=== PATIENT | male | born 1945 | race Caucasian/White ===

== ENCOUNTER 2017-07-21 13:19 | Inpatient (IN) | payer MEDICARE, SELFPAY ==
[2017-07-21] VITALS (8 sets, daily range): BP systolic 100–129; BP diastolic 51–95; PULSE 63–80; RESP 18–20; TEMP 36.1–36.8; O2SAT 93–100; BMI 28.2
--- NOTE | 2017-07-21 14:05 | EKG12_ITS ---
Test Reason : LOWER EXTREMITY Blood Pressure : / mmHG Vent. Rate : 065 BPM Atrial Rate : 064 BPM P-R Int : 000 ms QRS Dur : 106 ms QT Int : 460 ms P-R-T Axes : 000 -35 070 degrees QTc Int : 478 ms Atrial fibrillation with premature ventricular or aberrantly conducted complexes Left axis deviation Inferior infarct , age undetermined Abnormal ECG Confirmed by ALISA ELMORE, LAVERNE ([id number]), photograph editor MICHELE DELACRUZ ([id number]) on 07/25/2017 2:49:46 PM Referred By: ELBA Confirmed By:LAVERNE CUELLAR MD
--- NOTE | 2017-07-21 14:06 | ED.VIS.GEN ---
History of Present Illness Chief Complaint: Wound Informant: Patient, Family Onset: Days - 4 Context: Gradual Onset Timing: Continuous Quality: Bruising, painful, red Location: Bilateral lower extremities Current Severity: Severe Maximum Severity: Severe Worsened by: Palpation, attempting to walk Relieved by: Leaving them alone Associated Symptoms: Generalized weakness, lightheadedness. No presyncope or syncope. No fever Narrative: Has chronic wounds of his lower extremities, his daughter helps to take care of him and has been keeping them clean, but she states that they started looking bad and becoming red and more painful for about 4 days. Seen at PCPs office today, and sent to ER because he looked ill, jaundiced, blood pressure 80/50, with pulse in the 50s, concern for sepsis. Family states that he has really just been sitting on his bottom and not getting up. He complains of discomfort there. - Past Medical History (1) CAD (coronary artery disease) Status: Chronic (2) CHF (congestive heart failure) Status: Chronic (3) CVA (cerebral vascular accident) Status: Chronic (4) Hypothyroidism Status: Chronic (5) h/o afib after cabg Status: Chronic (6) h/o cabg Status: Chronic Past Medical History - Allergies and Home Meds Allergies/Adverse Reactions: Allergies latex Allergy (Verified 07/21/17 13:21) Rash LEEANN Inhibitors Adverse Reaction (Verified 10/28/16 18:44) Other Home Medications: Home Medications Medication Instructions Recorded Amiodarone HCl [Amiodarone HCl] 200 mg PO DAILY 10/28/16 Atorvastatin Calcium [Lipitor] 20 mg PO QHS 10/28/16 Carvedilol [Coreg (Beta Kaycee)] 12.5 mg PO BID 10/28/16 Furosemide [Lasix] 40 mg PO DAILY 10/28/16 Levothyroxine [Synthroid] 88 mcg PO DAILY 10/28/16 Losartan Potassium [Losartan 25 mg PO DAILY 10/28/16 Potassium] Potassium Chloride [Klor-Con M10] 10 meq PO DAILY 10/28/16 Tamsulosin HCl [Flomax] 0.4 mg PO QHS 10/28/16 Warfarin [Coumadin ([facility])] 2.5 mg PO DAILY 10/28/16 Furosemide [Lasix] 20 mg PO DINNER 07/21/17 Sertraline HCl [Zoloft] 50 mg PO DAILY 07/21/17 Primary Care Physician: Donnie Marrero DO [Primary Care Provider] - Smoking Status: Former smoker Review of Systems All systems negative except as indicated General: Reports: Malaise Musculoskeletal: Reports: Extremity Pain Skin: Reports: Wounds Neurological: Reports: - - Lightheadedness without presyncope or syncope Physical Exam Vital Signs/Narrative: Vital Signs Temp Pulse Resp BP Pulse Ox 07/21/17 13:21 96.9 F L 80 20 H 125/53 H 93 Inital Vital Signs reviewed: Yes General: Well nourished, Well developed Head: Normocephalic, Atraumatic. Negative for: Trauma, Tenderness Eyes: Perrl, EOMI. Negative for: Scleral icterus ENT: Moist mucous membranes, No rhinorrhea. Negative for: Nasal congestion, Sinus tenderness Neck: Supple, Nontender, No lymphadenopathy Cardiovascular: Regular rate, Regular rhythm, No murmurs Respiratory: No distress, CTA bilaterally, Chest nontender Abdomen: Soft, Nontender, Nondistended - abdominal obesity, Normal bowel sounds : sacral decubitus ulceration x 2 w/o acute infection/abscess Back: Nontender, Normal Inspection Extremities: Nontender, No edema Skin: Normal color, - - Chronic bilateral lower extremity wounds scattered from lower leg into feet and web spaces that appear to be infected, no active expressible discharge, but significant erythema that blanches less than 3 seconds and significantly tender throughout all erythematous areas, up to proximal lower legs. Good range of motion of knees, but limited range of motion of ankle secondary to pain, and the fact that every time he does so, his legs touch his bed which creates pain. No subcutaneous emphysema palpated, no definite necrotic tissue. No visible lymphangitis. Neurological: Alert, Oriented x3, Cranial nerves II-XII grossly intact, Normal Strength, Normal Sensation Psychological: Normal affect Diagnostic/Tx/Re-eval Impressions Chest X-Ray 07/21/17 14:15 IMPRESSION: Cardiomegaly. Stable pleural parenchymal changes at the left lung base. Electronically Signed: Edgard Alejo MD at 15:14 EDT Tel [phone], Service support , 07/21/17 14:15 Chest 1 View (Portable) [RAD] Stat Laboratory Results 07/21/17 07/21/17 07/21/17 Range/Units 14:25 14:25 14:25 WBC 8.6 (4.4-11.0) K/mm3 RBC 4.28 L (4.6-6.2) M/mm3 Hgb 8.3 L (13.0-16.5) g/dl Hct 28.5 L (40-54) % MCV 66.6 L (80-94) fL MCH 19.4 L (27.0-32.0) pg MCHC 29.1 L (32-36) g/gl RDW 21.6 H (11.6-14.6) % RDW Differential 51.8 H (35.1-43.9) fl Plt Count 186 (150-450) K/mm3 MPV 8.2 (6.2-12.0) fl Immature Gran % (Auto) 0.100 (0.0-0.9) % Neut % (Auto) 76.1 H (47-70) % Lymph % (Auto) 7.9 L (19-41) % Emery % (Auto) 14.2 H (0-10) % Eos % (Auto) 1.4 (0-5) % Baso % (Auto) 0.3 (0-1) % Absolute Neuts (auto) 6.5 (2.0-7.7) X10^3/uL Absolute Lymphs (auto) 0.68 L (0.83-4.51) X10^3/ul Total Counted Not Reportable Differential Comment COMMENT PT 23.4 H (11.7-14.9) SECONDS INR 2.1 APTT 38.1 H (24.1-36.2) Seconds Sodium 133 L (136-145) mmol/L Potassium 3.8 (3.5-5.1) mmol/L Chloride 99 (98-107) mmol/L Carbon Dioxide 27.0 (21.0-32.0) mmol/L Anion Gap 7 (5-15) BUN 21 H (7-18) mg/dL Creatinine 1.47 H (0.70-1.30) mg/dL Estim Creat Clear Calc 52.81 ml/min Est GFR (MDRD) Af Amer 61 (>60) mL/min Est GFR (MDRD) Non-Af 50 L (>60) mL/min BUN/Creatinine Ratio 14.3 (10-20) RATIO Glucose 98 (74-106) mg/dL Lactic Acid (0.4-2.0) mmol/L Calcium 7.9 L (8.5-10.1) mg/dL Total Bilirubin 0.70 (0.20-1.00) mg/dL Direct Bilirubin 0.46 H (0.00-0.30) mg/dL AST 19 (15-37) U/L ALT 22 (16-61) U/L Alkaline Phosphatase 200 H (45-117) U/L Total Protein 7.2 (6.4-8.2) g/dL Albumin 2.9 L (3.2-5.0) g/dL Globulin 4.3 H (2.2-4.2) g/dL Albumin/Globulin Ratio 0.7 L (0.9-2.4) RATIO 05/14/18 Range/Units 14:25 WBC (4.4-11.0) K/mm3 RBC (4.6-6.2) M/mm3 Hgb (13.0-16.5) g/dl Hct (40-54) % MCV (80-94) fL MCH (27.0-32.0) pg MCHC (32-36) g/gl RDW (11.6-14.6) % RDW Differential (35.1-43.9) fl Plt Count (150-450) K/mm3 MPV (6.2-12.0) fl Immature Gran % (Auto) (0.0-0.9) % Neut % (Auto) (47-70) % Lymph % (Auto) (19-41) % Emery % (Auto) (0-10) % Eos % (Auto) (0-5) % Baso % (Auto) (0-1) % Absolute Neuts (auto) (2.0-7.7) X10^3/uL Absolute Lymphs (auto) (0.83-4.51) X10^3/ul Total Counted Differential Comment PT (11.7-14.9) SECONDS INR APTT (24.1-36.2) Seconds Sodium (136-145) mmol/L Potassium (3.5-5.1) mmol/L Chloride (98-107) mmol/L Carbon Dioxide (21.0-32.0) mmol/L Anion Gap (5-15) BUN (7-18) mg/dL Creatinine (0.70-1.30) mg/dL Estim Creat Clear Calc ml/min Est GFR (MDRD) Af Amer (>60) mL/min Est GFR (MDRD) Non-Af (>60) mL/min BUN/Creatinine Ratio (10-20) RATIO Glucose (74-106) mg/dL Lactic Acid 1.4 (0.4-2.0) mmol/L Calcium (8.5-10.1) mg/dL Total Bilirubin (0.20-1.00) mg/dL Direct Bilirubin (0.00-0.30) mg/dL AST (15-37) U/L ALT (16-61) U/L Alkaline Phosphatase (45-117) U/L Total Protein (6.4-8.2) g/dL Albumin (3.2-5.0) g/dL Globulin (2.2-4.2) g/dL Albumin/Globulin Ratio (0.9-2.4) RATIO - Medical Decision Making Consistent with cellulitis and wound infections, started on Zosyn empirically. Since there was the question of jaundice, liver enzymes were sent but they are okay. His pressures were low as an outpatient, but here they have been stable. He was given fluids anyhow, and antibiotics as above. No significant changes in the level of redness in his legs compared with the initial exam. We will offer him pain medication, and given the significant degree of cellulitis, I think admission for IV antibiotics and probably wound care, and after speaking with family, he may need placement after his acute admission. At this time, he is too weak to even stand on his own, especially because of the pain in his legs, not able to care for himself at home. ED Disposition - Plan for ED Patient: Disposition: Acute Care Hospital [facility] Chief Complaint: Wound Diagnosis: Cellulitis of both lower extremities, Chronic wound of extremity, Decubitus ulcer of sacral area Referrals: Donnie Marrero DO [Primary Care Provider] -
--- NOTE | 2017-07-21 14:13 | ED.RN ---
CASE MANAGEMENT NOTIFIED OF DAUGHTER'S CONCERNS VOICED TO THIS RN. BRANNON STATES PT IS NON-COMPLIANT WITH CARE, REFUSES TO GET OUT OF CHAIR, SLEEPS IN CHAIR, INCONTINENT OF URINE, NOT TAKING MEDS, VERBALLY ABUSIVE TO DAUGHTER AND , THREATENS PHYSICAL HARM TO WHEN ANGRY.
--- NOTE | 2017-07-21 14:15 | RAD_ITS ---
STUDY: X-RAY CHEST REASON FOR EXAM: Male, 72 years old. Lower extremity wounds. TECHNIQUE: Single AP portable view of the chest. COMPARISON: Comparison is made with prior study dated October 28, 2016. FINDINGS: Stable pleural parenchymal changes at the left lung base suggestive of pleural scarring and a left basilar scarring. Sternal cerclage wires and vascular clips are present from a prior sternotomy and coronary artery bypass graft procedure (CABG). Moderate cardiac enlargement. Normal mediastinum and alex. Normal visualized pulmonary arteries. There is atherosclerotic calcification of the aortic arch with tortuosity. There are diffuse degenerative changes of the visualized thoracic spine. Normal visualized ribs, clavicles, and shoulders. There is no demonstrated abnormality of the visualized soft tissue structures of the upper abdomen. RAD/Chest 1 View (Portable) IMPRESSION: Cardiomegaly. Stable pleural parenchymal changes at the left lung base. Electronically Signed: Edgard Alejo MD at 15:14 EDT Tel [phone], Service support ,
[2017-07-21] MEDS: 0.9% Normal Saline 1,000 ML IV.SOLN. 1000 ML IV (14:43)
[2017-07-21 14:47] LABS: International Normalized Ratio 2.1; Prothrombin Time (Protime)PT. 23.4 SECONDS (11.7-14.9)
[2017-07-21 14:48] LABS: Partial Thromboplast Time 38.1 Seconds (24.1-36.2)
[2017-07-21] MEDS: Piperacil/Tazobactam 3.375 GM/50 ML ML IV (14:48)
[2017-07-21 14:54] LABS: ALB/GLOB Ratio 0.7 RATIO (0.9-2.4); AST(SGOT) 19 U/L (15-37); Absolute Lymphocyte Count 0.68 X10^3/ul (0.83-4.51); Absolute Neutrophil Count 6.5 X10^3/uL (2.0-7.7); Alanine Aminotransfer ALT/SGPT 22 U/L (16-61); Albumin, Serum 2.9 g/dL (3.2-5.0); Alkaline Phosphatase 200 U/L (45-117); Anion Gap 7 (5-15); BUN 21 mg/dL (7-18); BUN/Creat Ratio 14.3 RATIO (10-20); Basophil# 0.03 X10^3/uL; Basophil% 0.3 % (0-1); Bilirubin, Direct 0.46 mg/dL (0.00-0.30); Calcium,Total 7.9 mg/dL (8.5-10.1); Chloride 99 mmol/L (98-107); Creatinine, Serum 1.47 mg/dL (0.70-1.30); EST Glomerular Filtration Rate 50 mL/min (>60); Eosinophil# 0.12 X10^3/uL; Eosinophils% 1.4 % (0-5); Est Glom Filt Rate - Afr Amer 61 mL/min (>60); Estimated Creatinine Clearance 52.81 ml/min; Globulin 4.3 g/dL (2.2-4.2); Glucose 98 mg/dL (74-106); Hematocrit 28.5 % (40-54); Hemoglobin 8.3 g/dl (13.0-16.5); Lymphocyte # 0.68 X10^3/ul (4.0); Lymphocyte % 7.9 % (19-41); Mean Corp Hgb Conc 29.1 g/gl (32-36); Mean Corpuscular Hgb 19.4 pg (27.0-32.0); Mean Corpuscular Volume 66.6 fL (80-94); Mean Platelet Vol. 8.2 fl (6.2-12.0); Monocyte# 1.22 X10^3/uL; Monocyte% 14.2 % (0-10); Neutrophil # 6.53 X10^3/uL (2.7-7.7); Neutrophil % 76.1 % (47-70); Platelet Count 186 K/mm3 (150-450); Potassium 3.8 mmol/L (3.5-5.1); Protein, Total 7.2 g/dL (6.4-8.2); RBC Distribution Width CV 21.6 % (11.6-14.6); RBC Distribution Width SD 51.8 fl (35.1-43.9); Red Blood Count 4.28 M/mm3 (4.6-6.2); Sodium Level 133 mmol/L (136-145); White Blood Count 8.6 K/mm3 (4.4-11.0)
[2017-07-21 14:56] LABS: POSITIVE COUNT NO; POSITIVE DIFFERENTIAL NO; POSITIVE MORPHOLOGY YES
[2017-07-21 14:57] LABS: Differential Indicated SCAN CRITERIA MET
[2017-07-21 15:02] LABS: Lactic Acid 1.4 mmol/L (0.4-2.0)
--- NOTE | 2017-07-21 15:59 | CASEMGMT ---
Social Work Note Face to face with the pt to complete initial assessment as pt is an anticipated admission. Introduced self and role at [facility]. Pt presents with pleasant affect and is eating. Requests that SW ask his daughter questions as he reports that she knows more than he does. Per the pt's daughter he lives with family in a two-story home. She denies that he has access issues and is able to manage the stair case that leads to their tub/shower. DME consists of a cane and rollator which the pt uses at baseline. Claims that they would like to get a standard walker. Daughter reports that the pt can independently complete ADL's, but chooses to not. She suspects dementia, but the pt has not received a diagnosis. She claims that he becomes very agitated in the evenings and has had trouble sleeping. Claims that his short-term memory went after his stroke, but his memory has been declining as well. She denies that he has chronic illnesses, but CHF is listed on the chart. Confirms that his PCP is Dr. Donnie Marrero and their preferred pharmacy is [facility]. Denies that he sees any specialists. The pt's daughter expresses frustration with the pt as evidenced by tone of voice and conversation directed at the pt. Inquire what their anticipated needs at discharge are at this time daughter is not sure. Denies that they have C services or that the pt has been in a SNF in the past. Denies have advanced directives and declines information at this time. Inform that RN MANDY or JARRED can assist with obtaining a script for a walker and recommendations for needs at discharge will be reviewed prior to discharge for a safe disposition. Understanding expressed and staff on assigned unit to follow for discharge planning. Maribell Smart, ACCOUNTING LECTURER, GASKET SUPERVISOR
--- NOTE | 2017-07-21 16:35 | ED.RN ---
PT AND DAUGHTER YELLING AT EACH OTHER IN ROOM, THIS RN HEARD FROM ANOTHER PT'S ROOM. RN IN TO SPEAK TO PT, PT DEMANDING FOOD. SANDWICH AND DRINK GIVEN. DAUGHTER TEARFUL, STATES I JUST DON'T KNOW WHAT TO DO ANYMORE. CASE MANAGEMENT IN TO SPEAK TO DAUGHTER. PT NOTED TO HAVE VERY POOR HYGIENE. DRIED BM ON BUTTOCKS, PRESSURE ULCERS NOTED ON BUTTOCKS (SEE WOUND ASSESSMENT), BUTTOCKS REDDENED, GROIN EXCORIATED. PER DAUGHTER PT SITS IN HIS CHAIR AND WETS HIMSELF, REFUSES TO CLEAN UP.
[2017-07-21] MEDS: Morphine 2 MG/ML Syringe IV (17:33)
--- NOTE | 2017-07-21 18:04 | ED.RN ---
PT STRAIGHT CATHED FOR STERILE URINE SPEC, LABELED AND SENT TO LAB BY THIS RN. LAB STATES THEY DO NOT HAVE URINE SPECIMEN, AWARE, DOES NOT WANT CATHED AGAIN.
--- NOTE | 2017-07-21 18:36 | PCM.HP.STD ---
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 Patient also has some wounds which the family is trying to manage but the patient compromises her care by not following instructions and sometimes intentionally been doing what they have done. There were concerns because of redness on his legs. Patient presented to his primary care's office and was hypotensive. Patient was sent to the emergency room for further evaluation. Patient was normotensive here but did receive IV fluids. Patient did have a lower extremity erythema and I was started on vancomycin. History is primarily obtained through the patient's daughter is a patient keeps asking when he is getting be going upstairs, as referencing his hospital room. [] Past Medical History Past Medical History (Chronic Problems): Chronic Problems Chronic wound of extremity (Chronic) Decubitus ulcer of sacral area (Chronic) Hypothyroidism (Chronic) h/o afib after cabg (Chronic) h/o cabg (Chronic) CVA (cerebral vascular accident) (Chronic) CAD (coronary artery disease) (Chronic) CHF (congestive heart failure) (Chronic) Allergies latex Allergy (Verified 07/21/17 13:21) Rash LEEANN Inhibitors Adverse Reaction (Verified 10/28/16 18:44) Other Home Medications: Ambulatory Orders Medication Instructions Recorded Amiodarone HCl [Amiodarone HCl] 200 mg PO DAILY 10/28/16 Atorvastatin Calcium [Lipitor] 20 mg PO QHS 10/28/16 Carvedilol [Coreg (Beta Kaycee)] 12.5 mg PO BID 10/28/16 Furosemide [Lasix] 40 mg PO DAILY 10/28/16 Levothyroxine [Synthroid] 88 mcg PO DAILY 10/28/16 Losartan Potassium [Losartan 25 mg PO DAILY 10/28/16 Potassium] Potassium Chloride [Klor-Con M10] 10 meq PO DAILY 10/28/16 Tamsulosin HCl [Flomax] 0.4 mg PO QHS 10/28/16 Warfarin [Coumadin ([facility]KC)] 2.5 mg PO DAILY 10/28/16 Furosemide [Lasix] 20 mg PO DINNER 07/21/17 Sertraline HCl [Zoloft] 50 mg PO DAILY 07/21/17 Surgical History: coronary bypass surgery Lives: Spouse/ Significant Other Smoking Status: Former smoker Tobacco Use: Cigarettes Alcohol: None Drugs: None - *Family History Maternal History Items: - - patient is confused and unable to get adequate family history from him. Review of Systems Constitutional: Denies: Chills, Fever, Weight Change Eyes: Denies: Blurred vision, Double vision HEENT: Denies: Head Aches, Sinus Congestion, Sinus Drainage Cardiovascular: Denies: Chest Pain, Palpitations Respiratory: Denies: Cough, Shortness of breath at rest, Sputum production Gastrointestinal: Denies: Abdominal Pain, Nausea, Vomiting Genitourinary: Denies: Dysuria Musculoskeletal: Denies: Joint Pain, Joint Tenderness Skin: Reports: Rash, Wounds Neurological: Denies: Numbness, Tingling, Focal weakness Hematologic/ Lymphatic: Denies: Easy Bruising, Easy Bleeding, Hx of blood clot VTE Information - Inpt Only VTE Present on Admission: No VTE Pharm Prophylaxis ordered?: Yes Patient Problems: Active and Suspected Problems Cellulitis of both lower extremities (Acute) - Physical Exam General: Cooperative, No apparent distress, - - Patient is awake and interactive. Oriented to self HEENT: Atraumatic, Normocephalic Oral: Moist Mucosa Neck: No Nodes, Thyroid Normal Size and Texture Lungs: Clear to auscultation, Normal air movement, No rhonchi, No wheeze Cardiovascular: Regular rate, Regular Rhythm, Normal S1, Normal S2, No murmurs Abdomen: Bowel Sounds Present, Soft, Non Tender, Non-Distended, No Hepato-splenomegaly Extremities: Edema, Tenderness Skin: - - Erythema of the lower extremities without warmth. Does have some superficial ulcerations and some skin sloughing on the lower extremities. No odor was appreciated. Palpation of his lower extremities is very tender to palpation. No clear line of demarcation of either lower extremities. Musculoskeletal: No Tenderness to Palpation of Joints or Extremities, No Muscle Wasting Neurological: Muscle tone normal, Sensory exam intact to light touch and pain Psych/Mental Status: Normal Affect, Appropriate Vital Signs Temp Pulse Resp BP Pulse Ox 36.8 C 64 18 100/73 96 07/21/17 14:44 07/21/17 18:10 07/21/17 18:10 07/21/17 18:10 07/21/17 17:37 Oxygen Delivery Method Room Air Weight: 99.79 kg Body Mass Index (BMI) 28.2 Laboratory Tests Past 24 Hrs 07/21/17 07/21/17 07/21/17 14:25 14:25 14:25 WBC 8.6 RBC 4.28 L Hgb 8.3 L Hct 28.5 L MCV 66.6 L MCH 19.4 L MCHC 29.1 L RDW 21.6 H RDW Differential 51.8 H Plt Count 186 MPV 8.2 Immature Gran % (Auto) 0.100 Neut % (Auto) 76.1 H Lymph % (Auto) 7.9 L Glenn % (Auto) 14.2 H Eos % (Auto) 1.4 Baso % (Auto) 0.3 Absolute Neuts (auto) 6.5 Absolute Lymphs (auto) 0.68 L Total Counted Not Reportable Differential Comment COMMENT PT 23.4 H INR 2.1 APTT 38.1 H Sodium 133 L Potassium 3.8 Chloride 99 Carbon Dioxide 27.0 Anion Gap 7 BUN 21 H Creatinine 1.47 H Estim Creat Clear Calc 52.81 Est GFR (MDRD) Af Amer 61 Est GFR (MDRD) Non-Af 50 L BUN/Creatinine Ratio 14.3 Glucose 98 Lactic Acid Calcium 7.9 L Total Bilirubin 0.70 Direct Bilirubin 0.46 H AST 19 ALT 22 Alkaline Phosphatase 200 H Total Protein 7.2 Albumin 2.9 L Globulin 4.3 H Albumin/Globulin Ratio 0.7 L 07/21/17 14:25 WBC RBC Hgb Hct MCV MCH MCHC RDW RDW Differential Plt Count MPV Immature Gran % (Auto) Neut % (Auto) Lymph % (Auto) Glenn % (Auto) Eos % (Auto) Baso % (Auto) Absolute Neuts (auto) Absolute Lymphs (auto) Total Counted Differential Comment PT INR APTT Sodium Potassium Chloride Carbon Dioxide Anion Gap BUN Creatinine Estim Creat Clear Calc Est GFR (MDRD) Af Amer Est GFR (MDRD) Non-Af BUN/Creatinine Ratio Glucose Lactic Acid 1.4 Calcium Total Bilirubin Direct Bilirubin AST ALT Alkaline Phosphatase Total Protein Albumin Globulin Albumin/Globulin Ratio Assessment/Plan Active and Suspected Problems Cellulitis of both lower extremities (Acute) 1. Bilateral lower extremity erythema, possible cellulitis Could be cellulitis though favoring is probably another process. But in the meantime, patient will be on ceftezole and and I will check wound cultures. I may concern is that this could be just venous stasis changes. Concerned the patient may have some arterial insufficiency as well that may complicate this overall picture. Will have the wound care see him Check ankle-brachial indexes 2. Cognitive impairment Prior to the patient's stroke 5 or 6 years ago, patient was very independent. Daughter states that they have been witnessing a gradual decline and patient has been very impulsive as well. Would recommend that he follow-up with a geriatric Center for for formal dementia evaluation. The patient does have dementia I would favor it probably being the vascular type given his prior history of stroke. 3. DVT prophylaxis with Lovenox 4. Advanced care planning: Discussed with patient's daughter. Patient has no power of assistant district attorney at this time and patient is not competent to make any adequate decision at this time. She has no current DNR order on file and therefore he is full CODE STATUS. Patient is next of kin is his is not currently present. Recommend leeann talk with case management in regards to formally setting up a power of assistant district attorney for the patient. Code Visit Inpatient E&M: 29202 Init Hosp L3
--- NOTE | 2017-07-21 18:44 | HP.PCM_ITS ---
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 Patient also has some wounds which the family is trying to manage but the patient compromises her care by not following instructions and sometimes intentionally been doing what they have done. There were concerns because of redness on his legs. Patient presented to his primary care's office and was hypotensive. Patient was sent to the emergency room for further evaluation. Patient was normotensive here but did receive IV fluids. Patient did have a lower extremity erythema and I was started on vancomycin. History is primarily obtained through the patient's daughter is a patient keeps asking when he is getting be going upstairs, as referencing his hospital room. [] Past Medical History Past Medical History (Chronic Problems): Chronic Problems Chronic wound of extremity (Chronic) Decubitus ulcer of sacral area (Chronic) Hypothyroidism (Chronic) h/o afib after cabg (Chronic) h/o cabg (Chronic) CVA (cerebral vascular accident) (Chronic) CAD (coronary artery disease) (Chronic) CHF (congestive heart failure) (Chronic) Allergies latex Allergy (Verified 07/21/17 13:21) Rash LEEANN Inhibitors Adverse Reaction (Verified 10/28/16 18:44) Other Home Medications: Ambulatory Orders Medication Instructions Recorded Amiodarone HCl [Amiodarone HCl] 200 mg PO DAILY 10/28/16 Atorvastatin Calcium [Lipitor] 20 mg PO QHS 10/28/16 Carvedilol [Coreg (Beta Kaycee)] 12.5 mg PO BID 10/28/16 Furosemide [Lasix] 40 mg PO DAILY 10/28/16 Levothyroxine [Synthroid] 88 mcg PO DAILY 10/28/16 Losartan Potassium [Losartan 25 mg PO DAILY 10/28/16 Potassium] Potassium Chloride [Klor-Con M10] 10 meq PO DAILY 10/28/16 Tamsulosin HCl [Flomax] 0.4 mg PO QHS 10/28/16 Warfarin [Coumadin ([facility])] 2.5 mg PO DAILY 10/28/16 Furosemide [Lasix] 20 mg PO DINNER 07/21/17 Sertraline HCl [Zoloft] 50 mg PO DAILY 07/21/17 Surgical History: coronary bypass surgery Lives: Spouse/ Significant Other Smoking Status: Former smoker Tobacco Use: Cigarettes Alcohol: None Drugs: None - *Family History Maternal History Items: - - patient is confused and unable to get adequate family history from him. Review of Systems Constitutional: Denies: Chills, Fever, Weight Change Eyes: Denies: Blurred vision, Double vision HEENT: Denies: Head Aches, Sinus Congestion, Sinus Drainage Cardiovascular: Denies: Chest Pain, Palpitations Respiratory: Denies: Cough, Shortness of breath at rest, Sputum production Gastrointestinal: Denies: Abdominal Pain, Nausea, Vomiting Genitourinary: Denies: Dysuria Musculoskeletal: Denies: Joint Pain, Joint Tenderness Skin: Reports: Rash, Wounds Neurological: Denies: Numbness, Tingling, Focal weakness Hematologic/ Lymphatic: Denies: Easy Bruising, Easy Bleeding, Hx of blood clot VTE Information - Inpt Only VTE Present on Admission: No VTE Pharm Prophylaxis ordered?: Yes Patient Problems: Active and Suspected Problems Cellulitis of both lower extremities (Acute) - Physical Exam General: Cooperative, No apparent distress, - - Patient is awake and interactive. Oriented to self HEENT: Atraumatic, Normocephalic Oral: Moist Mucosa Neck: No Nodes, Thyroid Normal Size and Texture Lungs: Clear to auscultation, Normal air movement, No rhonchi, No wheeze Cardiovascular: Regular rate, Regular Rhythm, Normal S1, Normal S2, No murmurs Abdomen: Bowel Sounds Present, Soft, Non Tender, Non-Distended, No Hepato- splenomegaly Extremities: Edema, Tenderness Skin: - - Erythema of the lower extremities without warmth. Does have some superficial ulcerations and some skin sloughing on the lower extremities. No odor was appreciated. Palpation of his lower extremities is very tender to palpation. No clear line of demarcation of either lower extremities. Musculoskeletal: No Tenderness to Palpation of Joints or Extremities, No Muscle Wasting Neurological: Muscle tone normal, Sensory exam intact to light touch and pain Psych/Mental Status: Normal Affect, Appropriate Vital Signs Temp Pulse Resp BP Pulse Ox 36.8 C 64 18 100/73 96 07/21/17 14:44 07/21/17 18:10 07/21/17 18:10 07/21/17 18:10 07/21/17 17:37 Oxygen Delivery Method Room Air Weight: 99.79 kg Body Mass Index (BMI) 28.2 Laboratory Tests Past 24 Hrs 07/21/17 07/21/17 07/21/17 14:25 14:25 14:25 WBC 8.6 RBC 4.28 L Hgb 8.3 L Hct 28.5 L MCV 66.6 L MCH 19.4 L MCHC 29.1 L RDW 21.6 H RDW Differential 51.8 H Plt Count 186 MPV 8.2 Immature Gran % (Auto) 0.100 Neut % (Auto) 76.1 H Lymph % (Auto) 7.9 L [place] % (Auto) 14.2 H Eos % (Auto) 1.4 Baso % (Auto) 0.3 Absolute Neuts (auto) 6.5 Absolute Lymphs (auto) 0.68 L Total Counted Not Reportable Differential Comment COMMENT PT 23.4 H INR 2.1 APTT 38.1 H Sodium 133 L Potassium 3.8 Chloride 99 Carbon Dioxide 27.0 Anion Gap 7 BUN 21 H Creatinine 1.47 H Estim Creat Clear Calc 52.81 Est GFR (MDRD) Af Amer 61 Est GFR (MDRD) Non-Af 50 L BUN/Creatinine Ratio 14.3 Glucose 98 Lactic Acid Calcium 7.9 L Total Bilirubin 0.70 Direct Bilirubin 0.46 H AST 19 ALT 22 Alkaline Phosphatase 200 H Total Protein 7.2 Albumin 2.9 L Globulin 4.3 H Albumin/Globulin Ratio 0.7 L 07/21/17 14:25 WBC RBC Hgb Hct MCV MCH MCHC RDW RDW Differential Plt Count MPV Immature Gran % (Auto) Neut % (Auto) Lymph % (Auto) [place] % (Auto) Eos % (Auto) Baso % (Auto) Absolute Neuts (auto) Absolute Lymphs (auto) Total Counted Differential Comment PT INR APTT Sodium Potassium Chloride Carbon Dioxide Anion Gap BUN Creatinine Estim Creat Clear Calc Est GFR (MDRD) Af Amer Est GFR (MDRD) Non-Af BUN/Creatinine Ratio Glucose Lactic Acid 1.4 Calcium Total Bilirubin Direct Bilirubin AST ALT Alkaline Phosphatase Total Protein Albumin Globulin Albumin/Globulin Ratio Assessment/Plan Active and Suspected Problems Cellulitis of both lower extremities (Acute) 1. Bilateral lower extremity erythema, possible cellulitis * Could be cellulitis though favoring is probably another process. But in the meantime, patient will be on ceftezole and and I will check wound cultures. * I may concern is that this could be just venous stasis changes. Concerned the patient may have some arterial insufficiency as well that may complicate this overall picture. * Will have the wound care see him * Check ankle-brachial indexes 2. Cognitive impairment * Prior to the patient's stroke 5 or 6 years ago, patient was very independent. Daughter states that they have been witnessing a gradual decline and patient has been very impulsive as well. * Would recommend that he follow-up with a geriatric Center for for formal dementia evaluation. The patient does have dementia I would favor it probably being the vascular type given his prior history of stroke. 3. DVT prophylaxis with Lovenox 4. Advanced care planning: Discussed with patient's daughter. Patient has no power of commercial real estate attorney at this time and patient is not competent to make any adequate decision at this time. She has no current DNR order on file and therefore he is full CODE STATUS. Patient is next of kin is his is not currently present. Recommend leeann talk with case management in regards to formally setting up a power of commercial real estate attorney for the patient. Code Visit Inpatient E&M: 84285 Init Hosp L3
[2017-07-21] MEDS: Cefazolin 1 GM/50 ML BAG IV (21:53)
[2017-07-21] MEDS: Acetaminophen 325 MG Tablet 650 MG PO (21:53)
[2017-07-21] MEDS: Tamsulosin HCl 0.4 MG Capsule PO (21:55)
[2017-07-21] MEDS: Carvedilol 12.5 MG Tablet PO (21:55)
[2017-07-21] MEDS: Atorvastatin Calcium 20 MG Tablet PO (21:55)
[2017-07-21 22:30] LABS: Bacteria 0 SEEN /hpf (None Seen); Mucous, Urine 0 SEEN /hpf (<or=2+); Red Blood Cells-Urine 0 SEEN /hpf (0-5); Squamous Epithelial Cells - UA 0 SEEN /hpf (0-5)
[2017-07-21 22:37] LABS: Color, Urine Yellow (Yellow); Glucose, Dipstick Normal (Normal); Ketone-Dipstick Negative (Negative); Leukocyte Esterase-Dipstick 25 /ul (Negative); Nitrite-Dipstick Negative (Negative); Occult Blood-Urine Negative /ul (Negative); Protein-Dipstick 15 mg/dl (Negative); Specific Gravity, Urine 1.015 (1.002-1.030); Urine Bilirubin Dipstick Negative (Negative); Urine Clarity Clear (Clear); Urine Urobilinogen Normal (Normal)
[2017-07-21 22:49] LABS: White Blood Cells 0-5 SEEN /hpf (0-5)
[2017-07-21 23:51] LABS: M R Staph aureus DNA By PCR Negative (Negative); Probe Check PASS; Specimen Processing Control PASS; Staph aureus DNA By PCR POSITIVE (Negative)
[2017-07-22] VITALS (10 sets, daily range): BP systolic 90–139; BP diastolic 51–69; PULSE 62–90; RESP 16–18; TEMP 36.9–37.4; O2SAT 92–99
[2017-07-22] MEDS: Acetaminophen 325 MG Tablet 650 MG PO ×2 (06:05→11:53)
[2017-07-22] MEDS: Levothyroxine 88 MCG Tablet PO (06:05)
[2017-07-22] MEDS: Cefazolin 1 GM/50 ML BAG IV ×3 (06:05→21:04)
[2017-07-22 06:49] LABS: Absolute Lymphocyte Count 0.78 X10^3/ul (0.83-4.51); Absolute Neutrophil Count 4.9 X10^3/uL (2.0-7.7); Basophil# 0.05 X10^3/uL; Basophil% 0.7 % (0-1); Eosinophils% 2.9 % (0-5); Hematocrit 26.1 % (40-54); Hemoglobin 7.6 g/dl (13.0-16.5); Lymphocyte # 0.78 X10^3/ul (4.0); Lymphocyte % 11.2 % (19-41); Mean Corp Hgb Conc 29.1 g/gl (32-36); Mean Corpuscular Hgb 19.4 pg (27.0-32.0); Mean Corpuscular Volume 66.8 fL (80-94); Mean Platelet Vol. 9.2 fl (6.2-12.0); Monocyte# 1.05 X10^3/uL; Monocyte% 15.1 % (0-10); Neutrophil # 4.86 X10^3/uL (2.7-7.7); Neutrophil % 69.8 % (47-70); Platelet Count 208 K/mm3 (150-450); RBC Distribution Width CV 21.9 % (11.6-14.6); RBC Distribution Width SD 51.4 fl (35.1-43.9); Red Blood Count 3.91 M/mm3 (4.6-6.2)
[2017-07-22 06:50] LABS: Differential Indicated SCAN CRITERIA MET; International Normalized Ratio 2.2; POSITIVE COUNT NO; POSITIVE DIFFERENTIAL NO; POSITIVE MORPHOLOGY YES; Prothrombin Time (Protime)PT. 24.1 SECONDS (11.7-14.9)
[2017-07-22 07:04] LABS: Anion Gap 9 (5-15); BUN 21 mg/dL (7-18); BUN/Creat Ratio 15.2 RATIO (10-20); Calcium,Total 7.7 mg/dL (8.5-10.1); Chloride 100 mmol/L (98-107); Creatinine, Serum 1.38 mg/dL (0.70-1.30); EST Glomerular Filtration Rate 54 mL/min (>60); Est Glom Filt Rate - Afr Amer 65 mL/min (>60); Estimated Creatinine Clearance 56.26 ml/min; Glucose 108 mg/dL (74-106); Potassium 3.7 mmol/L (3.5-5.1); Sodium Level 134 mmol/L (136-145)
[2017-07-22 07:06] LABS: Differential Comment SCANNED
[2017-07-22 07:07] LABS: Anisocytosis 2+; Crenated RBC RARE; Hypochromasia 1+; Target Cells RARE
--- NOTE | 2017-07-22 09:09 | ECHOCS_ITS ---
Reason For Study: CHF Procedure This was a 2D Doppler, Color Flow transthoracic echocardiogram. Exam performed portable in patient room. Left Ventricle Moderate concentric left ventricular hypertrophy. Moderately dilated left ventricle. The estimated ejection fraction is 25 %. There are regional wall motion abnormalities as specified. Lateral- Basal: Severely Hypokinetic. Posterior-Basal: Severely hypokinetic. Infero-Basal: Severely Hypokinetic. Right Ventricle Severely dilated right ventricle. Mild to moderate global right ventricular systolic dysfunction. Atria The left atrium is severely enlarged. The right atrium is severely enlarged. Normal atrial septum. Mitral Valve The mitral valve is structurally normal. No prolapse or stenosis seen. Trivial mitral valve insufficiency. Tricuspid Valve Normal tricuspid valve. Mild to moderate (1-2+) tricuspid valve insufficiency. Right ventricular systolic pressure estimated to be 56 mmHg. Moderate pulmonary hypertension. Aortic Valve Trisinus/trileaflet aortic valve. Moderate diffuse aortic valve thickening. Moderate focal aortic valve thickening. Mild to moderate aortic stenosis. Peak aortic valve gradient 20 mmHg. Mean aortic valve gradient 11 mmHg. Trivial aortic valve insufficiency. Pulmonic Valve Normal pulmonic valve. Great Vessels Normal aortic root. Normal arch. The inferior vena cava is dilated. No collapse of the inferior vena cava. Pericardium/Pleural No pericardial effusion. Medication Diluted definity 2ml given slow IV push to enhance endocardial definition. MMode/2D Measurements & Calculations LVIDd: 4.7 cm IVSd: 1.4 cm LVOT diam: 2.0 cm LVIDs: 4.1 cm LVPWd: 1.4 cm LVOT area: 3.2 cm2 RVDd: 4.1 cm FS: 11.6 % Ao root diam: 3.5 cm LAV(MOD-bp): 101.5 ml LA A4 area: 27.7 cm2 LAV(MOD-bp) Indexed: 45.8 ml/m2 LAV(MOD-sp2): 102.8 ml LAV(MOD-sp4): 92.4 ml RA A4 area: 29.0 cm2 Doppler Measurements & Calculations MV E max elia: 125.7 cm/sec Lat Peak E' Elia: 13.1 cm/sec Med Peak E' Elia: 9.5 cm/sec MV A max elia: 45.4 cm/sec E/E' lat: 9.6 E/E' med: 13.3 MV E/A: 2.8 Ao V2 max: 225.3 cm/sec LV V1 max: 82.4 cm/sec SV(LVOT): 64.2 ml Ao max P.4 mmHg LV V1 max P.7 mmHg Ao V2 mean: 161.8 cm/sec LV V1 mean P.5 mmHg Ao mean P.4 mmHg LV V1 mean: 57.2 cm/sec Ao V2 VTI: 48.0 cm LV V1 VTI: 19.9 cm LINDEN(I,D): 1.3 cm2 LINDEN(V,D): 1.2 cm2 PA V2 max: 88.4 cm/sec TR max elia: 291.8 cm/sec TR max P.6 mmHg Interpretation Summary Moderate concentric left ventricular hypertrophy. Moderately dilated left ventricle. The estimated ejection fraction is 25 %. Lateral-Basal: Severely Hypokinetic. Posterior-Basal: Severely hypokinetic. Infero-Basal: Severely Hypokinetic. Severely dilated right ventricle. Mild to moderate global right ventricular systolic dysfunction. The left atrium is severely enlarged. The right atrium is severely enlarged. Trivial mitral valve insufficiency. Mild to moderate (1-2+) tricuspid valve insufficiency. Right ventricular systolic pressure estimated to be 56 mmHg. Moderate pulmonary hypertension. Mild to moderate aortic stenosis. Trivial aortic valve insufficiency. Pt appears to be in atrial fibrillation. The study was technically difficult. There is no comparison study available. Contrast injection was performed. Ordering Physician: Sarika Beth Referring Physician: TAMMIE YOUNGBLOOD Performed By: Renita Velazquez RDCS
[2017-07-22] MEDS: Sertraline 50 MG Tablet PO (09:11)
[2017-07-22] MEDS: Enoxaparin 40 MG/0.4 ML Syringe SC (09:11)
[2017-07-22] MEDS: Amiodarone 200 MG Tablet PO (09:11)
[2017-07-22] MEDS: Carvedilol 12.5 MG Tablet PO ×2 (09:11→21:03)
--- NOTE | 2017-07-22 09:13 | PCM.PROGNOTE ---
Subjective: Chief complaint: Follow-up after admission for bilateral lower extremity pain, redness and ulcers probably due to arterial ulcers and superimposed secondary bacterial infection/cellulitis. Patient seen and examined. No acute events overnight. Patient is alert and oriented but he is not able to provide any good history. He kept asking me about his phone number. He complained of bilateral leg pain, more on the right leg. Denied chest pain shortness of breath. His vital signs are stable. - Physical Exam General: Alert, No apparent distress, Disoriented, Non-Cooperative HEENT: Atraumatic, PERRLA, EOMI Oral: Moist Mucosa, No Gingival or Mucosal Lesions/ Ulcerations Neck: Supple, No JVD, Negative Carotid Bruits, Trachea Midline, Thyroid Normal Size and Texture Lungs: Clear to auscultation, No rhonchi, No wheeze, No rales, Diminished Cardiovascular: Regular rate, Regular Rhythm, Normal S1, Normal S2, PMI Normal Abdomen: Bowel Sounds Present, Soft, Non Tender, Non-Distended, No Hepato-splenomegaly Extremities: No clubbing, No cyanosis, No edema, - - Bilateral legs: Multiple superficial ulcers, dusky skin, tender, states dermatitis, mild erythema. Skin: No rashes, Ulcer/ Wound Lymphatic: No Cervical, Supraclavicular, or Inguinal Adenopathy Neurological: Cranial nerves II-XII grossly intact, Neuro grossly intact Psych/Mental Status: Anxious Vital Signs Temp Pulse Resp BP Pulse Ox 99.4 F H 90 18 105/57 L 93 07/22/17 08:52 07/22/17 09:01 07/22/17 08:52 07/22/17 08:52 07/22/17 08:52 Oxygen Delivery Method Room Air Intake and Output for Last 24 Hours 07/20/17 07/21/17 07/22/17 23:59 23:59 23:59 Intake Total 2178 / 2178 Output Total 500 / 500 Balance 1678 / 1678 Laboratory Tests Past 24 Hrs 07/21/17 07/21/17 07/22/17 21:55 22:20 05:40 WBC 7.0 RBC 3.91 L Hgb 7.6 L Hct 26.1 L MCV 66.8 L MCH 19.4 L MCHC 29.1 L RDW 21.9 H RDW Differential 51.4 H Plt Count 208 MPV 9.2 Immature Gran % (Auto) 0.300 Neut % (Auto) 69.8 Lymph % (Auto) 11.2 L [place] % (Auto) 15.1 H Eos % (Auto) 2.9 Baso % (Auto) 0.7 Absolute Neuts (auto) 4.9 Absolute Lymphs (auto) 0.78 L Total Counted Not Reportable Differential Comment SCANNED RBC Morphology RARE Hypochromasia 1+ Anisocytosis 2+ Target Cells RARE PT INR Sodium Potassium Chloride Carbon Dioxide Anion Gap BUN Creatinine Estim Creat Clear Calc Est GFR (MDRD) Af Amer Est GFR (MDRD) Non-Af BUN/Creatinine Ratio Glucose Calcium Urine Color Yellow Urine Clarity Clear Urine pH 6.0 Ur Specific [place] 1.015 Urine Protein 15 H Urine Glucose (UA) Normal Urine Ketones Negative Urine Occult Blood Negative Urine Nitrite Negative Urine Bilirubin Negative Urine Urobilinogen Normal Ur Leukocyte Esterase 25 H Urine RBC 0 SEEN Urine WBC 0-5 SEEN Ur Squamous Epith Cells 0 SEEN Urine Bacteria 0 SEEN Urine Mucus 0 SEEN S.aureus Protein A PCR POSITIVE H MRSA (PCR) Negative 07/22/17 07/22/17 05:40 05:40 WBC RBC Hgb Hct MCV MCH MCHC RDW RDW Differential Plt Count MPV Immature Gran % (Auto) Neut % (Auto) Lymph % (Auto) [place] % (Auto) Eos % (Auto) Baso % (Auto) Absolute Neuts (auto) Absolute Lymphs (auto) Total Counted Differential Comment RBC Morphology Hypochromasia Anisocytosis Target Cells PT 24.1 H INR 2.2 Sodium 134 L Potassium 3.7 Chloride 100 Carbon Dioxide 25.0 Anion Gap 9 BUN 21 H Creatinine 1.38 H Estim Creat Clear Calc 56.26 Est GFR (MDRD) Af Amer 65 Est GFR (MDRD) Non-Af 54 L BUN/Creatinine Ratio 15.2 Glucose 108 H Calcium 7.7 L Urine Color Urine Clarity Urine pH Ur Specific [place] Urine Protein Urine Glucose (UA) Urine Ketones Urine Occult Blood Urine Nitrite Urine Bilirubin Urine Urobilinogen Ur Leukocyte Esterase Urine RBC Urine WBC Ur Squamous Epith Cells Urine Bacteria Urine Mucus S.aureus Protein A PCR MRSA (PCR) Clinical Impression(s) from Imaging Studies Chest X-Ray 07/21/17 14:15 IMPRESSION: Cardiomegaly. Stable pleural parenchymal changes at the left lung base. Electronically Signed: Edgard Alejo MD at 15:14 EDT Tel [phone], Service support , Medical Necessity - Tobacco Use Smoking Status: Former smoker Tobacco Use: Cigarettes Assessment/Plan This is a 72 years old male patient with multiple medical comorbidities presented to the medicine because of bilateral leg pain, redness of both legs and he was found to have multiple nonhealing ulcers on both legs with possible secondary bacterial infection as well as acute on chronic anemia. #1 bilateral lower extremity nonhealing ulcers/probable superimposed secondary bacterial infection/cellulitis: Those ulcers are likely arterial ulcers due to peripheral vascular disease. He does have surrounding mild erythema and minimal drainage. He is on IV cefazolin. MRSA screen is negative. The patient is very poor informant and was not able to provide any good history. It is unclear for how long does also has been there and for her low his pain has been going on. His vital signs are stable, afebrile. His routine blood work is remarkable for anemia and creatinine of 1.38. Plan: Continue IV antibiotics, stat bilateral lower extremity arterial duplex, wound dressing as per wound care nurse, repeat CBC and BMP tomorrow morning, obtain records from PCPs office, PT OT evaluation and treatment. #2 peripheral vascular disease: Ankle-brachial index reviewed, revealed index of 0.97 which is consistent with at least borderline peripheral arterial disease, may be up to mild to moderate peripheral arterial disease. He is on Coumadin, INR is therapeutic at 2.2. Plan: OxyIR as needed for pain, stat bilateral arterial duplex, may need to consult vascular surgery. #3 acute on chronic anemia: Reportedly, he does have history of anemia and blood transfusion. Today's hemoglobin is 7.6 g/dL. Patient denies any evidence of active bleeding from body orifices. Plan: Transfuse 1 unit of packed RBCs, iron studies, TIBC, serum ferritin, stool for occult blood. #4 stage I sacral ulcer: Right aspect of the upper anal cleft, does not look to be infected. Plan for wound care and dressing as the wound care nurse. per #4 CAD status post CABG: EKG reviewed, revealed A. fib without acute ischemic changes, rate is controlled. Continue statins, beta blockers and losartan, 2D echocardiogram. #5 chronic atrial fibrillation: Rate is controlled, blood pressure stable. EKG reviewed. Plan to continue Coreg and amiodarone for rate control, continue Coumadin for auscultation, INR is therapeutic. #6 hypothyroidism: Continue levothyroxine. #7 history of stroke: Stable, no acute issues. Continue statins and Coumadin. #8 congestive heart failure: Unclear type, probably systolic. Seems to be controlled, compensated. Plan for 2D echocardiogram, continue Coreg and losartan, hold Lasix for now. #9 stage III chronic kidney disease: His creatinine back and October, was 1.51. Admission creatinine 1.47, today's creatinine is 1.38, stable at baseline. #10 DVT prophylaxis: INR is 2.2. This note was generated with [employer] dictation software. It may contain incorrect words, spelling, and punctuation that were not noted in checking the note before signing. Code Visit Inpatient E&M: [id number] [facility] Hosp L3
--- NOTE | 2017-07-22 09:16 | ADU_ITS ---
Reason For Study: PVD Right Velocities Left Velocities Common Femoral Artery, dist = 121 cm./sec. Common Femoral Artery, dist = 99.8 cm./sec. Supf Femoral Artery, prox = 84.1 cm./sec. Supf. Femoral Artery, prox = 163 cm./sec. Supf Femoral Artery, mid = 43.4 cm./sec. Supf. Femoral Artery, mid = 104 cm./sec. Unable to demonstrate flow in the distal SFA. Supf. Femoral Artery, dist = 135 cm./sec. Branch noted at distal SFA with a velocity of 261Profunda Femoral Artery = 82.5 cm./sec. cm/s. Popliteal Artery, mid = 61.9 cm./sec. Profunda Femoral Artery = 47.9 cm./sec. Post. Tibial Artery, prox = 51.1 cm./sec. Popliteal Artery, mid = 66.8 cm./sec. Post Tibial Artery, mid = 45.2 cm./sec. Post. Tibial Artery, mid = 17.3 cm./sec. Post Tibial Artery, dist. = 89.4 cm./sec. Post. Tibial Artery, dist = 29.1 cm./sec. Peroneal Artery,dist. = 89.4 cm./sec. Ant. Tibial Artery, prox = 40.1 cm./sec. Ant. Tibial Artery, distal = 74.6 cm./sec. Ant. Tibial Artery, dist = 42.4 cm./sec. Ant Tibial Artery, mid = 58.9 cm./sec. Unable to demonstrate flow in the Peroneal A. Ant.Tibial Artery, prox = 74.6 cm./sec. Procedure The exam was diagnostic. Exam performed portable in patient room. Difficult study due to wounds and pt movement. Interpretation Summary 1. right leg with SFA and peroneal occlussion. monophasic flow at ankle. 2. Left leg with no significant stenosis seen but decreased into femoral with biphasic flow and maintained through anterior tibial with posterior tibial and peroneal monophasic flow. Ordering Physician: Sarika Beth Performed By: Jay Jay Mcgovern RVT
--- NOTE | 2017-07-22 09:16 | PN_ITS ---
Subjective: Chief complaint: Follow-up after admission for bilateral lower extremity pain, redness and ulcers probably due to arterial ulcers and superimposed secondary bacterial infection/cellulitis. Patient seen and examined. No acute events overnight. Patient is alert and oriented but he is not able to provide any good history. He kept asking me about his phone number. He complained of bilateral leg pain, more on the right leg. Denied chest pain shortness of breath. His vital signs are stable. - Physical Exam General: Alert, No apparent distress, Disoriented, Non-Cooperative HEENT: Atraumatic, PERRLA, EOMI Oral: Moist Mucosa, No Gingival or Mucosal Lesions/ Ulcerations Neck: Supple, No JVD, Negative Carotid Bruits, Trachea Midline, Thyroid Normal Size and Texture Lungs: Clear to auscultation, No rhonchi, No wheeze, No rales, Diminished Cardiovascular: Regular rate, Regular Rhythm, Normal S1, Normal S2, PMI Normal Abdomen: Bowel Sounds Present, Soft, Non Tender, Non-Distended, No Hepato- splenomegaly Extremities: No clubbing, No cyanosis, No edema, - - Bilateral legs: Multiple superficial ulcers, dusky skin, tender, states dermatitis, mild erythema. Skin: No rashes, Ulcer/ Wound Lymphatic: No Cervical, Supraclavicular, or Inguinal Adenopathy Neurological: Cranial nerves II-XII grossly intact, Neuro grossly intact Psych/Mental Status: Anxious Vital Signs Temp Pulse Resp BP Pulse Ox 99.4 F H 90 18 105/57 L 93 07/22/17 08:52 07/22/17 09:01 07/22/17 08:52 07/22/17 08:52 07/22/17 08:52 Oxygen Delivery Method Room Air Intake and Output for Last 24 Hours 07/20/17 07/21/17 07/22/17 23:59 23:59 23:59 Intake Total 2178 / 2178 Output Total 500 / 500 Balance 1678 / 1678 Laboratory Tests Past 24 Hrs 07/21/17 07/21/17 07/22/17 21:55 22:20 05:40 WBC 7.0 RBC 3.91 L Hgb 7.6 L Hct 26.1 L MCV 66.8 L MCH 19.4 L MCHC 29.1 L RDW 21.9 H RDW Differential 51.4 H Plt Count 208 MPV 9.2 Immature Gran % (Auto) 0.300 Neut % (Auto) 69.8 Lymph % (Auto) 11.2 L [place] % (Auto) 15.1 H Eos % (Auto) 2.9 Baso % (Auto) 0.7 Absolute Neuts (auto) 4.9 Absolute Lymphs (auto) 0.78 L Total Counted Not Reportable Differential Comment SCANNED RBC Morphology RARE Hypochromasia 1+ Anisocytosis 2+ Target Cells RARE PT INR Sodium Potassium Chloride Carbon Dioxide Anion Gap BUN Creatinine Estim Creat Clear Calc Est GFR (MDRD) Af Amer Est GFR (MDRD) Non-Af BUN/Creatinine Ratio Glucose Calcium Urine Color Yellow Urine Clarity Clear Urine pH 6.0 Ur Specific [place] 1.015 Urine Protein 15 H Urine Glucose (UA) Normal Urine Ketones Negative Urine Occult Blood Negative Urine Nitrite Negative Urine Bilirubin Negative Urine Urobilinogen Normal Ur Leukocyte Esterase 25 H Urine RBC 0 SEEN Urine WBC 0-5 SEEN Ur Squamous Epith Cells 0 SEEN Urine Bacteria 0 SEEN Urine Mucus 0 SEEN S.aureus Protein A PCR POSITIVE H MRSA (PCR) Negative 07/22/17 07/22/17 05:40 05:40 WBC RBC Hgb Hct MCV MCH MCHC RDW RDW Differential Plt Count MPV Immature Gran % (Auto) Neut % (Auto) Lymph % (Auto) [place] % (Auto) Eos % (Auto) Baso % (Auto) Absolute Neuts (auto) Absolute Lymphs (auto) Total Counted Differential Comment RBC Morphology Hypochromasia Anisocytosis Target Cells PT 24.1 H INR 2.2 Sodium 134 L Potassium 3.7 Chloride 100 Carbon Dioxide 25.0 Anion Gap 9 BUN 21 H Creatinine 1.38 H Estim Creat Clear Calc 56.26 Est GFR (MDRD) Af Amer 65 Est GFR (MDRD) Non-Af 54 L BUN/Creatinine Ratio 15.2 Glucose 108 H Calcium 7.7 L Urine Color Urine Clarity Urine pH Ur Specific [place] Urine Protein Urine Glucose (UA) Urine Ketones Urine Occult Blood Urine Nitrite Urine Bilirubin Urine Urobilinogen Ur Leukocyte Esterase Urine RBC Urine WBC Ur Squamous Epith Cells Urine Bacteria Urine Mucus S.aureus Protein A PCR MRSA (PCR) Clinical Impression(s) from Imaging Studies Chest X-Ray 07/21/17 14:15 IMPRESSION: Cardiomegaly. Stable pleural parenchymal changes at the left lung base. Electronically Signed: Edgard Alejo MD at 15:14 EDT Tel [phone], Service support , Medical Necessity - Tobacco Use Smoking Status: Former smoker Tobacco Use: Cigarettes Assessment/Plan This is a 72 years old male patient with multiple medical comorbidities presented to the medicine because of bilateral leg pain, redness of both legs and he was found to have multiple nonhealing ulcers on both legs with possible secondary bacterial infection as well as acute on chronic anemia. #1 bilateral lower extremity nonhealing ulcers/probable superimposed secondary bacterial infection/cellulitis: Those ulcers are likely arterial ulcers due to peripheral vascular disease. He does have surrounding mild erythema and minimal drainage. He is on IV cefazolin. MRSA screen is negative. The patient is very poor informant and was not able to provide any good history. It is unclear for how long does also has been there and for her low his pain has been going on. His vital signs are stable, afebrile. His routine blood work is remarkable for anemia and creatinine of 1.38. Plan: Continue IV antibiotics, stat bilateral lower extremity arterial duplex, wound dressing as per wound care nurse, repeat CBC and BMP tomorrow morning, obtain records from PCPs office, PT OT evaluation and treatment. #2 peripheral vascular disease: Ankle-brachial index reviewed, revealed index of 0.97 which is consistent with at least borderline peripheral arterial disease , may be up to mild to moderate peripheral arterial disease. He is on Coumadin , INR is therapeutic at 2.2. Plan: OxyIR as needed for pain, stat bilateral arterial duplex, may need to consult vascular surgery. #3 acute on chronic anemia: Reportedly, he does have history of anemia and blood transfusion. Today's hemoglobin is 7.6 g/dL. Patient denies any evidence of active bleeding from body orifices. Plan: Transfuse 1 unit of packed RBCs, iron studies, TIBC, serum ferritin, stool for occult blood. #4 stage I sacral ulcer: Right aspect of the upper anal cleft, does not look to be infected. Plan for wound care and dressing as the wound care nurse. per #4 CAD status post CABG: EKG reviewed, revealed A. fib without acute ischemic changes, rate is controlled. Continue statins, beta blockers and losartan, 2D echocardiogram. #5 chronic atrial fibrillation: Rate is controlled, blood pressure stable. EKG reviewed. Plan to continue Coreg and amiodarone for rate control, continue Coumadin for auscultation, INR is therapeutic. #6 hypothyroidism: Continue levothyroxine. #7 history of stroke: Stable, no acute issues. Continue statins and Coumadin. #8 congestive heart failure: Unclear type, probably systolic. Seems to be controlled, compensated. Plan for 2D echocardiogram, continue Coreg and losartan, hold Lasix for now. #9 stage III chronic kidney disease: His creatinine back and October, was 1.51. Admission creatinine 1.47, today's creatinine is 1.38, stable at baseline. #10 DVT prophylaxis: INR is 2.2. This note was generated with Wizeline dictation software. It may contain incorrect words, spelling, and punctuation that were not noted in checking the note before signing. Code Visit Inpatient E&M: 16679 [facility] L3
--- NOTE | 2017-07-22 09:54 | NURSING ---
Physician requesting medical records from pcp. Pt is A&O x1 at this time. No answer at listed number for /daughter, msg left on vm to please return call.
[2017-07-22 09:59] LABS: Ferritin 39 ng/mL (26-388); Iron 18 ug/dL (65-175); Iron Binding Capacity,Total 356 ug/dL (250-450); PERCENT IRON SATURATION 5.1 % (15.0-55.0)
--- NOTE | 2017-07-22 12:13 | PCA ---
Addendum entered by Bridget Stephenson 07/22/17 12:15: obtained medical records , placed on front of chart Original Note: faxed informed consent for release of medical records to [facility] fax number : [phone]
--- NOTE | 2017-07-22 13:25 | NURSING ---
wound photo: left lateral lower leg
--- NOTE | 2017-07-22 13:25 | NURSING ---
wound photo: right medial lower leg
--- NOTE | 2017-07-22 13:26 | NURSING ---
wound photo: right foot
--- NOTE | 2017-07-22 13:29 | NURSING ---
wound photo: right lateral lower leg
--- NOTE | 2017-07-22 13:29 | NURSING ---
wound photo: right posterior lower leg
--- NOTE | 2017-07-22 13:30 | NURSING ---
wound photo: toes right foot
--- NOTE | 2017-07-22 13:31 | CASEMGMT ---
Tertiary hospitals in-network with [facility]: [facility], [facility], [facility], [facility].
[2017-07-22 15:11] LABS: Bedside Glucose 160 mg/dL (70-110)
[2017-07-22] MEDS: 0.9% NaCl Peripheral Flush Adult/Peds IV (15:12)
--- NOTE | 2017-07-22 16:25 | CHAPLAIN ---
Type of Pastoral Visit _x__ Initial Visit ___ Follow-up Visit ___ On-call Visit ___ General Patient Visit ___ Spiritual Assessment ___ Family Conference ___ Bereavement ___ Rapid Response ___ Code Blue ___ Other (describe below) Pastoral Care Referral From _x__ Patient ___ Family ___ Nurse ___ Physician ___ Civil Drafting Technician ___ Marketing Sales Manager ___ Other (describe below) Sacrament/Intervention ___ Active listening ___ Anointing ___ Anabaptism ___ Bereavement ___ Communion ___ Kalpana exploration ___ ___ Life review _x__ Prayer ___ Reconciliation ___ Sacrament of Sick _x__ Supportive presence ___ Wedding ___ Other (describe below) Pastoral Comments waited in hallway as RN was addressing patient care and doing vitals; pt is loud and verbally demanding of RN; pt demands his coffee and soda now; pt then apologizes to RN; this merchandising lead enters room while RN is finishing; this merchandising lead asks pt how he feels, who he lives with, family information, etc.; pt says that he should be home, lives with family and that he has little grandchildren; pt only answers questions asked of him and does not engage in conversation; pt does not give response when asked if he needs support or anything to help him; pt allows a prayer and turns down his TV at this time;
[2017-07-22 18:15] LABS: Bedside Glucose 153 mg/dL (70-110)
[2017-07-22] MEDS: Haloperidol Lactate 5 MG/ML Vial 1 MG IV (20:16)
--- NOTE | 2017-07-22 20:19 | NURSING ---
pt continues to scream and will not respond to verbal communication. pt will not use call villalobos but just continues to yell out for staff. tim dudley
[2017-07-22] MEDS: Atorvastatin Calcium 20 MG Tablet PO (21:03)
[2017-07-22] MEDS: Tamsulosin HCl 0.4 MG Capsule PO (21:03)
[2017-07-22 21:26] LABS: Bedside Glucose 170 mg/dL (70-110)
[2017-07-23] MEDS: Haloperidol Lactate 5 MG/ML Vial 1 MG IM (00:23)
--- NOTE | 2017-07-23 00:30 | NURSING ---
pt continues to scream and yell. emotional support given. pt yelling for water .pt npo at this time. informed pt 5 times that he cant have anything to drink. pt continues to scream.haldol im given.
[2017-07-23 02:19] VITALS: BP 131/71; PULSE 61; RESP 17; TEMP 36.8; O2SAT 95
[2017-07-23] MEDS: Cefazolin 1 GM/50 ML BAG IV ×3 (05:00→21:35)
[2017-07-23] MEDS: Haloperidol Lactate 5 MG/ML Vial 1 MG IV (05:35)
--- NOTE | 2017-07-23 05:37 | NURSING ---
pT THREATING THE THE NURSING STAFF. PT YELLING. PT SAID HE WAS GOING TO KICK OUR ASS. PT CONTINUES TO YELL UNABLE TO REASON WITH PT. HALDOL GIVEN. NURSE AT BEDSIDE. PT THREATING TO GET OUT OF BED AND HIT THIS NURSE IF HE DOES NOT GET WATER. TOLD PT ABOUT THE NPO FOR US. PT SAID I DONT GIVE A FUCK GET ME SOME WATER. NURSE UNABLE TO LEAVE PT BEDSIDE.
[2017-07-23 07:11] LABS: Absolute Lymphocyte Count 0.69 X10^3/ul (0.83-4.51); Absolute Neutrophil Count 4.9 X10^3/uL (2.0-7.7); Basophil# 0.04 X10^3/uL; Basophil% 0.6 % (0-1); Eosinophil# 0.14 X10^3/uL; Hematocrit 27.2 % (40-54); Hemoglobin 8.1 g/dl (13.0-16.5); Lymphocyte # 0.69 X10^3/ul (4.0); Lymphocyte % 9.7 % (19-41); Mean Corp Hgb Conc 29.8 g/gl (32-36); Mean Corpuscular Hgb 20.1 pg (27.0-32.0); Mean Corpuscular Volume 67.5 fL (80-94); Mean Platelet Vol. 8.2 fl (6.2-12.0); Monocyte# 1.31 X10^3/uL; Monocyte% 18.4 % (0-10); Neutrophil # 4.92 X10^3/uL (2.7-7.7); Neutrophil % 68.9 % (47-70); Platelet Count 173 K/mm3 (150-450); Prothrombin Time (Protime)PT. 22.5 SECONDS (11.7-14.9); RBC Distribution Width CV 22.1 % (11.6-14.6); RBC Distribution Width SD 54.5 fl (35.1-43.9); Red Blood Count 4.03 M/mm3 (4.6-6.2); White Blood Count 7.1 K/mm3 (4.4-11.0)
[2017-07-23 07:16] LABS: Anion Gap 6 (5-15); BUN 18 mg/dL (7-18); BUN/Creat Ratio 16.4 RATIO (10-20); Calcium,Total 7.8 mg/dL (8.5-10.1); Chloride 103 mmol/L (98-107); EST Glomerular Filtration Rate 70 mL/min (>60); Est Glom Filt Rate - Afr Amer 85 mL/min (>60); Estimated Creatinine Clearance 70.58 ml/min; Glucose 92 mg/dL (74-106); Potassium 3.8 mmol/L (3.5-5.1); Sodium Level 135 mmol/L (136-145)
[2017-07-23 07:17] LABS: POSITIVE COUNT NO; POSITIVE DIFFERENTIAL NO
[2017-07-23 07:18] LABS: Differential Indicated SCAN CRITERIA MET; POSITIVE MORPHOLOGY YES
[2017-07-23 07:30] LABS: Anisocytosis 2+; Platelet Estimate ADEQUATE (ADEQ); Polychromasia RARE
[2017-07-23 07:31] LABS: Hypochromasia 3+; Microcytosis 2+; Schistocytes RARE
--- NOTE | 2017-07-23 08:09 | LEAS ---
Arterial Study - Arterial Study Arterial Study: Date of scan 07/22/[address] Lowe History: Patient with arterial insufficiency Interpretation: Right lower extremity with very flattened waveform noted at the ankle on the right on the JAYLENE unable to get a waveform of the posterior tibial the dorsalis pedis is noncompressible and unable to determine an JAYLENE. On the duplex again no flow seen in the posterior tibial very poor monophasic signal noted the dorsalis pedis. Left lower extremity fairly normal waveform noted down at the ankle JAYLENE 1.06 of the posterior tibial 1.30 the dorsalis dorsalis pedis. Both vessels do show biphasic flow. Impression: 1. Evidence of occlusive disease on the right. The very poor waveform and monophasic flow. Unable to determine JAYLENE. Further evaluation as clinically warranted. 2. No evidence of severe occlusive disease on the left with a JAYLENE 1.30 and biphasic flow.
--- NOTE | 2017-07-23 08:12 | LEAS_ITS ---
Arterial Study - Arterial Study Arterial Study: Date of scan 07/22/[address] Lowe History: Patient with arterial insufficiency Interpretation: Right lower extremity with very flattened waveform noted at the ankle on the right on the JAYLENE unable to get a waveform of the posterior tibial the dorsalis pedis is noncompressible and unable to determine an JAYLENE. On the duplex again no flow seen in the posterior tibial very poor monophasic signal noted the dorsalis pedis. Left lower extremity fairly normal waveform noted down at the ankle JAYLENE 1.06 of the posterior tibial 1.30 the dorsalis dorsalis pedis. Both vessels do show biphasic flow. Impression: 1. Evidence of occlusive disease on the right. The very poor waveform and monophasic flow. Unable to determine JAYLENE. Further evaluation as clinically warranted. 2. No evidence of severe occlusive disease on the left with a JAYLENE 1.30 and biphasic flow.
[2017-07-23 09:38] LABS: Partial Thromboplast Time 41.7 Seconds (24.1-36.2)
[2017-07-23 10:39] VITALS: BP 121/75; PULSE 68; RESP 16; TEMP 37; O2SAT 96
[2017-07-23] MEDS: HEPARIN/D5w 25,000 UNITS 25,000 UNITS/250 ML IV.SOLN. 14 UNITS IV (10:41)
[2017-07-23] MEDS: 0.9% NaCl Peripheral Flush Adult/Peds IV (10:47)
[2017-07-23] MEDS: Sertraline 50 MG Tablet PO (10:54)
[2017-07-23] MEDS: Losartan Potassium 25 MG Tablet PO (10:54)
[2017-07-23] MEDS: Amiodarone 200 MG Tablet PO (10:54)
[2017-07-23] MEDS: Carvedilol 12.5 MG Tablet PO ×2 (10:54→21:35)
--- NOTE | 2017-07-23 12:02 | US_ITS ---
STUDY: ABDOMINAL ULTRASOUND REASON FOR EXAM: Male, 72 years old. Distended abdomen. Ascites. Cirrhosis. TECHNIQUE: Transabdominal ultrasound was performed with real-time and static foster scale imaging. TECHNICAL QUALITY: Limited. Examination limited due to the patient?s condition. COMPARISON: None. FINDINGS: Liver: The liver is enlarged and measures 22.1 cm. There is increased echogenicity consistent with fatty infiltration. The bile ducts are within normal limits. There is hepatic color flow. The direction of portal flow is hepatopetal. There is no demonstrated mass lesion. Small amount of free fluid is seen in the perihepatic space. Gallbladder: Normal distended gallbladder. The gallbladder wall is thickened and measures 4.3 mm. There is a negative sonographic Zarate's sign. There is no pericholecystic fluid. There are no gallstones. Sludge is seen within the gallbladder lumen. Common Bile Duct (C.B.D.): The common bile duct measures 4.5 mm. Pancreas: There is nonvisualization of the pancreas due to overlying bowel gas. Spleen: There is splenomegaly. The spleen measures 14.0 cm x 5.1 cm x 5.1 cm. Right Kidney: Normal size of the right kidney. The right kidney measures 11.3 cm x 5.6 x 5.6 cm. Normal renal cortex. The right cortex measures 1.8 cm. There is no demonstrated renal mass or cyst. There is no right hydronephrosis. Left Kidney: Normal size of the left kidney. The left kidney measures 10.1 cm x 5.4 cm x 5.9 cm. Normal renal cortex. The left cortex measures 1.6 cm. There is no demonstrated renal mass or cyst. There is no left hydronephrosis. Aorta: Not well seen. I.V.C.: The IVC is patent. There is no ascites. US/Abdomen Complete IMPRESSION: Hepatosplenomegaly. Small amount of free fluid in the perihepatic space. Thickening of the gallbladder wall. Sludge within the gallbladder lumen. Electronically Signed: Edgard Alejo MD at 12:47 EDT Tel [phone], Service support ,
--- NOTE | 2017-07-23 12:25 | PCM.PROGNOTE ---
Subjective: Chief complaint: Follow-up after admission for bilateral lower extremity pain, redness and ulcer, probable bilateral lower extremity cellulitis, more on the right lower extremity as well as peripheral vascular disease. Patient seen and examined. No acute events overnight. He is a very poor informant and not able to communicate appropriately. He mentioned that right leg pain is getting better. He remained ultimately confused and disoriented. Denied chest pain or shortness of breath. His vitals are stable. - Physical Exam General: Alert, Cooperative, No apparent distress, Disoriented HEENT: Atraumatic, PERRLA, EOMI Oral: Moist Mucosa, No Gingival or Mucosal Lesions/ Ulcerations Neck: Supple, No JVD, Negative Carotid Bruits, Trachea Midline, Thyroid Normal Size and Texture Lungs: Clear to auscultation, No rhonchi, No wheeze, No rales, Diminished Cardiovascular: Regular rate, Regular Rhythm, Normal S1, Normal S2, PMI Normal Abdomen: Bowel Sounds Present, Soft, Non Tender, Non-Distended, No Hepato-splenomegaly Extremities: No clubbing, No cyanosis Skin: - - Bilateral legs: Multiple superficial ulcers, dusky skin, tender, states dermatitis, mild erythema. Lymphatic: No Cervical, Supraclavicular, or Inguinal Adenopathy Neurological: Cranial nerves II-XII grossly intact, Neuro grossly intact Psych/Mental Status: Flat Affect Vital Signs Temp Pulse Resp BP Pulse Ox 98.6 F 68 16 121/75 H 96 07/23/17 10:39 07/23/17 10:39 07/23/17 10:39 07/23/17 10:39 07/23/17 10:39 Oxygen Delivery Method Room Air Intake and Output for Last 24 Hours 07/21/17 07/22/17 07/23/17 23:59 23:59 23:59 Intake Total 4414 / 4414 75 / 75 Output Total 900 / 900 350 / 350 Balance 3514 / 3514 -275 / -275 Microbiology Past 72 Hours 07/21/17 22:20 Urine Culture - Preliminary Urine Catheter - Catheter Gram positive organism 07/22/17 10:15 Gram Stain - Final Wound - Leg, Left Wound Culture - Preliminary Staphylococcus species 07/22/17 Unknown Stool Occult Blood (GOMEZ) - Final Stool Laboratory Tests Past 24 Hrs 07/22/17 07/23/17 07/23/17 09:30 06:48 06:48 WBC 7.1 RBC 4.03 L Hgb 8.1 L Hct 27.2 L MCV 67.5 L MCH 20.1 L MCHC 29.8 L RDW 22.1 H RDW Differential 54.5 H Plt Count 173 MPV 8.2 Immature Gran % (Auto) 0.400 Neut % (Auto) 68.9 Lymph % (Auto) 9.7 L [place] % (Auto) 18.4 H Eos % (Auto) 2.0 Baso % (Auto) 0.6 Absolute Neuts (auto) 4.9 Absolute Lymphs (auto) 0.69 L Total Counted Not Reportable Platelet Estimate ADEQUATE Polychromasia RARE Hypochromasia 3+ Anisocytosis 2+ Microcytosis 2+ Schistocytes RARE PT 22.5 H INR 2.0 APTT Sodium Potassium Chloride Carbon Dioxide Anion Gap BUN Creatinine Estim Creat Clear Calc Est GFR (MDRD) Af Amer Est GFR (MDRD) Non-Af BUN/Creatinine Ratio Glucose Calcium Crossmatch See Detail 07/23/17 07/23/17 06:48 06:48 WBC RBC Hgb Hct MCV MCH MCHC RDW RDW Differential Plt Count MPV Immature Gran % (Auto) Neut % (Auto) Lymph % (Auto) [place] % (Auto) Eos % (Auto) Baso % (Auto) Absolute Neuts (auto) Absolute Lymphs (auto) Total Counted Platelet Estimate Polychromasia Hypochromasia Anisocytosis Microcytosis Schistocytes PT INR APTT 41.7 H Sodium 135 L Potassium 3.8 Chloride 103 Carbon Dioxide 26.0 Anion Gap 6 BUN 18 Creatinine 1.10 Estim Creat Clear Calc 70.58 Est GFR (MDRD) Af Amer 85 Est GFR (MDRD) Non-Af 70 BUN/Creatinine Ratio 16.4 Glucose 92 Calcium 7.8 L Crossmatch POC Glucose 07/22/17 07/22/17 07/22/17 21:08 16:29 11:46 POC Glucose 170 H 153 H 160 H Medical Necessity - Tobacco Use Smoking Status: Former smoker Tobacco Use: Cigarettes Assessment/Plan This is a 72 years old male patient with multiple medical comorbidities presented to the medicine because of bilateral leg pain, redness of both legs and he was found to have multiple nonhealing ulcers on both legs with possible secondary bacterial infection as well as acute on chronic anemia. #1 bilateral lower extremity nonhealing ulcers/probable superimposed secondary bacterial infection/cellulitis: He is on IV cefazolin. His vital signs are stable, remained afebrile. Wound culture revealed Staphylococcus, final is pending. Those ulcers are likely arterial ulcers due to peripheral vascular disease. His MRSA screen was negative. Plan to continue same treatment, dressing as per wound care nurse. #2 peripheral vascular disease: Arterial duplex revealed right leg superficial femoral and perineal arteries occlusion. The same study was read by another physician and revealed flattened waveforms on posterior tibial and dorsalis pedis arteries suggestive of occlusive disease on the right side. This ischemia seemed to be chronic as patient has been having arterial ulcers which seemed to be ischemic ulcers. Plan: Start IV heparin drip, will try to consult vascular surgery and if not, patient will be transferred to tertiary care center for further treatment. #3 acute on chronic iron deficiency anemia: Reportedly, he does have history of anemia and blood transfusion. Today's hemoglobin is 8.1 g/dL. he received 1 unit of packed RBCs. According to his daughter, he had this issue recently and he underwent upper EGD and colonoscopy at [facility] that was unrevealing. Stool for occult blood was negative. Serum iron and iron saturation are very low. Plan: We will start IV iron therapy. #4 stage I sacral ulcer: Right aspect of the upper anal cleft, does not look to be infected. Plan for wound care and dressing as per the wound care nurse. #4 CAD status post CABG: EKG reviewed, revealed A. fib without acute ischemic changes, rate is controlled. Continue statins, beta blockers and losartan, 2D echocardiogram. #5 chronic atrial fibrillation: Rate is controlled, blood pressure stable. EKG reviewed. Plan to continue Coreg and amiodarone for rate control, continue Coumadin for auscultation, INR is therapeutic. #6 hypothyroidism: Continue levothyroxine. #7 history of stroke: Stable, no acute issues. Continue statins and Coumadin. #8 congestive heart failure: Unclear type, probably systolic. Seems to be controlled, compensated. Plan for 2D echocardiogram, continue Coreg and losartan, hold Lasix for now. #9 stage III chronic kidney disease: His creatinine back and October, was 1.51. Admission creatinine 1.47, today's creatinine is 1.10, stable at baseline. #10 DVT prophylaxis: INR is 2. This note was generated with Dragon dictation software. It may contain incorrect words, spelling, and punctuation that were not noted in checking the note before signing.
[2017-07-23 13:14] LABS: Hemoglobin A1c 7.3 % (4.2-6.3)
[2017-07-23 16:00] VITALS: BP 110/67; PULSE 68; RESP 18; TEMP 36.2; O2SAT 97
[2017-07-23 17:33] LABS: Partial Thromboplast Time 48.5 Seconds (24.1-36.2)
[2017-07-23] MEDS: Furosemide 40 MG Tablet PO (17:38)
[2017-07-23 21:30] VITALS: BP 127/80; PULSE 73; RESP 18; TEMP 36.7; O2SAT 97
[2017-07-23] MEDS: Tamsulosin HCl 0.4 MG Capsule PO (21:35)
[2017-07-23] MEDS: Haloperidol 1 MG Tablet PO (21:35)
[2017-07-23] MEDS: Atorvastatin Calcium 20 MG Tablet PO (21:35)
--- NOTE | 2017-07-23 22:10 | NURSING ---
pt frequently yelling out even after staff have been in room multiple times to meet needs, pt has had bath, snacks, repositioned, bed change, toileting, and as soon as staff leave room yells. asked pt not to yell out to use his call light which he uses but then immediately yells. Discussed appropriate behavior with pt multiple times, charge master specialist in to speak with pt also. pt bed exit on, room camera on, medicated by other rn with haldol & door closed will continue to monitor
--- NOTE | 2017-07-23 22:10 | NURSING ---
I had earlier assisted Elizabeth GOLDSTEIN to boost pt up in bed. He had his call light in his hand and he was instructed on how to use the call light and also how to operate his bed for positioning comfort. He was told not to yell out like he had been or we would have to close his door. At 2209, pt again yelled several times until Elizabeth and I responded by entering his room. This nurse advised him that I would call security if I needed to and that he needed to stop yelling because it was disturbing the patients around him. He was told that we would be closing his door and that he needed to use his call light, not yell, to get assistance.
[2017-07-24] VITALS (8 sets, daily range): BP systolic 104–148; BP diastolic 49–68; PULSE 60–78; RESP 16–18; TEMP 36.2–37.2; O2SAT 96–98; BMI 29.5
[2017-07-24] MEDS: Menthol/Lanolin/Calamine/Znox 113 GM Tube 1 APPLIC TOPICAL ×3 (03:10→21:27)
[2017-07-24] MEDS: Acetaminophen 325 MG Tablet 650 MG PO ×3 (03:10→19:42)
[2017-07-24] MEDS: Haloperidol 1 MG Tablet PO ×3 (03:10→19:42)
[2017-07-24] MEDS: Cefazolin 1 GM/50 ML BAG IV ×3 (05:31→21:25)
[2017-07-24] MEDS: Levothyroxine 88 MCG Tablet PO (05:33)
[2017-07-24 06:09] LABS: Absolute Lymphocyte Count 0.69 X10^3/ul (0.83-4.51); Absolute Neutrophil Count 5.3 X10^3/uL (2.0-7.7); Basophil# 0.06 X10^3/uL; Basophil% 0.8 % (0-1); Eosinophils% 2.6 % (0-5); Hematocrit 27.2 % (40-54); Hemoglobin 7.9 g/dl (13.0-16.5); Lymphocyte # 0.69 X10^3/ul (4.0); Lymphocyte % 9.1 % (19-41); Mean Corpuscular Volume 68.9 fL (80-94); Mean Platelet Vol. 8.2 fl (6.2-12.0); Monocyte# 1.26 X10^3/uL; Monocyte% 16.7 % (0-10); Neutrophil # 5.33 X10^3/uL (2.7-7.7); Neutrophil % 70.5 % (47-70); Platelet Count 166 K/mm3 (150-450); RBC Distribution Width CV 22.4 % (11.6-14.6); RBC Distribution Width SD 55.3 fl (35.1-43.9); Red Blood Count 3.95 M/mm3 (4.6-6.2); White Blood Count 7.6 K/mm3 (4.4-11.0)
[2017-07-24 06:10] LABS: Prothrombin Time (Protime)PT. 23.1 SECONDS (11.7-14.9)
[2017-07-24 06:12] LABS: Differential Indicated SCAN CRITERIA MET; POSITIVE COUNT NO; POSITIVE DIFFERENTIAL NO; POSITIVE MORPHOLOGY YES
[2017-07-24 06:54] LABS: Differential Comment SCANNED; Hypochromasia 3+; Polychromasia RARE
[2017-07-24 06:55] LABS: Acanthocytes 2+; Anisocytosis 3+; Target Cells 2+
--- NOTE | 2017-07-24 08:44 | PCM.PROGNOTE ---
Subjective: Chief complaint: Follow-up after admission for bilateral lower extremity pain, redness and ulcer, probable bilateral lower extremity cellulitis, more on the right lower extremity, acute on chronic anemia requiring blood transfusion as well as peripheral vascular disease. Patient seen and examined. No acute events overnight. He reported mild right leg ache, no more pain. Denied chest pain or shortness of breath. Vital signs are stable. - Physical Exam General: Alert, Cooperative, No apparent distress HEENT: Atraumatic, PERRLA, EOMI Oral: Moist Mucosa, No Gingival or Mucosal Lesions/ Ulcerations Neck: Supple, No JVD, Negative Carotid Bruits, Trachea Midline, Thyroid Normal Size and Texture Lungs: Clear to auscultation, No rhonchi, No wheeze, No rales, Diminished Cardiovascular: Regular rate, Regular Rhythm, Normal S1, Normal S2, PMI Normal Abdomen: Bowel Sounds Present, Soft, Non Tender, Non-Distended, No Hepato-splenomegaly Extremities: No clubbing, No cyanosis, - - Bilateral legs: Multiple superficial ulcers, dusky skin, tender, states dermatitis, mild erythema. Skin: No rashes, Ulcer/ Wound Neurological: Cranial nerves II-XII grossly intact, Neuro grossly intact Psych/Mental Status: Normal Affect, Appropriate Vital Signs Temp Pulse Resp BP Pulse Ox 98.0 F 60 16 148/63 H 96 07/24/17 03:07 07/24/17 03:07 07/24/17 03:07 07/24/17 03:07 07/24/17 03:07 Oxygen Delivery Method Room Air Weight: 229 lb 15.074 oz Body Mass Index (BMI) 29.5 Intake and Output for Last 24 Hours 07/22/17 07/23/17 07/24/17 23:59 23:59 23:59 Intake Total 4414 / 4414 1399 / 1399 1751 / 1751 Output Total 900 / 900 1050 / 1050 1300 / 1300 Balance 3514 / 3514 349 / 349 451 / 451 Microbiology Past 72 Hours 07/22/17 10:15 Gram Stain - Final Wound - Leg, Left Wound Culture - Preliminary Staphylococcus aureus Gram negative lou 07/21/17 22:20 Urine Culture - Preliminary Urine Catheter - Catheter Gram positive organism 07/22/17 Unknown Stool Occult Blood (GOMEZ) - Final Stool Laboratory Tests Past 24 Hrs 07/22/17 07/23/17 07/23/17 09:30 06:48 06:48 WBC RBC Hgb Hct MCV MCH MCHC RDW RDW Differential Plt Count MPV Immature Gran % (Auto) Neut % (Auto) Lymph % (Auto) [place] % (Auto) Eos % (Auto) Baso % (Auto) Absolute Neuts (auto) Absolute Lymphs (auto) Total Counted Differential Comment Polychromasia Hypochromasia Anisocytosis Target Cells Acanthocytes (Spur) PT INR APTT 41.7 H Hemoglobin A1c 7.3 H Crossmatch See Detail 07/23/17 07/24/17 07/24/17 16:51 05:32 05:32 WBC 7.6 RBC 3.95 L Hgb 7.9 L Hct 27.2 L MCV 68.9 L MCH 20.0 L MCHC 29.0 L RDW 22.4 H RDW Differential 55.3 H Plt Count 166 MPV 8.2 Immature Gran % (Auto) 0.300 Neut % (Auto) 70.5 H Lymph % (Auto) 9.1 L [place] % (Auto) 16.7 H Eos % (Auto) 2.6 Baso % (Auto) 0.8 Absolute Neuts (auto) 5.3 Absolute Lymphs (auto) 0.69 L Total Counted Not Reportable Differential Comment SCANNED Polychromasia RARE Hypochromasia 3+ Anisocytosis 3+ Target Cells 2+ Acanthocytes (Spur) 2+ PT 23.1 H INR 2.0 APTT 48.5 H Hemoglobin A1c Crossmatch Medical Necessity - Tobacco Use Smoking Status: Former smoker Tobacco Use: Cigarettes Assessment/Plan This is a 72 years old male patient with multiple medical comorbidities presented to the medicine because of bilateral leg pain, redness of both legs and he was found to have multiple nonhealing ulcers on both legs with possible secondary bacterial infection as well as acute on chronic anemia. #1 bilateral lower extremity nonhealing ulcers/probable superimposed secondary bacterial infection/cellulitis: He is on IV cefazolin. His vital signs are stable, remained afebrile. Wound culture revealed MSSA and gram-negative rods. His MRSA screen was negative. Plan to continue same treatment, dressing as per wound care nurse. #2 peripheral vascular disease: Arterial duplex revealed right leg superficial femoral and peroneal arteries occlusion. This is seem to be chronic ischemia. According to Dr. Lowe, patient does have collaterals down to the right foot. Patient is on aspirin and Coumadin, INR is therapeutic. Awaiting vascular surgery evaluation and recommendation. #3 acute on chronic iron deficiency anemia: Reportedly, he does have history of anemia and blood transfusion. Today's hemoglobin is 7.9 g/dL. he received 1 unit of packed RBCs. According to his daughter, he had this issue recently and he underwent upper EGD and colonoscopy at [facility] that was unrevealing. Stool for occult blood was negative. Serum iron and iron saturation are very low received 1 dose of IV iron sucrose. Plan: Start oral iron supplement, transfuse another unit of packed RBCs, repeat CBC tomorrow morning. #4 stage I sacral ulcer: Right aspect of the upper anal cleft, does not look to be infected. Plan for wound care and dressing as per the wound care nurse. #4 CAD status post CABG: EKG reviewed, revealed A. fib without acute ischemic changes, rate is controlled. Continue statins, beta blockers and losartan, 2D echocardiogram. #5 chronic atrial fibrillation: Rate is controlled, blood pressure stable. EKG reviewed. Plan to continue Coreg and amiodarone for rate control, continue Coumadin for anticoagulation, INR is therapeutic. #6 hypothyroidism: Continue levothyroxine. #7 history of stroke: Stable, no acute issues. Continue statins and Coumadin. #8 congestive heart failure: Unclear type, probably systolic. Seems to be controlled, compensated. Plan for 2D echocardiogram, continue Coreg and losartan, hold Lasix for now. #9 stage III chronic kidney disease: His creatinine back and October, was 1.51. Admission creatinine 1.47, yesterday's creatinine is 1.10, stable at baseline. #10 DVT prophylaxis: INR is 2. This note was generated with [employer] dictation software. It may contain incorrect words, spelling, and punctuation that were not noted in checking the note before signing. Code Visit Inpatient E&M: 66702 Subs Hosp L2
[2017-07-24] MEDS: Aspirin 81 MG TAB.CHEW PO (08:58)
[2017-07-24] MEDS: Furosemide 40 MG Tablet PO ×2 (10:38→18:02)
[2017-07-24] MEDS: Amiodarone 200 MG Tablet PO (10:38)
[2017-07-24] MEDS: Sertraline 50 MG Tablet PO (10:38)
[2017-07-24] MEDS: Carvedilol 12.5 MG Tablet PO ×2 (10:39→21:27)
[2017-07-24] MEDS: Losartan Potassium 25 MG Tablet PO (10:39)
--- NOTE | 2017-07-24 14:13 | CASEMGMT ---
RN CM Chart review, interdisciplinary rounds with PT/OT. Recommendation is for [facility] facility on dc. Corie STERN aware and will speak with pt/family re: dc planning. Christina ALEJANDREN RN ACM
--- NOTE | 2017-07-24 14:50 | CASEMGMT ---
Social Work Note SW received referral that SNF placement is needed at discharge for pt. SW in to meet with pt. Pt states that he would be willing to go to a SNF placement at discharge. Pt asked if he could go home first and this worker informed him that he couldn't and that he would go straight from the hospital to the SNF. Pt states understanding. Pt states that he would like a care home that is close to his home. SW printed of SNF list that take pt's insurance. This worker informed pt that this worker will find which SNF is located closest to pt's home. Pt states understanding. Pt denied additional needs or concerns at this time. JARRED placed a call to pt's daughter Saloni. Per Saloni she and her mother feel that placement would not be a good option for pt. Saloni states that she and her mother will have to be at the care home 30/09 with him and that the pt will just leave the facility. Saloni states that it would be better for home health care to be set up for pt as she and her mother is home. JARRED informed Saloni that a nurse from home health will only come out to home about once or twice a week and will teach someone to provide wound care. Saloni states understanding. Saloni states that she and her mother are patient's caregivers and are willing to continue to care for pt. Saloni states that she will be in around 4:00-4:30 this afternoon to see pt. JARRED printed off list of home health care agencies in network with pt's insurance. JARRED updated Charge Nurse Dos Santos of this information. JARRED provided Charge Nurse Raya with list of home health care agencies to provide to pt's family when they arrive at the hospital. JARRED updated ANGELITA Logan of this. JARRED will continue to follow along to assist with discharge planning. Plan: DILLON Espinosa NURSERY TEACHER, INDUSTRI[employer]ERTY APPRAISER
--- NOTE | 2017-07-24 17:26 | PCM.CONS.GEN ---
Problem List (1) Chronic wound of extremity Status: Chronic (2) PAD (peripheral artery disease) Status: Acute Reason for Consult Date of Consultation: 07/24/17 Reason for Consultation: Peripheral arterial disease and bilateral lower extremity wounds History of Present Illness: The patient is a 72 year old M that had a fall about 2 months ago and according to his since that time is pretty much been nonambulatory just sitting and sleeping in the chair. He started to develop wounds related to this had severe edema and cellulitis secondary to venous wounds on bilateral shins and left posterior calf. This is all related to just sitting in the chair not having the legs elevated and being nonambulatory. Patient also with some ischemic lesions on the toes of the right foot has peripheral arterial disease a little bit more severe in the right leg which is monophasic flow noted at the ankle with probably a distal chronic right SFA occlusion. Difficult to get much from the patient with prior to this episode if how bad his claudication symptoms were but it sounds like he was fairly active prior to this fall and the prolonged sitting. He is definitely now deconditioned at this point has pain related to the wounds in these infection. On his ABIs was unable to get a JAYLENE in the right foot the left was biphasic with JAYLENE 1.304 waveform on the right anterior tibial but I get a little bit better signal noted at the bedside. Difficult to get a posterior signal I can get a faint digital signal which is actually encouraging. Although it is faint. Patient also came in anemic this is getting worked up as well. Most of the history and everything is obtained from the is it is difficult to get anything from the patient. Patient did have a CABG ?3 in 2012 at [facility]. Postoperatively developed A. fib and had some type of 2 strokes noted. Also found to have carotid disease and had bilateral carotid stents placed in 2012. He does have known congestive heart failure. Exam Coumadin for the A. fib. Patient quit smoking in his 30s. No diabetes. Hypertension on meds he is on a hyperlipidemia. No history of DVTs. No history of varicose veins. No compression stockings. [] Past Medical History Past Medical History (Chronic Problems): Chronic Problems Stage III chronic kidney disease (Chronic) Chronic atrial fibrillation (Chronic) Status post coronary artery bypass graft (Chronic) Chronic wound of extremity (Chronic) Decubitus ulcer of sacral area (Chronic) Hypothyroidism (Chronic) CVA (cerebral vascular accident) (Chronic) CAD (coronary artery disease) (Chronic) CHF (congestive heart failure) (Chronic) Allergies latex Allergy (Verified 07/21/17 13:21) Rash LEEANN Inhibitors Adverse Reaction (Verified 10/28/16 18:44) Other Home Medications: Ambulatory Orders Medication Instructions Recorded Amiodarone HCl [Amiodarone HCl] 200 mg PO DAILY 10/28/16 Atorvastatin Calcium [Lipitor] 20 mg PO QHS 10/28/16 Carvedilol [Coreg (Beta Kaycee)] 12.5 mg PO BID 10/28/16 Furosemide [Lasix] 40 mg PO DAILY 10/28/16 Levothyroxine [Synthroid] 88 mcg PO DAILY 10/28/16 Losartan Potassium [Losartan 25 mg PO DAILY 10/28/16 Potassium] Potassium Chloride [Klor-Con M10] 10 meq PO DAILY 10/28/16 Tamsulosin HCl [Flomax] 0.4 mg PO QHS 10/28/16 Warfarin [Coumadin (PBKC)] 2.5 mg PO DAILY 10/28/16 Furosemide [Lasix] 20 mg PO DINNER 07/21/17 Sertraline HCl [Zoloft] 50 mg PO DAILY 07/21/17 Surgical History: coronary bypass surgery, total hip arthroplasty Lives: Spouse/ Significant Other Smoking Status: Former smoker Tobacco Use: Cigarettes Alcohol: None Drugs: None - *Family History Maternal History Items: - - patient is confused and unable to get adequate family history from him. Review of Systems Constitutional: Reports: - - Complains of pain in the legs.. Denies: Chills, Fever, Weight Change HEENT: Reports: Difficulty Hearing, -. Denies: Head Aches, Sinus Congestion, Sinus Drainage Cardiovascular: Denies: Chest Pain, Palpitations Respiratory: Denies: Cough, Shortness of breath at rest, Sputum production Gastrointestinal: Denies: Abdominal Pain, Nausea, Vomiting Genitourinary: Denies: Dysuria Musculoskeletal: Reports: - - Bilateral leg pain tender when touching or manipulating the legs some complaints through this Skin: Reports: Wounds - Bilateral calf wounds some lesions onto the right foot Neurological: Reports: - - Difficult to assess at this point Patient Problems: Active and Suspected Problems PAD (peripheral artery disease) (Acute) - Physical Exam General: Alert, Oriented x3 HEENT: Atraumatic, PERRLA, Normocephalic, - - Very poor hearing Oral: Moist Mucosa Neck: Supple, No JVD Lungs: Clear to auscultation Cardiovascular: Irregular Rate Abdomen: Soft, Non Tender Extremities: - - Out edema noted. Bilateral calf to fairchild wounds dressing was removed and reviewed. The edema is significantly improved from prior to coming into the hospital per the . Some ischemic lesions on the dorsum of the toes on the right foot. And a little bit between the toes dressings intact at this point. He has a monophasic dorsalis pedis signal and a faint digital signal is noted on the right. Vital Signs Temp Pulse Resp BP Pulse Ox 98.8 F 68 18 118/68 98 07/24/17 13:09 07/24/17 13:09 07/24/17 13:09 07/24/17 13:09 07/24/17 13:09 Oxygen Delivery Method Room Air Weight: 229 lb 15.074 oz Body Mass Index (BMI) 29.5 Intake and Output for Last 24 Hours 07/22/17 07/23/17 07/24/17 23:59 23:59 23:59 Intake Total 4414 / 4414 1399 / 1399 3146 / 3146 Output Total 900 / 900 1050 / 1050 1300 / 1300 Balance 3514 / 3514 349 / 349 1846 / 1846 Microbiology Past 72 Hours 07/21/17 22:20 Urine Culture - Preliminary Urine Catheter - Catheter Gram Positive Cocci 07/22/17 10:15 Gram Stain - Final Wound - Leg, Left Wound Culture - Preliminary Staphylococcus aureus Gram negative lou 07/22/17 Unknown Stool Occult Blood (GOMEZ) - Final Stool Laboratory Tests Past 24 Hrs 07/22/17 07/22/17 07/23/17 09:30 09:30 16:51 WBC RBC Hgb Hct MCV MCH MCHC RDW RDW Differential Plt Count MPV Immature Gran % (Auto) Neut % (Auto) Lymph % (Auto) [place] % (Auto) Eos % (Auto) Baso % (Auto) Absolute Neuts (auto) Absolute Lymphs (auto) Total Counted Differential Comment Polychromasia Hypochromasia Anisocytosis Target Cells Acanthocytes (Spur) PT INR APTT 48.5 H Crossmatch See Detail See Detail 07/24/17 07/24/17 05:32 05:32 WBC 7.6 RBC 3.95 L Hgb 7.9 L Hct 27.2 L MCV 68.9 L MCH 20.0 L MCHC 29.0 L RDW 22.4 H RDW Differential 55.3 H Plt Count 166 MPV 8.2 Immature Gran % (Auto) 0.300 Neut % (Auto) 70.5 H Lymph % (Auto) 9.1 L [place] % (Auto) 16.7 H Eos % (Auto) 2.6 Baso % (Auto) 0.8 Absolute Neuts (auto) 5.3 Absolute Lymphs (auto) 0.69 L Total Counted Not Reportable Differential Comment SCANNED Polychromasia RARE Hypochromasia 3+ Anisocytosis 3+ Target Cells 2+ Acanthocytes (Spur) 2+ PT 23.1 H INR 2.0 APTT Crossmatch Assessment/Plan Active and Suspected Problems PAD (peripheral artery disease) (Acute) #1. Patient with significant peripheral arterial disease. Wounds on the fairchild most related almost entirely related to being nonambulatory and just sitting in the chair. And from all of the swelling. He has enough circulation to heal these. He does have some ischemic lesions onto the dorsum of the toes and at some point here we will need to do a right leg angiogram with intervention trying to stent through the SFA on the right. This can be done as an outpatient where we will need to bridge his Coumadin at that point. After the intervention will need to have him on Plavix so need to workup fully is anemia of prior to starting this. We will try to do this over the next week or 2 I assume he will need to go to rehab and we can bring him in and do it from there. We will follow I's and inpatient #2. Venous wounds. This is all related to him sitting and sleeping in the chair for the last 2 months. Needs to be seen by physical therapy needs rehab needs to increase his walking and ambulation. Needs bilateral compression therapy and elevation when he is not walking. He is on antibiotics at this point will need long-term antibiotics for these wounds. Would be best served by follow-up with wound center once discharged from here as well.
[2017-07-24] MEDS: Ferrous Sulfate 325 MG Tablet PO (18:02)
[2017-07-24] MEDS: Atorvastatin Calcium 20 MG Tablet PO (21:28)
[2017-07-24] MEDS: Tamsulosin HCl 0.4 MG Capsule PO (21:28)
[2017-07-25] MEDS: Haloperidol 1 MG Tablet PO ×3 (01:18→22:52)
[2017-07-25 01:20] VITALS: BP 111/63; PULSE 63; RESP 18; TEMP 36.5; O2SAT 100
[2017-07-25] MEDS: Cefazolin 1 GM/50 ML BAG IV ×3 (05:13→22:55)
[2017-07-25] MEDS: Levothyroxine 88 MCG Tablet PO (05:14)
[2017-07-25 05:53] LABS: International Normalized Ratio 1.9
[2017-07-25 05:59] LABS: Absolute Lymphocyte Count 0.74 X10^3/ul (0.83-4.51); Absolute Neutrophil Count 5.6 X10^3/uL (2.0-7.7); Basophil# 0.05 X10^3/uL; Basophil% 0.6 % (0-1); Eosinophil# 0.21 X10^3/uL; Eosinophils% 2.7 % (0-5); Hematocrit 29.6 % (40-54); Hemoglobin 8.7 g/dl (13.0-16.5); Lymphocyte # 0.74 X10^3/ul (4.0); Lymphocyte % 9.6 % (19-41); Mean Corp Hgb Conc 29.4 g/gl (32-36); Mean Corpuscular Hgb 20.6 pg (27.0-32.0); Mean Corpuscular Volume 70.1 fL (80-94); Mean Platelet Vol. 8.6 fl (6.2-12.0); Monocyte% 14.2 % (0-10); Neutrophil # 5.59 X10^3/uL (2.7-7.7); Neutrophil % 72.3 % (47-70); Platelet Count 167 K/mm3 (150-450); RBC Distribution Width CV 22.7 % (11.6-14.6); RBC Distribution Width SD 56.5 fl (35.1-43.9); Red Blood Count 4.22 M/mm3 (4.6-6.2); White Blood Count 7.7 K/mm3 (4.4-11.0)
[2017-07-25 06:02] LABS: Differential Indicated SCAN CRITERIA MET; POSITIVE COUNT NO; POSITIVE DIFFERENTIAL NO; POSITIVE MORPHOLOGY YES
[2017-07-25 06:08] LABS: Anion Gap 9 (5-15); BUN 15 mg/dL (7-18); BUN/Creat Ratio 16.3 RATIO (10-20); Calcium,Total 7.5 mg/dL (8.5-10.1); Chloride 98 mmol/L (98-107); Creatinine, Serum 0.92 mg/dL (0.70-1.30); EST Glomerular Filtration Rate 86 mL/min (>60); Est Glom Filt Rate - Afr Amer 104 mL/min (>60); Estimated Creatinine Clearance 84.38 ml/min; Glucose 115 mg/dL (74-106); Potassium 3.6 mmol/L (3.5-5.1); Sodium Level 132 mmol/L (136-145)
[2017-07-25 06:38] LABS: Anisocytosis 1+; Crenated RBC 1+; Differential Comment SCANNED; Hypochromasia 1+; Polychromasia RARE
[2017-07-25 06:39] LABS: Schistocytes 1+
--- NOTE | 2017-07-25 07:55 | PN_ITS ---
Patient Problems: Active and Suspected Problems PAD (peripheral artery disease) (Acute) Subjective: Chief complaint: Follow-up after admission for bilateral lower extremity pain, redness and ulcer, probable bilateral lower extremity cellulitis, more on the right lower extremity, acute on chronic anemia requiring blood transfusion as well as peripheral vascular disease. Patient seen and examined. No acute events overnight. He denies any significant complaints. When he is asked about symptoms, he is respond by irrelevant requests. His vital signs are stable. - Physical Exam General: Alert, Cooperative, No apparent distress HEENT: Atraumatic, PERRLA, EOMI Oral: Moist Mucosa, No Gingival or Mucosal Lesions/ Ulcerations Neck: Supple, No JVD, Negative Carotid Bruits, Trachea Midline, Thyroid Normal Size and Texture Lungs: Clear to auscultation, No rhonchi, No wheeze, No rales, Diminished Cardiovascular: Regular rate, Regular Rhythm, Normal S1, Normal S2, PMI Normal Abdomen: Bowel Sounds Present, Soft, Non Tender, Non-Distended, No Hepato- splenomegaly Extremities: No clubbing, No cyanosis, Edema, - - lateral legs: Multiple superficial ulcers, dusky skin, tender, states dermatitis, mild erythema. Skin: No rashes, Ulcer/ Wound Lymphatic: No Cervical, Supraclavicular, or Inguinal Adenopathy Neurological: Cranial nerves II-XII grossly intact, Neuro grossly intact Psych/Mental Status: Flat Affect Vital Signs Temp Pulse Resp BP Pulse Ox 97.7 F L 63 18 111/63 100 07/25/17 01:20 07/25/17 01:20 07/25/17 01:20 07/25/17 01:20 07/25/17 01:20 Oxygen Delivery Method Room Air Weight: 229 lb 15.074 oz Body Mass Index (BMI) 29.5 Intake and Output for Last 24 Hours 07/23/17 07/24/17 07/25/17 23:59 23:59 23:59 Intake Total 1399 / 1399 4296 / 4296 1246 / 1246 Output Total 1050 / 1050 1450 / 1450 1400 / 1400 Balance 349 / 349 2846 / 2846 -154 / -154 Microbiology Past 72 Hours 07/21/17 22:20 Urine Culture - Preliminary Urine Catheter - Catheter Gram Positive Cocci 07/22/17 10:15 Gram Stain - Final Wound - Leg, Left Wound Culture - Preliminary Staphylococcus aureus Gram negative lou 07/22/17 Unknown Stool Occult Blood (GOMEZ) - Final Stool Laboratory Tests Past 24 Hrs 07/22/17 07/25/17 07/25/17 09:30 05:18 05:18 WBC 7.7 RBC 4.22 L Hgb 8.7 L Hct 29.6 L MCV 70.1 L MCH 20.6 L MCHC 29.4 L RDW 22.7 H RDW Differential 56.5 H Plt Count 167 MPV 8.6 Immature Gran % (Auto) 0.600 Neut % (Auto) 72.3 H Lymph % (Auto) 9.6 L [place] % (Auto) 14.2 H Eos % (Auto) 2.7 Baso % (Auto) 0.6 Absolute Neuts (auto) 5.6 Absolute Lymphs (auto) 0.74 L Total Counted Not Reportable Differential Comment SCANNED RBC Morphology 1+ Polychromasia RARE Hypochromasia 1+ Anisocytosis 1+ Schistocytes 1+ PT INR Sodium 132 L Potassium 3.6 Chloride 98 Carbon Dioxide 25.0 Anion Gap 9 BUN 15 Creatinine 0.92 Estim Creat Clear Calc 84.38 Est GFR (MDRD) Af Amer 104 Est GFR (MDRD) Non-Af 86 BUN/Creatinine Ratio 16.3 Glucose 115 H Calcium 7.5 L Crossmatch See Detail 07/25/17 05:18 WBC RBC Hgb Hct MCV MCH MCHC RDW RDW Differential Plt Count MPV Immature Gran % (Auto) Neut % (Auto) Lymph % (Auto) [place] % (Auto) Eos % (Auto) Baso % (Auto) Absolute Neuts (auto) Absolute Lymphs (auto) Total Counted Differential Comment RBC Morphology Polychromasia Hypochromasia Anisocytosis Schistocytes PT 22.0 H INR 1.9 Sodium Potassium Chloride Carbon Dioxide Anion Gap BUN Creatinine Estim Creat Clear Calc Est GFR (MDRD) Af Amer Est GFR (MDRD) Non-Af BUN/Creatinine Ratio Glucose Calcium Crossmatch Medical Necessity - Tobacco Use Smoking Status: Former smoker Tobacco Use: Cigarettes Assessment/Plan Active and Suspected Problems PAD (peripheral artery disease) (Acute) This is a 72 years old male patient with multiple medical comorbidities presented to the medicine because of bilateral leg pain, redness of both legs and he was found to have multiple nonhealing ulcers on both legs with possible secondary bacterial infection as well as acute on chronic anemia. #1 bilateral lower extremity nonhealing ulcers/probable superimposed secondary bacterial infection/cellulitis: He is on IV cefazolin. His vital signs are stable, remained afebrile. Wound culture revealed MSSA and gram-negative rods, final result is pending. His MRSA screen was negative. Plan to continue same treatment. Patient will need placement to retirement facility. #2 peripheral vascular disease: Arterial duplex revealed right superficial femoral and peroneal arteries occlusion. This is seem to be chronic ischemia. He is on aspirin and Coumadin, INR is therapeutic. Vascular surgery consulted and recommended bilateral extremity angiography and possible stenting as outpatient in the near future. #3 acute on chronic iron deficiency anemia: Reportedly, he does have history of anemia and blood transfusion. Today's hemoglobin is 8.7 g/dL. he received 1 unit of packed RBCs. According to his daughter, he had this issue recently and he underwent upper EGD and colonoscopy at [facility] that was unrevealing. Stool for occult blood was negative. Serum iron and iron saturation are very low received 1 dose of IV iron sucrose, now on oral iron supplement. #4 stage I sacral ulcer: Right aspect of the upper anal cleft, does not look to be infected. Plan for wound care and dressing as per the wound care nurse. #4 CAD status post CABG: EKG reviewed, revealed A. fib without acute ischemic changes, rate is controlled. Continue statins, beta blockers and losartan, 2D echocardiogram. #5 chronic atrial fibrillation: Rate is controlled, blood pressure stable. EKG reviewed. Plan to continue Coreg and amiodarone for rate control, continue Coumadin for anticoagulation, INR is therapeutic. #6 hypothyroidism: Continue levothyroxine. #7 history of stroke: Stable, no acute issues. Continue statins and Coumadin. #8 congestive heart failure: Unclear type, probably systolic. Seems to be controlled, compensated. Plan for 2D echocardiogram, continue Coreg and losartan, hold Lasix for now. #9 stage III chronic kidney disease: His creatinine back and October, was 1.51. Admission creatinine 1.47, today's creatinine is 0.92, stable at baseline. #10 DVT prophylaxis: INR is 1.9. This note was generated with [employer] software. It may contain incorrect words, spelling, and punctuation that were not noted in checking the note before signing.
[2017-07-25 08:30] VITALS: BP 112/60; PULSE 60; RESP 18; TEMP 37.1; O2SAT 100
[2017-07-25] MEDS: Ferrous Sulfate 325 MG Tablet PO ×2 (08:57→16:45)
[2017-07-25] MEDS: Aspirin 81 MG TAB.CHEW PO (08:57)
[2017-07-25] MEDS: Sertraline 50 MG Tablet PO (08:58)
[2017-07-25] MEDS: Carvedilol 12.5 MG Tablet PO ×2 (08:58→22:52)
[2017-07-25] MEDS: Losartan Potassium 25 MG Tablet PO (08:58)
[2017-07-25] MEDS: Amiodarone 200 MG Tablet PO (08:58)
[2017-07-25] MEDS: Furosemide 40 MG Tablet PO ×2 (08:58→18:18)
[2017-07-25] MEDS: Menthol/Lanolin/Calamine/Znox 113 GM Tube 1 APPLIC TOPICAL ×2 (09:01→22:53)
--- NOTE | 2017-07-25 10:05 | CASEMGMT ---
Social Work Note Charge Nurse Raya updated this worker that pt's family is now thinking placement for pt. SW called pt's and daughter and left a message asking to call this worker back with facilities. SW provided verbal list of facilities in [place], [place] that are in network with pt's insurance. JARRED updated Dr. Segovia that pt's family is now thinking placement and pre-cert will be required. SW waiting for call back from pt's family. SW will continue to follow along to assist with discharge planning. Plan: SNF placement Corie Espinosa PADDLE DYEING MACHINE OPERATOR, M[employer] MANAGER
--- NOTE | 2017-07-25 10:21 | CASEMGMT ---
Addendum entered by Corie Espinosa 07/25/17 12:02: SW placed a call to Bren at [facility] and left her a message to inform her of referral and to ask if she is able to accept pt. SW waiting for call back from Bren at [place]. Original Note: Addendum entered by Corie Espinosa 07/25/17 11:17: SW received call from pt's daughter Saloni. Saloni states that they would like to try [facility] for placement. SW faxed referral to [facility]. Plan: [facility] pending pre-cert Original Note: Social Work Note SW received phone call from pt's daughter Saloni. SW provided Saloni with verbal list of SNF in [facility] and [place]. Saloni states that she will talk to her mother and call this worker back regarding placement options. SW waiting for call back from pt's daughter Saloni. SW will continue to follow to assist with discharge planning. Plan: SNF placement Corie Espinosa TUBER MACHINE OPERATOR HELPER, VISUAL LEAD
--- NOTE | 2017-07-25 12:23 | CASEMGMT ---
Social Work Note SW received call from Bren at [facility] stating that she received referral and that she will review it and will give this worker a call back. SW will continue to follow along and assist with discharge planning. Plan: [facility] pending acceptance Corie Espinosa GEOPHYSICAL LABORATORY CHIEF, DIESEL PLANT OPERATOR
[2017-07-25] MEDS: Acetaminophen 325 MG Tablet 650 MG PO (13:42)
--- NOTE | 2017-07-25 15:35 | CASEMGMT ---
Addendum entered by Corie Espinosa 07/25/17 15:50: This worker called pt's insurance company to get list of in network facilities for pt. Per Soniya in network facilities for pt are [facility] [place] [place], [facility], [facility], and [facility]. SW will follow up with pt's family on Friday to decide which placement they want referral sent to. Original Note: Social Work Note JARRED called Bren at [facility] and Bren states that they are unable to verify pt's insurance plan and because of that they are unable to accept pt. JARRED placed a call to pt's daughter Saloni to update her of this. Per Saloni she is unsure of other facilities to try and that she has heard bad things about the other facilities in [place]. Saloni states that she and her mom will have to discuss what other facilities they would like to try as at this time they are not sure. JARRED encouraged Saloni to look into facilities they might be interested in and possible visit some this weekend. Saloni thanked this worker for calling. JARRED will continue to follow along to assist with discharge planning. Plan: SNF placement pending accepting facility Corie Espinosa INTERIOR DESIGN PROGRAM CHAIR, SERVICE CAR OPERATOR
--- NOTE | 2017-07-25 16:01 | CASEMGMT ---
Social Work Note JARRED placed call to pt's daughter Saloni and updated her that [facility] is in network with pt's insurance. Per earlier conversation with Saloni she had mentioned [facility] as a possible choice and they weren't listed as an in network facility. When this worker spoke with Soniya from Customer Service with pt's insurance she did list them as an in network facility. Per Saloni she would like to try [facility]. JARRED faxed referral to Kathleen at [facility]. JARRED will follow up with Kathleen on Friday to see if she is able to accept pt. JARRED will continue to follow to assist with discharge planning. Plan: [facility] pending acceptance Corie Espinosa BAR STAFF, GORE CUTTER
[2017-07-25 16:43] VITALS: BP 111/62; PULSE 59; RESP 18; TEMP 36.6; O2SAT 100
[2017-07-25 22:50] VITALS: BP 120/64; PULSE 61; RESP 18; TEMP 37.2; O2SAT 98
[2017-07-25] MEDS: Atorvastatin Calcium 20 MG Tablet PO (22:52)
[2017-07-25] MEDS: Tamsulosin HCl 0.4 MG Capsule PO (22:52)
[2017-07-25 22:59] VITALS: PULSE 61; RESP 18; O2SAT 98
[2017-07-26 04:00] VITALS: BP 116/69; PULSE 61; RESP 18; TEMP 37; O2SAT 99
[2017-07-26 04:05] VITALS: PULSE 61
[2017-07-26] MEDS: Levothyroxine 88 MCG Tablet PO (06:34)
[2017-07-26] MEDS: Cefazolin 1 GM/50 ML BAG IV ×3 (06:34→21:54)
[2017-07-26 07:17] LABS: Hematocrit 29.2 % (40-54); Hemoglobin 8.8 g/dl (13.0-16.5)
[2017-07-26 07:25] LABS: International Normalized Ratio 1.8; Prothrombin Time (Protime)PT. 21.3 SECONDS (11.7-14.9)
[2017-07-26] MEDS: Ferrous Sulfate 325 MG Tablet PO ×2 (09:27→18:40)
[2017-07-26] MEDS: Carvedilol 12.5 MG Tablet PO ×2 (09:27→21:54)
[2017-07-26] MEDS: Aspirin 81 MG TAB.CHEW PO (09:27)
[2017-07-26] MEDS: Losartan Potassium 25 MG Tablet PO (09:28)
[2017-07-26] MEDS: Furosemide 40 MG Tablet PO (09:28)
[2017-07-26] MEDS: Sertraline 50 MG Tablet PO (09:28)
[2017-07-26] MEDS: Amiodarone 200 MG Tablet PO (09:29)
[2017-07-26] MEDS: Acetaminophen 325 MG Tablet 650 MG PO (09:29)
[2017-07-26 09:33] VITALS: BP 113/82; PULSE 58; RESP 18; TEMP 36.8; O2SAT 97
--- NOTE | 2017-07-26 09:39 | NURSING ---
Duoderm applied to Rt buttock and rt upper thigh to backside. Summer was caked on coccyx and groin. not needed. Pt more in need nystatin powder for groin instead of summer and duoderm for open area on coccyx.
--- NOTE | 2017-07-26 16:18 | PN_ITS ---
Patient Problems: Active and Suspected Problems PAD (peripheral artery disease) (Acute) Subjective: The patient is a 72-year-old male with a history of coronary artery disease, CABG, CVA, dyslipidemia, chronic congestive heart failure, atrial fibrillation, hypothyroidism, chronic anticoagulation with warfarin and BPH who has in the past had non-healing wounds on his legs secondary to a sedentary lifestyle sitting in a chair with his legs dependent. He is known to be non-complaint per the H&P. He went to his PCP's office and was reportedly hypotensive and was sent to the Ed at [facility] on 07/21/17. Vital signs at presentation to the emergency room were temperature 96.9, pulse rate 80, blood pressure 125/53, respiratory rate 20 and he was 93% saturated on room air. There has been no hypotension throughout the duration of his hospital stay. White blood cell count at admission was 8.6 with 76% neutrophils. Hemoglobin was 8.3 with an MCV of 66.6 and an RDW of 21.6. ELytes were within normal limits. There was hypochromasia and anisocytosis. INR was therapeutic at 2.1. Sodium was low at 133 and the BUN was 21 with a creatinine of 1.47. Creatinine in October 2016 was 1.51. Iron studies were done secondary to anemia with microcytosis and showed a low serum iron of 18 with a iron saturation of 5.1% and a TIBC of 356. The ferritin was 39. Alk phos was mildly increased to 200 but the remainder of the LFTs were unremarkable. He was admitted to the hospital with cellulitis and started on ancef. There was a concern given his hx of stroke and CABG and smoking that he may have PVD. JAYLENE's were ordered and showed evidence of occlusive disease on the right with poor waveform and monophasic flow. There was no evidence of severe occlusive disease on the left with an JAYLENE of 1.3 and biphasic flow. He was seen in consultation by Dr. Lowe who feels he has adequate circulation to heal the venous stasis ulcers he has on his lower extremities currently. Plans on bringing the patient back to the hospital at some point to have a right leg angiogram with intervention trying to stent through the superficial femoral artery on the right. He will need to be on Plavix post stenting so will need a workup to determine the etiology of iron deficiency anemia. We are awaiting pre-cert from the insurance company for transfer to an SNF for wound care prior to returning home. - Physical Exam General: Alert, Cooperative, No apparent distress, Well developed, Well nourished, - - poor memory HEENT: Atraumatic, PERRLA, EOMI, - - [place] Oral: Moist Mucosa, No Gingival or Mucosal Lesions/ Ulcerations Neck: No JVD, Negative Carotid Bruits, No Nuchal Rigidity, Trachea Midline Lungs: Clear to auscultation, No rhonchi, No wheeze, No rales, Diminished Cardiovascular: Regular rate, Regular Rhythm, Normal S1, Normal S2, No murmurs, No rub noted, No Gallop Abdomen: Bowel Sounds Present, Soft, Distended - with pitting edema in the flanks....tells me that he has not had a beer for 18 months. Extremities: No cyanosis, No edema, - - wounds had just been dressed so I will examine in the AM Skin: No rashes, Ulcer/ Wound - BL LE's Musculoskeletal: No Muscle Wasting Neurological: Facial Droop - on the right - mild Psych/Mental Status: Appropriate - pleasant Vital Signs Temp Pulse Resp BP Pulse Ox 98.3 F 58 L 18 113/82 H 97 07/26/17 09:33 07/26/17 09:33 07/26/17 09:33 07/26/17 09:33 07/26/17 09:33 Oxygen Delivery Method Room Air Weight: 229 lb 15.074 oz Body Mass Index (BMI) 29.5 Intake and Output for Last 24 Hours 07/24/17 07/25/17 07/26/17 23:59 23:59 23:59 Intake Total 4296 / 4296 3716 / 3716 1108 / 1108 Output Total 1450 / 1450 1900 / 1900 1400 / 1400 Balance 2846 / 2846 1816 / 1816 -292 / -292 Microbiology Past 72 Hours 07/22/17 10:15 Gram Stain - Final Wound - Leg, Left Wound Culture - Final Staphylococcus aureus Serratia liquefaciens group 07/21/17 22:20 Urine Culture - Final Urine Catheter - Catheter Staphylococcus aureus Corynebacterium minutissimum Laboratory Tests Past 24 Hrs 07/26/17 07/26/17 06:45 06:45 Hgb 8.8 L Hct 29.2 L PT 21.3 H INR 1.8 Medical Necessity - Tobacco Use Smoking Status: Former smoker Tobacco Use: Cigarettes Assessment/Plan Active and Suspected Problems PAD (peripheral artery disease) (Acute) Impressions 1. venous stasis ulcers of BL LE's with suspected cellulitis of the LE's -due to methicillin sensitive staph aureus and Serratia liquefaciens group 2. PVD of the right LE 3. Enlarged liver with fatty infiltration and a small amount of fluid in the perihepatic space - no ascites 4. GB sludge with a thickened GB wall 5. splenomegaly 6. Hypothyroidism 7. Anxiety/depression 8. BPH 9. Chronic anticoagulation with warfarin with subtherapeutic INR currently 10. Iron deficiency anemia -has been transfused with 1 unit of packed red blood cells in the hospital 11. Stage I decubitus ulcer cephalad portion of the anal cleft 12. Chronic atrial fibrillation 13. History of CVA 14. Chronic renal failure stage III 15. Ischemic cardiomyopathy with moderate concentric left ventricular hypertrophy with a moderately dilated left ventricle and a 25% ejection fraction with several wall motion abnormalities. 16. Severe dilated right ventricle with an estimated right ventricular systolic pressure of 56-consistent with moderate pulmonary hypertension 17. Mild to moderate aortic stenosis 18. Coronary artery disease with history of CABG 19. Hyperglycemia-check a hemoglobin A1c Stool is Hemoccult negative. He has both hepatomegaly and splenomegaly - will check an LDH and bilirubin to exclude hemolysis as an etiology of the iron deficiency Will need to query the family when his last colonoscopy was. supplement the iron He will need an outpatient PSG and referral to pulmonary medicine for workup and treatment of pulmonary hypertension..... This may be the etiology of lower extremity edema and pitting in the flanks The fluid balance is + 8,233 since admission - needs to be diuresed.....PO Lasix is not doing it...will change to IV. Recheck the lab in the AM Increase the warfarin to get the INR up to greater than 2. Examine wounds in the AM with the dressing change Code Visit Inpatient E&M: 34511 [facility] Hosp L3
[2017-07-26] MEDS: Furosemide 40 MG/4 ML Vial IV (18:33)
[2017-07-26] MEDS: 0.9% NaCl Peripheral Flush Adult/Peds IV (18:34)
[2017-07-26 19:50] VITALS: BP 131/76; PULSE 50; RESP 20; TEMP 36.5; O2SAT 92
[2017-07-26 21:49] VITALS: BP 144/75; PULSE 64
[2017-07-26] MEDS: Menthol/Lanolin/Calamine/Znox 113 GM Tube 1 APPLIC TOPICAL (21:54)
[2017-07-26] MEDS: Tamsulosin HCl 0.4 MG Capsule PO (21:55)
[2017-07-26] MEDS: Atorvastatin Calcium 20 MG Tablet PO (21:55)
[2017-07-27] MEDS: Acetaminophen 325 MG Tablet 650 MG PO (00:01)
[2017-07-27 01:50] VITALS: BP 117/61; PULSE 55; RESP 20; TEMP 36.6; O2SAT 95
[2017-07-27] MEDS: Levothyroxine 88 MCG Tablet PO (07:02)
[2017-07-27] MEDS: Cefazolin 1 GM/50 ML BAG IV ×3 (07:02→21:47)
[2017-07-27] MEDS: 0.9% NaCl Peripheral Flush Adult/Peds IV ×7 (07:03→22:07)
[2017-07-27 07:29] LABS: Absolute Lymphocyte Count 0.76 X10^3/ul (0.83-4.51); Absolute Neutrophil Count 6.6 X10^3/uL (2.0-7.7); Basophil# 0.05 X10^3/uL; Basophil% 0.6 % (0-1); Eosinophil# 0.15 X10^3/uL; Eosinophils% 1.7 % (0-5); Hematocrit 30.1 % (40-54); Hemoglobin 8.9 g/dl (13.0-16.5); Immature Platelet Fraction 1.8 % (1.0-7.9); Lymphocyte # 0.76 X10^3/ul (4.0); Lymphocyte % 8.6 % (19-41); Mean Corp Hgb Conc 29.6 g/gl (32-36); Mean Corpuscular Hgb 21.1 pg (27.0-32.0); Mean Corpuscular Volume 71.3 fL (80-94); Mean Platelet Vol. 7.9 fl (6.2-12.0); Monocyte# 1.31 X10^3/uL; Monocyte% 14.8 % (0-10); Neutrophil # 6.59 X10^3/uL (2.7-7.7); Neutrophil % 74.1 % (47-70); Platelet Count 145 K/mm3 (150-450); RBC Distribution Width CV 24.7 % (11.6-14.6); RBC Distribution Width SD 58.2 fl (35.1-43.9); Red Blood Count 4.22 M/mm3 (4.6-6.2); Reticulocyte Count 1.73 % (0.5-1.5); White Blood Count 8.9 K/mm3 (4.4-11.0)
[2017-07-27 07:31] LABS: Differential Indicated SCAN CRITERIA MET; International Normalized Ratio 1.9; POSITIVE COUNT NO; POSITIVE DIFFERENTIAL NO; POSITIVE MORPHOLOGY YES
[2017-07-27 07:50] LABS: Anisocytosis 3+
[2017-07-27 07:51] LABS: Crenated RBC 1+
[2017-07-27 07:52] LABS: Hypochromasia 2+
[2017-07-27 07:54] LABS: BUN 15 mg/dL (7-18); Creatinine, Serum 0.88 mg/dL (0.70-1.30); EST Glomerular Filtration Rate 91 mL/min (>60); Estimated Creatinine Clearance 88.22 ml/min; Glucose 95 mg/dL (74-106)
[2017-07-27 07:55] LABS: ALB/GLOB Ratio 0.5 RATIO (0.9-2.4); AST(SGOT) 35 U/L (15-37); Alanine Aminotransfer ALT/SGPT 24 U/L (16-61); Albumin, Serum 2.3 g/dL (3.2-5.0); Alkaline Phosphatase 276 U/L (45-117); Anion Gap 7 (5-15); BUN/Creat Ratio 17.1 RATIO (10-20); Calcium,Total 7.3 mg/dL (8.5-10.1); Chloride 103 mmol/L (98-107); Est Glom Filt Rate - Afr Amer 110 mL/min (>60); Globulin 4.2 g/dL (2.2-4.2); LDH 213 U/L (87-241); Phosphorus 2.2 mg/dL (2.5-4.9); Potassium 3.5 mmol/L (3.5-5.1); Protein, Total 6.5 g/dL (6.4-8.2); Sodium Level 138 mmol/L (136-145)
[2017-07-27 08:48] VITALS: BP 121/73; PULSE 59; RESP 18; TEMP 36.3; O2SAT 97
[2017-07-27] MEDS: Furosemide 40 MG/4 ML Vial IV ×2 (09:10→19:31)
[2017-07-27] MEDS: Ferrous Sulfate 325 MG Tablet PO ×2 (09:13→16:31)
[2017-07-27] MEDS: Carvedilol 12.5 MG Tablet PO ×2 (09:13→21:47)
[2017-07-27] MEDS: Menthol/Lanolin/Calamine/Znox 113 GM Tube 1 APPLIC TOPICAL ×2 (09:14→21:47)
[2017-07-27] MEDS: Amiodarone 200 MG Tablet PO (09:15)
[2017-07-27] MEDS: Losartan Potassium 25 MG Tablet PO (09:15)
[2017-07-27] MEDS: Aspirin 81 MG TAB.CHEW PO (09:15)
[2017-07-27] MEDS: Sertraline 50 MG Tablet PO (09:16)
[2017-07-27 09:53] LABS: T4 Free Direct 1.19 ng/dL (0.76-1.46)
[2017-07-27] MEDS: Nystatin Ointment 1 APPLIC TOPICAL ×2 (12:56→21:48)
[2017-07-27] MEDS: Morphine 4 MG/ML Syringe 2 MG IV (13:13)
--- NOTE | 2017-07-27 14:56 | NURSING ---
Looked up compatibility for Potassium Phosphate and Cefazolin. There is no information so this nurse stopped Potassium Phosphate and flushed Iv with 10ml of NS. New Primary line added and Cefazolin started. Will flush and restart Potassium Phosphate when done.
--- NOTE | 2017-07-27 16:13 | NURSING ---
pt screaming, yelling more then normal. Wants water despite water being given. My God Damn mouth is dry. Refusing Green mouth swab. Pt is on Fluid Restriction. pt trying to take off Bandages off his foot. Threatening to go home. Pt is unable to calm down. This nurse gave Haldol Iv, tried to attempt to put Telemonitor but pt gets more agitated.
[2017-07-27] MEDS: Haloperidol Lactate 5 MG/ML Vial 1 MG IV (16:26)
[2017-07-27 16:29] VITALS: BP 118/69; PULSE 63; RESP 20; TEMP 36.8; O2SAT 99
--- NOTE | 2017-07-27 18:27 | PCM.PROGNOTE ---
Patient Problems: Active and Suspected Problems PAD (peripheral artery disease) (Acute) Subjective: All events the past 24 hours of been reviewed. Remains afebrile. Vital signs are stable. He is 95-99% saturated on room air. Good increase in the urine output with IV Lasix 40 mg twice daily. All lab was personally reviewed. Hemoglobin is stable at 8.9. White blood cell count is within normal limits and the differential is unremarkable. INR is 1.9 today. Dosage was increased on 07/26/2017. Hyponatremia has resolved and the sodium is 138 today. BUN and creatinine are 15 and 0.88 respectively. TSH is increased at 10.6 but the free T4 is normal at 1.19. LFTs are unremarkable with the exception of the alkaline phosphatase that is elevated at 276 and this is likely secondary to gangrene of the left second toe and right second toe. Phosphorus is low at 2.2. He is complaining about the fluid restriction. I examined him with the dressing change this AM and he is having considerable pain in the RLE with dressing changes. Objective: - Physical Exam General: Alert, Cooperative, No apparent distress, Well developed, Well nourished, - - poor memory.. HEENT: Atraumatic, PERRLA, EOMI, - - [place]. He is always yelling out from his room. Oral: Moist Mucosa, No Gingival or Mucosal Lesions/ Ulcerations Neck: No JVD, Negative Carotid Bruits, No Nuchal Rigidity, Trachea Midline Lungs: Clear to auscultation, No rhonchi, No wheeze, No rales, Diminished Cardiovascular: Regular rate, Regular Rhythm, Normal S1, Normal S2, No murmurs, No rub noted, No Gallop Abdomen: Bowel Sounds Present, Soft, Distended - with pitting edema in the flanks....tells me that he has not had a beer for 18 months. Extremities: No cyanosis, No edema, Skin: No rashes, Ulcer/ Wound - BL LE's Musculoskeletal: No Muscle Wasting Neurological: Facial Droop - on the right - mild Psych/Mental Status: Appropriate - pleasant There are extensive venous stasis ulcers of the R>L LE's. The wound bases are pale and yellow and they are also a few wounds on the LLE that have dark adherent eschar......the wounds extend up to the tibial plateau. There is poor capillary refill and the R foot blanches white with elevation. The second toe on the right foot is dry and will soon likely auto amputate. There is a dry area of gangrene on the right second toe for the proximal interphalangeal joint on the dorsum of the foot. The RLE is not cold to the touch and there is no cyanosis - Physical Exam Vital Signs Temp Pulse Resp BP Pulse Ox 98.2 F 63 20 H 118/69 99 07/27/17 16:29 07/27/17 16:29 07/27/17 16:29 07/27/17 16:29 07/27/17 16:29 Oxygen Delivery Method Room Air Weight: 236 lb Body Mass Index (BMI) 29.5 Intake and Output for Last 24 Hours 07/25/17 07/26/17 07/27/17 23:59 23:59 23:59 Intake Total 3716 / 3716 2598 / 2598 2084 / 2084 Output Total 1900 / 1900 2100 / 2100 3100 / 3100 Balance 1816 / 1816 498 / 498 -1016 / -1016 Microbiology Past 72 Hours 07/22/17 10:15 Gram Stain - Final Wound - Leg, Left Wound Culture - Final Staphylococcus aureus Serratia liquefaciens group 07/21/17 22:20 Urine Culture - Final Urine Catheter - Catheter Staphylococcus aureus Corynebacterium minutissimum Laboratory Tests Past 24 Hrs 07/27/17 07/27/17 07/27/17 07:10 07:10 07:10 WBC 8.9 RBC 4.22 L Hgb 8.9 L Hct 30.1 L MCV 71.3 L MCH 21.1 L MCHC 29.6 L RDW 24.7 H RDW Differential 58.2 H Plt Count 145 L MPV 7.9 Immature Gran % (Auto) 0.200 Neut % (Auto) 74.1 H Lymph % (Auto) 8.6 L Falls % (Auto) 14.8 H Eos % (Auto) 1.7 Baso % (Auto) 0.6 Absolute Neuts (auto) 6.6 Absolute Lymphs (auto) 0.76 L Total Counted Not Reportable Immature Plt Fraction 1.8 RBC Morphology 1+ Hypochromasia 2+ Anisocytosis 3+ Retic Count 1.73 H Immature Retic Fraction 24.40 H Retic Hgb Equivalent 31.0 PT 22.0 H INR 1.9 Sodium 138 Potassium 3.5 Chloride 103 Carbon Dioxide 28.0 Anion Gap 7 BUN 15 Creatinine 0.88 Estim Creat Clear Calc 88.22 Est GFR (MDRD) Af Amer 110 Est GFR (MDRD) Non-Af 91 BUN/Creatinine Ratio 17.1 Glucose 95 Calcium 7.3 L Phosphorus 2.2 L Magnesium 2.0 Total Bilirubin 0.90 AST 35 ALT 24 Alkaline Phosphatase 276 H Lactate Dehydrogenase 213 Total Protein 6.5 Albumin 2.3 L Globulin 4.2 Albumin/Globulin Ratio 0.5 L TSH 10.60 H Free T4 07/27/17 07:10 WBC RBC Hgb Hct MCV MCH MCHC RDW RDW Differential Plt Count MPV Immature Gran % (Auto) Neut % (Auto) Lymph % (Auto) Falls % (Auto) Eos % (Auto) Baso % (Auto) Absolute Neuts (auto) Absolute Lymphs (auto) Total Counted Immature Plt Fraction RBC Morphology Hypochromasia Anisocytosis Retic Count Immature Retic Fraction Retic Hgb Equivalent PT INR Sodium Potassium Chloride Carbon Dioxide Anion Gap BUN Creatinine Estim Creat Clear Calc Est GFR (MDRD) Af Amer Est GFR (MDRD) Non-Af BUN/Creatinine Ratio Glucose Calcium Phosphorus Magnesium Total Bilirubin AST ALT Alkaline Phosphatase Lactate Dehydrogenase Total Protein Albumin Globulin Albumin/Globulin Ratio TSH Free T4 1.19 Medical Necessity - Tobacco Use Smoking Status: Former smoker Tobacco Use: Cigarettes Assessment/Plan Active and Suspected Problems PAD (peripheral artery disease) (Acute) Impressions 1. venous stasis ulcers of BL LE's with suspected cellulitis of the LE's -due to methicillin sensitive staph aureus and Serratia liquefaciens group 2. PVD of the right LE 3. Enlarged liver with fatty infiltration and a small amount of fluid in the perihepatic space - no ascites 4. GB sludge with a thickened GB wall 5. splenomegaly 6. Hypothyroidism 7. Anxiety/depression 8. BPH 9. Chronic anticoagulation with warfarin with subtherapeutic INR currently 10. Iron deficiency anemia -has been transfused with 1 unit of packed red blood cells in the hospital 11. Stage I decubitus ulcer cephalad portion of the anal cleft 12. Chronic atrial fibrillation 13. History of CVA 14. Chronic renal failure stage III 15. Ischemic cardiomyopathy with moderate concentric left ventricular hypertrophy with a moderately dilated left ventricle and a 25% ejection fraction with several wall motion abnormalities. 16. Severe dilated right ventricle with an estimated right ventricular systolic pressure of 56-consistent with moderate pulmonary hypertension 17. Mild to moderate aortic stenosis 18. Coronary artery disease with history of CABG 19. Hyperglycemia-check a hemoglobin A1c Stool is Hemoccult negative. He has both hepatomegaly and splenomegaly but the Bili and the LDH are normal so I doubt hemolysis. I suspect he has chronic intermittent blood loss from the GI tract due to chronic anticoagulation Will need to query the family when his last colonoscopy was. Continue the oral iron supplement He will need an outpatient PSG and referral to pulmonary medicine for workup and treatment of pulmonary hypertension..... This may be the etiology of lower extremity edema and pitting in the flanks Continue IV Lasix 40 mg twice daily for anasarca around the abdomen Will need to follow up with Dr. Lowe post DC to arrange for angiogram of the RLE and possible revascularization Code Visit Inpatient E&M: 76605 Subs Hosp L2
--- NOTE | 2017-07-27 19:41 | NURSING ---
AT 1320, This nurse changed dressings to BLE. THis morning, old dressings were taken off for Dr. Lucio to assess and then left open to air until now when this nurse could re-dress. Morphine was given prior to dressing change per orders. Cleaned ble with soap and water and patted dry. applied adaptic to open skin tear like wounds to ble then topped with abd pads and both legs wrapped with kerlix.
[2017-07-27 21:23] VITALS: BP 124/69; PULSE 65; RESP 20; TEMP 37; O2SAT 94
[2017-07-27] MEDS: Atorvastatin Calcium 20 MG Tablet PO (21:47)
[2017-07-27] MEDS: Tamsulosin HCl 0.4 MG Capsule PO (21:47)
[2017-07-27] MEDS: Haloperidol Lactate 5 MG/ML Vial 1 MG IM (22:37)
--- NOTE | 2017-07-27 22:40 | NURSING ---
Pt yelling out for water. Educated patient over and over on fluid restriction. Patient cussing at staff and threatening to walk or crawl out of here if he has to and that he is leaving tomorrow. Medicated with 1mg Haldol IV. See MAR.
[2017-07-28 02:28] VITALS: BP 116/66; PULSE 65; RESP 20; TEMP 36.6; O2SAT 98
[2017-07-28] MEDS: Cefazolin 1 GM/50 ML BAG IV (05:25)
[2017-07-28] MEDS: Levothyroxine 88 MCG Tablet PO (05:25)
[2017-07-28 06:14] LABS: International Normalized Ratio 1.9; Prothrombin Time (Protime)PT. 21.7 SECONDS (11.7-14.9)
[2017-07-28 06:18] LABS: Phosphorus 2.8 mg/dL (2.5-4.9)
--- NOTE | 2017-07-28 08:50 | CASEMGMT ---
Social Work Note JARRED placed a call to Kathleen at [facility] asking if they were able to verify pt's insurance. Per Kathleen pt's insurance looks good and they are able to accept pt pending pre-cert. JARRED faxed updated clinicals to Kathleen at [facility]. Kathleen states that she will submit for pre-cert today. JARRED will continue to follow along to assist with discharge planning. Plan: [facility] pending pre-cert Corie Espinosa PRODUCT PLANNER, INHALATION THERAPIST
[2017-07-28 08:55] VITALS: BP 98/55; PULSE 72; RESP 18; TEMP 36.7; O2SAT 94
[2017-07-28] MEDS: Aspirin 81 MG TAB.CHEW PO (08:58)
[2017-07-28] MEDS: Ferrous Sulfate 325 MG Tablet PO (08:58)
[2017-07-28 09:00] VITALS: PULSE 66; RESP 66
[2017-07-28] MEDS: Amiodarone 200 MG Tablet PO (10:49)
[2017-07-28] MEDS: Sertraline 50 MG Tablet PO (10:49)
[2017-07-28] MEDS: Furosemide 40 MG/4 ML Vial IV (10:49)
[2017-07-28] MEDS: Carvedilol 12.5 MG Tablet PO (10:49)
[2017-07-28] MEDS: Losartan Potassium 25 MG Tablet PO (10:49)
[2017-07-28] MEDS: 0.9% NaCl Peripheral Flush Adult/Peds IV (10:49)
[2017-07-28] MEDS: Nystatin Ointment 1 APPLIC TOPICAL (10:50)
[2017-07-28] MEDS: Menthol/Lanolin/Calamine/Znox 113 GM Tube 1 APPLIC TOPICAL (10:50)
[2017-07-28 10:58] LABS: Anion Gap 7 (5-15); BUN 15 mg/dL (7-18); BUN/Creat Ratio 16.9 RATIO (10-20); Calcium,Total 7.8 mg/dL (8.5-10.1); Chloride 99 mmol/L (98-107); Creatinine, Serum 0.88 mg/dL (0.70-1.30); EST Glomerular Filtration Rate 90 mL/min (>60); Est Glom Filt Rate - Afr Amer 109 mL/min (>60); Estimated Creatinine Clearance 88.22 ml/min; Glucose 85 mg/dL (74-106); Potassium 3.5 mmol/L (3.5-5.1); Sodium Level 137 mmol/L (136-145)
[2017-07-28] MEDS: Morphine 4 MG/ML Syringe 2 MG IV (11:45)
--- NOTE | 2017-07-28 12:32 | PCM.DC ---
- Discharge Diagnoses Current Active Problems: Current Active and Chronic Problems PAD (peripheral artery disease) (Acute) Chronic wound of extremity (Chronic) Decubitus ulcer of sacral area (Chronic) You will use the following diet at home:: Cardiac - 2 GM sodium diet, Fiber restricted - no more than 1500 cc's daily Your food should be the consistency of: Regular Your liquids should be the consistency of: Regular/Thin Discharge Activity: - - Do NOT sit in a chair with your legs down for any longer than 10-15 m,inutes at a day. when you are sitting in a chair for more than 10 minutes you MUST elevate the legs to keep the swelling out. Keep extremity elevated above heart level: Legs Call your doctor if you observe: Fever of 101 or Higher, Shortness of breath, Dizziness, Fainting spells, Chest pain, Increased palpitations (irregular heartbeat), Uncontrolled pain Instructions: ED Anemia Iron Deficiency, Chronic Venous Insufficiency: Treating Ulcers Additional Instructions: 1. You are anemic....that means your blood count is low. Your bone marrow is not making new red blood cells because you are iron deficient. Generally people get iron deficient because they are chronically losing blood from somewhere. You should discuss this with Dr. Fields....she may want to order some tests to find out where the blood loss is coming from. 2. The ulcers on your legs are called venous stasis ulcers......they come from having chronic swelling in the legs and the skin breaks open. It is VERY IMPORTANT to keep the swelling out of the legs.......to do this you must decrease your fluid intake, take the Lasix twice daily as directed, elevate your legs when sitting AND eat a LOW SALT DIET. 3. The low blood count contributes to the shortness of breath.....we have to find out where you are losing blood and supplement the iron. Take your iron supplement twice a day with food. 4. There is a mouth wash/spray called Biotene that can be purchased at most pharmacies. This is like artificial saliva and it can help with the dry mouth....in place of drinking large volumes of water. 5. You saw a vascular surgeon by the name of Dr. Zach Lowe in the hospital and you have peripheral vascular disease. This means that the arteries that supply blood and oxygen to you legs and feet are narrowed. The blood and oxygen is important in wound healing and Dr. Lowe wants to bring you back into the hospital in the next few weeks to try and open up the arteries in the R leg to imprve the blood flow. You should follow up with him in the office to arrange to have this done. Pending Tests on Discharge: none Allergies/Adverse Reactions: Allergies latex Allergy (Verified 07/21/17 13:21) Rash LEEANN Inhibitors Adverse Reaction (Verified 10/28/16 18:44) Other Medications to take at Discharge Amiodarone HCl 200 mg PO DAILY 10/28/16 Atorvastatin Calcium [Lipitor] 20 mg PO QHS 10/28/16 Carvedilol [Coreg (Beta Kaycee)] 12.5 mg PO BID 10/28/16 Furosemide [Lasix] 40 mg PO DAILY 10/28/16 Levothyroxine [Synthroid] 88 mcg PO DAILY 10/28/16 Losartan Potassium 25 mg PO DAILY 10/28/16 Tamsulosin HCl [Flomax] 0.4 mg PO QHS 10/28/16 Furosemide [Lasix] 20 mg PO DINNER 07/21/17 Sertraline HCl [Zoloft] 50 mg PO DAILY 07/21/17 Ferrous Sulfate 325 mg PO BIDCM #60 tab 07/28/17 Levofloxacin [Levaquin] 500 mg PO DAILY #5 tab 07/28/17 Potassium Chloride [Klor-Con M10] 10 meq PO BID #60 tab.er.prt 07/28/17 Warfarin [Coumadin] 3 mg PO SuTuThSa@1700 #36 tab 07/28/17 The following prescriptions were given: Levofloxacin [Levaquin] 500 mg PO DAILY #5 tab Warfarin [Coumadin] 3 mg PO SuTuThSa@1700 #36 tab Ferrous Sulfate 325 mg PO BIDCM #60 tab Potassium Chloride [Klor-Con M10] 10 meq PO BID #60 tab.er.prt Primary Care Physician: Donnie Marrero DO [Primary Care Provider] - Please follow up with your Primary Care Physician in: 5-7 days Please Follow Up With: Zach Lowe MD When: PATRICIA to arrange angiogram and stenting RLE Proposed Discharge Date: 07/28/17
[2017-07-28] MEDS: Ceftriaxone 1 GM/50 ML BAG IV (12:41)
[2017-07-28] MEDS: BENZOCAINE/MENTHOL 1 LOZENGE MUCOUS MEM (12:47)
--- NOTE | 2017-07-28 12:52 | PCM.DC.SUM ---
Discharge Date and Diagnosis Date of Admission: 07/21/17 Date of Discharge: 07/28/17 - Primary Discharge Diagnosis Active and Suspected Problems Cellulitis (Acute)BL LE's Venous stasis ulcers of both lower extremities (Acute) - Secondary Discharge Diagnosis Chronic Problems Systolic congestive heart failure (Chronic) Aortic stenosis (Chronic) Pulmonary hypertension (Chronic) Ischemic cardiomyopathy (Chronic) Iron deficiency anemia (Chronic) BPH (benign prostatic hyperplasia) (Chronic) Splenomegaly (Chronic) Gallbladder sludge (Chronic) Fatty infiltration of liver (Chronic) PAD (peripheral artery disease) (Chronic) Stage III chronic kidney disease (Chronic) Chronic atrial fibrillation (Chronic) Status post coronary artery bypass graft (Chronic) Decubitus ulcer of sacral area (Chronic) Hypothyroidism (Chronic) 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 Pulmonary HTN Hospital Course and Treatment Imaging Results: Clinical Impression(s) from Imaging Studies Chest X-Ray 07/21/17 14:15 IMPRESSION: Cardiomegaly. Stable pleural parenchymal changes at the left lung base. Electronically Signed: Edgard Alejo MD at 15:14 EDT Tel [phone], Service support , Abdomen Ultrasound 07/23/17 12:02 IMPRESSION: Hepatosplenomegaly. Small amount of free fluid in the perihepatic space. Thickening of the gallbladder wall. Sludge within the gallbladder lumen. 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 Zach Lowe-vascular surgery Operations: None Procedures: 2-D Echocardiogram - Moderate concentric left ventricular hypertrophy, moderately dilated left ventricle, ejection fraction of 25%, multiple segmental wall motion abnormalities, severely dilated right ventricle with mild to moderate global right ventricular systolic dysfunction, severe biatrial enlargement, mild to moderate tricuspid regurgitation, elevated right ventricular systolic pressure at 56 considered moderate pulmonary hypertension mild to moderate aortic stenosis Summary of Care Provided: The patient is a 72-year-old male with a history of coronary artery disease, CABG, CVA, dyslipidemia, chronic congestive heart failure, atrial fibrillation, hypothyroidism, chronic anticoagulation with warfarin and BPH who has in the past had non-healing wounds on his legs secondary to chronic venous insufficiency and a a sedentary lifestyle sitting in a chair with his legs dependent. He is known to be non-complaint. He went to his PCP's office and was reportedly hypotensive and was sent to the Ed at [facility] on 07/21/17. Vital signs at presentation to the emergency room were temperature 96.9, pulse rate 80, blood pressure 125/53, respiratory rate 20 and he was 93% saturated on room air. There was no hypotension throughout the duration of his hospital stay. White blood cell count at admission was 8.6 with 76% neutrophils. Hemoglobin was 8.3 with an MCV of 66.6 and an RDW of 21.6. ELytes were within normal limits. There was hypochromasia and anisocytosis. INR was therapeutic at 2.1. Sodium was low at 133 and the BUN was 21 with a creatinine of 1.47. Creatinine in October 2016 was 1.51. Iron studies were done secondary to anemia with microcytosis and showed a low serum iron of 18 with a iron saturation of 5.1% and a TIBC of 356. The ferritin was 39. Alk phos was mildly increased to 200 but the remainder of the LFTs were unremarkable. He was admitted to the hospital with cellulitis and started on ancef. There was a concern given his hx of stroke and CABG and smoking that he may have PVD. JAYLENE's were ordered and showed evidence of occlusive disease on the right with poor waveform and monophasic flow. There was no evidence of severe occlusive disease on the left with an JAYLENE of 1.3 and biphasic flow. He was seen in consultation by Dr. Lowe who felt he had adequate circulation to heal the venous stasis ulcers he has on his lower extremities currently. He plans on bringing the patient back to the hospital at some point to have a right leg angiogram with intervention trying to stent through the superficial femoral artery on the right. He will need to be on Plavix post stenting so will need a workup to determine the etiology of iron deficiency anemia. Stool was heme negative and the LDH and bili were normal making hemolysis unlikely. The Wound culture grew methicillin sensitive Staphylococcus aureus and Serratia liquefaciens. The Serratia was resistant to cefazolin and he was converted to Levaquin. While in the hospital he was seen daily by the wound care nurse for dressing changes. He was mostly in bed with his legs elevated. Lasix was held at admission and the pt developed LE edema and also pitting edema in the flanks. His lungs were always CTA and he laid flat in bed with no respiratory difficulties. He was treated for a few days with IV Lasix and then transitioned to PO. Multiple discussions were held with the patient and his family regarding disposition at [place]. At first they wanted to take him home and then they decided he should go to a SNF for wound care. 1 hour prior to transportation to the SNF they decided to take him home. They requested a hospital bed to have at home but he does not require sudden changes in position and he had been comfortable lying flat in bed for most of the hospital admission and I did not feel he would need a hospital bed. His commented that this was stupid. When I asked who would be changing the dressings she said her son. The dtr felt he should stay in the hospital for tx of CHF however, he was in NAD lying flat in bed and his pulse ox on RA ranged from 94-98%. He was non-compliant with fluid restriction in the hospital and was very agitated and profane when we placed him on a 1500 cc fluid restriction. He was constantly yelling out and disturbed other patients. This behavior continued throughout the entire stay despite multiple staff talking to him about keeping his voice down. His and dtr also yelled at each other when visiting per the staff. He was afebrile for the duration of his hospital stay. The white blood cell count was always within normal limits and there was no significant left shift. INR was subtherapeutic and the warfarin dose was adjusted. The creatinine decreased from 1.47 at admission to 0.88 at discharge. On the date of discharge his vital signs were temperature 97.6, pulse rate 61, blood pressure 112/56 with a respiratory rate of 18 and he was 94-98% saturated on room air. At the time of discharge the redness over the distal right lower extremity had markedly improved. Unfortunately the wound bases are pale and mostly slough with some adherent dark eschar. Capillary refill is poor in the right foot blanches severely with elevation. Lower extremity was not cold to touch and there was no cyanosis. He was discharged home with home health care for wound care. He was given prescriptions for Levaquin 500 mg p.o. daily ?5 more days, ferrous sulfate 325 mg twice daily, potassium chloride 10 mEq twice daily and Warfarin. The prescription sent to the Pharmacy did not trransmit correctly and directions were given directly to the pharmacist filling the prescription. He was instructed to follow a low salt diet and follow up with Dr. Marrero in 5-[address] Chrissy GOMEZ to arrange for an angiogram and stenting. He will keep his legs elevated above the level of the heart when sitting. This note was generated with [employer] dictation software. It may contain incorrect words, spelling, and punctuation that were not noted in checking the note before signing. Discharge Activity: - - Do NOT sit in a chair with your legs down for any longer than 10-15 m,inutes at a day. when you are sitting in a chair for more than 10 minutes you MUST elevate the legs to keep the swelling out. Keep extremity elevated above heart level: Legs Call your doctor if you observe: Fever of 101 or Higher, Shortness of breath, Dizziness, Fainting spells, Chest pain, Increased palpitations (irregular heartbeat), Uncontrolled pain Home Medications: Medications to take at Discharge Amiodarone HCl 200 mg PO DAILY 10/28/16 Atorvastatin Calcium [Lipitor] 20 mg PO QHS 10/28/16 Carvedilol [Coreg (Beta Kaycee)] 12.5 mg PO BID 10/28/16 Furosemide [Lasix] 40 mg PO DAILY 10/28/16 Levothyroxine [Synthroid] 88 mcg PO DAILY 10/28/16 Losartan Potassium 25 mg PO DAILY 10/28/16 Tamsulosin HCl [Flomax] 0.4 mg PO QHS 10/28/16 Furosemide [Lasix] 20 mg PO DINNER 07/21/17 Sertraline HCl [Zoloft] 50 mg PO DAILY 07/21/17 Ferrous Sulfate 325 mg PO BIDCM #60 tab 07/28/17 Levofloxacin [Levaquin] 500 mg PO DAILY #5 tab 07/28/17 Potassium Chloride [Klor-Con M10] 10 meq PO BID #60 tab.er.prt 07/28/17 Warfarin [Coumadin] 3 mg PO SuTuThSa@1700 #36 tab 07/28/17 Following Prescrptions Were Given to Patient: Levofloxacin [Levaquin] 500 mg PO DAILY #5 tab Warfarin [Coumadin] 3 mg PO SuTuThSa@1700 #36 tab Ferrous Sulfate 325 mg PO BIDCM #60 tab Potassium Chloride [Klor-Con M10] 10 meq PO BID #60 tab.er.prt Primary Care Physician: Donnie Marrero DO [Primary Care Provider] - Please follow up with your Primary Care Physician in: 5-7 days Please Follow Up With: Zach Lowe MD When: PATRICIA to arrange angiogram and stenting RLE Patient Instructions: Chronic Venous Insufficiency: Treating Ulcers, ED Anemia Iron Deficiency Disposition: Home with Home Health Minutes spent on discharge:: 40 Patient Condition:: Stable Medical Necessity - Tobacco Use Smoking Status: Former smoker Tobacco Use: Cigarettes Meaningful Use Info Meaningful Use Diagnoses (Choose all that apply): None applicable Code Visit Inpatient E&M: 20394 Disch Hosp
[2017-07-28 15:22] VITALS: BP 112/56; PULSE 61; RESP 18; TEMP 36.4; O2SAT 94
--- NOTE | 2017-07-28 16:22 | CASEMGMT ---
Social Work Note JARRED received call from Kathleen at [facility] stating that pre-cert has been obtained. Kathleen asked this worker if pt will be discharged on IV antiobiotics and if pt currently has a wound vac. JARRED asked Dr. Lucio this and per Dr. Lucio pt will not be discharged on IV antibiotics and that he doesn't have a wound vac. JARRED updated Kathleen at [facility] of this. JARRED called pt's daughter Saloni that pre-cert has been obtained and that the doctor is discharging pt. Saloni states that she feels like pt is not ready to discharge due to CHF. This worker informed Saloni that the doctor has discharged pt and that she feels medically pt is able to discharge. JARRED informed Saloni that Dr. Lucio can call Saloni to speak to her about discharge. JARRED updated Dr. Lucio of this. JARRED set up transportation via [place] via cot for 3:00pm. JARRED updated Dr. Lucio of this who was on phone with pt's daughter and informed her of transportation time. JARRED completed transportation form. JARRED received call from pt's daughter Saloni that pt's has decided to take pt home with home health care. Per Saloni she is agreeable to [facility]. JARRED placed a call to Anna Marie with [facility] and per Anna Marie she can accept pt. JARRED informed Anna Marie that pt will be discharging today and that pt needs mcfp, PT/OT, and SW. JARRED completed Home Health Care order. JARRED updated Saloni of this. Saloni states that she would like a hospital bed and bedside commode from [facility]. JARRED informed Saloni that this worker can fax scripts to [facility] and that they will be in contact with pt about medical equipment. Saloni states understanding. JARRED called [facility] to inform them that scheduled transportation needs to be cancelled as it is not needed anymore. JARRED placed a call to Kathleen at [facility] and updated her that pt will no longer be coming for placement. Kathleen states understanding. JARRED completed scripts for Hospital Bed and Bedside Commode and Dr. Lucio signed scripts. JARRED faxed scripts to [facility] and updated Campos at [facility] of Referral. Campos called this worker back and informed this worker that he is unsure if bedside commode will be covered and also asked that in notes from the Doctor that the doctor specifically mentions that hospital bed is needed. JARRED informed Dr. Lucio of this. Dr. Lucio informed this worker that she will not put in notes that hospital bed is needed as she feels pt doesn't meet criteria for hospital bed. Dr. Lucio states that if pt's family has questions about this to have them call her. JARRED updated Campos at [facility] of this. Campos states that he will hold off on hospital bed and that if the family wants to follow up with [facility] they can call him. JARRED updated pt's daughter and of this as they are currently in pt's room. SW provided pt's daughter with [facility] number and encouraged pt's daughter and to follow up with [facility]. SW informed pt's daughter and that if they would like scripts for DME after pt leaves the hospital to follow up with pt's PCP to get scripts. Pt's and daughter states understanding. Pt's states that she will be calling about her hospital experience and giving this hospital a bad referral. Pt's states how am I supposed to get him out of bed, now I have to go buy a bed myself and pay out of pocket for a bed. SW listened to pt's concerns. Pt's states so either it would've been take pt to care home and pay out of pocket or take pt home with out of pocket pay for DME. JARRED informed pt's that pt's stay at SNF would've been covered as pre-cert was obtained and his insurance was willing to pay for pt's stay at SNF. Pt's continued to state frustration as evidenced by tone of voice and continued statements and unsatisfactory remarks about hospital. SW listened to pt's frustration and encouraged pt to call patient advocate if she feels that the experience at this hospital was unsatisfied. Pt, pt's and pt's daughter denied additional needs or concerns at this time. Plan: Pt to discharge home with [facility] with mcfp, PT/OT, and social work referral. Pt's daughter and to transport pt home. Corie Espinosa ACCESS ANALYST, BRAKE LININGS COATER
--- NOTE | 2017-07-29 13:46 | PCA ---
TC call placed to pt mobile cell number due to pt glasses found in room upon discharge. Spoke with pt daughter, Saloni, who stated the glasses can be thrown away and the pt has multiple pairs at home.
--- NOTE | 2017-07-30 14:39 | CASEMGMT ---
ANGELITA GALVAN Discharge Follow-up Phone Call: TIFFANY: Shawn Strata: 3 Call Date: 07/30/17 Discharge Date: 07/28/17 Time of Call: 1440 Duration: 5 min Admitting Diagnosis: Leg cellulitis ANGELITA GALVAN completed follow-up phone call after recent hospitalization. ANGELITA GALVAN spoke with patient's daughter Saloni. Daughter states that patient is doing well. C has been to the house. There were no questions regarding discharge instructions or prescriptions. Family was able to picker feeder prescriptions without any problems. Daughter has scheduled follow-up appts with PCP and Dr. Lowe. No suggestions for the hospital.
== END 2017-07-28 17:53 | disposition home health service (06) | DRG 603 ==
LOC: ED 16:47 → MS3 18:41
PROVIDERS: Hospitalist; Emergency Provider Emergency Medicine; Family Provider Student in an Organized Health Care Education/Training Program; PCP Student in an Organized Health Care Education/Training Program; Visit Provider Internal Medicine
DX: L03.115 Cellulitis of right lower limb (principal); R18.8 Other ascites; L97.229 Non-pressure chronic ulcer of left calf with unspecified severity; L97.219 Non-pressure chronic ulcer of right calf with unspecified severity; I13.0 Hypertensive heart and chronic kidney disease with heart failure and stage 1 through stage 4 chronic kidney disease, or unspecified chronic kidney disease; I50.22 Chronic systolic (congestive) heart failure; L03.116 Cellulitis of left lower limb; I87.8 Other specified disorders of veins; E03.9 Hypothyroidism, unspecified; I48.2 Chronic atrial fibrillation; I25.10 Atherosclerotic heart disease of native coronary artery without angina pectoris; N18.3 Chronic kidney disease, stage 3 (moderate); L89.151 Pressure ulcer of sacral region, stage 1; D50.9 Iron deficiency anemia, unspecified; F01.50 Vascular dementia, unspecified severity, without behavioral disturbance, psychotic disturbance, mood disturbance, and anxiety; I70.201 Unspecified atherosclerosis of native arteries of extremities, right leg; Z95.1 Presence of aortocoronary bypass graft; I69.319 Unspecified symptoms and signs involving cognitive functions following cerebral infarction
CPT/HCPCS: 36415; 71045; 76700; 80048; 80053; 80076; 81001; 82274; 82728; 82962; 83036; 83540; 83550; 83605; 83615; 83735; 84100; 84439; 84443; 85014; 85018; 85025; 85045; 85610; 85730; 86850; 86900; 86920; 86922; 87040; 87070; 87077; 87086; 87088; 87186; 87205; 87640; 93005; 93306; 93922; 93925; 97110; 97162; 97165; 97530; 97802; 99284; J1756; J7030; J7040; J7050; P9016; Q9957; A4216; C8929; J1940

== ENCOUNTER 2017-08-01 09:26 | Outpatient (RCR) | payer MEDICARE, SELFPAY ==
[2017-08-01 09:58] LABS: International Normalized Ratio 1.6; Prothrombin Time (Protime)PT. 19.2 SECONDS (11.7-14.9)
== END 2017-08-07 23:59 ==
LOC: HHLAB 09:26
PROVIDERS: Internal Medicine; Family Provider Student in an Organized Health Care Education/Training Program; PCP Student in an Organized Health Care Education/Training Program; Visit Provider Internal Medicine Cardiovascular Disease
DX: Z79.01 Long term (current) use of anticoagulants (principal)
CPT/HCPCS: 85610

== ENCOUNTER 2017-08-20 09:02 | Day surgery (SDC) | payer MEDICARE, SELFPAY ==
[2017-08-19 08:35] VITALS: BMI 29.4
[2017-08-20 09:45] LABS: Prothrombin Time Fingerstick 15.5 SEC (11.9-14.4)
--- NOTE | 2017-08-20 11:26 | OP.PCM_ITS ---
Problem List (1) PAD (peripheral artery disease) Status: Chronic Report of Operation Date of Procedure: 08/20/17 Pre-Operative Diagnosis: Peripheral arterial disease with lower extremity wounds Post-Operative Diagnosis: The same Surgery/Procedure Performed:: 1. Ultrasound-guided access retrograde left common femoral artery. 2. Right lower extremity angiogram with catheter placed into the popliteal artery. 3. Balloon angioplasty the adductor to the mid popliteal with a 5 mm balloon and then a 6 mm drug-coated balloon. 4. Closure was Star close Type of Anesthesia:: Sedation,Conscious Description of Procedure: Patient brought to the Stage Setting Painter Apprentice. Underwent the appropriate timeout and consent. Prepped and draped in a sterile fashion. We did also get access retrograde left common femoral artery. Put a wire up into the aorta then a 5 Hebrew sheath gave 5000 units of heparin. We got up and over the bifurcation then and imaged from the right external echo artery show in the common femoral profunda SFA widely patent we then image down the leg shown at the adductor to the proximal to mid popliteal was occluded below there there appear to be good runoff down through the anterior tib and peroneal with some mild to moderate stenosis of the peroneal but good caliber all the way to the foot. Posterior tibial artery appear to be occluded distally but small proximally. We then brought in the longer 6 Hebrew sheath using a quick cross catheter got through the occlusion we confirmed that we had good flow below this we then replaced a long stiff Glidewire and then brought in a 5 x 1 20 balloon balloon for over 4 minutes it appeared to be improved much better than I would have thought. In good flow through this we then elected to try a 6 x 80 drug-coated balloon and this also was markedly improved with really no significant dissection and good flow through so we left this intact and will start the patient on Plavix. We removed out the sheath deployed a Star close with good hemostasis he was brought to recovery then in stable condition Sedation: Patient underwent conscious sedation on this 72-year-old gentleman. This was monitored by Dr. Zach Lowe. We had continuous pulse oximetry EKG and blood pressure monitoring. See the EMR for the permanent records. He underwent 25 of fentanyl and 1/2 mg of Versed with 5000 units of heparin. He tolerated this well throughout the 30 minutes of the case.
== END 2017-08-20 15:30 | disposition home or self-care (01) ==
LOC: CLSP 09:04
PROVIDERS: Family Provider Student in an Organized Health Care Education/Training Program; PCP Student in an Organized Health Care Education/Training Program; Visit Provider Surgery Vascular Surgery
DX: I73.9 Peripheral vascular disease, unspecified (principal); I13.0 Hypertensive heart and chronic kidney disease with heart failure and stage 1 through stage 4 chronic kidney disease, or unspecified chronic kidney disease; N18.3 Chronic kidney disease, stage 3 (moderate); I50.9 Heart failure, unspecified; I48.2 Chronic atrial fibrillation; I25.10 Atherosclerotic heart disease of native coronary artery without angina pectoris; E03.9 Hypothyroidism, unspecified; Z95.1 Presence of aortocoronary bypass graft; Z87.891 Personal history of nicotine dependence; Z79.01 Long term (current) use of anticoagulants; Z79.899 Other long term (current) drug therapy
CPT/HCPCS: 36245; 36416; 37224; 75710; 76937; 85610; 99152; 99153; C2623; J7040; Q9967; C1725; C1760; C1769; C1887; C1894

== ENCOUNTER 2017-09-01 16:00 | Outpatient (RCR) | payer MEDICARE, SELFPAY ==
--- NOTE | 2017-08-14 11:00 | DT_ITS ---
This patient was seen during an EMR downtime August 11, 2017 - August 18, 2017. This patient may have a combination of paper and electronic documentation or all paper documentation. All documentation is viewable within the e-chart portion of [employer] for each patient visit.
[2017-08-28 10:41] VITALS: BP 96/44; PULSE 67; RESP 22; TEMP 35.9
--- NOTE | 2017-08-28 16:42 | HP.PCM_ITS ---
(1) Bilateral leg ulcer Status: Acute Current Visit: Yes Code(s): L97.919 - Non-pressure chronic ulcer of unspecified part of right lower leg with unspecified severity; L97.929 - Non-pressure chronic ulcer of unspecified part of left lower leg with unspecified severity (2) CAD (coronary artery disease) Status: Chronic Current Visit: No Code(s): I25.10 - Atherosclerotic heart disease of [place] coronary artery without angina pectoris (3) PAD (peripheral artery disease) Status: Chronic Current Visit: Yes Code(s): I73.9 - Peripheral vascular disease, unspecified History of Present Illness Date of Service: 08/28/17 Chief Complaint: Bilateral lower extremity ulcers History of Wound: Mr Valles is a 72yo who presents to the to the wound center with concerns for bilateral lower extremity ulcers. He denies any known precipitating factor. He actually was seen here about 2 weeks ago of brief. Of hospital stay for lower extremity ulcer/cellulitis. He was not very compliant and open to wound care measures and so he was advised to apply Santyl and will return. Patient did not return in the interim however it is believed that he had vascular interventions his bilateral lower extremity and is currently on Plavix. He denies any complaints at this time and reports improvement in his pain. Past Medical History Past Medical History: Chronic Problems Systolic congestive heart failure (Chronic) Aortic stenosis (Chronic) Pulmonary hypertension (Chronic) Ischemic cardiomyopathy (Chronic) Iron deficiency anemia (Chronic) BPH (benign prostatic hyperplasia) (Chronic) Splenomegaly (Chronic) Gallbladder sludge (Chronic) Fatty infiltration of liver (Chronic) PAD (peripheral artery disease) (Chronic) Stage III chronic kidney disease (Chronic) Chronic atrial fibrillation (Chronic) Status post coronary artery bypass graft (Chronic) Decubitus ulcer of sacral area (Chronic) Hypothyroidism (Chronic) CVA (cerebral vascular accident) (Chronic) CAD (coronary artery disease) (Chronic) Surgical History: coronary bypass surgery, total hip arthroplasty Allergies/Adverse Reactions: Allergies latex Allergy (Verified 08/19/17 08:39) Rash LEEANN Inhibitors Adverse Reaction (Verified 08/19/17 08:39) Other Home Medications: Ambulatory Orders Medication Instructions Recorded Amiodarone HCl 200 mg PO DAILY 10/28/16 Atorvastatin Calcium [Lipitor] 20 mg PO QHS 10/28/16 Carvedilol [Coreg (Beta Kaycee)] 12.5 mg PO BID 10/28/16 Furosemide [Lasix] 40 mg PO DAILY 10/28/16 Levothyroxine [Synthroid] 88 mcg PO DAILY 10/28/16 Losartan Potassium 25 mg PO DAILY 10/28/16 Tamsulosin HCl [Flomax] 0.4 mg PO QHS 10/28/16 Furosemide [Lasix] 20 mg PO DINNER 07/21/17 Sertraline HCl [Zoloft] 50 mg PO DAILY 07/21/17 Ferrous Sulfate 325 mg PO BIDCM #60 tab 07/28/17 Potassium Chloride [Klor-Con M10] 10 meq PO BID #60 tab.er.prt 07/28/17 Warfarin [Coumadin] 3 mg PO SuTuThSa@1700 #36 tab 07/28/17 - Family History Maternal - - patient is confused and unable to get adequate family history from him. Smoking Status: Former smoker Review of Systems Constitutional: Denies: Anorexia, Chills, Fever Eyes: Denies: Pain, Redness HEENT: Denies: Difficulty Swallowing Cardiovascular: Denies: Chest Pain, Chest Tightness Respiratory: Denies: Hemoptysis Gastrointestinal: Denies: Hematemesis, Vomiting - Physical Exam Vital Signs Temp Pulse Resp BP 96.6 F L 67 22 H 96/44 L 08/28/17 10:41 08/28/17 10:41 08/28/17 10:41 08/28/17 10:41 General: Alert, Oriented x3, Cooperative, No apparent distress HEENT: Atraumatic Oral: Moist Mucosa Neck: Supple Lungs: Normal air movement Abdomen: Non Tender Skin: Ulcer/ Wound Wound Measurements and Assessment WC - Nurse 1 - General Ulcer Measurement Start: 08/28/17 10:41 Freq: Status: Active Protocol: Activity Type Activity Date Activity User E-Sign Co-Sign Detail Recorded Client Recorded Date Recorded By Document 08/28/17 10:41 DL [id number] 08/28/17 11:00 DL 08/28/17 10:41 Wound Center Nurse 1 [Ulcer Assessment] #5 R 3rd Toe -Current Size (cm) - Length 0.9 -Current Size (cm) - Width 0.8 -Current Size (cm) - Depth 0.1 -Total Square Cm 0.72 -Photo Taken No -Exudate Amt None Present (0 %) -Wound Margin Thickened -Granulation Amt None Present (0 %) -Necrosis Amt Large (67-100%) -Necrotic Tissue Type Adherent Slough -Structure Exposed N/A -Texture (Desi-wound Skin Appearance) No Abnormality -Moisture (Desi-wound Skin Appearance Dry/Scaly ) -Color (Desi-wound Skin Appearance) Erythema Hemosiderin Staining -Temperature (Desi-wound Skin No Abnormality Appearance) (Pt Warm) -Ulcer Cleansing Wound Cleanser -Foul Odor after Cleansing No -Anesthetic Used 4% Lidocaine Solution #4 R 2nd Toe -Current Size (cm) - Length 1.6 -Current Size (cm) - Width 0.4 -Current Size (cm) - Depth 0.2 -Total Square Cm 0.64 -Photo Taken No -Exudate Amt Small (1-33%) -Exudate Type Serosanguineous -Wound Margin Thickened -Granulation Amt Medium (34-66%) -Granulation Quality Pale [place] -Necrosis Amt Small (1-33%) -Necrotic Tissue Type Adherent Slough -Structure Exposed N/A -Texture (Desi-wound Skin Appearance) Scarring -Moisture (Desi-wound Skin Appearance Dry/Scaly ) -Color (Desi-wound Skin Appearance) Erythema Hemosiderin Staining -Temperature (Desi-wound Skin No Abnormality Appearance) (Pt Warm) -Ulcer Cleansing Wound Cleanser -Foul Odor after Cleansing No -Anesthetic Used 4% Lidocaine Solution #3 R Heel -Current Size (cm) - Length 0.7 -Current Size (cm) - Width 0.8 -Current Size (cm) - Depth 0.1 -Total Square Cm 0.56 -Photo Taken No -Exudate Amt None Present (0 %) -Wound Margin Thickened -Granulation Amt Large (67-100%) -Necrosis Amt Large (67-100%) -Necrotic Tissue Type Eschar -Structure Exposed N/A -Texture (Desi-wound Skin Appearance) Scarring -Moisture (Desi-wound Skin Appearance Dry/Scaly ) -Color (Desi-wound Skin Appearance) Erythema Hemosiderin Staining -Ulcer Cleansing Wound Cleanser -Foul Odor after Cleansing No -Anesthetic Used 4% Lidocaine Solution #2R Post Calf Inf. Cluster -Current Size (cm) - Length 3.3 -Current Size (cm) - Width 1.2 -Current Size (cm) - Depth 0.1 -Total Square Cm 3.96 -Photo Taken No -Exudate Amt Small (1-33%) -Exudate Type Serosanguineous -Wound Margin Thickened -Granulation Amt Large (67-100%) -Granulation Quality Ru[place] -Necrosis Amt Small (1-33%) -Necrotic Tissue Type Adherent Slough -Structure Exposed N/A -Texture (Desi-wound Skin Appearance) Scarring -Moisture (Desi-wound Skin Appearance Dry/Scaly ) -Color (Desi-wound Skin Appearance) Erythema Hemosiderin Staining -Temperature (Desi-wound Skin No Abnormality Appearance) (Pt Warm) -Ulcer Cleansing Wound Cleanser -Foul Odor after Cleansing No -Anesthetic Used 4% Lidocaine Solution #1 R Post Calf Sup -Current Size (cm) - Length 2 -Current Size (cm) - Width 1.8 -Current Size (cm) - Depth 0.1 -Total Square Cm 3.6 -Photo Taken No -Exudate Amt None Present (0 %) -Wound Margin Thickened -Granulation Amt None Present (0 %) -Necrosis Amt Large (67-100%) -Necrotic Tissue Type Adherent Slough -Structure Exposed N/A -Texture (Desi-wound Skin Appearance) Scarring -Moisture (Desi-wound Skin Appearance Maceration ) -Color (Desi-wound Skin Appearance) Hemosiderin Staining -Temperature (Desi-wound Skin No Abnormality Appearance) (Pt Warm) -Ulcer Cleansing Wound Cleanser -Foul Odor after Cleansing No -Anesthetic Used 4% Lidocaine Solution [Edema Assessment] -Right Calf (cm) 34.6 -Right Ankle (cm) 21.2 -Left Calf (cm) 33.5 -Left Ankle (cm) 21 Musculoskeletal: No Muscle Wasting Neurological: Cranial nerves II-XII grossly intact Psych/Mental Status: Normal Affect Debridement Note No debridement was completed today Assessment/Plan Active Problems Bilateral leg ulcer (Acute) PAD (peripheral artery disease) (Chronic) Assessment: Bilateral lower extremity ulcers. Peripheral arterial disease. Plan: Patient represents of the wound center however, he is again not very open to wound care management. He continues to not follow instructions and at this time I do not believe coming to the wound center will be beneficial. I have asked that he return to his primary care physician for continued wound care and if and when he is open to wound care management will be glad to have him here. Discharge from the wound center. This note was generated with makeenaation software. It may contain incorrect words, spelling, and punctuation that were not noted in checking the note before signing.
[2017-09-01 16:23] VITALS: BP 130/59; PULSE 65; RESP 16; TEMP 36.4
--- NOTE | 2017-09-01 17:52 | PCM.WC.HP ---
(1) GI bleeding Status: Chronic Current Visit: No Code(s): K92.2 - Gastrointestinal hemorrhage, unspecified (2) Hearing deficit Status: Chronic Current Visit: No Code(s): H91.90 - Unspecified hearing loss, unspecified ear (3) Hypertension Status: Chronic Current Visit: No Code(s): I10 - Essential (primary) hypertension (4) A-fib Status: Chronic Current Visit: No Code(s): I48.91 - Unspecified atrial fibrillation (5) Ulcer of right lower extremity Status: Chronic Current Visit: Yes Qualifiers: Non-pressure ulcer stage: with fat layer exposed Qualified Code(s): L97.912 - Non-pressure chronic ulcer of unspecified part of right lower leg with fat layer exposed Code(s): L97.919 - Non-pressure chronic ulcer of unspecified part of right lower leg with unspecified severity (6) Ulcer of right foot Status: Chronic Current Visit: Yes Qualifiers: Non-pressure ulcer stage: with fat layer exposed Qualified Code(s): L97.512 - Non-pressure chronic ulcer of other part of right foot with fat layer exposed Code(s): L97.519 - Non-pressure chronic ulcer of other part of right foot with unspecified severity (7) PAD (peripheral artery disease) Status: Chronic Current Visit: Yes Code(s): I73.9 - Peripheral vascular disease, unspecified (8) Aortic stenosis Status: Chronic Current Visit: No Code(s): I35.0 - Nonrheumatic aortic (valve) stenosis (9) BPH (benign prostatic hyperplasia) Status: Chronic Current Visit: No Code(s): N40.0 - Benign prostatic hyperplasia without lower urinary tract symptoms (10) CAD (coronary artery disease) Status: Chronic Current Visit: No Code(s): I25.10 - Atherosclerotic heart disease of [place] coronary artery without angina pectoris (11) CVA (cerebral vascular accident) Status: Chronic Current Visit: No Code(s): I63.9 - Cerebral infarction, unspecified (12) Chronic atrial fibrillation Status: Chronic Current Visit: No Code(s): I48.2 - Chronic atrial fibrillation (13) Hypothyroidism Status: Chronic Current Visit: No Code(s): E03.9 - Hypothyroidism, unspecified (14) Iron deficiency anemia Status: Chronic Current Visit: No Code(s): D50.9 - Iron deficiency anemia, unspecified (15) Pulmonary hypertension Status: Chronic Current Visit: No Code(s): I27.20 - Pulmonary hypertension, unspecified (16) Stage III chronic kidney disease Status: Chronic Current Visit: No Code(s): N18.3 - Chronic kidney disease, stage 3 (moderate) (17) Status post coronary artery bypass graft Status: Chronic Current Visit: No Code(s): Z95.1 - Presence of aortocoronary bypass graft (18) Systolic congestive heart failure Status: Chronic Current Visit: No Code(s): I50.20 - Unspecified systolic (congestive) heart failure (19) PAD (peripheral artery disease) Status: Chronic Current Visit: Yes Code(s): I73.9 - Peripheral vascular disease, unspecified History of Present Illness Date of Service: 09/01/17 Chief Complaint: Ulcerations of the right lower extremity and right foot History of Wound: This is a 72-year-old male with multiple medical problems. He presented recently with ulcerations on the right distal lower extremity and on the right foot. The patient, he was accompanied by his , is uncertain as to the etiology of these ulcerations. They have been present for approximately 4-6 weeks. Approximately 6 weeks ago, the patient began to sleep in an upright sitting position. He spent most of his day and night sitting idlely. As result, his lower extremities experience significant swelling and edema. It is during this period of time that he developed ulcerations in the right lower extremity and right foot. It is suspected that the swelling, in conjunction with his shoes, resulted in pressure necrosis of his foot and toes, with resultant ulcerations developing on the dorsum of the right second and third toes. The swelling of the patient's foot, within the rigid foot wear, likely resulted in her ulcerations. Patient also has abrasions on the right calf, etiology of which is uncertain. In recent weeks, the patient has been sleeping in a dominant position at night. He is not very mobile or ambulatory, and requires the use of a walker for ambulation. He has no history of thrombophlebitis in the past. Review of patient records reveals evidence of noncompliance with medical recommendations in the past. It is also noted that the patient suffers from peripheral arterial occlusive disease, and underwent balloon angioplasty of the right popliteal artery by Dr. Zach Lowe at [facility] on August 20, 2017. Past Medical History Past Medical History: Chronic Problems GI bleeding (Chronic) Hearing deficit (Chronic) Hypertension (Chronic) A-fib (Chronic) Ulcer of right lower extremity (Chronic) Ulcer of right foot (Chronic) PAD (peripheral artery disease) (Chronic) Systolic congestive heart failure (Chronic) Aortic stenosis (Chronic) Pulmonary hypertension (Chronic) Ischemic cardiomyopathy (Chronic) Iron deficiency anemia (Chronic) BPH (benign prostatic hyperplasia) (Chronic) Splenomegaly (Chronic) Gallbladder sludge (Chronic) Fatty infiltration of liver (Chronic) PAD (peripheral artery disease) (Chronic) Stage III chronic kidney disease (Chronic) Chronic atrial fibrillation (Chronic) Status post coronary artery bypass graft (Chronic) Decubitus ulcer of sacral area (Chronic) Hypothyroidism (Chronic) CVA (cerebral vascular accident) (Chronic) CAD (coronary artery disease) (Chronic) Past Medical History: The patient has a history of congestive heart failure, cerebrovascular accident, hypertension, hearing deficit, gastrointestinal bleeding, atrial fibrillation, and hypothyroidism. His history is negative for myocardial infarction, diabetes mellitus, pulmonary disease, and hyperlipidemia. Surgical History: coronary bypass surgery, total hip arthroplasty - Left; bilateral carotid endarterectomy Allergies/Adverse Reactions: Allergies latex Allergy (Verified 08/19/17 08:39) Rash LEEANN Inhibitors Adverse Reaction (Verified 08/19/17 08:39) Other Home Medications: Ambulatory Orders Medication Instructions Recorded Amiodarone HCl 200 mg PO DAILY 10/28/16 Atorvastatin Calcium [Lipitor] 20 mg PO QHS 10/28/16 Carvedilol [Coreg (Beta Kaycee)] 12.5 mg PO BID 10/28/16 Furosemide [Lasix] 40 mg PO DAILY 10/28/16 Levothyroxine [Synthroid] 88 mcg PO DAILY 10/28/16 Losartan Potassium 25 mg PO DAILY 10/28/16 Tamsulosin HCl [Flomax] 0.4 mg PO QHS 10/28/16 Furosemide [Lasix] 20 mg PO DINNER 07/21/17 Sertraline HCl [Zoloft] 50 mg PO DAILY 07/21/17 Ferrous Sulfate 325 mg PO BIDCM #60 tab 07/28/17 Potassium Chloride [Klor-Con M10] 10 meq PO BID #60 tab.er.prt 07/28/17 Warfarin [Coumadin] 3 mg PO SuTuThSa@1700 #36 tab 07/28/17 - Family History Maternal - - Patient's father at the age of 70 from a myocardial infarction. Patient's mother at age of 75 with a history of cerebrovascular accident. 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 Lives: Spouse/ Significant Other Smoking Status: Former smoker Tobacco Use: Non-smoker Alcohol: None Drugs: None Review of Systems Constitutional: Denies: Chills, Fever, Weight Change Eyes: Denies: Pain, Vision Change HEENT: Denies: Difficulty Hearing, Difficulty Swallowing, Sinus Congestion Cardiovascular: Denies: Chest Pain, Palpitations Respiratory: Denies: Cough, Shortness of Breath Gastrointestinal: Denies: Diarrhea, Nausea, Vomiting Genitourinary: Denies: Dysuria, Hematuria Endocrine: Denies: Heat/ Cold Intolerance, Polydipsia, Polyuria Hematologic/ Lymphatic: Denies: Easy Bruising, Easy Bleeding - Physical Exam Vital Signs Temp Pulse Resp BP 97.5 F L 65 16 130/59 H 09/01/17 16:23 09/01/17 16:23 09/01/17 16:23 09/01/17 16:23 General: Alert, Oriented x3, Cooperative, No apparent distress, Well developed, Well nourished HEENT: Atraumatic, PERRLA, EOMI, Normocephalic Oral: Moist Mucosa Neck: Supple, No JVD, Negative Carotid Bruits, Negative Hepatojugular Reflux, No Nodes, No Nuchal Rigidity, Trachea Midline Lungs: Clear to auscultation, Normal air movement, No rhonchi, No wheeze, No rales Cardiovascular: Regular rate, Regular Rhythm, Normal S1, Normal S2, No murmurs Abdomen: Soft, Non Tender, Non-Distended Extremities: No clubbing, No cyanosis, No edema, No Calf Tenderness, - - Multiple ulcerations are noted on the right lower extremity. There are 2 ulcerations on the right posterior calf and ulceration on the right heel, each of which contains nonviable and necrotic tissue. In addition, there are necrotic ulcerations on the dorsum of the right second and third toe. There are several other small ulcerations, which are generally small and superficial in nature, and demonstrate no evidence of significant bioburden or necrosis. Skin: No rashes Wound Measurements and Assessment WC - Nurse 1 - General Ulcer Measurement Start: 08/28/17 10:41 Freq: Status: Active Protocol: Activity Type Activity Date Activity User E-Sign Co-Sign Detail Recorded Client Recorded Date Recorded By Document 09/01/17 16:23 CA [id number] 09/01/17 16:39 CA 09/01/17 16:23 Wound Center Nurse 1 [Ulcer Assessment] #5 R 3rd Toe -Current Size (cm) - Length 0.8 -Current Size (cm) - Width 0.8 -Current Size (cm) - Depth 0.1 -Total Square Cm 0.64 -Photo Taken No -Epithelialization None Present -Tunneling No -Undermining/Tunneling No -Circular Undermining No -Exudate Amt None Present (0 %) -Wound Margin Flat & Intact -Granulation Amt None Present (0 %) -Slough/Fibrin Yes -Necrosis Amt Large (67-100%) -Necrotic Tissue Type Adherent Slough -Structure Exposed N/A -Texture (Desi-wound Skin Appearance) Assessed -Moisture (Desi-wound Skin Appearance Assessed ) Dry/Scaly -Color (Desi-wound Skin Appearance) Assessed -Temperature (Desi-wound Skin No Abnormality Appearance) (Pt Warm) -Ulcer Cleansing Rinsed/ Irrigated with Saline -Anesthetic Used 4% Lidocaine Solution #4 R 2nd Toe -Current Size (cm) - Length 0.9 -Current Size (cm) - Width 1.5 -Current Size (cm) - Depth 0.1 -Total Square Cm 1.35 -Photo Taken No -Epithelialization Small 1-33% -Tunneling No -Undermining/Tunneling No -Circular Undermining No -Exudate Amt Small (1-33%) -Granulation Amt Small (1-33%) -Granulation Quality [place] -Slough/Fibrin Yes -Necrosis Amt Large (67-100%) -Necrotic Tissue Type Adherent Slough -Texture (Desi-wound Skin Appearance) Assessed -Moisture (Desi-wound Skin Appearance Assessed ) Dry/Scaly -Color (Desi-wound Skin Appearance) Assessed -Temperature (Desi-wound Skin No Abnormality Appearance) (Pt Warm) -Ulcer Cleansing Rinsed/ Irrigated with Saline -Anesthetic Used 4% Lidocaine Solution #3 R Heel -Current Size (cm) - Length 0.9 -Current Size (cm) - Width 1.1 -Current Size (cm) - Depth 0.1 -Total Square Cm 0.99 -Photo Taken No -Epithelialization None Present -Tunneling No -Undermining/Tunneling No -Circular Undermining No -Granulation Amt None Present (0 %) -Slough/Fibrin Yes -Necrosis Amt Large (67-100%) -Necrotic Tissue Type Eschar -Texture (Desi-wound Skin Appearance) Assessed -Moisture (Desi-wound Skin Appearance Assessed ) Dry/Scaly -Color (Desi-wound Skin Appearance) Assessed -Ulcer Cleansing Rinsed/ Irrigated with Saline -Anesthetic Used 4% Lidocaine Solution #2R Post Calf Inf. Cluster -Current Size (cm) - Length 2.7 -Current Size (cm) - Width 1.5 -Current Size (cm) - Depth 0.1 -Total Square Cm 4.05 -Photo Taken No -Epithelialization Small 1-33% -Tunneling No -Undermining/Tunneling No -Circular Undermining No -Exudate Amt None Present (0 %) -Wound Margin Flat & Intact -Granulation Amt Large (67-100%) -Granulation Quality Red -Slough/Fibrin Yes -Necrosis Amt Small (1-33%) -Necrotic Tissue Type Eschar -Texture (Desi-wound Skin Appearance) Assessed -Moisture (Desi-wound Skin Appearance Assessed ) Dry/Scaly -Color (Desi-wound Skin Appearance) Assessed -Temperature (Desi-wound Skin No Abnormality Appearance) (Pt Warm) -Ulcer Cleansing Rinsed/ Irrigated with Saline -Anesthetic Used 4% Lidocaine Solution #1 R Post Calf Sup -Current Size (cm) - Length 2 -Current Size (cm) - Width 2.1 -Current Size (cm) - Depth 0.1 -Total Square Cm 4.2 -Photo Taken No -Epithelialization Small 1-33% -Exudate Amt None Present (0 %) -Wound Margin Flat & Intact -Granulation Amt Small (1-33%) -Granulation Quality Red -Slough/Fibrin Yes -Necrosis Amt Large (67-100%) -Necrotic Tissue Type Adherent Slough -Texture (Desi-wound Skin Appearance) Assessed -Moisture (Desi-wound Skin Appearance Assessed ) Dry/Scaly -Color (Desi-wound Skin Appearance) Assessed -Temperature (Desi-wound Skin No Abnormality Appearance) (Pt Warm) -Ulcer Cleansing Rinsed/ Irrigated with Saline -Anesthetic Used 4% Lidocaine Solution [Edema Assessment] -Right Calf (cm) 36 -Right Ankle (cm) 22 -Left Calf (cm) 35.5 -Left Ankle (cm) 22 WC - Nurse 2 - General Ulcer CM Notes Start: 08/28/17 10:41 Freq: Status: Active Protocol: Activity Type Activity Date Activity User E-Sign Co-Sign Detail Recorded Client Recorded Date Recorded By Document 09/01/17 17:22 [id number] 09/01/17 17:32 09/01/17 17:22 Wound Center Nurse 2 [Procedure/Treatment] #6 R-MEDIAL LOWER LEG -Time 17:28 -Correct Patient Yes -Correct Side, Site, Position Yes -Correct Procedure Yes -Procedure Performed Yes -Type of Procedure Debridement -Clinical Debridement Subcutaneous -Post Debridement Size (cm) - Length 0.4 -Post Debridement Size (cm) - Width 0.4 -Post Debridement Size (cm) - Depth 0.1 -Total Square Cm 0.16 -Wound/Ulcer Outcome Not Healed -Ulcer Cleansing Rinsed/ Irrigated with Saline -Foul Odor after Cleansing No -Bioengineered Tissue No -Topical Lidocaine (%) 4 -Lidocaine (ml) 5 -Bleeding Controlled with NA -Treatment Response Procedure Tolerated Well #5 R 3rd Toe -Time 17:22 -Correct Patient Yes -Correct Side, Site, Position Yes -Correct Procedure Yes -Procedure Performed Yes -Type of Procedure Debridement -Clinical Debridement Subcutaneous -Post Debridement Size (cm) - Length 0.8 -Post Debridement Size (cm) - Width 0.9 -Post Debridement Size (cm) - Depth 0.2 -Total Square Cm 0.72 -Wound/Ulcer Outcome Not Healed -Ulcer Cleansing Not Cleansed -Foul Odor after Cleansing No -Bioengineered Tissue No -Bleeding Controlled with NA -Treatment Response Procedure Tolerated Well #4 R 2nd Toe -Time 17:22 -Correct Patient Yes -Correct Side, Site, Position Yes -Correct Procedure Yes -Procedure Performed Yes -Type of Procedure Debridement -Clinical Debridement Subcutaneous -Post Debridement Size (cm) - Length 0.7 -Post Debridement Size (cm) - Width 0.8 -Post Debridement Size (cm) - Depth 0.2 -Total Square Cm 0.56 -Wound/Ulcer Outcome Not Healed -Ulcer Cleansing Not Cleansed -Foul Odor after Cleansing No -Bioengineered Tissue No -Bleeding Controlled with NA -Treatment Response Procedure Tolerated Well #3 R Heel -Time 17:22 -Correct Patient Yes -Correct Side, Site, Position Yes -Correct Procedure Yes -Procedure Performed Yes -Type of Procedure Debridement -Clinical Debridement Subcutaneous -Post Debridement Size (cm) - Length 0.9 -Post Debridement Size (cm) - Width 1.1 -Post Debridement Size (cm) - Depth 0.1 -Total Square Cm 0.99 -Wound/Ulcer Outcome Not Healed -Ulcer Cleansing Not Cleansed -Foul Odor after Cleansing No -Bioengineered Tissue No -Bleeding Controlled with NA -Treatment Response Procedure Tolerated Well #2R Post Calf Inf. Cluster -Time 17:23 -Correct Patient Yes -Correct Side, Site, Position Yes -Correct Procedure Yes -Procedure Performed Yes -Type of Procedure Debridement -Clinical Debridement Subcutaneous -Post Debridement Size (cm) - Length 3.9 -Post Debridement Size (cm) - Width 1.6 -Post Debridement Size (cm) - Depth 0.1 -Total Square Cm 6.24 -Wound/Ulcer Outcome Not Healed -Ulcer Cleansing Not Cleansed -Foul Odor after Cleansing No -Bioengineered Tissue No -Bleeding Controlled with NA -Treatment Response Procedure Tolerated Well #1 R Post Calf Sup -Time 17:23 -Correct Patient Yes -Correct Side, Site, Position Yes -Correct Procedure Yes -Procedure Performed Yes -Type of Procedure Debridement -Clinical Debridement Subcutaneous -Post Debridement Size (cm) - Length 1.8 -Post Debridement Size (cm) - Width 1.9 -Post Debridement Size (cm) - Depth 0.2 -Total Square Cm 3.42 -Wound/Ulcer Outcome Not Healed -Ulcer Cleansing Not Cleansed -Foul Odor after Cleansing No -Bioengineered Tissue No -Bleeding Controlled with NA -Treatment Response Procedure Tolerated Well [See Physician Procedure note for Specifics] Pain Scale: 0-10 Numeric [Pain] -Is Patient Pain Free? Yes Neurological: Cranial nerves II-XII grossly intact, Neuro grossly intact, - - Patient suffers from a hearing deficit. Psych/Mental Status: Normal Affect, Appropriate, Alert and oriented to time, place, person, mood and affect Debridement Note Post-Debridement Measurements/Treatment WC - Nurse 2 - General Ulcer CM Notes Start: 08/28/17 10:41 Freq: Status: Active Protocol: Activity Type Activity Date Activity User E-Sign Co-Sign Detail Recorded Client Recorded Date Recorded By Document 09/01/17 17:22 [id number] 09/01/17 17:32 09/01/17 17:22 Wound Center Nurse 2 #6 R-MEDIAL LOWER LEG -Time 17:28 -Correct Patient Yes -Correct Side, Site, Position Yes -Correct Procedure Yes -Procedure Performed Yes -Type of Procedure Debridement -Clinical Debridement Subcutaneous -Post Debridement Size (cm) - Length 0.4 -Post Debridement Size (cm) - Width 0.4 -Post Debridement Size (cm) - Depth 0.1 -Total Square Cm 0.16 -Wound/Ulcer Outcome Not Healed -Ulcer Cleansing Rinsed/ Irrigated with Saline -Foul Odor after Cleansing No -Bioengineered Tissue No -Topical Lidocaine (%) 4 -Lidocaine (ml) 5 -Bleeding Controlled with NA -Treatment Response Procedure Tolerated Well #5 R 3rd Toe -Time 17:22 -Correct Patient Yes -Correct Side, Site, Position Yes -Correct Procedure Yes -Procedure Performed Yes -Type of Procedure Debridement -Clinical Debridement Subcutaneous -Post Debridement Size (cm) - Length 0.8 -Post Debridement Size (cm) - Width 0.9 -Post Debridement Size (cm) - Depth 0.2 -Total Square Cm 0.72 -Wound/Ulcer Outcome Not Healed -Ulcer Cleansing Not Cleansed -Foul Odor after Cleansing No -Bioengineered Tissue No -Bleeding Controlled with NA -Treatment Response Procedure Tolerated Well #4 R 2nd Toe -Time 17:22 -Correct Patient Yes -Correct Side, Site, Position Yes -Correct Procedure Yes -Procedure Performed Yes -Type of Procedure Debridement -Clinical Debridement Subcutaneous -Post Debridement Size (cm) - Length 0.7 -Post Debridement Size (cm) - Width 0.8 -Post Debridement Size (cm) - Depth 0.2 -Total Square Cm 0.56 -Wound/Ulcer Outcome Not Healed -Ulcer Cleansing Not Cleansed -Foul Odor after Cleansing No -Bioengineered Tissue No -Bleeding Controlled with NA -Treatment Response Procedure Tolerated Well #3 R Heel -Time 17:22 -Correct Patient Yes -Correct Side, Site, Position Yes -Correct Procedure Yes -Procedure Performed Yes -Type of Procedure Debridement -Clinical Debridement Subcutaneous -Post Debridement Size (cm) - Length 0.9 -Post Debridement Size (cm) - Width 1.1 -Post Debridement Size (cm) - Depth 0.1 -Total Square Cm 0.99 -Wound/Ulcer Outcome Not Healed -Ulcer Cleansing Not Cleansed -Foul Odor after Cleansing No -Bioengineered Tissue No -Bleeding Controlled with NA -Treatment Response Procedure Tolerated Well #2R Post Calf Inf. Cluster -Time 17:23 -Correct Patient Yes -Correct Side, Site, Position Yes -Correct Procedure Yes -Procedure Performed Yes -Type of Procedure Debridement -Clinical Debridement Subcutaneous -Post Debridement Size (cm) - Length 3.9 -Post Debridement Size (cm) - Width 1.6 -Post Debridement Size (cm) - Depth 0.1 -Total Square Cm 6.24 -Wound/Ulcer Outcome Not Healed -Ulcer Cleansing Not Cleansed -Foul Odor after Cleansing No -Bioengineered Tissue No -Bleeding Controlled with NA -Treatment Response Procedure Tolerated Well #1 R Post Calf Sup -Time 17:23 -Correct Patient Yes -Correct Side, Site, Position Yes -Correct Procedure Yes -Procedure Performed Yes -Type of Procedure Debridement -Clinical Debridement Subcutaneous -Post Debridement Size (cm) - Length 1.8 -Post Debridement Size (cm) - Width 1.9 -Post Debridement Size (cm) - Depth 0.2 -Total Square Cm 3.42 -Wound/Ulcer Outcome Not Healed -Ulcer Cleansing Not Cleansed -Foul Odor after Cleansing No -Bioengineered Tissue No -Bleeding Controlled with NA -Treatment Response Procedure Tolerated Well Pain Scale: 0-10 Numeric Is Patient Pain Free? Yes Laterality: Right - Posterior calf ?2 Type of Debridement: Excisional debridement Anesthesia Used: 4% Lidocaine Solution Depth: Down to and including healthy tissue, in the subcutaneous layer Percentage of wound debrided: 100 Instrument Used: 5mm curette Severity: Fat Layer Exposed Amount of bleeding with debridement: Mild Bleeding Controlled with: Compression and gauze Patient tolerated procedure well - Additional Wound Laterality: Right - Second toe dorsum Type of Debridement: Excisional debridement Anesthesia Used: 4% Lidocaine Solution Depth: Down to and including healthy tissue, in the subcutaneous layer Percentage of wound debrided: 100 Instrument Used: 5mm curette Severity: Fat Layer Exposed Amount of bleeding with debridement: Mild Bleeding Controlled with: Compression and gauze Patient tolerated procedure: Patient tolerated procedure well - Additional Wound Laterality: Right - Third toe dorsum Type of Debridement: Excisional debridement Anesthesia Used: 4% Lidocaine Solution Depth: Down to and including healthy tissue, in the subcutaneous layer Percentage of wound debrided: 100 Instrument Used: 5mm curette Severity: Fat Layer Exposed Amount of bleeding with debridement: Mild Bleeding Controlled with: Compression and gauze Patient tolerated procedure: Patient tolerated procedure well - Additional Wound Laterality: Right - Heel Type of Debridement: Excisional debridement Anesthesia Used: 4% Lidocaine Solution Depth: Down to and including healthy tissue, in the subcutaneous layer Percentage of wound debrided: 100 Instrument Used: 5mm curette Severity: Fat Layer Exposed Amount of bleeding with debridement: Mild Bleeding Controlled with: Compression and gauze Patient tolerated procedure: Patient tolerated procedure well Assessment/Plan Active Problems Bilateral leg ulcer (Acute) Ulcer of right lower extremity (Chronic) Ulcer of right foot (Chronic) PAD (peripheral artery disease) (Chronic) PAD (peripheral artery disease) (Chronic) Assessment: This is a 72-year-old male with severe peripheral arterial occlusive disease, who recently underwent revascularization of the right lower extremity. He has recently presented with ulcerations of the right calf and the right foot. The right foot ulcerations appear to be pressure related, likely due to swelling of his right foot while wearing rigid shoes. Several of the ulcerations demonstrate roberto necrotic material. Patient has other pre-existing comorbid conditions, which have been documented above. Currently, we may consider an x-ray of the right foot, to determine whether there is any sign of osteomyelitis. Plan: The patient has been advised to keep his legs elevated, to heart level or higher. This is an effort to prevent swelling and edema in the lower extremities, as occurred only several weeks ago when the patient was sitting for long periods of time. The patient appears to have very little understanding or insight into his medical problems. His , who is at the bedside, appears to be more enlightened. Given the patient's recent revascularization procedure, we are to avoid compression to the lower extremities at this time. It is hoped that elevation and activity will help prevent swelling and edema. We are to implement the use of collagenase Santyl to the ulcerations in the right lower extremity which demonstrate roberto necrosis. Collagen hydrogel will be used on the other ulcerations which are more superficial in nature, and smaller in size. The patient has been encouraged to wear properly fitted footwear. Patient will return in 1 week for reevaluation. Patient's recent laboratory results have been reviewed, with results as follows: White blood count 8.9, hemoglobin 8.9, hematocrit 30.1, platelets 145,000 sodium 137, calcium 3.5, chloride 99, BUN 15, creatinine 0.88, glucose 85, hemoglobin A1c 7.3, calcium 7.8, iron 18, TIBC 356, AST 35, ALT 24, alkaline phosphatase 276, total protein 6.5, albumin 2.3. A well-balanced and nutritious diet has been recommended. It is known that the patient suffers from blood loss by means of the GI tract. He is currently under the care of other physicians in this regard. Patient will return in 1 week for reassessment. Note was generated with [employer] dictation software. It may contain incorrect words, spelling, and punctuation that were not noted in checking the note before signing.
--- NOTE | 2017-09-01 18:02 | HP.PCM_ITS ---
(1) GI bleeding Status: Chronic Current Visit: No Code(s): K92.2 - Gastrointestinal hemorrhage, unspecified (2) Hearing deficit Status: Chronic Current Visit: No Code(s): H91.90 - Unspecified hearing loss , unspecified ear (3) Hypertension Status: Chronic Current Visit: No Code(s): I10 - Essential (primary) hypertension (4) A-fib Status: Chronic Current Visit: No Code(s): I48.91 - Unspecified atrial fibrillation (5) Ulcer of right lower extremity Status: Chronic Current Visit: Yes Qualifiers: Non-pressure ulcer stage: with fat layer exposed Qualified Code(s): L97.912 - Non-pressure chronic ulcer of unspecified part of right lower leg with fat layer exposed Code(s): L97.919 - Non-pressure chronic ulcer of unspecified part of right lower leg with unspecified severity (6) Ulcer of right foot Status: Chronic Current Visit: Yes Qualifiers: Non-pressure ulcer stage: with fat layer exposed Qualified Code(s): L97.512 - Non-pressure chronic ulcer of other part of right foot with fat layer exposed Code(s): L97.519 - Non-pressure chronic ulcer of other part of right foot with unspecified severity (7) PAD (peripheral artery disease) Status: Chronic Current Visit: Yes Code(s): I73.9 - Peripheral vascular disease, unspecified (8) Aortic stenosis Status: Chronic Current Visit: No Code(s): I35.0 - Nonrheumatic aortic ( valve) stenosis (9) BPH (benign prostatic hyperplasia) Status: Chronic Current Visit: No Code(s): N40.0 - Benign prostatic hyperplasia without lower urinary tract symptoms (10) CAD (coronary artery disease) Status: Chronic Current Visit: No Code(s): I25.10 - Atherosclerotic heart disease of [place] coronary artery without angina pectoris (11) CVA (cerebral vascular accident) Status: Chronic Current Visit: No Code(s): I63.9 - Cerebral infarction, unspecified (12) Chronic atrial fibrillation Status: Chronic Current Visit: No Code(s): I48.2 - Chronic atrial fibrillation (13) Hypothyroidism Status: Chronic Current Visit: No Code(s): E03.9 - Hypothyroidism, unspecified (14) Iron deficiency anemia Status: Chronic Current Visit: No Code(s): D50.9 - Iron deficiency anemia, unspecified (15) Pulmonary hypertension Status: Chronic Current Visit: No Code(s): I27.20 - Pulmonary hypertension, unspecified (16) Stage III chronic kidney disease Status: Chronic Current Visit: No Code(s): N18.3 - Chronic kidney disease, stage 3 (moderate) (17) Status post coronary artery bypass graft Status: Chronic Current Visit: No Code(s): Z95.1 - Presence of aortocoronary bypass graft (18) Systolic congestive heart failure Status: Chronic Current Visit: No Code(s): I50.20 - Unspecified systolic ( congestive) heart failure (19) PAD (peripheral artery disease) Status: Chronic Current Visit: Yes Code(s): I73.9 - Peripheral vascular disease, unspecified History of Present Illness Date of Service: 09/01/17 Chief Complaint: Ulcerations of the right lower extremity and right foot History of Wound: This is a 72-year-old male with multiple medical problems. He presented recently with ulcerations on the right distal lower extremity and on the right foot. The patient, he was accompanied by his , is uncertain as to the etiology of these ulcerations. They have been present for approximately 4-6 weeks. Approximately 6 weeks ago, the patient began to sleep in an upright sitting position. He spent most of his day and night sitting idlely. As result, his lower extremities experience significant swelling and edema. It is during this period of time that he developed ulcerations in the right lower extremity and right foot. It is suspected that the swelling, in conjunction with his shoes, resulted in pressure necrosis of his foot and toes, with resultant ulcerations developing on the dorsum of the right second and third toes. The swelling of the patient's foot, within the rigid foot wear, likely resulted in her ulcerations. Patient also has abrasions on the right calf, etiology of which is uncertain. In recent weeks, the patient has been sleeping in a dominant position at night. He is not very mobile or ambulatory, and requires the use of a walker for ambulation. He has no history of thrombophlebitis in the past. Review of patient records reveals evidence of noncompliance with medical recommendations in the past. It is also noted that the patient suffers from peripheral arterial occlusive disease, and underwent balloon angioplasty of the right popliteal artery by Dr. Zach Lowe at [facility] on August 20, 2017. Past Medical History Past Medical History: Chronic Problems GI bleeding (Chronic) Hearing deficit (Chronic) Hypertension (Chronic) A-fib (Chronic) Ulcer of right lower extremity (Chronic) Ulcer of right foot (Chronic) PAD (peripheral artery disease) (Chronic) Systolic congestive heart failure (Chronic) Aortic stenosis (Chronic) Pulmonary hypertension (Chronic) Ischemic cardiomyopathy (Chronic) Iron deficiency anemia (Chronic) BPH (benign prostatic hyperplasia) (Chronic) Splenomegaly (Chronic) Gallbladder sludge (Chronic) Fatty infiltration of liver (Chronic) PAD (peripheral artery disease) (Chronic) Stage III chronic kidney disease (Chronic) Chronic atrial fibrillation (Chronic) Status post coronary artery bypass graft (Chronic) Decubitus ulcer of sacral area (Chronic) Hypothyroidism (Chronic) CVA (cerebral vascular accident) (Chronic) CAD (coronary artery disease) (Chronic) Past Medical History: The patient has a history of congestive heart failure, cerebrovascular accident, hypertension, hearing deficit, gastrointestinal bleeding, atrial fibrillation, and hypothyroidism. His history is negative for myocardial infarction, diabetes mellitus, pulmonary disease, and hyperlipidemia. Surgical History: coronary bypass surgery, total hip arthroplasty - Left; bilateral carotid endarterectomy Allergies/Adverse Reactions: Allergies latex Allergy (Verified 08/19/17 08:39) Rash LEEANN Inhibitors Adverse Reaction (Verified 08/19/17 08:39) Other Home Medications: Ambulatory Orders Medication Instructions Recorded Amiodarone HCl 200 mg PO DAILY 10/28/16 Atorvastatin Calcium [Lipitor] 20 mg PO QHS 10/28/16 Carvedilol [Coreg (Beta Kaycee)] 12.5 mg PO BID 10/28/16 Furosemide [Lasix] 40 mg PO DAILY 10/28/16 Levothyroxine [Synthroid] 88 mcg PO DAILY 10/28/16 Losartan Potassium 25 mg PO DAILY 10/28/16 Tamsulosin HCl [Flomax] 0.4 mg PO QHS 10/28/16 Furosemide [Lasix] 20 mg PO DINNER 07/21/17 Sertraline HCl [Zoloft] 50 mg PO DAILY 07/21/17 Ferrous Sulfate 325 mg PO BIDCM #60 tab 07/28/17 Potassium Chloride [Klor-Con M10] 10 meq PO BID #60 tab.er.prt 07/28/17 Warfarin [Coumadin] 3 mg PO SuTuThSa@1700 #36 tab 07/28/17 - Family History Maternal - - Patient's father at the age of 70 from a myocardial infarction. Patient's mother at age of 75 with a history of cerebrovascular accident. 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 Lives: Spouse/ Significant Other Smoking Status: Former smoker Tobacco Use: Non-smoker Alcohol: None Drugs: None Review of Systems Constitutional: Denies: Chills, Fever, Weight Change Eyes: Denies: Pain, Vision Change HEENT: Denies: Difficulty Hearing, Difficulty Swallowing, Sinus Congestion Cardiovascular: Denies: Chest Pain, Palpitations Respiratory: Denies: Cough, Shortness of Breath Gastrointestinal: Denies: Diarrhea, Nausea, Vomiting Genitourinary: Denies: Dysuria, Hematuria Endocrine: Denies: Heat/ Cold Intolerance, Polydipsia, Polyuria Hematologic/ Lymphatic: Denies: Easy Bruising, Easy Bleeding - Physical Exam Vital Signs Temp Pulse Resp BP 97.5 F L 65 16 130/59 H 09/01/17 16:23 09/01/17 16:23 09/01/17 16:23 09/01/17 16:23 General: Alert, Oriented x3, Cooperative, No apparent distress, Well developed, Well nourished HEENT: Atraumatic, PERRLA, EOMI, Normocephalic Oral: Moist Mucosa Neck: Supple, No JVD, Negative Carotid Bruits, Negative Hepatojugular Reflux, No Nodes, No Nuchal Rigidity, Trachea Midline Lungs: Clear to auscultation, Normal air movement, No rhonchi, No wheeze, No rales Cardiovascular: Regular rate, Regular Rhythm, Normal S1, Normal S2, No murmurs Abdomen: Soft, Non Tender, Non-Distended Extremities: No clubbing, No cyanosis, No edema, No Calf Tenderness, - - Multiple ulcerations are noted on the right lower extremity. There are 2 ulcerations on the right posterior calf and ulceration on the right heel, each of which contains nonviable and necrotic tissue. In addition, there are necrotic ulcerations on the dorsum of the right second and third toe. There are several other small ulcerations, which are generally small and superficial in nature, and demonstrate no evidence of significant bioburden or necrosis. Skin: No rashes Wound Measurements and Assessment WC - Nurse 1 - General Ulcer Measurement Start: 08/28/17 10:41 Freq: Status: Active Protocol: Activity Type Activity Date Activity User E-Sign Co-Sign Detail Recorded Client Recorded Date Recorded By Document 09/01/17 16:23 NE [id number] 09/01/17 16:39 NE 09/01/17 16:23 Wound Center Nurse 1 [Ulcer Assessment] #5 R 3rd Toe -Current Size (cm) - Length 0.8 -Current Size (cm) - Width 0.8 -Current Size (cm) - Depth 0.1 -Total Square Cm 0.64 -Photo Taken No -Epithelialization None Present -Tunneling No -Undermining/Tunneling No -Circular Undermining No -Exudate Amt None Present (0 %) -Wound Margin Flat & Intact -Granulation Amt None Present (0 %) -Slough/Fibrin Yes -Necrosis Amt Large (67-100%) -Necrotic Tissue Type Adherent Slough -Structure Exposed N/A -Texture (Desi-wound Skin Appearance) Assessed -Moisture (Desi-wound Skin Appearance Assessed ) Dry/Scaly -Color (Desi-wound Skin Appearance) Assessed -Temperature (Desi-wound Skin No Abnormality Appearance) (Pt Warm) -Ulcer Cleansing Rinsed/ Irrigated with Saline -Anesthetic Used 4% Lidocaine Solution #4 R 2nd Toe -Current Size (cm) - Length 0.9 -Current Size (cm) - Width 1.5 -Current Size (cm) - Depth 0.1 -Total Square Cm 1.35 -Photo Taken No -Epithelialization Small 1-33% -Tunneling No -Undermining/Tunneling No -Circular Undermining No -Exudate Amt Small (1-33%) -Granulation Amt Small (1-33%) -Granulation Quality [place] -Slough/Fibrin Yes -Necrosis Amt Large (67-100%) -Necrotic Tissue Type Adherent Slough -Texture (Desi-wound Skin Appearance) Assessed -Moisture (Desi-wound Skin Appearance Assessed ) Dry/Scaly -Color (Desi-wound Skin Appearance) Assessed -Temperature (Desi-wound Skin No Abnormality Appearance) (Pt Warm) -Ulcer Cleansing Rinsed/ Irrigated with Saline -Anesthetic Used 4% Lidocaine Solution #3 R Heel -Current Size (cm) - Length 0.9 -Current Size (cm) - Width 1.1 -Current Size (cm) - Depth 0.1 -Total Square Cm 0.99 -Photo Taken No -Epithelialization None Present -Tunneling No -Undermining/Tunneling No -Circular Undermining No -Granulation Amt None Present (0 %) -Slough/Fibrin Yes -Necrosis Amt Large (67-100%) -Necrotic Tissue Type Eschar -Texture (Desi-wound Skin Appearance) Assessed -Moisture (Desi-wound Skin Appearance Assessed ) Dry/Scaly -Color (Desi-wound Skin Appearance) Assessed -Ulcer Cleansing Rinsed/ Irrigated with Saline -Anesthetic Used 4% Lidocaine Solution #2R Post Calf Inf. Cluster -Current Size (cm) - Length 2.7 -Current Size (cm) - Width 1.5 -Current Size (cm) - Depth 0.1 -Total Square Cm 4.05 -Photo Taken No -Epithelialization Small 1-33% -Tunneling No -Undermining/Tunneling No -Circular Undermining No -Exudate Amt None Present (0 %) -Wound Margin Flat & Intact -Granulation Amt Large (67-100%) -Granulation Quality Red -Slough/Fibrin Yes -Necrosis Amt Small (1-33%) -Necrotic Tissue Type Eschar -Texture (Desi-wound Skin Appearance) Assessed -Moisture (Desi-wound Skin Appearance Assessed ) Dry/Scaly -Color (Desi-wound Skin Appearance) Assessed -Temperature (Desi-wound Skin No Abnormality Appearance) (Pt Warm) -Ulcer Cleansing Rinsed/ Irrigated with Saline -Anesthetic Used 4% Lidocaine Solution #1 R Post Calf Sup -Current Size (cm) - Length 2 -Current Size (cm) - Width 2.1 -Current Size (cm) - Depth 0.1 -Total Square Cm 4.2 -Photo Taken No -Epithelialization Small 1-33% -Exudate Amt None Present (0 %) -Wound Margin Flat & Intact -Granulation Amt Small (1-33%) -Granulation Quality Red -Slough/Fibrin Yes -Necrosis Amt Large (67-100%) -Necrotic Tissue Type Adherent Slough -Texture (Desi-wound Skin Appearance) Assessed -Moisture (Desi-wound Skin Appearance Assessed ) Dry/Scaly -Color (Desi-wound Skin Appearance) Assessed -Temperature (Desi-wound Skin No Abnormality Appearance) (Pt Warm) -Ulcer Cleansing Rinsed/ Irrigated with Saline -Anesthetic Used 4% Lidocaine Solution [Edema Assessment] -Right Calf (cm) 36 -Right Ankle (cm) 22 -Left Calf (cm) 35.5 -Left Ankle (cm) 22 WC - Nurse 2 - General Ulcer CM Notes Start: 08/28/17 10:41 Freq: Status: Active Protocol: Activity Type Activity Date Activity User E-Sign Co-Sign Detail Recorded Client Recorded Date Recorded By Document 09/01/17 17:22 [id number] 09/01/17 17:32 09/01/17 17:22 Wound Center Nurse 2 [Procedure/Treatment] #6 R-MEDIAL LOWER LEG -Time 17:28 -Correct Patient Yes -Correct Side, Site, Position Yes -Correct Procedure Yes -Procedure Performed Yes -Type of Procedure Debridement -Clinical Debridement Subcutaneous -Post Debridement Size (cm) - Length 0.4 -Post Debridement Size (cm) - Width 0.4 -Post Debridement Size (cm) - Depth 0.1 -Total Square Cm 0.16 -Wound/Ulcer Outcome Not Healed -Ulcer Cleansing Rinsed/ Irrigated with Saline -Foul Odor after Cleansing No -Bioengineered Tissue No -Topical Lidocaine (%) 4 -Lidocaine (ml) 5 -Bleeding Controlled with NA -Treatment Response Procedure Tolerated Well #5 R 3rd Toe -Time 17:22 -Correct Patient Yes -Correct Side, Site, Position Yes -Correct Procedure Yes -Procedure Performed Yes -Type of Procedure Debridement -Clinical Debridement Subcutaneous -Post Debridement Size (cm) - Length 0.8 -Post Debridement Size (cm) - Width 0.9 -Post Debridement Size (cm) - Depth 0.2 -Total Square Cm 0.72 -Wound/Ulcer Outcome Not Healed -Ulcer Cleansing Not Cleansed -Foul Odor after Cleansing No -Bioengineered Tissue No -Bleeding Controlled with NA -Treatment Response Procedure Tolerated Well #4 R 2nd Toe -Time 17:22 -Correct Patient Yes -Correct Side, Site, Position Yes -Correct Procedure Yes -Procedure Performed Yes -Type of Procedure Debridement -Clinical Debridement Subcutaneous -Post Debridement Size (cm) - Length 0.7 -Post Debridement Size (cm) - Width 0.8 -Post Debridement Size (cm) - Depth 0.2 -Total Square Cm 0.56 -Wound/Ulcer Outcome Not Healed -Ulcer Cleansing Not Cleansed -Foul Odor after Cleansing No -Bioengineered Tissue No -Bleeding Controlled with NA -Treatment Response Procedure Tolerated Well #3 R Heel -Time 17:22 -Correct Patient Yes -Correct Side, Site, Position Yes -Correct Procedure Yes -Procedure Performed Yes -Type of Procedure Debridement -Clinical Debridement Subcutaneous -Post Debridement Size (cm) - Length 0.9 -Post Debridement Size (cm) - Width 1.1 -Post Debridement Size (cm) - Depth 0.1 -Total Square Cm 0.99 -Wound/Ulcer Outcome Not Healed -Ulcer Cleansing Not Cleansed -Foul Odor after Cleansing No -Bioengineered Tissue No -Bleeding Controlled with NA -Treatment Response Procedure Tolerated Well #2R Post Calf Inf. Cluster -Time 17:23 -Correct Patient Yes -Correct Side, Site, Position Yes -Correct Procedure Yes -Procedure Performed Yes -Type of Procedure Debridement -Clinical Debridement Subcutaneous -Post Debridement Size (cm) - Length 3.9 -Post Debridement Size (cm) - Width 1.6 -Post Debridement Size (cm) - Depth 0.1 -Total Square Cm 6.24 -Wound/Ulcer Outcome Not Healed -Ulcer Cleansing Not Cleansed -Foul Odor after Cleansing No -Bioengineered Tissue No -Bleeding Controlled with NA -Treatment Response Procedure Tolerated Well #1 R Post Calf Sup -Time 17:23 -Correct Patient Yes -Correct Side, Site, Position Yes -Correct Procedure Yes -Procedure Performed Yes -Type of Procedure Debridement -Clinical Debridement Subcutaneous -Post Debridement Size (cm) - Length 1.8 -Post Debridement Size (cm) - Width 1.9 -Post Debridement Size (cm) - Depth 0.2 -Total Square Cm 3.42 -Wound/Ulcer Outcome Not Healed -Ulcer Cleansing Not Cleansed -Foul Odor after Cleansing No -Bioengineered Tissue No -Bleeding Controlled with NA -Treatment Response Procedure Tolerated Well [See Physician Procedure note for Specifics] Pain Scale: 0-10 Numeric [Pain] -Is Patient Pain Free? Yes Neurological: Cranial nerves II-XII grossly intact, Neuro grossly intact, - - Patient suffers from a hearing deficit. Psych/Mental Status: Normal Affect, Appropriate, Alert and oriented to time, place, person, mood and affect Debridement Note Post-Debridement Measurements/Treatment WC - Nurse 2 - General Ulcer CM Notes Start: 08/28/17 10:41 Freq: Status: Active Protocol: Activity Type Activity Date Activity User E-Sign Co-Sign Detail Recorded Client Recorded Date Recorded By Document 09/01/17 17:22 [id number] 09/01/17 17:32 09/01/17 17:22 Wound Center Nurse 2 #6 R-MEDIAL LOWER LEG -Time 17:28 -Correct Patient Yes -Correct Side, Site, Position Yes -Correct Procedure Yes -Procedure Performed Yes -Type of Procedure Debridement -Clinical Debridement Subcutaneous -Post Debridement Size (cm) - Length 0.4 -Post Debridement Size (cm) - Width 0.4 -Post Debridement Size (cm) - Depth 0.1 -Total Square Cm 0.16 -Wound/Ulcer Outcome Not Healed -Ulcer Cleansing Rinsed/ Irrigated with Saline -Foul Odor after Cleansing No -Bioengineered Tissue No -Topical Lidocaine (%) 4 -Lidocaine (ml) 5 -Bleeding Controlled with NA -Treatment Response Procedure Tolerated Well #5 R 3rd Toe -Time 17:22 -Correct Patient Yes -Correct Side, Site, Position Yes -Correct Procedure Yes -Procedure Performed Yes -Type of Procedure Debridement -Clinical Debridement Subcutaneous -Post Debridement Size (cm) - Length 0.8 -Post Debridement Size (cm) - Width 0.9 -Post Debridement Size (cm) - Depth 0.2 -Total Square Cm 0.72 -Wound/Ulcer Outcome Not Healed -Ulcer Cleansing Not Cleansed -Foul Odor after Cleansing No -Bioengineered Tissue No -Bleeding Controlled with NA -Treatment Response Procedure Tolerated Well #4 R 2nd Toe -Time 17:22 -Correct Patient Yes -Correct Side, Site, Position Yes -Correct Procedure Yes -Procedure Performed Yes -Type of Procedure Debridement -Clinical Debridement Subcutaneous -Post Debridement Size (cm) - Length 0.7 -Post Debridement Size (cm) - Width 0.8 -Post Debridement Size (cm) - Depth 0.2 -Total Square Cm 0.56 -Wound/Ulcer Outcome Not Healed -Ulcer Cleansing Not Cleansed -Foul Odor after Cleansing No -Bioengineered Tissue No -Bleeding Controlled with NA -Treatment Response Procedure Tolerated Well #3 R Heel -Time 17:22 -Correct Patient Yes -Correct Side, Site, Position Yes -Correct Procedure Yes -Procedure Performed Yes -Type of Procedure Debridement -Clinical Debridement Subcutaneous -Post Debridement Size (cm) - Length 0.9 -Post Debridement Size (cm) - Width 1.1 -Post Debridement Size (cm) - Depth 0.1 -Total Square Cm 0.99 -Wound/Ulcer Outcome Not Healed -Ulcer Cleansing Not Cleansed -Foul Odor after Cleansing No -Bioengineered Tissue No -Bleeding Controlled with NA -Treatment Response Procedure Tolerated Well #2R Post Calf Inf. Cluster -Time 17:23 -Correct Patient Yes -Correct Side, Site, Position Yes -Correct Procedure Yes -Procedure Performed Yes -Type of Procedure Debridement -Clinical Debridement Subcutaneous -Post Debridement Size (cm) - Length 3.9 -Post Debridement Size (cm) - Width 1.6 -Post Debridement Size (cm) - Depth 0.1 -Total Square Cm 6.24 -Wound/Ulcer Outcome Not Healed -Ulcer Cleansing Not Cleansed -Foul Odor after Cleansing No -Bioengineered Tissue No -Bleeding Controlled with NA -Treatment Response Procedure Tolerated Well #1 R Post Calf Sup -Time 17:23 -Correct Patient Yes -Correct Side, Site, Position Yes -Correct Procedure Yes -Procedure Performed Yes -Type of Procedure Debridement -Clinical Debridement Subcutaneous -Post Debridement Size (cm) - Length 1.8 -Post Debridement Size (cm) - Width 1.9 -Post Debridement Size (cm) - Depth 0.2 -Total Square Cm 3.42 -Wound/Ulcer Outcome Not Healed -Ulcer Cleansing Not Cleansed -Foul Odor after Cleansing No -Bioengineered Tissue No -Bleeding Controlled with NA -Treatment Response Procedure Tolerated Well Pain Scale: 0-10 Numeric Is Patient Pain Free? Yes Laterality: Right - Posterior calf ?2 Type of Debridement: Excisional debridement Anesthesia Used: 4% Lidocaine Solution Depth: Down to and including healthy tissue, in the subcutaneous layer Percentage of wound debrided: 100 Instrument Used: 5mm curette Severity: Fat Layer Exposed Amount of bleeding with debridement: Mild Bleeding Controlled with: Compression and gauze Patient tolerated procedure well - Additional Wound Laterality: Right - Second toe dorsum Type of Debridement: Excisional debridement Anesthesia Used: 4% Lidocaine Solution Depth: Down to and including healthy tissue, in the subcutaneous layer Percentage of wound debrided: 100 Instrument Used: 5mm curette Severity: Fat Layer Exposed Amount of bleeding with debridement: Mild Bleeding Controlled with: Compression and gauze Patient tolerated procedure: Patient tolerated procedure well - Additional Wound Laterality: Right - Third toe dorsum Type of Debridement: Excisional debridement Anesthesia Used: 4% Lidocaine Solution Depth: Down to and including healthy tissue, in the subcutaneous layer Percentage of wound debrided: 100 Instrument Used: 5mm curette Severity: Fat Layer Exposed Amount of bleeding with debridement: Mild Bleeding Controlled with: Compression and gauze Patient tolerated procedure: Patient tolerated procedure well - Additional Wound Laterality: Right - Heel Type of Debridement: Excisional debridement Anesthesia Used: 4% Lidocaine Solution Depth: Down to and including healthy tissue, in the subcutaneous layer Percentage of wound debrided: 100 Instrument Used: 5mm curette Severity: Fat Layer Exposed Amount of bleeding with debridement: Mild Bleeding Controlled with: Compression and gauze Patient tolerated procedure: Patient tolerated procedure well Assessment/Plan Active Problems Bilateral leg ulcer (Acute) Ulcer of right lower extremity (Chronic) Ulcer of right foot (Chronic) PAD (peripheral artery disease) (Chronic) PAD (peripheral artery disease) (Chronic) Assessment: This is a 72-year-old male with severe peripheral arterial occlusive disease, who recently underwent revascularization of the right lower extremity. He has recently presented with ulcerations of the right calf and the right foot. The right foot ulcerations appear to be pressure related, likely due to swelling of his right foot while wearing rigid shoes. Several of the ulcerations demonstrate roberto necrotic material. Patient has other pre- existing comorbid conditions, which have been documented above. Currently, we may consider an x-ray of the right foot, to determine whether there is any sign of osteomyelitis. Plan: The patient has been advised to keep his legs elevated, to heart level or higher. This is an effort to prevent swelling and edema in the lower extremities, as occurred only several weeks ago when the patient was sitting for long periods of time. The patient appears to have very little understanding or insight into his medical problems. His , who is at the bedside, appears to be more enlightened. Given the patient's recent revascularization procedure, we are to avoid compression to the lower extremities at this time. It is hoped that elevation and activity will help prevent swelling and edema. We are to implement the use of collagenase Santyl to the ulcerations in the right lower extremity which demonstrate roberto necrosis. Collagen hydrogel will be used on the other ulcerations which are more superficial in nature, and smaller in size. The patient has been encouraged to wear properly fitted footwear. Patient will return in 1 week for reevaluation. Patient's recent laboratory results have been reviewed, with results as follows: White blood count 8.9, hemoglobin 8.9, hematocrit 30.1, platelets 145,000 sodium 137, calcium 3.5, chloride 99, BUN 15, creatinine 0.88 , glucose 85, hemoglobin A1c 7.3, calcium 7.8, iron 18, TIBC 356, AST 35, ALT 24 , alkaline phosphatase 276, total protein 6.5, albumin 2.3. A well-balanced and nutritious diet has been recommended. It is known that the patient suffers from blood loss by means of the GI tract. He is currently under the care of other physicians in this regard. Patient will return in 1 week for reassessment. Note was generated with [employer] dictation software. It may contain incorrect words, spelling, and punctuation that were not noted in checking the note before signing.
== END 2017-09-06 23:59 ==
LOC: WC 16:00
PROVIDERS: Visit Provider Internal Medicine
DX: I73.9 Peripheral vascular disease, unspecified (principal); I25.10 Atherosclerotic heart disease of native coronary artery without angina pectoris; Z87.891 Personal history of nicotine dependence; I48.91 Unspecified atrial fibrillation; N18.3 Chronic kidney disease, stage 3 (moderate); I50.20 Unspecified systolic (congestive) heart failure; I13.0 Hypertensive heart and chronic kidney disease with heart failure and stage 1 through stage 4 chronic kidney disease, or unspecified chronic kidney disease; L97.212 Non-pressure chronic ulcer of right calf with fat layer exposed; L97.512 Non-pressure chronic ulcer of other part of right foot with fat layer exposed; L97.412 Non-pressure chronic ulcer of right heel and midfoot with fat layer exposed
CPT/HCPCS: 11042; 87070; 87075; 87077; 87186; 87205; 99213; G0463

== ENCOUNTER 2017-09-22 15:30 | Outpatient (RCR) | payer MEDICARE, SELFPAY ==
[2017-09-07 01:06] VITALS: BP 130/59; PULSE 65; RESP 16; TEMP 36.4
== END 2017-10-07 23:59 ==
LOC: WC 15:30
PROVIDERS: Family Provider Student in an Organized Health Care Education/Training Program; PCP Student in an Organized Health Care Education/Training Program; Visit Provider Internal Medicine
DX: Z09 Encounter for follow-up examination after completed treatment for conditions other than malignant neoplasm (principal)

== ENCOUNTER 2017-11-29 17:25 | Inpatient (IN) | payer MEDICARE, SELFPAY ==
[2017-11-29] VITALS (7 sets, daily range): BP systolic 110–155; BP diastolic 60–93; PULSE 58–65; RESP 14–18; O2SAT 87–100; BMI 25.4
--- NOTE | 2017-11-29 18:28 | EKG12_ITS ---
Test Reason : CHF Blood Pressure : / mmHG Vent. Rate : 057 BPM Atrial Rate : 057 BPM P-R Int : 080 ms QRS Dur : 114 ms QT Int : 526 ms P-R-T Axes : 055 -45 082 degrees QTc Int : 511 ms Sinus bradycardia with sinus arrhythmia with short NE Left axis deviation Inferior infarct , age undetermined ST & T wave abnormality, consider anterolateral ischemia Prolonged QT Abnormal ECG Confirmed by ALISA ELMORE, LAVERNE ([id number]), sound editor MICHELE DELACRUZ ([id number]) on 12/03/2017 8:54:49 AM Referred By: BRAEDEN Confirmed By:LAVERNE CUELLAR MD
--- NOTE | 2017-11-29 18:35 | RAD_ITS ---
STUDY: X-RAY CHEST REASON FOR EXAM: Male, 72 years old. Shortness of breath. History of congestive failure. TECHNIQUE: Single frontal view of the chest. COMPARISON: None. FINDINGS: There is low volume inspiration unchanged. There is a diffuse interstitial pattern. There is no demonstrated pleural abnormality. There is stable cardiomegaly with sternotomy wires. Normal mediastinum and alex. Normal visualized pulmonary arteries. There is atherosclerotic calcification of the aortic arch with tortuosity. Normal visualized thoracic spine. Normal visualized ribs, clavicles, and shoulders. Incidentally noted is gaseous distention of bowel. RAD/Chest 1 View (Portable) IMPRESSION: Cardiomegaly with low volume inspiration and diffuse interstitial pattern unchanged. Gaseous distention of bowel. Electronically Signed: Killian Cosby MD at 19:18 EDT , Service support ,
[2017-11-29] MEDS: 0.9% Normal Saline 1,000 ML 150 ML IV (18:39)
[2017-11-29 18:46] LABS: Absolute Lymphocyte Count 0.81 X10^3/ul (0.83-4.51); Absolute Neutrophil Count 5.8 X10^3/uL (2.0-7.7); Basophil# 0.07 X10^3/uL; Basophil% 0.9 % (0-1); Eosinophil# 0.28 X10^3/uL; Eosinophils% 3.5 % (0-5); Hematocrit 41.7 % (40-54); Hemoglobin 13.3 g/dl (13.0-16.5); Lymphocyte # 0.81 X10^3/ul (4.0); Mean Corp Hgb Conc 31.9 g/gl (32-36); Mean Corpuscular Volume 84.8 fL (80-94); Mean Platelet Vol. 8.8 fl (6.2-12.0); Monocyte# 1.12 X10^3/uL; Monocyte% 13.8 % (0-10); Neutrophil # 5.79 X10^3/uL (2.7-7.7); Neutrophil % 71.6 % (47-70); POSITIVE COUNT NO; POSITIVE DIFFERENTIAL NO; POSITIVE MORPHOLOGY NO; Platelet Count 243 K/mm3 (150-450); RBC Distribution Width CV 16.6 % (11.6-14.6); RBC Distribution Width SD 51.3 fl (35.1-43.9); Red Blood Count 4.92 M/mm3 (4.6-6.2); White Blood Count 8.1 K/mm3 (4.4-11.0)
[2017-11-29 18:49] LABS: Prothrombin Time (Protime)PT. 69.2 SECONDS (11.7-14.9)
[2017-11-29 18:54] LABS: International Normalized Ratio 8.2
--- NOTE | 2017-11-29 18:58 | ED.RN ---
CRITICAL LAB RECEIVED INR 8.2. DR TREVIZO NOTIFIED, NO NEW ORDERS AT THIS TIME.
[2017-11-29 19:06] LABS: Lactic Acid 1.9 mmol/L (0.4-2.0)
[2017-11-29 19:21] LABS: ALB/GLOB Ratio 0.6 RATIO (0.9-2.4); AST(SGOT) 30 U/L (15-37); Alanine Aminotransfer ALT/SGPT 28 U/L (16-61); Alkaline Phosphatase 136 U/L (45-117); Anion Gap 10 (5-15); BUN 10 mg/dL (7-18); BUN/Creat Ratio 9.5 RATIO (10-20); Calcium,Total 8.2 mg/dL (8.5-10.1); Chloride 94 mmol/L (98-107); Creatinine, Serum 1.05 mg/dL (0.70-1.30); EST Glomerular Filtration Rate 74 mL/min (>60); Est Glom Filt Rate - Afr Amer 89 mL/min (>60); Estimated Creatinine Clearance 73.94 ml/min; Globulin 4.9 g/dL (2.2-4.2); Glucose 149 mg/dL (74-106); Lipase 206 U/L (73-393); Potassium 2.3 mmol/L (3.5-5.1); Protein, Total 7.9 g/dL (6.4-8.2); Sodium Level 138 mmol/L (136-145)
--- NOTE | 2017-11-29 19:22 | CT_ITS ---
STUDY: CT ABDOMEN AND PELVIS WITH CONTRAST REASON FOR EXAM: Male, 72 years old. Abdominal pain. RADIATION DOSAGE (If Supplied By Facility): CTDIvol = ( 23.11 ) mGy, DLP = ( 1341.89 ) mGycm TECHNIQUE: Transaxial images were obtained from the dome of the diaphragm to the symphysis pubis without oral contrast. 100ML ml of Isovue 300 contrast was administered. Sagittal and coronal images were reconstructed. Individualized dose optimization techniques were used for this CT. COMPARISON: None. FINDINGS: Calcified granuloma in the left lung base. Small amount of left lower lobe airspace disease and effusion. Cardiomegaly is noted. Normal liver. Normal gallbladder and extrahepatic biliary system. There are multiple benign calcified granulomata of the spleen. Normal pancreas. Normal bilateral adrenal glands. Normal right kidney. Normal left kidney. Normal visualized stomach. Normal small intestine. Prominent gaseous dilated loops of colon with a large dilated sigmoid colon. Sigmoid volvulus cannot be excluded. However, there is no Bird beak appearance. Scattered fecal retention throughout the colon. Normal appendix There is diffuse atherosclerotic calcification of the abdominal aorta, without a demonstrated aneurysm. Normal inferior vena cava. Normal retroperitoneum. Normal urinary bladder. Circumferential wall thickening of the bladder suggests chronic cystitis. Normal abdominal wall. There are diffuse degenerative changes of the visualized lumbar spine. CT/Abdomen/Pelvis W IV Cont ONLY IMPRESSION: Markedly gaseous distended loops of colon, particularly the sigmoid colon. This could represent sigmoid volvulus however, there is no discrete bird beak appearance. There is some fecal retention in the rectum. Normal appendix. Small amount of left lower lobe airspace disease and effusion. Electronically Signed: Kamran Morris DO at 20:30 EDT Tel , Service support ,
[2017-11-29 19:31] LABS: Bacteria 0 SEEN /hpf (None Seen); Mucous, Urine 0 SEEN /hpf (<or=2+); White Blood Cells 0 SEEN /hpf (0-5)
[2017-11-29 19:33] LABS: Color, Urine Yellow (Yellow); Glucose, Dipstick Normal (Normal); Ketone-Dipstick Negative (Negative); Leukocyte Esterase-Dipstick Negative /ul (Negative); Nitrite-Dipstick Negative (Negative); Occult Blood-Urine Negative /ul (Negative); Protein-Dipstick Negative (Negative); Urine Bilirubin Dipstick Negative (Negative); Urine Clarity Clear (Clear); Urine Urobilinogen Normal (Normal)
[2017-11-29 19:39] LABS: Hyaline Cast 0-5 SEEN /lpf (0-5); Squamous Epithelial Cells - UA 0-5 SEEN /hpf (0-5)
[2017-11-29 19:41] LABS: Red Blood Cells-Urine 0-5 SEEN /hpf (0-5); Transitional Epithelial - Ur 0-5 SEEN /hpf (0-5)
--- NOTE | 2017-11-29 19:42 | ED.RN ---
LAB CALLED WITH CRITICAL LAB RESULTS. POTASSIUM LEVEL 2.3. DR. TREVIZO MADE AWARE. NO NEW ORDERS AT THIS TIME
--- NOTE | 2017-11-29 21:51 | EKG12_ITS ---
Test Reason : SOB Blood Pressure : / mmHG Vent. Rate : 065 BPM Atrial Rate : 075 BPM P-R Int : 000 ms QRS Dur : 138 ms QT Int : 512 ms P-R-T Axes : 000 -53 -36 degrees QTc Int : 532 ms Atrial fibrillation Left axis deviation Non-specific intra-ventricular conduction block Inferior infarct , age undetermined Marked ST abnormality, possible anterior subendocardial injury Abnormal ECG Confirmed by ALISA ELMORE, LAVERNE ([id number]), field map editor MICHELE DELACRUZ ([id number]) on 12/03/2017 8:55:03 AM Referred By: LEYLA Confirmed By:LAVERNE CUELLAR MD
--- NOTE | 2017-11-29 23:31 | PCM.CONS.GEN ---
Problem List (1) Colon distention Status: Acute Reason for Consult Date of Consultation: 11/29/17 Reason for Consultation: Colonic distention and possible volvulus History of Present Illness: The patient is a 72 year old M who presented to the emergency room after not feeling well. The patient's daughter reports that he has not been walking and he has not been eating a has had loss of appetite. The patient reports that he has been passing gas and had a bowel movement this morning but he has been having just liquid stools. He is not having any abdominal pain or nausea or vomiting. He says he had a colonoscopy about a year ago in [place]. According to the it was normal. Past Medical History Past Medical History (Chronic Problems): Chronic Problems GI bleeding (Chronic) Hearing deficit (Chronic) Hypertension (Chronic) A-fib (Chronic) Ulcer of right lower extremity (Chronic) Ulcer of right foot (Chronic) PAD (peripheral artery disease) (Chronic) Systolic congestive heart failure (Chronic) Aortic stenosis (Chronic) Pulmonary hypertension (Chronic) Ischemic cardiomyopathy (Chronic) Iron deficiency anemia (Chronic) BPH (benign prostatic hyperplasia) (Chronic) Splenomegaly (Chronic) Gallbladder sludge (Chronic) Fatty infiltration of liver (Chronic) PAD (peripheral artery disease) (Chronic) Stage III chronic kidney disease (Chronic) Chronic atrial fibrillation (Chronic) Status post coronary artery bypass graft (Chronic) Decubitus ulcer of sacral area (Chronic) Hypothyroidism (Chronic) CVA (cerebral vascular accident) (Chronic) CAD (coronary artery disease) (Chronic) Allergies latex Allergy (Verified 08/19/17 08:39) Rash LEEANN Inhibitors Adverse Reaction (Verified 08/19/17 08:39) Other Home Medications: Ambulatory Orders Medication Instructions Recorded Amiodarone HCl 200 mg PO DAILY 10/28/16 Atorvastatin Calcium [Lipitor] 20 mg PO QHS 10/28/16 Carvedilol [Coreg (Beta Kaycee)] 12.5 mg PO BID 10/28/16 Furosemide [Lasix] 40 mg PO DAILY 10/28/16 Levothyroxine [Synthroid] 88 mcg PO DAILY 10/28/16 Losartan Potassium 25 mg PO DAILY 10/28/16 Tamsulosin HCl [Flomax] 0.4 mg PO QHS 10/28/16 Furosemide [Lasix] 20 mg PO DINNER 07/21/17 Sertraline HCl [Zoloft] 50 mg PO DAILY 07/21/17 Ferrous Sulfate 325 mg PO BIDCM #60 tab 07/28/17 Potassium Chloride [Klor-Con M10] 10 meq PO BID #60 tab.er.prt 07/28/17 Warfarin [Coumadin] 6.5 mg PO DAILY 11/29/17 Surgical History: coronary bypass surgery, total hip arthroplasty - Left; bilateral carotid endarterectomy Smoking Status: Never smoker - *Family History Maternal History Items: - - Patient's father at the age of 70 from a myocardial infarction. Patient's mother at age of 75 with a history of cerebrovascular accident. Review of Systems Constitutional: Reports: Anorexia. Denies: Fever HEENT: Denies: Difficulty Swallowing Cardiovascular: Denies: Chest Pain Respiratory: Denies: Shortness of Breath Gastrointestinal: Denies: Abdominal Pain, Constipation, Nausea, Vomiting Skin: Denies: Jaundice Neurological: Reports: Balance problems, Confusion Hematologic/ Lymphatic: Reports: Anemia Patient Problems: Active and Suspected Problems Colon distention (Acute) - Physical Exam General: Alert, Confused HEENT: Atraumatic Neck: No JVD Lungs: Normal air movement Cardiovascular: Regular rate, Regular Rhythm Abdomen: Soft, Non Tender, Distended, - - On rectal exam the patient had good rectal tone and a copious amount of flatus and liquid stool after rectal exam. The patient also has a left buttock pressure ulcer. Extremities: No clubbing Musculoskeletal: No Tenderness to Palpation of Joints or Extremities Lymphatic: No Cervical, Supraclavicular, or Inguinal Adenopathy Neurological: Cranial nerves II-XII grossly intact Psych/Mental Status: Agitated Vital Signs Pulse Resp BP Pulse Ox 62 17 152/93 H 100 11/29/17 23:23 11/29/17 23:23 11/29/17 23:23 11/29/17 23:23 Oxygen Flow Rate (L/min) 2 Oxygen Delivery Method Nasal Cannula Weight: 198 lb 6.656 oz Body Mass Index (BMI) 25.4 Laboratory Tests Past 24 Hrs 11/29/17 11/29/17 11/29/17 17:35 17:35 17:35 WBC 8.1 RBC 4.92 Hgb 13.3 Hct 41.7 MCV 84.8 MCH 27.0 MCHC 31.9 L RDW 16.6 H RDW Differential 51.3 H Plt Count 243 MPV 8.8 Immature Gran % (Auto) 0.200 Neut % (Auto) 71.6 H Lymph % (Auto) 10.0 L [place] % (Auto) 13.8 H Eos % (Auto) 3.5 Baso % (Auto) 0.9 Absolute Neuts (auto) 5.8 Absolute Lymphs (auto) 0.81 L Total Counted Not Reportable PT 69.2 H INR 8.2 H* Sodium 138 Potassium 2.3 L* Chloride 94 L Carbon Dioxide 34.0 H Anion Gap 10 BUN 10 Creatinine 1.05 Estim Creat Clear Calc 73.94 Est GFR (MDRD) Af Amer 89 Est GFR (MDRD) Non-Af 74 BUN/Creatinine Ratio 9.5 L Glucose 149 H Lactic Acid Calcium 8.2 L Total Bilirubin 0.80 AST 30 ALT 28 Alkaline Phosphatase 136 H Troponin I 0.075 H Total Protein 7.9 Albumin 3.0 L Globulin 4.9 H Albumin/Globulin Ratio 0.6 L Lipase 206 Urine Color Urine Clarity Urine pH Ur Specific [place] Urine Protein Urine Glucose (UA) Urine Ketones Urine Occult Blood Urine Nitrite Urine Bilirubin Urine Urobilinogen Ur Leukocyte Esterase Urine RBC Urine WBC Ur Squamous Epith Cells Ur Transition Epith Cell Urine Bacteria Hyaline Casts Urine Mucus 11/29/17 11/29/17 17:35 19:25 WBC RBC Hgb Hct MCV MCH MCHC RDW RDW Differential Plt Count MPV Immature Gran % (Auto) Neut % (Auto) Lymph % (Auto) [place] % (Auto) Eos % (Auto) Baso % (Auto) Absolute Neuts (auto) Absolute Lymphs (auto) Total Counted PT INR Sodium Potassium Chloride Carbon Dioxide Anion Gap BUN Creatinine Estim Creat Clear Calc Est GFR (MDRD) Af Amer Est GFR (MDRD) Non-Af BUN/Creatinine Ratio Glucose Lactic Acid 1.9 Calcium Total Bilirubin AST ALT Alkaline Phosphatase Troponin I Total Protein Albumin Globulin Albumin/Globulin Ratio Lipase Urine Color Yellow Urine Clarity Clear Urine pH 7.0 Ur Specific [place] 1.010 Urine Protein Negative Urine Glucose (UA) Normal Urine Ketones Negative Urine Occult Blood Negative Urine Nitrite Negative Urine Bilirubin Negative Urine Urobilinogen Normal Ur Leukocyte Esterase Negative Urine RBC 0-5 SEEN Urine WBC 0 SEEN Ur Squamous Epith Cells 0-5 SEEN Ur Transition Epith Cell 0-5 SEEN Urine Bacteria 0 SEEN Hyaline Casts 0-5 SEEN Urine Mucus 0 SEEN Clinical Impression(s) from Imaging Studies Chest X-Ray 11/29/17 18:35 IMPRESSION: Cardiomegaly with low volume inspiration and diffuse interstitial pattern unchanged. Gaseous distention of bowel. Electronically Signed: Killian Cosby MD at 19:18 EDT , Service support , Abdomen/Pelvis CT 11/29/17 19:22 IMPRESSION: Markedly gaseous distended loops of colon, particularly the sigmoid colon. This could represent sigmoid volvulus however, there is no discrete bird beak appearance. There is some fecal retention in the rectum. Normal appendix. Small amount of left lower lobe airspace disease and effusion. Electronically Signed: Kamran Morris DO at 20:30 EDT Tel , Service support , Assessment/Plan All Active Problems Bilateral leg ulcer (Acute) Colon distention (Acute) Cellulitis (Acute) Venous stasis ulcers of both lower extremities (Acute) 72-year-old male with colonic distention 1. Upon reviewing the CT scan I do not see any twisting of the sigmoid colon. The patient seems to have dilation of his rectum and sigmoid colon. The patient does not have any distention of the proximal colon or small bowel indicating obstruction. I performed a digital rectal exam and received copious amounts of liquid stool as well as gas in the rectum appeared dilated. This is indicative that there is not a volvulus at this time. 2. I believe the patient can have a clear liquid diet and I will reorder a KUB for the morning. 3. Patient has a pressure ulcer on the left buttock and I will order a wound nurse consultation for documentation. 4. Patient appears to have dementia although was denied by the patient's . The patient seems very confused and asks the same questions over and over. The patient does have history of strokes. The patient is very hypokalemic. I would replace potassium and I am also checking magnesium and phosphorus. I think it would be helpful if the patient would ambulate. INR is over 8. Patient is on Coumadin. 5. At this time there is no surgical indication. The patient has no abdominal pain and is passing a large amount of flatus after rectal exam. I will observe with a KUB in the morning and I think it is okay for the patient had clear liquids as he says he is thirsty and hungry. Vance Campos MD Pager: [facility] [address] [place] [address], [address] [place] [address] Office:
--- NOTE | 2017-11-29 23:37 | CON.PCM_ITS ---
Problem List (1) Colon distention Status: Acute Reason for Consult Date of Consultation: 11/29/17 Reason for Consultation: Colonic distention and possible volvulus History of Present Illness: The patient is a 72 year old M who presented to the emergency room after not feeling well. The patient's daughter reports that he has not been walking and he has not been eating a has had loss of appetite. The patient reports that he has been passing gas and had a bowel movement this morning but he has been having just liquid stools. He is not having any abdominal pain or nausea or vomiting. He says he had a colonoscopy about a year ago in [place]. According to the it was normal. Past Medical History Past Medical History (Chronic Problems): Chronic Problems GI bleeding (Chronic) Hearing deficit (Chronic) Hypertension (Chronic) A-fib (Chronic) Ulcer of right lower extremity (Chronic) Ulcer of right foot (Chronic) PAD (peripheral artery disease) (Chronic) Systolic congestive heart failure (Chronic) Aortic stenosis (Chronic) Pulmonary hypertension (Chronic) Ischemic cardiomyopathy (Chronic) Iron deficiency anemia (Chronic) BPH (benign prostatic hyperplasia) (Chronic) Splenomegaly (Chronic) Gallbladder sludge (Chronic) Fatty infiltration of liver (Chronic) PAD (peripheral artery disease) (Chronic) Stage III chronic kidney disease (Chronic) Chronic atrial fibrillation (Chronic) Status post coronary artery bypass graft (Chronic) Decubitus ulcer of sacral area (Chronic) Hypothyroidism (Chronic) CVA (cerebral vascular accident) (Chronic) CAD (coronary artery disease) (Chronic) Allergies latex Allergy (Verified 08/19/17 08:39) Rash LEEANN Inhibitors Adverse Reaction (Verified 08/19/17 08:39) Other Home Medications: Ambulatory Orders Medication Instructions Recorded Amiodarone HCl 200 mg PO DAILY 10/28/16 Atorvastatin Calcium [Lipitor] 20 mg PO QHS 10/28/16 Carvedilol [Coreg (Beta Kaycee)] 12.5 mg PO BID 10/28/16 Furosemide [Lasix] 40 mg PO DAILY 10/28/16 Levothyroxine [Synthroid] 88 mcg PO DAILY 10/28/16 Losartan Potassium 25 mg PO DAILY 10/28/16 Tamsulosin HCl [Flomax] 0.4 mg PO QHS 10/28/16 Furosemide [Lasix] 20 mg PO DINNER 07/21/17 Sertraline HCl [Zoloft] 50 mg PO DAILY 07/21/17 Ferrous Sulfate 325 mg PO BIDCM #60 tab 07/28/17 Potassium Chloride [Klor-Con M10] 10 meq PO BID #60 tab.er.prt 07/28/17 Warfarin [Coumadin] 6.5 mg PO DAILY 11/29/17 Surgical History: coronary bypass surgery, total hip arthroplasty - Left; bilateral carotid endarterectomy Smoking Status: Never smoker - *Family History Maternal History Items: - - Patient's father at the age of 70 from a myocardial infarction. Patient's mother at age of 75 with a history of cerebrovascular accident. Review of Systems Constitutional: Reports: Anorexia. Denies: Fever HEENT: Denies: Difficulty Swallowing Cardiovascular: Denies: Chest Pain Respiratory: Denies: Shortness of Breath Gastrointestinal: Denies: Abdominal Pain, Constipation, Nausea, Vomiting Skin: Denies: Jaundice Neurological: Reports: Balance problems, Confusion Hematologic/ Lymphatic: Reports: Anemia Patient Problems: Active and Suspected Problems Colon distention (Acute) - Physical Exam General: Alert, Confused HEENT: Atraumatic Neck: No JVD Lungs: Normal air movement Cardiovascular: Regular rate, Regular Rhythm Abdomen: Soft, Non Tender, Distended, - - On rectal exam the patient had good rectal tone and a copious amount of flatus and liquid stool after rectal exam. The patient also has a left buttock pressure ulcer. Extremities: No clubbing Musculoskeletal: No Tenderness to Palpation of Joints or Extremities Lymphatic: No Cervical, Supraclavicular, or Inguinal Adenopathy Neurological: Cranial nerves II-XII grossly intact Psych/Mental Status: Agitated Vital Signs Pulse Resp BP Pulse Ox 62 17 152/93 H 100 11/29/17 23:23 11/29/17 23:23 11/29/17 23:23 11/29/17 23:23 Oxygen Flow Rate (L/min) 2 Oxygen Delivery Method Nasal Cannula Weight: 198 lb 6.656 oz Body Mass Index (BMI) 25.4 Laboratory Tests Past 24 Hrs 11/29/17 11/29/17 11/29/17 17:35 17:35 17:35 WBC 8.1 RBC 4.92 Hgb 13.3 Hct 41.7 MCV 84.8 MCH 27.0 MCHC 31.9 L RDW 16.6 H RDW Differential 51.3 H Plt Count 243 MPV 8.8 Immature Gran % (Auto) 0.200 Neut % (Auto) 71.6 H Lymph % (Auto) 10.0 L [place] % (Auto) 13.8 H Eos % (Auto) 3.5 Baso % (Auto) 0.9 Absolute Neuts (auto) 5.8 Absolute Lymphs (auto) 0.81 L Total Counted Not Reportable PT 69.2 H INR 8.2 H* Sodium 138 Potassium 2.3 L* Chloride 94 L Carbon Dioxide 34.0 H Anion Gap 10 BUN 10 Creatinine 1.05 Estim Creat Clear Calc 73.94 Est GFR (MDRD) Af Amer 89 Est GFR (MDRD) Non-Af 74 BUN/Creatinine Ratio 9.5 L Glucose 149 H Lactic Acid Calcium 8.2 L Total Bilirubin 0.80 AST 30 ALT 28 Alkaline Phosphatase 136 H Troponin I 0.075 H Total Protein 7.9 Albumin 3.0 L Globulin 4.9 H Albumin/Globulin Ratio 0.6 L Lipase 206 Urine Color Urine Clarity Urine pH Ur Specific [place] Urine Protein Urine Glucose (UA) Urine Ketones Urine Occult Blood Urine Nitrite Urine Bilirubin Urine Urobilinogen Ur Leukocyte Esterase Urine RBC Urine WBC Ur Squamous Epith Cells Ur Transition Epith Cell Urine Bacteria Hyaline Casts Urine Mucus 11/29/17 11/29/17 17:35 19:25 WBC RBC Hgb Hct MCV MCH MCHC RDW RDW Differential Plt Count MPV Immature Gran % (Auto) Neut % (Auto) Lymph % (Auto) [place] % (Auto) Eos % (Auto) Baso % (Auto) Absolute Neuts (auto) Absolute Lymphs (auto) Total Counted PT INR Sodium Potassium Chloride Carbon Dioxide Anion Gap BUN Creatinine Estim Creat Clear Calc Est GFR (MDRD) Af Amer Est GFR (MDRD) Non-Af BUN/Creatinine Ratio Glucose Lactic Acid 1.9 Calcium Total Bilirubin AST ALT Alkaline Phosphatase Troponin I Total Protein Albumin Globulin Albumin/Globulin Ratio Lipase Urine Color Yellow Urine Clarity Clear Urine pH 7.0 Ur Specific [place] 1.010 Urine Protein Negative Urine Glucose (UA) Normal Urine Ketones Negative Urine Occult Blood Negative Urine Nitrite Negative Urine Bilirubin Negative Urine Urobilinogen Normal Ur Leukocyte Esterase Negative Urine RBC 0-5 SEEN Urine WBC 0 SEEN Ur Squamous Epith Cells 0-5 SEEN Ur Transition Epith Cell 0-5 SEEN Urine Bacteria 0 SEEN Hyaline Casts 0-5 SEEN Urine Mucus 0 SEEN Clinical Impression(s) from Imaging Studies Chest X-Ray 11/29/17 18:35 IMPRESSION: Cardiomegaly with low volume inspiration and diffuse interstitial pattern unchanged. Gaseous distention of bowel. Electronically Signed: Killian Cosby MD at 19:18 EDT , Service support , Abdomen/Pelvis CT 11/29/17 19:22 IMPRESSION: Markedly gaseous distended loops of colon, particularly the sigmoid colon. This could represent sigmoid volvulus however, there is no discrete bird beak appearance. There is some fecal retention in the rectum. Normal appendix. Small amount of left lower lobe airspace disease and effusion. Electronically Signed: Kamran Morris DO at 20:30 EDT Tel , Service support , Assessment/Plan All Active Problems Bilateral leg ulcer (Acute) Colon distention (Acute) Cellulitis (Acute) Venous stasis ulcers of both lower extremities (Acute) 72-year-old male with colonic distention 1. Upon reviewing the CT scan I do not see any twisting of the sigmoid colon. The patient seems to have dilation of his rectum and sigmoid colon. The patient does not have any distention of the proximal colon or small bowel indicating obstruction. I performed a digital rectal exam and received copious amounts of liquid stool as well as gas in the rectum appeared dilated. This is indicative that there is not a volvulus at this time. 2. I believe the patient can have a clear liquid diet and I will reorder a KUB for the morning. 3. Patient has a pressure ulcer on the left buttock and I will order a wound nurse consultation for documentation. 4. Patient appears to have dementia although was denied by the patient's . The patient seems very confused and asks the same questions over and over. The patient does have history of strokes. The patient is very hypokalemic. I would replace potassium and I am also checking magnesium and phosphorus. I think it would be helpful if the patient would ambulate. INR is over 8. Patient is on Coumadin. 5. At this time there is no surgical indication. The patient has no abdominal pain and is passing a large amount of flatus after rectal exam. I will observe with a KUB in the morning and I think it is okay for the patient had clear liquids as he says he is thirsty and hungry. Vance Campos MD Pager: [facility] [address] [place] [address], [address] [place] [address] Office:
--- NOTE | 2017-11-29 23:49 | ED.VISSUMM ---
- ER Visit Summary Date of Service: 11/29/17 Chief Complaint: Weakness History of Present Illness: The patient is a 72 M who is brought in by family. They state that about 1.5 weeks ago he put himself in the bed. He would get out for about 2 days was only taking some liquids. He states that he does eat some things but basically complains that there very salty and he does not want to eat him. He been walking to the bathroom and states is now becoming incontinent having some clear Jell-O like stools. No recent antibiotics no fevers. No known contaminated food or water sources. He was last admitted in July for some leg ulcers having have peripheral vascular disease. He is on Coumadin for atrial fibrillation. Prior GI bleed history of chronic kidney disease. Family denies any history of dementia. He has had prior stroke. Family states they believe he is having CHF because his abdomen is swelling. Patient states that his abdomen was hurting on the right lower quadrant and then in the right flank but denies any current pain Physical Examination: Afebrile vital signs are stable Gen: Well-nourished well-developed Head: Normocephalic atraumatic Eyes: Perrl EOMI ENT: TMs clear no rhinorrhea moist mucous membranes Neck: Supple no lymphadenopathy no JVD nontender CVS: Irregularly irregular rate rhythm no murmurs normal S1-S2 Respiratory: No distress clear to auscultation bilaterally chest nontender Abdomen: Distended abdomen with tympany normal bowel sounds no masses Back: Nontender Stage 2 Decubitus Extremity: Nontender no edema Skin: Normal color no rash Neuro: alert orientated and hard of hearing. He is repetitive in his questions. Moves all extremities. Psych: Normal affect normal mood Test Results: CBC is normal. Potassium 2.3 glucose 149 troponin 0 0.07 of undetermined significance. Lactic acid 1.9. INR at age with no evidence of bleeding EKG sinus rhythm with some abnormal scooping ST segments anteriorly and U waves. Chest x-ray showed no acute intrathoracic pathology but showed gaseous dilatation of the colon. CT of the abdomen pelvis demonstrated dilated colon with air. This appears to go all the way down to the rectum. Emergency Department Course and Treatment: Patient received IV fluids and potassium. Given the significant distention of the colon I spoke with Dr. Campos who has come to examine the patient. Plan will be admitted to the hospital. Impression: 1. Failure to thrive 2. Severe hypokalemia 3. Supratherapeutic INR 4. Colonic distention This note was generated with [employer] dictation software. It may contain incorrect words, spelling, and punctuation that were not noted in review of the chart prior to signing ED Disposition - Plan for ED Patient: Chief Complaint: Shortness of Breath Referrals: Donnie Marrero DO [Primary Care Provider] -
[2017-11-30] VITALS (12 sets, daily range): BP systolic 112–133; BP diastolic 56–75; PULSE 53–68; RESP 14–18; TEMP 36.8–37; O2SAT 96–99; BMI 24.8
[2017-11-30 00:11] LABS: Magnesium 1.8 mg/dL (1.6-2.6); Phosphorus 2.5 mg/dL (2.5-4.9)
--- NOTE | 2017-11-30 01:41 | PCM.HP.STD ---
Problem List (1) Colon distention Status: Acute (2) A-fib Status: Chronic (3) Aortic stenosis Status: Chronic (4) BPH (benign prostatic hyperplasia) Status: Chronic (5) CAD (coronary artery disease) Status: Chronic (6) CVA (cerebral vascular accident) Status: Chronic (7) Decubitus ulcer of sacral area Status: Chronic (8) Hypertension Status: Chronic (9) Hypothyroidism Status: Chronic (10) Iron deficiency anemia Status: Chronic (11) Ischemic cardiomyopathy Status: Chronic (12) PAD (peripheral artery disease) Status: Chronic (13) Status post coronary artery bypass graft Status: Chronic (14) Systolic congestive heart failure Status: Chronic History of Present Illness Date of Admission: 11/30/17 Chief Complaint: Unable to get out of bed The patient is a 72 year old M with a PMH listed above presenting from home at the urging of his and daughter for the inability to get out of bed, ambulate, refusal to eat and abdominal distention. Per the , the distention is new and appears to have begun this morning. Most of the hx was obtained from the family as the patient appears to have dementia. Per the family he stopped walking 2 weeks ago and stopped eating as well. They are able to get him up to the bathroom but he obstinate in his refusal to eat and ambulate. About 2 weeks ago he did have a BM that was mucus and he slipped in it in the kitchen a fell. He denies any pain in his extremities and family states that he has ambulated since without pain. They have also noticed that he has become more forgetful over the last few years and has begun to perseverate on issues. In the ER he was found to have a very supratherapeutic INR and his potassium was very low. CT abdomen was concerning for a possible sigmoid volvulus so surgery was consulted who felt that this was not a volvulus and a rectal produced a liquid BM and flatus. Past Medical History Past Medical History (Chronic Problems): Chronic Problems GI bleeding (Chronic) Hearing deficit (Chronic) Hypertension (Chronic) A-fib (Chronic) Ulcer of right lower extremity (Chronic) Ulcer of right foot (Chronic) PAD (peripheral artery disease) (Chronic) Systolic congestive heart failure (Chronic) Aortic stenosis (Chronic) Pulmonary hypertension (Chronic) Ischemic cardiomyopathy (Chronic) Iron deficiency anemia (Chronic) BPH (benign prostatic hyperplasia) (Chronic) Splenomegaly (Chronic) Gallbladder sludge (Chronic) Fatty infiltration of liver (Chronic) PAD (peripheral artery disease) (Chronic) Stage III chronic kidney disease (Chronic) Chronic atrial fibrillation (Chronic) Status post coronary artery bypass graft (Chronic) Decubitus ulcer of sacral area (Chronic) Hypothyroidism (Chronic) CVA (cerebral vascular accident) (Chronic) CAD (coronary artery disease) (Chronic) Allergies latex Allergy (Verified 08/19/17 08:39) Rash LEEANN Inhibitors Adverse Reaction (Verified 08/19/17 08:39) Other Home Medications: Ambulatory Orders Medication Instructions Recorded Amiodarone HCl 200 mg PO DAILY 10/28/16 Atorvastatin Calcium [Lipitor] 20 mg PO QHS 10/28/16 Carvedilol [Coreg (Beta Kaycee)] 12.5 mg PO BID 10/28/16 Furosemide [Lasix] 40 mg PO DAILY 10/28/16 Levothyroxine [Synthroid] 88 mcg PO DAILY 10/28/16 Losartan Potassium 25 mg PO DAILY 10/28/16 Tamsulosin HCl [Flomax] 0.4 mg PO QHS 10/28/16 Furosemide [Lasix] 20 mg PO DINNER 07/21/17 Sertraline HCl [Zoloft] 50 mg PO DAILY 07/21/17 Potassium Chloride [Klor-Con M10] 10 meq PO BID #60 tab.er.[id number] 07/28/17 Warfarin [Coumadin] 6.5 mg PO DAILY 11/29/17 Ferrous Sulfate 325 mg PO BIDCM 11/30/17 Surgical History: coronary bypass surgery, total hip arthroplasty - Left; bilateral carotid endarterectomy Lives: With Family Smoking Status: Former smoker Alcohol: None Drugs: None - *Family History Maternal History Items: - - Patient's father at the age of 70 from a myocardial infarction. Patient's mother at age of 75 with a history of cerebrovascular accident. Review of Systems Constitutional: Reports: Anorexia. Denies: Chills, Fever, Weight Change HEENT: Denies: Head Aches, Sinus Congestion, Sinus Drainage Cardiovascular: Denies: Chest Pain, Palpitations Respiratory: Denies: Cough, Shortness of breath at rest, Sputum production Gastrointestinal: Denies: Abdominal Pain, Constipation, Diarrhea, Hematochezia, Nausea, Melena, Vomiting Genitourinary: Denies: Dysuria Musculoskeletal: Denies: Joint Pain, Joint Tenderness Skin: Denies: Rash, Wounds Neurological: Denies: Numbness, Tingling, Focal weakness Psychiatric: Denies: Anxiety, Depression Hematologic/ Lymphatic: Denies: Easy Bruising, Easy Bleeding VTE Information - Inpt Only VTE Present on Admission: No Patient Problems: Active and Suspected Problems Colon distention (Acute) - Physical Exam General: Alert, Cooperative, No apparent distress, Disoriented HEENT: Atraumatic, PERRLA, EOMI Oral: Dry Mucosa Neck: Supple, No JVD Lungs: Clear to auscultation, Normal air movement, No rhonchi, No wheeze, No rales Cardiovascular: Regular rate, Regular Rhythm, Normal S1, Normal S2, No murmurs Abdomen: Soft, Non Tender, No Hepato-splenomegaly, Distended Extremities: No edema Skin: No rashes, No breakdown Musculoskeletal: No Tenderness to Palpation of Joints or Extremities Neurological: Muscle tone normal, Sensory exam intact to light touch and pain Psych/Mental Status: Normal Affect, Appropriate, - - peseveration of ideas Vital Signs Pulse Resp BP Pulse Ox 62 17 152/93 H 100 11/29/17 23:23 11/29/17 23:23 11/29/17 23:23 11/29/17 23:23 Weight: 193 lb 5.526 oz Body Mass Index (BMI) 24.8 Assessment/Plan All Active Problems Bilateral leg ulcer (Acute) Colon distention (Acute) Cellulitis (Acute) Venous stasis ulcers of both lower extremities (Acute) 1. Failure to thrive/Inability to complete ADLs - Family is adamant that he will not go to a SNF and the will take him home when he is ready - PT/OT for evaluation and recommendations 2. Hypokalemia/Elevated troponin/Abdominal distention - Appreciate surgical recommendations - KUB in am, and c/w clears - Received 20 meq of KCL in the ER will give another 40 on the floor and recheck - Mag and phos are normal - Will trend troponins, ekg with no new changes 3. CAD s/p CABG/PAD s/p stenting/CKD3/HTN/HLD/A-fib/chronic sCHF - c/w his amiodarone but will hold his coumadin since his INR is 8 - C/w coreg, lasix, lipitor and losartan - He is also on plavix at home per the family which will be continued when verified 4. Iron deficiency anemia - H/H stable - c/w ferrous sulfate 5. Hypothyroid - TSH was previously elevated to 10.6 - Will recheck given his amio - C/w current synthroid dosing 6. Depression - stable - c/w zoloft 7. Dementia - based on exam and h/o he likely has vascular dementia - does not feel he does DVT: None - INR is 8 Diet: Clears Code Visit Inpatient E&M: 51047 Init Hosp L3
[2017-11-30 03:32] LABS: Thyroid Stim Hormone (TSH) 4.41 uIU/mL (0.358-3.74)
--- NOTE | 2017-11-30 04:40 | RAD_ITS ---
STUDY: X-RAY - ABDOMEN/PELVIS REASON FOR EXAM: Male, 72 years old. Colon distention TECHNIQUE: 3 AP supine views of the abdomen and pelvis. COMPARISON: None. FINDINGS: Contrast within the distended trabeculated urinary bladder. Superimposed monitors. Mild elevation right hemidiaphragm. Cardiomegaly. Severe distention of the sigmoid colon without beaking. Moderate distention of the remainder of the colon. There is no demonstrated free abdominal air on supine image. Normal soft tissue structures. There are diffuse degenerative changes of the visualized lumbar spine. There is demineralization of osseous structures. RAD/Abdomen Single View IMPRESSION: Marked persistent air distention of the sigmoid colon without beaking to suggest volvulus. Remainder of the colon is moderately distended. Electronically Signed: Rhea Hood MD at 7:36 EDT , Service support ,
[2017-11-30 05:33] LABS: Absolute Lymphocyte Count 1.26 X10^3/ul (0.83-4.51); Absolute Neutrophil Count 6.1 X10^3/uL (2.0-7.7); Basophil# 0.04 X10^3/uL; Basophil% 0.5 % (0-1); Eosinophil# 0.22 X10^3/uL; Eosinophils% 2.5 % (0-5); Hematocrit 36.4 % (40-54); Hemoglobin 11.9 g/dl (13.0-16.5); Lymphocyte # 1.26 X10^3/ul (4.0); Lymphocyte % 14.4 % (19-41); Mean Corp Hgb Conc 32.7 g/gl (32-36); Mean Corpuscular Hgb 27.3 pg (27.0-32.0); Mean Corpuscular Volume 83.5 fL (80-94); Mean Platelet Vol. 8.7 fl (6.2-12.0); Monocyte% 12.6 % (0-10); Neutrophil % 69.7 % (47-70); Platelet Count 232 K/mm3 (150-450); RBC Distribution Width CV 16.4 % (11.6-14.6); RBC Distribution Width SD 48.8 fl (35.1-43.9); Red Blood Count 4.36 M/mm3 (4.6-6.2); White Blood Count 8.8 K/mm3 (4.4-11.0)
[2017-11-30 05:34] LABS: POSITIVE COUNT NO; POSITIVE DIFFERENTIAL NO; POSITIVE MORPHOLOGY NO
[2017-11-30 05:36] LABS: International Normalized Ratio 8.2
[2017-11-30] MEDS: Levothyroxine 88 MCG Tablet PO (05:52)
[2017-11-30 06:01] LABS: Anion Gap 10 (5-15); BUN 11 mg/dL (7-18); BUN/Creat Ratio 12.2 RATIO (10-20); Chloride 97 mmol/L (98-107); EST Glomerular Filtration Rate 87 mL/min (>60); Est Glom Filt Rate - Afr Amer 106 mL/min (>60); Estimated Creatinine Clearance 86.26 ml/min; Glucose 110 mg/dL (74-106); Potassium 2.5 mmol/L (3.5-5.1); Sodium Level 138 mmol/L (136-145)
--- NOTE | 2017-11-30 08:00 | PCM.PN.SRG ---
Patient Problems: Active and Suspected Problems Colon distention (Acute) Subjective: Patient did not have any issues overnight. - Physical Exam General: Alert, No apparent distress Lungs: Normal air movement Abdomen: Soft, Non Tender, Distended Musculoskeletal: No Tenderness to Palpation of Joints or Extremities Vital Signs Temp Pulse Resp BP Pulse Ox 98.6 F 62 14 112/56 L 99 11/30/17 05:23 11/30/17 05:23 11/30/17 05:23 11/30/17 05:23 11/30/17 05:23 Oxygen Delivery Method Room Air Weight: 193 lb 5.526 oz Body Mass Index (BMI) 24.8 Intake and Output for Last 24 Hours 11/28/17 11/29/17 11/30/17 23:59 23:59 23:59 Intake Total 300 / 300 Balance 300 / 300 Laboratory Tests Past 24 Hrs 11/30/17 11/30/17 11/30/17 02:15 05:10 05:10 WBC 8.8 RBC 4.36 L Hgb 11.9 L Hct 36.4 L MCV 83.5 MCH 27.3 MCHC 32.7 RDW 16.4 H RDW Differential 48.8 H Plt Count 232 MPV 8.7 Immature Gran % (Auto) 0.300 Neut % (Auto) 69.7 Lymph % (Auto) 14.4 L [place] % (Auto) 12.6 H Eos % (Auto) 2.5 Baso % (Auto) 0.5 Absolute Neuts (auto) 6.1 Absolute Lymphs (auto) 1.26 Total Counted Not Reportable PT 69.0 H INR 8.2 H* Sodium Potassium Chloride Carbon Dioxide Anion Gap BUN Creatinine Estim Creat Clear Calc Est GFR (MDRD) Af Amer Est GFR (MDRD) Non-Af BUN/Creatinine Ratio Glucose Calcium Troponin I 0.062 H TSH 4.41 H 11/30/17 11/30/17 05:10 05:10 WBC RBC Hgb Hct MCV MCH MCHC RDW RDW Differential Plt Count MPV Immature Gran % (Auto) Neut % (Auto) Lymph % (Auto) [place] % (Auto) Eos % (Auto) Baso % (Auto) Absolute Neuts (auto) Absolute Lymphs (auto) Total Counted PT INR Sodium 138 Potassium 2.5 L* Chloride 97 L Carbon Dioxide 31.0 Anion Gap 10 BUN 11 Creatinine 0.90 Estim Creat Clear Calc 86.26 Est GFR (MDRD) Af Amer 106 Est GFR (MDRD) Non-Af 87 BUN/Creatinine Ratio 12.2 Glucose 110 H Calcium 8.0 L Troponin I 0.065 H TSH Clinical Impression(s) from Imaging Studies KUB X-Ray 11/30/17 04:40 IMPRESSION: Marked persistent air distention of the sigmoid colon without beaking to suggest volvulus. Remainder of the colon is moderately distended. Electronically Signed: Rhea Hood MD at 7:36 EDT , Service support , ADDENDUM: 11/30/17 0743 Medical Necessity - Tobacco Use Smoking Status: Former smoker Assessment/Plan All Active Problems Bilateral leg ulcer (Acute) Colon distention (Acute) Cellulitis (Acute) Venous stasis ulcers of both lower extremities (Acute) 72-year-old male with distended abdomen and dilated colon 1. The patient continues to have dilated sigmoid colon on KUB this he does not have any outflow obstruction on rectal exam. I will give the patient a Dulcolax suppository to see if the rectal stimulation helps him to pass gas. At this time I do not believe the patient has a volvulus or any surgical indication. 2. Hypokalemia-being replaced by primary team. 3. At this point my differential includes a chronically dilated sigmoid colon and there is no way to compare to old studies because he has not had any here. Differential would also include colonic ileus. He is not having any discomfort at this time. If he develops discomfort I would perform a decompressive colonoscopy. At this time his INR is still 8. Vance Campos MD Pager: [facility] [address] [place] [address], [address] [place] [address] Office:
--- NOTE | 2017-11-30 08:03 | PN.SURG_ITS ---
Patient Problems: Active and Suspected Problems Colon distention (Acute) Subjective: Patient did not have any issues overnight. - Physical Exam General: Alert, No apparent distress Lungs: Normal air movement Abdomen: Soft, Non Tender, Distended Musculoskeletal: No Tenderness to Palpation of Joints or Extremities Vital Signs Temp Pulse Resp BP Pulse Ox 98.6 F 62 14 112/56 L 99 11/30/17 05:23 11/30/17 05:23 11/30/17 05:23 11/30/17 05:23 11/30/17 05:23 Oxygen Delivery Method Room Air Weight: 193 lb 5.526 oz Body Mass Index (BMI) 24.8 Intake and Output for Last 24 Hours 11/28/17 11/29/17 11/30/17 23:59 23:59 23:59 Intake Total 300 / 300 Balance 300 / 300 Laboratory Tests Past 24 Hrs 11/30/17 11/30/17 11/30/17 02:15 05:10 05:10 WBC 8.8 RBC 4.36 L Hgb 11.9 L Hct 36.4 L MCV 83.5 MCH 27.3 MCHC 32.7 RDW 16.4 H RDW Differential 48.8 H Plt Count 232 MPV 8.7 Immature Gran % (Auto) 0.300 Neut % (Auto) 69.7 Lymph % (Auto) 14.4 L [place] % (Auto) 12.6 H Eos % (Auto) 2.5 Baso % (Auto) 0.5 Absolute Neuts (auto) 6.1 Absolute Lymphs (auto) 1.26 Total Counted Not Reportable PT 69.0 H INR 8.2 H* Sodium Potassium Chloride Carbon Dioxide Anion Gap BUN Creatinine Estim Creat Clear Calc Est GFR (MDRD) Af Amer Est GFR (MDRD) Non-Af BUN/Creatinine Ratio Glucose Calcium Troponin I 0.062 H TSH 4.41 H 11/30/17 11/30/17 05:10 05:10 WBC RBC Hgb Hct MCV MCH MCHC RDW RDW Differential Plt Count MPV Immature Gran % (Auto) Neut % (Auto) Lymph % (Auto) [place] % (Auto) Eos % (Auto) Baso % (Auto) Absolute Neuts (auto) Absolute Lymphs (auto) Total Counted PT INR Sodium 138 Potassium 2.5 L* Chloride 97 L Carbon Dioxide 31.0 Anion Gap 10 BUN 11 Creatinine 0.90 Estim Creat Clear Calc 86.26 Est GFR (MDRD) Af Amer 106 Est GFR (MDRD) Non-Af 87 BUN/Creatinine Ratio 12.2 Glucose 110 H Calcium 8.0 L Troponin I 0.065 H TSH Clinical Impression(s) from Imaging Studies KUB X-Ray 11/30/17 04:40 IMPRESSION: Marked persistent air distention of the sigmoid colon without beaking to suggest volvulus. Remainder of the colon is moderately distended. Electronically Signed: Rhea Hood MD at 7:36 EDT , Service support , ADDENDUM: 11/30/17 0743 Medical Necessity - Tobacco Use Smoking Status: Former smoker Assessment/Plan All Active Problems Bilateral leg ulcer (Acute) Colon distention (Acute) Cellulitis (Acute) Venous stasis ulcers of both lower extremities (Acute) 72-year-old male with distended abdomen and dilated colon 1. The patient continues to have dilated sigmoid colon on KUB this he does not have any outflow obstruction on rectal exam. I will give the patient a Dulcolax suppository to see if the rectal stimulation helps him to pass gas. At this time I do not believe the patient has a volvulus or any surgical indication. 2. Hypokalemia-being replaced by primary team. 3. At this point my differential includes a chronically dilated sigmoid colon and there is no way to compare to old studies because he has not had any here. Differential would also include colonic ileus. He is not having any discomfort at this time. If he develops discomfort I would perform a decompressive colonoscopy. At this time his INR is still 8. Vance Campos MD Pager: [facility] [address] [place] [address], [address] [place] [address] Office:
[2017-11-30] MEDS: Bisacodyl 10 MG Suppository RECTAL (09:14)
[2017-11-30] MEDS: Amiodarone 200 MG Tablet PO (09:16)
[2017-11-30] MEDS: Carvedilol 12.5 MG Tablet PO ×2 (09:16→22:18)
[2017-11-30] MEDS: Losartan Potassium 25 MG Tablet PO (09:16)
[2017-11-30] MEDS: Phytonadione (Vit K) 10 MG/ML Ampul 2.5 MG PO (09:17)
[2017-11-30] MEDS: Sertraline 50 MG Tablet PO (09:17)
[2017-11-30] MEDS: Furosemide 40 MG Tablet PO (09:17)
[2017-11-30] MEDS: Ferrous Sulfate 325 MG Tablet PO ×2 (11:45→18:40)
--- NOTE | 2017-11-30 14:50 | PCM.PN.HOSP ---
Patient Problems: Active and Suspected Problems Colon distention (Acute) Subjective: Patient was seen and examined. Denies any new complaints. Feels stronger. No acute events overnight Objective: Physical Exam General: Alert, Cooperative, No apparent distress, confused HEENT: Atraumatic, PERRLA, EOMI Oral: Dry Mucosa Neck: Supple, No JVD Lungs: Clear to auscultation, Normal air movement, No rhonchi, No wheeze, No rales Cardiovascular: Regular rate, Regular Rhythm, Normal S1, Normal S2, No murmurs Abdomen: Soft, Non Tender, No Hepato-splenomegaly, Distended Extremities: No edema Skin: No rashes, No breakdown Musculoskeletal: No Tenderness to Palpation of Joints or Extremities Neurological: Muscle tone normal, Sensory exam intact to light touch and pain Psych/Mental Status: Normal Affect, Appropriate, oriented to person but not to place or time Vitals/I&O's: Vital Signs Temp Pulse Resp BP Pulse Ox 98.2 F 61 14 123/60 H 96 11/30/17 09:07 11/30/17 11:10 11/30/17 09:07 11/30/17 09:07 11/30/17 09:07 Oxygen Delivery Method Room Air Weight: 87.7 kg Body Mass Index (BMI) 24.8 Intake and Output for Last 24 Hours 11/28/17 11/29/17 11/30/17 23:59 23:59 23:59 Intake Total 2406 / 2406 Output Total 200 / 200 Balance 2206 / 2206 Laboratory Results 11/30/17 02:15: Troponin I 0.062 H, TSH 4.41 H 11/30/17 05:10: PT 69.0 H, INR 8.2 H* 11/30/17 05:10: WBC 8.8, RBC 4.36 L, Hgb 11.9 L, Hct 36.4 L, MCV 83.5, MCH 27.3, MCHC 32.7, RDW 16.4 H, RDW Differential 48.8 H, Plt Count 232, MPV 8.7, Immature Gran % (Auto) 0.300, Neut % (Auto) 69.7, Lymph % (Auto) 14.4 L, [place] % (Auto) 12.6 H, Eos % (Auto) 2.5, Baso % (Auto) 0.5, Absolute Neuts (auto) 6.1, Absolute Lymphs (auto) 1.26, Total Counted Not Reportable 11/30/17 05:10: Sodium 138, Potassium 2.5 L*, Chloride 97 L, Carbon Dioxide 31.0, Anion Gap 10, BUN 11, Creatinine 0.90, Estim Creat Clear Calc 86.26, Est GFR (MDRD) Af Amer 106, Est GFR (MDRD) Non-Af 87, BUN/Creatinine Ratio 12.2, Glucose 110 H, Calcium 8.0 L 11/30/17 05:10: Troponin I 0.065 H 11/30/17 08:00: Troponin I 0.071 H Current Medications Amiodarone HCl (Cordarone) 200 mg PO DAILY [facility] Last Admin: 11/30/17 09:16 Dose: 200 mg Atorvastatin Calcium (Lipitor) 20 mg PO QHS [facility] Carvedilol (Coreg) 12.5 mg PO BID [facility] Last Admin: 11/30/17 09:16 Dose: 12.5 mg Ferrous Sulfate (Ferrous Sulfate) 325 mg PO BID@1200,1700 [facility] Last Admin: 11/30/17 11:45 Dose: 325 mg Furosemide (Lasix) 20 mg PO DINNER [facility] Furosemide (Lasix) 40 mg PO DAILY [facility] Last Admin: 11/30/17 09:17 Dose: 40 mg Levothyroxine Sodium (Synthroid) 88 mcg PO DAILY@0600 [facility] Last Admin: 11/30/17 05:52 Dose: 88 mcg Losartan Potassium (Cozaar) 25 mg PO DAILY [facility] Last Admin: 11/30/17 09:16 Dose: 25 mg Magnesium Hydroxide (Milk Of Magnesia) 30 ml PO DAILY PRN PRN Reason: Constipation Nutritional Formula (Lactose Free) (Ensure Clear) 120 ml PO 4X/DAY [facility] Last Admin: 11/30/17 09:16 Dose: Not Given Sertraline HCl (Zoloft) 50 mg PO DAILY [facility] Last Admin: 11/30/17 09:17 Dose: 50 mg Sodium Chloride () 5 - 30 ml IV UD PRN PRN Reason: SALINE FLUSH Tamsulosin HCl (Flomax) 0.4 mg PO QHS [facility] Medical Necessity - Tobacco Use Smoking Status: Former smoker Assessment/Plan All Active Problems Bilateral leg ulcer (Acute) Colon distention (Acute) Cellulitis (Acute) Venous stasis ulcers of both lower extremities (Acute) 72-year-old male with multiple comorbidities who presented with worsening weakness, refusing to eat as well as abdominal distention. 1. Abdominal distension secondary to dilated sigmoid colon, secondary to ileus, less likely to be volvulus, status post rectal bisacodyl with not much change We will continue to follow, general surgery also consulted 2. Hypokalemia hypomagnesemia, severe, replace, recheck level at 5 PM and in a.m. 3. Blood therapeutic INR, INR remains above 8.2, no signs of bleeding will give vitamin K 2.5 mg p.o. ?1, repeat INR at 5 PM and in a.m. 4. Elevated troponins likely secondary to demand ischemia, no signs of active cardiac decompensation, will trend for now 5. History of CAD status post CABG/PAD status post stents, on Lasix, statin, beta-kathleen, not on aspirin, or Plavix 6. Hypertension, controlled on carvedilol, losartan 7. Dyslipidemia, on statin 8. Chronic atrial fibrillation, rate controlled,, carvedilol, INR is supratherapeutic 9. Hypothyroidism, levothyroxine, TSH is 4.4 10. Depression, on Zoloft 11. Debility secondary to all acute concurrent problems on chronic comorbidities, PT and OT to evaluate 12. DVT prophylaxis-INR supratherapeutic Code Visit Inpatient E&M: 91759 Subs Hosp L3
--- NOTE | 2017-11-30 15:00 | PN_ITS ---
Patient Problems: Active and Suspected Problems Colon distention (Acute) Subjective: Patient was seen and examined. Denies any new complaints. Feels stronger. No acute events overnight Objective: Physical Exam General: Alert, Cooperative, No apparent distress, confused HEENT: Atraumatic, PERRLA, EOMI Oral: Dry Mucosa Neck: Supple, No JVD Lungs: Clear to auscultation, Normal air movement, No rhonchi, No wheeze, No rales Cardiovascular: Regular rate, Regular Rhythm, Normal S1, Normal S2, No murmurs Abdomen: Soft, Non Tender, No Hepato-splenomegaly, Distended Extremities: No edema Skin: No rashes, No breakdown Musculoskeletal: No Tenderness to Palpation of Joints or Extremities Neurological: Muscle tone normal, Sensory exam intact to light touch and pain Psych/Mental Status: Normal Affect, Appropriate, oriented to person but not to place or time Vitals/I&O's: Vital Signs Temp Pulse Resp BP Pulse Ox 98.2 F 61 14 123/60 H 96 11/30/17 09:07 11/30/17 11:10 11/30/17 09:07 11/30/17 09:07 11/30/17 09:07 Oxygen Delivery Method Room Air Weight: 87.7 kg Body Mass Index (BMI) 24.8 Intake and Output for Last 24 Hours 11/28/17 11/29/17 11/30/17 23:59 23:59 23:59 Intake Total 2406 / 2406 Output Total 200 / 200 Balance 2206 / 2206 Laboratory Results 11/30/17 02:15: Troponin I 0.062 H, TSH 4.41 H 11/30/17 05:10: PT 69.0 H, INR 8.2 H* 11/30/17 05:10: WBC 8.8, RBC 4.36 L, Hgb 11.9 L, Hct 36.4 L, MCV 83.5, MCH 27.3 , MCHC 32.7, RDW 16.4 H, RDW Differential 48.8 H, Plt Count 232, MPV 8.7, Immature Gran % (Auto) 0.300, Neut % (Auto) 69.7, Lymph % (Auto) 14.4 L, [place] % (Auto) 12.6 H, Eos % (Auto) 2.5, Baso % (Auto) 0.5, Absolute Neuts (auto) 6.1, Absolute Lymphs (auto) 1.26, Total Counted Not Reportable 11/30/17 05:10: Sodium 138, Potassium 2.5 L*, Chloride 97 L, Carbon Dioxide 31.0 , Anion Gap 10, BUN 11, Creatinine 0.90, Estim Creat Clear Calc 86.26, Est GFR ( MDRD) Af Amer 106, Est GFR (MDRD) Non-Af 87, BUN/Creatinine Ratio 12.2, Glucose 110 H, Calcium 8.0 L 11/30/17 05:10: Troponin I 0.065 H 11/30/17 08:00: Troponin I 0.071 H Current Medications Amiodarone HCl (Cordarone) [address] [facility] Last Admin: 11/30/17 09:16 Dose: 200 mg Atorvastatin Calcium (Lipitor) [address] [facility] Carvedilol (Coreg) 12.[address] [facility] Last Admin: 11/30/17 09:16 Dose: 12.5 mg Ferrous Sulfate (Ferrous Sulfate) 325 mg PO BID@1200,1700 [facility] Last Admin: 11/30/17 11:45 Dose: 325 mg Furosemide (Lasix) [address] [facility] Furosemide (Lasix) [address] [facility] Last Admin: 11/30/17 09:17 Dose: 40 mg Levothyroxine Sodium (Synthroid) 88 mcg PO DAILY@0600 [facility] Last Admin: 11/30/17 05:52 Dose: 88 mcg Losartan Potassium (Cozaar) [address] [facility] Last Admin: 11/30/17 09:16 Dose: 25 mg Magnesium Hydroxide (Milk Of Magnesia) 30 ml PO DAILY PRN PRN Reason: Constipation Nutritional Formula (Lactose Free) (Ensure Clear) 120 ml PO 4X/DAY [facility] Last Admin: 11/30/17 09:16 Dose: Not Given Sertraline HCl (Zoloft) [address] [facility] Last Admin: 11/30/17 09:17 Dose: 50 mg Sodium Chloride () 5 - 30 ml IV UD PRN PRN Reason: SALINE FLUSH Tamsulosin HCl (Flomax) 0.[address] [facility] Medical Necessity - Tobacco Use Smoking Status: Former smoker Assessment/Plan All Active Problems Bilateral leg ulcer (Acute) Colon distention (Acute) Cellulitis (Acute) Venous stasis ulcers of both lower extremities (Acute) 72-year-old male with multiple comorbidities who presented with worsening weakness, refusing to eat as well as abdominal distention. 1. Abdominal distension secondary to dilated sigmoid colon, secondary to ileus, less likely to be volvulus, status post rectal bisacodyl with not much change We will continue to follow, general surgery also consulted 2. Hypokalemia hypomagnesemia, severe, replace, recheck level at 5 PM and in a.m. 3. Blood therapeutic INR, INR remains above 8.2, no signs of bleeding will give vitamin K 2.5 mg p.o. ?1, repeat INR at 5 PM and in a.m. 4. Elevated troponins likely secondary to demand ischemia, no signs of active cardiac decompensation, will trend for now 5. History of CAD status post CABG/PAD status post stents, on Lasix, statin, beta-kathleen, not on aspirin, or Plavix 6. Hypertension, controlled on carvedilol, losartan 7. Dyslipidemia, on statin 8. Chronic atrial fibrillation, rate controlled,, carvedilol, INR is supratherapeutic 9. Hypothyroidism, levothyroxine, TSH is 4.4 10. Depression, on Zoloft 11. Debility secondary to all acute concurrent problems on chronic comorbidities , PT and OT to evaluate 12. DVT prophylaxis-INR supratherapeutic Code Visit Inpatient E&M: 73463 Subs Hosp L3
[2017-11-30 15:12] LABS: Magnesium 1.8 mg/dL (1.6-2.6)
[2017-11-30 17:36] LABS: International Normalized Ratio 7.8; Prothrombin Time (Protime)PT. 66.3 SECONDS (11.7-14.9)
[2017-11-30] MEDS: 0.9% NaCl Peripheral Flush Adult/Peds IV (18:40)
[2017-11-30] MEDS: Furosemide 20 MG Tablet PO (18:40)
[2017-11-30 18:49] LABS: Anion Gap 7 (5-15); BUN 9 mg/dL (7-18); BUN/Creat Ratio 10.1 RATIO (10-20); Calcium,Total 8.1 mg/dL (8.5-10.1); Chloride 94 mmol/L (98-107); Creatinine, Serum 0.89 mg/dL (0.70-1.30); EST Glomerular Filtration Rate 89 mL/min (>60); Est Glom Filt Rate - Afr Amer 108 mL/min (>60); Estimated Creatinine Clearance 87.23 ml/min; Glucose 116 mg/dL (74-106); Potassium 2.6 mmol/L (3.5-5.1); Sodium Level 133 mmol/L (136-145)
[2017-11-30] MEDS: Tamsulosin HCl 0.4 MG Capsule PO (22:18)
[2017-11-30] MEDS: Atorvastatin Calcium 20 MG Tablet PO (22:18)
[2017-12-01] VITALS (11 sets, daily range): BP systolic 105–143; BP diastolic 57–72; PULSE 60–71; RESP 16–18; TEMP 36.5–36.8; O2SAT 96–99
[2017-12-01] MEDS: Levothyroxine 88 MCG Tablet PO (06:25)
[2017-12-01 06:36] LABS: Anion Gap 9 (5-15); BUN 8 mg/dL (7-18); BUN/Creat Ratio 9.9 RATIO (10-20); Calcium,Total 8.1 mg/dL (8.5-10.1); Chloride 97 mmol/L (98-107); Creatinine, Serum 0.81 mg/dL (0.70-1.30); EST Glomerular Filtration Rate 99 mL/min (>60); Est Glom Filt Rate - Afr Amer 120 mL/min (>60); Estimated Creatinine Clearance 95.84 ml/min; Glucose 100 mg/dL (74-106); Potassium 2.7 mmol/L (3.5-5.1); Sodium Level 136 mmol/L (136-145)
[2017-12-01 06:41] LABS: Prothrombin Time (Protime)PT. 43.1 SECONDS (11.7-14.9)
[2017-12-01 06:44] LABS: International Normalized Ratio 4.5
--- NOTE | 2017-12-01 08:13 | PCM.PN.SRG ---
Patient Problems: Active and Suspected Problems Colon distention (Acute) Subjective: Patient has no new complaints. He passed a large amount of flatus yesterday evening with a semi-formed gelatinous stool per nursing. There was no blood. - Physical Exam General: Confused Neck: No JVD Lungs: Normal air movement Cardiovascular: Regular rate, Regular Rhythm Abdomen: Soft, Non Tender, Non-Distended Vital Signs Temp Pulse Resp BP Pulse Ox 98.3 F 65 16 143/62 H 98 12/01/17 03:28 12/01/17 03:28 12/01/17 03:28 12/01/17 03:28 12/01/17 03:28 Oxygen Delivery Method Room Air Weight: 193 lb 5.526 oz Body Mass Index (BMI) 24.8 Intake and Output for Last 24 Hours 11/29/17 11/30/17 12/01/17 23:59 23:59 23:59 Intake Total 3465 / 3465 Output Total 950 / 950 350 / 350 Balance 2515 / 2515 -350 / -350 Laboratory Tests Past 24 Hrs 11/30/17 11/30/17 11/30/17 08:00 08:00 17:00 PT 66.3 H INR 7.8 H* Sodium Potassium Chloride Carbon Dioxide Anion Gap BUN Creatinine Estim Creat Clear Calc Est GFR (MDRD) Af Amer Est GFR (MDRD) Non-Af BUN/Creatinine Ratio Glucose Calcium Magnesium 1.8 Troponin I 0.071 H 11/30/17 12/01/17 12/01/17 17:00 05:25 05:25 PT 43.1 H INR 4.5 H* Sodium 133 L 136 Potassium 2.6 L* 2.7 L* Chloride 94 L 97 L Carbon Dioxide 32.0 30.0 Anion Gap 7 9 BUN 9 8 Creatinine 0.89 0.81 Estim Creat Clear Calc 87.23 95.84 Est GFR (MDRD) Af Amer 108 120 Est GFR (MDRD) Non-Af 89 99 BUN/Creatinine Ratio 10.1 9.9 L Glucose 116 H 100 Calcium 8.1 L 8.1 L Magnesium Troponin I Medical Necessity - Tobacco Use Smoking Status: Former smoker Assessment/Plan All Active Problems Bilateral leg ulcer (Acute) Colon distention (Acute) Cellulitis (Acute) Venous stasis ulcers of both lower extremities (Acute) 72-year-old male with colonic dilation 1. The patient had a large liquid/formed bowel movement overnight with a large passing of flatus. He is not complaining of any abdominal pain again today. 2. I am unsure if the patient has a chronically dilated colon but I was not able to palpate any obstructing mass in the rectum. Due to the gelatinous nature of his stools I would be willing to perform a colonoscopy but this would not be able to be done until his INR was a reasonable level and his K has risen to appropriate levels as well. This still may be colonic ileus that would resolve with electrolyte replacement versus chronic sigmoid dilation. I do not believe there is no obstruction at this time. The patient continues to tolerate clear liquid diet. 3. If the patient is tolerating a diet and doing well with no abdominal pain once his electrolytes are repleted he can follow-up with me to schedule elective colonoscopy to determine why his stools have changed consistency. Vance Campos MD Pager: [facility] [address] [place] [address] [address] [place] [address] Office:
--- NOTE | 2017-12-01 08:16 | PN.SURG_ITS ---
Patient Problems: Active and Suspected Problems Colon distention (Acute) Subjective: Patient has no new complaints. He passed a large amount of flatus yesterday evening with a semi-formed gelatinous stool per nursing. There was no blood. - Physical Exam General: Confused Neck: No JVD Lungs: Normal air movement Cardiovascular: Regular rate, Regular Rhythm Abdomen: Soft, Non Tender, Non-Distended Vital Signs Temp Pulse Resp BP Pulse Ox 98.3 F 65 16 143/62 H 98 12/01/17 03:28 12/01/17 03:28 12/01/17 03:28 12/01/17 03:28 12/01/17 03:28 Oxygen Delivery Method Room Air Weight: 193 lb 5.526 oz Body Mass Index (BMI) 24.8 Intake and Output for Last 24 Hours 11/29/17 11/30/17 12/01/17 23:59 23:59 23:59 Intake Total 3465 / 3465 Output Total 950 / 950 350 / 350 Balance 2515 / 2515 -350 / -350 Laboratory Tests Past 24 Hrs 11/30/17 11/30/17 11/30/17 08:00 08:00 17:00 PT 66.3 H INR 7.8 H* Sodium Potassium Chloride Carbon Dioxide Anion Gap BUN Creatinine Estim Creat Clear Calc Est GFR (MDRD) Af Amer Est GFR (MDRD) Non-Af BUN/Creatinine Ratio Glucose Calcium Magnesium 1.8 Troponin I 0.071 H 11/30/17 12/01/17 12/01/17 17:00 05:25 05:25 PT 43.1 H INR 4.5 H* Sodium 133 L 136 Potassium 2.6 L* 2.7 L* Chloride 94 L 97 L Carbon Dioxide 32.0 30.0 Anion Gap 7 9 BUN 9 8 Creatinine 0.89 0.81 Estim Creat Clear Calc 87.23 95.84 Est GFR (MDRD) Af Amer 108 120 Est GFR (MDRD) Non-Af 89 99 BUN/Creatinine Ratio 10.1 9.9 L Glucose 116 H 100 Calcium 8.1 L 8.1 L Magnesium Troponin I Medical Necessity - Tobacco Use Smoking Status: Former smoker Assessment/Plan All Active Problems Bilateral leg ulcer (Acute) Colon distention (Acute) Cellulitis (Acute) Venous stasis ulcers of both lower extremities (Acute) 72-year-old male with colonic dilation 1. The patient had a large liquid/formed bowel movement overnight with a large passing of flatus. He is not complaining of any abdominal pain again today. 2. I am unsure if the patient has a chronically dilated colon but I was not able to palpate any obstructing mass in the rectum. Due to the gelatinous nature of his stools I would be willing to perform a colonoscopy but this would not be able to be done until his INR was a reasonable level and his K has risen to appropriate levels as well. This still may be colonic ileus that would resolve with electrolyte replacement versus chronic sigmoid dilation. I do not believe there is no obstruction at this time. The patient continues to tolerate clear liquid diet. 3. If the patient is tolerating a diet and doing well with no abdominal pain once his electrolytes are repleted he can follow-up with me to schedule elective colonoscopy to determine why his stools have changed consistency. Vance Campos MD Pager: [facility] [address] [place] [address] [address] [place] [address] Office:
[2017-12-01] MEDS: Amiodarone 200 MG Tablet PO (09:15)
[2017-12-01] MEDS: Losartan Potassium 25 MG Tablet PO (09:15)
[2017-12-01] MEDS: Furosemide 40 MG Tablet PO (09:16)
[2017-12-01] MEDS: Sertraline 50 MG Tablet PO (09:16)
[2017-12-01] MEDS: Carvedilol 12.5 MG Tablet PO ×2 (09:16→21:45)
--- NOTE | 2017-12-01 11:20 | CASEMGMT ---
Addendum entered by Corie Aparicio 12/01/17 13:24: This RN CM left message with number on chart for daughter as it is the only number for all contacts. This RN CM advised daughter to call this RN CM back when available. Elaine GOLDSTEIN CM Original Note: This RN CM to room to complete CM assessment and pt is sleeping and there is no family at bedside at this time. Per Iza GOLDSTEIN, pt is unable to answer questions appropriately at this time. Elaine GOLDSTEIN CM
[2017-12-01] MEDS: Ferrous Sulfate 325 MG Tablet PO ×2 (12:11→18:21)
--- NOTE | 2017-12-01 13:26 | PCM.PN.HOSP ---
Patient Problems: Active and Suspected Problems Colon distention (Acute) Subjective: Patient is a 72-year-old gentleman with multiple comorbidities including CAD status post CABG, chronic A. fib, who presented with progressive generalized weakness with associated abdominal distention 12/01/2017: Seen remains significantly weak. Potassium 2.7 this a.m., INR 4.5. Objective: GENERAL: Frail looking HEENT: Clear conjunctiva, NECK; supple, normal thyroid, CHEST: Diminished to auscultation bilaterally, HEART: Irregular S1 S2, ABDOMEN: soft, non-tender, normoactive bowel sounds, RECTAL: deferred EXTREMITIES: no clubbing, no cyanosis. GREENSMAN: Awake; no lateralizing signs. SKIN: Dry Vitals/I&O's: Vital Signs Temp Pulse Resp BP Pulse Ox 97.8 F 62 18 105/57 L 99 12/01/17 09:12 12/01/17 10:59 12/01/17 09:12 12/01/17 09:12 12/01/17 09:12 Oxygen Delivery Method Room Air Weight: 87.7 kg Body Mass Index (BMI) 24.8 Intake and Output for Last 24 Hours 11/29/17 11/30/17 12/01/17 23:59 23:59 23:59 Intake Total 3465 / 3465 240 / 240 Output Total 950 / 950 350 / 350 Balance 2515 / 2515 -110 / -110 Laboratory Results 11/30/17 08:00: Magnesium 1.8 11/30/17 17:00: PT 66.3 H, INR 7.8 H* 11/30/17 17:00: Sodium 133 L, Potassium 2.6 L*, Chloride 94 L, Carbon Dioxide 32.0, Anion Gap 7, BUN 9, Creatinine 0.89, Estim Creat Clear Calc 87.23, Est GFR (MDRD) Af Amer 108, Est GFR (MDRD) Non-Af 89, BUN/Creatinine Ratio 10.1, Glucose 116 H, Calcium 8.1 L 12/01/17 05:25: PT 43.1 H, INR 4.5 H* 12/01/17 05:25: Sodium 136, Potassium 2.7 L*, Chloride 97 L, Carbon Dioxide 30.0, Anion Gap 9, BUN 8, Creatinine 0.81, Estim Creat Clear Calc 95.84, Est GFR (MDRD) Af Amer 120, Est GFR (MDRD) Non-Af 99, BUN/Creatinine Ratio 9.9 L, Glucose 100, Calcium 8.1 L Current Medications Amiodarone HCl (Cordarone) 200 mg PO DAILY [facility] Last Admin: 12/01/17 09:15 Dose: 200 mg Atorvastatin Calcium (Lipitor) 20 mg PO QHS [facility] Last Admin: 11/30/17 22:18 Dose: 20 mg Carvedilol (Coreg) 12.5 mg PO BID [facility] Last Admin: 12/01/17 09:16 Dose: 12.5 mg Ferrous Sulfate (Ferrous Sulfate) 325 mg PO BID@1200,1700 [facility] Last Admin: 12/01/17 12:11 Dose: 325 mg Furosemide (Lasix) 20 mg PO DINNER [facility] Last Admin: 11/30/17 18:40 Dose: 20 mg Furosemide (Lasix) 40 mg PO DAILY [facility] Last Admin: 12/01/17 09:16 Dose: 40 mg Potassium Chloride 10 meq/ N/A 100 mls @ 100 mls/hr IV Q1H [facility] Stop: 12/01/17 15:29 Last Admin: 12/01/17 12:11 Dose: 100 mls/hr Levothyroxine Sodium (Synthroid) 88 mcg PO DAILY@0600 [facility] Last Admin: 12/01/17 06:25 Dose: 88 mcg Losartan Potassium (Cozaar) 25 mg PO DAILY [facility] Last Admin: 12/01/17 09:15 Dose: 25 mg Magnesium Hydroxide (Milk Of Magnesia) 30 ml PO DAILY PRN PRN Reason: Constipation Nutritional Formula (Lactose Free) (Ensure Clear) 120 ml PO 4X/DAY [facility] Last Admin: 12/01/17 09:16 Dose: Not Given Potassium [facility] Sertraline HCl (Zoloft) 50 mg PO DAILY [facility] Last Admin: 12/01/17 09:16 Dose: 50 mg Sodium Chloride () 5 - 30 ml IV UD PRN PRN Reason: SALINE FLUSH Last Admin: 11/30/17 18:40 Dose: 10 ml Tamsulosin HCl (Flomax) 0.4 mg PO QHS [facility] Last Admin: 11/30/17 22:18 Dose: 0.4 mg Medical Necessity - Tobacco Use Smoking Status: Former smoker Assessment/Plan All Active Problems Bilateral leg ulcer (Acute) Colon distention (Acute) Cellulitis (Acute) Venous stasis ulcers of both lower extremities (Acute) Patient is a 72-year-old gentleman with multiple comorbidities including CAD status post CABG, chronic A. fib, who presented with progressive generalized weakness with associated abdominal distention 1. Abdominal distention imaging studies demonstrated CT of the abdomen obtained demonstrated ; Markedly gaseous distended loops of colon, particularly the sigmoid colon consultation was placed to Gen Surgery. Plan is for possible endoscopic evaluation once his electrolyte abnormalities and coagulopathy are corrected 2. Hypomagnesemia corrected per protocol with subsequent 3. Hypokalemia corrected per protocol 4. Coagulopathy due to patient being on Coumadin Coumadin held 5. CAD with previous history of CABG 6. Peripheral arterial disease status post lower extremity stents 7. Hypertension-blood pressure controlled, home medications continued with dose adjustment as needed 8. Elevated troponin attributed to demand ischemia patient remains asymptomatic 9. Chronic atrial fibrillation rate controlled on beta-blockers. Patient INR on admission was markedly elevated Coumadin subsequently held 10. Dyslipidemia-patient is on statin therapy, continued at home dose 11. Hypothyroidism-patient is on levothyroxine home dose continued 12. Depression, on Zoloft 13. Debility requested for PT OT eval and social work job titles to assist with discharge planning 14. BPH patient is on Flomax 15. Chronic Systolic heart failure with ejection fraction of 20% on echo performed on 07/22/2017. Currently compensated 15. DVT prophylaxis patient is on Coumadin with a supratherapeutic INR on admission Clinical Impression(s) from Imaging Studies Chest X-Ray 11/29/17 18:35 IMPRESSION: Cardiomegaly with low volume inspiration and diffuse interstitial pattern unchanged. Gaseous distention of bowel. Electronically Signed: Killian Cosby MD at 19:18 EDT , Service support , Abdomen/Pelvis CT 11/29/17 19:22 IMPRESSION: Markedly gaseous distended loops of colon, particularly the sigmoid colon. This could represent sigmoid volvulus however, there is no discrete bird beak appearance. There is some fecal retention in the rectum. Normal appendix. Small amount of left lower lobe airspace disease and effusion. Electronically Signed: Kamran Morris DO at 20:30 EDT Tel , Service support , KUB X-Ray 11/30/17 04:40 IMPRESSION: Marked persistent air distention of the sigmoid colon without beaking to suggest volvulus. Remainder of the colon is moderately distended. Electronically Signed: Rhea Hood MD at 7:36 EDT , Service support , ADDENDUM: 11/30/17 0743 Active Medications Amiodarone HCl (Cordarone) 200 mg PO DAILY [facility] Last Admin: 12/01/17 09:15 Dose: 200 mg Atorvastatin Calcium (Lipitor) 20 mg PO QHS [facility] Last Admin: 11/30/17 22:18 Dose: 20 mg Carvedilol (Coreg) 12.5 mg PO BID [facility] Last Admin: 12/01/17 09:16 Dose: 12.5 mg Ferrous Sulfate (Ferrous Sulfate) 325 mg PO BID@1200,1700 [facility] Last Admin: 12/01/17 12:11 Dose: 325 mg Furosemide (Lasix) 20 mg PO DINNER [facility] Last Admin: 11/30/17 18:40 Dose: 20 mg Furosemide (Lasix) 40 mg PO DAILY [facility] Last Admin: 12/01/17 09:16 Dose: 40 mg Potassium Chloride 10 meq/ N/A 100 mls @ 100 mls/hr IV Q1H [facility] Stop: 12/01/17 15:29 Last Admin: 12/01/17 13:49 Dose: 100 mls/hr Levothyroxine Sodium (Synthroid) 88 mcg PO DAILY@0600 [facility] Last Admin: 12/01/17 06:25 Dose: 88 mcg Losartan Potassium (Cozaar) 25 mg PO DAILY [facility] Last Admin: 12/01/17 09:15 Dose: 25 mg Magnesium Hydroxide (Milk Of Magnesia) 30 ml PO DAILY PRN PRN Reason: Constipation Nutritional Formula (Lactose Free) (Ensure Clear) 120 ml PO 4X/DAY [facility] Last Admin: 12/01/17 13:46 Dose: 120 ml Potassium Chloride (K-Dur) 40 meq PO BIDCM [facility] Sertraline HCl (Zoloft) 50 mg PO DAILY [facility] Last Admin: 12/01/17 09:16 Dose: 50 mg Sodium Chloride () 5 - 30 ml IV UD PRN PRN Reason: SALINE FLUSH Last Admin: 11/30/17 18:40 Dose: 10 ml Tamsulosin HCl (Flomax) 0.4 mg PO QHS [facility] Last Admin: 11/30/17 22:18 Dose: 0.4 mg Code Visit Inpatient E&M: 73491 Subs Hosp L3
--- NOTE | 2017-12-01 13:45 | CASEMGMT ---
Face to Face with patient for initial transition planning/care coordination assessment done with daughter via phone d/t pt confusion. ANGELITA GALVAN introduced self and role at [facility] to daughter, voices understanding and consents to assessment at this time. Pt is sleeping room at this time in no distress. Daughter answers all questions appropriately at this time. Care providers, pharmacy, and demographics verified. See attached link. Daughter voices no further concerns/needs at this time. Daughter stresses to this RN MANDY that pt will not be going to SNF at discharge and she does not want anyone to bring this up again. Iza GOLDSTEIN updated and voices understanding. Daughter states that they will be agreeable to [facility] HHC at discharge, if needed. PLAN: Home, possibly with HHC. Elaine GOLDSTEIN CM
--- NOTE | 2017-12-01 13:52 | PN_ITS ---
Patient Problems: Active and Suspected Problems Colon distention (Acute) Subjective: Patient is a 72-year-old gentleman with multiple comorbidities including CAD status post CABG, chronic A. fib, who presented with progressive generalized weakness with associated abdominal distention 12/01/2017: Seen remains significantly weak. Potassium 2.7 this a.m., INR 4.5. Objective: GENERAL: Frail looking HEENT: Clear conjunctiva, NECK; supple, normal thyroid, CHEST: Diminished to auscultation bilaterally, HEART: Irregular S1 S2, ABDOMEN: soft, non-tender, normoactive bowel sounds, RECTAL: deferred EXTREMITIES: no clubbing, no cyanosis. RECORDS TECH: Awake; no lateralizing signs. SKIN: Dry Vitals/I&O's: Vital Signs Temp Pulse Resp BP Pulse Ox 97.8 F 62 18 105/57 L 99 12/01/17 09:12 12/01/17 10:59 12/01/17 09:12 12/01/17 09:12 12/01/17 09:12 Oxygen Delivery Method Room Air Weight: 87.7 kg Body Mass Index (BMI) 24.8 Intake and Output for Last 24 Hours 11/29/17 11/30/17 12/01/17 23:59 23:59 23:59 Intake Total 3465 / 3465 240 / 240 Output Total 950 / 950 350 / 350 Balance 2515 / 2515 -110 / -110 Laboratory Results 11/30/17 08:00: Magnesium 1.8 11/30/17 17:00: PT 66.3 H, INR 7.8 H* 11/30/17 17:00: Sodium 133 L, Potassium 2.6 L*, Chloride 94 L, Carbon Dioxide 32.0, Anion Gap 7, BUN 9, Creatinine 0.89, Estim Creat Clear Calc 87.23, Est GFR (MDRD) Af Amer 108, Est GFR (MDRD) Non-Af 89, BUN/Creatinine Ratio 10.1, Glucose 116 H, Calcium 8.1 L 12/01/17 05:25: PT 43.1 H, INR 4.5 H* 12/01/17 05:25: Sodium 136, Potassium 2.7 L*, Chloride 97 L, Carbon Dioxide 30.0 , Anion Gap 9, BUN 8, Creatinine 0.81, Estim Creat Clear Calc 95.84, Est GFR ( MDRD) Af Amer 120, Est GFR (MDRD) Non-Af 99, BUN/Creatinine Ratio 9.9 L, Glucose 100, Calcium 8.1 L Current Medications Amiodarone HCl (Cordarone) 200 mg PO DAILY [facility] Last Admin: 12/01/17 09:15 Dose: 200 mg Atorvastatin Calcium (Lipitor) 20 mg PO QHS [facility] Last Admin: 11/30/17 22:18 Dose: 20 mg Carvedilol (Coreg) 12.5 mg PO BID [facility] Last Admin: 12/01/17 09:16 Dose: 12.5 mg Ferrous Sulfate (Ferrous Sulfate) 325 mg PO BID@1200,1700 [facility] Last Admin: 12/01/17 12:11 Dose: 325 mg Furosemide (Lasix) 20 mg PO DINNER [facility] Last Admin: 11/30/17 18:40 Dose: 20 mg Furosemide (Lasix) 40 mg PO DAILY [facility] Last Admin: 12/01/17 09:16 Dose: 40 mg Potassium Chloride 10 meq/ N/A 100 mls @ 100 mls/hr IV Q1H [facility] Stop: 12/01/17 15:29 Last Admin: 12/01/17 12:11 Dose: 100 mls/hr Levothyroxine Sodium (Synthroid) 88 mcg PO DAILY@0600 [facility] Last Admin: 12/01/17 06:25 Dose: 88 mcg Losartan Potassium (Cozaar) 25 mg PO DAILY [facility] Last Admin: 12/01/17 09:15 Dose: 25 mg Magnesium Hydroxide (Milk Of Magnesia) 30 ml PO DAILY PRN PRN Reason: Constipation Nutritional Formula (Lactose Free) (Ensure Clear) 120 ml PO 4X/DAY [facility] Last Admin: 12/01/17 09:16 Dose: Not Given Potassium [facility] Sertraline HCl (Zoloft) 50 mg PO DAILY [facility] Last Admin: 12/01/17 09:16 Dose: 50 mg Sodium Chloride () 5 - 30 ml IV UD PRN PRN Reason: SALINE FLUSH Last Admin: 11/30/17 18:40 Dose: 10 ml Tamsulosin HCl (Flomax) 0.4 mg PO QHS [facility] Last Admin: 11/30/17 22:18 Dose: 0.4 mg Medical Necessity - Tobacco Use Smoking Status: Former smoker Assessment/Plan All Active Problems Bilateral leg ulcer (Acute) Colon distention (Acute) Cellulitis (Acute) Venous stasis ulcers of both lower extremities (Acute) Patient is a 72-year-old gentleman with multiple comorbidities including CAD status post CABG, chronic A. fib, who presented with progressive generalized weakness with associated abdominal distention 1. Abdominal distention imaging studies demonstrated CT of the abdomen obtained demonstrated ; Markedly gaseous distended loops of colon, particularly the sigmoid colon consultation was placed to Gen Surgery. Plan is for possible endoscopic evaluation once his electrolyte abnormalities and coagulopathy are corrected 2. Hypomagnesemia corrected per protocol with subsequent 3. Hypokalemia corrected per protocol 4. Coagulopathy due to patient being on Coumadin Coumadin held 5. CAD with previous history of CABG 6. Peripheral arterial disease status post lower extremity stents 7. Hypertension-blood pressure controlled, home medications continued with dose adjustment as needed 8. Elevated troponin attributed to demand ischemia patient remains asymptomatic 9. Chronic atrial fibrillation rate controlled on beta-blockers. Patient INR on admission was markedly elevated Coumadin subsequently held 10. Dyslipidemia-patient is on statin therapy, continued at home dose 11. Hypothyroidism-patient is on levothyroxine home dose continued 12. Depression, on Zoloft 13. Debility requested for PT OT eval and social sciences instructor to assist with discharge planning 14. BPH patient is on Flomax 15. Chronic Systolic heart failure with ejection fraction of 20% on echo performed on 07/22/2017. Currently compensated 15. DVT prophylaxis patient is on Coumadin with a supratherapeutic INR on admission Clinical Impression(s) from Imaging Studies Chest X-Ray 11/29/17 18:35 IMPRESSION: Cardiomegaly with low volume inspiration and diffuse interstitial pattern unchanged. Gaseous distention of bowel. Electronically Signed: Killian Cosby MD at 19:18 EDT , Service support , Abdomen/Pelvis CT 11/29/17 19:22 IMPRESSION: Markedly gaseous distended loops of colon, particularly the sigmoid colon. This could represent sigmoid volvulus however, there is no discrete bird beak appearance. There is some fecal retention in the rectum. Normal appendix. Small amount of left lower lobe airspace disease and effusion. Electronically Signed: Kamran Morris DO at 20:30 EDT Tel , Service support , KUB X-Ray 11/30/17 04:40 IMPRESSION: Marked persistent air distention of the sigmoid colon without beaking to suggest volvulus. Remainder of the colon is moderately distended. Electronically Signed: Rhea Hood MD at 7:36 EDT , Service support , ADDENDUM: 11/30/17 0743 Active Medications Amiodarone HCl (Cordarone) 200 mg PO DAILY [facility] Last Admin: 12/01/17 09:15 Dose: 200 mg Atorvastatin Calcium (Lipitor) 20 mg PO QHS [facility] Last Admin: 11/30/17 22:18 Dose: 20 mg Carvedilol (Coreg) 12.5 mg PO BID [facility] Last Admin: 12/01/17 09:16 Dose: 12.5 mg Ferrous Sulfate (Ferrous Sulfate) 325 mg PO BID@1200,1700 [facility] Last Admin: 12/01/17 12:11 Dose: 325 mg Furosemide (Lasix) 20 mg PO DINNER [facility] Last Admin: 11/30/17 18:40 Dose: 20 mg Furosemide (Lasix) 40 mg PO DAILY [facility] Last Admin: 12/01/17 09:16 Dose: 40 mg Potassium Chloride 10 meq/ N/A 100 mls @ 100 mls/hr IV Q1H [facility] Stop: 12/01/17 15:29 Last Admin: 12/01/17 13:49 Dose: 100 mls/hr Levothyroxine Sodium (Synthroid) 88 mcg PO DAILY@0600 [facility] Last Admin: 12/01/17 06:25 Dose: 88 mcg Losartan Potassium (Cozaar) 25 mg PO DAILY [facility] Last Admin: 12/01/17 09:15 Dose: 25 mg Magnesium Hydroxide (Milk Of Magnesia) 30 ml PO DAILY PRN PRN Reason: Constipation Nutritional Formula (Lactose Free) (Ensure Clear) 120 ml PO 4X/DAY [facility] Last Admin: 12/01/17 13:46 Dose: 120 ml Potassium Chloride (K-Dur) 40 meq PO BIDCM [facility] Sertraline HCl (Zoloft) 50 mg PO DAILY [facility] Last Admin: 12/01/17 09:16 Dose: 50 mg Sodium Chloride () 5 - 30 ml IV UD PRN PRN Reason: SALINE FLUSH Last Admin: 11/30/17 18:40 Dose: 10 ml Tamsulosin HCl (Flomax) 0.4 mg PO QHS [facility] Last Admin: 11/30/17 22:18 Dose: 0.4 mg Code Visit Inpatient E&M: 51837 Subs Hosp L3
--- NOTE | 2017-12-01 15:28 | NURSING ---
wound photo: left buttock
[2017-12-01] MEDS: Furosemide 20 MG Tablet PO (18:22)
[2017-12-01] MEDS: 0.9% NaCl Peripheral Flush Adult/Peds IV (21:44)
[2017-12-01] MEDS: Tamsulosin HCl 0.4 MG Capsule PO (21:45)
[2017-12-01] MEDS: Atorvastatin Calcium 20 MG Tablet PO (21:46)
[2017-12-02] VITALS (9 sets, daily range): BP systolic 106–113; BP diastolic 58–65; PULSE 46–66; RESP 18; TEMP 36.4–37; O2SAT 96–99
[2017-12-02] MEDS: Levothyroxine 88 MCG Tablet PO (05:42)
[2017-12-02 06:12] LABS: International Normalized Ratio 3.2; Prothrombin Time (Protime)PT. 32.7 SECONDS (11.7-14.9)
[2017-12-02 06:21] LABS: Anion Gap 8 (5-15); BUN 6 mg/dL (7-18); BUN/Creat Ratio 7.6 RATIO (10-20); Calcium,Total 8.4 mg/dL (8.5-10.1); Chloride 100 mmol/L (98-107); Creatinine, Serum 0.79 mg/dL (0.70-1.30); EST Glomerular Filtration Rate 103 mL/min (>60); Est Glom Filt Rate - Afr Amer 124 mL/min (>60); Estimated Creatinine Clearance 77.63 ml/min; Glucose 101 mg/dL (74-106); Potassium 2.8 mmol/L (3.5-5.1); Sodium Level 139 mmol/L (136-145)
[2017-12-02 06:35] LABS: Hemoglobin 11.6 g/dl (13.0-16.5); Mean Corp Hgb Conc 32.2 g/gl (32-36); Mean Corpuscular Hgb 27.3 pg (27.0-32.0); Mean Corpuscular Volume 84.7 fL (80-94); Mean Platelet Vol. 8.9 fl (6.2-12.0); Platelet Count 215 K/mm3 (150-450); RBC Distribution Width CV 16.5 % (11.6-14.6); RBC Distribution Width SD 50.3 fl (35.1-43.9); Red Blood Count 4.25 M/mm3 (4.6-6.2); White Blood Count 8.8 K/mm3 (4.4-11.0)
[2017-12-02 06:41] LABS: Scan Indicated on CBC? Y/N NO
[2017-12-02] MEDS: Spironolactone 25 MG Tablet PO (07:15)
--- NOTE | 2017-12-02 07:53 | PN.SURG_ITS ---
Patient Problems: Active and Suspected Problems Colon distention (Acute) Subjective: Patient is tolerating clear liquid diet with no nausea or vomiting. He is having no abdominal pain. - Physical Exam General: Alert, Confused, Non-Cooperative HEENT: Atraumatic Cardiovascular: Regular rate, Regular Rhythm Abdomen: Soft, Non Tender, Distended Vital Signs Temp Pulse Resp BP Pulse Ox 98.1 F 60 18 122/72 H 96 12/01/17 21:42 12/01/17 23:00 12/01/17 21:42 12/01/17 21:42 12/01/17 21:42 Oxygen Flow Rate (L/min) 2 Oxygen Delivery Method Room Air Weight: 193 lb 5.526 oz Body Mass Index (BMI) 24.8 Intake and Output for Last 24 Hours 11/30/17 12/01/17 12/02/17 23:59 23:59 23:59 Intake Total 3465 / 3465 4442 / 4442 Output Total 950 / 950 650 / 650 Balance 2515 / 2515 3792 / 3792 Laboratory Tests Past 24 Hrs 12/02/17 12/02/17 12/02/17 05:30 05:30 05:30 WBC 8.8 RBC 4.25 L Hgb 11.6 L Hct 36.0 L MCV 84.7 MCH 27.3 MCHC 32.2 RDW 16.5 H RDW Differential 50.3 H Plt Count 215 MPV 8.9 PT 32.7 H INR 3.2 Sodium 139 Potassium 2.8 L Chloride 100 Carbon Dioxide 31.0 Anion Gap 8 BUN 6 L Creatinine 0.79 Estim Creat Clear Calc 77.63 Est GFR (MDRD) Af Amer 124 Est GFR (MDRD) Non-Af 103 BUN/Creatinine Ratio 7.6 L Glucose 101 Calcium 8.4 L Magnesium 2.0 Medical Necessity - Tobacco Use Smoking Status: Former smoker Assessment/Plan All Active Problems Bilateral leg ulcer (Acute) Colon distention (Acute) Cellulitis (Acute) Venous stasis ulcers of both lower extremities (Acute) 72-year-old male with distended sigmoid colon 1. The patient is still distended but he is having no abdominal pain. He remains hypokalemic. The patient does not have a volvulus. I am trying to check the [facility] records to see if there is any prior imaging done there. I am also checking for his recent colonoscopy report from their records. 2. I am okay with the patient taking regular diet if he would like. I have no plans for an immediate colonoscopy as the indications for decompressive colonoscopy would be pain or inability to pass gas. The patient seems to be passing gas according to her his nurses and he is having no abdominal pain according to him. I am unsure why the patient is having gelatinous stools. I would be willing to do a colonoscopy as an outpatient with the patient is very confused and agitated this morning. I would discuss elective colonoscopy with the patient's family at a future time Vance Campos MD Pager: [facility] [address] [place] [address], [address] [place] [address] Office:
--- NOTE | 2017-12-02 09:43 | PCM.PN.HOSP ---
Patient Problems: Active and Suspected Problems Colon distention (Acute) Subjective: Patient seen potassium remains low at 2.8; and INR is down to 3.0 Objective: GENERAL: Frail looking HEENT: Clear conjunctiva, NECK; supple, normal thyroid, CHEST: Diminished to auscultation bilaterally, HEART: Irregular S1 S2, ABDOMEN: soft, non-tender, normoactive bowel sounds, RECTAL: deferred EXTREMITIES: no clubbing, no cyanosis. MANAGER MATERIAL: Awake; no lateralizing signs. SKIN: Dry Vitals/I&O's: Vital Signs Temp Pulse Resp BP Pulse Ox 98.4 F 55 L 18 113/65 97 12/02/17 07:25 12/02/17 07:25 12/02/17 07:25 12/02/17 07:25 12/02/17 07:25 Oxygen Flow Rate (L/min) 2 Oxygen Delivery Method Room Air Weight: 87.7 kg Body Mass Index (BMI) 24.8 Intake and Output for Last 24 Hours 11/30/17 12/01/17 12/02/17 23:59 23:59 23:59 Intake Total 3465 / 3465 4442 / 4442 Output Total 950 / 950 650 / 650 Balance 2515 / 2515 3792 / 3792 Laboratory Results 12/02/17 05:30: PT 32.7 H, INR 3.2 12/02/17 05:30: WBC 8.8, RBC 4.25 L, Hgb 11.6 L, Hct 36.0 L, MCV 84.7, MCH 27.3, MCHC 32.2, RDW 16.5 H, RDW Differential 50.3 H, Plt Count 215, MPV 8.9 12/02/17 05:30: Sodium 139, Potassium 2.8 L, Chloride 100, Carbon Dioxide 31.0, Anion Gap 8, BUN 6 L, Creatinine 0.79, Estim Creat Clear Calc 77.63, Est GFR (MDRD) Af Amer 124, Est GFR (MDRD) Non-Af 103, BUN/Creatinine Ratio 7.6 L, Glucose 101, Calcium 8.4 L, Magnesium 2.0 Current Medications Amiodarone HCl (Cordarone) 200 mg PO DAILY [facility] Last Admin: 12/01/17 09:15 Dose: 200 mg Atorvastatin Calcium (Lipitor) 20 mg PO QHS [facility] Last Admin: 12/01/17 21:46 Dose: 20 mg Carvedilol (Coreg) 12.5 mg PO BID [facility] Last Admin: 12/01/17 21:45 Dose: 12.5 mg Ferrous Sulfate (Ferrous Sulfate) 325 mg PO BID@1200,1700 [facility] Last Admin: 12/01/17 18:21 Dose: 325 mg Levothyroxine Sodium (Synthroid) 88 mcg PO DAILY@0600 [facility] Last Admin: 12/02/17 05:42 Dose: 88 mcg Losartan Potassium (Cozaar) 25 mg PO DAILY [facility] Last Admin: 12/01/17 09:15 Dose: 25 mg Magnesium Hydroxide (Milk Of Magnesia) 30 ml PO DAILY PRN PRN Reason: Constipation Nutritional Formula (Lactose Free) (Ensure Clear) 120 ml PO 4X/DAY [facility] Last Admin: 12/01/17 21:45 Dose: Not Given Potassium Chloride (K-Dur) 40 meq PO BIDCM [facility] Last Admin: 12/02/17 07:25 Dose: 40 meq Sertraline HCl (Zoloft) 50 mg PO DAILY [facility] Last Admin: 12/01/17 09:16 Dose: 50 mg Sodium Chloride () 5 - 30 ml IV UD PRN PRN Reason: SALINE FLUSH Last Admin: 12/01/17 21:44 Dose: 5 ml Spironolactone (Aldactone) 25 mg PO DAILY [facility] Last Admin: 12/02/17 07:15 Dose: 25 mg Tamsulosin HCl (Flomax) 0.4 mg PO QHS [facility] Last Admin: 12/01/17 21:45 Dose: 0.4 mg Medical Necessity - Tobacco Use Smoking Status: Former smoker Assessment/Plan All Active Problems Bilateral leg ulcer (Acute) Colon distention (Acute) Cellulitis (Acute) Venous stasis ulcers of both lower extremities (Acute) Patient is a 72-year-old gentleman with multiple comorbidities including CAD status post CABG, chronic A. fib, who presented with progressive generalized weakness with associated abdominal distention 1. Abdominal distention imaging studies demonstrated CT of the abdomen obtained demonstrated ; Markedly gaseous distended loops of colon, particularly the sigmoid colon consultation was placed to Gen Surgery. Plan is for possible endoscopic evaluation once his electrolyte abnormalities and coagulopathy are corrected possibly as outpatient 2. Hypomagnesemia corrected per protocol with subsequent 3. Hypokalemia corrected per protocol 4. Coagulopathy due to patient being on Coumadin Coumadin held 5. CAD with previous history of CABG 6. Peripheral arterial disease status post lower extremity stents 7. Hypertension-blood pressure controlled, home medications continued with dose adjustment as needed 8. Elevated troponin attributed to demand ischemia patient remains asymptomatic 9. Chronic atrial fibrillation rate controlled on beta-blockers. Patient INR on admission was markedly elevated Coumadin subsequently held 10. Dyslipidemia-patient is on statin therapy, continued at home dose 11. Hypothyroidism-patient is on levothyroxine home dose continued 12. Depression, on Zoloft 13. Debility requested for PT OT eval and health and social care teacher to assist with discharge planning 14. BPH patient is on Flomax 15. Chronic Systolic heart failure with ejection fraction of 20% on echo performed on 07/22/2017. Currently compensated 15. DVT prophylaxis patient is on Coumadin with a supratherapeutic INR on admission Clinical Impression(s) from Imaging Studies Chest X-Ray 11/29/17 18:35 IMPRESSION: Cardiomegaly with low volume inspiration and diffuse interstitial pattern unchanged. Gaseous distention of bowel. Electronically Signed: Killian Cosby MD at 19:18 EDT , Service support , Abdomen/Pelvis CT 11/29/17 19:22 IMPRESSION: Markedly gaseous distended loops of colon, particularly the sigmoid colon. This could represent sigmoid volvulus however, there is no discrete bird beak appearance. There is some fecal retention in the rectum. Normal appendix. Small amount of left lower lobe airspace disease and effusion. Electronically Signed: Kamarn Morris DO at 20:30 EDT Tel , Service support , KUB X-Ray 11/30/17 04:40 IMPRESSION: Marked persistent air distention of the sigmoid colon without beaking to suggest volvulus. Remainder of the colon is moderately distended. Electronically Signed: Rhea Hood MD at 7:36 EDT , Service support , ADDENDUM: 11/30/17 0743 Active Medications Amiodarone HCl (Cordarone) 200 mg PO DAILY [facility] Last Admin: 12/01/17 09:15 Dose: 200 mg Atorvastatin Calcium (Lipitor) 20 mg PO QHS [facility] Last Admin: 11/30/17 22:18 Dose: 20 mg Carvedilol (Coreg) 12.5 mg PO BID [facility] Last Admin: 12/01/17 09:16 Dose: 12.5 mg Ferrous Sulfate (Ferrous Sulfate) 325 mg PO BID@1200,1700 [facility] Last Admin: 12/01/17 12:11 Dose: 325 mg Furosemide (Lasix) 20 mg PO DINNER [facility] Last Admin: 11/30/17 18:40 Dose: 20 mg Furosemide (Lasix) 40 mg PO DAILY [facility] Last Admin: 12/01/17 09:16 Dose: 40 mg Potassium Chloride 10 meq/ N/A 100 mls @ 100 mls/hr IV Q1H [facility] Stop: 12/01/17 15:29 Last Admin: 12/01/17 13:49 Dose: 100 mls/hr Levothyroxine Sodium (Synthroid) 88 mcg PO DAILY@0600 [facility] Last Admin: 12/01/17 06:25 Dose: 88 mcg Losartan Potassium (Cozaar) 25 mg PO DAILY [facility] Last Admin: 12/01/17 09:15 Dose: 25 mg Magnesium Hydroxide (Milk Of Magnesia) 30 ml PO DAILY PRN PRN Reason: Constipation Nutritional Formula (Lactose Free) (Ensure Clear) 120 ml PO 4X/DAY [facility] Last Admin: 12/01/17 13:46 Dose: 120 ml Potassium Chloride (K-Dur) 40 meq PO BIDCM [facility] Sertraline HCl (Zoloft) 50 mg PO DAILY [facility] Last Admin: 12/01/17 09:16 Dose: 50 mg Sodium Chloride () 5 - 30 ml IV UD PRN PRN Reason: SALINE FLUSH Last Admin: 11/30/17 18:40 Dose: 10 ml Tamsulosin HCl (Flomax) 0.4 mg PO QHS [facility] Last Admin: 11/30/17 22:18 Dose: 0.4 mg Code Visit Inpatient E&M: 62226 Subs Hosp L2
[2017-12-02] MEDS: Carvedilol 12.5 MG Tablet PO ×2 (09:55→21:01)
[2017-12-02] MEDS: Amiodarone 200 MG Tablet PO (09:55)
[2017-12-02] MEDS: Losartan Potassium 25 MG Tablet PO (09:55)
[2017-12-02] MEDS: Sertraline 50 MG Tablet PO (09:55)
[2017-12-02] MEDS: Ferrous Sulfate 325 MG Tablet PO ×2 (13:03→17:27)
[2017-12-02] MEDS: Tamsulosin HCl 0.4 MG Capsule PO (21:01)
[2017-12-02] MEDS: Atorvastatin Calcium 20 MG Tablet PO (21:01)
[2017-12-03] VITALS (12 sets, daily range): BP systolic 104–149; BP diastolic 54–88; PULSE 56–104; RESP 16–17; TEMP 36.4–37.6; O2SAT 96–98
[2017-12-03] MEDS: Levothyroxine 88 MCG Tablet PO (05:42)
[2017-12-03] MEDS: Losartan Potassium 25 MG Tablet PO (08:24)
[2017-12-03] MEDS: Carvedilol 12.5 MG Tablet PO ×2 (08:24→21:35)
[2017-12-03] MEDS: Sertraline 50 MG Tablet PO (08:24)
[2017-12-03] MEDS: Spironolactone 25 MG Tablet PO (08:25)
[2017-12-03] MEDS: Amiodarone 200 MG Tablet PO (08:25)
[2017-12-03 08:32] LABS: Hematocrit 33.7 % (40-54); Hemoglobin 10.8 g/dl (13.0-16.5); Mean Corpuscular Hgb 26.8 pg (27.0-32.0); Mean Corpuscular Volume 83.6 fL (80-94); Mean Platelet Vol. 8.1 fl (6.2-12.0); Platelet Count 178 K/mm3 (150-450); RBC Distribution Width CV 16.6 % (11.6-14.6); RBC Distribution Width SD 50.4 fl (35.1-43.9); Red Blood Count 4.03 M/mm3 (4.6-6.2); Scan Indicated on CBC? Y/N NO; White Blood Count 9.5 K/mm3 (4.4-11.0)
[2017-12-03 09:10] LABS: Anion Gap 6 (5-15); BUN 7 mg/dL (7-18); BUN/Creat Ratio 8.1 RATIO (10-20); Calcium,Total 7.9 mg/dL (8.5-10.1); Chloride 99 mmol/L (98-107); Creatinine, Serum 0.86 mg/dL (0.70-1.30); EST Glomerular Filtration Rate 93 mL/min (>60); Est Glom Filt Rate - Afr Amer 112 mL/min (>60); Estimated Creatinine Clearance 90.27 ml/min; Glucose 98 mg/dL (74-106); Magnesium 1.8 mg/dL (1.6-2.6); Potassium 2.9 mmol/L (3.5-5.1); Sodium Level 134 mmol/L (136-145)
[2017-12-03 09:20] LABS: International Normalized Ratio 2.9; Prothrombin Time (Protime)PT. 30.8 SECONDS (11.7-14.9)
--- NOTE | 2017-12-03 09:58 | PCM.PN.SRG ---
Patient Problems: Active and Suspected Problems Colon distention (Acute) Subjective: Patient evaluated resting comfortably in bed. He denies abdominal pain/discomfort. He had multiple formed mucous-like stools over night per nursing staff. He denies passing flatus. He is confused. He is tolerating a regular diet. Denies nausea, vomiting. - Physical Exam General: Alert, Oriented x3, Cooperative Abdomen: Non Tender, Hypoactive Bowel Sounds, Distended Vital Signs Temp Pulse Resp BP Pulse Ox 98.5 F 58 L 16 126/66 H 98 12/03/17 08:20 12/03/17 08:20 12/03/17 08:20 12/03/17 08:20 12/03/17 08:20 Oxygen Flow Rate (L/min) 2 Oxygen Delivery Method Room Air Weight: 193 lb 5.526 oz Body Mass Index (BMI) 24.8 Intake and Output for Last 24 Hours 12/01/17 12/02/17 12/03/17 23:59 23:59 23:59 Intake Total 4442 / 4442 1620 / 1620 100 / 100 Output Total 650 / 650 Balance 3792 / 3792 1620 / 1620 100 / 100 Laboratory Tests Past 24 Hrs 12/03/17 12/03/17 12/03/17 08:20 08:20 08:20 WBC 9.5 RBC 4.03 L Hgb 10.8 L Hct 33.7 L MCV 83.6 MCH 26.8 L MCHC 32.0 RDW 16.6 H RDW Differential 50.4 H Plt Count 178 MPV 8.1 PT 30.8 H INR 2.9 Sodium 134 L Potassium 2.9 L Chloride 99 Carbon Dioxide 29.0 Anion Gap 6 BUN 7 Creatinine 0.86 Estim Creat Clear Calc 90.27 Est GFR (MDRD) Af Amer 112 Est GFR (MDRD) Non-Af 93 BUN/Creatinine Ratio 8.1 L Glucose 98 Calcium 7.9 L Magnesium 1.8 Medical Necessity - Tobacco Use Smoking Status: Former smoker Assessment/Plan All Active Problems Bilateral leg ulcer (Acute) Colon distention (Acute) Cellulitis (Acute) Venous stasis ulcers of both lower extremities (Acute) I am following this patient in conjunction with Dr. Kerr in Dr. Campos's absence. Impression: Abdominal distention Potassium low Will discuss patient with Dr. Kerr Likely colonoscopy with Dr. Campos as an outpatient Code Visit Inpatient E&M: 50964 Subs Hosp L1
--- NOTE | 2017-12-03 12:33 | CASEMGMT ---
Addendum entered by Saul Denise 12/03/17 13:18: Inquired about pt's walker. Daughter states he has a standard walker, that pt is able to use it well, and does not feel that he needs a wheeled walker at this time. Original Note: ANGELITA GALVAN NOTE: -Discussion with daughter @ bedside re: [facility]. Daughter states she is agreeable for pt to have [facility] services for pt upon discharge if he needs it. Daughter made aware in order for him to receive therapy [facility] services that Evaluations by PT/OT would need to be completed so they can give their recommendations. Daughter states pt may be more agreeable to therapy later today, stating, they just came in at the wrong time. -Phone call to WANDA Thrasher, @ [facility] and made aware of probable d/c tomorrow 12/04/17. [facility] states they are able to take pt for alf and PT if pt needs. Awaiting PT/OT eval. Artem RUIZ RN, CM
[2017-12-03] MEDS: Ferrous Sulfate 325 MG Tablet PO ×2 (13:18→16:07)
[2017-12-03] MEDS: 0.9% NaCl Peripheral Flush Adult/Peds IV ×2 (13:18→20:11)
--- NOTE | 2017-12-03 13:31 | PN_ITS ---
<Toribio Lott - Last Filed: 12/03/17 13:26> Patient Problems: Active and Suspected Problems Colon distention (Acute) Subjective: No complaints. Tired - didnt sleep last night. No cough/sob/fever/chills/adominal pain. Last BM this AM loose. - Physical Exam General: Alert, Oriented x3, Cooperative HEENT: Atraumatic, PERRLA, EOMI, Normocephalic Neck: Supple, No JVD, Negative Carotid Bruits Lungs: Clear to auscultation, Normal air movement Cardiovascular: Regular rate, No murmurs Abdomen: Bowel Sounds Present, Soft, Non Tender Extremities: No edema, Capillary Refill Less than 3 Seconds Skin: No rashes, No breakdown Musculoskeletal: No Tenderness to Palpation of Joints or Extremities Neurological: Cranial nerves II-XII grossly intact Psych/Mental Status: Normal Affect, Appropriate, Alert and oriented to time, place, person, mood and affect Vital Signs Temp Pulse Resp BP Pulse Ox 98.5 F 56 L 16 126/66 H 98 12/03/17 08:20 12/03/17 11:05 12/03/17 08:20 12/03/17 08:20 12/03/17 08:20 Oxygen Flow Rate (L/min) 2 Oxygen Delivery Method Room Air Weight: 193 lb 5.526 oz Body Mass Index (BMI) 24.8 Intake and Output for Last 24 Hours 12/01/17 12/02/17 12/03/17 23:59 23:59 23:59 Intake Total 4442 / 4442 1620 / 1620 450 / 450 Output Total 650 / 650 Balance 3792 / 3792 1620 / 1620 450 / 450 Laboratory Tests Past 24 Hrs 12/03/17 12/03/17 12/03/17 08:20 08:20 08:20 WBC 9.5 RBC 4.03 L Hgb 10.8 L Hct 33.7 L MCV 83.6 MCH 26.8 L MCHC 32.0 RDW 16.6 H RDW Differential 50.4 H Plt Count 178 MPV 8.1 PT 30.8 H INR 2.9 Sodium 134 L Potassium 2.9 L Chloride 99 Carbon Dioxide 29.0 Anion Gap 6 BUN 7 Creatinine 0.86 Estim Creat Clear Calc 90.27 Est GFR (MDRD) Af Amer 112 Est GFR (MDRD) Non-Af 93 BUN/Creatinine Ratio 8.1 L Glucose 98 Calcium 7.9 L Magnesium 1.8 Medical Necessity - Tobacco Use Smoking Status: Former smoker Assessment/Plan All Active Problems Bilateral leg ulcer (Acute) Colon distention (Acute) Cellulitis (Acute) Venous stasis ulcers of both lower extremities (Acute) 1. Hypokalemia 2/2 gi loss diarrhea - imrpvoing slowly. GI following - no plan for further inpatient workup. 2. Low mag - resolved 3. Coumadin coagulopathy - resolved 4. PAD - hx stents 5. CAD - prior CABG - continue home meds 6. Elevated trop - demand ischemia. no further workup. 7. HTN - stable 8. HLD - statin 9. Chronic AF - Coumadin. Restart tomorrow if appropriate. Continue BB. 10. Depression - zoloft. 11. Hypothyroid - continue synthroid 12. Debility - PTOT, pt refused PT this AM. Fm not interested in SNF at all - refuse to discuss it 13. Hx CHF, systolic - no evidence of acute exacerbation DVT ppx: coumadin DC planning: Possibly home with home health care tomorrow This patient was seen by Toribio Lott PA-C under the supervision of Doctor Christi. <Archie Barraza - Last Filed: 12/03/17 14:54> - Physical Exam Vital Signs Temp Pulse Resp BP Pulse Ox 98.0 F 104 H 16 104/56 L 97 12/03/17 13:36 12/03/17 13:36 12/03/17 13:36 12/03/17 13:36 12/03/17 13:36 Oxygen Flow Rate (L/min) 2 Oxygen Delivery Method Room Air Weight: 87.7 kg Body Mass Index (BMI) 24.8 Intake and Output for Last 24 Hours 12/01/17 12/02/17 12/03/17 23:59 23:59 23:59 Intake Total 4442 / 4442 1620 / 1620 450 / 450 Output Total 650 / 650 Balance 3792 / 3792 1620 / 1620 450 / 450 Laboratory Tests Past 24 Hrs 12/03/17 12/03/17 12/03/17 08:20 08:20 08:20 WBC 9.5 RBC 4.03 L Hgb 10.8 L Hct 33.7 L MCV 83.6 MCH 26.8 L MCHC 32.0 RDW 16.6 H RDW Differential 50.4 H Plt Count 178 MPV 8.1 PT 30.8 H INR 2.9 Sodium 134 L Potassium 2.9 L Chloride 99 Carbon Dioxide 29.0 Anion Gap 6 BUN 7 Creatinine 0.86 Estim Creat Clear Calc 90.27 Est GFR (MDRD) Af Amer 112 Est GFR (MDRD) Non-Af 93 BUN/Creatinine Ratio 8.1 L Glucose 98 Calcium 7.9 L Magnesium 1.8 Assessment/Plan This patient was seen in conjunction with Toribio Lott PA-C. I have independently interviewed and examined the patient and reviewed pertinent historical, laboratory, and other data. Please refer to Toribio Lott PA-C note for details of this patient's presentation, findings, and recommendations. I have reviewed Toribio Lott PA-C note and concur with documented findings. In brief, Patient is a 72-year-old gentleman with multiple comorbidities including CAD status post CABG, chronic A. fib, who presented with progressive generalized weakness with associated abdominal distention 12/03/2017: Patient's electrolyte abnormalities namely hypokalemia persist despite aggressive resuscitation Physical Examination: GENERAL: cooperative HEENT: Atraumatic moist oral mucosa EYES; Anicteric, Normal Conjunctiva NECK; supple, normal thyroid, no distended JVD. RESPIRATORY: Diminished to auscultation bilaterally, CARDIOVASCULAR: Regular S1 S2, no audible murmurs GI: soft, non-tender, normoactive bowel sounds, : No Renal angle tenderness; SKIN: No Rash PSYCH; Normal affect Assessment: 1. Abdominal distention secondary to colonic ileus as a result of patient's electrolyte abnormalities imaging studies demonstrated CT of the abdomen obtained demonstrated ; Markedly gaseous distended loops of colon, particularly the sigmoid colon consultation was placed to Gen Surgery. Plan is for possible endoscopic evaluation once his electrolyte abnormalities and coagulopathy are corrected possibly as outpatient 2. Hypomagnesemia corrected per protocol with subsequent 3. Hypokalemia corrected per protocol 4. Coagulopathy due to patient being on Coumadin Coumadin held 5. CAD with previous history of CABG 6. Peripheral arterial disease status post lower extremity stents 7. Hypertension-blood pressure controlled, home medications continued with dose adjustment as needed 8. Elevated troponin attributed to demand ischemia patient remains asymptomatic 9. Chronic atrial fibrillation rate controlled on beta-blockers. Patient INR on admission was markedly elevated Coumadin subsequently held 10. Dyslipidemia-patient is on statin therapy, continued at home dose 11. Hypothyroidism-patient is on levothyroxine home dose continued 12. Depression, on Zoloft 13. Debility requested for PT OT eval and social worker delinquency prevention to assist with discharge planning 14. BPH patient is on Flomax 15. Chronic Systolic heart failure with ejection fraction of 20% on echo performed on 07/22/2017. Currently compensated 16. DVT prophylaxis patient is on Coumadin with a supratherapeutic INR on admission 17. Stage II gluteal decubitus ulcer: Consult placed to wound care nurse Recommendations: 1. I have discussed the results of my overview and impressions with the patient 2. Options for management were reviewed Code Visit Inpatient E&M: 30021 Subs Hosp L2
[2017-12-03] MEDS: Tamsulosin HCl 0.4 MG Capsule PO (21:35)
[2017-12-03] MEDS: Atorvastatin Calcium 20 MG Tablet PO (21:35)
[2017-12-04] VITALS (7 sets, daily range): BP systolic 121–157; BP diastolic 69–84; PULSE 55–64; RESP 16–18; TEMP 36.9; O2SAT 96–98
[2017-12-04] MEDS: Levothyroxine 88 MCG Tablet PO (05:20)
--- NOTE | 2017-12-04 07:08 | PCM.PN.SRG ---
Patient Problems: Active and Suspected Problems Colon distention (Acute) Subjective: Patient complains he is getting interrupted while trying to sleep, wants to go home denies any abdominal pain states he has flatus and no nausea or vomiting - Physical Exam General: Alert, Cooperative, No apparent distress Abdomen: Non Tender - No guarding or rebound, Distended Vital Signs Temp Pulse Resp BP Pulse Ox 98.4 F 55 L 18 157/84 H 98 12/04/17 03:32 12/04/17 03:32 12/04/17 03:32 12/04/17 03:32 12/04/17 04:04 Oxygen Flow Rate (L/min) 2 Oxygen Delivery Method Room Air Weight: 193 lb 5.526 oz Body Mass Index (BMI) 24.8 Intake and Output for Last 24 Hours 12/02/17 12/03/17 12/04/17 23:59 23:59 23:59 Intake Total 1620 / 1620 1306 / 1306 455 / 455 Balance 1620 / 1620 1306 / 1306 455 / 455 Laboratory Tests Past 24 Hrs 12/03/17 12/03/17 12/03/17 08:20 08:20 08:20 WBC 9.5 RBC 4.03 L Hgb 10.8 L Hct 33.7 L MCV 83.6 MCH 26.8 L MCHC 32.0 RDW 16.6 H RDW Differential 50.4 H Plt Count 178 MPV 8.1 PT 30.8 H INR 2.9 Sodium 134 L Potassium 2.9 L Chloride 99 Carbon Dioxide 29.0 Anion Gap 6 BUN 7 Creatinine 0.86 Estim Creat Clear Calc 90.27 Est GFR (MDRD) Af Amer 112 Est GFR (MDRD) Non-Af 93 BUN/Creatinine Ratio 8.1 L Glucose 98 Calcium 7.9 L Magnesium 1.8 Medical Necessity - Tobacco Use Smoking Status: Former smoker Assessment/Plan All Active Problems Bilateral leg ulcer (Acute) Colon distention (Acute) Cellulitis (Acute) Venous stasis ulcers of both lower extremities (Acute) 72-year-old male with colonic distention, hypokalemia Patient tolerating regular diet. And admits to positive flatus. Plan for an outpatient colonoscopy Hypokalemia-replace per primary, labs pending Coleen Kerr M.D. Pager: [phone] [facility] [address] [place] [address], [address] [place] [address] Office: [phone]
--- NOTE | 2017-12-04 07:11 | PN.SURG_ITS ---
Patient Problems: Active and Suspected Problems Colon distention (Acute) Subjective: Patient complains he is getting interrupted while trying to sleep, wants to go home denies any abdominal pain states he has flatus and no nausea or vomiting - Physical Exam General: Alert, Cooperative, No apparent distress Abdomen: Non Tender - No guarding or rebound, Distended Vital Signs Temp Pulse Resp BP Pulse Ox 98.4 F 55 L 18 157/84 H 98 12/04/17 03:32 12/04/17 03:32 12/04/17 03:32 12/04/17 03:32 12/04/17 04:04 Oxygen Flow Rate (L/min) 2 Oxygen Delivery Method Room Air Weight: 193 lb 5.526 oz Body Mass Index (BMI) 24.8 Intake and Output for Last 24 Hours 12/02/17 12/03/17 12/04/17 23:59 23:59 23:59 Intake Total 1620 / 1620 1306 / 1306 455 / 455 Balance 1620 / 1620 1306 / 1306 455 / 455 Laboratory Tests Past 24 Hrs 12/03/17 12/03/17 12/03/17 08:20 08:20 08:20 WBC 9.5 RBC 4.03 L Hgb 10.8 L Hct 33.7 L MCV 83.6 MCH 26.8 L MCHC 32.0 RDW 16.6 H RDW Differential 50.4 H Plt Count 178 MPV 8.1 PT 30.8 H INR 2.9 Sodium 134 L Potassium 2.9 L Chloride 99 Carbon Dioxide 29.0 Anion Gap 6 BUN 7 Creatinine 0.86 Estim Creat Clear Calc 90.27 Est GFR (MDRD) Af Amer 112 Est GFR (MDRD) Non-Af 93 BUN/Creatinine Ratio 8.1 L Glucose 98 Calcium 7.9 L Magnesium 1.8 Medical Necessity - Tobacco Use Smoking Status: Former smoker Assessment/Plan All Active Problems Bilateral leg ulcer (Acute) Colon distention (Acute) Cellulitis (Acute) Venous stasis ulcers of both lower extremities (Acute) 72-year-old male with colonic distention, hypokalemia Patient tolerating regular diet. And admits to positive flatus. Plan for an outpatient colonoscopy Hypokalemia-replace per primary, labs pending Coleen Kerr M.D. Pager: [phone] [facility] [address] [place] [address], [address] [place] [address] Office: [phone]
[2017-12-04 08:17] LABS: Anion Gap 6 (5-15); BUN 7 mg/dL (7-18); BUN/Creat Ratio 8.9 RATIO (10-20); Calcium,Total 8.1 mg/dL (8.5-10.1); Chloride 103 mmol/L (98-107); Creatinine, Serum 0.79 mg/dL (0.70-1.30); EST Glomerular Filtration Rate 103 mL/min (>60); Est Glom Filt Rate - Afr Amer 124 mL/min (>60); Estimated Creatinine Clearance 77.63 ml/min; Glucose 99 mg/dL (74-106); Potassium 3.7 mmol/L (3.5-5.1); Sodium Level 136 mmol/L (136-145)
[2017-12-04] MEDS: Amiodarone 200 MG Tablet PO (09:40)
[2017-12-04] MEDS: Losartan Potassium 25 MG Tablet PO (09:40)
[2017-12-04] MEDS: Carvedilol 12.5 MG Tablet PO (09:40)
[2017-12-04] MEDS: Spironolactone 25 MG Tablet PO (09:40)
[2017-12-04] MEDS: Sertraline 50 MG Tablet PO (09:40)
--- NOTE | 2017-12-04 09:42 | DCINST_ITS ---
- Discharge Diagnoses Current Active Problems: Current Active and Chronic Problems Colon distention (Acute) Allergies/Adverse Reactions: Allergies latex Allergy (Verified 08/19/17 08:39) Rash LEEANN Inhibitors Adverse Reaction (Verified 08/19/17 08:39) Other Medications to take at Discharge Amiodarone HCl 200 mg PO DAILY 10/28/16 Atorvastatin Calcium [Lipitor] 20 mg PO QHS 10/28/16 Carvedilol [Coreg (Beta Kaycee)] 12.5 mg PO BID 10/28/16 Levothyroxine [Synthroid] 88 mcg PO DAILY 10/28/16 Losartan Potassium 25 mg PO DAILY 10/28/16 Tamsulosin HCl [Flomax] 0.4 mg PO QHS 10/28/16 Sertraline HCl [Zoloft] 50 mg PO DAILY 07/21/17 Clopidogrel Bisulfate [Plavix] 75 mg PO DAILY 11/30/17 Ferrous Sulfate 325 mg PO BIDCM 11/30/17 Furosemide [Lasix] 20 mg PO DAILY #30 tab 12/04/17 Potassium Chloride [K-Dur] 20 meq PO BIDCM #60 tab 12/04/17 Spironolactone [Aldactone] 25 mg PO DAILY #30 tab 12/04/17 Warfarin [Coumadin] 3 mg PO DAILY #30 tab 12/04/17 The following prescriptions were given: Furosemide [Lasix] 20 mg PO DAILY #30 tab Potassium Chloride [K-Dur] 20 meq PO BIDCM #60 tab Spironolactone [Aldactone] 25 mg PO DAILY #30 tab Warfarin [Coumadin] 3 mg PO DAILY #30 tab Orders to be completed after discharge: Basic Metabolic Profile (BMP) Time Frame: 12/08/17, Location: Laboratory Prothrombin Time w/INR Time Frame: 12/08/17, Location: Laboratory Primary Care Physician: Donnie Marrero DO [Primary Care Provider] - Please follow up with your Primary Care Physician in: [place] 12/08/2017 for repeat BMP and INR check Test Results: Test results from this visit will be discussed in further detail at your follow- up appointment, if applicable. Please Follow Up With: Donnie Marrero DO Proposed Discharge Date: 12/04/17
--- NOTE | 2017-12-04 09:44 | PCM.DC.SUM ---
Discharge Date and Diagnosis - Problem List Patient Problems: Active and Suspected Problems Colon distention (Acute) Date of Admission: 11/30/17 Date of Discharge: 12/04/17 - Primary Discharge Diagnosis Active and Suspected Problems Colon distention (Acute) - Secondary Discharge Diagnosis Chronic Problems Bilateral leg ulcer (Chronic) GI bleeding (Chronic) Hearing deficit (Chronic) Hypertension (Chronic) A-fib (Chronic) Ulcer of right lower extremity (Chronic) Ulcer of right foot (Chronic) PAD (peripheral artery disease) (Chronic) Systolic congestive heart failure (Chronic) Aortic stenosis (Chronic) Pulmonary hypertension (Chronic) Ischemic cardiomyopathy (Chronic) Iron deficiency anemia (Chronic) BPH (benign prostatic hyperplasia) (Chronic) Splenomegaly (Chronic) Gallbladder sludge (Chronic) Fatty infiltration of liver (Chronic) Cellulitis (Chronic) Venous stasis ulcers of both lower extremities (Chronic) PAD (peripheral artery disease) (Chronic) Stage III chronic kidney disease (Chronic) Chronic atrial fibrillation (Chronic) Status post coronary artery bypass graft (Chronic) Decubitus ulcer of sacral area (Chronic) Hypothyroidism (Chronic) CVA (cerebral vascular accident) (Chronic) CAD (coronary artery disease) (Chronic) Hospital Course and Treatment Imaging Results: Clinical Impression(s) from Imaging Studies Chest X-Ray 11/29/17 18:35 IMPRESSION: Cardiomegaly with low volume inspiration and diffuse interstitial pattern unchanged. Gaseous distention of bowel. Electronically Signed: Killian Cosby MD at 19:18 EDT , Service support , Abdomen/Pelvis CT 11/29/17 19:22 IMPRESSION: Markedly gaseous distended loops of colon, particularly the sigmoid colon. This could represent sigmoid volvulus however, there is no discrete bird beak appearance. There is some fecal retention in the rectum. Normal appendix. Small amount of left lower lobe airspace disease and effusion. Electronically Signed: Kamran Morris DO at 20:30 EDT Tel , Service support , KUB X-Ray 11/30/17 04:40 IMPRESSION: Marked persistent air distention of the sigmoid colon without beaking to suggest volvulus. Remainder of the colon is moderately distended. Electronically Signed: Rhea Hood MD at 7:36 EDT , Service support , ADDENDUM: 11/30/17 0743 Consultations 11/29/17 23:31 Consult: Onc/Wound/airbrush artist photography Routine Comment: Reason for Consult:: left buttock pressure ulcer Summary of Care Provided: Patient is a 72-year-old gentleman with multiple comorbidities including CAD status post CABG, chronic A. fib, who presented with progressive generalized weakness with associated abdominal distention 1. Abdominal distention imaging studies demonstrated CT of the abdomen obtained demonstrated ; Markedly gaseous distended loops of colon, particularly the sigmoid colon consultation was placed to Gen Surgery. Plan is for possible endoscopic evaluation once his electrolyte abnormalities and coagulopathy are corrected possibly as outpatient 2. Hypomagnesemia corrected per protocol with subsequent potassium prescription was written on discharge patient was instructed to follow-up with PCP on 12/08/2017 to have repeat BMP done since patient was discharged home on both Aldactone and potassium 3. Hypokalemia corrected per protocol 4. Coagulopathy due to patient being on Coumadin; Coumadin held patient's Coumadin dose was decreased on discharge 30 mg daily. He was instructed to follow-up with his primary care physician Dr. Donnie Marrero on 12/08/2017 to have a repeat INR done 5. CAD with previous history of CABG 6. Peripheral arterial disease status post lower extremity stents 7. Hypertension-blood pressure controlled, home medications continued with dose adjustment as needed 8. Elevated troponin attributed to demand ischemia patient remains asymptomatic 9. Chronic atrial fibrillation rate controlled on beta-blockers. Patient INR on admission was markedly elevated Coumadin subsequently held 10. Dyslipidemia-patient is on statin therapy, continued at home dose 11. Hypothyroidism-patient is on levothyroxine home dose continued 12. Depression, on Zoloft 13. Debility requested for PT OT eval and high school social studies tutor to assist with discharge planning 14. BPH patient is on Flomax 15. Chronic Systolic heart failure with ejection fraction of 20% on echo performed on 07/22/2017. Currently compensated 15. DVT prophylaxis patient is on Coumadin with a supratherapeutic INR on admission 16. Stage II gluteal decubitus ulcer: Consult placed to wound care nurse Physical Examination at the time of discharge: GENERAL: cooperative HEENT: Atraumatic moist oral mucosa EYES; Anicteric, Normal Conjunctiva NECK; supple, normal thyroid, no distended JVD. RESPIRATORY: Diminished to auscultation bilaterally, CARDIOVASCULAR: Regular S1 S2, no audible murmurs GI: soft, non-tender, normoactive bowel sounds, : No Renal angle tenderness; SKIN: No Rash PSYCH; Normal affect Time spent on discharge; 35 minutes Discharge Diet: No Restrictions Home Medications: Medications to take at Discharge Amiodarone HCl 200 mg PO DAILY 10/28/16 Atorvastatin Calcium [Lipitor] 20 mg PO QHS 10/28/16 Carvedilol [Coreg (Beta Kaycee)] 12.5 mg PO BID 10/28/16 Levothyroxine [Synthroid] 88 mcg PO DAILY 10/28/16 Losartan Potassium 25 mg PO DAILY 10/28/16 Tamsulosin HCl [Flomax] 0.4 mg PO QHS 10/28/16 Sertraline HCl [Zoloft] 50 mg PO DAILY 07/21/17 Clopidogrel Bisulfate [Plavix] 75 mg PO DAILY 11/30/17 Ferrous Sulfate 325 mg PO BIDCM 11/30/17 Furosemide [Lasix] 20 mg PO DAILY #30 tab 12/04/17 Potassium Chloride [K-Dur] 20 meq PO BIDCM #60 tab 12/04/17 Spironolactone [Aldactone] 25 mg PO DAILY #30 tab 12/04/17 Warfarin [Coumadin] 3 mg PO DAILY #30 tab 12/04/17 Following Prescrptions Were Given to Patient: Furosemide [Lasix] 20 mg PO DAILY #30 tab Potassium Chloride [K-Dur] 20 meq PO BIDCM #60 tab Spironolactone [Aldactone] 25 mg PO DAILY #30 tab Warfarin [Coumadin] 3 mg PO DAILY #30 tab Other Amb Orders: Basic Metabolic Profile (BMP) Time Frame: 12/08/17, Location: Laboratory Prothrombin Time w/INR Time Frame: 12/08/17, Location: Laboratory Primary Care Physician: Donnie Marrero DO [Primary Care Provider] - Please follow up with your Primary Care Physician in: [place] 12/08/2017 for repeat BMP and INR check Please Follow Up With: Donnie Marrero DO Disposition: Home Minutes spent on discharge:: 35 Patient Condition:: Stable Medical Necessity - Tobacco Use Smoking Status: Former smoker Meaningful Use Info Meaningful Use Diagnoses (Choose all that apply): None applicable Code Visit Inpatient E&M: 59087 Disch Hosp
--- NOTE | 2017-12-04 10:08 | CASEMGMT ---
Call to Anna Marie at [facility] and she is aware that pt to be discharged today. Anna Marie voices no further questions at this time. Elaine GOLDSTEIN CM
[2017-12-04] MEDS: Ferrous Sulfate 325 MG Tablet PO (14:22)
--- NOTE | 2017-12-05 13:11 | CASEMGMT ---
ANGELITA GALVAN DC Phone call DC DATE: 12/04/17 TIFFANY 13/STRATA 4 DC Disposition: Home with home health -attempted call, no answer and no message machine.
== END 2017-12-04 15:19 | disposition home health service (06) | DRG 394 ==
LOC: ED 19:31 → PCU 11-30 00:19
PROVIDERS: Internal Medicine; Surgery; Admitting Provider Family Medicine; Emergency Provider Emergency Medicine; Family Provider Student in an Organized Health Care Education/Training Program; PCP Student in an Organized Health Care Education/Training Program; Visit Provider Internal Medicine
DX: K63.89 Other specified diseases of intestine (principal); I13.0 Hypertensive heart and chronic kidney disease with heart failure and stage 1 through stage 4 chronic kidney disease, or unspecified chronic kidney disease; I24.8 Other forms of acute ischemic heart disease; I50.22 Chronic systolic (congestive) heart failure; E87.6 Hypokalemia; Z23 Encounter for immunization; L89.322 Pressure ulcer of left buttock, stage 2; I27.20 Pulmonary hypertension, unspecified; I25.5 Ischemic cardiomyopathy; I35.0 Nonrheumatic aortic (valve) stenosis; D50.9 Iron deficiency anemia, unspecified; I73.9 Peripheral vascular disease, unspecified; I87.2 Venous insufficiency (chronic) (peripheral); R79.1 Abnormal coagulation profile; N18.3 Chronic kidney disease, stage 3 (moderate); I25.10 Atherosclerotic heart disease of native coronary artery without angina pectoris; E03.9 Hypothyroidism, unspecified; I48.2 Chronic atrial fibrillation; N40.0 Benign prostatic hyperplasia without lower urinary tract symptoms; E78.5 Hyperlipidemia, unspecified; F32.9 Major depressive disorder, single episode, unspecified; R53.81 Other malaise; Z79.01 Long term (current) use of anticoagulants; Z79.899 Other long term (current) drug therapy; Z95.1 Presence of aortocoronary bypass graft
CPT/HCPCS: 36415; 71045; 74018; 74177; 80048; 80053; 81001; 83605; 83690; 83735; 84100; 84443; 84484; 85025; 85027; 85610; 93005; 97116; 97162; 97166; 97802; 99285; J7030; J7040; P9612; Q9967; 90686; A4216

== ENCOUNTER 2018-03-15 13:09 | Inpatient (IN) | payer MEDICARE, SELFPAY ==
[2018-03-15] VITALS (14 sets, daily range): BP systolic 99–121; BP diastolic 53–73; PULSE 62–75; RESP 16–20; TEMP 36.2–36.7; O2SAT 94–98; BMI 24.0; BMI 22.0
--- NOTE | 2018-03-15 13:24 | NURSING ---
Addendum entered by Unique Duval 03/15/18 15:02: 1323 STROKE ALERT CALLED. Original Note: STROKE ALERT CALLED
--- NOTE | 2018-03-15 13:29 | CT_ITS ---
STUDY: CTA NECK WITH AND WITHOUT CONTRAST REASON FOR EXAM: Male, 72 years old. Stroke protocol RADIATION DOSAGE (If Supplied By Facility): CTDIvol = ( 27.25 ) mGy, DLP = ( 700.05 ) mGycm TECHNIQUE: CT angiography with multi-detector data acquisition was performed from the aortic arch to the skull base prior to and after intravenous administration of 100CC ml of Isovue 370 contrast. MIP images were reconstructed from the axial data set. Post-processing of the angiographic images was performed, with multiplanar reformation and 3D reconstruction. Individualized dose optimization techniques were used for this CT. COMPARISON: Head CT from earlier today. FINDINGS: AORTIC ARCH: There is atherosclerosis of the aortic arch extending into the brachiocephalic arteries, however, no hemodynamically significant stenosis. Visualized lung parenchyma is unremarkable except for mild scattered interstitial reticulation/fibrotic changes. RIGHT CAROTID ARTERIES: There is atherosclerosis of the right common carotid artery with tortuosity. A right carotid artery stent is identified which opacifies normally. No hemodynamically significant stenosis is seen. There is atherosclerotic tortuous elongation of the cervical portion of the right internal carotid artery. Normal origin of the right external carotid artery (ECA). LEFT CAROTID ARTERIES: Atherosclerosis of the left common carotid artery with tortuosity. Left carotid stent opacifies normally without evidence of thrombosis or hemodynamically significant stenosis. There is atherosclerotic tortuous elongation of the cervical portion of the left internal carotid artery. Normal origin of the left external carotid artery (ECA). VERTEBRAL ARTERIES: There is enhancement within the bilateral vertebral arteries with a small (intracranial) left vertebral artery, and a dominant right vertebral artery. Mild atherosclerosis of the bilateral vertebral arteries without demonstrated significant stenosis. There are degenerative changes of the cervical spine. No destructive bony process is seen. There is cerumen of the right external auditory canal. IMPRESSION: 1. Bilateral carotid artery stents (and atherosclerosis) without hemodynamically significant stenosis identified. 2. No arterial dissection. Electronically Signed: Jhony Lizama MD at 14:16 EST , Service support , STUDY: CTA OF THE BRAIN REASON FOR EXAM: Male, 72 years old. Stroke protocol RADIATION DOSAGE (If Supplied By Facility): CTDIvol = ( 27.25 ) mGy, DLP = ( 700.05 ) mGycm TECHNIQUE: CT angiography was performed with a multi-detector CT scanner. Data acquisition was obtained from the skull base through the vertex following intravenous administration of 100 ml of Isovue-370. MIP images were reconstructed from the axial data set. Post-processing of the angiographic images was performed, with multiplanar reformation and 3D reconstruction. Individualized dose optimization techniques were used for this CT. COMPARISON: None. FINDINGS: Normal bilateral petrous carotid arteries. There is calcified plaque formation of the right cavernous carotid artery, without a cross-sectional luminal stenosis. There is calcified plaque formation of the left cavernous carotid artery, without a cross-sectional luminal stenosis. Normal right A1 segments of the anterior cerebral artery. Normal left A1 segments of the anterior cerebral artery. Normal intact anterior communicating artery (ACOM). Normal bilateral A2 segments of the anterior cerebral arteries. Normal right M1 and M2 segments of the middle cerebral arteries, with a normal M1 bifurcation. Normal left M1 and M2 segments of the middle cerebral arteries, with a normal M1 bifurcation. Normal right posterior communicating artery (PCOM). There is non-visualization of the left posterior communicating artery (PCOM). There is a small atretic left vertebral artery with a dominant right vertebral artery. Normal basilar artery with a normal basilar bifurcation. The visualized bilateral superior cerebellar (SCA) arteries are normal. Normal right P1, P2 and visualized P3 segments of the posterior cerebral arteries. Left posterior cerebral arteries are small in caliber, likely relating to left AUTO BODY REPAIRER territory infarction (chronic). There is no demonstrated aneurysm of the nikolski of [place]. CT/CTA Head W/WO Contrast IMPRESSION: 1. Normal nikolski of [place] without a demonstrated aneurysm or arterial thrombus. 2. Left AUTO BODY REPAIRER territory infarction with expected changes of the left AUTO BODY REPAIRER. Electronically Signed: Jhony Lizama MD at 14:19 EST , Service support ,
--- NOTE | 2018-03-15 13:29 | CT_ITS ---
STUDY: CTA NECK WITH AND WITHOUT CONTRAST REASON FOR EXAM: Male, 72 years old. Stroke protocol RADIATION DOSAGE (If Supplied By Facility): CTDIvol = ( 27.25 ) mGy, DLP = ( 700.05 ) mGycm TECHNIQUE: CT angiography with multi-detector data acquisition was performed from the aortic arch to the skull base prior to and after intravenous administration of 100CC ml of Isovue 370 contrast. MIP images were reconstructed from the axial data set. Post-processing of the angiographic images was performed, with multiplanar reformation and 3D reconstruction. Individualized dose optimization techniques were used for this CT. COMPARISON: Head CT from earlier today. FINDINGS: AORTIC ARCH: There is atherosclerosis of the aortic arch extending into the brachiocephalic arteries, however, no hemodynamically significant stenosis. Visualized lung parenchyma is unremarkable except for mild scattered interstitial reticulation/fibrotic changes. RIGHT CAROTID ARTERIES: There is atherosclerosis of the right common carotid artery with tortuosity. A right carotid artery stent is identified which opacifies normally. No hemodynamically significant stenosis is seen. There is atherosclerotic tortuous elongation of the cervical portion of the right internal carotid artery. Normal origin of the right external carotid artery (ECA). LEFT CAROTID ARTERIES: Atherosclerosis of the left common carotid artery with tortuosity. Left carotid stent opacifies normally without evidence of thrombosis or hemodynamically significant stenosis. There is atherosclerotic tortuous elongation of the cervical portion of the left internal carotid artery. Normal origin of the left external carotid artery (ECA). VERTEBRAL ARTERIES: There is enhancement within the bilateral vertebral arteries with a small (intracranial) left vertebral artery, and a dominant right vertebral artery. Mild atherosclerosis of the bilateral vertebral arteries without demonstrated significant stenosis. There are degenerative changes of the cervical spine. No destructive bony process is seen. There is cerumen of the right external auditory canal. IMPRESSION: 1. Bilateral carotid artery stents (and atherosclerosis) without hemodynamically significant stenosis identified. 2. No arterial dissection. Electronically Signed: Jhony Lizama MD at 14:16 EST , Service support , STUDY: CTA OF THE BRAIN REASON FOR EXAM: Male, 72 years old. Stroke protocol RADIATION DOSAGE (If Supplied By Facility): CTDIvol = ( 27.25 ) mGy, DLP = ( 700.05 ) mGycm TECHNIQUE: CT angiography was performed with a multi-detector CT scanner. Data acquisition was obtained from the skull base through the vertex following intravenous administration of 100 ml of Isovue-370. MIP images were reconstructed from the axial data set. Post-processing of the angiographic images was performed, with multiplanar reformation and 3D reconstruction. Individualized dose optimization techniques were used for this CT. COMPARISON: None. FINDINGS: Normal bilateral petrous carotid arteries. There is calcified plaque formation of the right cavernous carotid artery, without a cross-sectional luminal stenosis. There is calcified plaque formation of the left cavernous carotid artery, without a cross-sectional luminal stenosis. Normal right A1 segments of the anterior cerebral artery. Normal left A1 segments of the anterior cerebral artery. Normal intact anterior communicating artery (ACOM). Normal bilateral A2 segments of the anterior cerebral arteries. Normal right M1 and M2 segments of the middle cerebral arteries, with a normal M1 bifurcation. Normal left M1 and M2 segments of the middle cerebral arteries, with a normal M1 bifurcation. Normal right posterior communicating artery (PCOM). There is non-visualization of the left posterior communicating artery (PCOM). There is a small atretic left vertebral artery with a dominant right vertebral artery. Normal basilar artery with a normal basilar bifurcation. The visualized bilateral superior cerebellar (SCA) arteries are normal. Normal right P1, P2 and visualized P3 segments of the posterior cerebral arteries. Left posterior cerebral arteries are small in caliber, likely relating to left POLYMER SCIENTIST territory infarction (chronic). There is no demonstrated aneurysm of the [place]. CT/CTA Neck W/WO Contrast IMPRESSION: 1. Normal [place] without a demonstrated aneurysm or arterial thrombus. 2. Left POLYMER SCIENTIST territory infarction with expected changes of the left POLYMER SCIENTIST. Electronically Signed: Jhony Lizama MD at 14:19 EST , Service support ,
--- NOTE | 2018-03-15 13:30 | EKG12_ITS ---
Test Reason : NEURO Blood Pressure : / mmHG Vent. Rate : 066 BPM Atrial Rate : 069 BPM P-R Int : 000 ms QRS Dur : 122 ms QT Int : 490 ms P-R-T Axes : 000 -52 021 degrees QTc Int : 513 ms Atrial fibrillation Right bundle branch block Left anterior fascicular block Bifascicular block Cannot rule out Inferior infarct , age undetermined Cannot rule out Anteroseptal infarct , age undetermined Abnormal ECG Confirmed by ALISA ELMORE, LAVERNE ([id number]), design editor MICHELE DELACRUZ ([id number]) on 03/17/2018 9:19:49 AM Referred By: Mitali Gay Confirmed By:LAVERNE CUELLAR MD
--- NOTE | 2018-03-15 13:33 | CT_ITS ---
STUDY: CT BRAIN WITHOUT CONTRAST REASON FOR EXAM: Male, 72 years old. Stroke protocol RADIATION DOSAGE (If Supplied By Facility): CTDIvol = ( 44.99 ) mGy, DLP = ( 846.73 ) mGycm TECHNIQUE: Transaxial CT imaging of the brain was performed without administration of intravenous contrast material. Individualized dose optimization techniques were used for this CT. COMPARISON: None. FINDINGS: There are multiple scalp calcifications in the prevascular. Normal calvarium. There is mild cerebral atrophy with widening of the extra-axial spaces and ventricular dilatation. There are areas of decreased attenuation within the white matter tracts of the supratentorial brain, consistent with microvascular disease changes. Sizable area of encephalomalacia and gliosis involving the temporal-occipital lobe on the left side is chronic appearing. There is atherosclerosis of the bilateral carotid siphons. Normal brainstem. Normal cerebellum. There is no intracranial hemorrhage. There are no findings of an acute ischemic infarction. Normal visualized paranasal sinuses. CT/Brain/Head without Contrast IMPRESSION: 1. No acute intracranial hemorrhage or mass effect. 2. 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 N.B. : The above information has been verbally conveyed by Jhony Lizama MD to Alex Hernandezjhonny on 03/15/2018 13:53:24 (ET). Electronically Signed: Jhony Lizama MD at 13:54 EST , Service support ,
--- NOTE | 2018-03-15 13:39 | CM.ED ---
Social Work Note Stroke alert called. Introduced self and role to pt's , Ángela. Per Ángela the pt has had a stroke in the past, about 6 years ago, where they found blockage in arteries in his neck. He did have surgery per her report. Pt lives with his , two daughters and 4 grandchildren. Ángela states that the pt is fairly independent at home, but they watch him to ensure that he does not fall. He does use a walker at his baseline and has a hospital bed at home. Pt does not have advanced directives as he refuses according to Ángela. His PCP is Dr. Marrero and he also sees Dr. Mendes at [facility]. Perferred pharmacy is [facility]. Inform Ángela that pt is being taken to CT for imaging of his head and neck and then will be returned to the room. Understanding expressed. Denies need at this time, and made aware that SW is available if needs arise. Maribell Smart, MANAGER REPORT, ALEX
--- NOTE | 2018-03-15 13:40 | RAD_ITS ---
STUDY: X-RAY CHEST REASON FOR EXAM: Male, 72 years old. Stroke TECHNIQUE: AP COMPARISON: 11/29/2017 FINDINGS: Sternal wires and mediastinal surgical clips compatible with prior CABG. EKG leads project over the chest. Granuloma left lung base is stable. Lungs are underexpanded but no airspace consolidation. There is no demonstrated pleural abnormality. There is mild cardiac enlargement. Normal mediastinum and alex. Normal visualized pulmonary arteries. There is atherosclerotic calcification of the aortic arch with tortuosity. No acute bony process. Diffuse gaseous distention of large bowel in the upper abdomen similar since prior study. RAD/Chest 1 View (Portable) IMPRESSION: 1. No airspace consolidation or pleural effusion. 2. Hypoinflation. 3. Cardiomegaly. CABG. 4. Diffuse (likely colonic) ileus with similar visualized pattern since prior study. Electronically Signed: Jhony Lizama MD at 14:00 EST , Service support ,
--- NOTE | 2018-03-15 13:40 | ED.DCSUM_ITS ---
- ER Visit Summary Date of Service: 03/15/18 Chief Complaint: [] Stroke symptoms 3 AM this morning History of Present Illness: The patient is a 72 M [] history is very sketchy as patient cannot provide full history, of prior stroke that left him with some type of speech issue, right side weakness or numbness, and right visual field issues, we understand that today at 3 AM the patient woke and complained to the that he was having trouble seeing out of his left eye, at that time he seemed to have trouble for forming his words and expressing himself, and then he complained at some point time of left upper extremity weakness History of CABG A. fib hypertension peripheral vascular disease on Coumadin Given all the above the family called the paramedics he was brought in Eyes fever cough head neck chest or abdominal pain Physical Examination: [] 120/80 General, no distress resting comfortably HEENT is generally unremarkable The neck is supple no adenopathy Cardiovascular, regular rate and rhythm Lungs, clear bilateral Abdomen, soft nontender Extremities, no clubbing cyanosis or edema Neurologic, awake alert answering questions appropriately moving all 4 extremities, his speech does have a slight slur to it, his cranial nerve exam is unremarkable, the confrontation testing and finger exposure he can see the fingers I put in front of him right eye isolation left eye isolation he gets the finger counts correct his extraocular movements are full, his airways intact, he has full range of motion of upper lower extremities, given the speech abnormality his NIH is about a 1 or 2 but again he does have a residual deficit Ready for family to arrive for full additional history given all the above he will undergo stroke alert immediate care panel, spoke with neurology they are aware of the above Test Results: [] Emergency Department Course and Treatment: [] Patient has remained stable here in the department his screening labs are generally unremarkable, his head CT, head CTA, neck CTA, chest x-ray, show nothing acute see those report does have a prior stroke in the PICA area see that report he remains neurologically and hemodynamically stable again with NIH of about 1-2 we have spoken with neurology as above at this time plan is to have hospital see him for further evaluation and admission Treatment Plan: [] Disposition: [] Admit stable Impression: [] Stroke symptoms, intermittent aphasia, left upper extremity weakness, visual changes This note was generated with [employer] software. It may contain incorrect words, spelling, and punctuation that were not noted in review of the chart prior to signing ED Disposition - Plan for ED Patient: Chief Complaint: Neuro S/Sx Referrals: Donnie Marrero DO [Primary Care Provider] -
[2018-03-15 13:51] LABS: Anion Gap 10 (5-15); BUN 25 mg/dL (7-18); BUN/Creat Ratio 17.9 RATIO (10-20); Calcium,Total 8.5 mg/dL (8.5-10.1); Chloride 98 mmol/L (98-107); EST Glomerular Filtration Rate 53 mL/min (>60); Est Glom Filt Rate - Afr Amer 64 mL/min (>60); Glucose 132 mg/dL (74-106); Potassium 3.1 mmol/L (3.5-5.1); Sodium Level 137 mmol/L (136-145)
[2018-03-15 13:52] LABS: Absolute Lymphocyte Count 1.02 X10^3/ul (0.83-4.51); Absolute Neutrophil Count 10.8 X10^3/uL (2.0-7.7); Basophil# 0.03 X10^3/uL; Basophil% 0.2 % (0-1); Eosinophil# 0.21 X10^3/uL; Eosinophils% 1.5 % (0-5); Hematocrit 38.1 % (40-54); Hemoglobin 12.3 g/dl (13.0-16.5); Lymphocyte # 1.02 X10^3/ul (4.0); Lymphocyte % 7.2 % (19-41); Mean Corp Hgb Conc 32.3 g/gl (32-36); Mean Corpuscular Volume 86.6 fL (80-94); Mean Platelet Vol. 8.6 fl (6.2-12.0); Monocyte# 2.07 X10^3/uL; Monocyte% 14.6 % (0-10); Neutrophil # 10.76 X10^3/uL (2.7-7.7); Neutrophil % 76.2 % (47-70); Platelet Count 226 K/mm3 (150-450); RBC Distribution Width CV 15.2 % (11.6-14.6); RBC Distribution Width SD 48.7 fl (35.1-43.9); White Blood Count 14.1 K/mm3 (4.4-11.0)
[2018-03-15 13:54] LABS: Differential Indicated SCAN CRITERIA MET; POSITIVE COUNT NO; POSITIVE DIFFERENTIAL YES; POSITIVE MORPHOLOGY NO
[2018-03-15 13:57] LABS: International Normalized Ratio 2.4; Prothrombin Time (Protime)PT. 26.1 SECONDS (11.7-14.9)
--- NOTE | 2018-03-15 14:13 | ED.RN ---
saline up. unable to scan or adjust as computer states another user in chart
[2018-03-15 14:21] LABS: Bedside Glucose 105 mg/dL (70-110)
--- NOTE | 2018-03-15 15:41 | HP.PCM_ITS ---
Problem List (1) Bilateral leg ulcer Status: Resolved (2) GI bleeding Status: Resolved (3) Hearing deficit Status: Chronic (4) Hypertension Status: Chronic (5) Systolic congestive heart failure Status: Chronic (6) Aortic stenosis Status: Chronic (7) Pulmonary hypertension Status: Chronic (8) Ischemic cardiomyopathy Status: Chronic (9) Iron deficiency anemia Status: Chronic (10) BPH (benign prostatic hyperplasia) Status: Chronic (11) Splenomegaly Status: Chronic (12) Gallbladder sludge Status: Chronic (13) Fatty infiltration of liver Status: Chronic (14) Venous stasis ulcers of both lower extremities Status: Chronic (15) PAD (peripheral artery disease) Status: Chronic (16) Stage III chronic kidney disease Status: Chronic (17) Chronic atrial fibrillation Status: Chronic (18) Status post coronary artery bypass graft Status: Chronic (19) Decubitus ulcer of sacral area Status: Chronic (20) Hypothyroidism Status: Chronic (21) CVA (cerebral vascular accident) Status: Chronic (22) CAD (coronary artery disease) Status: Chronic History of Present Illness Date of Admission: 03/15/18 Chief Complaint: Aphasia, right sided weakness, left eye vision changes. The patient is a 72 year old M who presents to the emergency room due to stroke- like symptoms which began early this morning, approximately 3 AM. Patient noted to have slurred speech, right arm weakness, and left eye vision changes. reports patient yelled out this morning with various complaints which she hoped would go away. Patient continued to complain of previously noted symptoms and then called EMS. reports patient was unable to sit up in bed. She notes slurred speech and that patient's speech did not make sense. Patient has a past medical history of CVA, peripheral arterial disease status post lower extremity stents, CAD status post CABG, hypertension, chronic atrial fibrillation on anticoagulation with Coumadin, hyperlipidemia, hypothyroidism, depression, debility, BPH, chronic systolic CHF/ischemic cardiomyopathy, chronic gluteal decubitus ulcer which is present on admission, iron deficiency anemia, chronic kidney disease stage III. Past Medical History Past Medical History (Chronic Problems): Chronic Problems Hearing deficit (Chronic) Hypertension (Chronic) Systolic congestive heart failure (Chronic) Aortic stenosis (Chronic) Pulmonary hypertension (Chronic) Ischemic cardiomyopathy (Chronic) Iron deficiency anemia (Chronic) BPH (benign prostatic hyperplasia) (Chronic) Splenomegaly (Chronic) Gallbladder sludge (Chronic) Fatty infiltration of liver (Chronic) Venous stasis ulcers of both lower extremities (Chronic) PAD (peripheral artery disease) (Chronic) Stage III chronic kidney disease (Chronic) Chronic atrial fibrillation (Chronic) Status post coronary artery bypass graft (Chronic) Decubitus ulcer of sacral area (Chronic) Hypothyroidism (Chronic) CVA (cerebral vascular accident) (Chronic) CAD (coronary artery disease) (Chronic) Allergies latex Allergy (Verified 08/19/17 08:39) Rash LEEANN Inhibitors Adverse Reaction (Verified 08/19/17 08:39) Other Home Medications: Ambulatory Orders Medication Instructions Recorded Amiodarone HCl 200 mg PO DAILY 10/28/16 Atorvastatin Calcium [Lipitor] 20 mg PO QHS 10/28/16 Carvedilol [Coreg (Beta Kaycee)] 12.5 mg PO BID 10/28/16 Levothyroxine [Synthroid] 88 mcg PO DAILY 10/28/16 Losartan Potassium 25 mg PO DAILY 10/28/16 Tamsulosin HCl [Flomax] 0.4 mg PO QHS 10/28/16 Sertraline HCl [Zoloft] 50 mg PO DAILY 07/21/17 Furosemide [Lasix] 20 mg PO DAILY #30 tab 12/04/17 Potassium Chloride [K-Dur] 20 meq PO BIDCM #60 tab 12/04/17 Warfarin [Coumadin] 3 mg PO DAILY #30 tab 12/04/17 Surgical History: coronary bypass surgery, total hip arthroplasty - Left; bilateral carotid endarterectomy, - - Bilateral carotid endarterectomy, bilateral lower extremity stents secondary to peripheral arterial disease Psychiatric History: Depression Lives: With Family - and daughters. Smoking Status: Former smoker Alcohol: None Drugs: None - *Family History Maternal History Items: - - Patient's mother at age of 75 with a history of cerebrovascular accident. Paternal History Items: - - Patient's father at the age of 70 from a myocardial infarction. Review of Systems Constitutional: Denies: Chills, Fever, Weight Change Eyes: Reports: Vision Change - Left eye HEENT: Denies: Head Aches, Sinus Congestion, Sinus Drainage Cardiovascular: Denies: Chest Pain, Edema, Light Headedness, Palpitations, Syncope Respiratory: Denies: Cough, Shortness of breath at rest, Sputum production Gastrointestinal: Denies: Abdominal Pain, Nausea, Vomiting Genitourinary: Denies: Dysuria Musculoskeletal: Denies: Joint Pain, Joint Tenderness Skin: Reports: Dryness, Wounds - Chronic gluteal decubitus ulcer Neurological: Reports: Change in Speech, Slurred speech, - - Right arm weakness, drift to left side. Left eye vision change.. Denies: Numbness, Tingling Psychiatric: Reports: Depression Hematologic/ Lymphatic: Denies: Easy Bruising, Easy Bleeding VTE Information - Inpt Only VTE Present on Admission: No VTE Mechan Device Prophylaxis: None VTE Pharm Prophylaxis ordered?: Yes - Physical Exam General: Alert, Cooperative, No apparent distress HEENT: Atraumatic, - - Right eye fixated. Left eye nystagmus. Oral: Dry Mucosa Neck: Supple, No JVD, Negative Carotid Bruits Lungs: Clear to auscultation, Diminished Cardiovascular: - - Atrial fibrillation, rate controlled. Abdomen: Bowel Sounds Present, Soft, Non Tender, Non-Distended Extremities: No clubbing, No cyanosis, No edema, Capillary Refill Less than 3 Seconds Skin: - - Generalized extensive skin dryness with flaking. Right great toe healing ulceration. Chronic gluteal decubitus ulcer x3. Musculoskeletal: No Tenderness to Palpation of Joints or Extremities Neurological: Slurred Speech, - - Right side weakness, drift to left side. Right eye fixated. Left eye nystagmus. Psych/Mental Status: Normal Affect, Appropriate Vital Signs Temp Pulse Resp BP Pulse Ox 98 F 68 18 101/54 L 97 03/15/18 15:28 03/15/18 15:28 03/15/18 15:28 03/15/18 15:28 03/15/18 15:28 Oxygen Flow Rate (L/min) 3 Oxygen Delivery Method Nasal Cannula Weight: 182 lb 5.156 oz Body Mass Index (BMI) 24.0 Finger Stick Blood Glucose 105 Laboratory Tests Past 24 Hrs 03/15/18 03/15/18 03/15/18 13:25 13:25 13:25 WBC 14.1 H RBC 4.40 L Hgb 12.3 L Hct 38.1 L MCV 86.6 MCH 28.0 MCHC 32.3 RDW 15.2 H RDW Differential 48.7 H Plt Count 226 MPV 8.6 Immature Gran % (Auto) 0.300 Neut % (Auto) 76.2 H Lymph % (Auto) 7.2 L [place] % (Auto) 14.6 H Eos % (Auto) 1.5 Baso % (Auto) 0.2 Absolute Neuts (auto) 10.8 H Absolute Lymphs (auto) 1.02 Total Counted Not Reportable Diff Path Review Pending PT 26.1 H INR 2.4 Sodium 137 Potassium 3.1 L Chloride 98 Carbon Dioxide 29.0 Anion Gap 10 BUN 25 H Creatinine 1.40 H Estim Creat Clear Calc 53.90 Est GFR (MDRD) Af Amer 64 Est GFR (MDRD) Non-Af 53 L BUN/Creatinine Ratio 17.9 Glucose 132 H Calcium 8.5 Troponin I 0.035 POC Glucose 03/15/18 13:23 POC Glucose 105 Assessment/Plan All Active Problems Bilateral leg ulcer (Resolved) GI bleeding (Resolved) 1. R/O Acute CVA vs Nerve palsy, hx of prior CVA-brain CT showed no acute intracranial hemorrhage or mass effect. 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 Neck CTA with bilateral carotid artery stents without hemodynamically significant stenosis. Head CTA with left PROJECT MANAGER INTERIOR DESIGN territory infarct. MRI brain. Obtain echo. PT/OT/ST. NPO pending ST consult. Coumadin, statin. [facility] Q4. 2. KEAGAN on chronic kidney disease stage III-secondary to poor oral intake. Gentle IV fluids. Hold Lasix, losartan. 3. Acute on chronic hypokalemia-replace per protocol. Check BMP. History of recurrent hypokalemia. 4. Chronic gluteal decubitus ulcers, present on admission-every 2 hours position changes. Wound RN consult. 5. Chronic atrial fibrillation on anticoagulation with Coumadin- Rate controlled. 6. CAD status post CABG-continue Coumadin, statin, beta-kaycee. 7. Chronic systolic CHF/ischemic cardiomyopathy-lasix on hold. 8. Peripheral arterial disease status post lower extremity stents-continue Coumadin, statin. 9. Hypertension-permissive given suspected acute CVA. Patient on amiodarone, carvedilol, Lasix and losartan. 10. Hyperlipidemia-continue statin. 11. Hypothyroidism-continue Synthroid regimen. 12. Iron deficiency anemia-stable. 13. BPH-continue Flomax regimen. 14. Depression-continue sertraline regimen. 15. Debility- reports patient requiring significant care at home. PT/OT. 16. Moderate to severe protein calorie malnutrition- Nutrition consult. DVT prophylaxis-coumadin This patient was seen by Maribell Evans NP-C under the supervision of Dr. Gay.
--- NOTE | 2018-03-15 15:46 | NURSING ---
WHITE OBS STROKE SYMPTOMS, APHASIA, LEFT UPPER EXTREMITY WEAKNESS PCU
--- NOTE | 2018-03-15 16:14 | CM.ED ---
Social Work Note RN, Ly Sin, expressed concern with hygiene neglect due to appearance of pt's feet on presentation to the hospital. This automobile and property underwriter also noticed that pt also seems quick to anger with pt while in room with him. Left vm for Lamar Porter, Director of APS, and will pass along concerns to SW on assigned unit. Maribell Smart, RESEARCH HYDROLOGIST, PRESIDENTIAL SUPPORT SPECIALIST
--- NOTE | 2018-03-15 17:07 | ECHOD_ITS ---
Reason For Study: TIA/STROKE Procedure This was a 2D Doppler, Color Flow transthoracic echocardiogram. Exam performed portable in patient room. Left Ventricle Normal LV size. Mild concentric left ventricular hypertrophy. The estimated ejection fraction is 40 %. Mild to moderate segmental systolic dysfunction (see wall motion). Stage 3 diastolic dysfunction. No regional wall motion abnormalities noted. Right Ventricle Normal RV size. Normal systolic function. Atria The left atrium is moderately enlarged. Normal right atrium. Mitral Valve Mild focal mitral valve calcification. Mild (1+) eccentric mitral valve insufficiency. Tricuspid Valve Normal tricuspid valve. Moderate (2+) tricuspid valve insufficiency. Pulmonary artery systolic pressure is 52 mmHg. Moderate pulmonary hypertension. Aortic Valve Trisinus/trileaflet aortic valve. Moderate focal aortic valve calcification. Peak aortic valve gradient 22 mmHg. Mean aortic valve gradient 12 mmHg. Calculated aortic valve area (continuity equation) is 1.5 cm2. Mild (1+) eccentric aortic valve insufficiency. Pulmonic Valve Normal pulmonic valve. Great Vessels Normal aortic root. The pulmonary artery is normal size. Normal inferior vena cava. Pericardium/Pleural No pericardial effusion. MMode/2D Measurements & Calculations LVIDd: 5.4 cm IVSd: 1.3 cm LVOT diam: 2.3 cm LVIDs: 3.7 cm LVPWd: 1.4 cm LVOT area: 4.1 cm2 RVDd: 4.3 cm FS: 30.2 % Ao root diam: 3.6 cm LAV(MOD-bp): 92.1 ml Aortic Valve Planimetry: 1.4 cm2 LAV(MOD-bp) Indexed: 44.3 ml/m2 LAV(MOD-sp2): 77.0 ml LAV(MOD-sp4): 99.4 ml LA dimension(2D): 6.4 cm LA A4 area: 28.9 cm2 RA A4 area: 16.6 cm2 Time Measurements MV dec time: 0.10 sec Doppler Measurements & Calculations MV E max elia: 107.6 cm/sec Lat Peak E' Elia: 9.5 cm/sec Med Peak E' Elia: 4.8 cm/sec MV A max elia: 37.1 cm/sec E/E' lat: 11.3 E/E' med: 22.5 MV E/A: 2.9 MV V2 max: 108.5 cm/sec Ao V2 max: 235.8 cm/sec AI max elia: 372.4 cm/sec MV max P.7 mmHg Ao max P.3 mmHg AI max P.5 mmHg MV V2 mean: 62.1 cm/sec Ao V2 mean: 167.0 cm/sec AI dec slope: 233.8 cm/sec2 MV mean P.8 mmHg Ao mean P.5 mmHg AI P1/2t: 466.6 msec MV V2 VTI: 18.8 cm Ao V2 VTI: 46.9 cm MVA(VTI): 2.5 cm2 LINDEN(I,D): 0.99 cm2 LINDEN(V,D): 1.5 cm2 LV V1 max: 87.5 cm/sec SV(LVOT): 46.5 ml TR max elia: 343.2 cm/sec LV V1 max P.6 mmHg TR max P.2 mmHg LV V1 mean P.82 mmHg LV V1 mean: 42.4 cm/sec LV V1 VTI: 11.2 cm MV P1/2t-pr_phl: 50.3 msec Interpretation Summary Normal LV size. Mild concentric left ventricular hypertrophy. The estimated ejection fraction is 40 %. Mild to moderate segmental systolic dysfunction (see wall motion). Stage 3 diastolic dysfunction. Pulmonary artery systolic pressure is 52 mmHg. Moderate pulmonary hypertension. Moderate focal aortic valve calcification. Calculated aortic valve area (continuity equation) is 1.5 cm2. Ordering Physician: Mitali Gay Referring Physician: TAMMIE YOUNGBLOOD Performed By: Kasey Burch, ANANYA, RVT
[2018-03-15 17:46] LABS: Magnesium 1.5 mg/dL (1.6-2.6); T4 Free Direct 1.57 ng/dL (0.76-1.46)
[2018-03-15 17:52] LABS: Hemoglobin A1c 7.6 % (4.2-6.3)
[2018-03-15] MEDS: 0.9% Normal Saline 1,000 ML 100 ML IV (18:23)
[2018-03-15] MEDS: Potassium Chloride 10mEq/100mL 10 MEQ/100 ML IV.SOLN. 100 MEQ IV BOLUS ×4 (18:59→22:12)
[2018-03-15] MEDS: 0.9% NaCl Peripheral Flush Adult/Peds IV ×3 (20:05→23:29)
[2018-03-15] MEDS: Menthol/Lanolin/Calamine/Znox 113 GM Tube 1 APPLIC TOPICAL (23:15)
[2018-03-15] MEDS: Famotidine 20mg IV Push Syringe Q12 300 MG IV (23:22)
[2018-03-15] MEDS: Atorvastatin Calcium 20 MG Tablet PO (23:22)
[2018-03-16] VITALS (13 sets, daily range): BP systolic 111–139; BP diastolic 61–84; PULSE 64–121; RESP 14–20; TEMP 36.5–37.1; O2SAT 94–97; BMI 22.0
[2018-03-16] MEDS: Tamsulosin HCl 0.4 MG Capsule PO (00:08)
[2018-03-16] MEDS: 0.9% Normal Saline 1,000 ML 100 ML IV ×2 (04:03→15:10)
[2018-03-16 06:14] LABS: ALB/GLOB Ratio 0.6 RATIO (0.9-2.4); AST(SGOT) 10 U/L (15-37); Alanine Aminotransfer ALT/SGPT 12 U/L (16-61); Albumin, Serum 2.5 g/dL (3.2-5.0); Alkaline Phosphatase 98 U/L (45-117); Anion Gap 11 (5-15); BUN 20 mg/dL (7-18); BUN/Creat Ratio 18.9 RATIO (10-20); Calcium,Total 8.1 mg/dL (8.5-10.1); Chloride 103 mmol/L (98-107); Cholesterol 100 mg/dL (200); Creatinine, Serum 1.06 mg/dL (0.70-1.30); EST Glomerular Filtration Rate 73 mL/min (>60); Est Glom Filt Rate - Afr Amer 88 mL/min (>60); Estimated Creatinine Clearance 71.28 ml/min; Globulin 4.5 g/dL (2.2-4.2); Glucose 117 mg/dL (74-106); High Density Lipoprotein 32 mg/dL; Potassium 2.6 mmol/L (3.5-5.1); Sodium Level 139 mmol/L (136-145); Triglycerides 79 mg/dL; Very Low Density Lipoprotein 16 mg/dL (5-40)
[2018-03-16 06:15] LABS: International Normalized Ratio 2.9; Prothrombin Time (Protime)PT. 30.2 SECONDS (11.7-14.9)
[2018-03-16 06:33] LABS: Absolute Lymphocyte Count 1.02 X10^3/ul (0.83-4.51); Absolute Neutrophil Count 7.4 X10^3/uL (2.0-7.7); Basophil# 0.03 X10^3/uL; Basophil% 0.3 % (0-1); Eosinophil# 0.24 X10^3/uL; Eosinophils% 2.3 % (0-5); Hematocrit 34.4 % (40-54); Hemoglobin 11.2 g/dl (13.0-16.5); Lymphocyte # 1.02 X10^3/ul (4.0); Lymphocyte % 9.9 % (19-41); Mean Corp Hgb Conc 32.6 g/gl (32-36); Mean Platelet Vol. 8.6 fl (6.2-12.0); Monocyte# 1.61 X10^3/uL; Monocyte% 15.7 % (0-10); Neutrophil # 7.35 X10^3/uL (2.7-7.7); Neutrophil % 71.6 % (47-70); Platelet Count 220 K/mm3 (150-450); RBC Distribution Width CV 15.2 % (11.6-14.6); RBC Distribution Width SD 48.5 fl (35.1-43.9); White Blood Count 10.3 K/mm3 (4.4-11.0)
--- NOTE | 2018-03-16 06:43 | NURSING ---
Patient was uncooperative with NIH assessment. Patient stated he did not want to do the questions and just wanted to sleep. This nurse explained that the NIH was important to make sure he was still doing ok. Patient refused to answer and stated he did not want to. Patient remain confused. It took patient a while to answer questions and he did not want to perform task. On coming nurse present for NIH assessment.
[2018-03-16 06:44] LABS: Differential Indicated SCAN CRITERIA MET; POSITIVE COUNT NO; POSITIVE DIFFERENTIAL YES; POSITIVE MORPHOLOGY NO
[2018-03-16] MEDS: Levothyroxine 88 MCG Tablet PO (06:58)
--- NOTE | 2018-03-16 06:58 | MRI_ITS ---
STUDY: MRI BRAIN WITHOUT CONTRAST REASON FOR EXAM: Male, 72 years old. cva, speech changes, increased confusion, rt sided weakness, hx prior cva lt temporal occipital; hx prior carotid endarterectomy. TECHNIQUE: Standardized multiplanar fat and water weighted pulse sequences were obtained. COMPARISON: 03/15/2018 CT of the head FINDINGS: There is mild cerebral atrophy with widening of the extra-axial spaces and ventricular dilatation. There are multiple white matter hyperintensities, distributed throughout the deep white matter tracts of the cerebral hemispheres, consistent with moderate chronic white matter ischemic changes. There is left temporal occipital encephalomalacia and gliosis, consistent with prior insult. Normal bilateral basal ganglia. Normal thalami. There is no extra-axial fluid accumulation. Normal flow voids within the major intracranial circulation suggesting patency by spin echo criteria. Normal sella turcica, pituitary gland, infundibular stalk, optic chiasm and hypothalamus. Normal tectal plate and pineal gland. Normal midbrain, francheska and medulla. There is a right cerebellar chronic lacunar infarct. Normal basal cisterns. MRI/Brain without Contrast IMPRESSION: No acute intracranial abnormality. 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 Electronically Signed: Jennie Sales MD at 10:06 EST Tel , Service support ,
[2018-03-16] MEDS: Potassium Chloride 10mEq/100mL 10 MEQ/100 ML IV.SOLN. 100 MEQ IV BOLUS ×4 (09:55→16:35)
[2018-03-16] MEDS: Menthol/Lanolin/Calamine/Znox 113 GM Tube 1 APPLIC TOPICAL ×2 (10:00→21:03)
--- NOTE | 2018-03-16 11:20 | CASEMGMT ---
This RN CM to room to complete CM assessment and there is no family at bedside at this time and pt is currently getting an ECHO. Will attempt again later. SStchantel GOLDSTEIN CM
[2018-03-16 11:24] LABS: Pathologist Review Reviewed
[2018-03-16 11:52] LABS: Pathologist Review Reviewed
--- NOTE | 2018-03-16 11:58 | PCM.CONS.GEN ---
Reason for Consult Date of Consultation: 03/16/18 Reason for Consultation: cva History of Present Illness: The patient is a 72 year old M who was his normal baseline friday night, awoke sun morning (yesterday) with slurred speech and leaning to the left. normally walks with a walker, has clear speech and cognition normally per who is at bedside. previous cva caused problems with right vision and short term memory. he is on coumadin, inr therapeutic on admission. reports bp normally low at home. no tob, no history of dm. history of perioperative cva several years ago at [facility] with subsequent bilateral carotid stents. history afib. per admit note:The patient is a 72 y/o M w/ PMHx: Systolic CHF/Ischemic Cardiomyopathy, HTN, HLD, Moderate to severe protein-calorie nutrition, Coccyx/Ischial/Gluteal decubitus ulcer Decubitous, PAD s/p BL LE stents, CAD s/p CABG, Chronic Atrial Fibrillation on coumadin, Hypothyroidism, History of prior CVA L temporal-occipital infarction with prior deficits R eye peripheral vision deficits and unclear further deficits who presents to the [facility] ED on 03/15/18 w/ history of onset at approximately 3 AM changes to his speech, increased confusion, right-sided weakness with right upper extremity greater than right lower extremity, leaning towards the left, complaints of left eye vision changes, abrupt outbursts and shouting about the symptoms ongoing with eventual EMS call per as patient was unable to sit up in bed and had these ongoing symptoms. 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 The ED patient administered normal saline. Past Medical History Past Medical History (Chronic Problems): Chronic Problems Hearing deficit (Chronic) Hypertension (Chronic) Systolic congestive heart failure (Chronic) Aortic stenosis (Chronic) Pulmonary hypertension (Chronic) Ischemic cardiomyopathy (Chronic) Iron deficiency anemia (Chronic) BPH (benign prostatic hyperplasia) (Chronic) Splenomegaly (Chronic) Gallbladder sludge (Chronic) Fatty infiltration of liver (Chronic) Venous stasis ulcers of both lower extremities (Chronic) PAD (peripheral artery disease) (Chronic) Stage III chronic kidney disease (Chronic) Chronic atrial fibrillation (Chronic) Status post coronary artery bypass graft (Chronic) Decubitus ulcer of sacral area (Chronic) Hypothyroidism (Chronic) CVA (cerebral vascular accident) (Chronic) CAD (coronary artery disease) (Chronic) Allergies latex Allergy (Verified 08/19/17 08:39) Rash LEEANN Inhibitors Adverse Reaction (Verified 08/19/17 08:39) Other Home Medications: Ambulatory Orders Medication Instructions Recorded Amiodarone HCl 200 mg PO DAILY 10/28/16 Atorvastatin Calcium [Lipitor] 20 mg PO QHS 10/28/16 Carvedilol [Coreg (Beta Kaycee)] 12.5 mg PO BID 10/28/16 Levothyroxine [Synthroid] 88 mcg PO DAILY 10/28/16 Losartan Potassium 25 mg PO DAILY 10/28/16 Tamsulosin HCl [Flomax] 0.4 mg PO QHS 10/28/16 Sertraline HCl [Zoloft] 50 mg PO DAILY 07/21/17 Furosemide [Lasix] 20 mg PO DAILY #30 tab 12/04/17 Potassium Chloride [K-Dur] 20 meq PO BIDCM #60 tab 12/04/17 Warfarin [Coumadin] 3 mg PO DAILY #30 tab 12/04/17 Surgical History: coronary bypass surgery, total hip arthroplasty - Left; bilateral carotid endarterectomy, - - Bilateral carotid endarterectomy, bilateral lower extremity stents secondary to peripheral arterial disease Psychiatric History: Depression Lives: With Family - and daughters. Smoking Status: Former smoker Tobacco Use: Non-smoker Alcohol: None Drugs: None - *Family History Maternal History Items: - - Patient's mother at age of 75 with a history of cerebrovascular accident. Paternal History Items: - - Patient's father at the age of 70 from a myocardial infarction. Review of Systems Constitutional: Reports: Anorexia - per , occurs intermmittently. Denies: Chills, Fever, Weight Change HEENT: Denies: Head Aches, Sinus Congestion, Sinus Drainage Cardiovascular: Denies: Chest Pain, Palpitations Respiratory: Denies: Cough, Shortness of breath at rest, Sputum production Gastrointestinal: Denies: Abdominal Pain, Nausea, Vomiting Genitourinary: Denies: Dysuria Musculoskeletal: Denies: Joint Pain, Joint Tenderness Skin: Denies: Rash, Wounds Neurological: Denies: Numbness, Tingling, Focal weakness Psychiatric: Denies: Anxiety, Depression, Homicidal Ideations, Suicidal Ideations Hematologic/ Lymphatic: Denies: Easy Bruising, Easy Bleeding Objective: eyes closed with eyes open with assistance right eye is fixed, left eye demonstrates nystagmus to left gaze right field cut, presumably old dysarthria, severe left arm flaccid sensation ? intact left leg also flaccid, uptoe on left [id number] - Physical Exam Vital Signs Temp Pulse Resp BP Pulse Ox 36.8 C 65 20 H 111/61 94 03/16/18 10:00 03/16/18 10:00 03/16/18 10:00 03/16/18 10:00 03/16/18 10:00 Oxygen Flow Rate (L/min) 3 Oxygen Delivery Method Room Air Weight: 80 kg Body Mass Index (BMI) 22.0 Finger Stick Blood Glucose 105 Intake and Output for Last 24 Hours 03/14/18 03/15/18 03/16/18 23:59 23:59 23:59 Intake Total 480 / 480 1852 / 1852 Output Total 150 / 150 300 / 300 Balance 330 / 330 1552 / 1552 Laboratory Tests Past 24 Hrs 03/15/18 03/15/18 03/15/18 13:25 13:25 13:25 WBC 14.1 H RBC 4.40 L Hgb 12.3 L Hct 38.1 L MCV 86.6 MCH 28.0 MCHC 32.3 RDW 15.2 H RDW Differential 48.7 H Plt Count 226 MPV 8.6 Immature Gran % (Auto) 0.300 Neut % (Auto) 76.2 H Lymph % (Auto) 7.2 L Benton % (Auto) 14.6 H Eos % (Auto) 1.5 Baso % (Auto) 0.2 Absolute Neuts (auto) 10.8 H Absolute Lymphs (auto) 1.02 Total Counted Not Reportable Differential Comment Diff Path Review Reviewed PT 26.1 H INR 2.4 Sodium 137 Potassium 3.1 L Chloride 98 Carbon Dioxide 29.0 Anion Gap 10 BUN 25 H Creatinine 1.40 H Estim Creat Clear Calc 53.90 Est GFR (MDRD) Af Amer 64 Est GFR (MDRD) Non-Af 53 L BUN/Creatinine Ratio 17.9 Glucose 132 H Hemoglobin A1c Calcium 8.5 Magnesium Total Bilirubin AST ALT Alkaline Phosphatase Troponin I 0.035 Total Protein Albumin Globulin Albumin/Globulin Ratio Triglycerides Cholesterol LDL Cholesterol VLDL Cholesterol HDL Cholesterol TSH Free T4 03/15/18 03/15/18 03/16/18 13:25 13:25 05:30 WBC 10.3 RBC 4.00 L Hgb 11.2 L Hct 34.4 L MCV 86.0 MCH 28.0 MCHC 32.6 RDW 15.2 H RDW Differential 48.5 H Plt Count 220 MPV 8.6 Immature Gran % (Auto) 0.200 Neut % (Auto) 71.6 H Lymph % (Auto) 9.9 L Benton % (Auto) 15.7 H Eos % (Auto) 2.3 Baso % (Auto) 0.3 Absolute Neuts (auto) 7.4 Absolute Lymphs (auto) 1.02 Total Counted Not Reportable Differential Comment Diff Path Review Reviewed PT INR Sodium Potassium Chloride Carbon Dioxide Anion Gap BUN Creatinine Estim Creat Clear Calc Est GFR (MDRD) Af Amer Est GFR (MDRD) Non-Af BUN/Creatinine Ratio Glucose Hemoglobin A1c 7.6 H Calcium Magnesium 1.5 L Total Bilirubin AST ALT Alkaline Phosphatase Troponin I Total Protein Albumin Globulin Albumin/Globulin Ratio Triglycerides Cholesterol LDL Cholesterol VLDL Cholesterol HDL Cholesterol TSH 13.40 H Free T4 1.57 H 03/16/18 03/16/18 05:30 05:30 WBC RBC Hgb Hct MCV MCH MCHC RDW RDW Differential Plt Count MPV Immature Gran % (Auto) Neut % (Auto) Lymph % (Auto) Benton % (Auto) Eos % (Auto) Baso % (Auto) Absolute Neuts (auto) Absolute Lymphs (auto) Total Counted Differential Comment Diff Path Review PT 30.2 H INR 2.9 Sodium 139 Potassium 2.6 L* Chloride 103 Carbon Dioxide 25.0 Anion Gap 11 BUN 20 H Creatinine 1.06 Estim Creat Clear Calc 71.28 Est GFR (MDRD) Af Amer 88 Est GFR (MDRD) Non-Af 73 BUN/Creatinine Ratio 18.9 Glucose 117 H Hemoglobin A1c Calcium 8.1 L Magnesium Total Bilirubin 0.50 AST 10 L ALT 12 L Alkaline Phosphatase 98 Troponin I Total Protein 7.0 Albumin 2.5 L Globulin 4.5 H Albumin/Globulin Ratio 0.6 L Triglycerides 79 Cholesterol 100 LDL Cholesterol 52 VLDL Cholesterol 16 HDL Cholesterol 32 L TSH Free T4 POC Glucose 03/15/18 13:23 POC Glucose 105 Current Home Med List Medication Instructions Recorded Confirmed Type Amiodarone HCl 200 mg PO DAILY 10/28/16 03/15/18 History Atorvastatin Calcium [Lipitor] 20 mg PO QHS 10/28/16 03/15/18 History Carvedilol [Coreg (Beta Kaycee)] 12.5 mg PO BID 10/28/16 03/15/18 History Levothyroxine [Synthroid] 88 mcg PO DAILY 10/28/16 03/15/18 History Losartan Potassium 25 mg PO DAILY 10/28/16 03/15/18 History Tamsulosin HCl [Flomax] 0.4 mg PO QHS 10/28/16 03/15/18 History Sertraline HCl [Zoloft] 50 mg PO DAILY 07/21/17 03/15/18 History Furosemide [Lasix] 20 mg PO DAILY #30 tab 12/04/17 03/15/18 Rx Potassium Chloride [K-Dur] 20 meq PO BIDCM #60 tab 12/04/17 03/15/18 Rx Warfarin [Coumadin] 3 mg PO DAILY #30 tab 12/04/17 03/15/18 Rx Current Medications Generic Name Dose Route Start Last Admin Trade Name Freq PRN Reason Stop Dose Admin Acetaminophen 650 mg 03/15/18 17:07 Tylenol RECTAL Q4H PRN PRN fever, pain Amiodarone HCl 200 mg 03/16/18 10:00 Cordarone PO DAILY [facility] Aspirin 81 mg 03/17/18 08:00 Ecotrin PO DAILY@0800 [facility] Atorvastatin Calcium 20 mg 03/15/18 22:00 03/15/18 23:22 Lipitor PO 20 mg QHS [facility] Administration Calamine/Phenol 1 applic 03/15/18 22:00 03/15/18 23:15 Calmoseptine Ointment TOPICAL 1 applicatio BID [facility] Administration Protocol Sodium Chloride 1,000 mls @ 100 mls/hr 03/15/18 17:07 03/16/18 04:03 IV 100 mls/hr .Q10H ARIADNA Administration Famotidine 20 mg/ Sodium 10 mls @ 300 mls/hr 03/15/18 22:00 03/15/18 23:22 Chloride IV 300 mls/hr Q12 [facility] Administration Labetalol HCl 10 mg 03/15/18 17:07 Trandate IV 03/16/18 17:08 Q10M PRN MAINTAIN BP < 220/120 Levothyroxine Sodium 88 mcg 03/16/18 06:00 03/16/18 06:58 Synthroid PO 88 mcg DAILY@0600 [facility] Administration Magnesium Hydroxide 30 ml 03/15/18 17:07 Milk Of Magnesia PO DAILY PRN Constipation Nutritional Formula (Lactose Free) 120 ml 03/15/18 18:00 03/16/18 10:45 Ensure Enlive PO Not Given 4X/DAY [facility] Ondansetron HCl 4 mg 03/15/18 17:07 Zofran IV Q8H PRN PRN NAUSEA Potassium Chloride 40 meq 03/16/18 07:30 03/16/18 09:56 [facility] Promethazine HCl 12.5 mg 03/15/18 17:07 Phenergan IV Q6H PRN PRN NAUSEA/VOMITING Sertraline HCl 50 mg 03/16/18 10:00 03/16/18 10:45 Zoloft PO Not Given DAILY [facility] Sodium Chloride 5 - 15 ml 03/15/18 18:00 03/15/18 23:29 IV 10 ml UD PRN Administration SALINE FLUSH Tamsulosin HCl 0.4 mg 03/15/18 22:00 03/16/18 00:08 Flomax PO 0.4 mg QHS [facility] Administration Warfarin Sodium 3 mg 03/16/18 17:00 Coumadin (Pbkc) PO DAILY@1700 [facility] mri shows infarct in right midbrain, acute, and old left occipital infarct cta reviewed, bilateral carotid stents, vessels appear without significant stenosis. right dominant vert, vessels open. Assessment/Plan All Active Problems Bilateral leg ulcer (Resolved) GI bleeding (Resolved) right midbrain infarct, acute, afib, therapeutic inr continue coumadin pt/ot/sp consider rehab failed swallow, may need peg rec antiglycemic agent
--- NOTE | 2018-03-16 12:00 | CASEMGMT ---
RN MANDY assessment: Face to Face with patient for initial transition planning/care coordination assessment. RN CM introduced self and role at [facility], daughter, Saloni, voices understanding and consents to assessment at this time. Pt is lying in bed in no distress at this time. Dr. Sood is at bedside with pt/. This RN CM spoke with daughter and she answered all questions for pt at this time. This RN CM had spoken with same daughter via phone the last time. Care providers, pharmacy, and demographics verified at this time. PCP: [facility] Specialists: Daughter states currently no specialists. [facility]erred [facility] Insurance: [employer] Prescription Benefit: [employer] Living Will/HPOA: Pt does not have LW/HPOA on file at [facility] at this time. LNOK: Ángela Rzaa, ; Saloni Garcia, daughter Living Arrangements: Pt currently lives with , two daughters, and family on the main level of a 2 story home and states increasing needs for pt recently. Per daughter, pt is not independent with ADL's. Pt gets assistance from and family. Transportation: Family drives and states no transportation concerns at this time. DME/HHC: Pt has the following DME: walker, hospital bed and shower chair. Per daughter, pt has had [facility]HC in the past. Daughter states concern with pt going home at time of discharge. Pt is retired. Pt does not smoke or drink ETOH. Daughter states that pt's will be the final decision maker for pt at discharge. CM to follow for discharge planning/needs. Ford STERN aware of daughter's concerns, voices understanding. Advised daughter to ask for CM if any further questions/concerns/needs arise, voices understanding. Plan: TBD [place]GELITA G[facility]AN
--- NOTE | 2018-03-16 12:05 | CON.PCM_ITS ---
Reason for Consult Date of Consultation: 03/16/18 Reason for Consultation: cva History of Present Illness: The patient is a 72 year old M who was his normal baseline friday night, awoke sun morning (yesterday) with slurred speech and leaning to the left. normally walks with a walker, has clear speech and cognition normally per who is at bedside. previous cva caused problems with right vision and short term memory. he is on coumadin, inr therapeutic on admission. reports bp normally low at home. no tob, no history of dm. history of perioperative cva several years ago at [facility] with subsequent bilateral carotid stents. history afib. per admit note:The patient is a 72 y/o M w/ PMHx: Systolic CHF/Ischemic Cardiomyopathy, HTN, HLD, Moderate to severe protein-calorie nutrition, Coccyx/Ischial/Gluteal decubitus ulcer Decubitous, PAD s/p BL LE stents, CAD s/p CABG, Chronic Atrial Fibrillation on coumadin, Hypothyroidism, History of prior CVA L temporal-occipital infarction with prior deficits R eye peripheral vision deficits and unclear further deficits who presents to the [facility] ED on 03/15/18 w/ history of onset at approximately 3 AM changes to his speech, increased confusion, right-sided weakness with right upper extremity greater than right lower extremity, leaning towards the left, complaints of left eye vision changes, abrupt outbursts and shouting about the symptoms ongoing with eventual EMS call per as patient was unable to sit up in bed and had these ongoing symptoms. In the ED workup included T 97.2, heart rate 67, BP 108/53, respiratory rate 16, 98% on room air, CBC with W BC 14.1, hemoglobin 12.3, platelet 226 with left shift, INR 2.4, BMP with potassium 3.1, BUN/Cr 25/1.40, glucose 132, troponin 0.035, CT brain with no acute intracranial hemorrhage or mass-effect, old left temporal occipital infarction noted, CTA head with normal [place] without a demonstrated aneurysm or arterial thrombus, left [employer] territory infarction with expected changes of the left [employer]SUM[employer]NEY prior infarction, CTA neck with bilateral carotid artery stents present without hemodynamically significant stenosis identified, no arterial dissection. The ED patient administered normal saline. Past Medical History Past Medical History (Chronic Problems): Chronic Problems Hearing deficit (Chronic) Hypertension (Chronic) Systolic congestive heart failure (Chronic) Aortic stenosis (Chronic) Pulmonary hypertension (Chronic) Ischemic cardiomyopathy (Chronic) Iron deficiency anemia (Chronic) BPH (benign prostatic hyperplasia) (Chronic) Splenomegaly (Chronic) Gallbladder sludge (Chronic) Fatty infiltration of liver (Chronic) Venous stasis ulcers of both lower extremities (Chronic) PAD (peripheral artery disease) (Chronic) Stage III chronic kidney disease (Chronic) Chronic atrial fibrillation (Chronic) Status post coronary artery bypass graft (Chronic) Decubitus ulcer of sacral area (Chronic) Hypothyroidism (Chronic) CVA (cerebral vascular accident) (Chronic) CAD (coronary artery disease) (Chronic) Allergies latex Allergy (Verified 08/19/17 08:39) Rash LEEANN Inhibitors Adverse Reaction (Verified 08/19/17 08:39) Other Home Medications: Ambulatory Orders Medication Instructions Recorded Amiodarone HCl 200 mg PO DAILY 10/28/16 Atorvastatin Calcium [Lipitor] 20 mg PO QHS 10/28/16 Carvedilol [Coreg (Beta Kaycee)] 12.5 mg PO BID 10/28/16 Levothyroxine [Synthroid] 88 mcg PO DAILY 10/28/16 Losartan Potassium 25 mg PO DAILY 10/28/16 Tamsulosin HCl [Flomax] 0.4 mg PO QHS 10/28/16 Sertraline HCl [Zoloft] 50 mg PO DAILY 07/21/17 Furosemide [Lasix] 20 mg PO DAILY #30 tab 12/04/17 Potassium Chloride [K-Dur] 20 meq PO BIDCM #60 tab 12/04/17 Warfarin [Coumadin] 3 mg PO DAILY #30 tab 12/04/17 Surgical History: coronary bypass surgery, total hip arthroplasty - Left; bilateral carotid endarterectomy, - - Bilateral carotid endarterectomy, bilateral lower extremity stents secondary to peripheral arterial disease Psychiatric History: Depression Lives: With Family - and daughters. Smoking Status: Former smoker Tobacco Use: Non-smoker Alcohol: None Drugs: None - *Family History Maternal History Items: - - Patient's mother at age of 75 with a history of cerebrovascular accident. Paternal History Items: - - Patient's father at the age of 70 from a myocardial infarction. Review of Systems Constitutional: Reports: Anorexia - per , occurs intermmittently. Denies: Chills, Fever, Weight Change HEENT: Denies: Head Aches, Sinus Congestion, Sinus Drainage Cardiovascular: Denies: Chest Pain, Palpitations Respiratory: Denies: Cough, Shortness of breath at rest, Sputum production Gastrointestinal: Denies: Abdominal Pain, Nausea, Vomiting Genitourinary: Denies: Dysuria Musculoskeletal: Denies: Joint Pain, Joint Tenderness Skin: Denies: Rash, Wounds Neurological: Denies: Numbness, Tingling, Focal weakness Psychiatric: Denies: Anxiety, Depression, Homicidal Ideations, Suicidal Ideations Hematologic/ Lymphatic: Denies: Easy Bruising, Easy Bleeding Objective: eyes closed with eyes open with assistance right eye is fixed, left eye demonstrates nystagmus to left gaze right field cut, presumably old dysarthria, severe left arm flaccid sensation ? intact left leg also flaccid, [place] on left [id number] - Physical Exam Vital Signs Temp Pulse Resp BP Pulse Ox 36.8 C 65 20 H 111/61 94 03/16/18 10:00 03/16/18 10:00 03/16/18 10:00 03/16/18 10:00 03/16/18 10:00 Oxygen Flow Rate (L/min) 3 Oxygen Delivery Method Room Air Weight: 80 kg Body Mass Index (BMI) 22.0 Finger Stick Blood Glucose 105 Intake and Output for Last 24 Hours 03/14/18 03/15/18 03/16/18 23:59 23:59 23:59 Intake Total 480 / 480 1852 / 1852 Output Total 150 / 150 300 / 300 Balance 330 / 330 1552 / 1552 Laboratory Tests Past 24 Hrs 03/15/18 03/15/18 03/15/18 13:25 13:25 13:25 WBC 14.1 H RBC 4.40 L Hgb 12.3 L Hct 38.1 L MCV 86.6 MCH 28.0 MCHC 32.3 RDW 15.2 H RDW Differential 48.7 H Plt Count 226 MPV 8.6 Immature Gran % (Auto) 0.300 Neut % (Auto) 76.2 H Lymph % (Auto) 7.2 L [place] % (Auto) 14.6 H Eos % (Auto) 1.5 Baso % (Auto) 0.2 Absolute Neuts (auto) 10.8 H Absolute Lymphs (auto) 1.02 Total Counted Not Reportable Differential Comment Diff Path Review Reviewed PT 26.1 H INR 2.4 Sodium 137 Potassium 3.1 L Chloride 98 Carbon Dioxide 29.0 Anion Gap 10 BUN 25 H Creatinine 1.40 H Estim Creat Clear Calc 53.90 Est GFR (MDRD) Af Amer 64 Est GFR (MDRD) Non-Af 53 L BUN/Creatinine Ratio 17.9 Glucose 132 H Hemoglobin A1c Calcium 8.5 Magnesium Total Bilirubin AST ALT Alkaline Phosphatase Troponin I 0.035 Total Protein Albumin Globulin Albumin/Globulin Ratio Triglycerides Cholesterol LDL Cholesterol VLDL Cholesterol HDL Cholesterol TSH Free T4 03/15/18 03/15/18 03/16/18 13:25 13:25 05:30 WBC 10.3 RBC 4.00 L Hgb 11.2 L Hct 34.4 L MCV 86.0 MCH 28.0 MCHC 32.6 RDW 15.2 H RDW Differential 48.5 H Plt Count 220 MPV 8.6 Immature Gran % (Auto) 0.200 Neut % (Auto) 71.6 H Lymph % (Auto) 9.9 L [place] % (Auto) 15.7 H Eos % (Auto) 2.3 Baso % (Auto) 0.3 Absolute Neuts (auto) 7.4 Absolute Lymphs (auto) 1.02 Total Counted Not Reportable Differential Comment Diff Path Review Reviewed PT INR Sodium Potassium Chloride Carbon Dioxide Anion Gap BUN Creatinine Estim Creat Clear Calc Est GFR (MDRD) Af Amer Est GFR (MDRD) Non-Af BUN/Creatinine Ratio Glucose Hemoglobin A1c 7.6 H Calcium Magnesium 1.5 L Total Bilirubin AST ALT Alkaline Phosphatase Troponin I Total Protein Albumin Globulin Albumin/Globulin Ratio Triglycerides Cholesterol LDL Cholesterol VLDL Cholesterol HDL Cholesterol TSH 13.40 H Free T4 1.57 H 03/16/18 03/16/18 05:30 05:30 WBC RBC Hgb Hct MCV MCH MCHC RDW RDW Differential Plt Count MPV Immature Gran % (Auto) Neut % (Auto) Lymph % (Auto) [place] % (Auto) Eos % (Auto) Baso % (Auto) Absolute Neuts (auto) Absolute Lymphs (auto) Total Counted Differential Comment Diff Path Review PT 30.2 H INR 2.9 Sodium 139 Potassium 2.6 L* Chloride 103 Carbon Dioxide 25.0 Anion Gap 11 BUN 20 H Creatinine 1.06 Estim Creat Clear Calc 71.28 Est GFR (MDRD) Af Amer 88 Est GFR (MDRD) Non-Af 73 BUN/Creatinine Ratio 18.9 Glucose 117 H Hemoglobin A1c Calcium 8.1 L Magnesium Total Bilirubin 0.50 AST 10 L ALT 12 L Alkaline Phosphatase 98 Troponin I Total Protein 7.0 Albumin 2.5 L Globulin 4.5 H Albumin/Globulin Ratio 0.6 L Triglycerides 79 Cholesterol 100 LDL Cholesterol 52 VLDL Cholesterol 16 HDL Cholesterol 32 L TSH Free T4 POC Glucose 03/15/18 13:23 POC Glucose 105 Current Home Med List Medication Instructions Recorded Confirmed Type Amiodarone HCl 200 mg PO DAILY 10/28/16 03/15/18 History Atorvastatin Calcium [Lipitor] 20 mg PO QHS 10/28/16 03/15/18 History Carvedilol [Coreg (Beta Kaycee)] 12.5 mg PO BID 10/28/16 03/15/18 History Levothyroxine [Synthroid] 88 mcg PO DAILY 10/28/16 03/15/18 History Losartan Potassium 25 mg PO DAILY 10/28/16 03/15/18 History Tamsulosin HCl [Flomax] 0.4 mg PO QHS 10/28/16 03/15/18 History Sertraline HCl [Zoloft] 50 mg PO DAILY 07/21/17 03/15/18 History Furosemide [Lasix] 20 mg PO DAILY #30 tab 12/04/17 03/15/18 Rx Potassium Chloride [K-Dur] 20 meq PO BIDCM #60 tab 12/04/17 03/15/18 Rx Warfarin [Coumadin] 3 mg PO DAILY #30 tab 12/04/17 03/15/18 Rx Current Medications Generic Name Dose Route Start Last Admin Trade Name Freq PRN Reason Stop Dose Admin Acetaminophen 650 mg 03/15/18 17:07 Tylenol RECTAL Q4H PRN PRN fever, pain Amiodarone HCl 200 mg 03/16/18 10:00 Cordarone PO DAILY [facility] Aspirin 81 mg 03/17/18 08:00 Ecotrin PO DAILY@0800 [facility] Atorvastatin Calcium 20 mg 03/15/18 22:00 03/15/18 23:22 Lipitor PO 20 mg QHS [facility] Administration Calamine/Phenol 1 applic 03/15/18 22:00 03/15/18 23:15 Calmoseptine Ointment TOPICAL 1 applicatio BID [facility] Administration Protocol Sodium Chloride 1,000 mls @ 100 mls/hr 03/15/18 17:07 03/16/18 04:03 IV 100 mls/hr .Q10H ARIADNA Administration Famotidine 20 mg/ Sodium 10 mls @ 300 mls/hr 03/15/18 22:00 03/15/18 23:22 Chloride IV 300 mls/hr Q12 [facility] Administration Labetalol HCl 10 mg 03/15/18 17:07 Trandate IV 03/16/18 17:08 Q10M PRN MAINTAIN BP < 220/120 Levothyroxine Sodium 88 mcg 03/16/18 06:00 03/16/18 06:58 Synthroid PO 88 mcg DAILY@0600 [facility] Administration Magnesium Hydroxide 30 ml 03/15/18 17:07 Milk Of Magnesia PO DAILY PRN Constipation Nutritional Formula (Lactose Free) 120 ml 03/15/18 18:00 03/16/18 10:45 Ensure Enlive PO Not Given 4X/DAY [facility] Ondansetron HCl 4 mg 03/15/18 17:07 Zofran IV Q8H PRN PRN NAUSEA Potassium Chloride 40 meq 03/16/18 07:30 03/16/18 09:56 [facility] Promethazine HCl 12.5 mg 03/15/18 17:07 Phenergan IV Q6H PRN PRN NAUSEA/VOMITING Sertraline HCl 50 mg 03/16/18 10:00 03/16/18 10:45 Zoloft PO Not Given DAILY [facility] Sodium Chloride 5 - 15 ml 03/15/18 18:00 03/15/18 23:29 IV 10 ml UD PRN Administration SALINE FLUSH Tamsulosin HCl 0.4 mg 03/15/18 22:00 03/16/18 00:08 Flomax PO 0.4 mg QHS [facility] Administration Warfarin Sodium 3 mg 03/16/18 17:00 Coumadin (Pbkc) PO DAILY@1700 [facility] mri shows infarct in right midbrain, acute, and old left occipital infarct cta reviewed, bilateral carotid stents, vessels appear without significant stenosis. right dominant vert, vessels open. Assessment/Plan All Active Problems Bilateral leg ulcer (Resolved) GI bleeding (Resolved) right midbrain infarct, acute, afib, therapeutic inr continue coumadin pt/ot/sp consider rehab failed swallow, may need peg rec antiglycemic agent
--- NOTE | 2018-03-16 12:44 | PCM.PROGNOTE ---
<Maribell Evans - Last Filed: 03/16/18 13:09> Subjective: Patient seen and examined. Does not open eyes during assessment. States he feels better. Left arm flaccid. Garbled speech. Lethargic. No family at bedside. - Physical Exam General: No apparent distress, Lethargic HEENT: - - Right eye fixed, left eye nystagmus, pinpoint pupils. Oral: Dry Mucosa Neck: Supple, No JVD, Negative Carotid Bruits Lungs: Clear to auscultation, Diminished Cardiovascular: - - Atrial fibrillation, rate controlled. Abdomen: Bowel Sounds Present, Soft, Non Tender, Non-Distended Extremities: No clubbing, No cyanosis, No edema, Capillary Refill Less than 3 Seconds Skin: - - Generalized extensive skin dryness with flaking. Right great toe healing ulceration. Chronic gluteal decubitus ulcer x3. Musculoskeletal: No Tenderness to Palpation of Joints or Extremities Neurological: Cranial nerves II-XII grossly intact, - - Bilateral pinpoint pupils, right eye fixed, left eye nystagmus, severe left-sided weakness, dysarthria. Psych/Mental Status: Flat Affect Vital Signs Temp Pulse Resp BP Pulse Ox 98.3 F 65 20 H 111/61 94 03/16/18 10:00 03/16/18 10:00 03/16/18 10:00 03/16/18 10:00 03/16/18 10:00 Oxygen Flow Rate (L/min) 3 Oxygen Delivery Method Room Air Weight: 176 lb 5.917 oz Body Mass Index (BMI) 22.0 Finger Stick Blood Glucose 105 Intake and Output for Last 24 Hours 03/14/18 03/15/18 03/16/18 23:59 23:59 23:59 Intake Total 480 / 480 1852 / 1852 Output Total 150 / 150 300 / 300 Balance 330 / 330 1552 / 1552 Laboratory Tests Past 24 Hrs 03/15/18 03/15/18 03/15/18 13:25 13:25 13:25 WBC 14.1 H RBC 4.40 L Hgb 12.3 L Hct 38.1 L MCV 86.6 MCH 28.0 MCHC 32.3 RDW 15.2 H RDW Differential 48.7 H Plt Count 226 MPV 8.6 Immature Gran % (Auto) 0.300 Neut % (Auto) 76.2 H Lymph % (Auto) 7.2 L [place] % (Auto) 14.6 H Eos % (Auto) 1.5 Baso % (Auto) 0.2 Absolute Neuts (auto) 10.8 H Absolute Lymphs (auto) 1.02 Total Counted Not Reportable Differential Comment Diff Path Review Reviewed PT 26.1 H INR 2.4 Sodium 137 Potassium 3.1 L Chloride 98 Carbon Dioxide 29.0 Anion Gap 10 BUN 25 H Creatinine 1.40 H Estim Creat Clear Calc 53.90 Est GFR (MDRD) Af Amer 64 Est GFR (MDRD) Non-Af 53 L BUN/Creatinine Ratio 17.9 Glucose 132 H Hemoglobin A1c Calcium 8.5 Magnesium Total Bilirubin AST ALT Alkaline Phosphatase Troponin I 0.035 Total Protein Albumin Globulin Albumin/Globulin Ratio Triglycerides Cholesterol LDL Cholesterol VLDL Cholesterol HDL Cholesterol TSH Free T4 03/15/18 03/15/18 03/16/18 13:25 13:25 05:30 WBC 10.3 RBC 4.00 L Hgb 11.2 L Hct 34.4 L MCV 86.0 MCH 28.0 MCHC 32.6 RDW 15.2 H RDW Differential 48.5 H Plt Count 220 MPV 8.6 Immature Gran % (Auto) 0.200 Neut % (Auto) 71.6 H Lymph % (Auto) 9.9 L [place] % (Auto) 15.7 H Eos % (Auto) 2.3 Baso % (Auto) 0.3 Absolute Neuts (auto) 7.4 Absolute Lymphs (auto) 1.02 Total Counted Not Reportable Differential Comment Diff Path Review Reviewed PT INR Sodium Potassium Chloride Carbon Dioxide Anion Gap BUN Creatinine Estim Creat Clear Calc Est GFR (MDRD) Af Amer Est GFR (MDRD) Non-Af BUN/Creatinine Ratio Glucose Hemoglobin A1c 7.6 H Calcium Magnesium 1.5 L Total Bilirubin AST ALT Alkaline Phosphatase Troponin I Total Protein Albumin Globulin Albumin/Globulin Ratio Triglycerides Cholesterol LDL Cholesterol VLDL Cholesterol HDL Cholesterol TSH 13.40 H Free T4 1.57 H 03/16/18 03/16/18 05:30 05:30 WBC RBC Hgb Hct MCV MCH MCHC RDW RDW Differential Plt Count MPV Immature Gran % (Auto) Neut % (Auto) Lymph % (Auto) [place] % (Auto) Eos % (Auto) Baso % (Auto) Absolute Neuts (auto) Absolute Lymphs (auto) Total Counted Differential Comment Diff Path Review PT 30.2 H INR 2.9 Sodium 139 Potassium 2.6 L* Chloride 103 Carbon Dioxide 25.0 Anion Gap 11 BUN 20 H Creatinine 1.06 Estim Creat Clear Calc 71.28 Est GFR (MDRD) Af Amer 88 Est GFR (MDRD) Non-Af 73 BUN/Creatinine Ratio 18.9 Glucose 117 H Hemoglobin A1c Calcium 8.1 L Magnesium Total Bilirubin 0.50 AST 10 L ALT 12 L Alkaline Phosphatase 98 Troponin I Total Protein 7.0 Albumin 2.5 L Globulin 4.5 H Albumin/Globulin Ratio 0.6 L Triglycerides 79 Cholesterol 100 LDL Cholesterol 52 VLDL Cholesterol 16 HDL Cholesterol 32 L TSH Free T4 POC Glucose 03/15/18 13:23 POC Glucose 105 Medical Necessity - Tobacco Use Smoking Status: Former smoker Tobacco Use: Non-smoker Assessment/Plan All Active Problems Bilateral leg ulcer (Resolved) GI bleeding (Resolved) 1. Acute right midbrain infarct, hx of prior CVA (left occipital infarct)-brain CT showed no acute intracranial hemorrhage or mass effect. 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 Neck CTA with bilateral carotid artery stents without hemodynamically significant stenosis. Head CTA with left [employer] territory infarct. MRI brain with right midbrain infarct per neurology. Echocardiogram pending. PT/OT/ST. continue aspirin, statin, Coumadin. Failed a swallow evaluation. Continue ST eval. Surgery consult for PEG evaluation. 2. KEAGAN on chronic kidney disease stage III-secondary to poor oral intake. Gentle IV fluids. Hold Lasix, losartan. KEAGAN resolved. 3. Acute on chronic hypokalemia-replace per protocol. Trend BMP. History of recurrent hypokalemia. 4. Chronic gluteal decubitus ulcers, present on admission-every 2 hours position changes. Wound RN consult. 5. Chronic atrial fibrillation on anticoagulation with Coumadin- Rate controlled. 6. CAD status post CABG-continue Coumadin, statin, beta-kathleen. 7. Chronic systolic CHF/ischemic cardiomyopathy-lasix on hold. 8. Peripheral arterial disease status post lower extremity stents-continue Coumadin, statin. 9. Hypertension-permissive given suspected acute CVA. Patient on amiodarone, carvedilol, Lasix and losartan. 10. Hyperlipidemia-continue statin. 11. Hypothyroidism-TSH 13.4. Free T4 1.5. Continue Synthroid regimen when patient is able to tolerate oral intake. 12. Iron deficiency anemia-stable. 13. BPH-continue Flomax regimen. 14. Depression-continue sertraline regimen. 15. Debility- reports patient requiring significant care at home. PT/OT. 16. Moderate to severe protein calorie malnutrition- Nutrition consult. 17. New-onset type 2 diabetes mellitus-every 6 Accu-Cheks given n.p.o. status with sliding scale insulin. DVT prophylaxis-coumadin This patient was seen by RICHELLE Lovelace under the supervision of Dr. Shell. <Jaime Shell F - Last Filed: 03/16/18 14:29> - Physical Exam Vital Signs Temp Pulse Resp BP Pulse Ox 98.5 F 69 20 H 120/82 H 94 03/16/18 14:00 03/16/18 14:00 03/16/18 14:00 03/16/18 14:00 03/16/18 14:00 Oxygen Flow Rate (L/min) 3 Oxygen Delivery Method Room Air Weight: 176 lb 5.917 oz Body Mass Index (BMI) 22.0 Finger Stick Blood Glucose 105 Intake and Output for Last 24 Hours 03/14/18 03/15/18 03/16/18 23:59 23:59 23:59 Intake Total 480 / 480 2284 / 2284 Output Total 150 / 150 300 / 300 Balance 330 / 330 1983 Laboratory Tests Past 24 Hrs 03/15/18 03/15/18 03/15/18 13:25 13:25 13:25 WBC RBC Hgb Hct MCV MCH MCHC RDW RDW Differential Plt Count MPV Immature Gran % (Auto) Neut % (Auto) Lymph % (Auto) [place] % (Auto) Eos % (Auto) Baso % (Auto) Absolute Neuts (auto) Absolute Lymphs (auto) Total Counted Not Reportable Differential Comment Diff Path Review Reviewed PT INR Sodium Potassium Chloride Carbon Dioxide Anion Gap BUN Creatinine Estim Creat Clear Calc Est GFR (MDRD) Af Amer Est GFR (MDRD) Non-Af BUN/Creatinine Ratio Glucose Hemoglobin A1c 7.6 H Calcium Magnesium 1.5 L Total Bilirubin AST ALT Alkaline Phosphatase Total Protein Albumin Globulin Albumin/Globulin Ratio Triglycerides Cholesterol LDL Cholesterol VLDL Cholesterol HDL Cholesterol TSH 13.40 H Free T4 1.57 H 03/16/18 03/16/18 03/16/18 05:30 05:30 05:30 WBC 10.3 RBC 4.00 L Hgb 11.2 L Hct 34.4 L MCV 86.0 MCH 28.0 MCHC 32.6 RDW 15.2 H RDW Differential 48.5 H Plt Count 220 MPV 8.6 Immature Gran % (Auto) 0.200 Neut % (Auto) 71.6 H Lymph % (Auto) 9.9 L [place] % (Auto) 15.7 H Eos % (Auto) 2.3 Baso % (Auto) 0.3 Absolute Neuts (auto) 7.4 Absolute Lymphs (auto) 1.02 Total Counted Not Reportable Differential Comment Diff Path Review Reviewed PT 30.2 H INR 2.9 Sodium 139 Potassium 2.6 L* Chloride 103 Carbon Dioxide 25.0 Anion Gap 11 BUN 20 H Creatinine 1.06 Estim Creat Clear Calc 71.28 Est GFR (MDRD) Af Amer 88 Est GFR (MDRD) Non-Af 73 BUN/Creatinine Ratio 18.9 Glucose 117 H Hemoglobin A1c Calcium 8.1 L Magnesium Total Bilirubin 0.50 AST 10 L ALT 12 L Alkaline Phosphatase 98 Total Protein 7.0 Albumin 2.5 L Globulin 4.5 H Albumin/Globulin Ratio 0.6 L Triglycerides 79 Cholesterol 100 LDL Cholesterol 52 VLDL Cholesterol 16 HDL Cholesterol 32 L TSH Free T4 Code Visit Addendum: Dr. Shell I personally examined the patient and reviewed the chart. I agree with the above. 72-year-old male with a history of a left posterior circulation CVA in the setting of chronic A. fib. He is anticoagulated on Coumadin, and was therapeutic on admission at 2.4. He presents with a new right midbrain CVA. Currently deficits are still evolving and he is n.p.o. per speech. We will do PT and OT to evaluate placement. At the moment given how fatigued may not be a great candidate for rehab given the amount of physical therapy that is expected there and we may need to discharge to a senior care first. Also given the fact that he strokes on Coumadin he may be necessary to switch him to a NOAC. Appreciate neurology assistance. Inpatient E&M: 02309 Subs Hosp L2
[2018-03-16] MEDS: Famotidine 20mg IV Push Syringe Q12 300 MG IV ×2 (13:51→21:04)
--- NOTE | 2018-03-16 14:32 | PCM.CONS.GEN ---
Reason for Consult Date of Consultation: 03/16/18 History of Present Illness: The patient is a 72 year old M admitted due to new left-sided weakness and garbled speech. 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 Patient does still have weakness in the left arm as well as some garbled speech and some changes in vision in his left eye. Patient did bedside swallow and speech recommended n.p.o. and requested for PEG tube. Patient is currently on Coumadin for his chronic A. fib. Patient currently denies any abdominal pain patient's states that he does have a little bit more movement in his left arm than yesterday, but patient was able to respond appropriately to questions. Past Medical History Past Medical History (Chronic Problems): Chronic Problems Hearing deficit (Chronic) Hypertension (Chronic) Systolic congestive heart failure (Chronic) Aortic stenosis (Chronic) Pulmonary hypertension (Chronic) Ischemic cardiomyopathy (Chronic) Iron deficiency anemia (Chronic) BPH (benign prostatic hyperplasia) (Chronic) Splenomegaly (Chronic) Gallbladder sludge (Chronic) Fatty infiltration of liver (Chronic) Venous stasis ulcers of both lower extremities (Chronic) PAD (peripheral artery disease) (Chronic) Stage III chronic kidney disease (Chronic) Chronic atrial fibrillation (Chronic) Status post coronary artery bypass graft (Chronic) Decubitus ulcer of sacral area (Chronic) Hypothyroidism (Chronic) CVA (cerebral vascular accident) (Chronic) CAD (coronary artery disease) (Chronic) Allergies latex Allergy (Verified 08/19/17 08:39) Rash LEEANN Inhibitors Adverse Reaction (Verified 08/19/17 08:39) Other Home Medications: Ambulatory Orders Medication Instructions Recorded Amiodarone HCl 200 mg PO DAILY 10/28/16 Carvedilol [Coreg (Beta Kaycee)] 12.5 mg PO BID 10/28/16 Levothyroxine [Synthroid] 88 mcg PO DAILY 10/28/16 Losartan Potassium 25 mg PO DAILY 10/28/16 Tamsulosin HCl [Flomax] 0.4 mg PO QHS 10/28/16 Sertraline HCl [Zoloft] 50 mg PO DAILY 07/21/17 Furosemide [Lasix] 20 mg PO DAILY #30 tab 12/04/17 Warfarin [Coumadin] 3 mg PO DAILY #30 tab 12/04/17 Aspirin E.C. [Ecotrin] 81 mg PO DAILY@0800 #30 tablet 03/18/18 Atorvastatin Calcium 40 mg PO QHS #30 tablet 03/18/18 Metformin(XR) [Glucophage Xr] 500 mg PO DAILY #30 tablet 03/18/18 Potassium Chloride [K-Dur] 40 meq PO BIDCM #60 tablet 03/18/18 Quetiapine Fumarate [Seroquel] 25 mg PO QHS #30 tablet 03/18/18 Surgical History: coronary bypass surgery, total hip arthroplasty - Left; bilateral carotid endarterectomy, - - Bilateral carotid endarterectomy, bilateral lower extremity stents secondary to peripheral arterial disease Psychiatric History: Depression Lives: With Family - and daughters. Smoking Status: Former smoker Tobacco Use: Non-smoker Alcohol: None Drugs: None - *Family History Maternal History Items: - - Patient's mother at age of 75 with a history of cerebrovascular accident. Paternal History Items: - - Patient's father at the age of 70 from a myocardial infarction. Review of Systems Constitutional: Denies: Fever Eyes: Reports: Blurred vision HEENT: Reports: Difficulty Swallowing Cardiovascular: Denies: Chest Pain Respiratory: Denies: Shortness of Breath Gastrointestinal: Denies: Abdominal Pain Skin: Denies: Rash Neurological: Reports: Blurred vision, Change in Speech, Slurred speech, Focal weakness Hematologic/ Lymphatic: Reports: Easy Bruising - Physical Exam General: Cooperative, No apparent distress HEENT: Atraumatic Lungs: Normal air movement Cardiovascular: Regular rate Abdomen: Soft, Non Tender - No peritoneal signs, Distended - Moderate Extremities: No clubbing, No cyanosis, No edema Skin: No rashes Musculoskeletal: No Muscle Wasting Neurological: Slurred Speech, - - 0 out of 5 left hand resolution rep Psych/Mental Status: Flat Affect Vital Signs Temp Pulse Resp BP Pulse Ox 98.5 F 69 20 H 120/82 H 94 03/16/18 14:00 03/16/18 14:00 03/16/18 14:00 03/16/18 14:00 03/16/18 14:00 Oxygen Flow Rate (L/min) 3 Oxygen Delivery Method Room Air Weight: 176 lb 5.917 oz Body Mass Index (BMI) 22.0 Finger Stick Blood Glucose 105 Intake and Output for Last 24 Hours 03/14/18 03/15/18 03/16/18 23:59 23:59 23:59 Intake Total 480 / 480 2284 / 2284 Output Total 150 / 150 300 / 300 Balance 330 / 330 1983 Laboratory Tests Past 24 Hrs 03/15/18 03/15/18 03/15/18 13:25 13:25 13:25 WBC RBC Hgb Hct MCV MCH MCHC RDW RDW Differential Plt Count MPV Immature Gran % (Auto) Neut % (Auto) Lymph % (Auto) [place] % (Auto) Eos % (Auto) Baso % (Auto) Absolute Neuts (auto) Absolute Lymphs (auto) Total Counted Not Reportable Differential Comment Diff Path Review Reviewed PT INR Sodium Potassium Chloride Carbon Dioxide Anion Gap BUN Creatinine Estim Creat Clear Calc Est GFR (MDRD) Af Amer Est GFR (MDRD) Non-Af BUN/Creatinine Ratio Glucose Hemoglobin A1c 7.6 H Calcium Magnesium 1.5 L Total Bilirubin AST ALT Alkaline Phosphatase Total Protein Albumin Globulin Albumin/Globulin Ratio Triglycerides Cholesterol LDL Cholesterol VLDL Cholesterol HDL Cholesterol TSH 13.40 H Free T4 1.57 H 03/16/18 03/16/18 03/16/18 05:30 05:30 05:30 WBC 10.3 RBC 4.00 L Hgb 11.2 L Hct 34.4 L MCV 86.0 MCH 28.0 MCHC 32.6 RDW 15.2 H RDW Differential 48.5 H Plt Count 220 MPV 8.6 Immature Gran % (Auto) 0.200 Neut % (Auto) 71.6 H Lymph % (Auto) 9.9 L [place] % (Auto) 15.7 H Eos % (Auto) 2.3 Baso % (Auto) 0.3 Absolute Neuts (auto) 7.4 Absolute Lymphs (auto) 1.02 Total Counted Not Reportable Differential Comment Diff Path Review Reviewed PT 30.2 H INR 2.9 Sodium 139 Potassium 2.6 L* Chloride 103 Carbon Dioxide 25.0 Anion Gap 11 BUN 20 H Creatinine 1.06 Estim Creat Clear Calc 71.28 Est GFR (MDRD) Af Amer 88 Est GFR (MDRD) Non-Af 73 BUN/Creatinine Ratio 18.9 Glucose 117 H Hemoglobin A1c Calcium 8.1 L Magnesium Total Bilirubin 0.50 AST 10 L ALT 12 L Alkaline Phosphatase 98 Total Protein 7.0 Albumin 2.5 L Globulin 4.5 H Albumin/Globulin Ratio 0.6 L Triglycerides 79 Cholesterol 100 LDL Cholesterol 52 VLDL Cholesterol 16 HDL Cholesterol 32 L TSH Free T4 Assessment/Plan All Active Problems Bilateral leg ulcer (Resolved) GI bleeding (Resolved) 72-year-old male status post right midbrain infarct, malnutrition request for PEG 1. Currently patient's INR is 2.9 as he is on Coumadin due to his chronic A. fib. We will plan to place PEG tube once INR is less than 1.4 will allow to trend down initially and if we need to may need to reverse. Discussed procedure of the PEG with the patient as well as the who were agreeable. Also discussed risk including but not limited to infection, leakage, bleeding/hematoma, clogged tube, and anesthesia. We will continue to follow patient. Patient's abdomen also seemed distended per she states it is usually a little better he has had a bowel movement or if he is up moving. We will talk to the primary about giving an enema. Discussed with Maribell Evans NP. Coleen Kerr M.D. Pager: [phone] [facility] [address] [place] [address], [facility], [address] [place] [address] Office: [phone] Code Visit Inpatient E&M: 63295 Init Hosp L1
--- NOTE | 2018-03-16 14:36 | CON.PCM_ITS ---
Reason for Consult Date of Consultation: 03/16/18 History of Present Illness: The patient is a 72 year old M admitted due to new left-sided weakness and garbled speech. 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 Patient does still have weakness in the left arm as well as some garbled speech and some changes in vision in his left eye. Patient did bedside swallow and speech recommended n.p.o. and requested for PEG tube. Patient is currently on Coumadin for his chronic A. fib. Patient currently denies any abdominal pain patient's states that he does have a little bit more movement in his left arm than yesterday, but patient was able to respond appropriately to questions. Past Medical History Past Medical History (Chronic Problems): Chronic Problems Hearing deficit (Chronic) Hypertension (Chronic) Systolic congestive heart failure (Chronic) Aortic stenosis (Chronic) Pulmonary hypertension (Chronic) Ischemic cardiomyopathy (Chronic) Iron deficiency anemia (Chronic) BPH (benign prostatic hyperplasia) (Chronic) Splenomegaly (Chronic) Gallbladder sludge (Chronic) Fatty infiltration of liver (Chronic) Venous stasis ulcers of both lower extremities (Chronic) PAD (peripheral artery disease) (Chronic) Stage III chronic kidney disease (Chronic) Chronic atrial fibrillation (Chronic) Status post coronary artery bypass graft (Chronic) Decubitus ulcer of sacral area (Chronic) Hypothyroidism (Chronic) CVA (cerebral vascular accident) (Chronic) CAD (coronary artery disease) (Chronic) Allergies latex Allergy (Verified 08/19/17 08:39) Rash LEEANN Inhibitors Adverse Reaction (Verified 08/19/17 08:39) Other Home Medications: Ambulatory Orders Medication Instructions Recorded Amiodarone HCl 200 mg PO DAILY 10/28/16 Carvedilol [Coreg (Beta Kaycee)] 12.5 mg PO BID 10/28/16 Levothyroxine [Synthroid] 88 mcg PO DAILY 10/28/16 Losartan Potassium 25 mg PO DAILY 10/28/16 Tamsulosin HCl [Flomax] 0.4 mg PO QHS 10/28/16 Sertraline HCl [Zoloft] 50 mg PO DAILY 07/21/17 Furosemide [Lasix] 20 mg PO DAILY #30 tab 12/04/17 Warfarin [Coumadin] 3 mg PO DAILY #30 tab 12/04/17 Aspirin E.C. [Ecotrin] 81 mg PO DAILY@0800 #30 tablet 03/18/18 Atorvastatin Calcium 40 mg PO QHS #30 tablet 03/18/18 Metformin(XR) [Glucophage Xr] 500 mg PO DAILY #30 tablet 03/18/18 Potassium Chloride [K-Dur] 40 meq PO BIDCM #60 tablet 03/18/18 Quetiapine Fumarate [Seroquel] 25 mg PO QHS #30 tablet 03/18/18 Surgical History: coronary bypass surgery, total hip arthroplasty - Left; bilateral carotid endarterectomy, - - Bilateral carotid endarterectomy, bilateral lower extremity stents secondary to peripheral arterial disease Psychiatric History: Depression Lives: With Family - and daughters. Smoking Status: Former smoker Tobacco Use: Non-smoker Alcohol: None Drugs: None - *Family History Maternal History Items: - - Patient's mother at age of 75 with a history of cerebrovascular accident. Paternal History Items: - - Patient's father at the age of 70 from a myocardial infarction. Review of Systems Constitutional: Denies: Fever Eyes: Reports: Blurred vision HEENT: Reports: Difficulty Swallowing Cardiovascular: Denies: Chest Pain Respiratory: Denies: Shortness of Breath Gastrointestinal: Denies: Abdominal Pain Skin: Denies: Rash Neurological: Reports: Blurred vision, Change in Speech, Slurred speech, Focal weakness Hematologic/ Lymphatic: Reports: Easy Bruising - Physical Exam General: Cooperative, No apparent distress HEENT: Atraumatic Lungs: Normal air movement Cardiovascular: Regular rate Abdomen: Soft, Non Tender - No peritoneal signs, Distended - Moderate Extremities: No clubbing, No cyanosis, No edema Skin: No rashes Musculoskeletal: No Muscle Wasting Neurological: Slurred Speech, - - 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 Psych/Mental Status: Flat Affect Vital Signs Temp Pulse Resp BP Pulse Ox 98.5 F 69 20 H 120/82 H 94 03/16/18 14:00 03/16/18 14:00 03/16/18 14:00 03/16/18 14:00 03/16/18 14:00 Oxygen Flow Rate (L/min) 3 Oxygen Delivery Method Room Air Weight: 176 lb 5.917 oz Body Mass Index (BMI) 22.0 Finger Stick Blood Glucose 105 Intake and Output for Last 24 Hours 03/14/18 03/15/18 03/16/18 23:59 23:59 23:59 Intake Total 480 / 480 2284 / 2284 Output Total 150 / 150 300 / 300 Balance 330 / 330 1983 Laboratory Tests Past 24 Hrs 03/15/18 03/15/18 03/15/18 13:25 13:25 13:25 WBC RBC Hgb Hct MCV MCH MCHC RDW RDW Differential Plt Count MPV Immature Gran % (Auto) Neut % (Auto) Lymph % (Auto) [place] % (Auto) Eos % (Auto) Baso % (Auto) Absolute Neuts (auto) Absolute Lymphs (auto) Total Counted Not Reportable Differential Comment Diff Path Review Reviewed PT INR Sodium Potassium Chloride Carbon Dioxide Anion Gap BUN Creatinine Estim Creat Clear Calc Est GFR (MDRD) Af Amer Est GFR (MDRD) Non-Af BUN/Creatinine Ratio Glucose Hemoglobin A1c 7.6 H Calcium Magnesium 1.5 L Total Bilirubin AST ALT Alkaline Phosphatase Total Protein Albumin Globulin Albumin/Globulin Ratio Triglycerides Cholesterol LDL Cholesterol VLDL Cholesterol HDL Cholesterol TSH 13.40 H Free T4 1.57 H 03/16/18 03/16/18 03/16/18 05:30 05:30 05:30 WBC 10.3 RBC 4.00 L Hgb 11.2 L Hct 34.4 L MCV 86.0 MCH 28.0 MCHC 32.6 RDW 15.2 H RDW Differential 48.5 H Plt Count 220 MPV 8.6 Immature Gran % (Auto) 0.200 Neut % (Auto) 71.6 H Lymph % (Auto) 9.9 L [place] % (Auto) 15.7 H Eos % (Auto) 2.3 Baso % (Auto) 0.3 Absolute Neuts (auto) 7.4 Absolute Lymphs (auto) 1.02 Total Counted Not Reportable Differential Comment Diff Path Review Reviewed PT 30.2 H INR 2.9 Sodium 139 Potassium 2.6 L* Chloride 103 Carbon Dioxide 25.0 Anion Gap 11 BUN 20 H Creatinine 1.06 Estim Creat Clear Calc 71.28 Est GFR (MDRD) Af Amer 88 Est GFR (MDRD) Non-Af 73 BUN/Creatinine Ratio 18.9 Glucose 117 H Hemoglobin A1c Calcium 8.1 L Magnesium Total Bilirubin 0.50 AST 10 L ALT 12 L Alkaline Phosphatase 98 Total Protein 7.0 Albumin 2.5 L Globulin 4.5 H Albumin/Globulin Ratio 0.6 L Triglycerides 79 Cholesterol 100 LDL Cholesterol 52 VLDL Cholesterol 16 HDL Cholesterol 32 L TSH Free T4 Assessment/Plan All Active Problems Bilateral leg ulcer (Resolved) GI bleeding (Resolved) 72-year-old male status post right midbrain infarct, malnutrition request for PEG 1. Currently patient's INR is 2.9 as he is on Coumadin due to his chronic A. fib. We will plan to place PEG tube once INR is less than 1.4 will allow to trend down initially and if we need to may need to reverse. Discussed procedure of the PEG with the patient as well as the who were agreeable. Also discussed risk including but not limited to infection, leakage, bleeding/hematoma, clogged tube, and anesthesia. We will continue to follow patient. Patient's abdomen also seemed distended per she states it is usually a little better he has had a bowel movement or if he is up moving. We will talk to the primary about giving an enema. Discussed with Maribell Evans NP. Coleen Kerr M.D. Pager: [phone] [facility] [address] [place] [address], [facility], [address] [place] [address] Office: [phone] Code Visit Inpatient E&M: 00319 Init Hosp L1
[2018-03-16 15:25] LABS: Potassium 2.7 mmol/L (3.5-5.1)
[2018-03-16 16:54] LABS: Phosphorus 2.6 mg/dL (2.5-4.9)
[2018-03-16] MEDS: Potassium Chloride 40 MEQ in 0.9% Normal Saline 1,000 ML 100 MEQ IV (18:01)
[2018-03-16] MEDS: Enoxaparin 80 MG/0.8 ML Syringe SC (18:08)
[2018-03-16 18:16] LABS: Bedside Glucose 102 mg/dL (70-110)
[2018-03-16] MEDS: Aspirin 300 MG Suppository RECTAL (21:03)
[2018-03-17] VITALS (12 sets, daily range): BP systolic 120–144; BP diastolic 62–94; PULSE 66–84; RESP 16–18; TEMP 36.3–36.9; O2SAT 94–98; BMI 22.0
--- NOTE | 2018-03-17 00:27 | NURSING ---
Patient uncooperative with reading off of NIHSS papers. Patient will not keep eyes open for test.
[2018-03-17 00:35] LABS: Bedside Glucose 90 mg/dL (70-110)
[2018-03-17] MEDS: Potassium Chloride 40 MEQ in 0.9% Normal Saline 1,000 ML 100 MEQ IV (04:07)
[2018-03-17] MEDS: Enoxaparin 80 MG/0.8 ML Syringe SC (05:30)
[2018-03-17 05:37] LABS: Bedside Glucose 84 mg/dL (70-110)
[2018-03-17 06:32] LABS: Anion Gap 12 (5-15); BUN 16 mg/dL (7-18); BUN/Creat Ratio 15.5 RATIO (10-20); Calcium,Total 8.2 mg/dL (8.5-10.1); Chloride 112 mmol/L (98-107); Creatinine, Serum 1.03 mg/dL (0.70-1.30); EST Glomerular Filtration Rate 75 mL/min (>60); Est Glom Filt Rate - Afr Amer 91 mL/min (>60); Estimated Creatinine Clearance 73.35 ml/min; Glucose 87 mg/dL (74-106); Sodium Level 146 mmol/L (136-145)
[2018-03-17 06:50] LABS: International Normalized Ratio 3.1; Prothrombin Time (Protime)PT. 31.9 SECONDS (11.7-14.9)
--- NOTE | 2018-03-17 08:45 | PCM.PN.SRG ---
Subjective: denies abd pain, answers questions w eyes shut - Physical Exam General: Cooperative, No apparent distress HEENT: Atraumatic Abdomen: Soft, Non Tender - no PS, Distended - mod Vital Signs Temp Pulse Resp BP Pulse Ox 97.6 F L 66 16 131/75 H 97 03/17/18 07:45 03/17/18 07:45 03/17/18 07:45 03/17/18 07:45 03/17/18 07:45 Oxygen Flow Rate (L/min) 3 Oxygen Delivery Method Room Air Weight: 176 lb 5.917 oz Body Mass Index (BMI) 22.0 Finger Stick Blood Glucose 105 Intake and Output for Last 24 Hours 03/15/18 03/16/18 03/17/18 23:59 23:59 23:59 Intake Total 480 / 480 3290 / 3290 512 / 512 Output Total 150 / 150 300 / 300 Balance 330 / 330 2990 / 2990 512 / 512 Laboratory Tests Past 24 Hrs 03/15/18 03/16/18 03/16/18 13:25 05:30 14:55 Diff Path Review Reviewed Reviewed PT INR Sodium Potassium 2.7 L* Chloride Carbon Dioxide Anion Gap BUN Creatinine Estim Creat Clear Calc Est GFR (MDRD) Af Amer Est GFR (MDRD) Non-Af BUN/Creatinine Ratio Glucose Calcium Phosphorus 03/16/18 03/17/18 03/17/18 15:00 05:45 05:45 Diff Path Review PT 31.9 H INR 3.1 Sodium 146 H Potassium 3.0 L Chloride 112 H Carbon Dioxide 22.0 Anion Gap 12 BUN 16 Creatinine 1.03 Estim Creat Clear Calc 73.35 Est GFR (MDRD) Af Amer 91 Est GFR (MDRD) Non-Af 75 BUN/Creatinine Ratio 15.5 Glucose 87 Calcium 8.2 L Phosphorus 2.6 POC Glucose 03/17/18 03/17/18 03/16/18 05:25 00:06 18:07 POC Glucose 84 90 102 Medical Necessity - Tobacco Use Smoking Status: Former smoker Tobacco Use: Non-smoker Assessment/Plan All Active Problems Bilateral leg ulcer (Resolved) GI bleeding (Resolved) 72-year-old male status post right midbrain infarct, malnutrition request for PEG, hx of colonic distension during previous hospitalization, hypokalemia 1. Patient's INR is currently 3.1, patient's abdomen is still distended likely due to colonic distention which she has had a history of previously with hypokalemia if the colonic distention does not improve I do not believe that the PEG pull technique can be done safely as I am not sure that the stomach would be able to move the colon out of the way in order to place the PEG. We will continue to follow. Discussed with Maribell Evans NP. Coleen Kerr M.D. Pager: [phone] [facility] [address] [place] [address], [address] [place] [id number] Office: [phone]
--- NOTE | 2018-03-17 08:48 | PN.SURG_ITS ---
Subjective: denies abd pain, answers questions w eyes shut - Physical Exam General: Cooperative, No apparent distress HEENT: Atraumatic Abdomen: Soft, Non Tender - no PS, Distended - mod Vital Signs Temp Pulse Resp BP Pulse Ox 97.6 F L 66 16 131/75 H 97 03/17/18 07:45 03/17/18 07:45 03/17/18 07:45 03/17/18 07:45 03/17/18 07:45 Oxygen Flow Rate (L/min) 3 Oxygen Delivery Method Room Air Weight: 176 lb 5.917 oz Body Mass Index (BMI) 22.0 Finger Stick Blood Glucose 105 Intake and Output for Last 24 Hours 03/15/18 03/16/18 03/17/18 23:59 23:59 23:59 Intake Total 480 / 480 3290 / 3290 512 / 512 Output Total 150 / 150 300 / 300 Balance 330 / 330 2990 / 2990 512 / 512 Laboratory Tests Past 24 Hrs 03/15/18 03/16/18 03/16/18 13:25 05:30 14:55 Diff Path Review Reviewed Reviewed PT INR Sodium Potassium 2.7 L* Chloride Carbon Dioxide Anion Gap BUN Creatinine Estim Creat Clear Calc Est GFR (MDRD) Af Amer Est GFR (MDRD) Non-Af BUN/Creatinine Ratio Glucose Calcium Phosphorus 03/16/18 03/17/18 03/17/18 15:00 05:45 05:45 Diff Path Review PT 31.9 H INR 3.1 Sodium 146 H Potassium 3.0 L Chloride 112 H Carbon Dioxide 22.0 Anion Gap 12 BUN 16 Creatinine 1.03 Estim Creat Clear Calc 73.35 Est GFR (MDRD) Af Amer 91 Est GFR (MDRD) Non-Af 75 BUN/Creatinine Ratio 15.5 Glucose 87 Calcium 8.2 L Phosphorus 2.6 POC Glucose 03/17/18 03/17/18 03/16/18 05:25 00:06 18:07 POC Glucose 84 90 102 Medical Necessity - Tobacco Use Smoking Status: Former smoker Tobacco Use: Non-smoker Assessment/Plan All Active Problems Bilateral leg ulcer (Resolved) GI bleeding (Resolved) 72-year-old male status post right midbrain infarct, malnutrition request for PEG, hx of colonic distension during previous hospitalization, hypokalemia 1. Patient's INR is currently 3.1, patient's abdomen is still distended likely due to colonic distention which she has had a history of previously with hypokalemia if the colonic distention does not improve I do not believe that the PEG pull technique can be done safely as I am not sure that the stomach would be able to move the colon out of the way in order to place the PEG. We will continue to follow. Discussed with Maribell Evans NP. Coleen Kerr M.D. Pager: [phone] [facility] [address] [place] [address], [address] [place] [id number] Office: [phone]
[2018-03-17] MEDS: Aspirin 300 MG Suppository RECTAL (09:11)
[2018-03-17] MEDS: Menthol/Lanolin/Calamine/Znox 113 GM Tube 1 APPLIC TOPICAL ×2 (09:11→23:37)
[2018-03-17] MEDS: Famotidine 20mg IV Push Syringe Q12 300 MG IV ×2 (09:12→23:40)
[2018-03-17] MEDS: 0.9% NaCl Peripheral Flush Adult/Peds IV ×2 (09:12→23:42)
--- NOTE | 2018-03-17 11:32 | PCM.PN.NEU ---
Subjective: agitated and violent this am per staff. 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 - Physical Exam Vital Signs Temp Pulse Resp BP Pulse Ox 36.4 C L 66 16 131/75 H 97 03/17/18 07:45 03/17/18 07:45 03/17/18 07:45 03/17/18 07:45 03/17/18 07:45 Oxygen Flow Rate (L/min) 3 Oxygen Delivery Method Room Air Weight: 80 kg Body Mass Index (BMI) 22.0 Finger Stick Blood Glucose 105 Intake and Output for Last 24 Hours 03/15/18 03/16/18 03/17/18 23:59 23:59 23:59 Intake Total 480 / 480 3290 / 3290 512 / 512 Output Total 150 / 150 300 / 300 Balance 330 / 330 2990 / 2990 512 / 512 Laboratory Tests Past 24 Hrs 03/15/18 03/16/18 03/16/18 13:25 14:55 15:00 Diff Path Review Reviewed PT INR Sodium Potassium 2.7 L* Chloride Carbon Dioxide Anion Gap BUN Creatinine Estim Creat Clear Calc Est GFR (MDRD) Af Amer Est GFR (MDRD) Non-Af BUN/Creatinine Ratio Glucose Calcium Phosphorus 2.6 03/17/18 03/17/18 05:45 05:45 Diff Path Review PT 31.9 H INR 3.1 Sodium 146 H Potassium 3.0 L Chloride 112 H Carbon Dioxide 22.0 Anion Gap 12 BUN 16 Creatinine 1.03 Estim Creat Clear Calc 73.35 Est GFR (MDRD) Af Amer 91 Est GFR (MDRD) Non-Af 75 BUN/Creatinine Ratio 15.5 Glucose 87 Calcium 8.2 L Phosphorus POC Glucose 03/17/18 03/17/18 03/16/18 05:25 00:06 18:07 POC Glucose 84 90 102 Current Home Med List Medication Instructions Recorded Confirmed Type Amiodarone HCl 200 mg PO DAILY 10/28/16 03/15/18 History Atorvastatin Calcium [Lipitor] 20 mg PO QHS 10/28/16 03/15/18 History Carvedilol [Coreg (Beta Kaycee)] 12.5 mg PO BID 10/28/16 03/15/18 History Levothyroxine [Synthroid] 88 mcg PO DAILY 10/28/16 03/15/18 History Losartan Potassium 25 mg PO DAILY 10/28/16 03/15/18 History Tamsulosin HCl [Flomax] 0.4 mg PO QHS 10/28/16 03/15/18 History Sertraline HCl [Zoloft] 50 mg PO DAILY 07/21/17 03/15/18 History Furosemide [Lasix] 20 mg PO DAILY #30 tab 12/04/17 03/15/18 Rx Potassium Chloride [K-Dur] 20 meq PO BIDCM #60 tab 12/04/17 03/15/18 Rx Warfarin [Coumadin] 3 mg PO DAILY #30 tab 12/04/17 03/15/18 Rx Current Medications Generic Name Dose Route Start Last Admin Trade Name Freq PRN Reason Stop Dose Admin Acetaminophen 650 mg 03/15/18 17:07 Tylenol RECTAL Q4H PRN PRN fever, pain Amiodarone HCl 200 mg 03/16/18 10:00 03/17/18 09:12 Cordarone PO Not Given DAILY ARIADNA Aspirin 300 mg 03/17/18 10:00 03/17/18 09:11 Aspirin RECTAL 300 mg DAILY ARIADNA Administration Atorvastatin Calcium 20 mg 03/15/18 22:00 03/16/18 20:39 Lipitor PO Not Given QHS [facility] Calamine/Phenol 1 applic 03/15/18 22:00 03/17/18 09:11 Calmoseptine Ointment TOPICAL 1 applicatio BID ARIADNA Administration Protocol Dextrose 25 gm 03/17/18 02:07 D50w Syringe IV PRN PRN BS < 70 and patient NPO Enoxaparin Sodium 80 mg 03/16/18 18:00 03/17/18 05:30 Lovenox SC 80 mg Q12@0600,1800 ARIADNA Administration Famotidine 20 mg/ Sodium 10 mls @ 300 mls/hr 03/15/18 22:00 03/17/18 09:12 Chloride IV 300 mls/hr Q12 ARIADNA Administration Potassium Chloride 40 meq/ 1,020 mls @ 100 mls/hr 03/16/18 20:00 03/17/18 04:07 Sodium Chloride IV 100 mls/hr .[id number] ARIADNA Administration Potassium Chloride 10 meq in 100 mls @ 100 mls/hr 03/17/18 11:00 IV BOLUS 03/17/18 14:59 Q1H [facility] Insulin Human Lispro 0 unit 03/16/18 18:00 03/17/18 05:27 Humalog Jayapen (Bkc) SC Not Given Q6 [facility] Protocol Levothyroxine Sodium 300 mcg 03/23/18 10:00 Levothyroxine Sodium IV Q7D [facility] Magnesium Hydroxide 30 ml 03/15/18 17:07 Milk Of Magnesia PO DAILY PRN Constipation Nutritional Formula (Lactose Free) 120 ml 03/16/18 13:00 03/17/18 09:12 Ensure Enlive PO Not Given 4X/DAY [facility] Ondansetron HCl 4 mg 03/15/18 17:07 Zofran IV Q8H PRN PRN NAUSEA Promethazine HCl 12.5 mg 03/15/18 17:07 Phenergan IV Q6H PRN PRN NAUSEA/VOMITING Sertraline HCl 50 mg 03/16/18 10:00 03/17/18 09:12 Zoloft PO Not Given DAILY [facility] Sodium Chloride 5 - 15 ml 03/15/18 18:00 03/17/18 09:12 IV 10 ml UD PRN Administration SALINE FLUSH Tamsulosin HCl 0.4 mg 03/15/18 22:00 03/16/18 20:39 Flomax PO Not Given QHS [facility] Medical Necessity - Tobacco Use Smoking Status: Former smoker Tobacco Use: Non-smoker Assessment/Plan All Active Problems Bilateral leg ulcer (Resolved) GI bleeding (Resolved) right midbrain infarct, acute, afib, therapeutic inr, agitation continue coumadin pt/ot/sp prob needs ecf passed swallow start qhs seroquel, limit circadian disruption
--- NOTE | 2018-03-17 11:35 | PN.NEURO_ITS ---
Subjective: agitated and violent this am per staff. 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 - Physical Exam Vital Signs Temp Pulse Resp BP Pulse Ox 36.4 C L 66 16 131/75 H 97 03/17/18 07:45 03/17/18 07:45 03/17/18 07:45 03/17/18 07:45 03/17/18 07:45 Oxygen Flow Rate (L/min) 3 Oxygen Delivery Method Room Air Weight: 80 kg Body Mass Index (BMI) 22.0 Finger Stick Blood Glucose 105 Intake and Output for Last 24 Hours 03/15/18 03/16/18 03/17/18 23:59 23:59 23:59 Intake Total 480 / 480 3290 / 3290 512 / 512 Output Total 150 / 150 300 / 300 Balance 330 / 330 2990 / 2990 512 / 512 Laboratory Tests Past 24 Hrs 03/15/18 03/16/18 03/16/18 13:25 14:55 15:00 Diff Path Review Reviewed PT INR Sodium Potassium 2.7 L* Chloride Carbon Dioxide Anion Gap BUN Creatinine Estim Creat Clear Calc Est GFR (MDRD) Af Amer Est GFR (MDRD) Non-Af BUN/Creatinine Ratio Glucose Calcium Phosphorus 2.6 03/17/18 03/17/18 05:45 05:45 Diff Path Review PT 31.9 H INR 3.1 Sodium 146 H Potassium 3.0 L Chloride 112 H Carbon Dioxide 22.0 Anion Gap 12 BUN 16 Creatinine 1.03 Estim Creat Clear Calc 73.35 Est GFR (MDRD) Af Amer 91 Est GFR (MDRD) Non-Af 75 BUN/Creatinine Ratio 15.5 Glucose 87 Calcium 8.2 L Phosphorus POC Glucose 03/17/18 03/17/18 03/16/18 05:25 00:06 18:07 POC Glucose 84 90 102 Current Home Med List Medication Instructions Recorded Confirmed Type Amiodarone HCl 200 mg PO DAILY 10/28/16 03/15/18 History Atorvastatin Calcium [Lipitor] 20 mg PO QHS 10/28/16 03/15/18 History Carvedilol [Coreg (Beta Kaycee)] 12.5 mg PO BID 10/28/16 03/15/18 History Levothyroxine [Synthroid] 88 mcg PO DAILY 10/28/16 03/15/18 History Losartan Potassium 25 mg PO DAILY 10/28/16 03/15/18 History Tamsulosin HCl [Flomax] 0.4 mg PO QHS 10/28/16 03/15/18 History Sertraline HCl [Zoloft] 50 mg PO DAILY 07/21/17 03/15/18 History Furosemide [Lasix] 20 mg PO DAILY #30 tab 12/04/17 03/15/18 Rx Potassium Chloride [K-Dur] 20 meq PO BIDCM #60 tab 12/04/17 03/15/18 Rx Warfarin [Coumadin] 3 mg PO DAILY #30 tab 12/04/17 03/15/18 Rx Current Medications Generic Name Dose Route Start Last Admin Trade Name Freq PRN Reason Stop Dose Admin Acetaminophen 650 mg 03/15/18 17:07 Tylenol RECTAL Q4H PRN PRN fever, pain Amiodarone HCl 200 mg 03/16/18 10:00 03/17/18 09:12 Cordarone PO Not Given DAILY ARIADNA Aspirin 300 mg 03/17/18 10:00 03/17/18 09:11 Aspirin RECTAL 300 mg DAILY ARIADNA Administration Atorvastatin Calcium 20 mg 03/15/18 22:00 03/16/18 20:39 Lipitor PO Not Given QHS [facility] Calamine/Phenol 1 applic 03/15/18 22:00 03/17/18 09:11 Calmoseptine Ointment TOPICAL 1 applicatio BID ARIADNA Administration Protocol Dextrose 25 gm 03/17/18 02:07 D50w Syringe IV PRN PRN BS < 70 and patient NPO Enoxaparin Sodium 80 mg 03/16/18 18:00 03/17/18 05:30 Lovenox SC 80 mg Q12@0600,1800 ARIADNA Administration Famotidine 20 mg/ Sodium 10 mls @ 300 mls/hr 03/15/18 22:00 03/17/18 09:12 Chloride IV 300 mls/hr Q12 ARIADNA Administration Potassium Chloride 40 meq/ 1,020 mls @ 100 mls/hr 03/16/18 20:00 03/17/18 04:07 Sodium Chloride IV 100 mls/hr .[id number] ARIADNA Administration Potassium Chloride 10 meq in 100 mls @ 100 mls/hr 03/17/18 11:00 IV BOLUS 03/17/18 14:59 Q1H [facility] Insulin Human Lispro 0 unit 03/16/18 18:00 03/17/18 05:27 Humalog Jayapen (Bkc) SC Not Given Q6 [facility] Protocol Levothyroxine Sodium 300 mcg 03/23/18 10:00 Levothyroxine Sodium IV Q7D [facility] Magnesium Hydroxide 30 ml 03/15/18 17:07 Milk Of Magnesia PO DAILY PRN Constipation Nutritional Formula (Lactose Free) 120 ml 03/16/18 13:00 03/17/18 09:12 Ensure Enlive PO Not Given 4X/DAY [facility] Ondansetron HCl 4 mg 03/15/18 17:07 Zofran IV Q8H PRN PRN NAUSEA Promethazine HCl 12.5 mg 03/15/18 17:07 Phenergan IV Q6H PRN PRN NAUSEA/VOMITING Sertraline HCl 50 mg 03/16/18 10:00 03/17/18 09:12 Zoloft PO Not Given DAILY [facility] Sodium Chloride 5 - 15 ml 03/15/18 18:00 03/17/18 09:12 IV 10 ml UD PRN Administration SALINE FLUSH Tamsulosin HCl 0.4 mg 03/15/18 22:00 03/16/18 20:39 Flomax PO Not Given QHS [facility] Medical Necessity - Tobacco Use Smoking Status: Former smoker Tobacco Use: Non-smoker Assessment/Plan All Active Problems Bilateral leg ulcer (Resolved) GI bleeding (Resolved) right midbrain infarct, acute, afib, therapeutic inr, agitation continue coumadin pt/ot/sp prob needs ecf passed swallow start qhs seroquel, limit circadian disruption
[2018-03-17] MEDS: Potassium Chloride 10mEq/100mL 10 MEQ/100 ML IV.SOLN. 100 MEQ IV BOLUS ×4 (11:36→15:41)
[2018-03-17 11:46] LABS: Bedside Glucose 105 mg/dL (70-110)
--- NOTE | 2018-03-17 15:01 | PCM.PROGNOTE ---
<Maribell Evans - Last Filed: 03/17/18 15:44> Subjective: Patient seen and examined. Yelling out, requesting water. Agitated. No family at bedside. - Physical Exam General: Alert, Oriented x3, No apparent distress HEENT: Atraumatic, PERRLA, EOMI, Normocephalic Oral: Dry Mucosa Neck: Supple, No JVD, Negative Carotid Bruits Lungs: Clear to auscultation, Diminished Cardiovascular: - - Atrial fibrillation, rate controlled Abdomen: Bowel Sounds Present, Soft, Non Tender, Distended Extremities: No clubbing, No cyanosis, No edema, Capillary Refill Less than 3 Seconds Skin: - - Generalized extensive skin dryness with flaking. Right great toe healing ulceration. Chronic gluteal decubitus ulcer x3. Musculoskeletal: No Tenderness to Palpation of Joints or Extremities Neurological: Cranial nerves II-XII grossly intact, - - Bilateral pinpoint pupils, right eye fixed, left eye nystagmus, severe left-sided weakness, dysarthria. Psych/Mental Status: Agitated Vital Signs Temp Pulse Resp BP Pulse Ox 97.4 F L 72 16 137/62 H 94 03/17/18 11:45 03/17/18 11:45 03/17/18 11:45 03/17/18 11:45 03/17/18 11:45 Oxygen Flow Rate (L/min) 3 Oxygen Delivery Method Room Air Weight: 176 lb 5.917 oz Body Mass Index (BMI) 22.0 Finger Stick Blood Glucose 105 Intake and Output for Last 24 Hours 03/15/18 03/16/18 03/17/18 23:59 23:59 23:59 Intake Total 480 / 480 3290 / 3290 1570 / 1570 Output Total 150 / 150 300 / 300 Balance 330 / 330 2990 / 2990 1570 / 1570 Laboratory Tests Past 24 Hrs 03/16/18 03/16/18 03/17/18 14:55 15:00 05:45 PT INR Sodium 146 H Potassium 2.7 L* 3.0 L Chloride 112 H Carbon Dioxide 22.0 Anion Gap 12 BUN 16 Creatinine 1.03 Estim Creat Clear Calc 73.35 Est GFR (MDRD) Af Amer 91 Est GFR (MDRD) Non-Af 75 BUN/Creatinine Ratio 15.5 Glucose 87 Calcium 8.2 L Phosphorus 2.6 03/17/18 05:45 PT 31.9 H INR 3.1 Sodium Potassium Chloride Carbon Dioxide Anion Gap BUN Creatinine Estim Creat Clear Calc Est GFR (MDRD) Af Amer Est GFR (MDRD) Non-Af BUN/Creatinine Ratio Glucose Calcium Phosphorus POC Glucose 03/17/18 03/17/18 03/17/18 11:35 05:25 00:06 POC Glucose 105 84 90 03/16/18 18:07 POC Glucose 102 Medical Necessity - Tobacco Use Smoking Status: Former smoker Tobacco Use: Non-smoker Assessment/Plan All Active Problems Bilateral leg ulcer (Resolved) GI bleeding (Resolved) 1. Acute right midbrain infarct, hx of prior CVA (left occipital infarct)-brain CT showed no acute intracranial hemorrhage or mass effect. 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 Neck CTA with bilateral carotid artery stents without hemodynamically significant stenosis. Head CTA with left C [employer] territory infarct. MRI brain with right midbrain infarct per neurology. Echocardiogram shows an EF of 40%, stage III diastolic dysfunction, pulmonary artery systolic pressure 52 mmHg. PT/OT/ST. Continue aspirin, statin, Coumadin. Initially failed swallow evaluation. Repeat speech therapy evaluation today recommended mechanical soft food consistency with thin liquid. SNF pending pre-cert if patient agreeable. 2. KEAGAN on chronic kidney disease stage III-secondary to poor oral intake. Hold Lasix, losartan. KEAGAN resolved. 3. Acute on chronic hypokalemia-replace per protocol. Trend BMP. History of recurrent hypokalemia. 4. Chronic gluteal decubitus ulcers, present on admission-every 2 hours position changes. Wound RN consult. 5. Chronic atrial fibrillation on anticoagulation with Coumadin- Rate controlled. 6. CAD status post CABG-continue Coumadin, statin, beta-kathleen. 7. Chronic systolic CHF/ischemic cardiomyopathy- Echo with EF 40% as noted above. 8. Peripheral arterial disease status post lower extremity stents-continue Coumadin, statin. 9. Hypertension-permissive given suspected acute CVA. Patient on amiodarone, carvedilol, Lasix and losartan. 10. Hyperlipidemia-continue statin. 11. Hypothyroidism-TSH 13.4. Free T4 1.5. Continue Synthroid regimen. Repeat TSH in 4-6 weeks. 12. Iron deficiency anemia-stable. 13. BPH-continue Flomax regimen. 14. Depression-continue sertraline regimen. 15. Debility- reports patient requiring significant care at home. PT/OT. 16. Moderate to severe protein calorie malnutrition- Nutrition consult. 17. New-onset type 2 diabetes [id number] AC at bedtime with sliding scale insulin. Hemoglobin A1c 7.6%. DVT prophylaxis-coumadin Discharge planning: SNF if patient/family agreeable. This patient was seen by RICHELLE Lovelace under the supervision of Dr. Shell. <Jaime Shell F - Last Filed: 03/17/18 16:25> - Physical Exam Vital Signs Temp Pulse Resp BP Pulse Ox 97.7 F L 72 16 142/94 H 96 03/17/18 15:43 03/17/18 15:43 03/17/18 15:43 03/17/18 15:43 03/17/18 15:43 Oxygen Flow Rate (L/min) 3 Oxygen Delivery Method Room Air Weight: 176 lb 5.917 oz Body Mass Index (BMI) 22.0 Finger Stick Blood Glucose 105 Intake and Output for Last 24 Hours 03/15/18 03/16/18 03/17/18 23:59 23:59 23:59 Intake Total 480 / 480 3290 / 3290 1570 / 1570 Output Total 150 / 150 300 / 300 Balance 330 / 330 2990 / 2990 1570 / 1570 Laboratory Tests Past 24 Hrs 03/16/18 03/17/18 03/17/18 15:00 05:45 05:45 PT 31.9 H INR 3.1 Sodium 146 H Potassium 3.0 L Chloride 112 H Carbon Dioxide 22.0 Anion Gap 12 BUN 16 Creatinine 1.03 Estim Creat Clear Calc 73.35 Est GFR (MDRD) Af Amer 91 Est GFR (MDRD) Non-Af 75 BUN/Creatinine Ratio 15.5 Glucose 87 Calcium 8.2 L Phosphorus 2.6 POC Glucose 03/17/18 03/17/18 03/17/18 11:35 05:25 00:06 POC Glucose 105 84 90 03/16/18 18:07 POC Glucose 102 Code Visit Addendum: Dr. Shell I personally examined the patient and reviewed the chart. I agree with the above. 72-year-old male with a history of a left posterior circulation CVA in the setting he had another right midbrain CVA on admission despite being on Coumadin with therapeutic INR. Yesterday he was n.p.o., but today he was cleared by speech to continue with p.o. intake. Discussion with the family now options for therapy after discharge. Inpatient E&M: 78216 Subs Hosp L2
--- NOTE | 2018-03-17 16:01 | CASEMGMT ---
SW went to talk with patient's about d/c plan. RN was trying to do NIH scoring and patient was uncooperative. He kept yelling and swinging his arms. Patient's would calm him down. She told SW she understands why we are saying he needs SNF. However, she knows if he goes to a SNF he is going to get violent. She said she is going to talk with her son rush. SW did leave a list of in network facilities with patient's . SW to follow. Kay JOHNSON MSW
[2018-03-17 17:01] LABS: Bedside Glucose 119 mg/dL (70-110)
--- NOTE | 2018-03-17 19:10 | NURSING ---
Patient is not tolerating registered nurse maternity, he continues to pull of leads and yell when we try to reapply them. Leads were briefly reapplied but he took them off quickly.
[2018-03-17] MEDS: Tamsulosin HCl 0.4 MG Capsule PO (23:39)
[2018-03-17] MEDS: Atorvastatin Calcium 80 MG Tablet PO (23:40)
[2018-03-17] MEDS: QUEtiapine 25 MG Tablet PO (23:41)
[2018-03-18] VITALS (9 sets, daily range): BP systolic 101–136; BP diastolic 66–73; PULSE 74–83; RESP 18; TEMP 36.8–37.2; O2SAT 93–97; BMI 22.0
[2018-03-18 01:03] LABS: Bedside Glucose 131 mg/dL (70-110)
[2018-03-18 06:26] LABS: International Normalized Ratio 3.1; Prothrombin Time (Protime)PT. 32.3 SECONDS (11.7-14.9)
[2018-03-18 06:29] LABS: Hematocrit 33.4 % (40-54); Hemoglobin 10.7 g/dl (13.0-16.5); Mean Corpuscular Hgb 28.2 pg (27.0-32.0); Mean Corpuscular Volume 87.9 fL (80-94); Mean Platelet Vol. 8.7 fl (6.2-12.0); Platelet Count 231 K/mm3 (150-450); RBC Distribution Width CV 15.4 % (11.6-14.6); RBC Distribution Width SD 49.6 fl (35.1-43.9); White Blood Count 8.9 K/mm3 (4.4-11.0)
[2018-03-18 06:30] LABS: Scan Indicated on CBC? Y/N NO
[2018-03-18 06:50] LABS: Anion Gap 10 (5-15); BUN 13 mg/dL (7-18); BUN/Creat Ratio 12.9 RATIO (10-20); Calcium,Total 8.3 mg/dL (8.5-10.1); Chloride 109 mmol/L (98-107); Creatinine, Serum 1.01 mg/dL (0.70-1.30); EST Glomerular Filtration Rate 77 mL/min (>60); Est Glom Filt Rate - Afr Amer 93 mL/min (>60); Estimated Creatinine Clearance 74.81 ml/min; Glucose 116 mg/dL (74-106); Potassium 3.2 mmol/L (3.5-5.1); Sodium Level 142 mmol/L (136-145)
[2018-03-18] MEDS: Levothyroxine 88 MCG Tablet PO (06:52)
[2018-03-18 07:00] LABS: Bedside Glucose 119 mg/dL (70-110)
--- NOTE | 2018-03-18 09:08 | NURSING ---
In to reassess bilateral buttocks. patient does not want this nurse to reposition him, but reluctantly turned so this nurse could assess buttocks. buttocks appears improved. applied calmoseptine. pt tolerated well. repositioned for comfort. bed exit on. will monitor.
[2018-03-18] MEDS: Aspirin E.C. 81 MG Tablet PO (10:50)
[2018-03-18] MEDS: Amiodarone 200 MG Tablet PO (10:50)
[2018-03-18] MEDS: Sertraline 50 MG Tablet PO (10:51)
[2018-03-18] MEDS: Famotidine 20 MG Tablet PO (10:55)
[2018-03-18] MEDS: Menthol/Lanolin/Calamine/Znox 113 GM Tube 1 APPLIC TOPICAL (11:01)
[2018-03-18 11:11] LABS: Bedside Glucose 108 mg/dL (70-110)
--- NOTE | 2018-03-18 11:56 | DCINST_ITS ---
You will use the following diet at home:: Calorie/Carbohydrate Controlled (specify 1200, 1400, etc), Cardiac Your food should be the consistency of: Mechanical soft (ground) Your liquids should be the consistency of: Regular/Thin Discharge Activity: Return to Normal Activity Call your doctor if you observe: Numbness or Tingling, Shortness of breath, Dizziness, Fainting spells, Chest pain Allergies/Adverse Reactions: Allergies latex Allergy (Verified 08/19/17 08:39) Rash LEEANN Inhibitors Adverse Reaction (Verified 08/19/17 08:39) Other Medications to take at Discharge Amiodarone HCl 200 mg PO DAILY 10/28/16 Carvedilol [Coreg (Beta Kaycee)] 12.5 mg PO BID 10/28/16 Levothyroxine [Synthroid] 88 mcg PO DAILY 10/28/16 Losartan Potassium 25 mg PO DAILY 10/28/16 Tamsulosin HCl [Flomax] 0.4 mg PO QHS 10/28/16 Sertraline HCl [Zoloft] 50 mg PO DAILY 07/21/17 Furosemide [Lasix] 20 mg PO DAILY #30 tab 12/04/17 Warfarin [Coumadin] 3 mg PO DAILY #30 tab 12/04/17 Aspirin E.C. [Ecotrin] 81 mg PO DAILY@0800 #30 tablet 03/18/18 Atorvastatin Calcium 40 mg PO QHS #30 tablet 03/18/18 Metformin(XR) [Glucophage Xr] 500 mg PO DAILY #30 tablet 03/18/18 Potassium Chloride [K-Dur] 40 meq PO BIDCM #60 tablet 03/18/18 Quetiapine Fumarate [Seroquel] 25 mg PO QHS #30 tablet 03/18/18 The following prescriptions were given: Aspirin E.C. [Ecotrin] 81 mg PO DAILY@0800 #30 tablet Atorvastatin Calcium 40 mg PO QHS #30 tablet Metformin(XR) [Glucophage Xr] 500 mg PO DAILY #30 tablet Quetiapine Fumarate [Seroquel] 25 mg PO QHS #30 tablet Potassium Chloride [K-Dur] 40 meq PO BIDCM #60 tablet Primary Care Physician: Donnie Marrero DO [Primary Care Provider] - Please follow up with your Primary Care Physician in: 1 Week Test Results: Test results from this visit will be discussed in further detail at your follow- up appointment, if applicable. Please Follow Up With: Patrick Sood MD When: 2-4 Weeks Proposed Discharge Date: 03/18/18
--- NOTE | 2018-03-18 12:03 | PCM.DC.SUM ---
<Maribell Evans - Last Filed: 03/18/18 12:14> Discharge Date and Diagnosis Date of Admission: 03/15/18 Date of Discharge: 03/18/18 - Primary Discharge Diagnosis 1. Acute right midbrain infarct, history of prior CVA 2. Acute kidney injury on chronic kidney disease stage III 3. Acute on chronic hypokalemia 4. Chronic gluteal decubitus ulcers, present on admission 5. Chronic atrial fibrillation on anticoagulation with Coumadin 6. New onset type 2 diabetes mellitus 7. Moderate to severe protein calorie malnutrition 8. Debility secondary to #1, recommended SNF-patient and family refused 9. CAD status post CABG 10. Chronic systolic CHF/ischemic cardiomyopathy 11. Peripheral arterial disease status post lower extremity stents 12. Hypertension 13. Hyperlipidemia 14. Hypothyroidism 15. Iron deficiency anemia 16. BPH 17. Depression - Secondary Discharge Diagnosis Chronic Problems Hearing deficit (Chronic) Hypertension (Chronic) Systolic congestive heart failure (Chronic) Aortic stenosis (Chronic) Pulmonary hypertension (Chronic) Ischemic cardiomyopathy (Chronic) Iron deficiency anemia (Chronic) BPH (benign prostatic hyperplasia) (Chronic) Splenomegaly (Chronic) Gallbladder sludge (Chronic) Fatty infiltration of liver (Chronic) Venous stasis ulcers of both lower extremities (Chronic) PAD (peripheral artery disease) (Chronic) Stage III chronic kidney disease (Chronic) Chronic atrial fibrillation (Chronic) Status post coronary artery bypass graft (Chronic) Decubitus ulcer of sacral area (Chronic) Hypothyroidism (Chronic) CVA (cerebral vascular accident) (Chronic) CAD (coronary artery disease) (Chronic) Hospital Course and Treatment Imaging Results: Diagnostic Data Head CTA 03/15/18 13:29 IMPRESSION: 1. Normal [place] without a demonstrated aneurysm or arterial thrombus. 2. Left ENGINEERING PROJECT MANAGER territory infarction with expected changes of the left ENGINEERING PROJECT MANAGER. Electronically Signed: Jhony Lizama MD at 14:19 EST , Service support , Neck CTA 03/15/18 13:29 IMPRESSION: 1. Normal [place] without a demonstrated aneurysm or arterial thrombus. 2. Left ENGINEERING PROJECT MANAGER territory infarction with expected changes of the left ENGINEERING PROJECT MANAGER. Electronically Signed: Jhony Lizama MD at 14:19 EST , Service support , Brain CT 03/15/18 13:33 IMPRESSION: 1. No acute intracranial hemorrhage or mass effect. 2. 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 N.B. : The above information has been verbally conveyed by Jhony Lizama MD to Alex Urbano on 03/15/2018 13:53:24 (ET). Electronically Signed: Jhony Lizama MD at 13:54 EST , Service support , Chest X-Ray 03/15/18 13:40 IMPRESSION: 1. No airspace consolidation or pleural effusion. 2. Hypoinflation. 3. Cardiomegaly. CABG. 4. Diffuse (likely colonic) ileus with similar visualized pattern since prior study. Electronically Signed: Jhony Lizama MD at 14:00 EST , Service support , Brain MRI 03/16/18 06:58 IMPRESSION: No acute intracranial abnormality. Chronic left ENGINEERING PROJECT MANAGER infarction. Electronically Signed: Jennie Sales MD at 10:06 EST Tel , Service support , Consultations 03/15/18 17:07 Consult: Onc/Wound/linderman operator Routine Comment: Dr. Sood- Neurology Operations: None Procedures: 2-D Echocardiogram Summary of Care Provided: The patient is a 72 year old M admitted 03/15/2018 due to aphasia, right-sided weakness, left eye vision changes. 1. Acute right midbrain infarct, hx of prior CVA (left occipital infarct)-brain CT showed no acute intracranial hemorrhage or mass effect. 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 Neck CTA with bilateral carotid artery stents without hemodynamically significant stenosis. Head CTA with left ENGINEERING PROJECT MANAGER territory infarct. MRI brain with right midbrain infarct per neurology. Echocardiogram shows an EF of 40%, stage III diastolic dysfunction, pulmonary artery systolic pressure 52 mmHg. Continue aspirin, statin, Coumadin. Initially failed swallow evaluation. Repeat speech therapy evaluation recommended mechanical soft food consistency with thin liquid. Patient strongly recommended SNF at discharge for further PT/OT/ST. Patient and family declined. Patient will go home with home health. 2. KE[place] on chronic kidney disease stage III-secondary to poor oral intake. Resolved. 3. Acute on chronic hypokalemia-replaced per protocol. History of recurrent hypokalemia. Home supplemental potassium increased to 40 mEq twice daily. 4. Chronic gluteal decubitus ulcers, present on admission-per wound RN, buttocks appears improved. Patient refusing repositioning and assessment of wounds at times. 5. Chronic atrial fibrillation on anticoagulation with Coumadin-continue amiodarone, Coumadin, carvedilol. 6. CAD status post CABG-continue Coumadin, statin, beta-kaycee. 7. Chronic systolic CHF/ischemic cardiomyopathy- Echo with EF 40% as noted above. 8. Peripheral arterial disease status post lower extremity stents-continue Coumadin, statin. 9. Hypertension-stable, continue home regimen. 10. Hyperlipidemia-continue statin. 11. Hypothyroidism-TSH 13.4. Free T4 1.5. Continue Synthroid regimen. Repeat TSH in 4-6 weeks by PCP. 12. Iron deficiency anemia-stable. 13. BPH-continue Flomax regimen. 14. Depression-continue sertraline regimen. 15. Debility- reports patient requiring significant care at home. Patient and family refusing SNF. 16. Moderate to severe protein calorie malnutrition 17. New-onset type 2 diabetes mellitus-Hemoglobin A1c 7.6%. Started on metformin r 500 mg daily. Further follow-up with primary care physician. General: Alert, Oriented x3, No apparent distress HEENT: Atraumatic, PERRLA, EOMI, Normocephalic Oral: Moist mucosa Neck: Supple, No JVD, Negative Carotid Bruits Lungs: Clear to auscultation, Diminished Cardiovascular: Atrial fibrillation, rate controlled Abdomen: Bowel Sounds Present, Soft, Non Tender, Distended Extremities: No clubbing, No cyanosis, No edema, Capillary Refill Less than 3 Seconds Skin: Generalized extensive skin dryness with flaking. Right great toe healing ulceration. Chronic gluteal decubitus ulcer x3. Musculoskeletal: No Tenderness to Palpation of Joints or Extremities Neurological: Cranial nerves II-XII grossly intact, Bilateral pinpoint pupils, right eye fixed, left eye nystagmus, severe left-sided weakness, dysarthria. Psych/Mental Status: Flat affect, agitated at times Patient seen and examined prior to discharge. Physical assessment as noted above. Patient is stable for discharge with follow up recommendations as noted above. This patient was seen by RICHELLE Lovelace under the supervision of Dr. Shell. - Physical Exam Vital Signs Temp Pulse Resp BP Pulse Ox 98.2 F 79 18 132/66 H 93 03/18/18 08:41 03/18/18 11:26 03/18/18 08:41 03/18/18 08:41 03/18/18 08:41 Oxygen Flow Rate (L/min) 3 Oxygen Delivery Method Room Air Weight: 176 lb 5.917 oz Body Mass Index (BMI) 22.0 Finger Stick Blood Glucose 105 Intake and Output for Last 24 Hours 03/16/18 03/17/18 03/18/18 23:59 23:59 23:59 Intake Total 3290 / 3290 2675 / 2675 480 / 480 Output Total 300 / 300 Balance 2990 / 2990 2675 / 2675 480 / 480 Laboratory Tests Past 24 Hrs 03/18/18 03/18/18 03/18/18 06:00 06:00 06:00 WBC 8.9 RBC 3.80 L Hgb 10.7 L Hct 33.4 L MCV 87.9 MCH 28.2 MCHC 32.0 RDW 15.4 H RDW Differential 49.6 H Plt Count 231 MPV 8.7 PT 32.3 H INR 3.1 Sodium 142 Potassium 3.2 L Chloride 109 H Carbon Dioxide 23.0 Anion Gap 10 BUN 13 Creatinine 1.01 Estim Creat Clear Calc 74.81 Est GFR (MDRD) Af Amer 93 Est GFR (MDRD) Non-Af 77 BUN/Creatinine Ratio 12.9 Glucose 116 H Calcium 8.3 L POC Glucose 03/18/18 03/18/18 03/17/18 10:56 06:49 23:35 POC Glucose 108 119 H 131 H 03/17/18 16:42 POC Glucose 119 H Discharge Diet: Low fat/ Low Cholesterol, Carb Control Diet Discharge Activity: Return to Normal Activity Call your doctor if you observe: Numbness or Tingling, Shortness of breath, Dizziness, Fainting spells, Chest pain Home Medications: Medications to take at Discharge Amiodarone HCl 200 mg PO DAILY 10/28/16 Carvedilol [Coreg (Beta Kaycee)] 12.5 mg PO BID 10/28/16 Levothyroxine [Synthroid] 88 mcg PO DAILY 10/28/16 Losartan Potassium 25 mg PO DAILY 10/28/16 Tamsulosin HCl [Flomax] 0.4 mg PO QHS 10/28/16 Sertraline HCl [Zoloft] 50 mg PO DAILY 07/21/17 Furosemide [Lasix] 20 mg PO DAILY #30 tab 12/04/17 Warfarin [Coumadin] 3 mg PO DAILY #30 tab 12/04/17 Aspirin E.C. [Ecotrin] 81 mg PO DAILY@0800 #30 tablet 03/18/18 Atorvastatin Calcium 40 mg PO QHS #30 tablet 03/18/18 Metformin(XR) [Glucophage Xr] 500 mg PO DAILY #30 tablet 03/18/18 Potassium Chloride [K-Dur] 40 meq PO BIDCM #60 tablet 03/18/18 Quetiapine Fumarate [Seroquel] 25 mg PO QHS #30 tablet 03/18/18 Following Prescrptions Were Given to Patient: Aspirin E.C. [Ecotrin] 81 mg PO DAILY@0800 #30 tablet Atorvastatin Calcium 40 mg PO QHS #30 tablet Metformin(XR) [Glucophage Xr] 500 mg PO DAILY #30 tablet Quetiapine Fumarate [Seroquel] 25 mg PO QHS #30 tablet Potassium Chloride [K-Dur] 40 meq PO BIDCM #60 tablet Primary Care Physician: Donnie Marrero DO [Primary Care Provider] - Please follow up with your Primary Care Physician in: 1 Week Please Follow Up With: Patrick Sood MD When: 2-4 Weeks Disposition: Home Minutes spent on discharge:: 35 Patient Condition:: Stable Medical Necessity - Tobacco Use Smoking Status: Former smoker Tobacco Use: Non-smoker Meaningful Use Info Meaningful Use Diagnoses (Choose all that apply): Ischemic CVA - CVA Therapy Assessed for PT,OT and/or ST?: Yes - Ischemic Stroke Antithrombotic order at d/c?: Yes Dx of Atrial fib/flutter?: Yes Anticoagulant at discharge?: Yes Statins at discharge?: Yes Primary Dx Acute Ischemic CVA?: Yes IV tPA ordered during stay?: No Reason IV t-PA not ordered: Medical Contraindication <Jaime Shell - Last Filed: 03/18/18 13:53> Discharge Date and Diagnosis - Secondary Discharge Diagnosis Chronic Problems Hearing deficit (Chronic) Hypertension (Chronic) Systolic congestive heart failure (Chronic) Aortic stenosis (Chronic) Pulmonary hypertension (Chronic) Ischemic cardiomyopathy (Chronic) Iron deficiency anemia (Chronic) BPH (benign prostatic hyperplasia) (Chronic) Splenomegaly (Chronic) Gallbladder sludge (Chronic) Fatty infiltration of liver (Chronic) Venous stasis ulcers of both lower extremities (Chronic) PAD (peripheral artery disease) (Chronic) Stage III chronic kidney disease (Chronic) Chronic atrial fibrillation (Chronic) Status post coronary artery bypass graft (Chronic) Decubitus ulcer of sacral area (Chronic) Hypothyroidism (Chronic) CVA (cerebral vascular accident) (Chronic) CAD (coronary artery disease) (Chronic) Hospital Course and Treatment Consultations 03/15/18 17:07 Consult: Onc/Wound/linderman operator Routine Comment: Summary of Care Provided: The patient is a 72 year old M [] - Physical Exam Vital Signs Temp Pulse Resp BP Pulse Ox 98.2 F 79 18 132/66 H 93 03/18/18 08:41 03/18/18 11:26 03/18/18 08:41 03/18/18 08:41 03/18/18 08:41 Oxygen Flow Rate (L/min) 3 Oxygen Delivery Method Room Air Weight: 176 lb 5.917 oz Body Mass Index (BMI) 22.0 Finger Stick Blood Glucose 105 Intake and Output for Last 24 Hours 03/16/18 03/17/18 03/18/18 23:59 23:59 23:59 Intake Total 3290 / 3290 2675 / 2675 480 / 480 Output Total 300 / 300 Balance 2990 / 2990 2675 / 2675 480 / 480 Laboratory Tests Past 24 Hrs 03/18/18 03/18/18 03/18/18 06:00 06:00 06:00 WBC 8.9 RBC 3.80 L Hgb 10.7 L Hct 33.4 L MCV 87.9 MCH 28.2 MCHC 32.0 RDW 15.4 H RDW Differential 49.6 H Plt Count 231 MPV 8.7 PT 32.3 H INR 3.1 Sodium 142 Potassium 3.2 L Chloride 109 H Carbon Dioxide 23.0 Anion Gap 10 BUN 13 Creatinine 1.01 Estim Creat Clear Calc 74.81 Est GFR (MDRD) Af Amer 93 Est GFR (MDRD) Non-Af 77 BUN/Creatinine Ratio 12.9 Glucose 116 H Calcium 8.3 L POC Glucose 03/18/18 03/18/18 03/17/18 10:56 06:49 23:35 POC Glucose 108 119 H 131 H 03/17/18 16:42 POC Glucose 119 H Code Visit Addendum: Dr. Shell I personally examined the patient and reviewed the chart. I agree with the above. 72-year-old male with a previous history of CVA who presented with an acute right midbrain infarct. He has a significant past medical history and unfortunately has had over 15 pound weight loss as well in the last 2-3 months. He does not eat while at home and it was discussed with the family that he will unlikely regain that weight and will probably lose more weight in the future. He did recover a significant portion of his dysfunction 1-2 days after his stroke. Initially he was n.p.o. because of significant dysphagia, however on the next day he was able to pass a speech swallow, and is able to eat. Multiple discussions were had with the family about sending him to a nursing facility for rehab, however they felt that he has a very difficult personality and it would be a struggle to keep him under control while there. They elected to take him home with home health. Inpatient E&M: [id number] Disch Hosp
--- NOTE | 2018-03-18 12:14 | DS.PCM_ITS ---
<Maribell Evans - Last Filed: 03/18/18 12:14> Discharge Date and Diagnosis Date of Admission: 03/15/18 Date of Discharge: 03/18/18 - Primary Discharge Diagnosis 1. Acute right midbrain infarct, history of prior CVA 2. Acute kidney injury on chronic kidney disease stage III 3. Acute on chronic hypokalemia 4. Chronic gluteal decubitus ulcers, present on admission 5. Chronic atrial fibrillation on anticoagulation with Coumadin 6. New onset type 2 diabetes mellitus 7. Moderate to severe protein calorie malnutrition 8. Debility secondary to #1, recommended SNF-patient and family refused 9. CAD status post CABG 10. Chronic systolic CHF/ischemic cardiomyopathy 11. Peripheral arterial disease status post lower extremity stents 12. Hypertension 13. Hyperlipidemia 14. Hypothyroidism 15. Iron deficiency anemia 16. BPH 17. Depression - Secondary Discharge Diagnosis Chronic Problems Hearing deficit (Chronic) Hypertension (Chronic) Systolic congestive heart failure (Chronic) Aortic stenosis (Chronic) Pulmonary hypertension (Chronic) Ischemic cardiomyopathy (Chronic) Iron deficiency anemia (Chronic) BPH (benign prostatic hyperplasia) (Chronic) Splenomegaly (Chronic) Gallbladder sludge (Chronic) Fatty infiltration of liver (Chronic) Venous stasis ulcers of both lower extremities (Chronic) PAD (peripheral artery disease) (Chronic) Stage III chronic kidney disease (Chronic) Chronic atrial fibrillation (Chronic) Status post coronary artery bypass graft (Chronic) Decubitus ulcer of sacral area (Chronic) Hypothyroidism (Chronic) CVA (cerebral vascular accident) (Chronic) CAD (coronary artery disease) (Chronic) Hospital Course and Treatment Imaging Results: Diagnostic Data Head CTA 03/15/18 13:29 IMPRESSION: 1. Normal lower [place] of [place] without a demonstrated aneurysm or arterial thrombus. 2. Left DRAWING KILN OPERATOR territory infarction with expected changes of the left DRAWING KILN OPERATOR. Electronically Signed: Jhony Lizama MD at 14:19 EST , Service support , Neck CTA 03/15/18 13:29 IMPRESSION: 1. Normal lower [place] of [place] without a demonstrated aneurysm or arterial thrombus. 2. Left DRAWING KILN OPERATOR territory infarction with expected changes of the left DRAWING KILN OPERATOR. Electronically Signed: Jhony Lizama MD at 14:19 EST , Service support , Brain CT 03/15/18 13:33 IMPRESSION: 1. No acute intracranial hemorrhage or mass effect. 2. 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 N.B. : The above information has been verbally conveyed by Jhony Lizama MD to Alex Urbano on 03/15/2018 13:53:24 (ET). Electronically Signed: Jhony Lizama MD at 13:54 EST , Service support , Chest X-Ray 03/15/18 13:40 IMPRESSION: 1. No airspace consolidation or pleural effusion. 2. Hypoinflation. 3. Cardiomegaly. CABG. 4. Diffuse (likely colonic) ileus with similar visualized pattern since prior study. Electronically Signed: Jhony Lizama MD at 14:00 EST , Service support , Brain MRI 03/16/18 06:58 IMPRESSION: No acute intracranial abnormality. Chronic left DRAWING KILN OPERATOR infarction. Electronically Signed: Jennie Sales MD at 10:06 EST Tel , Service support , Consultations 03/15/18 17:07 Consult: Onc/Wound/pot reliner Routine Comment: Dr. Sood- Neurology Operations: None Procedures: 2-D Echocardiogram Summary of Care Provided: The patient is a 72 year old M admitted 03/15/2018 due to aphasia, right-sided weakness, left eye vision changes. 1. Acute right midbrain infarct, hx of prior CVA (left occipital infarct)-brain CT showed no acute intracranial hemorrhage or mass effect. 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 Neck CTA with bilateral carotid artery stents without hemodynamically significant stenosis. Head CTA with left DRAWING KILN OPERATOR territory infarct. MRI brain with right midbrain infarct per neurology. Echocardiogram shows an EF of 40%, stage III diastolic dysfunction, pulmonary artery systolic pressure 52 mmHg. Continue aspirin, statin, Coumadin. Initially failed swallow evaluation. Repeat speech therapy evaluation recommended mechanical soft food consistency with thin liquid. Patient strongly recommended SNF at discharge for further PT/OT/ST. Patient and family declined. Patient will go home with home health. 2. KEGAAN on chronic kidney disease stage III-secondary to poor oral intake. Resolved. 3. Acute on chronic hypokalemia-replaced per protocol. History of recurrent hypokalemia. Home supplemental potassium increased to 40 mEq twice daily. 4. Chronic gluteal decubitus ulcers, present on admission-per wound RN, buttocks appears improved. Patient refusing repositioning and assessment of wounds at times. 5. Chronic atrial fibrillation on anticoagulation with Coumadin-continue amiodarone, Coumadin, carvedilol. 6. CAD status post CABG-continue Coumadin, statin, beta-kaycee. 7. Chronic systolic CHF/ischemic cardiomyopathy- Echo with EF 40% as noted above. 8. Peripheral arterial disease status post lower extremity stents-continue Coumadin, statin. 9. Hypertension-stable, continue home regimen. 10. Hyperlipidemia-continue statin. 11. Hypothyroidism-TSH 13.4. Free T4 1.5. Continue Synthroid regimen. Repeat TSH in 4-6 weeks by PCP. 12. Iron deficiency anemia-stable. 13. BPH-continue Flomax regimen. 14. Depression-continue sertraline regimen. 15. Debility- reports patient requiring significant care at home. Patient and family refusing SNF. 16. Moderate to severe protein calorie malnutrition 17. New-onset type 2 diabetes mellitus-Hemoglobin A1c 7.6%. Started on metformin r 500 mg daily. Further follow-up with primary care physician. General: Alert, Oriented x3, No apparent distress HEENT: Atraumatic, PERRLA, EOMI, Normocephalic Oral: Moist mucosa Neck: Supple, No JVD, Negative Carotid Bruits Lungs: Clear to auscultation, Diminished Cardiovascular: Atrial fibrillation, rate controlled Abdomen: Bowel Sounds Present, Soft, Non Tender, Distended Extremities: No clubbing, No cyanosis, No edema, Capillary Refill Less than 3 Seconds Skin: Generalized extensive skin dryness with flaking. Right great toe healing ulceration. Chronic gluteal decubitus ulcer x3. Musculoskeletal: No Tenderness to Palpation of Joints or Extremities Neurological: Cranial nerves II-XII grossly intact, Bilateral pinpoint pupils, right eye fixed, left eye nystagmus, severe left-sided weakness, dysarthria. Psych/Mental Status: Flat affect, agitated at times Patient seen and examined prior to discharge. Physical assessment as noted above. Patient is stable for discharge with follow up recommendations as noted above. This patient was seen by RICHELLE Lovelace under the supervision of Dr. Shell. - Physical Exam Vital Signs Temp Pulse Resp BP Pulse Ox 98.2 F 79 18 132/66 H 93 03/18/18 08:41 03/18/18 11:26 03/18/18 08:41 03/18/18 08:41 03/18/18 08:41 Oxygen Flow Rate (L/min) 3 Oxygen Delivery Method Room Air Weight: 176 lb 5.917 oz Body Mass Index (BMI) 22.0 Finger Stick Blood Glucose 105 Intake and Output for Last 24 Hours 03/16/18 03/17/18 03/18/18 23:59 23:59 23:59 Intake Total 3290 / 3290 2675 / 2675 480 / 480 Output Total 300 / 300 Balance 2990 / 2990 2675 / 2675 480 / 480 Laboratory Tests Past 24 Hrs 03/18/18 03/18/18 03/18/18 06:00 06:00 06:00 WBC 8.9 RBC 3.80 L Hgb 10.7 L Hct 33.4 L MCV 87.9 MCH 28.2 MCHC 32.0 RDW 15.4 H RDW Differential 49.6 H Plt Count 231 MPV 8.7 PT 32.3 H INR 3.1 Sodium 142 Potassium 3.2 L Chloride 109 H Carbon Dioxide 23.0 Anion Gap 10 BUN 13 Creatinine 1.01 Estim Creat Clear Calc 74.81 Est GFR (MDRD) Af Amer 93 Est GFR (MDRD) Non-Af 77 BUN/Creatinine Ratio 12.9 Glucose 116 H Calcium 8.3 L POC Glucose 03/18/18 03/18/18 03/17/18 10:56 06:49 23:35 POC Glucose 108 119 H 131 H 03/17/18 16:42 POC Glucose 119 H Discharge Diet: Low fat/ Low Cholesterol, Carb Control Diet Discharge Activity: Return to Normal Activity Call your doctor if you observe: Numbness or Tingling, Shortness of breath, Dizziness, Fainting spells, Chest pain Home Medications: Medications to take at Discharge Amiodarone HCl 200 mg PO DAILY 10/28/16 Carvedilol [Coreg (Beta Kaycee)] 12.5 mg PO BID 10/28/16 Levothyroxine [Synthroid] 88 mcg PO DAILY 10/28/16 Losartan Potassium 25 mg PO DAILY 10/28/16 Tamsulosin HCl [Flomax] 0.4 mg PO QHS 10/28/16 Sertraline HCl [Zoloft] 50 mg PO DAILY 07/21/17 Furosemide [Lasix] 20 mg PO DAILY #30 tab 12/04/17 Warfarin [Coumadin] 3 mg PO DAILY #30 tab 12/04/17 Aspirin E.C. [Ecotrin] 81 mg PO DAILY@0800 #30 tablet 03/18/18 Atorvastatin Calcium 40 mg PO QHS #30 tablet 03/18/18 Metformin(XR) [Glucophage Xr] 500 mg PO DAILY #30 tablet 03/18/18 Potassium Chloride [K-Dur] 40 meq PO BIDCM #60 tablet 03/18/18 Quetiapine Fumarate [Seroquel] 25 mg PO QHS #30 tablet 03/18/18 Following Prescrptions Were Given to Patient: Aspirin E.C. [Ecotrin] 81 mg PO DAILY@0800 #30 tablet Atorvastatin Calcium 40 mg PO QHS #30 tablet Metformin(XR) [Glucophage Xr] 500 mg PO DAILY #30 tablet Quetiapine Fumarate [Seroquel] 25 mg PO QHS #30 tablet Potassium Chloride [K-Dur] 40 meq PO BIDCM #60 tablet Primary Care Physician: Donnie Marrero DO [Primary Care Provider] - Please follow up with your Primary Care Physician in: 1 Week Please Follow Up With: Patrick Sood MD When: 2-4 Weeks Disposition: Home Minutes spent on discharge:: 35 Patient Condition:: Stable Medical Necessity - Tobacco Use Smoking Status: Former smoker Tobacco Use: Non-smoker Meaningful Use Info Meaningful Use Diagnoses (Choose all that apply): Ischemic CVA - CVA Therapy Assessed for PT,OT and/or ST?: Yes - Ischemic Stroke Antithrombotic order at d/c?: Yes Dx of Atrial fib/flutter?: Yes Anticoagulant at discharge?: Yes Statins at discharge?: Yes Primary Dx Acute Ischemic CVA?: Yes IV tPA ordered during stay?: No Reason IV t-PA not ordered: Medical Contraindication <Jaime Shell - Last Filed: 03/18/18 13:53> Discharge Date and Diagnosis - Secondary Discharge Diagnosis Chronic Problems Hearing deficit (Chronic) Hypertension (Chronic) Systolic congestive heart failure (Chronic) Aortic stenosis (Chronic) Pulmonary hypertension (Chronic) Ischemic cardiomyopathy (Chronic) Iron deficiency anemia (Chronic) BPH (benign prostatic hyperplasia) (Chronic) Splenomegaly (Chronic) Gallbladder sludge (Chronic) Fatty infiltration of liver (Chronic) Venous stasis ulcers of both lower extremities (Chronic) PAD (peripheral artery disease) (Chronic) Stage III chronic kidney disease (Chronic) Chronic atrial fibrillation (Chronic) Status post coronary artery bypass graft (Chronic) Decubitus ulcer of sacral area (Chronic) Hypothyroidism (Chronic) CVA (cerebral vascular accident) (Chronic) CAD (coronary artery disease) (Chronic) Hospital Course and Treatment Consultations 03/15/18 17:07 Consult: Onc/Wound/pot reliner Routine Comment: Summary of Care Provided: The patient is a 72 year old M [] - Physical Exam Vital Signs Temp Pulse Resp BP Pulse Ox 98.2 F 79 18 132/66 H 93 03/18/18 08:41 03/18/18 11:26 03/18/18 08:41 03/18/18 08:41 03/18/18 08:41 Oxygen Flow Rate (L/min) 3 Oxygen Delivery Method Room Air Weight: 176 lb 5.917 oz Body Mass Index (BMI) 22.0 Finger Stick Blood Glucose 105 Intake and Output for Last 24 Hours 03/16/18 03/17/18 03/18/18 23:59 23:59 23:59 Intake Total 3290 / 3290 2675 / 2675 480 / 480 Output Total 300 / 300 Balance 2990 / 2990 2675 / 2675 480 / 480 Laboratory Tests Past 24 Hrs 03/18/18 03/18/18 03/18/18 06:00 06:00 06:00 WBC 8.9 RBC 3.80 L Hgb 10.7 L Hct 33.4 L MCV 87.9 MCH 28.2 MCHC 32.0 RDW 15.4 H RDW Differential 49.6 H Plt Count 231 MPV 8.7 PT 32.3 H INR 3.1 Sodium 142 Potassium 3.2 L Chloride 109 H Carbon Dioxide 23.0 Anion Gap 10 BUN 13 Creatinine 1.01 Estim Creat Clear Calc 74.81 Est GFR (MDRD) Af Amer 93 Est GFR (MDRD) Non-Af 77 BUN/Creatinine Ratio 12.9 Glucose 116 H Calcium 8.3 L POC Glucose 03/18/18 03/18/18 03/17/18 10:56 06:49 23:35 POC Glucose 108 119 H 131 H 03/17/18 16:42 POC Glucose 119 H Code Visit Addendum: Dr. Shell I personally examined the patient and reviewed the chart. I agree with the above. 72-year-old male with a previous history of CVA who presented with an acute right midbrain infarct. He has a significant past medical history and unfortunately has had over 15 pound weight loss as well in the last 2-3 months. He does not eat while at home and it was discussed with the family that he will unlikely regain that weight and will probably lose more weight in the future. He did recover a significant portion of his dysfunction 1-2 days after his stroke. Initially he was n.p.o. because of significant dysphagia, however on the next day he was able to pass a speech swallow, and is able to eat. Multiple discussions were had with the family about sending him to a nursing facility for rehab, however they felt that he has a very difficult personality and it would be a struggle to keep him under control while there. They elected to take him home with home health. Inpatient E&M: [id number] Disch Hosp
--- NOTE | 2018-03-18 13:12 | CASEMGMT ---
Addendum entered by Corie Aparicio 03/18/18 14:24: This ANGELITA GALVAN received call back from Anna Marie at [facility] and she states that they are able to take pt at this time for all disciplines as well as speech therapy. Maribell GOLDSTEIN aware and pt is awaiting dispo. Elaine GOLDSTEIN CM Original Note: Pt's and daughter have decided to take pt home w/ [facility] at this time. Per Saloni, daughter, they would like [facility] as they have had in the past. Message left with Anna Marie at [facility] with a referral for pt for RN, PT/OT, Aide and SW at this time. Elaine GOLDSTEIN CM
[2018-03-18 16:10] LABS: Bedside Glucose 128 mg/dL (70-110)
--- NOTE | 2018-03-19 15:02 | CASEMGMT ---
RN MANDY DC Phone Call DC Date: 03/18/17 DC Disposition: Home with [facility]: 02/10 Intro role of CM to patient's daughter Saloni. She is with pt and states he is doing well. No questions for RN MANDY and home health nurse was out in the am to see pt. Christina RUIZ RN ACM
== END 2018-04-03 17:00 | disposition home health service (06) | DRG 981 ==
LOC: ED 13:28 → PCU 16:09
PROVIDERS: Hospitalist; Nurse Practitioner Family; Admitting Provider Family Medicine; Emergency Provider Emergency Medicine; Family Provider Student in an Organized Health Care Education/Training Program; PCP Student in an Organized Health Care Education/Training Program; Referring Provider Family Medicine; Visit Provider Family Medicine
DX: I63.9 Cerebral infarction, unspecified (principal); J69.0 Pneumonitis due to inhalation of food and vomit; I50.22 Chronic systolic (congestive) heart failure; I13.0 Hypertensive heart and chronic kidney disease with heart failure and stage 1 through stage 4 chronic kidney disease, or unspecified chronic kidney disease; N17.9 Acute kidney failure, unspecified; G81.04 Flaccid hemiplegia affecting left nondominant side; E44.0 Moderate protein-calorie malnutrition; N39.0 Urinary tract infection, site not specified; I48.2 Chronic atrial fibrillation; E87.6 Hypokalemia; I25.5 Ischemic cardiomyopathy; R47.1 Dysarthria and anarthria; L89.322 Pressure ulcer of left buttock, stage 2; E11.22 Type 2 diabetes mellitus with diabetic chronic kidney disease; I69.398 Other sequelae of cerebral infarction; K59.8 Other specified functional intestinal disorders; H55.00 Unspecified nystagmus; R09.02 Hypoxemia; I25.10 Atherosclerotic heart disease of native coronary artery without angina pectoris; E03.9 Hypothyroidism, unspecified; D50.9 Iron deficiency anemia, unspecified; F32.9 Major depressive disorder, single episode, unspecified; E78.5 Hyperlipidemia, unspecified; H53.8 Other visual disturbances; N18.3 Chronic kidney disease, stage 3 (moderate); R53.81 Other malaise; N40.0 Benign prostatic hyperplasia without lower urinary tract symptoms; I35.0 Nonrheumatic aortic (valve) stenosis; L89.319 Pressure ulcer of right buttock, unspecified stage; I87.2 Venous insufficiency (chronic) (peripheral); I27.20 Pulmonary hypertension, unspecified; I73.9 Peripheral vascular disease, unspecified; Z95.1 Presence of aortocoronary bypass graft; Z79.899 Other long term (current) drug therapy; Z95.820 Peripheral vascular angioplasty status with implants and grafts; Z79.01 Long term (current) use of anticoagulants; Z87.891 Personal history of nicotine dependence; Z68.22 Body mass index [BMI] 22.0-22.9, adult; Z79.84 Long term (current) use of oral hypoglycemic drugs
CPT/HCPCS: 36415; 51702; 70450; 70496; 70498; 70551; 71045; 74018; 74019; 74176; 80048; 80053; 80061; 81001; 82962; 83036; 83605; 83735; 84100; 84132; 84439; 84443; 84484; 85025; 85027; 85610; 85730; 87040; 87077; 87086; 87088; 87186; 92526; 93005; 93306; 94640; 94667; 94668; 97162; 97165; 97166; 97530; 97535; 97802; 99285; J7030; J7040; Q9957; Q9967; A4216; J0295; J1940; J3490

== ENCOUNTER 2018-03-20 14:30 | Inpatient (IN) | payer MEDICARE, SELFPAY ==
[2018-03-18 16:59] VITALS: BMI 22.0
[2018-03-20] VITALS (9 sets, daily range): BP systolic 105–152; BP diastolic 73–88; PULSE 84–98; RESP 18–28; TEMP 36.6–36.9; O2SAT 88–98; BMI 25.4; BMI 25.5; BMI 24.1
--- NOTE | 2018-03-20 14:50 | RAD_ITS ---
STUDY: X-RAY CHEST REASON FOR EXAM: Male, 72 years old. Vomiting TECHNIQUE: Single AP portable view of the chest. COMPARISON: 03/15/2018 FINDINGS: Stable elevation of right hemidiaphragm Lungs are underexpanded with chronic interstitial changes but no superimposed acute process noted. There is no demonstrated pleural abnormality. Sternal cerclage wires and vascular clips are present from a prior sternotomy and coronary artery bypass graft procedure (CABG). Normal mediastinum and alex. Normal visualized pulmonary arteries. There is atherosclerotic calcification of the aortic arch with tortuosity. There are diffuse degenerative changes of the visualized thoracic spine. There is degenerative osteoarthritis of the bilateral shoulders. Bowel gas pattern below the diaphragm suggests an obstructive process RAD/Chest 1 View (Portable) IMPRESSION: Underexpanded lungs, chronic interstitial changes, no superimposed acute process Multiple dilated air-filled bowel loops suggestive of obstructive process with little significant change since the previous study Electronically Signed: Yassine Hobson MD at 15:51 EST , Service support ,
--- NOTE | 2018-03-20 14:50 | EKG12_ITS ---
Test Reason : GEN ILLNESS Blood Pressure : / mmHG Vent. Rate : 089 BPM Atrial Rate : 092 BPM P-R Int : 000 ms QRS Dur : 116 ms QT Int : 430 ms P-R-T Axes : 000 -57 061 degrees QTc Int : 523 ms Atrial fibrillation Left anterior fascicular block Inferior-posterior infarct , possibly acute Anterior infarct , age undetermined Prolonged QT NO STEMI Consider right ventricular involvement in acute inferior infarct Abnormal ECG Confirmed by ALISA ELMORE, LAVERNE ([id number]), design editor MICHELE DELACRUZ ([id number]) on 03/24/2018 5:04:47 PM Referred By: ALICIA Confirmed By:LAVERNE CUELLAR MD
[2018-03-20 15:02] LABS: Absolute Lymphocyte Count 0.61 X10^3/ul (0.83-4.51); Absolute Neutrophil Count 11.9 X10^3/uL (2.0-7.7); Basophil# 0.02 X10^3/uL; Basophil% 0.1 % (0-1); Eosinophil# 0.05 X10^3/uL; Eosinophils% 0.4 % (0-5); Hematocrit 39.5 % (40-54); Hemoglobin 12.4 g/dl (13.0-16.5); Lymphocyte # 0.61 X10^3/ul (4.0); Lymphocyte % 4.3 % (19-41); Mean Corp Hgb Conc 31.4 g/gl (32-36); Mean Corpuscular Hgb 27.8 pg (27.0-32.0); Mean Corpuscular Volume 88.6 fL (80-94); Mean Platelet Vol. 8.8 fl (6.2-12.0); Monocyte# 1.39 X10^3/uL; Monocyte% 9.9 % (0-10); Neutrophil # 11.88 X10^3/uL (2.7-7.7); Neutrophil % 84.7 % (47-70); POSITIVE COUNT NO; POSITIVE DIFFERENTIAL NO; POSITIVE MORPHOLOGY NO; Platelet Count 275 K/mm3 (150-450); RBC Distribution Width CV 15.5 % (11.6-14.6); Red Blood Count 4.46 M/mm3 (4.6-6.2)
[2018-03-20 15:06] LABS: International Normalized Ratio 2.6; Prothrombin Time (Protime)PT. 27.6 SECONDS (11.7-14.9)
[2018-03-20 15:07] LABS: Partial Thromboplast Time 37.6 Seconds (24.1-36.2)
[2018-03-20 15:14] LABS: ALB/GLOB Ratio 0.6 RATIO (0.9-2.4); AST(SGOT) 13 U/L (15-37); Alanine Aminotransfer ALT/SGPT 15 U/L (16-61); Albumin, Serum 2.9 g/dL (3.2-5.0); Alkaline Phosphatase 105 U/L (45-117); Anion Gap 11 (5-15); BUN 15 mg/dL (7-18); BUN/Creat Ratio 12.8 RATIO (10-20); Calcium,Total 8.8 mg/dL (8.5-10.1); Chloride 101 mmol/L (98-107); Creatinine, Serum 1.17 mg/dL (0.70-1.30); EST Glomerular Filtration Rate 65 mL/min (>60); Est Glom Filt Rate - Afr Amer 79 mL/min (>60); Estimated Creatinine Clearance 66.35 ml/min; Globulin 5.2 g/dL (2.2-4.2); Glucose 148 mg/dL (74-106); Protein, Total 8.1 g/dL (6.4-8.2); Sodium Level 137 mmol/L (136-145)
[2018-03-20 15:30] LABS: Lactic Acid 1.6 mmol/L (0.4-2.0)
[2018-03-20 16:34] LABS: Color, Urine Yellow (Yellow); Glucose, Dipstick Normal (Normal); Ketone-Dipstick Negative (Negative); Leukocyte Esterase-Dipstick 500 /ul (Negative); Mucous, Urine 0 SEEN /hpf (<or=2+); Nitrite-Dipstick Negative (Negative); Occult Blood-Urine 25 /ul (Negative); Protein-Dipstick 15 mg/dl (Negative); Red Blood Cells-Urine 0 SEEN /hpf (0-5); Specific Gravity, Urine 1.005 (1.002-1.030); Squamous Epithelial Cells - UA 0 SEEN /hpf (0-5); Urine Bilirubin Dipstick Negative (Negative); Urine Clarity Sl. Cloudy (Clear); Urine Urobilinogen Normal (Normal)
--- NOTE | 2018-03-20 16:37 | RAD_ITS ---
STUDY: X-RAY - ABDOMEN/PELVIS REASON FOR EXAM: Male, 72 years old. Distention TECHNIQUE: AP supine and upright views of the abdomen and pelvis. 4 views. COMPARISON: November 30, 2017 abdomen study FINDINGS: There is partial visualization of sternotomy wires in the chest. Multiple distended loops of large bowel present. This fills the abdomen and pelvis. The cecum could measure up to 21 cm. Liver spanning kidneys are mostly obscured. There is a left hip arthroplasty. RAD/Abdomen Single View IMPRESSION: Severely distended gas-filled loops of bowel for which a distal obstruction cannot be excluded. Consider Jackeline's. Given the amount of distention of the bowel and gas free air is not excluded or excluded. Comment consideration for follow-up CT scan of the abdomen and pelvis when appropriate. Electronically Signed: Breana Anderson MD at 17:55 EST Tel , Service support ,
[2018-03-20 16:52] LABS: White Blood Cells 25-50 SEEN /hpf (0-5)
[2018-03-20 16:53] LABS: Bacteria 1+ /hpf (None Seen)
--- NOTE | 2018-03-20 17:08 | ED.DCSUM_ITS ---
- ER Visit Summary Date of Service: 03/20/18 Chief Complaint: Hypoxia History of Present Illness: The patient is a 72 M recently discharged home from the hospital, he was admitted for stroke apparently aspirated at home, is brought in by paramedics. He was found to be hypoxic. Patient had left-sided symptoms, he also has chronic abdominal distention, he had been seen by surgery. Physical Examination: Patient is chronically ill appearing he does not appear toxic.. Slightly dry mucous membranes, no obvious facial deformity No C-spine tenderness supple neck. Regular rate and rhythm without any obvious murmurs Course lungs bilaterally with some end expiratory wheezing, he is tachypneic. Abdomen abdomen has bowel sounds, but it is distended. Moves all extremities without any difficulty or pain. Skin does not show any obvious rashes or lesions, no trauma. Alert oriented ?3 with no gross focal deficit Emergency Department Course and Treatment: Patient has quite a bit of abdominal wall distention, this is similar to prior exam, he was seen by surgery in the hospital. I do not appreciate a pneumonia on the x-ray, there is hypoinflation, because of the history of present illness I started the patient on Unasyn I do believe he has aspiration pneumonia, he does have some leukocytosis. I will admit him to the hospitalist for hypoxia. Disposition: Admit to the hospital in guarded condition Impression: Aspiration pneumonia Chronic GI distention This note was generated with [employer] dictation software. It may contain incorrect words, spelling, and punctuation that were not noted in review of the chart prior to signing ED Disposition - Plan for ED Patient: Chief Complaint: Shortness of Breath Referrals: Donnie Marrero DO [Primary Care Provider] -
--- NOTE | 2018-03-20 17:47 | PCM.HP.STD ---
Problem List (1) Aspiration pneumonitis Status: Acute (2) Hearing deficit Status: Chronic (3) Hypertension Status: Chronic (4) Systolic congestive heart failure Status: Chronic (5) Ischemic cardiomyopathy Status: Chronic (6) Iron deficiency anemia Status: Chronic (7) Stage III chronic kidney disease Status: Chronic (8) Chronic atrial fibrillation Status: Chronic (9) Status post coronary artery bypass graft Status: Chronic (10) Hypothyroidism Status: Chronic (11) CVA (cerebral vascular accident) Status: Chronic (12) CAD (coronary artery disease) Status: Chronic (13) Abdominal distension (gaseous) Status: Acute History of Present Illness Date of Admission: 03/20/18 Chief Complaint: Aspiration The patient is a 72 year old M with PMH as below who was recently admitted to this hospital with a right midbrain stroke. He was discharged home because family did not feel that he would tolerate a residential given how belligerent he can be to staff, so he went home. They state that he was doing well but he had not had a bowel movement little bit over a week. He had been eating and was not choking with his meals, especially since he had passed a dysphasia screen and swallowing evaluation by speech therapy 4 days earlier. This afternoon he had a large volume emesis and then began coughing and was slightly hypoxic to room air at 88% in the ER. He is afebrile and has a leukocytosis as well as a UA that is indicating a possible UTI. A urine culture was sent and he was placed on oxygen. He was started on Unasyn for antibiotic prophylaxis for this aspiration pneumonitis. Chest x-ray is not remarkable from a pulmonary standpoint, however it does show significantly dilated loops of small bowel and colon. Past Medical History Past Medical History (Chronic Problems): Chronic Problems Hearing deficit (Chronic) Hypertension (Chronic) Systolic congestive heart failure (Chronic) Aortic stenosis (Chronic) Pulmonary hypertension (Chronic) Ischemic cardiomyopathy (Chronic) Iron deficiency anemia (Chronic) BPH (benign prostatic hyperplasia) (Chronic) Splenomegaly (Chronic) Gallbladder sludge (Chronic) Fatty infiltration of liver (Chronic) Venous stasis ulcers of both lower extremities (Chronic) PAD (peripheral artery disease) (Chronic) Stage III chronic kidney disease (Chronic) Chronic atrial fibrillation (Chronic) Status post coronary artery bypass graft (Chronic) Decubitus ulcer of sacral area (Chronic) Hypothyroidism (Chronic) CVA (cerebral vascular accident) (Chronic) CAD (coronary artery disease) (Chronic) Allergies latex Allergy (Verified 03/20/18 14:39) Rash LEEANN Inhibitors Adverse Reaction (Verified 03/20/18 14:39) Other Home Medications: Ambulatory Orders Medication Instructions Recorded Carvedilol [Coreg (Beta Kaycee)] 12.5 mg PO BID 10/28/16 Levothyroxine [Synthroid] 88 mcg PO DAILY 10/28/16 Tamsulosin HCl [Flomax] 0.4 mg PO QHS 10/28/16 Sertraline HCl [Zoloft] 50 mg PO DAILY 07/21/17 Furosemide [Lasix] 20 mg PO DAILY #30 tab 12/04/17 Potassium Chloride [K-Dur] 40 meq PO BIDCM #60 tablet 03/18/18 Amiodarone HCl 200 mg PO DAILY 03/20/18 Aspirin E.C. [Ecotrin] 81 mg PO DAILY@0800 03/20/18 Atorvastatin Calcium 40 mg PO QHS 03/20/18 Losartan Potassium 25 mg PO DAILY 03/20/18 Metformin(XR) [Glucophage Xr] 500 mg PO DAILY 03/20/18 Potassium Chloride 40 meq PO BID 03/20/18 Quetiapine Fumarate [Seroquel] 25 mg PO QHS 03/20/18 Warfarin [Coumadin] 3 mg PO DINNER 03/20/18 Surgical History: coronary bypass surgery, total hip arthroplasty - Left; bilateral carotid endarterectomy, - - Bilateral carotid endarterectomy, bilateral lower extremity stents secondary to peripheral arterial disease Psychiatric History: Depression Smoking Status: Unknown if ever smoked - *Family History Maternal History Items: - - Patient's mother at age of 75 with a history of cerebrovascular accident. Paternal History Items: - - Patient's father at the age of 70 from a myocardial infarction. Review of Systems Constitutional: Reports: Weakness. Denies: Chills, Fever HEENT: Denies: Head Aches, Sinus Congestion, Sinus Drainage Cardiovascular: Denies: Chest Pain, Palpitations Respiratory: Reports: Shortness of Breath. Denies: Cough, Shortness of breath at rest, Sputum production Gastrointestinal: Reports: Constipation, Vomiting. Denies: Abdominal Pain, Nausea Genitourinary: Denies: Dysuria Musculoskeletal: Denies: Joint Pain, Joint Tenderness Skin: Denies: Rash, Wounds Neurological: Denies: Numbness, Tingling, Focal weakness Psychiatric: Denies: Anxiety, Depression Hematologic/ Lymphatic: Denies: Easy Bruising, Easy Bleeding VTE Information - Inpt Only VTE Present on Admission: No Patient Problems: Active and Suspected Problems Aspiration pneumonitis (Acute) Abdominal distension (gaseous) (Acute) - Physical Exam General: Alert, Cooperative, No apparent distress HEENT: Atraumatic, PERRLA, EOMI, Normocephalic Oral: Dry Mucosa Neck: Supple, No JVD, Trachea Midline Lungs: Clear to auscultation, Normal air movement, No rhonchi, No wheeze, No rales, Diminished Cardiovascular: Regular rate, Regular Rhythm, Normal S1, Normal S2, No murmurs, No rub noted, No Gallop Abdomen: Soft, Non Tender, No Hepato-splenomegaly, Distended Extremities: No edema, Capillary Refill Less than 3 Seconds Skin: No rashes, No breakdown Neurological: Neuro grossly intact - Stable left-sided deficits from previous CVA, Sensory exam intact to light touch and pain Psych/Mental Status: Normal Affect, Appropriate Vital Signs Temp Pulse Resp BP Pulse Ox 98.4 F 90 25 H 152/79 H 94 03/20/18 15:29 03/20/18 17:46 03/20/18 17:46 03/20/18 17:46 03/20/18 17:46 Oxygen Flow Rate (L/min) 2 Oxygen Delivery Method Room Air Weight: 198 lb 6.656 oz Body Mass Index (BMI) 25.4 Finger Stick Blood Glucose 105 Laboratory Tests Past 24 Hrs 03/20/18 03/20/18 03/20/18 14:45 14:45 14:45 WBC 14.0 H RBC 4.46 L Hgb 12.4 L Hct 39.5 L MCV 88.6 MCH 27.8 MCHC 31.4 L RDW 15.5 H RDW Differential 49.0 H Plt Count 275 MPV 8.8 Immature Gran % (Auto) 0.600 Neut % (Auto) 84.7 H Lymph % (Auto) 4.3 L [place] % (Auto) 9.9 Eos % (Auto) 0.4 Baso % (Auto) 0.1 Absolute Neuts (auto) 11.9 H Absolute Lymphs (auto) 0.61 L Total Counted Not Reportable PT 27.6 H INR 2.6 APTT 37.6 H Sodium 137 Potassium 4.0 Chloride 101 Carbon Dioxide 25.0 Anion Gap 11 BUN 15 Creatinine 1.17 Estim Creat Clear Calc 66.35 Est GFR (MDRD) Af Amer 79 Est GFR (MDRD) Non-Af 65 BUN/Creatinine Ratio 12.8 Glucose 148 H Lactic Acid Calcium 8.8 Total Bilirubin 1.00 AST 13 L ALT 15 L Alkaline Phosphatase 105 Total Protein 8.1 Albumin 2.9 L Globulin 5.2 H Albumin/Globulin Ratio 0.6 L Urine Color Urine Clarity Urine pH Ur Specific [place] Urine Protein Urine Glucose (UA) Urine Ketones Urine Occult Blood Urine Nitrite Urine Bilirubin Urine Urobilinogen Ur Leukocyte Esterase Urine RBC Urine WBC Ur Squamous Epith Cells Urine Bacteria Urine Mucus 03/20/18 03/20/18 14:45 16:10 WBC RBC Hgb Hct MCV MCH MCHC RDW RDW Differential Plt Count MPV Immature Gran % (Auto) Neut % (Auto) Lymph % (Auto) [place] % (Auto) Eos % (Auto) Baso % (Auto) Absolute Neuts (auto) Absolute Lymphs (auto) Total Counted PT INR APTT Sodium Potassium Chloride Carbon Dioxide Anion Gap BUN Creatinine Estim Creat Clear Calc Est GFR (MDRD) Af Amer Est GFR (MDRD) Non-Af BUN/Creatinine Ratio Glucose Lactic Acid 1.6 Calcium Total Bilirubin AST ALT Alkaline Phosphatase Total Protein Albumin Globulin Albumin/Globulin Ratio Urine Color Yellow Urine Clarity Sl. Cloudy Urine pH 7.0 Ur Specific [place] 1.005 Urine Protein 15 H Urine Glucose (UA) Normal Urine Ketones Negative Urine Occult Blood 25 H Urine Nitrite Negative Urine Bilirubin Negative Urine Urobilinogen Normal Ur Leukocyte Esterase 500 H Urine RBC 0 SEEN Urine WBC 25-50 SEEN Ur Squamous Epith Cells 0 SEEN Urine Bacteria 1+ Urine Mucus 0 SEEN Assessment/Plan All Active Problems Aspiration pneumonitis (Acute) Abdominal distension (gaseous) (Acute) Bilateral leg ulcer (Resolved) GI bleeding (Resolved) 1. Aspiration pneumonitis/abdominal distention due to constipation -Discussed with the family he has been eating well without choking. -Unlikely to be dysphasia related though we will have speech therapy do a swallowing eval -We will continue with IV Unasyn and IV fluids at this time -N.p.o. except for medications -We will provide Colace and a suppository as well as MiraLAX to help him have a bowel movement -Continue with oxygen therapy 2. Chronic A. fib/history of CVA/chronic systolic CHF/CAD status post CABG with ischemic cardiomyopathy/hyperlipidemia/hypertension -We will continue his Coumadin in the setting of his previous stroke as well as his aspirin -Continue with Lipitor, Coreg, amiodarone and losartan -Hold Lasix since he is receiving fluids given to his poor intake and constipation -INR on admission is 2.6, repeat daily 3. Anxiety/depression -He does have agitation and was agitated on his previous admission -We will continue with his Zoloft, Seroquel 4. Hypothyroidism -Stable -continue with Synthroid 5. DM 2 -On metformin at home -Will hold and transition to sliding scale insulin 6. BPH -Stable -Continue with Flomax DVT: Coumadin I spent 20 minutes discussing with the family that given his debility and his weakness as well as the possible extensiveness of his pulmonary insult from his aspiration pneumonitis that he may in the future need to be intubated. They stated that it currently is a full code but they understand that if he did code he would not do well and they are discussing whether or not to make him a DNR CCA. I will readdress this with them during his admission. Code Visit Inpatient E&M: 40047 Init Hosp L3 Procedures: 34628 Advncd Care Plan 30 Min
[2018-03-20] MEDS: Atorvastatin Calcium 40 MG Tablet PO (20:54)
[2018-03-20] MEDS: Docusate Sodium 100 MG Capsule PO (20:54)
[2018-03-20] MEDS: Tamsulosin HCl 0.4 MG Capsule PO (20:54)
[2018-03-20] MEDS: 0.9% Normal Saline 1,000 ML 75 ML IV (20:54)
[2018-03-20] MEDS: Carvedilol 12.5 MG Tablet PO (20:55)
[2018-03-20] MEDS: QUEtiapine 25 MG Tablet PO (20:56)
[2018-03-20] MEDS: Polyethylene Glycol 3350 17 GM PACKET PO (20:56)
[2018-03-20] MEDS: Bisacodyl 10 MG Suppository RECTAL (20:57)
[2018-03-20] MEDS: Magnesium Hydroxide 30 ML UDC PO (21:08)
[2018-03-20 23:31] LABS: Bedside Glucose 161 mg/dL (70-110)
[2018-03-21] VITALS (17 sets, daily range): BP systolic 97–122; BP diastolic 57–80; PULSE 71–86; RESP 16–20; TEMP 36.4–37.1; O2SAT 91–98
[2018-03-21] MEDS: Menthol/Lanolin/Calamine/Znox 113 GM Tube 1 APPLIC TOPICAL ×2 (03:01→22:27)
[2018-03-21] MEDS: Ipratropium/Albuterol Sulfate 3 ML AMPUL.NEB INHALATION ×5 (03:39→19:26)
[2018-03-21] MEDS: Levothyroxine 88 MCG Tablet PO (05:35)
[2018-03-21] MEDS: 0.9% Normal Saline 1,000 ML 75 ML IV ×2 (05:42→20:19)
[2018-03-21 06:47] LABS: Absolute Lymphocyte Count 0.81 X10^3/ul (0.83-4.51); Absolute Neutrophil Count 10.9 X10^3/uL (2.0-7.7); Basophil# 0.02 X10^3/uL; Basophil% 0.2 % (0-1); Eosinophil# 0.04 X10^3/uL; Eosinophils% 0.3 % (0-5); Hematocrit 35.8 % (40-54); Lymphocyte # 0.81 X10^3/ul (4.0); Lymphocyte % 6.3 % (19-41); Mean Corp Hgb Conc 30.7 g/gl (32-36); Mean Corpuscular Hgb 27.4 pg (27.0-32.0); Mean Corpuscular Volume 89.1 fL (80-94); Monocyte# 0.95 X10^3/uL; Monocyte% 7.4 % (0-10); Neutrophil % 85.4 % (47-70); Platelet Count 247 K/mm3 (150-450); RBC Distribution Width CV 15.8 % (11.6-14.6); RBC Distribution Width SD 50.8 fl (35.1-43.9); Red Blood Count 4.02 M/mm3 (4.6-6.2); White Blood Count 12.8 K/mm3 (4.4-11.0)
[2018-03-21 06:53] LABS: Prothrombin Time (Protime)PT. 38.3 SECONDS (11.7-14.9)
[2018-03-21 06:55] LABS: POSITIVE COUNT NO; POSITIVE DIFFERENTIAL NO; POSITIVE MORPHOLOGY NO
[2018-03-21 06:57] LABS: Anion Gap 10 (5-15); BUN 16 mg/dL (7-18); BUN/Creat Ratio 15.5 RATIO (10-20); Calcium,Total 8.4 mg/dL (8.5-10.1); Chloride 105 mmol/L (98-107); Creatinine, Serum 1.03 mg/dL (0.70-1.30); EST Glomerular Filtration Rate 75 mL/min (>60); Est Glom Filt Rate - Afr Amer 91 mL/min (>60); Estimated Creatinine Clearance 75.37 ml/min; Glucose 135 mg/dL (74-106); Potassium 3.7 mmol/L (3.5-5.1); Sodium Level 141 mmol/L (136-145)
[2018-03-21 06:59] LABS: International Normalized Ratio 3.9
[2018-03-21 07:00] LABS: Bedside Glucose 129 mg/dL (70-110)
--- NOTE | 2018-03-21 09:30 | NURSING ---
Respiratory made aware of pt's respiratory status. Pt very rhonchourous thorough out. Satting well on 1L O2. Pt not clearing secretions well. Encouraged to cough. Respiratory notified.
--- NOTE | 2018-03-21 09:53 | CPS ---
0950..assessed pt. BS rhonchi, sat 92% on 2 lpm. Pt asked to cough. Pt did follow instruction and gave good cough effort. Nurse called and made aware of assessment. Nurse informed to encourage pt to cough throughout day.
[2018-03-21] MEDS: Bisacodyl 10 MG Suppository RECTAL (11:48)
[2018-03-21 12:11] LABS: Bedside Glucose 119 mg/dL (70-110)
--- NOTE | 2018-03-21 12:49 | PCM.PN.HOSP ---
Patient Problems: Active and Suspected Problems Aspiration pneumonitis (Acute) Abdominal distension (gaseous) (Acute) Subjective: Not alert this morning lethargic, somewhat arousable. No increase in his oxygen demands at the moment, but unable to take p.o. for the nurse Vitals/I&O's: Vital Signs Temp Pulse Resp BP Pulse Ox 98.5 F 76 16 107/75 93 03/21/18 08:58 03/21/18 11:39 03/21/18 10:47 03/21/18 08:58 03/21/18 10:47 Oxygen Flow Rate (L/min) 2 Oxygen Delivery Method Nasal Cannula Weight: 188 lb 4.396 oz Body Mass Index (BMI) 24.1 Finger Stick Blood Glucose 105 Intake and Output for Last 24 Hours 03/19/18 03/20/18 03/21/18 23:59 23:59 23:59 Intake Total 650 / 650 982 / 982 Output Total 500 / 500 250 / 250 Balance 150 / 150 732 / 732 General: Lethargic HEENT: Atraumatic, Normocephalic Oral: Dry Mucosa Neck: Supple, No JVD Lungs: Diminished, Rales, Rhonchi Cardiovascular: Regular rate, Regular Rhythm, Normal S1, Normal S2, No murmurs, No rub noted, No Gallop Abdomen: Soft, Non Tender, Distended - Firm Extremities: No edema, Capillary Refill Less than 3 Seconds Skin: No rashes, No breakdown Neurological: Neuro grossly intact, Sensory exam intact to light touch and pain Microbiology Past 72 Hours 03/20/18 16:10 Urine, Catheterized Urine Culture - 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 lactose training specialist Laboratory Results 03/20/18 14:45: WBC 14.0 H, RBC 4.46 L, Hgb 12.4 L, Hct 39.5 L, MCV 88.6, MCH 27.8, MCHC 31.4 L, RDW 15.5 H, RDW Differential 49.0 H, Plt Count 275, MPV 8.8, Immature Gran % (Auto) 0.600, Neut % (Auto) 84.7 H, Lymph % (Auto) 4.3 L, [place] % (Auto) 9.9, Eos % (Auto) 0.4, Baso % (Auto) 0.1, Absolute Neuts (auto) 11.9 H, Absolute Lymphs (auto) 0.61 L, Total Counted Not Reportable 03/20/18 14:45: PT 27.6 H, INR 2.6, APTT 37.6 H 03/20/18 14:45: Sodium 137, Potassium 4.0, Chloride 101, Carbon Dioxide 25.0, Anion Gap 11, BUN 15, Creatinine 1.17, Estim Creat Clear Calc 66.35, Est GFR (MDRD) Af Amer 79, Est GFR (MDRD) Non-Af 65, BUN/Creatinine Ratio 12.8, Glucose 148 H, Calcium 8.8, Total Bilirubin 1.00, AST 13 L, ALT 15 L, Alkaline Phosphatase 105, Total Protein 8.1, Albumin 2.9 L, Globulin 5.2 H, Albumin/Globulin Ratio 0.6 L 03/20/18 14:45: Lactic Acid 1.6 03/20/18 16:10: Urine Color Yellow, Urine Clarity Sl. Cloudy, Urine pH 7.0, Ur Specific [place] 1.005, Urine Protein 15 H, Urine Glucose (UA) Normal, Urine Ketones Negative, Urine Occult Blood 25 H, Urine Nitrite Negative, Urine Bilirubin Negative, Urine Urobilinogen Normal, Ur Leukocyte Esterase 500 H, Urine RBC 0 SEEN, Urine WBC 25-50 SEEN, Ur Squamous Epith Cells 0 SEEN, Urine Bacteria 1+, Urine Mucus 0 SEEN 03/20/18 23:24: POC Glucose 161 H 03/21/18 06:00: WBC 12.8 H, RBC 4.02 L, Hgb 11.0 L, Hct 35.8 L, MCV 89.1, MCH 27.4, MCHC 30.7 L, RDW 15.8 H, RDW Differential 50.8 H, Plt Count 247, MPV 9.0, Immature Gran % (Auto) 0.400, Neut % (Auto) 85.4 H, Lymph % (Auto) 6.3 L, [place] % (Auto) 7.4, Eos % (Auto) 0.3, Baso % (Auto) 0.2, Absolute Neuts (auto) 10.9 H, Absolute Lymphs (auto) 0.81 L, Total Counted Not Reportable 03/21/18 06:00: Sodium 141, Potassium 3.7, Chloride 105, Carbon Dioxide 26.0, Anion Gap 10, BUN 16, Creatinine 1.03, Estim Creat Clear Calc 75.37, Est GFR (MDRD) Af Amer 91, Est GFR (MDRD) Non-Af 75, BUN/Creatinine Ratio 15.5, Glucose 135 H, Calcium 8.4 L 03/21/18 06:00: PT 38.3 H, INR 3.9 H* 03/21/18 06:53: POC Glucose 129 H 03/21/18 11:39: POC Glucose 119 H Current Medications Albuterol Sulfate (Ventolin Aerosols) 2.5 mg INHALATION Q2H PRN PRN PRN Reason: sob/wheezing Albuterol/Ipratropium (Duoneb) 3 ml INHALATION Q4HWA.RT [facility] Last Admin: 03/21/18 10:47 Dose: 3 ml Amiodarone HCl (Cordarone) 200 mg PO DAILY [facility] Last Admin: 03/21/18 12:23 Dose: Not Given Aspirin (Ecotrin) 81 mg PO DAILY@0800 [facility] Last Admin: 03/21/18 12:23 Dose: Not Given Atorvastatin Calcium (Lipitor) 40 mg PO QHS [facility] Last Admin: 03/20/18 20:54 Dose: 40 mg Bisacodyl (Dulcolax) 10 mg RECTAL DAILY [facility] Last Admin: 03/21/18 11:48 Dose: 10 mg Calamine/Phenol (Calmoseptine Ointment) 1 applic TOPICAL BID [facility]; Protocol Last Admin: 03/21/18 03:01 Dose: 1 applicatio Carvedilol (Coreg) 12.5 mg PO BID [facility] Last Admin: 03/21/18 12:23 Dose: Not Given Dextrose (D50w Syringe) 0 gm IV X1 PRN; Protocol PRN Reason: Hypoglycemia Docusate Sodium (Colace) 100 mg PO BID [facility] Last Admin: 03/21/18 12:23 Dose: Not Given Glucagon () 1 mg IM .X1 PRN PRN Reason: Hypoglycemia Sodium Chloride () 1,000 mls @ 75 mls/hr IV .[id number] [facility] Last Admin: 03/21/18 05:42 Dose: 75 mls/hr Ampicillin Sodium/Sulbactam (Sodium 3 gm/ Sodium Chloride) 112 mls @ 150 mls/hr IV Q8 [facility] Last Admin: 03/21/18 05:36 Dose: 150 mls/hr Insulin Human Lispro (Humalog Kwikpen (Bkc)) 0 unit SC ACHS [facility]; Protocol Last Admin: 03/21/18 12:24 Dose: Not Given Levothyroxine Sodium (Synthroid) 88 mcg PO DAILY@0600 [facility] Last Admin: 03/21/18 05:35 Dose: 88 mcg Losartan Potassium (Cozaar) 25 mg PO DAILY [facility] Last Admin: 03/21/18 12:24 Dose: Not Given Magnesium Hydroxide (Milk Of Magnesia) 30 ml PO DAILY PRN PRN Reason: Constipation Last Admin: 03/20/18 21:08 Dose: 30 ml Polyethylene Glycol (Miralax) 17 gm PO DAILY [facility] Last Admin: 03/21/18 12:24 Dose: Not Given Quetiapine Fumarate (Seroquel) 25 mg PO QHS [facility] Last Admin: 03/20/18 20:56 Dose: 25 mg Sertraline HCl (Zoloft) 50 mg PO DAILY [facility] Last Admin: 03/21/18 12:25 Dose: Not Given Sodium Chloride () 5 - 15 ml IV UD PRN PRN Reason: SALINE FLUSH Tamsulosin HCl (Flomax) 0.4 mg PO QHS [facility] Last Admin: 03/20/18 20:54 Dose: 0.4 mg Warfarin Sodium (Coumadin (Pbkc)) 3 mg PO DINNER [facility] Medical Necessity - Tobacco Use Smoking Status: Unknown if ever smoked Tobacco Use: Cigarettes Assessment/Plan All Active Problems Aspiration pneumonitis (Acute) Abdominal distension (gaseous) (Acute) Bilateral leg ulcer (Resolved) GI bleeding (Resolved) 1. Aspiration pneumonitis/abdominal distention due to constipation/UTI -He was started on aggressive bowel regimen with MiraLAX, Colace twice daily, and a suppository -He has had 3 moderate liquid bowel movements since admission, I do not appreciate any improvement in his distention -His breath sounds which were yesterday were clear today are rhonchorous and wet -Continue with Unasyn to treat both the aspiration pneumonitis in the hopes of preventing pneumonia, as well as treating empirically his urinary tract infection -Given the extent of his distention, will discuss with the family about consulting potentially, though given his cardiac function his debility as well as his poor nutrition his functional status is not great for tolerating any sort of excessive intervention 2. Chronic A. fib/history of CVA/chronic systolic CHF/CAD status post CABG with ischemic cardiomyopathy/hyperlipidemia/hypertension -Hold his medications given his status change and being n.p.o. -Hold Lasix since he is receiving fluids given to his poor intake and constipation -INR on admission is 2.6, elevated to 3.9 today we will hold Coumadin 3. Anxiety/depression -He does have agitation and was agitated on his previous admission -We will hold his oral medications and provide him as needed therapy 4. Hypothyroidism -Stable -continue with Synthroid 5. DM 2 -On metformin at home -Will hold and transition to sliding scale insulin, and Accu-Cheks 6. BPH -Stable -Continue with Flomax DVT: SCDs Code Visit Inpatient E&M: 25538 Subs Hosp L2
--- NOTE | 2018-03-21 12:55 | PN_ITS ---
Patient Problems: Active and Suspected Problems Aspiration pneumonitis (Acute) Abdominal distension (gaseous) (Acute) Subjective: Not alert this morning lethargic, somewhat arousable. No increase in his oxygen demands at the moment, but unable to take p.o. for the nurse Vitals/I&O's: Vital Signs Temp Pulse Resp BP Pulse Ox 98.5 F 76 16 107/75 93 03/21/18 08:58 03/21/18 11:39 03/21/18 10:47 03/21/18 08:58 03/21/18 10:47 Oxygen Flow Rate (L/min) 2 Oxygen Delivery Method Nasal Cannula Weight: 188 lb 4.396 oz Body Mass Index (BMI) 24.1 Finger Stick Blood Glucose 105 Intake and Output for Last 24 Hours 03/19/18 03/20/18 03/21/18 23:59 23:59 23:59 Intake Total 650 / 650 982 / 982 Output Total 500 / 500 250 / 250 Balance 150 / 150 732 / 732 General: Lethargic HEENT: Atraumatic, Normocephalic Oral: Dry Mucosa Neck: Supple, No JVD Lungs: Diminished, Rales, Rhonchi Cardiovascular: Regular rate, Regular Rhythm, Normal S1, Normal S2, No murmurs, No rub noted, No Gallop Abdomen: Soft, Non Tender, Distended - Firm Extremities: No edema, Capillary Refill Less than 3 Seconds Skin: No rashes, No breakdown Neurological: Neuro grossly intact, Sensory exam intact to light touch and pain Microbiology Past 72 Hours 03/20/18 16:10 Urine, Catheterized Urine Culture - 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 intern Laboratory Results 03/20/18 14:45: WBC 14.0 H, RBC 4.46 L, Hgb 12.4 L, Hct 39.5 L, MCV 88.6, MCH 27.8, MCHC 31.4 L, RDW 15.5 H, RDW Differential 49.0 H, Plt Count 275, MPV 8.8, Immature Gran % (Auto) 0.600, Neut % (Auto) 84.7 H, Lymph % (Auto) 4.3 L, [place] % (Auto) 9.9, Eos % (Auto) 0.4, Baso % (Auto) 0.1, Absolute Neuts (auto) 11.9 H, Absolute Lymphs (auto) 0.61 L, Total Counted Not Reportable 03/20/18 14:45: PT 27.6 H, INR 2.6, APTT 37.6 H 03/20/18 14:45: Sodium 137, Potassium 4.0, Chloride 101, Carbon Dioxide 25.0, Anion Gap 11, BUN 15, Creatinine 1.17, Estim Creat Clear Calc 66.35, Est GFR (MDRD) Af Amer 79, Est GFR (MDRD) Non-Af 65, BUN/Creatinine Ratio 12.8, Glucose 148 H, Calcium 8.8, Total Bilirubin 1.00, AST 13 L, ALT 15 L, Alkaline Phosphatase 105, Total Protein 8.1, Albumin 2.9 L, Globulin 5.2 H, Albumin/Globulin Ratio 0.6 L 03/20/18 14:45: Lactic Acid 1.6 03/20/18 16:10: Urine Color Yellow, Urine Clarity Sl. Cloudy, Urine pH 7.0, Ur Specific [place] 1.005, Urine Protein 15 H, Urine Glucose (UA) Normal, Urine Ketones Negative, Urine Occult Blood 25 H, Urine Nitrite Negative, Urine Bilirubin Negative, Urine Urobilinogen Normal, Ur Leukocyte Esterase 500 H, Urine RBC 0 SEEN, Urine WBC 25-50 SEEN, Ur Squamous Epith Cells 0 SEEN, Urine Bacteria 1+, Urine Mucus 0 SEEN 03/20/18 23:24: POC Glucose 161 H 03/21/18 06:00: WBC 12.8 H, RBC 4.02 L, Hgb 11.0 L, Hct 35.8 L, MCV 89.1, MCH 27.4, MCHC 30.7 L, RDW 15.8 H, RDW Differential 50.8 H, Plt Count 247, MPV 9.0, Immature Gran % (Auto) 0.400, Neut % (Auto) 85.4 H, Lymph % (Auto) 6.3 L, [place] % (Auto) 7.4, Eos % (Auto) 0.3, Baso % (Auto) 0.2, Absolute Neuts (auto) 10.9 H, Absolute Lymphs (auto) 0.81 L, Total Counted Not Reportable 03/21/18 06:00: Sodium 141, Potassium 3.7, Chloride 105, Carbon Dioxide 26.0, Anion Gap 10, BUN 16, Creatinine 1.03, Estim Creat Clear Calc 75.37, Est GFR (MDRD) Af Amer 91, Est GFR (MDRD) Non-Af 75, BUN/Creatinine Ratio 15.5, Glucose 135 H, Calcium 8.4 L 03/21/18 06:00: PT 38.3 H, INR 3.9 H* 03/21/18 06:53: POC Glucose 129 H 03/21/18 11:39: POC Glucose 119 H Current Medications Albuterol Sulfate (Ventolin Aerosols) 2.5 mg INHALATION Q2H PRN PRN PRN Reason: sob/wheezing Albuterol/Ipratropium (Duoneb) 3 ml INHALATION Q4HWA.RT [facility] Last Admin: 03/21/18 10:47 Dose: 3 ml Amiodarone HCl (Cordarone) 200 mg PO DAILY [facility] Last Admin: 03/21/18 12:23 Dose: Not Given Aspirin (Ecotrin) 81 mg PO DAILY@0800 [facility] Last Admin: 03/21/18 12:23 Dose: Not Given Atorvastatin Calcium (Lipitor) 40 mg PO QHS [facility] Last Admin: 03/20/18 20:54 Dose: 40 mg Bisacodyl (Dulcolax) 10 mg RECTAL DAILY [facility] Last Admin: 03/21/18 11:48 Dose: 10 mg Calamine/Phenol (Calmoseptine Ointment) 1 applic TOPICAL BID [facility]; Protocol Last Admin: 03/21/18 03:01 Dose: 1 applicatio Carvedilol (Coreg) 12.5 mg PO BID [facility] Last Admin: 03/21/18 12:23 Dose: Not Given Dextrose (D50w Syringe) 0 gm IV X1 PRN; Protocol PRN Reason: Hypoglycemia Docusate Sodium (Colace) 100 mg PO BID [facility] Last Admin: 03/21/18 12:23 Dose: Not Given Glucagon () 1 mg IM .X1 PRN PRN Reason: Hypoglycemia Sodium Chloride () 1,000 mls @ 75 mls/hr IV .[id number] [facility] Last Admin: 03/21/18 05:42 Dose: 75 mls/hr Ampicillin Sodium/Sulbactam (Sodium 3 gm/ Sodium Chloride) 112 mls @ 150 mls/hr IV Q8 [facility] Last Admin: 03/21/18 05:36 Dose: 150 mls/hr Insulin Human Lispro (Humalog Kwikpen (Bkc)) 0 unit SC ACHS [facility]; Protocol Last Admin: 03/21/18 12:24 Dose: Not Given Levothyroxine Sodium (Synthroid) 88 mcg PO DAILY@0600 [facility] Last Admin: 03/21/18 05:35 Dose: 88 mcg Losartan Potassium (Cozaar) 25 mg PO DAILY [facility] Last Admin: 03/21/18 12:24 Dose: Not Given Magnesium Hydroxide (Milk Of Magnesia) 30 ml PO DAILY PRN PRN Reason: Constipation Last Admin: 03/20/18 21:08 Dose: 30 ml Polyethylene Glycol (Miralax) 17 gm PO DAILY [facility] Last Admin: 03/21/18 12:24 Dose: Not Given Quetiapine Fumarate (Seroquel) 25 mg PO QHS [facility] Last Admin: 03/20/18 20:56 Dose: 25 mg Sertraline HCl (Zoloft) 50 mg PO DAILY [facility] Last Admin: 03/21/18 12:25 Dose: Not Given Sodium Chloride () 5 - 15 ml IV UD PRN PRN Reason: SALINE FLUSH Tamsulosin HCl (Flomax) 0.4 mg PO QHS [facility] Last Admin: 03/20/18 20:54 Dose: 0.4 mg Warfarin Sodium (Coumadin (Pbkc)) 3 mg PO DINNER [facility] Medical Necessity - Tobacco Use Smoking Status: Unknown if ever smoked Tobacco Use: Cigarettes Assessment/Plan All Active Problems Aspiration pneumonitis (Acute) Abdominal distension (gaseous) (Acute) Bilateral leg ulcer (Resolved) GI bleeding (Resolved) 1. Aspiration pneumonitis/abdominal distention due to constipation/UTI -He was started on aggressive bowel regimen with MiraLAX, Colace twice daily, and a suppository -He has had 3 moderate liquid bowel movements since admission, I do not appreciate any improvement in his distention -His breath sounds which were yesterday were clear today are rhonchorous and wet -Continue with Unasyn to treat both the aspiration pneumonitis in the hopes of preventing pneumonia, as well as treating empirically his urinary tract infection -Given the extent of his distention, will discuss with the family about consulting potentially, though given his cardiac function his debility as well as his poor nutrition his functional status is not great for tolerating any sort of excessive intervention 2. Chronic A. fib/history of CVA/chronic systolic CHF/CAD status post CABG with ischemic cardiomyopathy/hyperlipidemia/hypertension -Hold his medications given his status change and being n.p.o. -Hold Lasix since he is receiving fluids given to his poor intake and constipation -INR on admission is 2.6, elevated to 3.9 today we will hold Coumadin 3. Anxiety/depression -He does have agitation and was agitated on his previous admission -We will hold his oral medications and provide him as needed therapy 4. Hypothyroidism -Stable -continue with Synthroid 5. DM 2 -On metformin at home -Will hold and transition to sliding scale insulin, and Accu-Cheks 6. BPH -Stable -Continue with Flomax DVT: SCDs Code Visit Inpatient E&M: 17851 Subs Hosp L2
--- NOTE | 2018-03-21 15:57 | CM.UR ---
ANGELITA GALVAN assessment: Face to Face with patient for initial transition planning/care coordination assessment. ANGELITA GALVAN introduced self and role at [facility], daughter, Saloni, voices understanding and consents to assessment at this time. Pt is lying in bed in no distress at this time. This RN CM spoke with daughter and she answered all questions for pt at this time. Care providers, pharmacy, and demographics verified at this time. PCP: [facility] Specialists: family states currently no specialists. [facility] Insurance: [employer] Prescription Benefit: [employer] Living Will/HPOA: Pt does not have LW/HPOA on file at [facility] at this time. LNOK: Ángela Raza, ; Saloni Garcia, daughter Living Arrangements: Pt currently lives with , two daughters, and family on the main level of a 2 story home and states increasing needs for pt recently. Per daughter, pt is not independent with ADL's. Pt gets assistance from and family. Transportation: Family drives and states no transportation concerns at this time. DME/HHC: Pt has the following DME: walker, hospital bed and shower chair. Per daughter, pt has had [facility] HHC in the past. Spoke with and daughter. is stating patient will return with resumption of HHC. Plan: Home w/HHC. Ly Naik RN, CCM
[2018-03-21 16:56] LABS: Bedside Glucose 113 mg/dL (70-110)
[2018-03-21] MEDS: Lactulose 20 GM/30 ML UDC PO ×2 (18:21→23:02)
[2018-03-22] VITALS (14 sets, daily range): BP systolic 101–140; BP diastolic 70–86; PULSE 72–89; RESP 16–22; TEMP 36.4–36.6; O2SAT 94–98
[2018-03-22] MEDS: Levothyroxine 88 MCG Tablet PO (05:30)
[2018-03-22] MEDS: Lactulose 20 GM/30 ML UDC PO ×4 (06:23→20:59)
--- NOTE | 2018-03-22 06:45 | PCM.PN.HOSP ---
Patient Problems: Active and Suspected Problems Aspiration pneumonitis (Acute) Abdominal distension (gaseous) (Acute) Subjective: More alert today than he was yesterday, asking for water. He was interacting with his . Still distended with rhonchorous breath sounds Vitals/I&O's: Vital Signs Temp Pulse Resp BP Pulse Ox 97.6 F L 78 18 101/70 94 03/22/18 03:55 03/22/18 03:55 03/22/18 03:55 03/22/18 03:55 03/22/18 03:55 Oxygen Flow Rate (L/min) 2 Oxygen Delivery Method Nasal Cannula Weight: 188 lb 4.396 oz Body Mass Index (BMI) 24.1 Finger Stick Blood Glucose 105 Intake and Output for Last 24 Hours 03/20/18 03/21/18 03/22/18 23:59 23:59 23:59 Intake Total 650 / 650 2548 / 2548 662 / 662 Output Total 500 / 500 250 / 250 Balance 150 / 150 2298 / 2298 662 / 662 General: Lethargic HEENT: Atraumatic, Normocephalic Oral: Dry Mucosa Neck: Supple, No JVD Lungs: Diminished, Rales, Rhonchi Cardiovascular: Regular rate, Regular Rhythm, Normal S1, Normal S2, No murmurs, No rub noted, No Gallop Abdomen: Soft, Non Tender, Distended - Firm Extremities: No edema, Capillary Refill Less than 3 Seconds Skin: No rashes, No breakdown Neurological: Neuro grossly intact, Sensory exam intact to light touch and pain Microbiology Past 72 Hours 03/20/18 16:10 Urine, Catheterized Urine Culture - 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 Laboratory Results 03/21/18 06:00: WBC 12.8 H, RBC 4.02 L, Hgb 11.0 L, Hct 35.8 L, MCV 89.1, MCH 27.4, MCHC 30.7 L, RDW 15.8 H, RDW Differential 50.8 H, Plt Count 247, MPV 9.0, Immature Gran % (Auto) 0.400, Neut % (Auto) 85.4 H, Lymph % (Auto) 6.3 L, [place] % (Auto) 7.4, Eos % (Auto) 0.3, Baso % (Auto) 0.2, Absolute Neuts (auto) 10.9 H, Absolute Lymphs (auto) 0.81 L, Total Counted Not Reportable 03/21/18 06:00: Sodium 141, Potassium 3.7, Chloride 105, Carbon Dioxide 26.0, Anion Gap 10, BUN 16, Creatinine 1.03, Estim Creat Clear Calc 75.37, Est GFR (MDRD) Af Amer 91, Est GFR (MDRD) Non-Af 75, BUN/Creatinine Ratio 15.5, Glucose 135 H, Calcium 8.4 L 03/21/18 06:00: PT 38.3 H, INR 3.9 H* 03/21/18 06:53: POC Glucose 129 H 03/21/18 11:39: POC Glucose 119 H 03/21/18 16:51: POC Glucose 113 H Current Medications Albuterol Sulfate (Ventolin Aerosols) 2.5 mg INHALATION Q2H PRN PRN PRN Reason: sob/wheezing Albuterol/Ipratropium (Duoneb) 3 ml INHALATION Q4HWA.RT [facility] Last Admin: 03/21/18 19:26 Dose: 3 ml Amiodarone HCl (Cordarone) 200 mg PO DAILY [facility] Last Admin: 03/21/18 12:23 Dose: Not Given Aspirin (Ecotrin) 81 mg PO DAILY@0800 [facility] Last Admin: 03/21/18 12:23 Dose: Not Given Atorvastatin Calcium (Lipitor) 40 mg PO QHS [facility] Last Admin: 03/21/18 20:21 Dose: Not Given Bisacodyl (Dulcolax) 10 mg RECTAL DAILY [facility] Last Admin: 03/21/18 11:48 Dose: 10 mg Calamine/Phenol (Calmoseptine Ointment) 1 applic TOPICAL BID [facility]; Protocol Last Admin: 03/21/18 22:27 Dose: 1 applicatio Carvedilol (Coreg) 12.5 mg PO BID [facility] Last Admin: 03/21/18 20:20 Dose: Not Given Dextrose (D50w Syringe) 0 gm IV X1 PRN; Protocol PRN Reason: Hypoglycemia Docusate Sodium (Colace) 100 mg PO BID [facility] Last Admin: 03/21/18 20:20 Dose: Not Given Glucagon () 1 mg IM .X1 PRN PRN Reason: Hypoglycemia Sodium Chloride () 1,000 mls @ 75 mls/hr IV .[id number] [facility] Last Admin: 03/21/18 20:19 Dose: 75 mls/hr Ampicillin Sodium/Sulbactam (Sodium 3 gm/ Sodium Chloride) 112 mls @ 150 mls/hr IV Q8 [facility] Last Admin: 03/22/18 05:30 Dose: 150 mls/hr Insulin Human Lispro (Humalog Kwikpen (Bkc)) 0 unit SC ACHS [facility]; Protocol Last Admin: 03/21/18 20:20 Dose: Not Given Lactulose (Chronulac, Cephulac) 20 gm PO Q4H PRN PRN Reason: Constipation Last Admin: 03/22/18 06:23 Dose: 20 gm Levothyroxine Sodium (Synthroid) 88 mcg PO DAILY@0600 [facility] Last Admin: 03/22/18 05:30 Dose: 88 mcg Losartan Potassium (Cozaar) 25 mg PO DAILY [facility] Last Admin: 03/21/18 12:24 Dose: Not Given Magnesium Hydroxide (Milk Of Magnesia) 30 ml PO DAILY PRN PRN Reason: Constipation Last Admin: 03/20/18 21:08 Dose: 30 ml Polyethylene Glycol (Miralax) 17 gm PO DAILY [facility] Last Admin: 03/21/18 12:24 Dose: Not Given Quetiapine Fumarate (Seroquel) 25 mg PO QHS [facility] Last Admin: 03/21/18 20:21 Dose: Not Given Sertraline HCl (Zoloft) 50 mg PO DAILY [facility] Last Admin: 03/21/18 12:25 Dose: Not Given Sodium Chloride () 5 - 15 ml IV UD PRN PRN Reason: SALINE FLUSH Tamsulosin HCl (Flomax) 0.4 mg PO QHS [facility] Last Admin: 03/21/18 20:20 Dose: Not Given Warfarin Sodium (Coumadin (Pbkc)) 3 mg PO DINNER [facility] Last Admin: 03/21/18 17:10 Dose: Not Given Medical Necessity - Tobacco Use Smoking Status: Unknown if ever smoked Tobacco Use: Cigarettes Assessment/Plan All Active Problems Aspiration pneumonitis (Acute) Abdominal distension (gaseous) (Acute) Bilateral leg ulcer (Resolved) GI bleeding (Resolved) 1. Aspiration pneumonitis/abdominal distention due to constipation/UTI -He was started on aggressive bowel regimen with MiraLAX, Colace twice daily, and a suppository -He has had 4 moderate liquid bowel movements since admission, I do not appreciate any improvement in his distention -His breath sounds which were yesterday were clear today are rhonchorous and wet -Continue with Unasyn to treat both the aspiration pneumonitis in the hopes of preventing pneumonia, as well as treating empirically his urinary tract infection -He was able to take some sips of lactulose last night, will continue this to attempt to decrease his distention. I stressed with the family that he may need a general surgery consult but he would candidate for any aggressive intervention. They had a family meeting last night and we will discuss further today 2. Chronic A. fib/history of CVA/chronic systolic CHF/CAD status post CABG with ischemic cardiomyopathy/hyperlipidemia/hypertension -Hold his medications given his status change and being n.p.o. -Hold Lasix since he is receiving fluids given to his poor intake and constipation -INR on admission is 2.6, elevated to 4.0 today we will hold Coumadin 3. Anxiety/depression -He does have agitation and was agitated on his previous admission -We will hold his oral medications and provide him as needed therapy 4. Hypothyroidism -Stable -continue with Synthroid 5. DM 2 -On metformin at home, will hold -sliding scale insulin, and Accu-Cheks 6. BPH -Stable -Continue with Flomax DVT: SCDs Code Visit Inpatient E&M: 59097 Subs Hosp L2
--- NOTE | 2018-03-22 06:49 | PN_ITS ---
Patient Problems: Active and Suspected Problems Aspiration pneumonitis (Acute) Abdominal distension (gaseous) (Acute) Subjective: More alert today than he was yesterday, asking for water. He was interacting with his . Still distended with rhonchorous breath sounds Vitals/I&O's: Vital Signs Temp Pulse Resp BP Pulse Ox 97.6 F L 78 18 101/70 94 03/22/18 03:55 03/22/18 03:55 03/22/18 03:55 03/22/18 03:55 03/22/18 03:55 Oxygen Flow Rate (L/min) 2 Oxygen Delivery Method Nasal Cannula Weight: 188 lb 4.396 oz Body Mass Index (BMI) 24.1 Finger Stick Blood Glucose 105 Intake and Output for Last 24 Hours 03/20/18 03/21/18 03/22/18 23:59 23:59 23:59 Intake Total 650 / 650 2548 / 2548 662 / 662 Output Total 500 / 500 250 / 250 Balance 150 / 150 2298 / 2298 662 / 662 General: Lethargic HEENT: Atraumatic, Normocephalic Oral: Dry Mucosa Neck: Supple, No JVD Lungs: Diminished, Rales, Rhonchi Cardiovascular: Regular rate, Regular Rhythm, Normal S1, Normal S2, No murmurs, No rub noted, No Gallop Abdomen: Soft, Non Tender, Distended - Firm Extremities: No edema, Capillary Refill Less than 3 Seconds Skin: No rashes, No breakdown Neurological: Neuro grossly intact, Sensory exam intact to light touch and pain Microbiology Past 72 Hours 03/20/18 16:10 Urine, Catheterized Urine Culture - 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 Laboratory Results 03/21/18 06:00: WBC 12.8 H, RBC 4.02 L, Hgb 11.0 L, Hct 35.8 L, MCV 89.1, MCH 27.4, MCHC 30.7 L, RDW 15.8 H, RDW Differential 50.8 H, Plt Count 247, MPV 9.0, Immature Gran % (Auto) 0.400, Neut % (Auto) 85.4 H, Lymph % (Auto) 6.3 L, [place] % (Auto) 7.4, Eos % (Auto) 0.3, Baso % (Auto) 0.2, Absolute Neuts (auto) 10.9 H, Absolute Lymphs (auto) 0.81 L, Total Counted Not Reportable 03/21/18 06:00: Sodium 141, Potassium 3.7, Chloride 105, Carbon Dioxide 26.0, Anion Gap 10, BUN 16, Creatinine 1.03, Estim Creat Clear Calc 75.37, Est GFR (MDRD) Af Amer 91, Est GFR (MDRD) Non-Af 75, BUN/Creatinine Ratio 15.5, Glucose 135 H, Calcium 8.4 L 03/21/18 06:00: PT 38.3 H, INR 3.9 H* 03/21/18 06:53: POC Glucose 129 H 03/21/18 11:39: POC Glucose 119 H 03/21/18 16:51: POC Glucose 113 H Current Medications Albuterol Sulfate (Ventolin Aerosols) 2.5 mg INHALATION Q2H PRN PRN PRN Reason: sob/wheezing Albuterol/Ipratropium (Duoneb) 3 ml INHALATION Q4HWA.RT [facility] Last Admin: 03/21/18 19:26 Dose: 3 ml Amiodarone HCl (Cordarone) 200 mg PO DAILY [facility] Last Admin: 03/21/18 12:23 Dose: Not Given Aspirin (Ecotrin) 81 mg PO DAILY@0800 [facility] Last Admin: 03/21/18 12:23 Dose: Not Given Atorvastatin Calcium (Lipitor) 40 mg PO QHS [facility] Last Admin: 03/21/18 20:21 Dose: Not Given Bisacodyl (Dulcolax) 10 mg RECTAL DAILY [facility] Last Admin: 03/21/18 11:48 Dose: 10 mg Calamine/Phenol (Calmoseptine Ointment) 1 applic TOPICAL BID [facility]; Protocol Last Admin: 03/21/18 22:27 Dose: 1 applicatio Carvedilol (Coreg) 12.5 mg PO BID [facility] Last Admin: 03/21/18 20:20 Dose: Not Given Dextrose (D50w Syringe) 0 gm IV X1 PRN; Protocol PRN Reason: Hypoglycemia Docusate Sodium (Colace) 100 mg PO BID [facility] Last Admin: 03/21/18 20:20 Dose: Not Given Glucagon () 1 mg IM .X1 PRN PRN Reason: Hypoglycemia Sodium Chloride () 1,000 mls @ 75 mls/hr IV .[id number] [facility] Last Admin: 03/21/18 20:19 Dose: 75 mls/hr Ampicillin Sodium/Sulbactam (Sodium 3 gm/ Sodium Chloride) 112 mls @ 150 mls/hr IV Q8 [facility] Last Admin: 03/22/18 05:30 Dose: 150 mls/hr Insulin Human Lispro (Humalog Kwikpen (Bkc)) 0 unit SC ACHS [facility]; Protocol Last Admin: 03/21/18 20:20 Dose: Not Given Lactulose (Chronulac, Cephulac) 20 gm PO Q4H PRN PRN Reason: Constipation Last Admin: 03/22/18 06:23 Dose: 20 gm Levothyroxine Sodium (Synthroid) 88 mcg PO DAILY@0600 [facility] Last Admin: 03/22/18 05:30 Dose: 88 mcg Losartan Potassium (Cozaar) 25 mg PO DAILY [facility] Last Admin: 03/21/18 12:24 Dose: Not Given Magnesium Hydroxide (Milk Of Magnesia) 30 ml PO DAILY PRN PRN Reason: Constipation Last Admin: 03/20/18 21:08 Dose: 30 ml Polyethylene Glycol (Miralax) 17 gm PO DAILY [facility] Last Admin: 03/21/18 12:24 Dose: Not Given Quetiapine Fumarate (Seroquel) 25 mg PO QHS [facility] Last Admin: 03/21/18 20:21 Dose: Not Given Sertraline HCl (Zoloft) 50 mg PO DAILY [facility] Last Admin: 03/21/18 12:25 Dose: Not Given Sodium Chloride () 5 - 15 ml IV UD PRN PRN Reason: SALINE FLUSH Tamsulosin HCl (Flomax) 0.4 mg PO QHS [facility] Last Admin: 03/21/18 20:20 Dose: Not Given Warfarin Sodium (Coumadin (Pbkc)) 3 mg PO DINNER [facility] Last Admin: 03/21/18 17:10 Dose: Not Given Medical Necessity - Tobacco Use Smoking Status: Unknown if ever smoked Tobacco Use: Cigarettes Assessment/Plan All Active Problems Aspiration pneumonitis (Acute) Abdominal distension (gaseous) (Acute) Bilateral leg ulcer (Resolved) GI bleeding (Resolved) 1. Aspiration pneumonitis/abdominal distention due to constipation/UTI -He was started on aggressive bowel regimen with MiraLAX, Colace twice daily, and a suppository -He has had 4 moderate liquid bowel movements since admission, I do not appreciate any improvement in his distention -His breath sounds which were yesterday were clear today are rhonchorous and wet -Continue with Unasyn to treat both the aspiration pneumonitis in the hopes of preventing pneumonia, as well as treating empirically his urinary tract infection -He was able to take some sips of lactulose last night, will continue this to attempt to decrease his distention. I stressed with the family that he may need a general surgery consult but he would candidate for any aggressive intervention. They had a family meeting last night and we will discuss further today 2. Chronic A. fib/history of CVA/chronic systolic CHF/CAD status post CABG with ischemic cardiomyopathy/hyperlipidemia/hypertension -Hold his medications given his status change and being n.p.o. -Hold Lasix since he is receiving fluids given to his poor intake and constipation -INR on admission is 2.6, elevated to 4.0 today we will hold Coumadin 3. Anxiety/depression -He does have agitation and was agitated on his previous admission -We will hold his oral medications and provide him as needed therapy 4. Hypothyroidism -Stable -continue with Synthroid 5. DM 2 -On metformin at home, will hold -sliding scale insulin, and Accu-Cheks 6. BPH -Stable -Continue with Flomax DVT: SCDs Code Visit Inpatient E&M: 66621 Subs Hosp L2
[2018-03-22] MEDS: Ipratropium/Albuterol Sulfate 3 ML AMPUL.NEB INHALATION ×2 (06:55→10:49)
[2018-03-22 06:56] LABS: Bedside Glucose 93 mg/dL (70-110)
[2018-03-22 07:14] LABS: Prothrombin Time (Protime)PT. 39.6 SECONDS (11.7-14.9)
[2018-03-22 07:16] LABS: Absolute Lymphocyte Count 1.07 X10^3/ul (0.83-4.51); Absolute Neutrophil Count 7.3 X10^3/uL (2.0-7.7); Basophil# 0.03 X10^3/uL; Basophil% 0.3 % (0-1); Eosinophil# 0.17 X10^3/uL; Eosinophils% 1.8 % (0-5); Hemoglobin 10.4 g/dl (13.0-16.5); Lymphocyte # 1.07 X10^3/ul (4.0); Lymphocyte % 11.1 % (19-41); Mean Corp Hgb Conc 31.5 g/gl (32-36); Mean Corpuscular Hgb 28.3 pg (27.0-32.0); Mean Corpuscular Volume 89.9 fL (80-94); Mean Platelet Vol. 9.2 fl (6.2-12.0); Monocyte% 10.4 % (0-10); Neutrophil # 7.33 X10^3/uL (2.7-7.7); Neutrophil % 75.9 % (47-70); Platelet Count 253 K/mm3 (150-450); RBC Distribution Width CV 15.9 % (11.6-14.6); RBC Distribution Width SD 51.7 fl (35.1-43.9); Red Blood Count 3.67 M/mm3 (4.6-6.2); White Blood Count 9.7 K/mm3 (4.4-11.0)
[2018-03-22 07:17] LABS: POSITIVE COUNT NO; POSITIVE DIFFERENTIAL NO; POSITIVE MORPHOLOGY NO
[2018-03-22 07:24] LABS: Anion Gap 11 (5-15); BUN 20 mg/dL (7-18); BUN/Creat Ratio 22.3 RATIO (10-20); Calcium,Total 8.2 mg/dL (8.5-10.1); Chloride 109 mmol/L (98-107); EST Glomerular Filtration Rate 88 mL/min (>60); Est Glom Filt Rate - Afr Amer 107 mL/min (>60); Estimated Creatinine Clearance 86.26 ml/min; Glucose 91 mg/dL (74-106); Potassium 3.8 mmol/L (3.5-5.1); Sodium Level 140 mmol/L (136-145)
[2018-03-22] MEDS: Menthol/Lanolin/Calamine/Znox 113 GM Tube 1 APPLIC TOPICAL ×2 (09:51→21:00)
[2018-03-22] MEDS: Bisacodyl 10 MG Suppository RECTAL (09:56)
--- NOTE | 2018-03-22 11:29 | NURSING ---
Pts family at bedside.
[2018-03-22 12:05] LABS: Bedside Glucose 114 mg/dL (70-110)
--- NOTE | 2018-03-22 12:45 | NURSING ---
Dr. Shell at bedside talking to family. Continue Lactulose Q4 hours per Dr. Shell.
--- NOTE | 2018-03-22 13:12 | NURSING ---
18fr gonzales catheter inserted per order and per protocol, pt tolerated well, 500cc hilton colored urine returned. VSS.
--- NOTE | 2018-03-22 14:22 | NURSING ---
Pt sleeping quietly, at bedside. Call light within reach.
[2018-03-22 16:26] LABS: Bedside Glucose 111 mg/dL (70-110)
[2018-03-22] MEDS: 0.9% NaCl Peripheral Flush Adult/Peds IV (21:01)
[2018-03-22] MEDS: Furosemide 20 MG/2 ML VIAL IV (21:01)
[2018-03-22 23:40] LABS: Bedside Glucose 103 mg/dL (70-110)
[2018-03-23] VITALS (21 sets, daily range): BP systolic 90–165; BP diastolic 54–90; PULSE 62–102; RESP 16–20; TEMP 36.2–36.8; O2SAT 82–100; BMI 24.1
[2018-03-23] MEDS: Lactulose 20 GM/30 ML UDC PO ×2 (00:59→05:15)
[2018-03-23 06:38] LABS: Anion Gap 11 (5-15); BUN 42 mg/dL (7-18); BUN/Creat Ratio 30.9 RATIO (10-20); Chloride 103 mmol/L (98-107); Creatinine, Serum 1.36 mg/dL (0.70-1.30); EST Glomerular Filtration Rate 55 mL/min (>60); Est Glom Filt Rate - Afr Amer 66 mL/min (>60); Estimated Creatinine Clearance 57.08 ml/min; Glucose 132 mg/dL (74-106); Potassium 3.4 mmol/L (3.5-5.1); Sodium Level 140 mmol/L (136-145)
[2018-03-23 06:48] LABS: Prothrombin Time (Protime)PT. 13.6 SECONDS (11.7-14.9)
[2018-03-23 06:55] LABS: Bedside Glucose 133 mg/dL (70-110)
[2018-03-23] MEDS: Ipratropium/Albuterol Sulfate 3 ML AMPUL.NEB INHALATION ×3 (07:03→20:00)
--- NOTE | 2018-03-23 07:28 | CPS ---
pt found with oxygen off....in his hands. Oxygen placed back in nose and sat. up to 90%
--- NOTE | 2018-03-23 09:02 | CT_ITS ---
STUDY: CT ABDOMEN AND PELVIS WITHOUT CONTRAST REASON FOR EXAM: Male, 72 years old. Abdominal distention. RADIATION DOSAGE (If Supplied By Facility): CTDIvol = ( 19.93 ) mGy, DLP = ( 1155.07 ) mGycm TECHNIQUE: Transaxial images were obtained from the dome of the diaphragm to the symphysis pubis without oral contrast, and without intravenous contrast. Sagittal and coronal images were reconstructed. Individualized dose optimization techniques were used for this CT. COMPARISON: Comparison is made with prior abdominal radiograph dated March 20, 2018. FINDINGS: Patchy bibasilar infiltrates superimposed on the chronic scarring with bronchiectasis is worse at the left lung base. Small bilateral pleural effusions. Coronary artery calcification. Normal liver. Normal gallbladder and extrahepatic biliary system. There are multiple benign calcified granulomata of the spleen. Normal pancreas. Normal bilateral adrenal glands. Normal right kidney. Normal left kidney. Normal visualized stomach. Normal small intestine. Markedly distended colon down to the rectum. A moderate amount of fecal material is seen in the rectosigmoid colon. Unity's syndrome should be ruled out. The cecum measures 18.1 cm in transverse dimension. There is evidence of pneumatosis in the bowel wall in the region of the posterior cecum as well as the descending colon. The appendix is visualized and appears normal. There is diffuse atherosclerotic calcification of the abdominal aorta, without a demonstrated aneurysm. Normal inferior vena cava. Normal retroperitoneum. A Saldaña catheter is seen in the urinary bladder. Normal abdominal wall. There are degenerative changes of the visualized lumbar spine. Status post left hip replacement. CT/Abdomen/Pelvis without Cont IMPRESSION: Marked degree of colonic distention down to the rectum. Moderate amount of fecal material is seen in the rectum. Jackeline's syndrome should be ruled out. There is evidence of pneumatosis in the bowel wall in the region of the posterior cecum as well as the descending colon. The transverse dimension of the cecum is 18.1 cm. Electronically Signed: Edgard Alejo MD at 10:10 EST Tel [phone], Service support ,
--- NOTE | 2018-03-23 09:11 | NURSING ---
Toribio WEST in room with pt, will order stat CT. Pt frustrated, wants water, support given.
--- NOTE | 2018-03-23 09:24 | NURSING ---
Pt being taken down to CT for scan per order.
[2018-03-23 09:32] LABS: Hematocrit 46.6 % (40-54); Hemoglobin 14.9 g/dl (13.0-16.5); Mean Corpuscular Volume 90.8 fL (80-94); Mean Platelet Vol. 11.3 fl (6.2-12.0); Platelet Count 335 K/mm3 (150-450); RBC Distribution Width CV 13.9 % (11.6-14.6); RBC Distribution Width SD 46.3 fl (35.1-43.9); Red Blood Count 5.13 M/mm3 (4.6-6.2); White Blood Count 17.6 K/mm3 (4.4-11.0)
[2018-03-23 09:36] LABS: Differential Indicated MANUAL DIFF; POSITIVE COUNT YES; POSITIVE DIFFERENTIAL YES; POSITIVE MORPHOLOGY YES
[2018-03-23 10:09] LABS: Lymphocyte 12 % (19-41); Monocyte 8 % (0-10); Myelocyte 1 (0-0); Neutrophil-Segmented 76 % (47-70); Plasma Cell 2 %; Promyelocyte 1 (0-0); Total Cells Counted 100 (MANUAL DIFF)
[2018-03-23 10:10] LABS: Platelet Estimate ADEQUATE (ADEQ); Red Cell Morphology NORM C+C NORMAL (NORM C&C)
[2018-03-23 10:11] LABS: Absolute Lymphocyte Count 2.11 X10^3/ul (0.83-4.51); Absolute Neutrophil Count 13.4 X10^3/uL (2.0-7.7); Lymphocyte # 2.11 X10^3/ul (4.0)
--- NOTE | 2018-03-23 10:16 | ED.RN ---
Pt back from CT scan.
[2018-03-23 10:56] LABS: Bedside Glucose 127 mg/dL (70-110)
[2018-03-23] MEDS: 0.9% NaCl Peripheral Flush Adult/Peds IV ×2 (10:56→11:28)
[2018-03-23] MEDS: Menthol/Lanolin/Calamine/Znox 113 GM Tube 1 APPLIC TOPICAL ×2 (11:19→21:28)
[2018-03-23] MEDS: Furosemide 20 MG/2 ML VIAL IV (11:27)
--- NOTE | 2018-03-23 11:37 | PCM.CONS.GEN ---
Problem List (1) Abdominal distension (gaseous) Status: Acute Reason for Consult Date of Consultation: 03/23/18 Reason for Consultation: Severe colonic distention History of Present Illness: The patient is a 72 year old M who presents with abdominal distention, hypoxia and vomiting. Patient is a poor historian. He was recently hospitalized for right-sided stroke. Per documentation, patient has not had a bowel movement for at least 1 week or more. Patient takes Coumadin at night time. His last dose was on 03/19/18. Denies abdominal pain, nausea, vomiting. CT of ab/pel demonstrates Marked degree of colonic distention down to the rectum. Moderate amount of fecal material is seen in the rectum. Jackeline's syndrome should be ruled out. There is evidence of pneumatosis in the bowel wall in the region of the posterior cecum as well as the descending colon. The transverse dimension of the cecum is 18.1 cm. Past Medical History Past Medical History (Chronic Problems): Chronic Problems Hearing deficit (Chronic) Hypertension (Chronic) Systolic congestive heart failure (Chronic) Aortic stenosis (Chronic) Pulmonary hypertension (Chronic) Ischemic cardiomyopathy (Chronic) Iron deficiency anemia (Chronic) BPH (benign prostatic hyperplasia) (Chronic) Splenomegaly (Chronic) Gallbladder sludge (Chronic) Fatty infiltration of liver (Chronic) Venous stasis ulcers of both lower extremities (Chronic) PAD (peripheral artery disease) (Chronic) Stage III chronic kidney disease (Chronic) Chronic atrial fibrillation (Chronic) Status post coronary artery bypass graft (Chronic) Decubitus ulcer of sacral area (Chronic) Hypothyroidism (Chronic) CVA (cerebral vascular accident) (Chronic) CAD (coronary artery disease) (Chronic) Allergies latex Allergy (Verified 03/20/18 14:39) Rash LEEANN Inhibitors Adverse Reaction (Verified 03/20/18 14:39) Other Home Medications: Ambulatory Orders Medication Instructions Recorded Carvedilol [Coreg (Beta Kaycee)] 12.5 mg PO BID 10/28/16 Levothyroxine [Synthroid] 88 mcg PO DAILY 10/28/16 Tamsulosin HCl [Flomax] 0.4 mg PO QHS 10/28/16 Sertraline HCl [Zoloft] 50 mg PO DAILY 07/21/17 Furosemide [Lasix] 20 mg PO DAILY #30 tab 12/04/17 Potassium Chloride [K-Dur] 40 meq PO BIDCM #60 tablet 03/18/18 Amiodarone HCl 200 mg PO DAILY 03/20/18 Aspirin E.C. [Ecotrin] 81 mg PO DAILY@0800 03/20/18 Atorvastatin Calcium 40 mg PO QHS 03/20/18 Losartan Potassium 25 mg PO DAILY 03/20/18 Metformin(XR) [Glucophage Xr] 500 mg PO DAILY 03/20/18 Potassium Chloride 40 meq PO BID 03/20/18 Quetiapine Fumarate [Seroquel] 25 mg PO QHS 03/20/18 Warfarin [Coumadin] 3 mg PO DINNER 03/20/18 Surgical History: coronary bypass surgery, total hip arthroplasty - Left; bilateral carotid endarterectomy, - - Bilateral carotid endarterectomy, bilateral lower extremity stents secondary to peripheral arterial disease Psychiatric History: Depression Smoking Status: Unknown if ever smoked Tobacco Use: Cigarettes - *Family History Maternal History Items: - - Patient's mother at age of 75 with a history of cerebrovascular accident. Paternal History Items: - - Patient's father at the age of 70 from a myocardial infarction. Review of Systems Constitutional: Denies: Chills, Fever, Weight Change HEENT: Reports: Difficulty Hearing Cardiovascular: Denies: Chest Pain, Palpitations Respiratory: Reports: Cough, Shortness of Breath Gastrointestinal: Reports: Vomiting, - - obstipation. Denies: Abdominal Pain Genitourinary: Denies: Dysuria Musculoskeletal: Denies: Joint Pain, Joint Tenderness Skin: Reports: Dryness Neurological: Denies: Numbness, Tingling, Focal weakness Psychiatric: Denies: Anxiety, Depression, Homicidal Ideations, Suicidal Ideations Hematologic/ Lymphatic: Reports: Easy Bruising, Easy Bleeding Patient Problems: Active and Suspected Problems Aspiration pneumonitis (Acute) Abdominal distension (gaseous) (Acute) - Physical Exam General: Alert, Cooperative HEENT: Atraumatic, Normocephalic Neck: Supple, No JVD, Negative Carotid Bruits Lungs: Diminished - bilateral Cardiovascular: Regular rate, No murmurs Abdomen: Non Tender, Hypoactive Bowel Sounds, Distended - severely distended Extremities: No edema, Capillary Refill Less than 3 Seconds Skin: Ulcer/ Wound - decubitus ulcer Musculoskeletal: No Tenderness to Palpation of Joints or Extremities Neurological: Neuro grossly intact Psych/Mental Status: Normal Affect, Appropriate Vital Signs Temp Pulse Resp BP Pulse Ox 98.2 F 88 20 H 137/90 H 93 03/23/18 08:40 03/23/18 11:05 03/23/18 11:05 03/23/18 08:40 03/23/18 08:51 Oxygen Flow Rate (L/min) 3 Oxygen Delivery Method Nasal Cannula Weight: 188 lb 4.396 oz Body Mass Index (BMI) 24.1 Finger Stick Blood Glucose 105 Intake and Output for Last 24 Hours 03/21/18 03/22/18 03/23/18 23:59 23:59 23:59 Intake Total 2548 / 2548 862 / 862 1146 / 1146 Output Total 250 / 250 500 / 500 1250 / 1250 Balance 2298 / 2298 362 / 362 -104 / -104 Microbiology Past 72 Hours 03/20/18 15:03 Blood Culture - Preliminary Blood Culture (Wb) - Left Forearm No growth in 48 hours. 03/20/18 14:45 Blood Culture - Preliminary Blood Culture (Wb) - Anticubital Left No growth in 48 hours. 03/20/18 16:10 Urine Culture - Final Urine, Catheterized Presumptive E. coli Laboratory Tests Past 24 Hrs 03/23/18 03/23/18 03/23/18 06:00 06:00 06:00 WBC 17.6 H RBC 5.13 Hgb 14.9 Hct 46.6 MCV 90.8 MCH 29.0 MCHC 32.0 RDW 13.9 RDW Differential 46.3 H Plt Count 335 MPV 11.3 Neut % (Auto) Not Reportable Absolute Neuts (auto) 13.4 H Absolute Lymphs (auto) 2.11 Total Counted 100 Neutrophils % (Manual) 76 H Lymphocytes % (Manual) 12 L Monocytes % (Manual) 8 Myelocytes % 1 H Promyelocytes % 1 H Plasma Cell % (Manual) 2 Diff Path Review May foll Platelet Estimate ADEQUATE RBC Morphology NORM C+C PT 13.6 INR 1.0 Sodium 140 Potassium 3.4 L Chloride 103 Carbon Dioxide 26.0 Anion Gap 11 BUN 42 H Creatinine 1.36 H Estim Creat Clear Calc 57.08 Est GFR (MDRD) Af Amer 66 Est GFR (MDRD) Non-Af 55 L BUN/Creatinine Ratio 30.9 H Glucose 132 H Calcium 9.0 POC Glucose 03/23/18 03/23/18 03/22/18 10:51 06:49 21:48 POC Glucose 127 H 133 H 103 03/22/18 03/22/18 16:00 11:19 POC Glucose 111 H 114 H Assessment/Plan All Active Problems Aspiration pneumonitis (Acute) Abdominal distension (gaseous) (Acute) Bilateral leg ulcer (Resolved) GI bleeding (Resolved) I am seeing this patient in conjunction with Dr. Saleem Impression: Abdominal distention. Plan: Discussed patient with Dr. Saleem. Dr. Saleem will plan to perform a depressive colonoscopy later today. Procedure details, risks and benefits were explained to the patient. I have tried to call the and daughter without any answer. We will keep the patient NPO. Discussed with hospitalist. Patient appears very ill. Mortality rate is increased with this procedure secondary to his past medical history. Thank you for allowing us to participate in this patient's care. Code Visit Office Visits / Consults: [id number] IP Consult L4
[2018-03-23] MEDS: Piperacil/Tazobactam 3.375 GM/50 ML ML IV ×2 (11:55→21:28)
--- NOTE | 2018-03-23 12:09 | NURSING ---
Family at bedside. Dr. Saleem here to see pt and family. Plan to take pt to ENDO around 3pm to do bowel decompression. Pt started on Potassium and Zosyn IV per order.
--- NOTE | 2018-03-23 13:35 | PCM.PROGNOTE ---
<Toribio Lott - Last Filed: 03/23/18 13:35> Patient Problems: Active and Suspected Problems Aspiration pneumonitis (Acute) Abdominal distension (gaseous) (Acute) Subjective: Pt a/o x1 at baseline 2/2 stroke, Most of subjective information obtained from nursing and family. He has had worsening distention since arrival with no BM. He expresses pain when abdomen is pushed on. He has not been nauseous or vomiting. He has not moved his bowels despite about 8 doses or laxatives. He also seems to have wet respirations, very audibly. He has been evaluated in the past for PEG tube placement, and has issues swallowing in the past but was able to later pass speech evals and did not have one placed. He has had severe constipation and distention in the past but has never required decompression. He will go for a colonoscopy at 3 pm for decompression with Dr. Saleem today, family is agreeable. - Physical Exam General: Alert, Cooperative, Confused HEENT: Atraumatic, PERRLA, EOMI, Normocephalic Neck: Supple, No JVD, Negative Carotid Bruits Lungs: Rales Cardiovascular: Regular rate, No murmurs Abdomen: Hypoactive Bowel Sounds, Distended, Tender Extremities: No edema, Capillary Refill Less than 3 Seconds Skin: No rashes, No breakdown Musculoskeletal: No Tenderness to Palpation of Joints or Extremities Neurological: Cranial nerves II-XII grossly intact Psych/Mental Status: Restless Vital Signs Temp Pulse Resp BP Pulse Ox 97.3 F L 71 20 H 126/85 H 93 03/23/18 12:18 03/23/18 12:18 03/23/18 12:18 03/23/18 12:18 03/23/18 12:18 Oxygen Flow Rate (L/min) 3 Oxygen Delivery Method Nasal Cannula Weight: 188 lb 4.396 oz Body Mass Index (BMI) 24.1 Finger Stick Blood Glucose 105 Intake and Output for Last 24 Hours 03/21/18 03/22/18 03/23/18 23:59 23:59 23:59 Intake Total 2548 / 2548 862 / 862 1146 / 1146 Output Total 250 / 250 500 / 500 1250 / 1250 Balance 2298 / 2298 362 / 362 -104 / -104 Microbiology Past 72 Hours 03/20/18 15:03 Blood Culture - Preliminary Blood Culture (Wb) - Left Forearm No growth in 48 hours. 03/20/18 14:45 Blood Culture - Preliminary Blood Culture (Wb) - Anticubital Left No growth in 48 hours. 03/20/18 16:10 Urine Culture - Final Urine, Catheterized Presumptive E. coli Laboratory Tests Past 24 Hrs 03/23/18 03/23/18 03/23/18 06:00 06:00 06:00 WBC 17.6 H RBC 5.13 Hgb 14.9 Hct 46.6 MCV 90.8 MCH 29.0 MCHC 32.0 RDW 13.9 RDW Differential 46.3 H Plt Count 335 MPV 11.3 Neut % (Auto) Not Reportable Absolute Neuts (auto) 13.4 H Absolute Lymphs (auto) 2.11 Total Counted 100 Neutrophils % (Manual) 76 H Lymphocytes % (Manual) 12 L Monocytes % (Manual) 8 Myelocytes % 1 H Promyelocytes % 1 H Plasma Cell % (Manual) 2 Diff Path Review May foll Platelet Estimate ADEQUATE RBC Morphology NORM C+C PT 13.6 INR 1.0 Sodium 140 Potassium 3.4 L Chloride 103 Carbon Dioxide 26.0 Anion Gap 11 BUN 42 H Creatinine 1.36 H Estim Creat Clear Calc 57.08 Est GFR (MDRD) Af Amer 66 Est GFR (MDRD) Non-Af 55 L BUN/Creatinine Ratio 30.9 H Glucose 132 H Calcium 9.0 POC Glucose 03/23/18 03/23/18 03/22/18 10:51 06:49 21:48 POC Glucose 127 H 133 H 103 03/22/18 16:00 POC Glucose 111 H Medical Necessity - Tobacco Use Smoking Status: Unknown if ever smoked Tobacco Use: Cigarettes Assessment/Plan All Active Problems Aspiration pneumonitis (Acute) Abdominal distension (gaseous) (Acute) Bilateral leg ulcer (Resolved) GI bleeding (Resolved) 1. Abdominal distention with pneumatosis, stool in rectum - colonoscopy with decompression today with Dr. Saleem 2. Aspiration pna - increased WBCs today, with rales, opacities seen on CT today. Change abx to zosyn. Speech therapy evals. Afebrile. 3. Chronic Afib - rate controlled. warfarin held. 4. Chronic systolic CHF, ischemic CM - lasix held. IV fluids being given. 5. CAD with prior CABG - asa, statin, arb (hold), coreg 6. 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 7. Dysphagia - ST evals. 8. Hypothyroidism - synthroid 9. BPH - flomax 10. DMt2 - metformin held, SSI. 11. HTN - hold arb with creatinine going up. 12. Anxiety - SSRI DVT ppx: warfarin on hold. SCDs DC planning: not capable of going to SNF due to hx of behavioral issues This patient was seen by Torbiio Lott PA-C under the supervision of Doctor Cruzito. <Mike East - Last Filed: 03/23/18 16:39> Subjective: Seen and examined. Patient in extreme distress secondary to abdominal distention. CT imaging reviewed and discussed with the patient. Shows colonic air distention mainly at cecum, 18.1 cm in transverse dimension - Physical Exam Vital Signs Temp Pulse Resp BP Pulse Ox 97.9 F 85 16 122/56 H 96 03/23/18 16:20 03/23/18 16:20 03/23/18 16:20 03/23/18 16:20 03/23/18 16:20 Oxygen Flow Rate (L/min) 3 Oxygen Delivery Method Nasal Cannula Weight: 188 lb 4.396 oz Body Mass Index (BMI) 24.1 Finger Stick Blood Glucose 105 Intake and Output for Last 24 Hours 03/21/18 03/22/18 03/23/18 23:59 23:59 23:59 Intake Total 2548 / 2548 862 / 862 1346 / 1346 Output Total 250 / 250 500 / 500 1600 / 1600 Balance 2298 / 2298 362 / 362 -254 / -254 Microbiology Past 72 Hours 03/20/18 15:03 Blood Culture - Preliminary Blood Culture (Wb) - Left Forearm No growth in 48 hours. 03/20/18 14:45 Blood Culture - Preliminary Blood Culture (Wb) - Anticubital Left No growth in 48 hours. 03/20/18 16:10 Urine Culture - Final Urine, Catheterized Presumptive E. coli Laboratory Tests Past 24 Hrs 03/23/18 03/23/18 03/23/18 06:00 06:00 06:00 WBC 17.6 H RBC 5.13 Hgb 14.9 Hct 46.6 MCV 90.8 MCH 29.0 MCHC 32.0 RDW 13.9 RDW Differential 46.3 H Plt Count 335 MPV 11.3 Neut % (Auto) Not Reportable Absolute Neuts (auto) 13.4 H Absolute Lymphs (auto) 2.11 Total Counted 100 Neutrophils % (Manual) 76 H Lymphocytes % (Manual) 12 L Monocytes % (Manual) 8 Myelocytes % 1 H Promyelocytes % 1 H Plasma Cell % (Manual) 2 Diff Path Review May foll Platelet Estimate ADEQUATE RBC Morphology NORM C+C PT 13.6 INR 1.0 Sodium 140 Potassium 3.4 L Chloride 103 Carbon Dioxide 26.0 Anion Gap 11 BUN 42 H Creatinine 1.36 H Estim Creat Clear Calc 57.08 Est GFR (MDRD) Af Amer 66 Est GFR (MDRD) Non-Af 55 L BUN/Creatinine Ratio 30.9 H Glucose 132 H Calcium 9.0 POC Glucose 03/23/18 03/23/18 03/22/18 10:51 06:49 21:48 POC Glucose 127 H 133 H 103 Assessment/Plan This patient was seen in conjunction with Toribio WEST. I have independently interviewed and examined the patient and reviewed pertinent history, examination findings, laboratory and plan of management. I have reviewed the note and agree with the documented findings with the few additional points. In brief, patient is admitted for CT abdomen shows markedly distended colon down to the rectum with moderate amount of fecal material in the rectosigmoid colon. 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 Patient needs urgent colonic decompression by colonoscopy. This was discussed with Dr. Saleem and surgical Allyssa WEST and is scheduled for 3 PM. Patient is high risk for anesthesia but this is urgent/emergent procedure. CT abdomen also shows bibasilar infiltrates, superimposed on chronic scarring and bronchiectasis worse at the left lung base. Antibiotic upgraded to Zosyn. I have discussed my assessment with Toribio WEST and orders have been reviewed. Code Visit Inpatient E&M: 09833 Subs Hosp L3
--- NOTE | 2018-03-23 14:16 | NURSING ---
Pt transported off the unit for procedure. Family at bedside. Report called to Maggie GOLDSTEIN in [facility].
--- NOTE | 2018-03-23 15:32 | OP.ENDO_ITS ---
03/23/2018 Donnie Marrero [address] [id number] Re : Colonoscopy procedure for Kiko Valles Dear Dr. Marrero This procedure was performed on Friday, March 23, 2018. My impressions and recommendations are as follows: Impressions : - Dilated in the entire examined colon. - No specimens collected. Recommendations : - Return patient to [facility] for [facility] care. - Resume previous diet. - Continue present medications. - Repeat colonoscopy at appointment to be scheduled because the bowel preparation was poor. - Return to my office in 1 week. My findings are described in the full procedure note, which is enclosed. If I can be of further assistance, please feel free to contact me at Doctor phone number(s): , Fax: [phone], Work: . Sincerely, MD Delmar Khalil MD 03/23/2018 3:31:43 PM This report has been signed electronically.
--- NOTE | 2018-03-23 16:16 | NURSING ---
Pt returned from procedure, tolerated well.
[2018-03-23 17:31] LABS: Bedside Glucose 121 mg/dL (70-110)
--- NOTE | 2018-03-23 18:20 | NURSING ---
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
[2018-03-23 21:55] LABS: Bedside Glucose 116 mg/dL (70-110)
[2018-03-24] VITALS (15 sets, daily range): BP systolic 113–152; BP diastolic 54–69; PULSE 62–76; RESP 16–24; TEMP 36.3–36.8; O2SAT 97–100
[2018-03-24] MEDS: Piperacil/Tazobactam 3.375 GM/50 ML ML IV ×3 (05:02→22:13)
--- NOTE | 2018-03-24 06:41 | PCM.PN.SRG ---
Patient Problems: Active and Suspected Problems Aspiration pneumonitis (Acute) Abdominal distension (gaseous) (Acute) Subjective: Patient evaluated sleeping comfortably in bed. He is more lethargic this morning. Per nursing staff, no nausea, vomiting. Negative bowel movement over night. Uneventful night. Decompressive colonoscopy was successful. - Physical Exam General: Lethargic Abdomen: Soft, Hypoactive Bowel Sounds, Distended - moderately, - - Abdomen is soft. Much less distended than yesterday. Vital Signs Temp Pulse Resp BP Pulse Ox 97.8 F 63 20 H 152/57 H 100 03/24/18 02:06 03/24/18 03:09 03/24/18 02:06 03/24/18 02:06 03/24/18 02:06 Oxygen Flow Rate (L/min) 2 Oxygen Delivery Method Nasal Cannula Weight: 188 lb 4.396 oz Body Mass Index (BMI) 24.1 Finger Stick Blood Glucose 105 Intake and Output for Last 24 Hours 03/22/18 03/23/18 03/24/18 23:59 23:59 23:59 Intake Total 862 / 862 2070 / 2070 552 / 552 Output Total 500 / 500 2200 / 2200 300 / 300 Balance 362 / 362 -130 / -130 252 / 252 Microbiology Past 72 Hours 03/20/18 15:03 Blood Culture - Preliminary Blood Culture (Wb) - Left Forearm No growth in 48 hours. 03/20/18 14:45 Blood Culture - Preliminary Blood Culture (Wb) - Anticubital Left No growth in 48 hours. 03/20/18 16:10 Urine Culture - Final Urine, Catheterized Presumptive E. coli Laboratory Tests Past 24 Hrs 03/23/18 03/23/18 03/24/18 06:00 06:00 05:30 WBC 17.6 H RBC 5.13 Hgb 14.9 Hct 46.6 MCV 90.8 MCH 29.0 MCHC 32.0 RDW 13.9 RDW Differential 46.3 H Plt Count 335 MPV 11.3 Neut % (Auto) Not Reportable Absolute Neuts (auto) 13.4 H Absolute Lymphs (auto) 2.11 Total Counted 100 Neutrophils % (Manual) 76 H Lymphocytes % (Manual) 12 L Monocytes % (Manual) 8 Myelocytes % 1 H Promyelocytes % 1 H Plasma Cell % (Manual) 2 Diff Path Review May foll Platelet Estimate ADEQUATE RBC Morphology NORM C+C PT 13.6 Cancelled INR 1.0 Cancelled Sodium Potassium Chloride Carbon Dioxide Anion Gap BUN Creatinine Estim Creat Clear Calc Est GFR (MDRD) Af Amer Est GFR (MDRD) Non-Af BUN/Creatinine Ratio Glucose Calcium Total Bilirubin AST ALT Alkaline Phosphatase Total Protein Albumin Globulin Albumin/Globulin Ratio 03/24/18 03/24/18 05:30 05:30 WBC Pending RBC Pending Hgb Pending Hct Pending MCV Pending MCH Pending MCHC Pending RDW Pending RDW Differential Pending Plt Count Pending MPV Neut % (Auto) Pending Absolute Neuts (auto) Pending Absolute Lymphs (auto) Total Counted Pending Neutrophils % (Manual) Lymphocytes % (Manual) Monocytes % (Manual) Myelocytes % Promyelocytes % Plasma Cell % (Manual) Diff Path Review Platelet Estimate RBC Morphology PT INR Sodium 146 H Potassium 2.5 L* Chloride 113 H Carbon Dioxide 27.0 Anion Gap 6 BUN 18 Creatinine 1.04 Estim Creat Clear Calc 74.65 Est GFR (MDRD) Af Amer 90 Est GFR (MDRD) Non-Af 74 BUN/Creatinine Ratio 17.3 Glucose 96 Calcium 7.4 L Total Bilirubin 0.50 AST 13 L ALT 12 L Alkaline Phosphatase 76 Total Protein 6.2 L Albumin 2.0 L Globulin 4.2 Albumin/Globulin Ratio 0.5 L POC Glucose 03/23/18 03/23/18 03/23/18 21:33 17:25 10:51 POC Glucose 116 H 121 H 127 H 03/23/18 06:49 POC Glucose 133 H Medical Necessity - Tobacco Use Smoking Status: Unknown if ever smoked Tobacco Use: Cigarettes Assessment/Plan All Active Problems Aspiration pneumonitis (Acute) Abdominal distension (gaseous) (Acute) Bilateral leg ulcer (Resolved) GI bleeding (Resolved) I am following this patient in conjunction with Dr. Saleem Impression: Jackeline's syndrome. Abdomen less distended this morning and softer. Colonoscopy was successful We will continue to closely monitor this patient Diet will need to be assessed by medicine. Patient may need repeat speech evaluation Code Visit Inpatient E&M: 67461 Subs Hosp L1
[2018-03-24 06:50] LABS: Bedside Glucose 102 mg/dL (70-110)
[2018-03-24] MEDS: Ipratropium/Albuterol Sulfate 3 ML AMPUL.NEB INHALATION ×4 (07:00→19:00)
[2018-03-24 07:03] LABS: International Normalized Ratio 7.6; Prothrombin Time (Protime)PT. 65.1 SECONDS (11.7-14.9)
[2018-03-24 07:07] LABS: Absolute Lymphocyte Count 1.06 X10^3/ul (0.83-4.51); Absolute Neutrophil Count 8.7 X10^3/uL (2.0-7.7); Basophil# 0.05 X10^3/uL; Basophil% 0.4 % (0-1); Eosinophil# 0.22 X10^3/uL; Eosinophils% 1.9 % (0-5); Hematocrit 32.7 % (40-54); Lymphocyte # 1.06 X10^3/ul (4.0); Lymphocyte % 9.1 % (19-41); Mean Corp Hgb Conc 30.6 g/gl (32-36); Mean Corpuscular Hgb 28.2 pg (27.0-32.0); Mean Corpuscular Volume 92.1 fL (80-94); Mean Platelet Vol. 8.8 fl (6.2-12.0); Monocyte# 1.51 X10^3/uL; Neutrophil # 8.73 X10^3/uL (2.7-7.7); Neutrophil % 75.1 % (47-70); Platelet Count 240 K/mm3 (150-450); RBC Distribution Width CV 15.8 % (11.6-14.6); Red Blood Count 3.55 M/mm3 (4.6-6.2); White Blood Count 11.6 K/mm3 (4.4-11.0)
[2018-03-24 07:10] LABS: ALB/GLOB Ratio 0.5 RATIO (0.9-2.4); AST(SGOT) 14 U/L (15-37); Alanine Aminotransfer ALT/SGPT 15 U/L (16-61); Albumin, Serum 2.1 g/dL (3.2-5.0); Alkaline Phosphatase 77 U/L (45-117); Anion Gap 9 (5-15); BUN 17 mg/dL (7-18); BUN/Creat Ratio 15.9 RATIO (10-20); Calcium,Total 7.6 mg/dL (8.5-10.1); Chloride 113 mmol/L (98-107); Creatinine, Serum 1.07 mg/dL (0.70-1.30); Differential Indicated SCAN CRITERIA MET; EST Glomerular Filtration Rate 72 mL/min (>60); Est Glom Filt Rate - Afr Amer 87 mL/min (>60); Estimated Creatinine Clearance 72.55 ml/min; Globulin 4.2 g/dL (2.2-4.2); Glucose 98 mg/dL (74-106); POSITIVE COUNT NO; POSITIVE DIFFERENTIAL YES; POSITIVE MORPHOLOGY NO; Potassium 2.5 mmol/L (3.5-5.1); Protein, Total 6.3 g/dL (6.4-8.2); Sodium Level 149 mmol/L (136-145)
--- NOTE | 2018-03-24 07:10 | NURSING ---
Lab phones with critical K 2.5. Primary nurse made aware.
[2018-03-24] MEDS: Potassium Chloride 40 MEQ in 0.45% Normal Saline 1,000 ML 75 MEQ IV ×2 (10:12→23:23)
[2018-03-24] MEDS: Menthol/Lanolin/Calamine/Znox 113 GM Tube 1 APPLIC TOPICAL ×2 (12:18→22:14)
--- NOTE | 2018-03-24 12:21 | NURSING ---
Pts family at bedside, ST saw pt and said he could have pureed/honey thickened liquids/foods. Call light within reach.
--- NOTE | 2018-03-24 12:57 | PN_ITS ---
<Toribio Lott - Last Filed: 03/24/18 12:52> Patient Problems: Active and Suspected Problems Aspiration pneumonitis (Acute) Abdominal distension (gaseous) (Acute) Subjective: Pt lethargic. Not answering questions. Opens eyes then goes back to sleep. - Physical Exam General: Alert, Oriented x3, Cooperative HEENT: Atraumatic, PERRLA, EOMI, Normocephalic Neck: Supple, No JVD, Negative Carotid Bruits Lungs: Diminished, Rales Cardiovascular: Regular rate, No murmurs Abdomen: Soft, Hypoactive Bowel Sounds, Tender - RLQ tenderness (grimace), - - distention improved. Extremities: No edema, Capillary Refill Less than 3 Seconds Skin: No rashes, No breakdown Musculoskeletal: No Tenderness to Palpation of Joints or Extremities Neurological: Cranial nerves II-XII grossly intact Psych/Mental Status: Normal Affect, Appropriate Vital Signs Temp Pulse Resp BP Pulse Ox 97.4 F L 75 16 119/66 99 03/24/18 07:53 03/24/18 11:19 03/24/18 11:19 03/24/18 07:53 03/24/18 07:53 Oxygen Flow Rate (L/min) 2 Oxygen Delivery Method Nasal Cannula Weight: 188 lb 4.396 oz Body Mass Index (BMI) 24.1 Finger Stick Blood Glucose 105 Intake and Output for Last 24 Hours 03/22/18 03/23/18 03/24/18 23:59 23:59 23:59 Intake Total 862 / 862 2070 / 2070 632 / 632 Output Total 500 / 500 2200 / 2200 600 / 600 Balance 362 / 362 -130 / -130 32 / 32 Microbiology Past 72 Hours 03/20/18 15:03 Blood Culture - Preliminary Blood Culture (Wb) - Left Forearm No growth in 48 hours. 03/20/18 14:45 Blood Culture - Preliminary Blood Culture (Wb) - Anticubital Left No growth in 48 hours. 03/20/18 16:10 Urine Culture - Final Urine, Catheterized Presumptive E. coli Laboratory Tests Past 24 Hrs 03/24/18 03/24/18 03/24/18 05:30 05:30 05:30 WBC Cancelled Corrected WBC Cancelled RBC Cancelled Hgb Cancelled Hct Cancelled MCV Cancelled MCH Cancelled MCHC Cancelled RDW Cancelled RDW Differential Cancelled Plt Count Cancelled MPV Cancelled Immature Gran % (Auto) Cancelled Neut % (Auto) Cancelled Lymph % (Auto) Cancelled [place] % (Auto) Cancelled Eos % (Auto) Cancelled Baso % (Auto) Cancelled Absolute Neuts (auto) Cancelled Absolute Lymphs (auto) Cancelled Total Counted Cancelled Neutrophils % (Manual) Cancelled Band Neutrophils % Cancelled Lymphocytes % (Manual) Cancelled Monocytes % (Manual) Cancelled Eosinophils % (Manual) Cancelled Basophils % (Manual) Cancelled Metamyelocytes % Cancelled Myelocytes % Cancelled Promyelocytes % Cancelled Blast Cells % Cancelled Plasma Cell % (Manual) Cancelled Other Cells % Cancelled Nucleated RBCs/100 WBC Cancelled Differential Comment Cancelled Diff Path Review Cancelled Hypersegmented Neuts Cancelled Atypical Lymphocytes Cancelled Reactive Lymphocytes Cancelled Smudge Cells Cancelled Toxic Granulation Cancelled Dohle Bodies Cancelled Hector Rods Cancelled Platelet Estimate Cancelled Plt Morphology Comment Cancelled RBC Morphology Cancelled Polychromasia Cancelled Hypochromasia Cancelled Poikilocytosis Cancelled Basophilic Stippling Cancelled Anisocytosis Cancelled Microcytosis Cancelled Macrocytosis Cancelled Spherocytes Cancelled Sickle Cells Cancelled Target Cells Cancelled Tear Drop Cells Cancelled Ovalocytes Cancelled Stomatocytes Cancelled [place] Bodies Cancelled Spring Cells Cancelled Bite Cells Cancelled Acanthocytes (Spur) Cancelled Rouleaux Cancelled Schistocytes Cancelled PT Cancelled INR Cancelled Sodium Cancelled Potassium Cancelled Chloride Cancelled Carbon Dioxide Cancelled Anion Gap Cancelled BUN Cancelled Creatinine Cancelled Estim Creat Clear Calc Cancelled Est GFR (MDRD) Af Amer Cancelled Est GFR (MDRD) Non-Af Cancelled BUN/Creatinine Ratio Cancelled Glucose Cancelled Calcium Cancelled Total Bilirubin Cancelled AST Cancelled ALT Cancelled Alkaline Phosphatase Cancelled Total Protein Cancelled Albumin Cancelled Globulin Cancelled Albumin/Globulin Ratio Cancelled 03/24/18 03/24/18 03/24/18 06:35 06:35 06:35 WBC 11.6 H Corrected WBC RBC 3.55 L Hgb 10.0 L Hct 32.7 L MCV 92.1 MCH 28.2 MCHC 30.6 L RDW 15.8 H RDW Differential 53.0 H Plt Count 240 MPV 8.8 Immature Gran % (Auto) 0.500 Neut % (Auto) 75.1 H Lymph % (Auto) 9.1 L [place] % (Auto) 13.0 H Eos % (Auto) 1.9 Baso % (Auto) 0.4 Absolute Neuts (auto) 8.7 H Absolute Lymphs (auto) 1.06 Total Counted Not Reportable Neutrophils % (Manual) Band Neutrophils % Lymphocytes % (Manual) Monocytes % (Manual) Eosinophils % (Manual) Basophils % (Manual) Metamyelocytes % Myelocytes % Promyelocytes % Blast Cells % Plasma Cell % (Manual) Other Cells % Nucleated RBCs/100 WBC Differential Comment Diff Path Review Hypersegmented Neuts Atypical Lymphocytes Reactive Lymphocytes Smudge Cells Toxic Granulation Dohle Bodies Hector Rods Platelet Estimate Plt Morphology Comment RBC Morphology Polychromasia Hypochromasia Poikilocytosis Basophilic Stippling Anisocytosis Microcytosis Macrocytosis Spherocytes Sickle Cells Target Cells Tear Drop Cells Ovalocytes Stomatocytes [place] Bodies Spring Cells Bite Cells Acanthocytes (Spur) Rouleaux Schistocytes PT 65.1 H INR 7.6 H* Sodium 149 H Potassium 2.5 L* Chloride 113 H Carbon Dioxide 27.0 Anion Gap 9 BUN 17 Creatinine 1.07 Estim Creat Clear Calc 72.55 Est GFR (MDRD) Af Amer 87 Est GFR (MDRD) Non-Af 72 BUN/Creatinine Ratio 15.9 Glucose 98 Calcium 7.6 L Total Bilirubin 0.50 AST 14 L ALT 15 L Alkaline Phosphatase 77 Total Protein 6.3 L Albumin 2.1 L Globulin 4.2 Albumin/Globulin Ratio 0.5 L POC Glucose 03/24/18 03/23/18 03/23/18 06:47 21:33 17:25 POC Glucose 102 116 H 121 H Medical Necessity - Tobacco Use Smoking Status: Unknown if ever smoked Tobacco Use: Cigarettes Assessment/Plan All Active Problems Aspiration pneumonitis (Acute) Abdominal distension (gaseous) (Acute) Bilateral leg ulcer (Resolved) GI bleeding (Resolved) 1. Abdominal distention with pneumatosis, stool in rectum - colonoscopy yesterday with dr. Saleem. This is a recurrent problem. Probably ogilvies. Appears improved after decompression yesterday. Likely to recur. Pt would be hospice appropriate. 2. Aspiration pna - WBC improved. No fever. Lung sounds improved. Continue zosyn. Speech therapy evals. Pt would be a poor candidate for PEG tube. 3. Chronic Afib - rate controlled. warfarin held. INR went up despite being held. Will trend. 4. Chronic systolic CHF, ischemic CM - lasix held. IV fluids being given. 5. Electrolyte imbalances - 0.45 NS with KCl to be infused. Check Mag/Phos. 6. CAD with prior CABG - asa, statin, arb (hold), coreg 7. 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 8. Dysphagia - ST evals. 9. Hypothyroidism - synthroid 10. BPH - flomax 11. DMt2 - metformin held, SSI. 12. HTN - hold arb with creatinine going up. 13. Anxiety - SSRI DVT ppx: warfarin on hold. SCDs DC planning: Pt hospice appropriate. Will discuss with family when present. This patient was seen by Toribio Lott PA-C under the supervision of Doctor Cruzito. <Mike East - Last Filed: 03/24/18 14:11> Subjective: Patient restless and asking for water to drink. Feels very thirsty. Concern for aspiration pneumonia. Speech/swallow evaluation requested. - Physical Exam Vital Signs Temp Pulse Resp BP Pulse Ox 98 F 62 18 121/55 H 97 03/24/18 13:47 03/24/18 13:47 03/24/18 13:47 03/24/18 13:47 03/24/18 13:47 Oxygen Flow Rate (L/min) 2 Oxygen Delivery Method Nasal Cannula Weight: 188 lb 4.396 oz Body Mass Index (BMI) 24.1 Finger Stick Blood Glucose 105 Intake and Output for Last 24 Hours 03/22/18 03/23/18 03/24/18 23:59 23:59 23:59 Intake Total 862 / 862 2070 / 2070 632 / 632 Output Total 500 / 500 2200 / 2200 600 / 600 Balance 362 / 362 -130 / -130 32 / 32 Microbiology Past 72 Hours 03/20/18 15:03 Blood Culture - Preliminary Blood Culture (Wb) - Left Forearm No growth in 48 hours. 03/20/18 14:45 Blood Culture - Preliminary Blood Culture (Wb) - Anticubital Left No growth in 48 hours. 03/20/18 16:10 Urine Culture - Final Urine, Catheterized Presumptive E. coli Laboratory Tests Past 24 Hrs 0103/24/18 03/24/18 05:30 05:30 05:30 WBC Cancelled Corrected WBC Cancelled RBC Cancelled Hgb Cancelled Hct Cancelled MCV Cancelled MCH Cancelled MCHC Cancelled RDW Cancelled RDW Differential Cancelled Plt Count Cancelled MPV Cancelled Immature Gran % (Auto) Cancelled Neut % (Auto) Cancelled Lymph % (Auto) Cancelled [place] % (Auto) Cancelled Eos % (Auto) Cancelled Baso % (Auto) Cancelled Absolute Neuts (auto) Cancelled Absolute Lymphs (auto) Cancelled Total Counted Cancelled Neutrophils % (Manual) Cancelled Band Neutrophils % Cancelled Lymphocytes % (Manual) Cancelled Monocytes % (Manual) Cancelled Eosinophils % (Manual) Cancelled Basophils % (Manual) Cancelled Metamyelocytes % Cancelled Myelocytes % Cancelled Promyelocytes % Cancelled Blast Cells % Cancelled Plasma Cell % (Manual) Cancelled Other Cells % Cancelled Nucleated RBCs/100 WBC Cancelled Differential Comment Cancelled Diff Path Review Cancelled Hypersegmented Neuts Cancelled Atypical Lymphocytes Cancelled Reactive Lymphocytes Cancelled Smudge Cells Cancelled Toxic Granulation Cancelled Dohle Bodies Cancelled Hector Rods Cancelled Platelet Estimate Cancelled Plt Morphology Comment Cancelled RBC Morphology Cancelled Polychromasia Cancelled Hypochromasia Cancelled Poikilocytosis Cancelled Basophilic Stippling Cancelled Anisocytosis Cancelled Microcytosis Cancelled Macrocytosis Cancelled Spherocytes Cancelled Sickle Cells Cancelled Target Cells Cancelled Tear Drop Cells Cancelled Ovalocytes Cancelled Stomatocytes Cancelled [place] Bodies Cancelled Spring Cells Cancelled Bite Cells Cancelled Acanthocytes (Spur) Cancelled Rouleaux Cancelled Schistocytes Cancelled PT Cancelled INR Cancelled Sodium Cancelled Potassium Cancelled Chloride Cancelled Carbon Dioxide Cancelled Anion Gap Cancelled BUN Cancelled Creatinine Cancelled Estim Creat Clear Calc Cancelled Est GFR (MDRD) Af Amer Cancelled Est GFR (MDRD) Non-Af Cancelled BUN/Creatinine Ratio Cancelled Glucose Cancelled Calcium Cancelled Phosphorus Magnesium Total Bilirubin Cancelled AST Cancelled ALT Cancelled Alkaline Phosphatase Cancelled Total Protein Cancelled Albumin Cancelled Globulin Cancelled Albumin/Globulin Ratio Cancelled 03/24/18 03/24/18 03/24/18 06:35 06:35 06:35 WBC 11.6 H Corrected WBC RBC 3.55 L Hgb 10.0 L Hct 32.7 L MCV 92.1 MCH 28.2 MCHC 30.6 L RDW 15.8 H RDW Differential 53.0 H Plt Count 240 MPV 8.8 Immature Gran % (Auto) 0.500 Neut % (Auto) 75.1 H Lymph % (Auto) 9.1 L [place] % (Auto) 13.0 H Eos % (Auto) 1.9 Baso % (Auto) 0.4 Absolute Neuts (auto) 8.7 H Absolute Lymphs (auto) 1.06 Total Counted Not Reportable Neutrophils % (Manual) Band Neutrophils % Lymphocytes % (Manual) Monocytes % (Manual) Eosinophils % (Manual) Basophils % (Manual) Metamyelocytes % Myelocytes % Promyelocytes % Blast Cells % Plasma Cell % (Manual) Other Cells % Nucleated RBCs/100 WBC Differential Comment Diff Path Review Hypersegmented Neuts Atypical Lymphocytes Reactive Lymphocytes Smudge Cells Toxic Granulation Dohle Bodies Hector Rods Platelet Estimate Plt Morphology Comment RBC Morphology Polychromasia Hypochromasia Poikilocytosis Basophilic Stippling Anisocytosis Microcytosis Macrocytosis Spherocytes Sickle Cells Target Cells Tear Drop Cells Ovalocytes Stomatocytes [place] Bodies Spring Cells Bite Cells Acanthocytes (Spur) Rouleaux Schistocytes PT 65.1 H INR 7.6 H* Sodium 149 H Potassium 2.5 L* Chloride 113 H Carbon Dioxide 27.0 Anion Gap 9 BUN 17 Creatinine 1.07 Estim Creat Clear Calc 72.55 Est GFR (MDRD) Af Amer 87 Est GFR (MDRD) Non-Af 72 BUN/Creatinine Ratio 15.9 Glucose 98 Calcium 7.6 L Phosphorus Magnesium Total Bilirubin 0.50 AST 14 L ALT 15 L Alkaline Phosphatase 77 Total Protein 6.3 L Albumin 2.1 L Globulin 4.2 Albumin/Globulin Ratio 0.5 L 03/24/18 06:35 WBC Corrected WBC RBC Hgb Hct MCV MCH MCHC RDW RDW Differential Plt Count MPV Immature Gran % (Auto) Neut % (Auto) Lymph % (Auto) [place] % (Auto) Eos % (Auto) Baso % (Auto) Absolute Neuts (auto) Absolute Lymphs (auto) Total Counted Neutrophils % (Manual) Band Neutrophils % Lymphocytes % (Manual) Monocytes % (Manual) Eosinophils % (Manual) Basophils % (Manual) Metamyelocytes % Myelocytes % Promyelocytes % Blast Cells % Plasma Cell % (Manual) Other Cells % Nucleated RBCs/100 WBC Differential Comment Diff Path Review Hypersegmented Neuts Atypical Lymphocytes Reactive Lymphocytes Smudge Cells Toxic Granulation Dohle Bodies Hector Rods Platelet Estimate Plt Morphology Comment RBC Morphology Polychromasia Hypochromasia Poikilocytosis Basophilic Stippling Anisocytosis Microcytosis Macrocytosis Spherocytes Sickle Cells Target Cells Tear Drop Cells Ovalocytes Stomatocytes [place] Bodies Spring Cells Bite Cells Acanthocytes (Spur) Rouleaux Schistocytes PT INR Sodium Potassium Chloride Carbon Dioxide Anion Gap BUN Creatinine Estim Creat Clear Calc Est GFR (MDRD) Af Amer Est GFR (MDRD) Non-Af BUN/Creatinine Ratio Glucose Calcium Phosphorus 3.3 Magnesium 1.9 Total Bilirubin AST ALT Alkaline Phosphatase Total Protein Albumin Globulin Albumin/Globulin Ratio POC Glucose 03/24/18 03/24/18 03/24/18 11:56 11:53 06:47 POC Glucose 87 88 102 03/23/18 03/23/18 21:33 17:25 POC Glucose 116 H 121 H Assessment/Plan This patient was seen in conjunction with Toribio WEST. I have independently interviewed and examined the patient and reviewed pertinent history, examination findings, laboratory and plan of management. I have reviewed the note and agree with the documented findings with the few additional points. In brief, patient is admitted for vomiting and coughing with concern for aspiration along with constipation and abdominal distention. CT abdomen shows markedly distended colon down to the rectum with moderate amount of fecal material in the rectosigmoid colon. 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 Patient had colonoscopy on 03/23/2018 and was successful in relieving the distention. Patient needs evaluation from speech/swallow for aspiration. CT abdomen also shows bibasilar infiltrates, superimposed on chronic scarring and bronchiectasis worse at the left lung base. Antibiotic upgraded to Zosyn. I have discussed my assessment with Toribio WEST and orders have been reviewed. Code Visit Inpatient E&M: 34729 Subs Hosp L3
[2018-03-24 13:26] LABS: Bedside Glucose 88 mg/dL (70-110)
[2018-03-24 13:26] LABS: Bedside Glucose 87 mg/dL (70-110)
[2018-03-24 13:49] LABS: Magnesium 1.9 mg/dL (1.6-2.6); Phosphorus 3.3 mg/dL (2.5-4.9)
[2018-03-24 14:18] LABS: Pathologist Review Reviewed
[2018-03-24 17:10] LABS: Bedside Glucose 90 mg/dL (70-110)
[2018-03-24] MEDS: Atorvastatin Calcium 40 MG Tablet PO (22:13)
[2018-03-24] MEDS: Carvedilol 12.5 MG Tablet PO (22:13)
[2018-03-24] MEDS: Docusate Sodium 100 MG Capsule PO (22:13)
[2018-03-24] MEDS: Tamsulosin HCl 0.4 MG Capsule PO (22:13)
[2018-03-24 22:20] LABS: Bedside Glucose 118 mg/dL (70-110)
[2018-03-25] VITALS (12 sets, daily range): BP systolic 108–137; BP diastolic 58–79; PULSE 62–82; RESP 16–21; TEMP 36.4–36.7; O2SAT 92–94
[2018-03-25 05:55] LABS: Absolute Lymphocyte Count 1.21 X10^3/ul (0.83-4.51); Absolute Neutrophil Count 8.4 X10^3/uL (2.0-7.7); Basophil# 0.04 X10^3/uL; Basophil% 0.4 % (0-1); Eosinophil# 0.15 X10^3/uL; Eosinophils% 1.3 % (0-5); Hematocrit 33.9 % (40-54); Hemoglobin 10.5 g/dl (13.0-16.5); Lymphocyte # 1.21 X10^3/ul (4.0); Lymphocyte % 10.8 % (19-41); Mean Corpuscular Hgb 27.7 pg (27.0-32.0); Mean Corpuscular Volume 89.4 fL (80-94); Mean Platelet Vol. 8.8 fl (6.2-12.0); Monocyte# 1.28 X10^3/uL; Monocyte% 11.4 % (0-10); Neutrophil # 8.42 X10^3/uL (2.7-7.7); Neutrophil % 75.1 % (47-70); Platelet Count 210 K/mm3 (150-450); RBC Distribution Width CV 15.6 % (11.6-14.6); Red Blood Count 3.79 M/mm3 (4.6-6.2); White Blood Count 11.2 K/mm3 (4.4-11.0)
[2018-03-25] MEDS: Piperacil/Tazobactam 3.375 GM/50 ML ML IV ×3 (05:56→21:44)
[2018-03-25 05:57] LABS: POSITIVE COUNT NO; POSITIVE DIFFERENTIAL NO; POSITIVE MORPHOLOGY NO
[2018-03-25] MEDS: Levothyroxine 88 MCG Tablet PO (05:57)
[2018-03-25 05:58] LABS: Prothrombin Time (Protime)PT. 48.1 SECONDS (11.7-14.9)
[2018-03-25 06:08] LABS: Anion Gap 10 (5-15); BUN 12 mg/dL (7-18); BUN/Creat Ratio 13.1 RATIO (10-20); Calcium,Total 7.6 mg/dL (8.5-10.1); Chloride 107 mmol/L (98-107); Creatinine, Serum 0.92 mg/dL (0.70-1.30); EST Glomerular Filtration Rate 86 mL/min (>60); Est Glom Filt Rate - Afr Amer 104 mL/min (>60); Estimated Creatinine Clearance 84.38 ml/min; Glucose 104 mg/dL (74-106); Sodium Level 141 mmol/L (136-145)
[2018-03-25] MEDS: 0.9% NaCl Peripheral Flush Adult/Peds IV (06:09)
[2018-03-25 06:14] LABS: International Normalized Ratio 5.2
[2018-03-25 07:21] LABS: Bedside Glucose 93 mg/dL (70-110)
--- NOTE | 2018-03-25 09:44 | PN.SURG_ITS ---
Patient Problems: Active and Suspected Problems Aspiration pneumonitis (Acute) Abdominal distension (gaseous) (Acute) Subjective: Patient evaluated this morning. He denies pain. He denies passing flatus. Negative bowel movement. - Physical Exam General: Alert, Cooperative Abdomen: Hyperactive Bowel Sounds, Distended - More distended today., - - No softness to the abdomen, nontender Vital Signs Temp Pulse Resp BP Pulse Ox 97.7 F L 72 18 131/71 H 92 03/25/18 04:27 03/25/18 04:27 03/25/18 04:27 03/25/18 04:27 03/25/18 07:23 Oxygen Flow Rate (L/min) 2 Oxygen Delivery Method Room Air Weight: 188 lb 4.396 oz Body Mass Index (BMI) 24.1 Finger Stick Blood Glucose 105 Intake and Output for Last 24 Hours 03/23/18 03/24/18 03/25/18 23:59 23:59 23:59 Intake Total 2070 / 2070 1734 / 1734 2030 / 2030 Output Total 2200 / 2200 1125 / 1125 550 / 550 Balance -130 / -130 609 / 609 1480 / 1480 Microbiology Past 72 Hours 03/20/18 15:03 Blood Culture - Preliminary Blood Culture (Wb) - Left Forearm No growth in 48 hours. 03/20/18 14:45 Blood Culture - Preliminary Blood Culture (Wb) - Anticubital Left No growth in 48 hours. 03/20/18 16:10 Urine Culture - Final Urine, Catheterized Presumptive E. coli Laboratory Tests Past 24 Hrs 03/23/18 03/24/18 03/25/18 06:00 06:35 05:30 WBC RBC Hgb Hct MCV MCH MCHC RDW RDW Differential Plt Count MPV Immature Gran % (Auto) Neut % (Auto) Lymph % (Auto) [place] % (Auto) Eos % (Auto) Baso % (Auto) Absolute Neuts (auto) Absolute Lymphs (auto) Total Counted Diff Path Review Reviewed PT 48.1 H INR 5.2 H* Sodium Potassium Chloride Carbon Dioxide Anion Gap BUN Creatinine Estim Creat Clear Calc Est GFR (MDRD) Af Amer Est GFR (MDRD) Non-Af BUN/Creatinine Ratio Glucose Calcium Phosphorus 3.3 Magnesium 1.9 03/25/18 03/25/18 05:30 05:30 WBC 11.2 H RBC 3.79 L Hgb 10.5 L Hct 33.9 L MCV 89.4 MCH 27.7 MCHC 31.0 L RDW 15.6 H RDW Differential 51.0 H Plt Count 210 MPV 8.8 Immature Gran % (Auto) 1.000 H Neut % (Auto) 75.1 H Lymph % (Auto) 10.8 L [place] % (Auto) 11.4 H Eos % (Auto) 1.3 Baso % (Auto) 0.4 Absolute Neuts (auto) 8.4 H Absolute Lymphs (auto) 1.21 Total Counted Not Reportable Diff Path Review PT INR Sodium 141 Potassium 3.0 L Chloride 107 Carbon Dioxide 24.0 Anion Gap 10 BUN 12 Creatinine 0.92 Estim Creat Clear Calc 84.38 Est GFR (MDRD) Af Amer 104 Est GFR (MDRD) Non-Af 86 BUN/Creatinine Ratio 13.1 Glucose 104 Calcium 7.6 L Phosphorus Magnesium POC Glucose 03/25/18 03/24/18 03/24/18 07:14 22:08 16:58 POC Glucose 93 118 H 90 03/24/18 03/24/18 11:56 11:53 POC Glucose 87 88 Medical Necessity - Tobacco Use Smoking Status: Unknown if ever smoked Tobacco Use: Cigarettes Assessment/Plan All Active Problems Aspiration pneumonitis (Acute) Abdominal distension (gaseous) (Acute) Bilateral leg ulcer (Resolved) GI bleeding (Resolved) I am following this patient in conjunction with Dr. Saleem Impression: Beaumont's syndrome. Abdomen less distended this morning and softer. Schedule depressive colonoscopy for tomorrow. Will plan to place rectal tube at that time. NPO after midnight We will continue to closely monitor this patient. Code Visit Inpatient E&M: 30445 Subs Hosp L1
[2018-03-25] MEDS: Carvedilol 12.5 MG Tablet PO ×2 (09:50→21:44)
[2018-03-25] MEDS: Docusate Sodium 100 MG Capsule PO (09:51)
[2018-03-25] MEDS: Amiodarone 200 MG Tablet PO (09:51)
[2018-03-25] MEDS: Sertraline 50 MG Tablet PO (09:51)
[2018-03-25] MEDS: Polyethylene Glycol 3350 17 GM PACKET PO (09:51)
[2018-03-25] MEDS: Menthol/Lanolin/Calamine/Znox 113 GM Tube 1 APPLIC TOPICAL ×2 (09:52→21:43)
[2018-03-25] MEDS: Ipratropium/Albuterol Sulfate 3 ML AMPUL.NEB INHALATION ×2 (10:33→19:36)
[2018-03-25] MEDS: Bisacodyl 10 MG Suppository RECTAL (11:14)
[2018-03-25 11:41] LABS: Bedside Glucose 123 mg/dL (70-110)
--- NOTE | 2018-03-25 13:02 | PCM.PROGNOTE ---
<Toribio Lott - Last Filed: 03/25/18 13:02> Patient Problems: Active and Suspected Problems Aspiration pneumonitis (Acute) Abdominal distension (gaseous) (Acute) Subjective: Pt denies SOB, cough, chest pain nausea, vomiting, distention, or abdominal pain. There is a component of confusion as he was definitely drinking water this morning, and he says he has not eaten or drank anything today. He is tolerating the thickened liquids. He is more alert today and communicative which is a drastic improvement. Family not currently present. I discussed palliative / hospice with his yesterday afternoon who said she would discuss it with her son last night. - Physical Exam General: Alert, Cooperative HEENT: Atraumatic, PERRLA, EOMI, Normocephalic Neck: Supple, No JVD, Negative Carotid Bruits Lungs: Rales - BL bases Cardiovascular: Regular rate, No murmurs Abdomen: Soft, Non Tender, Hypoactive Bowel Sounds, Distended - mild Extremities: No edema, Capillary Refill Less than 3 Seconds Skin: No rashes, No breakdown Musculoskeletal: No Tenderness to Palpation of Joints or Extremities Neurological: Cranial nerves II-XII grossly intact Psych/Mental Status: Normal Affect, Appropriate Vital Signs Temp Pulse Resp BP Pulse Ox 97.5 F L 62 21 H 137/79 H 94 03/25/18 10:30 03/25/18 10:33 03/25/18 10:33 03/25/18 10:30 03/25/18 10:30 Oxygen Flow Rate (L/min) 2 Oxygen Delivery Method Room Air Weight: 188 lb 4.396 oz Body Mass Index (BMI) 24.1 Finger Stick Blood Glucose 105 Intake and Output for Last 24 Hours 03/23/18 03/24/18 03/25/18 23:59 23:59 23:59 Intake Total 2069 / 0 1734 / 1734 2030 / 2030 Output Total 2200 / 2200 1125 / 1125 550 / 550 Balance -130 / -130 609 / 609 1480 / 1480 Microbiology Past 72 Hours 03/20/18 15:03 Blood Culture - Preliminary Blood Culture (Wb) - Left Forearm No growth in 48 hours. 03/20/18 14:45 Blood Culture - Preliminary Blood Culture (Wb) - Anticubital Left No growth in 48 hours. 03/20/18 16:10 Urine Culture - Final Urine, Catheterized Presumptive E. coli Laboratory Tests Past 24 Hrs 03/23/18 03/24/18 03/25/18 06:00 06:35 05:30 WBC RBC Hgb Hct MCV MCH MCHC RDW RDW Differential Plt Count MPV Immature Gran % (Auto) Neut % (Auto) Lymph % (Auto) Walker % (Auto) Eos % (Auto) Baso % (Auto) Absolute Neuts (auto) Absolute Lymphs (auto) Total Counted Diff Path Review Reviewed PT 48.1 H INR 5.2 H* Sodium Potassium Chloride Carbon Dioxide Anion Gap BUN Creatinine Estim Creat Clear Calc Est GFR (MDRD) Af Amer Est GFR (MDRD) Non-Af BUN/Creatinine Ratio Glucose Calcium Phosphorus 3.3 Magnesium 1.9 03/25/18 03/25/18 05:30 05:30 WBC 11.2 H RBC 3.79 L Hgb 10.5 L Hct 33.9 L MCV 89.4 MCH 27.7 MCHC 31.0 L RDW 15.6 H RDW Differential 51.0 H Plt Count 210 MPV 8.8 Immature Gran % (Auto) 1.000 H Neut % (Auto) 75.1 H Lymph % (Auto) 10.8 L Walker % (Auto) 11.4 H Eos % (Auto) 1.3 Baso % (Auto) 0.4 Absolute Neuts (auto) 8.4 H Absolute Lymphs (auto) 1.21 Total Counted Not Reportable Diff Path Review PT INR Sodium 141 Potassium 3.0 L Chloride 107 Carbon Dioxide 24.0 Anion Gap 10 BUN 12 Creatinine 0.92 Estim Creat Clear Calc 84.38 Est GFR (MDRD) Af Amer 104 Est GFR (MDRD) Non-Af 86 BUN/Creatinine Ratio 13.1 Glucose 104 Calcium 7.6 L Phosphorus Magnesium POC Glucose 03/25/18 03/25/18 03/24/18 11:33 07:14 22:08 POC Glucose 123 H 93 118 H 03/24/18 03/24/18 03/24/18 16:58 11:56 11:53 POC Glucose 90 87 88 Medical Necessity - Tobacco Use Smoking Status: Unknown if ever smoked Tobacco Use: Cigarettes Assessment/Plan All Active Problems Aspiration pneumonitis (Acute) Abdominal distension (gaseous) (Acute) Bilateral leg ulcer (Resolved) GI bleeding (Resolved) 1. Recurent Abdominal distention - repeat colonoscopy tomorrow with rectal tube placement. Dr. Saleem following. 2. Aspiration pna - WBC improved. No fever. Continue zosyn. Will need ongoing speech therapy. 3. Chronic Afib - rate controlled. warfarin held. INR went up despite being held - likely 2/2 abx - now trending down. 4. Chronic systolic CHF, ischemic CM - lasix held. IV fluids being given. 5. Electrolyte imbalances - 0.45 NS with KCl to be infused. Mag was low normal, will give oral mag. Phos normal. 6. CAD with prior CABG - asa, statin, arb (hold), coreg 7. 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 8. Dysphagia - ST evals. 9. Hypothyroidism - synthroid 10. BPH - flomax 11. DMt2 - metformin held, SSI. 12. HTN - stable. 13. Anxiety - SSRI DVT ppx: warfarin on hold. SCDs DC planning: Pt hospice appropriate. to discuss with son. This patient was seen by Toribio Lott PA-C under the supervision of Doctor East. <Mike East - Last Filed: 03/25/18 16:42> Subjective: Seen and examined. Discussed with patient's , daughters near the bedside. Patient is still. Thirsty and wants to drink water. Anxious and restless. Waiting for son to make decision on hospice care. - Physical Exam General: Alert, Cooperative, Disoriented HEENT: Atraumatic, PERRLA, EOMI, Normocephalic Neck: Supple Lungs: Diminished, Rales Cardiovascular: Regular rate, Regular Rhythm, Normal S1, Normal S2, Irregular Rate Abdomen: Bowel Sounds Present, Soft, Non Tender, Hypoactive Bowel Sounds, Distended Extremities: No edema, Capillary Refill Less than 3 Seconds Skin: No rashes, No breakdown Musculoskeletal: No Tenderness to Palpation of Joints or Extremities, Arthritic Changes, Muscle Wasting Neurological: Cranial nerves II-XII grossly intact, - - Confused and disoriented. Vital Signs Temp Pulse Resp BP Pulse Ox 98.1 F 72 16 108/58 L 92 03/25/18 14:00 03/25/18 14:00 03/25/18 14:00 03/25/18 14:00 03/25/18 14:00 Oxygen Flow Rate (L/min) 2 Oxygen Delivery Method Room Air Weight: 188 lb 4.396 oz Body Mass Index (BMI) 24.1 Finger Stick Blood Glucose 105 Intake and Output for Last 24 Hours 03/23/18 03/24/18 03/25/18 23:59 23:59 23:59 Intake Total 2069 / 0 1734 / 1734 3158 / 3158 Output Total 2200 / 2200 1125 / 1125 750 / 750 Balance -130 / -130 609 / 609 2408 / 2408 Microbiology Past 72 Hours 03/20/18 15:03 Blood Culture - Final Blood Culture (Wb) - Left Forearm No growth in 5 days. 03/20/18 14:45 Blood Culture - Final Blood Culture (Wb) - Anticubital Left No growth in 5 days. Laboratory Tests Past 24 Hrs 03/25/18 03/25/18 03/25/18 05:30 05:30 05:30 WBC 11.2 H RBC 3.79 L Hgb 10.5 L Hct 33.9 L MCV 89.4 MCH 27.7 MCHC 31.0 L RDW 15.6 H RDW Differential 51.0 H Plt Count 210 MPV 8.8 Immature Gran % (Auto) 1.000 H Neut % (Auto) 75.1 H Lymph % (Auto) 10.8 L Walker % (Auto) 11.4 H Eos % (Auto) 1.3 Baso % (Auto) 0.4 Absolute Neuts (auto) 8.4 H Absolute Lymphs (auto) 1.21 Total Counted Not Reportable PT 48.1 H INR 5.2 H* Sodium 141 Potassium 3.0 L Chloride 107 Carbon Dioxide 24.0 Anion Gap 10 BUN 12 Creatinine 0.92 Estim Creat Clear Calc 84.38 Est GFR (MDRD) Af Amer 104 Est GFR (MDRD) Non-Af 86 BUN/Creatinine Ratio 13.1 Glucose 104 Calcium 7.6 L POC Glucose 03/25/18 03/25/18 03/25/18 16:10 11:33 07:14 POC Glucose 121 H 123 H 93 03/24/18 03/24/18 22:08 16:58 POC Glucose 118 H 90 Assessment/Plan This patient was seen in conjunction with Toribio WEST. I have independently interviewed and examined the patient and reviewed pertinent history, examination findings, laboratory and plan of management. I have reviewed the note and agree with the documented findings with the few additional points. In brief, patient is admitted for vomiting and coughing with concern for aspiration, most likely from abdominal distention and reflux aspiration along with constipation. Discussed with the patient's or daughters. Waiting for the son to make decision on palliative care/hospice care. had a little bit frustration he had abdominal distention during first admission and constipation and was not well taken care of. Try to convince her. CT abdomen shows markedly distended colon down to the rectum with moderate amount of fecal material in the rectosigmoid colon. 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 Patient had colonoscopy on 03/23/2018 and was successful in relieving the distention. Patient needs evaluation from speech/swallow for aspiration. CT abdomen also shows bibasilar infiltrates, superimposed on chronic scarring and bronchiectasis worse at the left lung base. On IV Zosyn for aspiration pneumonia. I have discussed my assessment with Toribio WEST and orders have been reviewed. Code Visit Inpatient E&M: 15780 Subs Hosp L3
[2018-03-25] MEDS: Potassium Chloride 40 MEQ in 0.45% Normal Saline 1,000 ML 75 MEQ IV (15:54)
[2018-03-25 16:15] LABS: Bedside Glucose 121 mg/dL (70-110)
[2018-03-25] MEDS: Magnesium Oxide 400 MG Tablet 800 MG PO (16:28)
[2018-03-25] MEDS: Atorvastatin Calcium 40 MG Tablet PO (21:44)
[2018-03-25] MEDS: Tamsulosin HCl 0.4 MG Capsule PO (21:44)
[2018-03-25 21:51] LABS: Bedside Glucose 119 mg/dL (70-110)
[2018-03-26] VITALS (20 sets, daily range): BP systolic 88–137; BP diastolic 56–85; PULSE 63–83; RESP 16–22; TEMP 36.1–36.7; O2SAT 93–100
[2018-03-26] MEDS: Piperacil/Tazobactam 3.375 GM/50 ML ML IV ×3 (05:07→21:47)
[2018-03-26] MEDS: Potassium Chloride 40 MEQ in 0.45% Normal Saline 1,000 ML 75 MEQ IV ×2 (05:08→22:03)
[2018-03-26] MEDS: Levothyroxine 88 MCG Tablet PO (05:08)
[2018-03-26 06:24] LABS: Absolute Lymphocyte Count 1.12 X10^3/ul (0.83-4.51); Absolute Neutrophil Count 7.8 X10^3/uL (2.0-7.7); Basophil# 0.04 X10^3/uL; Basophil% 0.4 % (0-1); Eosinophil# 0.16 X10^3/uL; Eosinophils% 1.5 % (0-5); Hematocrit 33.1 % (40-54); Hemoglobin 10.3 g/dl (13.0-16.5); Lymphocyte # 1.12 X10^3/ul (4.0); Lymphocyte % 10.7 % (19-41); Mean Corp Hgb Conc 31.1 g/gl (32-36); Mean Corpuscular Hgb 27.7 pg (27.0-32.0); Mean Platelet Vol. 8.7 fl (6.2-12.0); Monocyte# 1.16 X10^3/uL; Monocyte% 11.1 % (0-10); Neutrophil # 7.79 X10^3/uL (2.7-7.7); Neutrophil % 74.9 % (47-70); Platelet Count 277 K/mm3 (150-450); RBC Distribution Width CV 15.5 % (11.6-14.6); RBC Distribution Width SD 49.4 fl (35.1-43.9); Red Blood Count 3.72 M/mm3 (4.6-6.2); White Blood Count 10.4 K/mm3 (4.4-11.0)
[2018-03-26 06:27] LABS: POSITIVE COUNT NO; POSITIVE DIFFERENTIAL NO; POSITIVE MORPHOLOGY NO
[2018-03-26 06:52] LABS: Anion Gap 10 (5-15); BUN 9 mg/dL (7-18); BUN/Creat Ratio 11.2 RATIO (10-20); Calcium,Total 7.6 mg/dL (8.5-10.1); Chloride 108 mmol/L (98-107); EST Glomerular Filtration Rate 100 mL/min (>60); Est Glom Filt Rate - Afr Amer 121 mL/min (>60); Estimated Creatinine Clearance 97.04 ml/min; Glucose 107 mg/dL (74-106); Potassium 2.6 mmol/L (3.5-5.1); Sodium Level 143 mmol/L (136-145)
[2018-03-26 06:56] LABS: Bedside Glucose 102 mg/dL (70-110)
--- NOTE | 2018-03-26 07:03 | NURSING ---
Addendum entered by Indira Mclaughlin 03/26/18 07:08: Deanne called back and let me know that she spoke with anesthesia and Dr. Dick would like at least 2 of the bags infused and then they would redraw him when he got down to Endo. If his repeat K is between 3 and 3.2, then they would proceed with the colonoscopy. She wanted to make sure that we sent down the other remaining bags of K riders with him. and that they would need him down in Endo at 0830. Original Note: called down to Endo and spoke with Deanne to notify her of patient's K critical lab value of 2.6. I let her know that I notified the MD and put in orders for 40 mEq of IV Kriders, but pharmacy has not verified or sent up the bags yet. I let her know that I would try and run it as fast as I could but that I did not think all 4 bags would be infused by the time he went down for his procedure.
[2018-03-26] MEDS: Potassium Chloride 10mEq/100mL 10 MEQ/100 ML IV.SOLN. 100 MEQ IV BOLUS ×4 (07:52→11:03)
[2018-03-26 09:02] LABS: Magnesium 1.8 mg/dL (1.6-2.6); Phosphorus 1.7 mg/dL (2.5-4.9)
[2018-03-26 09:05] LABS: Potassium 2.9 mmol/L (3.5-5.1)
[2018-03-26] MEDS: Ipratropium/Albuterol Sulfate 3 ML AMPUL.NEB INHALATION ×2 (10:46→14:54)
[2018-03-26] MEDS: Menthol/Lanolin/Calamine/Znox 113 GM Tube 1 APPLIC TOPICAL ×2 (11:05→21:46)
[2018-03-26] MEDS: Carvedilol 12.5 MG Tablet PO ×2 (11:09→21:46)
[2018-03-26] MEDS: Amiodarone 200 MG Tablet PO (11:09)
[2018-03-26] MEDS: Sertraline 50 MG Tablet PO (11:09)
[2018-03-26] MEDS: Docusate Sodium 100 MG Capsule PO ×2 (11:10→21:46)
[2018-03-26] MEDS: Polyethylene Glycol 3350 17 GM PACKET PO (11:10)
[2018-03-26] MEDS: Bisacodyl 10 MG Suppository RECTAL (11:10)
[2018-03-26 11:40] LABS: Bedside Glucose 77 mg/dL (70-110)
--- NOTE | 2018-03-26 14:06 | PCM.PROGNOTE ---
<Maribell Evans - Last Filed: 03/26/18 14:42> Patient Problems: Active and Suspected Problems Aspiration pneumonitis (Acute) Abdominal distension (gaseous) (Acute) Subjective: Patient seen and examined. Patient denies current complaints. Discussed plan of care with at bedside. firmly declines hospice services and wishes to take patient home with home health. Also declines SNF. - Physical Exam General: Alert, Cooperative, No apparent distress HEENT: Atraumatic, PERRLA, EOMI, Normocephalic Oral: Dry Mucosa Neck: Supple, No JVD, Negative Carotid Bruits Lungs: Diminished, Rales Cardiovascular: - - Atrial fibrillation, rate controlled Abdomen: Bowel Sounds Present, Soft, Non Tender, Distended Extremities: No clubbing, No cyanosis, No edema, Capillary Refill Less than 3 Seconds Skin: No rashes, - - Chronic decubitus ulcers buttocks Musculoskeletal: No Tenderness to Palpation of Joints or Extremities Neurological: Cranial nerves II-XII grossly intact Psych/Mental Status: Normal Affect, Appropriate Vital Signs Temp Pulse Resp BP Pulse Ox 96.9 F L 77 22 H 117/69 98 03/26/18 10:05 03/26/18 10:46 03/26/18 10:46 03/26/18 10:05 03/26/18 10:05 Oxygen Flow Rate (L/min) 2 Oxygen Delivery Method Room Air Weight: 188 lb 4.396 oz Body Mass Index (BMI) 24.1 Finger Stick Blood Glucose 105 Intake and Output for Last 24 Hours 03/24/18 03/25/18 03/26/18 23:59 23:59 23:59 Intake Total 1734 / 1734 4267.8 / 4267.8 554.6 / 554.6 Output Total 1125 / 1125 1275 / 1275 250 / 250 Balance 609 / 609 2992.8 / 2992.8 304.6 / 304.6 Microbiology Past 72 Hours 03/20/18 15:03 Blood Culture - Final Blood Culture (Wb) - Left Forearm No growth in 5 days. 03/20/18 14:45 Blood Culture - Final Blood Culture (Wb) - Anticubital Left No growth in 5 days. Laboratory Tests Past 24 Hrs 03/26/18 03/26/18 03/26/18 06:05 06:05 06:05 WBC 10.4 RBC 3.72 L Hgb 10.3 L Hct 33.1 L MCV 89.0 MCH 27.7 MCHC 31.1 L RDW 15.5 H RDW Differential 49.4 H Plt Count 277 MPV 8.7 Immature Gran % (Auto) 1.400 H Neut % (Auto) 74.9 H Lymph % (Auto) 10.7 L [place] % (Auto) 11.1 H Eos % (Auto) 1.5 Baso % (Auto) 0.4 Absolute Neuts (auto) 7.8 H Absolute Lymphs (auto) 1.12 Total Counted Not Reportable Sodium 143 Potassium 2.6 L* Chloride 108 H Carbon Dioxide 25.0 Anion Gap 10 BUN 9 Creatinine 0.80 Estim Creat Clear Calc 97.04 Est GFR (MDRD) Af Amer 121 Est GFR (MDRD) Non-Af 100 BUN/Creatinine Ratio 11.2 Glucose 107 H Calcium 7.6 L Phosphorus 1.7 L Magnesium 1.8 03/26/18 08:54 WBC RBC Hgb Hct MCV MCH MCHC RDW RDW Differential Plt Count MPV Immature Gran % (Auto) Neut % (Auto) Lymph % (Auto) [place] % (Auto) Eos % (Auto) Baso % (Auto) Absolute Neuts (auto) Absolute Lymphs (auto) Total Counted Sodium Potassium 2.9 L Chloride Carbon Dioxide Anion Gap BUN Creatinine Estim Creat Clear Calc Est GFR (MDRD) Af Amer Est GFR (MDRD) Non-Af BUN/Creatinine Ratio Glucose Calcium Phosphorus Magnesium Cancelled POC Glucose 03/26/18 03/26/18 03/25/18 11:32 06:50 21:42 POC Glucose 77 102 119 H 03/25/18 16:10 POC Glucose 121 H Medical Necessity - Tobacco Use Smoking Status: Unknown if ever smoked Tobacco Use: Cigarettes Assessment/Plan All Active Problems Aspiration pneumonitis (Acute) Abdominal distension (gaseous) (Acute) Bilateral leg ulcer (Resolved) GI bleeding (Resolved) 1. Aspiration pneumonia-on IV Zosyn. Speech therapy consult. Leukocytosis resolved. Afebrile. 2. Acute e.coli UTI-on IV Zosyn. 3. Acute on chronic hypokalemia-replaced per protocol. History of recurrent hypokalemia. Home supplemental potassium increased to 40 mEq twice daily. 4. Recurrent abdominal distention-Dr. Saleem following. 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 To undergo depressive colonoscopy today. Plan to place rectal tube. Further management per general surgery. 5. Chronic atrial fibrillation on anticoagulation with Coumadin-continue amiodarone, Coumadin, carvedilol. 6. CAD status post CABG-continue Coumadin, statin, beta-kathleen. 7. Chronic systolic CHF/ischemic cardiomyopathy- Echo with EF 40% as noted above. 8. Peripheral arterial disease status post lower extremity stents-continue statin. Coumadin on hold. 9. Hypertension-stable, continue home regimen. 10. Hyperlipidemia-continue statin. 11. Hypothyroidism-Continue Synthroid regimen. 12. Iron deficiency anemia-stable. 13. BPH-continue Flomax regimen. 14. Depression-continue sertraline regimen. 15. Debility- reports patient requiring significant care at home. Patient and family refused SNF during recent admission. PT/OT. 16. Moderate to severe protein calorie malnutrition-nutrition consult. 17. New-onset type 2 diabetes mellitus-Hemoglobin A1c 7.6%. Hold metformin. Accu-Cheks AC at bedtime with sliding scale insulin. 18. Chronic kidney disease stage III-stable, trend BMP. 19. Recent acute right midbrain infarct, history of prior CVA of the left occipital-continue aspirin, statin. Coumadin on hold. PT/OT/ST. 20. Chronic gluteal decubitus ulcers, present on admission-frequent position changes. Wound RN consult. DVT prophylaxis- SCDs. Discharge planning: Home with home health. declining SNF, hospice. This patient was seen by RICHELLE Lovelace under the supervision of Dr. East. <Mike East - Last Filed: 03/26/18 16:24> Subjective: Patient is scheduled for repeat colonoscopy with rectal tube. Potassium is very low getting replacement. - Physical Exam General: Cooperative, Disoriented HEENT: Atraumatic, PERRLA, EOMI, Normocephalic Oral: Dry Mucosa Neck: Supple, No JVD, Negative Carotid Bruits Lungs: Diminished, Rales, Rhonchi Cardiovascular: Normal S1, Normal S2, No murmurs, Irregular Rate, - Abdomen: Bowel Sounds Present, Soft, Non Tender, Distended Extremities: No clubbing, No cyanosis, No edema Musculoskeletal: No Tenderness to Palpation of Joints or Extremities, Arthritic Changes, Muscle Wasting Neurological: Cranial nerves II-XII grossly intact, - - No focal neurological deficit Vital Signs Temp Pulse Resp BP Pulse Ox 97.8 F 74 18 131/71 H 99 03/26/18 10:30 03/26/18 14:54 03/26/18 14:54 03/26/18 10:30 03/26/18 10:30 Oxygen Flow Rate (L/min) 2 Oxygen Delivery Method Room Air Weight: 188 lb 4.396 oz Body Mass Index (BMI) 24.1 Finger Stick Blood Glucose 105 Intake and Output for Last 24 Hours 03/24/18 03/25/18 03/26/18 23:59 23:59 23:59 Intake Total 1734 / 1734 4267.8 / 4267.8 554.6 / 554.6 Output Total 1125 / 1125 1275 / 1275 250 / 250 Balance 609 / 609 2992.8 / 2992.8 304.6 / 304.6 Microbiology Past 72 Hours 03/20/18 15:03 Blood Culture - Final Blood Culture (Wb) - Left Forearm No growth in 5 days. 03/20/18 14:45 Blood Culture - Final Blood Culture (Wb) - Anticubital Left No growth in 5 days. Laboratory Tests Past 24 Hrs 03/26/18 03/26/18 03/26/18 06:05 06:05 06:05 WBC 10.4 RBC 3.72 L Hgb 10.3 L Hct 33.1 L MCV 89.0 MCH 27.7 MCHC 31.1 L RDW 15.5 H RDW Differential 49.4 H Plt Count 277 MPV 8.7 Immature Gran % (Auto) 1.400 H Neut % (Auto) 74.9 H Lymph % (Auto) 10.7 L [place] % (Auto) 11.1 H Eos % (Auto) 1.5 Baso % (Auto) 0.4 Absolute Neuts (auto) 7.8 H Absolute Lymphs (auto) 1.12 Total Counted Not Reportable Sodium 143 Potassium 2.6 L* Chloride 108 H Carbon Dioxide 25.0 Anion Gap 10 BUN 9 Creatinine 0.80 Estim Creat Clear Calc 97.04 Est GFR (MDRD) Af Amer 121 Est GFR (MDRD) Non-Af 100 BUN/Creatinine Ratio 11.2 Glucose 107 H Calcium 7.6 L Phosphorus 1.7 L Magnesium 1.8 03/26/18 03/26/18 08:54 14:25 WBC RBC Hgb Hct MCV MCH MCHC RDW RDW Differential Plt Count MPV Immature Gran % (Auto) Neut % (Auto) Lymph % (Auto) [place] % (Auto) Eos % (Auto) Baso % (Auto) Absolute Neuts (auto) Absolute Lymphs (auto) Total Counted Sodium 144 Potassium 2.9 L 3.3 L Chloride 109 H Carbon Dioxide 27.0 Anion Gap 8 BUN 9 Creatinine 0.86 Estim Creat Clear Calc 90.27 Est GFR (MDRD) Af Amer 113 Est GFR (MDRD) Non-Af 93 BUN/Creatinine Ratio 10.5 Glucose 100 Calcium 7.6 L Phosphorus Magnesium Cancelled POC Glucose 03/26/18 03/26/18 03/25/18 11:32 06:50 21:42 POC Glucose 77 102 119 H 03/25/18 16:10 POC Glucose 121 H Assessment/Plan This patient was seen in conjunction with Toribio WEST. I have independently interviewed and examined the patient and reviewed pertinent history, examination findings, laboratory and plan of management. I have reviewed the note and agree with the documented findings with the few additional points. In brief, patient is admitted for vomiting and coughing with concern for aspiration, most likely from abdominal distention and reflux aspiration along with constipation. Discussed with the patient's and daughters. Patient family refused for hospice or SNF. CT abdomen shows markedly distended colon down to the rectum with moderate amount of fecal material in the rectosigmoid colon. 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 Patient had colonoscopy on 03/23/2018 and was successful in relieving the distention. Patient needs evaluation from speech/swallow for aspiration. CT abdomen also shows bibasilar infiltrates, superimposed on chronic scarring and bronchiectasis worse at the left lung base. On IV Zosyn for aspiration pneumonia. Severe hypokalemia and hypophosphatemia: K2.6, repeat magnesium 1.8. Phosphorus 1.7. After replacement K is 3.3. Electrolytes are on replacement. I have discussed my assessment with Toribio WEST and orders have been reviewed. Code Visit Inpatient E&M: 55816 Subs Hosp L3
[2018-03-26 14:57] LABS: Anion Gap 8 (5-15); BUN 9 mg/dL (7-18); BUN/Creat Ratio 10.5 RATIO (10-20); Calcium,Total 7.6 mg/dL (8.5-10.1); Chloride 109 mmol/L (98-107); Creatinine, Serum 0.86 mg/dL (0.70-1.30); EST Glomerular Filtration Rate 93 mL/min (>60); Est Glom Filt Rate - Afr Amer 113 mL/min (>60); Estimated Creatinine Clearance 90.27 ml/min; Glucose 100 mg/dL (74-106); Potassium 3.3 mmol/L (3.5-5.1); Sodium Level 144 mmol/L (136-145)
--- NOTE | 2018-03-26 15:19 | NURSING ---
(819)-SPOKE WITH SHREYA IN [facility], SHE IS AWARE K+ 2.6 PT STILL ON 1ST KRIDER D/T MED COMING TO UNIT LATE. SHE CALLED BACK AND SAID DR ANGUIANO STILL WANTED PT TO GO DOWN FOR 929 COLONOSCOPY, WILL RECHECK K+ DOWN THERE, (2.9) ALL KRIDERS SENT W/PT. (1030) PT RETURNED TO UNIT, 3RD KRIDER INFUSING. CLARIFIED W/DR RIVERA AND ADDITIONAL PO K+ GIVEN
[2018-03-26 18:20] LABS: Bedside Glucose 111 mg/dL (70-110)
--- NOTE | 2018-03-26 19:24 | NURSING ---
1800-SPOKE WITH INDIGO IN PHARMACY, TOLD HER A 2ND 40MEQ KDUR NEEDED, PT REFUSED 1ST DOSE.
--- NOTE | 2018-03-26 20:15 | RAD_ITS ---
STUDY: X-RAY - ABDOMEN/PELVIS REASON FOR EXAM: Male, 72 years old. Abdominal distention TECHNIQUE: AP supine and decubitus views of the abdomen and pelvis. COMPARISON: Prior study 03/20/2018 FINDINGS: Normal visualized lung bases. There is marked gaseous distention of the colon to the level of the sigmoid, increased in severity from the previous study. The cecum measures up to 21.7 cm in diameter. There is no demonstrated free abdominal air. The visualized liver, spleen and kidneys are grossly normal in size and morphology. Normal soft tissue structures. Normal visualized osseous structures. RAD/Abd Decub and/or Erect(Portabl IMPRESSION: Marked gaseous distention of the colon to the level of the sigmoid, increased in severity from the prior study. The cecum measures up to 21.7 cm in diameter. Electronically Signed: Kiko Zhou MD at 20:41 EST , Service support ,
[2018-03-26] MEDS: Na Biphos/Potassium Phosphate PACKET 1 PACKET PO (21:46)
[2018-03-26] MEDS: Tamsulosin HCl 0.4 MG Capsule PO (21:47)
[2018-03-26] MEDS: Atorvastatin Calcium 40 MG Tablet PO (21:47)
--- NOTE | 2018-03-26 22:14 | PCM.HOSP.N ---
Hospitalist Note Worsening distention, change in BS. KUB repeat ordered w/ noted marked gaseous distention of the colon to the level of the sigmoid, increased in severity from the prior study, cecum measures up to 21.7cm in diameter. Requested surgery be immediately notified as suspect NGT likely will not be effective, may need decompression by surgery.
[2018-03-26 22:26] LABS: Bedside Glucose 127 mg/dL (70-110)
[2018-03-27] VITALS (15 sets, daily range): BP systolic 135–150; BP diastolic 74–95; PULSE 72–91; RESP 16–18; TEMP 36.4–37.1; O2SAT 93–100
[2018-03-27] MEDS: 0.9% NaCl Peripheral Flush Adult/Peds IV (00:52)
[2018-03-27 00:59] LABS: BUN 7 mg/dL (7-18); Estimated Creatinine Clearance 97.04 ml/min; Glucose 120 mg/dL (74-106)
[2018-03-27 01:00] LABS: Anion Gap 8 (5-15); BUN/Creat Ratio 8.8 RATIO (10-20); Calcium,Total 7.6 mg/dL (8.5-10.1); Chloride 111 mmol/L (98-107); EST Glomerular Filtration Rate 101 mL/min (>60); Est Glom Filt Rate - Afr Amer 122 mL/min (>60); Potassium 4.1 mmol/L (3.5-5.1); Sodium Level 141 mmol/L (136-145)
[2018-03-27] MEDS: Haloperidol Lactate 5 MG/ML Vial 1 MG IM (01:30)
[2018-03-27] MEDS: Piperacil/Tazobactam 3.375 GM/50 ML ML IV ×3 (05:31→22:36)
[2018-03-27] MEDS: Levothyroxine 88 MCG Tablet PO (05:32)
[2018-03-27] MEDS: Ipratropium/Albuterol Sulfate 3 ML AMPUL.NEB INHALATION ×4 (06:49→18:26)
[2018-03-27 06:56] LABS: Bedside Glucose 104 mg/dL (70-110)
[2018-03-27 07:00] LABS: Anion Gap 10 (5-15); BUN 6 mg/dL (7-18); BUN/Creat Ratio 7.5 RATIO (10-20); Calcium,Total 7.7 mg/dL (8.5-10.1); Chloride 111 mmol/L (98-107); EST Glomerular Filtration Rate 100 mL/min (>60); Est Glom Filt Rate - Afr Amer 121 mL/min (>60); Estimated Creatinine Clearance 97.04 ml/min; Glucose 107 mg/dL (74-106); Potassium 3.9 mmol/L (3.5-5.1); Sodium Level 145 mmol/L (136-145)
[2018-03-27] MEDS: Na Biphos/Potassium Phosphate PACKET 1 PACKET PO ×3 (07:44→18:15)
[2018-03-27] MEDS: Menthol/Lanolin/Calamine/Znox 113 GM Tube 1 APPLIC TOPICAL ×2 (10:13→22:30)
[2018-03-27] MEDS: Amiodarone 200 MG Tablet PO (10:14)
[2018-03-27] MEDS: Carvedilol 12.5 MG Tablet PO ×2 (10:14→22:31)
[2018-03-27] MEDS: Sertraline 50 MG Tablet PO (10:14)
[2018-03-27] MEDS: Docusate Sodium 100 MG Capsule PO (10:14)
[2018-03-27] MEDS: Bisacodyl 10 MG Suppository RECTAL (10:14)
[2018-03-27] MEDS: Polyethylene Glycol 3350 17 GM PACKET PO (10:14)
[2018-03-27 11:45] LABS: Prothrombin Time (Protime)PT. 41.6 SECONDS (11.7-14.9)
[2018-03-27 11:53] LABS: International Normalized Ratio 4.3
[2018-03-27] MEDS: Potassium Chloride 40 MEQ in 0.45% Normal Saline 1,000 ML 75 MEQ IV (12:16)
[2018-03-27 12:30] LABS: Bedside Glucose 114 mg/dL (70-110)
--- NOTE | 2018-03-27 15:57 | PCM.PN.HOSP ---
Patient Problems: Active and Suspected Problems Aspiration pneumonitis (Acute) Abdominal distension (gaseous) (Acute) Subjective: Patient abdomen is distended. Discussed with the . She has not discussed with patient's son or daughter regarding hospice care today but as of yesterday they do not want hospice care. Discussed with Dr. Saleem. Vitals/I&O's: Vital Signs Temp Pulse Resp BP Pulse Ox 98.7 F 78 18 146/91 H 98 03/27/18 15:38 03/27/18 15:38 03/27/18 15:38 03/27/18 15:38 03/27/18 15:38 Oxygen Flow Rate (L/min) 2 Oxygen Delivery Method Room Air Weight: 188 lb 4.396 oz Body Mass Index (BMI) 24.1 Finger Stick Blood Glucose 105 Intake and Output for Last 24 Hours 03/25/18 03/26/18 03/27/18 23:59 23:59 23:59 Intake Total 4267.8 / 4267.8 1059.8 / 1059.8 1304.4 / 1304.4 Output Total 1275 / 1275 475 / 475 500 / 500 Balance 2992.8 / 2992.8 584.8 / 584.8 804.4 / 804.4 General: Alert, Oriented x3, Cooperative, Confused, - - Emaciated. Diffuse muscle atrophy. HEENT: Atraumatic, PERRLA, EOMI, Normocephalic Oral: Dry Mucosa Neck: Supple, No JVD, Negative Carotid Bruits Lungs: Diminished, Rales - Rales in both lower lobes., Rhonchi Cardiovascular: Regular rate, Regular Rhythm, Normal S1, Normal S2, No murmurs Abdomen: Bowel Sounds Present, Soft, Non Tender, Non-Distended Extremities: No edema, Capillary Refill Less than 3 Seconds Skin: No rashes, No breakdown Musculoskeletal: No Tenderness to Palpation of Joints or Extremities, Arthritic Changes, Muscle Wasting Neurological: Cranial nerves II-XII grossly intact Psych/Mental Status: Normal Affect, Appropriate Microbiology Past 72 Hours 03/20/18 15:03 Blood Culture (Wb) - Left Forearm Blood Culture - Final No growth in 5 days. 03/20/18 14:45 Blood Culture (Wb) - Anticubital Left Blood Culture - Final No growth in 5 days. Laboratory Results 03/26/18 18:12: POC Glucose 111 H 03/26/18 21:48: POC Glucose 127 H 03/27/18 00:25: Sodium 141, Potassium 4.1, Chloride 111 H, Carbon Dioxide 22.0, Anion Gap 8, BUN 7, Creatinine 0.80, Estim Creat Clear Calc 97.04, Est GFR (MDRD) Af Amer 122, Est GFR (MDRD) Non-Af 101, BUN/Creatinine Ratio 8.8 L, Glucose 120 H, Calcium 7.6 L 03/27/18 06:16: Sodium 145, Potassium 3.9, Chloride 111 H, Carbon Dioxide 24.0, Anion Gap 10, BUN 6 L, Creatinine 0.80, Estim Creat Clear Calc 97.04, Est GFR (MDRD) Af Amer 121, Est GFR (MDRD) Non-Af 100, BUN/Creatinine Ratio 7.5 L, Glucose 107 H, Calcium 7.7 L 03/27/18 06:52: POC Glucose 104 03/27/18 11:30: PT 41.6 H, INR 4.3 H* 03/27/18 12:13: POC Glucose 114 H Current Medications Albuterol Sulfate (Ventolin Aerosols) 2.5 mg INHALATION Q2H PRN PRN PRN Reason: sob/wheezing Albuterol/Ipratropium (Duoneb) 3 ml INHALATION Q4HWA.RT [facility] Last Admin: 03/27/18 14:56 Dose: 3 ml Amiodarone HCl (Cordarone) 200 mg PO DAILY [facility] Last Admin: 03/27/18 10:14 Dose: 200 mg Atorvastatin Calcium (Lipitor) 40 mg PO QHS [facility] Last Admin: 03/26/18 21:47 Dose: 40 mg Bisacodyl (Dulcolax) 10 mg RECTAL DAILY [facility] Last Admin: 03/27/18 10:14 Dose: 10 mg Calamine/Phenol (Calmoseptine Ointment) 1 applic TOPICAL BID [facility]; Protocol Last Admin: 03/27/18 10:13 Dose: 1 applicatio Carvedilol (Coreg) 12.5 mg PO BID [facility] Last Admin: 03/27/18 10:14 Dose: 12.5 mg Dextrose (D50w Syringe) 0 gm IV X1 PRN; Protocol PRN Reason: Hypoglycemia Docusate Sodium (Colace) 100 mg PO BID [facility] Last Admin: 03/27/18 10:14 Dose: 100 mg Glucagon () 1 mg IM .X1 PRN PRN Reason: Hypoglycemia Piperacillin Sod/Tazobactam Sod (Zosyn) 3.375 gm in 50 mls @ 12.5 mls/hr IV Q8 [facility] Last Admin: 03/27/18 13:20 Dose: 12.5 mls/hr Potassium Chloride 40 meq/ (Sodium Chloride) 1,020 mls @ 75 mls/hr IV .[id number] [facility] Last Admin: 03/27/18 12:16 Dose: 75 mls/hr Insulin Human Lispro (Humalog Kwikpen (Bkc)) 0 unit SC ACHS [facility]; Protocol Last Admin: 03/27/18 12:15 Dose: Not Given Levothyroxine Sodium (Synthroid) 88 mcg PO DAILY@0600 [facility] Last Admin: 03/27/18 05:32 Dose: 88 mcg Magnesium Hydroxide (Milk Of Magnesia) 30 ml PO DAILY PRN PRN Reason: Constipation Last Admin: 03/20/18 21:08 Dose: 30 ml Nutritional Formula (Lactose Free) (Ensure Enlive) 120 ml PO 4X/DAY [facility] Last Admin: 03/27/18 15:12 Dose: Not Given Polyethylene Glycol (Miralax) 17 gm PO DAILY [facility] Last Admin: 03/27/18 10:14 Dose: 17 gm Potassium Phos/Sodium Phos (Neutra-Phos Packet) 1 packet PO TIDCM [facility] Stop: 03/29/18 17:01 Last Admin: 03/27/18 12:16 Dose: 1 packet Sertraline HCl (Zoloft) 50 mg PO DAILY [facility] Last Admin: 03/27/18 10:14 Dose: 50 mg Sodium Chloride () 5 - 15 ml IV UD PRN PRN Reason: SALINE FLUSH Last Admin: 03/27/18 00:52 Dose: 10 ml Tamsulosin HCl (Flomax) 0.4 mg PO QHS [facility] Last Admin: 03/26/18 21:47 Dose: 0.4 mg Medical Necessity - Tobacco Use Smoking Status: Unknown if ever smoked Tobacco Use: Cigarettes Assessment/Plan All Active Problems Aspiration pneumonitis (Acute) Abdominal distension (gaseous) (Acute) Bilateral leg ulcer (Resolved) GI bleeding (Resolved) This is a 72-year-old gentleman who is admitted for vomiting and coughing with concern for aspiration, most likely from abdominal distention and reflux aspiration along with constipation along with aspiration pneumonia. Discussed with the patient's and daughters. Patient family refused for hospice or SNF. CT abdomen shows markedly distended colon down to the rectum with moderate amount of fecal material in the rectosigmoid colon. 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 Patient had colonoscopy on 03/23/2018 and was successful in relieving the distention. Patient's abdominal distention recurred after 1 day of colonoscopy. Patient needs evaluation from speech/swallow for aspiration. CT abdomen also shows bibasilar infiltrates, superimposed on chronic scarring and bronchiectasis worse at the left lung base. On IV Zosyn for aspiration pneumonia. 1. Aspiration pneumonia-on IV Zosyn. Speech therapy consult. Leukocytosis resolved. Afebrile. 2. Acute e.coli UTI-on IV Zosyn. 3. Acute on chronic hypokalemia-replaced per protocol. History of recurrent hypokalemia. On IV fluid with KCl and also Neutra-Phos. 4. Recurrent abdominal distention-Dr. Saleem following. 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 To undergo depressive colonoscopy today. Plan to place rectal tube. Further management per general surgery. Severe hypokalemia and hypophosphatemia: Repeat potassium is normal. 5. Chronic atrial fibrillation on anticoagulation with Coumadin-continue amiodarone, Coumadin, carvedilol. 6. CAD status post CABG-continue Coumadin, statin, beta-kathleen. 7. Chronic systolic CHF/ischemic cardiomyopathy- Echo with EF 40% as noted above. 8. Peripheral arterial disease status post lower extremity stents-continue statin. Coumadin on hold. 9. Hypertension-stable, continue home regimen. 10. Hyperlipidemia-continue statin. 11. Hypothyroidism-Continue Synthroid regimen. 12. Iron deficiency anemia-stable. 13. BPH-continue Flomax regimen. 14. Depression-continue sertraline regimen. 15. Debility- reports patient requiring significant care at home. Patient and family refused SNF during recent admission. PT/OT. 16. Moderate to severe protein calorie malnutrition-nutrition consult. 17. New-onset type 2 diabetes mellitus-Hemoglobin A1c 7.6%. Hold metformin. Accu-Cheks AC at bedtime with sliding scale insulin. 18. Chronic kidney disease stage III-stable, trend BMP. 19. Recent acute right midbrain infarct, history of prior CVA of the left occipital-continue aspirin, statin. Coumadin on hold. PT/OT/ST. 20. Chronic gluteal decubitus ulcers, present on admission-frequent position changes. Wound RN consult. DVT prophylaxis- SCDs.
--- NOTE | 2018-03-27 16:07 | CASEMGMT ---
JARRED spoke with patient's regarding Hospice/Palliative Care. She said he is having a procedure on Friday. She said she would like some time to think about things and see how Friday's procedure goes. She asked JARRED to follow up with her on Friday. Kay JOHNSON MSW
[2018-03-27 16:35] LABS: Bedside Glucose 118 mg/dL (70-110)
--- NOTE | 2018-03-27 16:36 | PCM.PN.SRG ---
Patient Problems: Active and Suspected Problems Aspiration pneumonitis (Acute) Abdominal distension (gaseous) (Acute) Subjective: Patient remains distended. No reported bowel movements over the last 24 hours. Not complaining of any abdominal pain. Objective: Abdomen greatly distended tympanitic no peritoneal signs identified. - Physical Exam Vital Signs Temp Pulse Resp BP Pulse Ox 98.7 F 78 18 146/91 H 98 03/27/18 15:38 03/27/18 15:38 03/27/18 15:38 03/27/18 15:38 03/27/18 15:38 Oxygen Flow Rate (L/min) 2 Oxygen Delivery Method Room Air Weight: 188 lb 4.396 oz Body Mass Index (BMI) 24.1 Finger Stick Blood Glucose 105 Intake and Output for Last 24 Hours 03/25/18 03/26/18 03/27/18 23:59 23:59 23:59 Intake Total 4267.8 / 4267.8 1059.8 / 1059.8 1304.4 / 1304.4 Output Total 1275 / 1275 475 / 475 500 / 500 Balance 2992.8 / 2992.8 584.8 / 584.8 804.4 / 804.4 Microbiology Past 72 Hours 03/20/18 15:03 Blood Culture - Final Blood Culture (Wb) - Left Forearm No growth in 5 days. 03/20/18 14:45 Blood Culture - Final Blood Culture (Wb) - Anticubital Left No growth in 5 days. Laboratory Tests Past 24 Hrs 03/27/18 03/27/18 03/27/18 00:25 06:16 11:30 PT 41.6 H INR 4.3 H* Sodium 141 145 Potassium 4.1 3.9 Chloride 111 H 111 H Carbon Dioxide 22.0 24.0 Anion Gap 8 10 BUN 7 6 L Creatinine 0.80 0.80 Estim Creat Clear Calc 97.04 97.04 Est GFR (MDRD) Af Amer 122 121 Est GFR (MDRD) Non-Af 101 100 BUN/Creatinine Ratio 8.8 L 7.5 L Glucose 120 H 107 H Calcium 7.6 L 7.7 L POC Glucose 03/27/18 03/27/18 03/27/18 16:26 12:13 06:52 POC Glucose 118 H 114 H 104 03/26/18 03/26/18 21:48 18:12 POC Glucose 127 H 111 H Medical Necessity - Tobacco Use Smoking Status: Unknown if ever smoked Tobacco Use: Cigarettes Assessment/Plan All Active Problems Aspiration pneumonitis (Acute) Abdominal distension (gaseous) (Acute) Bilateral leg ulcer (Resolved) GI bleeding (Resolved) We are going to try to get the patient to sit on a bedside commode to see if this will start him having bowel movements. If this is unsuccessful more than likely on Friday I will do a decompressive colonoscopy and place a 30 Cameroonian chest tube into the the rectal area and tape it to his skin. This might alleviate some of the gas. From a surgical standpoint he has significant mortality risk here was [facility] [place]. Even if doing a cecostomy tube versus a colostomy he is in such poor nutritional status he is at risk for nothing healing.
[2018-03-27] MEDS: Atorvastatin Calcium 40 MG Tablet PO (22:31)
[2018-03-27] MEDS: Tamsulosin HCl 0.4 MG Capsule PO (22:31)
[2018-03-27 22:51] LABS: Bedside Glucose 114 mg/dL (70-110)
[2018-03-28] VITALS (15 sets, daily range): BP systolic 115–145; BP diastolic 65–84; PULSE 78–87; RESP 14–20; TEMP 36.6–36.9; O2SAT 93–97; BMI 24.1
[2018-03-28] MEDS: Haloperidol Lactate 5 MG/ML Vial 2 MG IM (00:35)
[2018-03-28] MEDS: Potassium Chloride 40 MEQ in 0.45% Normal Saline 1,000 ML 75 MEQ IV ×2 (00:39→14:42)
[2018-03-28] MEDS: Levothyroxine 88 MCG Tablet PO (05:16)
[2018-03-28] MEDS: Piperacil/Tazobactam 3.375 GM/50 ML ML IV ×3 (05:16→21:45)
[2018-03-28 06:19] LABS: Absolute Lymphocyte Count 1.24 X10^3/ul (0.83-4.51); Absolute Neutrophil Count 7.9 X10^3/uL (2.0-7.7); Basophil# 0.04 X10^3/uL; Basophil% 0.4 % (0-1); Eosinophil# 0.16 X10^3/uL; Eosinophils% 1.5 % (0-5); Hematocrit 33.4 % (40-54); Hemoglobin 10.5 g/dl (13.0-16.5); Lymphocyte # 1.24 X10^3/ul (4.0); Lymphocyte % 11.9 % (19-41); Mean Corp Hgb Conc 31.4 g/gl (32-36); Mean Corpuscular Hgb 28.1 pg (27.0-32.0); Mean Corpuscular Volume 89.3 fL (80-94); Monocyte# 0.98 X10^3/uL; Monocyte% 9.4 % (0-10); Neutrophil # 7.85 X10^3/uL (2.7-7.7); Neutrophil % 75.5 % (47-70); Platelet Count 298 K/mm3 (150-450); RBC Distribution Width CV 16.1 % (11.6-14.6); RBC Distribution Width SD 50.8 fl (35.1-43.9); Red Blood Count 3.74 M/mm3 (4.6-6.2); White Blood Count 10.4 K/mm3 (4.4-11.0)
[2018-03-28 06:27] LABS: POSITIVE COUNT NO; POSITIVE DIFFERENTIAL NO; POSITIVE MORPHOLOGY NO
[2018-03-28] MEDS: Ipratropium/Albuterol Sulfate 3 ML AMPUL.NEB INHALATION ×4 (06:31→19:05)
[2018-03-28 06:41] LABS: Anion Gap 11 (5-15); BUN 9 mg/dL (7-18); BUN/Creat Ratio 8.9 RATIO (10-20); Calcium,Total 7.9 mg/dL (8.5-10.1); Chloride 111 mmol/L (98-107); Creatinine, Serum 1.01 mg/dL (0.70-1.30); EST Glomerular Filtration Rate 77 mL/min (>60); Est Glom Filt Rate - Afr Amer 93 mL/min (>60); Estimated Creatinine Clearance 76.86 ml/min; Glucose 107 mg/dL (74-106); Potassium 3.6 mmol/L (3.5-5.1); Sodium Level 144 mmol/L (136-145)
[2018-03-28 06:55] LABS: Bedside Glucose 100 mg/dL (70-110)
[2018-03-28] MEDS: Na Biphos/Potassium Phosphate PACKET 1 PACKET PO ×3 (09:15→16:11)
[2018-03-28] MEDS: Amiodarone 200 MG Tablet PO (09:16)
[2018-03-28] MEDS: Carvedilol 12.5 MG Tablet PO ×2 (09:16→21:48)
[2018-03-28] MEDS: Docusate Sodium 100 MG Capsule PO (09:16)
[2018-03-28] MEDS: Polyethylene Glycol 3350 17 GM PACKET PO (09:16)
[2018-03-28] MEDS: Bisacodyl 10 MG Suppository RECTAL (09:17)
[2018-03-28] MEDS: Sertraline 50 MG Tablet PO (09:17)
[2018-03-28] MEDS: Menthol/Lanolin/Calamine/Znox 113 GM Tube 1 APPLIC TOPICAL ×2 (09:27→21:51)
--- NOTE | 2018-03-28 10:41 | PN.SURG_ITS ---
Patient Problems: Active and Suspected Problems Aspiration pneumonitis (Acute) Abdominal distension (gaseous) (Acute) Subjective: No reported history of bowel movements. Patient is non-verbal this morning. Objective: Abdomen remains distended and tympanitic. - Physical Exam Vital Signs Temp Pulse Resp BP Pulse Ox 98.2 F 86 14 115/65 96 03/28/18 09:10 03/28/18 09:10 03/28/18 09:10 03/28/18 09:10 03/28/18 09:10 Oxygen Flow Rate (L/min) 2 Oxygen Delivery Method Room Air Weight: 188 lb 4.396 oz Body Mass Index (BMI) 24.1 Finger Stick Blood Glucose 105 Intake and Output for Last 24 Hours 03/26/18 03/27/18 03/28/18 23:59 23:59 23:59 Intake Total 1059.8 / 1059.8 3070.0 / 3070.0 120 / 120 Output Total 475 / 475 1050 / 1050 350 / 350 Balance 584.8 / 584.8 2020.0 / 2020.0 -230 / -230 Microbiology Past 72 Hours 03/20/18 15:03 Blood Culture - Final Blood Culture (Wb) - Left Forearm No growth in 5 days. 03/20/18 14:45 Blood Culture - Final Blood Culture (Wb) - Anticubital Left No growth in 5 days. Laboratory Tests Past 24 Hrs 03/27/18 03/28/18 03/28/18 11:30 05:35 05:35 WBC 10.4 RBC 3.74 L Hgb 10.5 L Hct 33.4 L MCV 89.3 MCH 28.1 MCHC 31.4 L RDW 16.1 H RDW Differential 50.8 H Plt Count 298 MPV 9.0 Immature Gran % (Auto) 1.300 H Neut % (Auto) 75.5 H Lymph % (Auto) 11.9 L [place] % (Auto) 9.4 Eos % (Auto) 1.5 Baso % (Auto) 0.4 Absolute Neuts (auto) 7.9 H Absolute Lymphs (auto) 1.24 Total Counted Not Reportable PT 41.6 H INR 4.3 H* Sodium 144 Potassium 3.6 Chloride 111 H Carbon Dioxide 22.0 Anion Gap 11 BUN 9 Creatinine 1.01 Estim Creat Clear Calc 76.86 Est GFR (MDRD) Af Amer 93 Est GFR (MDRD) Non-Af 77 BUN/Creatinine Ratio 8.9 L Glucose 107 H Calcium 7.9 L POC Glucose 03/28/18 03/27/18 03/27/18 06:49 22:26 16:26 POC Glucose 100 114 H 118 H 03/27/18 12:13 POC Glucose 114 H Medical Necessity - Tobacco Use Smoking Status: Unknown if ever smoked Tobacco Use: Cigarettes Assessment/Plan All Active Problems Aspiration pneumonitis (Acute) Abdominal distension (gaseous) (Acute) Bilateral leg ulcer (Resolved) GI bleeding (Resolved) We are going to try to get the patient to sit on a bedside commode to see if this will start him having bowel movements. If this is unsuccessful more than likely on Friday I will do a decompressive colonoscopy and place a 30 Beninese chest tube into the the rectal area and tape it to his skin. This might alleviate some of the gas. From a surgical standpoint he has significant mortality risk here was [facility] [place]. Even if doing a cecostomy tube versus a colostomy he is in such poor nutritional status he is at risk for nothing healing.
[2018-03-28 11:21] LABS: Bedside Glucose 98 mg/dL (70-110)
--- NOTE | 2018-03-28 14:28 | PCM.PROGNOTE ---
<Maribell Evans - Last Filed: 03/28/18 14:42> Patient Problems: Active and Suspected Problems Aspiration pneumonitis (Acute) Abdominal distension (gaseous) (Acute) Subjective: Patient seen and examined. Denies further complaints. Abdomen continues to be distended. Patient denies bowel movements/flatus. Drowsy this morning, does not open eyes during conversation. - Physical Exam General: Alert, Cooperative, No apparent distress HEENT: Atraumatic, PERRLA, EOMI, Normocephalic Oral: Dry Mucosa Neck: Supple, No JVD, Negative Carotid Bruits Lungs: Diminished, Rales Cardiovascular: - - Atrial for ablation, rate controlled Abdomen: Hypoactive Bowel Sounds, Distended, - - Firm, tympanic Extremities: No clubbing, No cyanosis, No edema, Capillary Refill Less than 3 Seconds Skin: No rashes, No breakdown, - - Chronic decubitus ulcers buttocks Musculoskeletal: No Tenderness to Palpation of Joints or Extremities Neurological: Cranial nerves II-XII grossly intact Psych/Mental Status: Flat Affect Vital Signs Temp Pulse Resp BP Pulse Ox 98.2 F 81 16 115/65 93 03/28/18 09:10 03/28/18 11:07 03/28/18 10:46 03/28/18 09:10 03/28/18 10:47 Oxygen Flow Rate (L/min) 2 Oxygen Delivery Method Room Air Weight: 188 lb 4.396 oz Body Mass Index (BMI) 24.1 Finger Stick Blood Glucose 105 Intake and Output for Last 24 Hours 03/26/18 03/27/18 03/28/18 23:59 23:59 23:59 Intake Total 1059.8 / 1059.8 3070.0 / 3070.0 1269 / 1269 Output Total 475 / 475 1050 / 1050 950 / 950 Balance 584.8 / 584.8 2020.0 / 2020.0 319 / 319 Microbiology Past 72 Hours 03/20/18 15:03 Blood Culture - Final Blood Culture (Wb) - Left Forearm No growth in 5 days. 03/20/18 14:45 Blood Culture - Final Blood Culture (Wb) - Anticubital Left No growth in 5 days. Laboratory Tests Past 24 Hrs 03/28/18 03/28/18 05:35 05:35 WBC 10.4 RBC 3.74 L Hgb 10.5 L Hct 33.4 L MCV 89.3 MCH 28.1 MCHC 31.4 L RDW 16.1 H RDW Differential 50.8 H Plt Count 298 MPV 9.0 Immature Gran % (Auto) 1.300 H Neut % (Auto) 75.5 H Lymph % (Auto) 11.9 L [place] % (Auto) 9.4 Eos % (Auto) 1.5 Baso % (Auto) 0.4 Absolute Neuts (auto) 7.9 H Absolute Lymphs (auto) 1.24 Total Counted Not Reportable Sodium 144 Potassium 3.6 Chloride 111 H Carbon Dioxide 22.0 Anion Gap 11 BUN 9 Creatinine 1.01 Estim Creat Clear Calc 76.86 Est GFR (MDRD) Af Amer 93 Est GFR (MDRD) Non-Af 77 BUN/Creatinine Ratio 8.9 L Glucose 107 H Calcium 7.9 L POC Glucose 03/28/18 03/28/18 03/27/18 11:11 06:49 22:26 POC Glucose 98 100 114 H 03/27/18 16:26 POC Glucose 118 H Medical Necessity - Tobacco Use Smoking Status: Unknown if ever smoked Tobacco Use: Cigarettes Assessment/Plan All Active Problems Aspiration pneumonitis (Acute) Abdominal distension (gaseous) (Acute) Bilateral leg ulcer (Resolved) GI bleeding (Resolved) 1. Aspiration pneumonia-on IV Zosyn. Speech therapy consult. Leukocytosis resolved. Afebrile. 2. Acute e.coli UTI-on IV Zosyn. 3. Acute on chronic hypokalemia-replaced per protocol. History of recurrent hypokalemia. Home supplemental potassium increased to 40 mEq twice daily. Resolved. 4. Recurrent abdominal distention-Dr. Saleem following. Suspected [place]'s syndrome. Plan for patient to sit on bedside commode to see if this will facilitate a bowel movement. If this is not successful today, plan is for decompressive colonoscopy tomorrow and place 30 Czech chest tube into the rectal area to alleviate gas. 5. Chronic atrial fibrillation on anticoagulation with Coumadin-continue amiodarone, Coumadin, carvedilol. 6. CAD status post CABG-continue Coumadin, statin, beta-kathleen. 7. Chronic systolic CHF/ischemic cardiomyopathy- Echo with EF 40% as noted above. 8. Peripheral arterial disease status post lower extremity stents-continue statin. Coumadin on hold. 9. Hypertension-stable, continue home regimen. 10. Hyperlipidemia-continue statin. 11. Hypothyroidism-Continue Synthroid regimen. 12. Iron deficiency anemia-stable. 13. BPH-continue Flomax regimen. 14. Depression-continue sertraline regimen. 15. Debility- reports patient requiring significant care at home. Patient and family refused SNF during recent admission. PT/OT. 16. Moderate to severe protein calorie malnutrition-nutrition consult. 17. New-onset type 2 diabetes mellitus-Hemoglobin A1c 7.6%. Hold metformin. Accu-Cheks AC at bedtime with sliding scale insulin. 18. Chronic kidney disease stage III-stable, trend BMP. 19. Recent acute right midbrain infarct, history of prior CVA of the left occipital-continue aspirin, statin. Coumadin on hold. PT/OT/ST. 20. Chronic gluteal decubitus ulcers, present on admission-frequent position changes. Wound RN consult. DVT prophylaxis- SCDs. Discharge planning: Home with home health. declining SNF, hospice. This patient was seen by RICHELLE Lovelace under the supervision of Dr. East. <Mike East - Last Filed: 03/28/18 17:09> Subjective: Seen and examined. Drowsy in the morning. Patient is sleeping. The abdominal distention. Discussed with Dr. Saleem. - Physical Exam General: Lethargic, - HEENT: Atraumatic, EOMI, Normocephalic Oral: Dry Mucosa Neck: Supple, No JVD, Negative Carotid Bruits Lungs: Diminished, Rales Cardiovascular: Regular rate, No murmurs, - Abdomen: Bowel Sounds Present, Soft, Non Tender, Hypoactive Bowel Sounds, Distended, - Extremities: No edema, Capillary Refill Less than 3 Seconds Skin: - Musculoskeletal: No Tenderness to Palpation of Joints or Extremities, Arthritic Changes, Muscle Wasting Neurological: Cranial nerves II-XII grossly intact, - Psych/Mental Status: Normal Affect, Appropriate Vital Signs Temp Pulse Resp BP Pulse Ox 98.4 F 87 14 137/71 H 97 03/28/18 15:02 03/28/18 15:02 03/28/18 15:02 03/28/18 15:02 03/28/18 15:02 Oxygen Flow Rate (L/min) 2 Oxygen Delivery Method Room Air Weight: 188 lb 4.396 oz Body Mass Index (BMI) 24.1 Finger Stick Blood Glucose 105 Intake and Output for Last 24 Hours 03/26/18 03/27/18 03/28/18 23:59 23:59 23:59 Intake Total 1059.8 / 1059.8 3070.0 / 3070.0 1269 / 1269 Output Total 475 / 475 1050 / 1050 950 / 950 Balance 584.8 / 584.8 2020.0 / 2020.0 319 / 319 Microbiology Past 72 Hours 03/20/18 15:03 Blood Culture - Final Blood Culture (Wb) - Left Forearm No growth in 5 days. 03/20/18 14:45 Blood Culture - Final Blood Culture (Wb) - Anticubital Left No growth in 5 days. Laboratory Tests Past 24 Hrs 03/28/18 03/28/18 05:35 05:35 WBC 10.4 RBC 3.74 L Hgb 10.5 L Hct 33.4 L MCV 89.3 MCH 28.1 MCHC 31.4 L RDW 16.1 H RDW Differential 50.8 H Plt Count 298 MPV 9.0 Immature Gran % (Auto) 1.300 H Neut % (Auto) 75.5 H Lymph % (Auto) 11.9 L [place] % (Auto) 9.4 Eos % (Auto) 1.5 Baso % (Auto) 0.4 Absolute Neuts (auto) 7.9 H Absolute Lymphs (auto) 1.24 Total Counted Not Reportable Sodium 144 Potassium 3.6 Chloride 111 H Carbon Dioxide 22.0 Anion Gap 11 BUN 9 Creatinine 1.01 Estim Creat Clear Calc 76.86 Est GFR (MDRD) Af Amer 93 Est GFR (MDRD) Non-Af 77 BUN/Creatinine Ratio 8.9 L Glucose 107 H Calcium 7.9 L POC Glucose 03/28/18 03/28/18 03/28/18 16:15 11:11 06:49 POC Glucose 92 98 100 03/27/18 22:26 POC Glucose 114 H Assessment/Plan This patient was seen in conjunction with SCIENTIFIC DIRECTOR, Maribell. I have independently interviewed and examined the patient and reviewed pertinent history, examination findings, laboratory and plan of management. I have reviewed the note and agree with the documented findings with the few additional points. In brief, patient is admitted for vomiting and coughing with concern for aspiration, most likely from abdominal distention and reflux aspiration along with constipation. Discussed with the patient's and daughters. Patient family refused for hospice or SNF. CT abdomen shows markedly distended colon down to the rectum with moderate amount of fecal material in the rectosigmoid colon. [place]'s syndrome is suspected. Patient had colonoscopy on 03/23/2018 and was successful in relieving the distention. Patient needs evaluation from speech/swallow for aspiration. CT abdomen also shows bibasilar infiltrates, superimposed on chronic scarring and bronchiectasis worse at the left lung base. On IV Zosyn for aspiration pneumonia. Severe hypokalemia and hypophosphatemia: K2.6, repeat magnesium 1.8. Phosphorus 1.7. After replacement K is 3.3. Electrolytes are on replacement. I have discussed my assessment with SCIENTIFIC DIRECTORMaribell and orders have been reviewed. Code Visit Inpatient E&M: 60413 Subs Hosp L3
[2018-03-28 16:25] LABS: Bedside Glucose 92 mg/dL (70-110)
[2018-03-28] MEDS: Tamsulosin HCl 0.4 MG Capsule PO (21:48)
[2018-03-28] MEDS: Atorvastatin Calcium 40 MG Tablet PO (21:48)
[2018-03-28 22:06] LABS: Bedside Glucose 93 mg/dL (70-110)
[2018-03-29] VITALS (17 sets, daily range): BP systolic 84–155; BP diastolic 51–89; PULSE 66–85; RESP 14–18; TEMP 36.1–36.9; O2SAT 93–100
[2018-03-29] MEDS: Potassium Chloride 40 MEQ in 0.45% Normal Saline 1,000 ML 75 MEQ IV (03:47)
[2018-03-29] MEDS: Piperacil/Tazobactam 3.375 GM/50 ML ML IV (05:25)
[2018-03-29] MEDS: Levothyroxine 88 MCG Tablet PO (05:29)
[2018-03-29 06:57] LABS: Anion Gap 9 (5-15); BUN 10 mg/dL (7-18); BUN/Creat Ratio 11.1 RATIO (10-20); Calcium,Total 7.8 mg/dL (8.5-10.1); Chloride 111 mmol/L (98-107); EST Glomerular Filtration Rate 88 mL/min (>60); Est Glom Filt Rate - Afr Amer 106 mL/min (>60); Estimated Creatinine Clearance 86.26 ml/min; Glucose 79 mg/dL (74-106); Potassium 3.5 mmol/L (3.5-5.1); Sodium Level 144 mmol/L (136-145)
[2018-03-29 06:58] LABS: Absolute Lymphocyte Count 1.32 X10^3/ul (0.83-4.51); Absolute Neutrophil Count 6.7 X10^3/uL (2.0-7.7); Basophil# 0.06 X10^3/uL; Basophil% 0.6 % (0-1); Eosinophils% 2.1 % (0-5); Hematocrit 33.4 % (40-54); Hemoglobin 10.4 g/dl (13.0-16.5); Lymphocyte # 1.32 X10^3/ul (4.0); Mean Corp Hgb Conc 31.1 g/gl (32-36); Mean Corpuscular Volume 89.8 fL (80-94); Mean Platelet Vol. 8.9 fl (6.2-12.0); Monocyte% 11.6 % (0-10); Neutrophil # 6.65 X10^3/uL (2.7-7.7); Neutrophil % 70.4 % (47-70); Platelet Count 278 K/mm3 (150-450); RBC Distribution Width CV 16.5 % (11.6-14.6); RBC Distribution Width SD 52.8 fl (35.1-43.9); Red Blood Count 3.72 M/mm3 (4.6-6.2); White Blood Count 9.5 K/mm3 (4.4-11.0)
[2018-03-29 06:59] LABS: POSITIVE COUNT NO; POSITIVE DIFFERENTIAL NO; POSITIVE MORPHOLOGY NO
[2018-03-29 07:03] LABS: Prothrombin Time (Protime)PT. 42.5 SECONDS (11.7-14.9)
[2018-03-29] MEDS: Ipratropium/Albuterol Sulfate 3 ML AMPUL.NEB INHALATION ×2 (07:03→18:57)
[2018-03-29 07:09] LABS: International Normalized Ratio 4.4
[2018-03-29 07:16] LABS: Bedside Glucose 77 mg/dL (70-110)
[2018-03-29] MEDS: Sertraline 50 MG Tablet PO (10:44)
[2018-03-29] MEDS: Na Biphos/Potassium Phosphate PACKET 1 PACKET PO ×3 (10:44→16:24)
[2018-03-29] MEDS: Amiodarone 200 MG Tablet PO (10:44)
[2018-03-29] MEDS: Carvedilol 12.5 MG Tablet PO ×2 (10:45→21:40)
[2018-03-29] MEDS: Polyethylene Glycol 3350 17 GM PACKET PO (10:45)
[2018-03-29] MEDS: Menthol/Lanolin/Calamine/Znox 113 GM Tube 1 APPLIC TOPICAL ×2 (10:46→21:41)
[2018-03-29] MEDS: Docusate Sodium 100 MG/10 ML UDC PO ×2 (10:46→21:40)
--- NOTE | 2018-03-29 11:09 | PN_ITS ---
<Maribell Evans - Last Filed: 03/29/18 11:33> Patient Problems: Active and Suspected Problems Aspiration pneumonitis (Acute) Abdominal distension (gaseous) (Acute) Subjective: Patient seen and examined. Patient underwent decompressive colonoscopy this morning with significant improvement in abdominal distention. Abdomen now flat, soft. Patient denies current complaints. - Physical Exam General: Cooperative, No apparent distress, - - Drowsy HEENT: Atraumatic, PERRLA, EOMI, Normocephalic Oral: Dry Mucosa Neck: Supple, No JVD, Negative Carotid Bruits Lungs: Clear to auscultation, Diminished Cardiovascular: - Abdomen: Bowel Sounds Present, Soft - Atrial fibrillation, rate controlled, Non Tender, Non-Distended Extremities: No clubbing, No cyanosis, No edema, Capillary Refill Less than 3 Seconds Skin: - - Chronic decubitus ulcers buttocks Musculoskeletal: No Tenderness to Palpation of Joints or Extremities Neurological: Cranial nerves II-XII grossly intact Psych/Mental Status: Flat Affect Vital Signs Temp Pulse Resp BP Pulse Ox 97.6 F L 76 14 129/64 H 98 03/29/18 09:28 03/29/18 09:28 03/29/18 09:28 03/29/18 09:28 03/29/18 09:28 Oxygen Flow Rate (L/min) 2 Oxygen Delivery Method Room Air Weight: 188 lb 4.396 oz Body Mass Index (BMI) 24.1 Finger Stick Blood Glucose 105 Intake and Output for Last 24 Hours 03/27/18 03/28/18 03/29/18 23:59 23:59 23:59 Intake Total 3070.0 / 3070.0 1891 / 1891 1697 / 1697 Output Total 1050 / 1050 1225 / 1225 450 / 450 Balance 2020.0 / 2020.0 666 / 666 1247 / 1247 Laboratory Tests Past 24 Hrs 03/29/18 03/29/18 03/29/18 05:56 05:56 05:56 WBC 9.5 RBC 3.72 L Hgb 10.4 L Hct 33.4 L MCV 89.8 MCH 28.0 MCHC 31.1 L RDW 16.5 H RDW Differential 52.8 H Plt Count 278 MPV 8.9 Immature Gran % (Auto) 1.300 H Neut % (Auto) 70.4 H Lymph % (Auto) 14.0 L Boone % (Auto) 11.6 H Eos % (Auto) 2.1 Baso % (Auto) 0.6 Absolute Neuts (auto) 6.7 Absolute Lymphs (auto) 1.32 Total Counted Not Reportable PT 42.5 H INR 4.4 H* Sodium 144 Potassium 3.5 Chloride 111 H Carbon Dioxide 24.0 Anion Gap 9 BUN 10 Creatinine 0.90 Estim Creat Clear Calc 86.26 Est GFR (MDRD) Af Amer 106 Est GFR (MDRD) Non-Af 88 BUN/Creatinine Ratio 11.1 Glucose 79 Calcium 7.8 L POC Glucose 03/29/18 03/28/18 03/28/18 06:48 21:55 16:15 POC Glucose 77 93 92 03/28/18 11:11 POC Glucose 98 Medical Necessity - Tobacco Use Smoking Status: Unknown if ever smoked Tobacco Use: Cigarettes Assessment/Plan All Active Problems Aspiration pneumonitis (Acute) Abdominal distension (gaseous) (Acute) Bilateral leg ulcer (Resolved) GI bleeding (Resolved) 1. Aspiration pneumonia-completed 5 days of IV Zosyn. Speech therapy consult. Leukocytosis resolved. Afebrile. Transition to augmentin 875mg po BID x2 days. 2. Acute e.coli UTI-received IV Zosyn. Transition to Augmentin as noted above. 3. Acute on chronic hypokalemia-replaced per protocol. History of recurrent hypokalemia. Home supplemental potassium increased to 40 mEq twice daily. Resolved. Trend BMP. 4. Recurrent abdominal distention-Dr. Saleem following. 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 Decompressive colonoscopy today, chest tube was placed into the rectal area to alleviate gas. Patient's abdomen significantly improved. Abdomen flat, nondistended, soft. Continue to monitor. 5. Chronic atrial fibrillation on anticoagulation with Coumadin-continue amiodarone, carvedilol. Coumadin on hold given supratherapeutic INR. 6. CAD status post CABG-continue statin, beta-kathleen. 7. Chronic systolic CHF/ischemic cardiomyopathy- Echo with EF 40% as noted above. 8. Peripheral arterial disease status post lower extremity stents-continue statin. Coumadin on hold. 9. Hypertension-stable, continue home regimen. 10. Hyperlipidemia-continue statin. 11. Hypothyroidism-Continue Synthroid regimen. 12. Iron deficiency anemia-stable. 13. BPH-continue Flomax regimen. 14. Depression-continue sertraline regimen. 15. Debility- reports patient requiring significant care at home. Patient and family refused SNF during recent admission. PT/OT. 16. Moderate to severe protein calorie malnutrition-nutrition consult. 17. New-onset type 2 diabetes mellitus-Hemoglobin A1c 7.6%. Hold metformin. Accu-Cheks AC at bedtime with sliding scale insulin. 18. Chronic kidney disease stage III-stable, trend BMP. 19. Recent acute right midbrain infarct, history of prior CVA of the left occipital-continue aspirin, statin. Coumadin on hold. PT/OT/ST. 20. Chronic gluteal decubitus ulcers, present on admission-frequent position changes. Wound RN consult. DVT prophylaxis- SCDs. Discharge planning: Home with home health. declining SNF, hospice. This patient was seen by Maribell Evans NP-C under the supervision of Dr. East. <Mike East - Last Filed: 03/29/18 12:34> Subjective: Patient had decompressive colonoscopy with rectal tube placed. Abdomen is soft. No fever or chills. - Physical Exam General: Alert, Oriented x3, Cooperative HEENT: Atraumatic, PERRLA, EOMI, Normocephalic Neck: Supple, No JVD, Negative Carotid Bruits Lungs: Clear to auscultation, Diminished, Rales, Rhonchi Cardiovascular: Regular rate, Normal S1, Normal S2, No murmurs, Irregular Rate - A. fib Abdomen: Bowel Sounds Present, Soft, Non Tender Extremities: No edema, Capillary Refill Less than 3 Seconds Skin: - Musculoskeletal: No Tenderness to Palpation of Joints or Extremities, Arthritic Changes, Muscle Wasting Neurological: Cranial nerves II-XII grossly intact, Neuro grossly intact Psych/Mental Status: Normal Affect, Appropriate Vital Signs Temp Pulse Resp BP Pulse Ox 97.6 F L 75 14 129/64 H 98 03/29/18 09:28 03/29/18 11:00 03/29/18 09:28 03/29/18 09:28 03/29/18 09:28 Oxygen Flow Rate (L/min) 2 Oxygen Delivery Method Room Air Weight: 188 lb 4.396 oz Body Mass Index (BMI) 24.1 Finger Stick Blood Glucose 105 Intake and Output for Last 24 Hours 03/27/18 03/28/1819 23:59 23:59 23:59 Intake Total 3070.0 / 3070.0 189 / 1891 2015 Output Total 1050 / 1050 1225 / 1225 1150 / 1150 Balance 2020.0 / 2020.0 666 / 666 866 / 866 Laboratory Tests Past 24 Hrs 03/29/18 03/29/18 03/29/18 05:56 05:56 05:56 WBC 9.5 RBC 3.72 L Hgb 10.4 L Hct 33.4 L MCV 89.8 MCH 28.0 MCHC 31.1 L RDW 16.5 H RDW Differential 52.8 H Plt Count 278 MPV 8.9 Immature Gran % (Auto) 1.300 H Neut % (Auto) 70.4 H Lymph % (Auto) 14.0 L Boone % (Auto) 11.6 H Eos % (Auto) 2.1 Baso % (Auto) 0.6 Absolute Neuts (auto) 6.7 Absolute Lymphs (auto) 1.32 Total Counted Not Reportable PT 42.5 H INR 4.4 H* Sodium 144 Potassium 3.5 Chloride 111 H Carbon Dioxide 24.0 Anion Gap 9 BUN 10 Creatinine 0.90 Estim Creat Clear Calc 86.26 Est GFR (MDRD) Af Amer 106 Est GFR (MDRD) Non-Af 88 BUN/Creatinine Ratio 11.1 Glucose 79 Calcium 7.8 L POC Glucose 03/29/18 03/29/18 03/29/18 11:44 11:14 06:48 POC Glucose 101 68 L 77 03/28/18 03/28/18 21:55 16:15 POC Glucose 93 92 Assessment/Plan This patient was seen in conjunction with DIRECTOR FINANCIAL PLANNING, Maribell. I have independently interviewed and examined the patient and reviewed pertinent history, examination findings, laboratory and plan of management. I have reviewed the note and agree with the documented findings with the few additional points. In brief, patient is admitted for vomiting and coughing with concern for aspiration, most likely from abdominal distention and reflux aspiration along with constipation. Discussed with the patient's and daughters. Patient family refused for hospice or SNF. CT abdomen shows markedly distended colon down to the rectum with moderate amount of fecal material in the rectosigmoid colon. 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 Patient had colonoscopy on 03/23/2018 and was successful in relieving the distention. Patient had repeat colonoscopy and rectal tube placement on 03/29/2018. CT abdomen also shows bibasilar infiltrates, superimposed on chronic scarring and bronchiectasis worse at the left lung base. Had 5 days of IV Zosyn for aspiration pneumonia. Switch to Augmentin for 2 more days Mild hypokalemia: K3.5 electrolytes are on replacement. I have discussed my assessment with DIRECTOR FINANCIAL PLANNINGMaribell and orders have been reviewed. Code Visit Inpatient E&M: 13851 Subs Hosp L3
[2018-03-29 11:20] LABS: Bedside Glucose 68 mg/dL (70-110)
[2018-03-29] MEDS: Dextrose 50%-Water 25 GM/50 ML DISP.SYRIN IV (11:27)
[2018-03-29 11:51] LABS: Bedside Glucose 101 mg/dL (70-110)
[2018-03-29] MEDS: Dextrose 5%/0.9% NaCl 1,000 ML 75 ML IV (12:15)
[2018-03-29] MEDS: Amox/Clavulanate 875 MG Tablet PO (16:20)
[2018-03-29 16:35] LABS: Bedside Glucose 91 mg/dL (70-110)
[2018-03-29] MEDS: Atorvastatin Calcium 40 MG Tablet PO (21:40)
[2018-03-29] MEDS: Tamsulosin HCl 0.4 MG Capsule PO (21:40)
[2018-03-29 21:56] LABS: Bedside Glucose 113 mg/dL (70-110)
[2018-03-30] VITALS (12 sets, daily range): BP systolic 108–135; BP diastolic 55–89; PULSE 58–75; RESP 16–20; TEMP 36.4–37; O2SAT 90–100
[2018-03-30] MEDS: Dextrose 5%/0.9% NaCl 1,000 ML 75 ML IV ×2 (00:41→16:05)
[2018-03-30] MEDS: Levothyroxine 88 MCG Tablet PO (05:53)
[2018-03-30 07:06] LABS: Bedside Glucose 113 mg/dL (70-110)
[2018-03-30] MEDS: Ipratropium/Albuterol Sulfate 3 ML AMPUL.NEB INHALATION ×2 (07:12→18:46)
[2018-03-30 07:21] LABS: Prothrombin Time (Protime)PT. 38.8 SECONDS (11.7-14.9)
[2018-03-30 07:24] LABS: International Normalized Ratio 3.9
[2018-03-30 07:45] LABS: Anion Gap 9 (5-15); BUN 8 mg/dL (7-18); BUN/Creat Ratio 9.6 RATIO (10-20); Calcium,Total 7.3 mg/dL (8.5-10.1); Chloride 113 mmol/L (98-107); Creatinine, Serum 0.83 mg/dL (0.70-1.30); EST Glomerular Filtration Rate 96 mL/min (>60); Est Glom Filt Rate - Afr Amer 116 mL/min (>60); Estimated Creatinine Clearance 93.53 ml/min; Glucose 118 mg/dL (74-106); Potassium 2.7 mmol/L (3.5-5.1); Sodium Level 145 mmol/L (136-145)
--- NOTE | 2018-03-30 08:06 | PN.SURG_ITS ---
Patient Problems: Active and Suspected Problems Aspiration pneumonitis (Acute) Abdominal distension (gaseous) (Acute) Subjective: Patient evaluated resting comfortably in bed. Patient denies abdominal discomfort. He denies nausea, vomiting. - Physical Exam General: Alert, Cooperative Abdomen: Soft, Non Tender, Hypoactive Bowel Sounds, Distended - Moderately, - - Rectal tube in place. Vital Signs Temp Pulse Resp BP Pulse Ox 97.8 F 75 18 135/60 H 90 03/30/18 03:28 03/30/18 07:30 03/30/18 07:10 03/30/18 03:28 03/30/18 07:38 Oxygen Flow Rate (L/min) 2 Oxygen Delivery Method Room Air Weight: 188 lb 4.396 oz Body Mass Index (BMI) 24.1 Finger Stick Blood Glucose 105 Intake and Output for Last 24 Hours 03/28/18 03/29/18 03/30/18 23:59 23:59 23:59 Intake Total 1891 / 1891 2800 / 2800 1162 / 1162 Output Total 1225 / 1225 2100 / 2100 850 / 850 Balance 666 / 666 700 / 700 312 / 312 Laboratory Tests Past 24 Hrs 03/30/18 03/30/18 06:23 06:23 PT 38.8 H INR 3.9 H* Sodium 145 Potassium 2.7 L* Chloride 113 H Carbon Dioxide 23.0 Anion Gap 9 BUN 8 Creatinine 0.83 Estim Creat Clear Calc 93.53 Est GFR (MDRD) Af Amer 116 Est GFR (MDRD) Non-Af 96 BUN/Creatinine Ratio 9.6 L Glucose 118 H Calcium 7.3 L POC Glucose 03/30/18 03/29/18 03/29/18 07:01 21:39 16:31 POC Glucose 113 H 113 H 91 03/29/18 03/29/18 11:44 11:14 POC Glucose 101 68 L Medical Necessity - Tobacco Use Smoking Status: Unknown if ever smoked Tobacco Use: Cigarettes Assessment/Plan All Active Problems Aspiration pneumonitis (Acute) Abdominal distension (gaseous) (Acute) Bilateral leg ulcer (Resolved) GI bleeding (Resolved) I am following this patient in conjunction with Dr. Saleem Impression: Jackeline's syndrome. Abdomen less distended this morning and softer. Rectal tube in place with Saldaña Continue bowel regimen We will continue to closely monitor this patient. Code Visit Inpatient E&M: 43545 [facility] Hosp L1
[2018-03-30] MEDS: Amox/Clavulanate 875 MG Tablet PO ×2 (09:52→17:18)
[2018-03-30] MEDS: Menthol/Lanolin/Calamine/Znox 113 GM Tube 1 APPLIC TOPICAL ×2 (09:52→21:00)
[2018-03-30] MEDS: Docusate Sodium 100 MG/10 ML UDC PO ×2 (09:52→21:00)
[2018-03-30] MEDS: Amiodarone 200 MG Tablet PO (09:53)
[2018-03-30] MEDS: Sertraline 50 MG Tablet PO (09:53)
[2018-03-30] MEDS: Polyethylene Glycol 3350 17 GM PACKET PO (09:53)
[2018-03-30] MEDS: Carvedilol 12.5 MG Tablet PO ×2 (09:54→21:00)
[2018-03-30 11:45] LABS: Bedside Glucose 121 mg/dL (70-110)
--- NOTE | 2018-03-30 14:23 | PN_ITS ---
<Maribell Evans - Last Filed: 03/30/18 14:23> Patient Problems: Active and Suspected Problems Aspiration pneumonitis (Acute) Abdominal distension (gaseous) (Acute) Subjective: Patient seen and examined. Continues to feel improved. Abdomen continues to be nondistended, soft. Denies current complaints. - Physical Exam General: Oriented x3, No apparent distress, - - Drowsy HEENT: Atraumatic, PERRLA, EOMI, Normocephalic Oral: Dry Mucosa Neck: Supple, No JVD, Negative Carotid Bruits Lungs: Clear to auscultation, Diminished Cardiovascular: - - Atrial fibrillation, rate controlled Abdomen: Bowel Sounds Present, Soft, Non Tender, Non-Distended Extremities: No clubbing, No cyanosis, No edema, Capillary Refill Less than 3 Seconds Skin: - - Chronic decubitus ulcers buttocks Musculoskeletal: No Tenderness to Palpation of Joints or Extremities Neurological: Cranial nerves II-XII grossly intact, Neuro grossly intact Psych/Mental Status: Flat Affect Vital Signs Temp Pulse Resp BP Pulse Ox 97.8 F 58 L 18 134/89 H 93 03/30/18 09:39 03/30/18 12:33 03/30/18 09:39 03/30/18 09:39 03/30/18 09:39 Oxygen Flow Rate (L/min) 2 Oxygen Delivery Method Room Air Weight: 188 lb 4.396 oz Body Mass Index (BMI) 24.1 Finger Stick Blood Glucose 105 Intake and Output for Last 24 Hours 03/28/18 03/29/18 03/30/18 23:59 23:59 23:59 Intake Total 1891 / 1891 2800 / 2800 1782 / 1782 Output Total 1225 / 1225 2100 / 2100 2250 / 2250 Balance 666 / 666 700 / 700 -468 / -468 Laboratory Tests Past 24 Hrs 03/30/18 03/30/18 06:23 06:23 PT 38.8 H INR 3.9 H* Sodium 145 Potassium 2.7 L* Chloride 113 H Carbon Dioxide 23.0 Anion Gap 9 BUN 8 Creatinine 0.83 Estim Creat Clear Calc 93.53 Est GFR (MDRD) Af Amer 116 Est GFR (MDRD) Non-Af 96 BUN/Creatinine Ratio 9.6 L Glucose 118 H Calcium 7.3 L POC Glucose 03/30/18 03/30/18 03/29/18 11:39 07:01 21:39 POC Glucose 121 H 113 H 113 H 03/29/18 16:31 POC Glucose 91 Medical Necessity - Tobacco Use Smoking Status: Unknown if ever smoked Tobacco Use: Cigarettes Assessment/Plan All Active Problems Aspiration pneumonitis (Acute) Abdominal distension (gaseous) (Acute) Bilateral leg ulcer (Resolved) GI bleeding (Resolved) 1. Aspiration pneumonia-completed 5 days of IV Zosyn. Speech therapy consult. Leukocytosis resolved. Afebrile. Transitioned to augmentin 875mg po BID x2 days, stop date 03/31/18. 2. Acute e.coli UTI-received IV Zosyn. Transitioned to Augmentin as noted above. 3. Acute on chronic hypokalemia-replaced per protocol. History of recurrent hypokalemia. Home supplemental potassium increased to 40 mEq twice daily. Trend BMP. 4. Recurrent abdominal distention-Dr. Saleem following. Suspected [place]'s syndrome. Decompressive colonoscopy 03/29/18, chest tube was placed into the rectal area to alleviate gas. Patient's abdomen significantly improved. Abdomen flat, nondistended, soft. Continue to monitor. Per surgery, plan to remove rectal tube tomorrow. 5. Chronic atrial fibrillation on anticoagulation with Coumadin-continue amiodarone, carvedilol. Coumadin on hold given supratherapeutic INR. 6. CAD status post CABG-continue statin, beta-kathleen. 7. Chronic systolic CHF/ischemic cardiomyopathy- Echo with EF 40% as noted above. 8. Peripheral arterial disease status post lower extremity stents-continue statin. Coumadin on hold. 9. Hypertension-stable, continue home regimen. 10. Hyperlipidemia-continue statin. 11. Hypothyroidism-Continue Synthroid regimen. 12. Iron deficiency anemia-stable. 13. BPH-continue Flomax regimen. 14. Depression-continue sertraline regimen. 15. Debility- reports patient requiring significant care at home. Patient and family refused SNF during recent admission. PT/OT. 16. Moderate to severe protein calorie malnutrition-nutrition consult. 17. New-onset type 2 diabetes mellitus-Hemoglobin A1c 7.6%. Hold metformin. Accu-Cheks AC at bedtime with sliding scale insulin. 18. Chronic kidney disease stage III-stable, trend BMP. 19. Recent acute right midbrain infarct, history of prior CVA of the left occipital-continue aspirin, statin. Coumadin on hold. PT/OT/ST. 20. Chronic gluteal decubitus ulcers, present on admission-frequent position changes. Wound RN consult. DVT prophylaxis- SCDs. Discharge planning: Home with home health. declining SNF, hospice. This patient was seen by RICHELLE Lovelace under the supervision of Dr. Barcenas. <Tim Barcenas - Last Filed: 03/30/18 15:17> Subjective: Wants to eat and have a glass of beer - Physical Exam General: No apparent distress, - - Drowsy. oriented x1 (self), says he's at home, doesn't know date. HEENT: Atraumatic, Normocephalic Lungs: Clear to auscultation, Normal air movement, No rhonchi, No wheeze, Diminished Cardiovascular: - Abdomen: Bowel Sounds Present, Soft, Non Tender, Non-Distended, No Hepato- splenomegaly Extremities: No edema, No Calf Tenderness Skin: - Musculoskeletal: No Tenderness to Palpation of Joints or Extremities, No Muscle Wasting, Arthritic Changes Psych/Mental Status: Normal Affect, Appropriate Vital Signs Temp Pulse Resp BP Pulse Ox 36.6 C 58 L 18 134/89 H 93 03/30/18 09:39 03/30/18 12:33 03/30/18 09:39 03/30/18 09:39 03/30/18 09:39 Oxygen Flow Rate (L/min) 2 Oxygen Delivery Method Room Air Weight: 85.4 kg Body Mass Index (BMI) 24.1 Finger Stick Blood Glucose 105 Intake and Output for Last 24 Hours 03/28/18 03/29/18 03/30/18 23:59 23:59 23:59 Intake Total 1891 / 1891 2800 / 2800 1782 / 1782 Output Total 1225 / 1225 2100 / 2100 2250 / 2250 Balance 666 / 666 700 / 700 -468 / -468 Laboratory Tests Past 24 Hrs 03/30/18 03/30/18 06:23 06:23 PT 38.8 H INR 3.9 H* Sodium 145 Potassium 2.7 L* Chloride 113 H Carbon Dioxide 23.0 Anion Gap 9 BUN 8 Creatinine 0.83 Estim Creat Clear Calc 93.53 Est GFR (MDRD) Af Amer 116 Est GFR (MDRD) Non-Af 96 BUN/Creatinine Ratio 9.6 L Glucose 118 H Calcium 7.3 L POC Glucose 03/30/18 03/30/18 03/29/18 11:39 07:01 21:39 POC Glucose 121 H 113 H 113 H 03/29/18 16:31 POC Glucose 91 Assessment/Plan Patient seen and examined independently. Data reviewed. I agree with the above note by the nurse practitioner. 1. Colonic pseudo-obstruction improved after decompression, plan to remove on 03/31 avoid agents that may aggravate the condition (e.g., narcotics) bowel regimen 2. Aspiration pneumonia on agumentin 3. Dysphagia modified diet continue speech therapy. Code Visit Inpatient E&M: 20318 Subs Hosp L2
[2018-03-30] MEDS: Potassium Chloride 10mEq/100mL 10 MEQ/100 ML IV.SOLN. 100 MEQ IV BOLUS ×4 (16:06→19:22)
[2018-03-30 17:27] LABS: Bedside Glucose 127 mg/dL (70-110)
[2018-03-30] MEDS: Atorvastatin Calcium 40 MG Tablet PO (21:00)
[2018-03-30] MEDS: Tamsulosin HCl 0.4 MG Capsule PO (21:00)
[2018-03-30 21:50] LABS: Bedside Glucose 121 mg/dL (70-110)
[2018-03-30 22:28] LABS: Potassium 2.9 mmol/L (3.5-5.1)
[2018-03-31] VITALS (11 sets, daily range): BP systolic 123–149; BP diastolic 70–75; PULSE 55–76; RESP 16–20; TEMP 36.6–36.8; O2SAT 91–97
[2018-03-31] MEDS: Dextrose 5%/0.9% NaCl 1,000 ML 75 ML IV ×2 (05:57→19:34)
[2018-03-31] MEDS: Levothyroxine 88 MCG Tablet PO (05:57)
[2018-03-31 06:12] LABS: International Normalized Ratio 2.7; Prothrombin Time (Protime)PT. 28.5 SECONDS (11.7-14.9)
[2018-03-31 06:30] LABS: Anion Gap 8 (5-15); BUN 5 mg/dL (7-18); BUN/Creat Ratio 6.7 RATIO (10-20); Calcium,Total 7.3 mg/dL (8.5-10.1); Chloride 116 mmol/L (98-107); Creatinine, Serum 0.75 mg/dL (0.70-1.30); EST Glomerular Filtration Rate 108 mL/min (>60); Est Glom Filt Rate - Afr Amer 131 mL/min (>60); Estimated Creatinine Clearance 77.63 ml/min; Glucose 130 mg/dL (74-106); Potassium 3.3 mmol/L (3.5-5.1); Sodium Level 146 mmol/L (136-145)
[2018-03-31 06:41] LABS: Bedside Glucose 116 mg/dL (70-110)
[2018-03-31] MEDS: Ipratropium/Albuterol Sulfate 3 ML AMPUL.NEB INHALATION ×3 (06:59→19:15)
--- NOTE | 2018-03-31 08:24 | PCM.PN.SRG ---
Patient Problems: Active and Suspected Problems Aspiration pneumonitis (Acute) Abdominal distension (gaseous) (Acute) Subjective: Patient evaluated resting comfortably in bed. Patient yelling help and that he needs his oxygen tube in his nose upon evaluation. Oxygen saturation has been in the mid 90's overnight. He denies abdominal pain. He continues to have stool output. - Physical Exam General: Alert, Cooperative, Confused Abdomen: Soft, Hypoactive Bowel Sounds, Distended - slightly, - - Rectal intact and connected to gonzales bag with loose grainy output Vital Signs Temp Pulse Resp BP Pulse Ox 97.8 F 70 20 H 139/75 H 91 03/31/18 02:55 03/31/18 07:05 03/31/18 07:05 03/31/18 02:55 03/31/18 07:46 Oxygen Flow Rate (L/min) 2 Oxygen Delivery Method Room Air Weight: 188 lb 4.396 oz Body Mass Index (BMI) 24.1 Finger Stick Blood Glucose 105 Intake and Output for Last 24 Hours 03/29/18 03/30/18 03/31/18 23:59 23:59 23:59 Intake Total 2800 / 2800 3208 / 3208 1891 / 1891 Output Total 2100 / 2100 2500 / 2500 855 / 855 Balance 700 / 700 708 / 708 1036 / 1036 Laboratory Tests Past 24 Hrs 03/30/18 03/31/18 03/31/18 22:03 05:40 05:40 PT 28.5 H INR 2.7 Sodium 146 H Potassium 2.9 L 3.3 L Chloride 116 H Carbon Dioxide 22.0 Anion Gap 8 BUN 5 L Creatinine 0.75 Estim Creat Clear Calc 77.63 Est GFR (MDRD) Af Amer 131 Est GFR (MDRD) Non-Af 108 BUN/Creatinine Ratio 6.7 L Glucose 130 H Calcium 7.3 L POC Glucose 03/31/18 03/30/18 03/30/18 06:34 20:52 17:16 POC Glucose 116 H 121 H 127 H 03/30/18 11:39 POC Glucose 121 H Medical Necessity - Tobacco Use Smoking Status: Unknown if ever smoked Tobacco Use: Cigarettes Assessment/Plan All Active Problems Aspiration pneumonitis (Acute) Abdominal distension (gaseous) (Acute) Bilateral leg ulcer (Resolved) GI bleeding (Resolved) I am following this patient in conjunction with Dr. Stiven Impression: Jackeline's syndrome. Abdomen less distended this morning and softer. Discontinue rectal tube tomorrow Continue bowel regimen Family needs to consider Hospice. Maybe home Hospice? We will continue to closely monitor this patient. Code Visit Inpatient E&M: 07423 Subs Hosp L2
[2018-03-31] MEDS: Amox/Clavulanate 875 MG Tablet PO ×2 (08:35→18:13)
[2018-03-31] MEDS: Sertraline 50 MG Tablet PO (08:36)
[2018-03-31] MEDS: Carvedilol 12.5 MG Tablet PO ×2 (08:36→21:20)
[2018-03-31] MEDS: Amiodarone 200 MG Tablet PO (08:36)
[2018-03-31] MEDS: Polyethylene Glycol 3350 17 GM PACKET PO (08:36)
[2018-03-31] MEDS: Menthol/Lanolin/Calamine/Znox 113 GM Tube 1 APPLIC TOPICAL ×2 (08:37→21:19)
[2018-03-31] MEDS: Docusate Sodium 100 MG/10 ML UDC PO ×2 (08:37→21:20)
--- NOTE | 2018-03-31 11:25 | CASEMGMT ---
Social Work SW spoke with physician who just left pt room and spoke with . Per Dr. Barcenas pt is agreeable to meet with Palliative care to obtain information on services and would prefer to meet tomorrow when her son can be present. JARRED placed referral phone call to Maday at [facility] and clinical information faxed. Maday to contact pt to set up appointment for tomorrow. KRYSTAL Posey
[2018-03-31 12:11] LABS: Bedside Glucose 120 mg/dL (70-110)
--- NOTE | 2018-03-31 12:14 | PN_ITS ---
<Maribell Evans - Last Filed: 03/31/18 12:16> Patient Problems: Active and Suspected Problems Aspiration pneumonitis (Acute) Abdominal distension (gaseous) (Acute) Subjective: Patient seen and examined. Denies current complaints. No acute events overnight. - Physical Exam General: Alert, Cooperative, No apparent distress HEENT: Atraumatic, PERRLA, EOMI, Normocephalic Neck: Supple, No JVD, Negative Carotid Bruits Lungs: Clear to auscultation, Diminished Cardiovascular: - - Atrial fibrillation, rate controlled Abdomen: Bowel Sounds Present, Soft, Non Tender, Non-Distended, - - Rectal tube in place Extremities: No clubbing, No cyanosis, No edema, Capillary Refill Less than 3 Seconds Skin: - - Chronic decubitus ulcers buttocks Musculoskeletal: No Tenderness to Palpation of Joints or Extremities Neurological: Cranial nerves II-XII grossly intact Psych/Mental Status: Flat Affect Vital Signs Temp Pulse Resp BP Pulse Ox 97.9 F 76 18 149/74 H 96 03/31/18 08:00 03/31/18 10:20 03/31/18 10:20 03/31/18 08:00 03/31/18 08:00 Oxygen Flow Rate (L/min) 2 Oxygen Delivery Method Room Air Weight: 188 lb 4.396 oz Body Mass Index (BMI) 24.1 Finger Stick Blood Glucose 105 Intake and Output for Last 24 Hours 03/29/18 03/30/18 03/31/18 23:59 23:59 23:59 Intake Total 2800 / 2800 3208 / 3208 1891 / 1891 Output Total 2100 / 2100 2500 / 2500 855 / 855 Balance 700 / 700 708 / 708 1036 / 1036 Laboratory Tests Past 24 Hrs 03/30/18 03/31/18 03/31/18 22:03 05:40 05:40 PT 28.5 H INR 2.7 Sodium 146 H Potassium 2.9 L 3.3 L Chloride 116 H Carbon Dioxide 22.0 Anion Gap 8 BUN 5 L Creatinine 0.75 Estim Creat Clear Calc 77.63 Est GFR (MDRD) Af Amer 131 Est GFR (MDRD) Non-Af 108 BUN/Creatinine Ratio 6.7 L Glucose 130 H Calcium 7.3 L POC Glucose 03/31/18 03/30/18 03/30/18 06:34 20:52 17:16 POC Glucose 116 H 121 H 127 H Medical Necessity - Tobacco Use Smoking Status: Unknown if ever smoked Tobacco Use: Cigarettes Assessment/Plan All Active Problems Aspiration pneumonitis (Acute) Abdominal distension (gaseous) (Acute) Bilateral leg ulcer (Resolved) GI bleeding (Resolved) 1. Aspiration pneumonia-completed 5 days of IV Zosyn. Speech therapy consult. Leukocytosis resolved. Afebrile. Transitioned to augmentin 875mg po BID x2 d ays, stop date 03/31/18. 2. Acute e.coli UTI-received IV Zosyn. Transitioned to Augmentin as noted above. 3. Acute on chronic hypokalemia-replaced per protocol. History of recurrent hypokalemia. Home supplemental potassium increased to 40 mEq twice daily. Trend BMP. 4. 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 Saleem following. Decompressive colonoscopy 03/29/18, chest tube was placed into the rectal area to alleviate gas. Patient's abdomen significantly improved. Abdomen flat, nondistended, soft. Continue to monitor. Per surgery, plan to remove rectal tube tomorrow. Continue bowel regimen. 5. Chronic atrial fibrillation on anticoagulation with Coumadin-continue amiodarone, carvedilol. Coumadin on hold due to supratherapeutic INR. Trend INR. Anticipate resuming Coumadin regimen tomorrow. 6. CAD status post CABG-continue statin, beta-kathleen. 7. Chronic systolic CHF/ischemic cardiomyopathy- Echo with EF 40% as noted above. 8. Peripheral arterial disease status post lower extremity stents-continue statin. 9. Hypertension-stable, continue home regimen. 10. Hyperlipidemia-continue statin. 11. Hypothyroidism-Continue Synthroid regimen. 12. Iron deficiency anemia-stable. 13. BPH-continue Flomax regimen. 14. Depression-continue sertraline regimen. 15. Debility- reports patient requiring significant care at home. Patient and family refused SNF during recent admission. PT/OT. 16. Moderate protein calorie malnutrition-nutrition consulted. 17. New-onset type 2 diabetes mellitus-Hemoglobin A1c 7.6%. Hold metformin. Accu-Cheks AC at bedtime with sliding scale insulin. 18. Chronic kidney disease stage III-stable, trend BMP. 19. Recent acute right midbrain infarct, history of prior CVA of the left occipital-continue aspirin, statin. PT/OT/ST. 20. Chronic gluteal decubitus ulcers, present on admission-frequent position changes. Wound RN consult. DVT prophylaxis- SCDs, coumadin. Discharge planning: Home with home health. Patient and agreeable to palliative/hospice consult, pending. Possibly home with hospice/home health if patient and family agreeable. This patient was seen by RICHELLE Lovelace under the supervision of Dr. Barcenas. <Tim Barcenas - Last Filed: 03/31/18 13:26> Subjective: Denies any new complaints. - Physical Exam General: No apparent distress, Confused HEENT: Atraumatic, Normocephalic Neck: No Nodes, Thyroid Normal Size and Texture Lungs: Clear to auscultation, No rhonchi, No wheeze, Diminished Cardiovascular: Regular rate, Regular Rhythm, Normal S1, Normal S2 Abdomen: Bowel Sounds Present, Soft, Non Tender, Distended, - Extremities: No edema, No Calf Tenderness Psych/Mental Status: Anxious Vital Signs Temp Pulse Resp BP Pulse Ox 36.6 C 76 18 149/74 H 96 03/31/18 08:00 03/31/18 10:20 03/31/18 10:20 03/31/18 08:00 03/31/18 08:00 Oxygen Flow Rate (L/min) 2 Oxygen Delivery Method Room Air Weight: 85.4 kg Body Mass Index (BMI) 24.1 Finger Stick Blood Glucose 105 Intake and Output for Last 24 Hours 03/29/18 03/30/18 03/31/18 23:59 23:59 23:59 Intake Total 2800 / 2800 3208 / 3208 1891 / 1891 Output Total 2100 / 2100 2500 / 2500 855 / 855 Balance 700 / 700 708 / 708 1036 / 1036 Laboratory Tests Past 24 Hrs 03/30/18 03/31/18 03/31/18 22:03 05:40 05:40 PT 28.5 H INR 2.7 Sodium 146 H Potassium 2.9 L 3.3 L Chloride 116 H Carbon Dioxide 22.0 Anion Gap 8 BUN 5 L Creatinine 0.75 Estim Creat Clear Calc 77.63 Est GFR (MDRD) Af Amer 131 Est GFR (MDRD) Non-Af 108 BUN/Creatinine Ratio 6.7 L Glucose 130 H Calcium 7.3 L POC Glucose 03/31/18 03/31/18 03/30/18 11:33 06:34 20:52 POC Glucose 120 H 116 H 121 H 03/30/18 17:16 POC Glucose 127 H Assessment/Plan Patient seen and examined independently. Data reviewed. I agree with the above note by the nurse practitioner. 1. Colonic pseudo-obstruction improved after decompression, plan to remove on 04/01 avoid agents that may aggravate the condition (e.g., narcotics) bowel regimen Discussed with patient's , if this recurs, I advised against surgery (e.g., cecostomy tube, resection). I do not feel that it would provide him any quality of life if he were to have it. 2. Aspiration pneumonia on agumentin through today. 3. Dysphagia modified diet continue speech therapy. Advanced care planning: spent an additional 30 minutes [id number] time discussing with the patient's about palliative care, hospice. I recommended palliative care. She agreed, and would like for them to see her tomorrow, when her son can be available. I encouraged quality of life for the patient and discouraged proceedures that may extend his life, but not necessarily provide quality of life (see above). Code Visit Inpatient E&M: 44449 Subs Hosp L2 Procedures: 99125 Advncd Care Plan 30 Min
--- NOTE | 2018-03-31 13:10 | NURSING ---
REPORT CALLED TO SULEMAN Arreaga RN ON MS2. PT TRANSFERRING TO MS210
[2018-03-31 16:31] LABS: Bedside Glucose 117 mg/dL (70-110)
[2018-03-31] MEDS: Atorvastatin Calcium 40 MG Tablet PO (21:22)
[2018-03-31] MEDS: Tamsulosin HCl 0.4 MG Capsule PO (21:22)
--- NOTE | 2018-03-31 21:30 | NURSING ---
When turning pt SaysNeed to pee and have BM Reminded he has a [place] and placed n the bedpan..no BM. Meds crushed and given in apple sauce no difficulty swallowing did give H2O nectar thicken pt asked for water to drink. After turning pt c/o not being able to breath no distress noted and checked his POx 95% Given reassurance he was breathing fine [place]ay.
[2018-03-31 21:55] LABS: Bedside Glucose 128 mg/dL (70-110)
[2018-04-01] VITALS (8 sets, daily range): BP systolic 108–163; BP diastolic 76–88; PULSE 58–73; RESP 18–20; TEMP 36.4–36.8; O2SAT 94–100
[2018-04-01] MEDS: Albuterol 2.5 MG/3 ML VIAL.NEB. INHALATION (04:14)
[2018-04-01] MEDS: 0.9% NaCl Peripheral Flush Adult/Peds IV (04:30)
[2018-04-01 06:02] LABS: International Normalized Ratio 1.8; Prothrombin Time (Protime)PT. 20.8 SECONDS (11.7-14.9)
[2018-04-01 06:11] LABS: Anion Gap 9 (5-15); BUN 4 mg/dL (7-18); BUN/Creat Ratio 5.2 RATIO (10-20); Calcium,Total 7.6 mg/dL (8.5-10.1); Chloride 116 mmol/L (98-107); Creatinine, Serum 0.77 mg/dL (0.70-1.30); EST Glomerular Filtration Rate 106 mL/min (>60); Est Glom Filt Rate - Afr Amer 128 mL/min (>60); Estimated Creatinine Clearance 77.63 ml/min; Glucose 111 mg/dL (74-106); Potassium 3.2 mmol/L (3.5-5.1); Sodium Level 148 mmol/L (136-145)
[2018-04-01 06:24] LABS: Absolute Lymphocyte Count 1.03 X10^3/ul (0.83-4.51); Absolute Neutrophil Count 6.5 X10^3/uL (2.0-7.7); Basophil# 0.04 X10^3/uL; Basophil% 0.4 % (0-1); Eosinophil# 0.17 X10^3/uL; Eosinophils% 1.8 % (0-5); Hematocrit 34.1 % (40-54); Hemoglobin 10.3 g/dl (13.0-16.5); Lymphocyte # 1.03 X10^3/ul (4.0); Lymphocyte % 11.1 % (19-41); Mean Corp Hgb Conc 30.2 g/gl (32-36); Mean Corpuscular Hgb 27.7 pg (27.0-32.0); Mean Corpuscular Volume 91.7 fL (80-94); Mean Platelet Vol. 8.8 fl (6.2-12.0); Monocyte% 16.2 % (0-10); Neutrophil # 6.48 X10^3/uL (2.7-7.7); Neutrophil % 69.9 % (47-70); Platelet Count 204 K/mm3 (150-450); RBC Distribution Width CV 16.9 % (11.6-14.6); Red Blood Count 3.72 M/mm3 (4.6-6.2); White Blood Count 9.3 K/mm3 (4.4-11.0)
[2018-04-01 06:36] LABS: POSITIVE COUNT NO; POSITIVE DIFFERENTIAL NO; POSITIVE MORPHOLOGY NO
[2018-04-01] MEDS: Levothyroxine 88 MCG Tablet PO (06:41)
[2018-04-01 06:50] LABS: Bedside Glucose 95 mg/dL (70-110)
[2018-04-01] MEDS: Ipratropium/Albuterol Sulfate 3 ML AMPUL.NEB INHALATION ×2 (07:30→11:06)
--- NOTE | 2018-04-01 07:30 | PCM.PN.SRG ---
Patient Problems: Active and Suspected Problems Pseudoobstruction of colon (Acute) Aspiration pneumonitis (Acute) Abdominal distension (gaseous) (Acute) Subjective: Patient evaluated resting in bed. He is more lethargic this morning. He does not grimace to abdominal palpation. Per nursing staff overnight, patient did not have a bowel movement and he did at one point complain of abdominal discomfort. He had attempted the bedside commode without success. Rectal tube removed yesterday. - Physical Exam General: Lethargic Abdomen: Non Tender - no grimacing with palpation, Distended - moderately. More than yesterday Vital Signs Temp Pulse Resp BP Pulse Ox 97.8 F 66 20 H 150/88 H 100 04/01/18 03:28 04/01/18 04:16 04/01/18 04:33 04/01/18 03:28 04/01/18 04:33 Oxygen Flow Rate (L/min) 2 Oxygen Delivery Method Nasal Cannula Weight: 188 lb 4.396 oz Body Mass Index (BMI) 24.1 Finger Stick Blood Glucose 105 Intake and Output for Last 24 Hours 03/30/18 03/31/18 04/01/18 23:59 23:59 23:59 Intake Total 3208 / 3208 3567 / 3567 929 / 929 Output Total 2500 / 2500 2004 / 2004 650 / 650 Balance 708 / 708 1562 / 1562 279 / 279 Laboratory Tests Past 24 Hrs 04/01/18 04/01/18 04/01/18 05:35 05:35 05:35 WBC 9.3 RBC 3.72 L Hgb 10.3 L Hct 34.1 L MCV 91.7 MCH 27.7 MCHC 30.2 L RDW 16.9 H RDW Differential 55.0 H Plt Count 204 MPV 8.8 Immature Gran % (Auto) 0.600 Neut % (Auto) 69.9 Lymph % (Auto) 11.1 L [place] % (Auto) 16.2 H Eos % (Auto) 1.8 Baso % (Auto) 0.4 Absolute Neuts (auto) 6.5 Absolute Lymphs (auto) 1.03 Total Counted Not Reportable PT 20.8 H INR 1.8 Sodium 148 H Potassium 3.2 L Chloride 116 H Carbon Dioxide 23.0 Anion Gap 9 BUN 4 L Creatinine 0.77 Estim Creat Clear Calc 77.63 Est GFR (MDRD) Af Amer 128 Est GFR (MDRD) Non-Af 106 BUN/Creatinine Ratio 5.2 L Glucose 111 H Calcium 7.6 L POC Glucose 04/01/18 03/31/18 03/31/18 06:45 21:38 16:22 POC Glucose 95 128 H 117 H 03/31/18 11:33 POC Glucose 120 H Medical Necessity - Tobacco Use Smoking Status: Unknown if ever smoked Tobacco Use: Cigarettes Assessment/Plan All Active Problems Pseudoobstruction of colon (Acute) Aspiration pneumonitis (Acute) Abdominal distension (gaseous) (Acute) Bilateral leg ulcer (Resolved) GI bleeding (Resolved) I am following this patient in conjunction with Dr. Saleem Impression: Cameron's syndrome. Abdomen less distended this morning and softer. Continue bowel regimen Discussed patient with Dr. Saleem No further rectal tube being placed Palliative care has been consulted per Medicine We will continue to closely monitor this patient. Code Visit Inpatient E&M: 21384 [facility] Hosp L1
--- NOTE | 2018-04-01 08:35 | PCM.PN.HOSP ---
Patient Problems: Active and Suspected Problems Aspiration pneumonitis (Acute) Abdominal distension (gaseous) (Acute) Pseudoobstruction of colon (Acute) Subjective: Rectal tube removed last night. Patient confused and unable to provide any information. Vitals/I&O's: Vital Signs Temp Pulse Resp BP Pulse Ox 36.6 C 68 18 150/88 H 99 04/01/18 03:28 04/01/18 07:30 04/01/18 07:30 04/01/18 03:28 04/01/18 07:30 Oxygen Flow Rate (L/min) 2 Oxygen Delivery Method Nasal Cannula Weight: 85.4 kg Body Mass Index (BMI) 24.1 Finger Stick Blood Glucose 105 Intake and Output for Last 24 Hours 03/30/18 03/31/18 04/01/18 23:59 23:59 23:59 Intake Total 3208 / 3208 3567 / 3567 929 / 929 Output Total 2500 / 2500 2004 / 2004 650 / 650 Balance 708 / 708 1562 / 1562 279 / 279 General: Confused, Non-Cooperative HEENT: Atraumatic, Normocephalic Oral: Moist Mucosa, No Gingival or Mucosal Lesions/ Ulcerations Neck: No Nodes, Thyroid Normal Size and Texture Lungs: Clear to auscultation, Normal air movement, No rhonchi, No wheeze Cardiovascular: Regular rate, Regular Rhythm, Normal S1, Normal S2 Abdomen: Distended, Tender, - - high-pitched bowel sounds. Extremities: No edema, No Calf Tenderness Psych/Mental Status: Agitated Laboratory Results 03/31/18 11:33: POC Glucose 120 H 03/31/18 16:22: POC Glucose 117 H 03/31/18 21:38: POC Glucose 128 H 04/01/18 05:35: PT 20.8 H, INR 1.8 04/01/18 05:35: Sodium 148 H, Potassium 3.2 L, Chloride 116 H, Carbon Dioxide 23.0, Anion Gap 9, BUN 4 L, Creatinine 0.77, Estim Creat Clear Calc 77.63, Est GFR (MDRD) Af Amer 128, Est GFR (MDRD) Non-Af 106, BUN/Creatinine Ratio 5.2 L, Glucose 111 H, Calcium 7.6 L 04/01/18 05:35: WBC 9.3, RBC 3.72 L, Hgb 10.3 L, Hct 34.1 L, MCV 91.7, MCH 27.7, MCHC 30.2 L, RDW 16.9 H, RDW Differential 55.0 H, Plt Count 204, MPV 8.8, Immature Gran % (Auto) 0.600, Neut % (Auto) 69.9, Lymph % (Auto) 11.1 L, [place] % (Auto) 16.2 H, Eos % (Auto) 1.8, Baso % (Auto) 0.4, Absolute Neuts (auto) 6.5, Absolute Lymphs (auto) 1.03, Total Counted Not Reportable 04/01/18 06:45: POC Glucose 95 Current Medications Acetaminophen (Tylenol) 650 mg PO Q6H PRN PRN PRN Reason: PAIN Albuterol Sulfate (Ventolin Aerosols) 2.5 mg INHALATION Q2H PRN PRN PRN Reason: sob/wheezing Last Admin: 04/01/18 04:14 Dose: 2.5 mg Albuterol/Ipratropium (Duoneb) 3 ml INHALATION Q4HWA.RT [facility] Last Admin: 04/01/18 07:30 Dose: 3 ml Amiodarone HCl (Cordarone) 200 mg PO DAILY [facility] Last Admin: 03/31/18 08:36 Dose: 200 mg Amoxicillin/Clavulanate [facility] ([facility] Last Admin: 03/31/18 18:13 Dose: 875 mg Atorvastatin Calcium (Lipitor) 40 mg PO QHS [facility] Last Admin: 03/31/18 21:22 Dose: 40 mg Bisacodyl (Dulcolax) 10 mg RECTAL DAILY [facility] Last Admin: 03/31/18 08:37 Dose: Not Given Calamine/Phenol (Calmoseptine Ointment) 1 applic TOPICAL BID [facility]; Protocol Last Admin: 03/31/18 21:19 Dose: 1 applicatio Carvedilol (Coreg) 12.5 mg PO BID [facility] Last Admin: 03/31/18 21:20 Dose: 12.5 mg Dextrose (D50w Syringe) 0 gm IV X1 PRN; Protocol PRN Reason: Hypoglycemia Last Admin: 03/29/18 11:27 Dose: 12.5 gm Docusate Sodium (Colace Syrup) 100 mg PO BID [facility] Last Admin: 03/31/18 21:20 Dose: 100 mg Glucagon () 1 mg IM .X1 PRN PRN Reason: Hypoglycemia Insulin Human Lispro (Humalog Kwikpen (Bkc)) 0 unit SC ACHS [facility]; Protocol Last Admin: 04/01/18 06:46 Dose: Not Given Levothyroxine Sodium (Synthroid) 88 mcg PO DAILY@0600 [facility] Last Admin: 04/01/18 06:41 Dose: 88 mcg Magnesium Hydroxide (Milk Of Magnesia) 30 ml PO DAILY PRN PRN Reason: Constipation Last Admin: 03/20/18 21:08 Dose: 30 ml Polyethylene Glycol (Miralax) 17 gm PO DAILY [facility] Last Admin: 03/31/18 08:36 Dose: 17 gm Potassium Chloride (K-Dur) 40 meq PO BIDCM [facility] Last Admin: 03/31/18 18:13 Dose: 40 meq Sertraline HCl (Zoloft) 50 mg PO DAILY [facility] Last Admin: 03/31/18 08:36 Dose: 50 mg Sodium Chloride () 5 - 15 ml IV UD PRN PRN Reason: SALINE FLUSH Last Admin: 04/01/18 04:30 Dose: 10 ml Tamsulosin HCl (Flomax) 0.4 mg PO QHS [facility] Last Admin: 03/31/18 21:22 Dose: 0.4 mg Warfarin Sodium (Coumadin (Pbkc)) 2.5 mg PO DAILY@1700 [facility] Last Admin: 03/31/18 18:12 Dose: 2.5 mg Medical Necessity - Tobacco Use Smoking Status: Unknown if ever smoked Tobacco Use: Cigarettes Assessment/Plan All Active Problems Aspiration pneumonitis (Acute) Abdominal distension (gaseous) (Acute) Pseudoobstruction of colon (Acute) Bilateral leg ulcer (Resolved) GI bleeding (Resolved) 1. Colonic pseudo-obstruction improved after decompression, however, seems to be worsened after rectal tube removed. avoid agents that may aggravate the condition (e.g., narcotics) Previously, I discussed with patient's , if this recurs, I advised against surgery (e.g., cecostomy tube, resection). I do not feel that it would provide him any quality of life if he were to have it. Recheck abdominal xray. 2. Aspiration pneumonia dc augmentin, completed course. 3. Dysphagia modified diet continue speech therapy. 4. Prognosis Guarded Palliative care meeting today with family to discuss goals of care. 5. Chronic afib Continue warfarin, amio, carvedilol 6. DVT proph: as INR is subtherapeutic, will add lovenox. Code Visit Inpatient E&M: 32807 Subs Hosp L2
--- NOTE | 2018-04-01 08:42 | PN_ITS ---
Patient Problems: Active and Suspected Problems Aspiration pneumonitis (Acute) Abdominal distension (gaseous) (Acute) Pseudoobstruction of colon (Acute) Subjective: Rectal tube removed last night. Patient confused and unable to provide any information. Vitals/I&O's: Vital Signs Temp Pulse Resp BP Pulse Ox 36.6 C 68 18 150/88 H 99 04/01/18 03:28 04/01/18 07:30 04/01/18 07:30 04/01/18 03:28 04/01/18 07:30 Oxygen Flow Rate (L/min) 2 Oxygen Delivery Method Nasal Cannula Weight: 85.4 kg Body Mass Index (BMI) 24.1 Finger Stick Blood Glucose 105 Intake and Output for Last 24 Hours 03/30/18 03/31/18 04/01/18 23:59 23:59 23:59 Intake Total 3208 / 3208 3567 / 3567 929 / 929 Output Total 2500 / 2500 2004 / 2004 650 / 650 Balance 708 / 708 1562 / 1562 279 / 279 General: Confused, Non-Cooperative HEENT: Atraumatic, Normocephalic Oral: Moist Mucosa, No Gingival or Mucosal Lesions/ Ulcerations Neck: No Nodes, Thyroid Normal Size and Texture Lungs: Clear to auscultation, Normal air movement, No rhonchi, No wheeze Cardiovascular: Regular rate, Regular Rhythm, Normal S1, Normal S2 Abdomen: Distended, Tender, - - high-pitched bowel sounds. Extremities: No edema, No Calf Tenderness Psych/Mental Status: Agitated Laboratory Results 03/31/18 11:33: POC Glucose 120 H 03/31/18 16:22: POC Glucose 117 H 03/31/18 21:38: POC Glucose 128 H 04/01/18 05:35: PT 20.8 H, INR 1.8 04/01/18 05:35: Sodium 148 H, Potassium 3.2 L, Chloride 116 H, Carbon Dioxide 23.0, Anion Gap 9, BUN 4 L, Creatinine 0.77, Estim Creat Clear Calc 77.63, Est GFR (MDRD) Af Amer 128, Est GFR (MDRD) Non-Af 106, BUN/Creatinine Ratio 5.2 L, Glucose 111 H, Calcium 7.6 L 04/01/18 05:35: WBC 9.3, RBC 3.72 L, Hgb 10.3 L, Hct 34.1 L, MCV 91.7, MCH 27.7, MCHC 30.2 L, RDW 16.9 H, RDW Differential 55.0 H, Plt Count 204, MPV 8.8, Immature Gran % (Auto) 0.600, Neut % (Auto) 69.9, Lymph % (Auto) 11.1 L, [place] % (Auto) 16.2 H, Eos % (Auto) 1.8, Baso % (Auto) 0.4, Absolute Neuts (auto) 6.5, Absolute Lymphs (auto) 1.03, Total Counted Not Reportable 04/01/18 06:45: POC Glucose 95 Current Medications Acetaminophen (Tylenol) 650 mg PO Q6H PRN PRN PRN Reason: PAIN Albuterol Sulfate (Ventolin Aerosols) 2.5 mg INHALATION Q2H PRN PRN PRN Reason: sob/wheezing Last Admin: 04/01/18 04:14 Dose: 2.5 mg Albuterol/Ipratropium (Duoneb) 3 ml INHALATION Q4HWA.RT [facility] Last Admin: 04/01/18 07:30 Dose: 3 ml Amiodarone HCl (Cordarone) 200 mg PO DAILY [facility] Last Admin: 03/31/18 08:36 Dose: 200 mg Amoxicillin/Clavulanate Potassium ([facility]in [facility]) [facility] Last Admin: 03/31/18 18:13 Dose: 875 mg Atorvastatin Calcium (Lipitor) 40 mg PO QHS [facility] Last Admin: 03/31/18 21:22 Dose: 40 mg Bisacodyl (Dulcolax) 10 mg RECTAL DAILY [facility] Last Admin: 03/31/18 08:37 Dose: Not Given Calamine/Phenol (Calmoseptine Ointment) 1 applic TOPICAL BID [facility]; Protocol Last Admin: 03/31/18 21:19 Dose: 1 applicatio Carvedilol (Coreg) 12.5 mg PO BID [facility] Last Admin: 03/31/18 21:20 Dose: 12.5 mg Dextrose (D50w Syringe) 0 gm IV X1 PRN; Protocol PRN Reason: Hypoglycemia Last Admin: 03/29/18 11:27 Dose: 12.5 gm Docusate Sodium (Colace Syrup) 100 mg PO BID [facility] Last Admin: 03/31/18 21:20 Dose: 100 mg Glucagon () 1 mg IM .X1 PRN PRN Reason: Hypoglycemia Insulin Human Lispro (Humalog Kwikpen (Bkc)) 0 unit SC ACHS [facility]; Protocol Last Admin: 04/01/18 06:46 Dose: Not Given Levothyroxine Sodium (Synthroid) 88 mcg PO DAILY@0600 [facility] Last Admin: 04/01/18 06:41 Dose: 88 mcg Magnesium Hydroxide (Milk Of Magnesia) 30 ml PO DAILY PRN PRN Reason: Constipation Last Admin: 03/20/18 21:08 Dose: 30 ml Polyethylene Glycol (Miralax) 17 gm PO DAILY [facility] Last Admin: 03/31/18 08:36 Dose: 17 gm Potassium Chloride (K-Dur) 40 meq PO BIDCM [facility] Last Admin: 03/31/18 18:13 Dose: 40 meq Sertraline HCl (Zoloft) 50 mg PO DAILY [facility] Last Admin: 03/31/18 08:36 Dose: 50 mg Sodium Chloride () 5 - 15 ml IV UD PRN PRN Reason: SALINE FLUSH Last Admin: 04/01/18 04:30 Dose: 10 ml Tamsulosin HCl (Flomax) 0.4 mg PO QHS [facility] Last Admin: 03/31/18 21:22 Dose: 0.4 mg Warfarin Sodium (Coumadin (Pbkc)) 2.5 mg PO DAILY@1700 [facility] Last Admin: 03/31/18 18:12 Dose: 2.5 mg Medical Necessity - Tobacco Use Smoking Status: Unknown if ever smoked Tobacco Use: Cigarettes Assessment/Plan All Active Problems Aspiration pneumonitis (Acute) Abdominal distension (gaseous) (Acute) Pseudoobstruction of colon (Acute) Bilateral leg ulcer (Resolved) GI bleeding (Resolved) 1. Colonic pseudo-obstruction improved after decompression, however, seems to be worsened after rectal tube removed. avoid agents that may aggravate the condition (e.g., narcotics) Previously, I discussed with patient's , if this recurs, I advised against surgery (e.g., cecostomy tube, resection). I do not feel that it would provide him any quality of life if he were to have it. Recheck abdominal xray. 2. Aspiration pneumonia dc augmentin, completed course. 3. Dysphagia modified diet continue speech therapy. 4. Prognosis Guarded Palliative care meeting today with family to discuss goals of care. 5. Chronic afib Continue warfarin, amio, carvedilol 6. DVT proph: as INR is subtherapeutic, will add lovenox. Code Visit Inpatient E&M: 29768 Subs Hosp L2
[2018-04-01] MEDS: Amiodarone 200 MG Tablet PO (09:11)
[2018-04-01] MEDS: Carvedilol 12.5 MG Tablet PO ×2 (09:11→21:02)
[2018-04-01] MEDS: Menthol/Lanolin/Calamine/Znox 113 GM Tube 1 APPLIC TOPICAL ×2 (09:12→21:02)
[2018-04-01] MEDS: Amox/Clavulanate 875 MG Tablet PO ×2 (09:12→16:48)
[2018-04-01] MEDS: Docusate Sodium 100 MG/10 ML UDC PO ×2 (09:12→21:02)
[2018-04-01] MEDS: Sertraline 50 MG Tablet PO (09:13)
[2018-04-01] MEDS: Polyethylene Glycol 3350 17 GM PACKET PO (09:13)
--- NOTE | 2018-04-01 11:25 | CPS ---
Pt kept removing mask and stated he did not want the treatment.
[2018-04-01 11:40] LABS: Bedside Glucose 117 mg/dL (70-110)
--- NOTE | 2018-04-01 12:10 | RAD_ITS ---
STUDY: X-RAY - ABDOMEN/PELVIS REASON FOR EXAM: Male, 72 years old. Abdominal distention TECHNIQUE: 4 AP views COMPARISON: 03/26/2018 FINDINGS: There is marked gaseous distention of the colon to the level of the sigmoid, essentially unchanged however from the previous study. The cecum measures up to 21.7 cm in diameter. There is no demonstrated free abdominal air. The visualized liver, spleen and kidneys are grossly normal in size and morphology. Normal soft tissue structures. Normal visualized osseous structures. RAD/Abdomen Single View IMPRESSION: Stable gaseous distention of the colon to the level of the sigmoid, unchanged from the prior study. The cecum measures up to 21.7 cm in diameter. Electronically Signed: Yassine Hobson MD at 17:12 EST , Service support ,
--- NOTE | 2018-04-01 12:46 | OP.ENDO_ITS ---
Patient Name: Kiko Valles Procedure Date: 03/26/2018 9:14 AM Date of : 1945 Age: 72 Procedure: Colonoscopy Indications: Decompression of acute non-toxic megacolon, Therapeutic procedure Providers: Delmar Saleem MD Medicines: See the Anesthesia note for documentation of the administered medications Patient Profile: This is a 72 year old male. Refer to note in patient chart for documentation of history and physical. Last Colonoscopy: March 2018. Complications: No immediate complications. Procedure: Pre-Anesthesia Assessment: - Prior to the procedure, a History and Physical was performed, and patient medications and allergies were reviewed. The patient's tolerance of previous anesthesia was also reviewed. The risks and benefits of the procedure and the sedation options and risks were discussed with the patient. All questions were answered, and informed consent was obtained. Prior Anticoagulants: The patient has taken no previous anticoagulant or antiplatelet agents. ASA Grade Assessment: III - A patient with severe systemic disease. After reviewing the risks and benefits, the patient was deemed in satisfactory condition to undergo the procedure. After I obtained informed consent, the scope was passed under direct vision. Throughout the procedure, the patient's blood pressure, pulse, and oxygen saturations were monitored continuously. The colonoscope was introduced through the anus and advanced to the descending colon for evaluation. This was the intended extent. The colonoscopy was performed without difficulty. The patient tolerated the procedure well. No bowel preparation was given prior to the procedure. Scope In: 9:37:08 AM Scope Out: 9:39:31 AM Total Procedure Duration Time 0 hours 2 minutes 23 seconds Findings: The lumen of the colon (entire examined portion) was grossly dilated. Decompression of the volvulus was attempted and was successful, with complete decompression achieved. The exam was otherwise without abnormality. Impression: - Dilated in the entire examined colon. - The examination was otherwise normal. - No specimens collected. Recommendation: - Return patient to [facility] for ongoing care. - Resume previous diet. - Continue present medications. - Repeat colonoscopy PRN for retreatment. - Return to my office in 1 week. Procedure Code(s): --- Professional --- 38186, 52, Colonoscopy, flexible; with decompression (for pathologic distention) (eg, volvulus, megacolon), including placement of decompression tube, when performed Diagnosis Code(s): --- Professional --- K59.39, Other megacolon CPT copyright 2017 [employer]. All rights reserved. The codes documented in this report are preliminary and upon plugman review may be revised to meet current compliance requirements. MD Delmar Khalil MD 03/26/2018 9:45:20 AM This report has been signed electronically. Number of Addenda: 0 Note Initiated On: 03/26/2018 9:14 AM
--- NOTE | 2018-04-01 13:13 | CASEMGMT ---
SW called [facility], Simi will be here at 3pm to meet w/pt and family. KARLA Magallon, CLAIM CLERK
[2018-04-01 17:31] LABS: Bedside Glucose 93 mg/dL (70-110)
[2018-04-01] MEDS: Tamsulosin HCl 0.4 MG Capsule PO (21:02)
[2018-04-01] MEDS: Atorvastatin Calcium 40 MG Tablet PO (21:02)
[2018-04-01 22:26] LABS: Bedside Glucose 99 mg/dL (70-110)
[2018-04-02] VITALS (9 sets, daily range): BP systolic 134–148; BP diastolic 67–93; PULSE 60–83; RESP 16–24; TEMP 36.4–36.9; O2SAT 91–98
[2018-04-02] MEDS: Ipratropium/Albuterol Sulfate 3 ML AMPUL.NEB INHALATION ×5 (01:55→18:38)
[2018-04-02] MEDS: Enoxaparin 40 MG/0.4 ML Syringe SC (06:16)
[2018-04-02] MEDS: Levothyroxine 88 MCG Tablet PO (06:16)
[2018-04-02 06:40] LABS: Bedside Glucose 91 mg/dL (70-110)
[2018-04-02 07:00] LABS: Anion Gap 7 (5-15); BUN 5 mg/dL (7-18); Chloride 114 mmol/L (98-107); Creatinine, Serum 0.83 mg/dL (0.70-1.30); EST Glomerular Filtration Rate 97 mL/min (>60); Est Glom Filt Rate - Afr Amer 117 mL/min (>60); Estimated Creatinine Clearance 93.53 ml/min; Glucose 97 mg/dL (74-106); Magnesium 1.9 mg/dL (1.6-2.6); Potassium 4.2 mmol/L (3.5-5.1); Sodium Level 145 mmol/L (136-145)
[2018-04-02] MEDS: Bisacodyl 10 MG Suppository RECTAL (07:59)
[2018-04-02] MEDS: Amox/Clavulanate 875 MG Tablet PO ×2 (08:04→16:16)
[2018-04-02] MEDS: Amiodarone 200 MG Tablet PO (08:09)
[2018-04-02] MEDS: Docusate Sodium 100 MG/10 ML UDC PO ×2 (08:09→21:51)
[2018-04-02] MEDS: Sertraline 50 MG Tablet PO (08:09)
[2018-04-02] MEDS: Carvedilol 12.5 MG Tablet PO ×2 (08:10→21:51)
[2018-04-02] MEDS: Menthol/Lanolin/Calamine/Znox 113 GM Tube 1 APPLIC TOPICAL ×2 (08:11→21:50)
[2018-04-02] MEDS: Polyethylene Glycol 3350 17 GM PACKET PO (08:11)
--- NOTE | 2018-04-02 08:20 | PCM.PN.HOSP ---
Patient Problems: Active and Suspected Problems Pseudoobstruction of colon (Acute) Abdominal distension (gaseous) (Acute) Subjective: Denies any abdominal pain. States that he wants to go home. Vitals/I&O's: Vital Signs Temp Pulse Resp BP Pulse Ox 36.6 C 74 16 138/93 H 98 04/02/18 03:02 04/02/18 07:14 04/02/18 07:14 04/02/18 03:02 04/02/18 07:14 Oxygen Flow Rate (L/min) 1 Oxygen Delivery Method Nasal Cannula Weight: 85.4 kg Body Mass Index (BMI) 24.1 Finger Stick Blood Glucose 105 Intake and Output for Last 24 Hours 03/31/18 04/01/18 04/02/18 23:59 23:59 23:59 Intake Total 3567 / 3567 1612 / 1612 2057 / 2057 Output Total 2004 1400 / 1400 650 / 650 Balance 1562 / 1562 212 / 212 1408 / 1408 General: Alert, No apparent distress HEENT: Atraumatic, Normocephalic Oral: Moist Mucosa, No Gingival or Mucosal Lesions/ Ulcerations Neck: No Nodes, Thyroid Normal Size and Texture Lungs: Clear to auscultation, Normal air movement, No rhonchi, No wheeze Cardiovascular: Regular rate, Regular Rhythm, Normal S1, Normal S2, No murmurs Abdomen: Bowel Sounds Present, Soft, Non Tender, Non-Distended, No Hepato-splenomegaly Extremities: No edema, No Calf Tenderness Skin: No rashes, No breakdown Psych/Mental Status: Normal Affect, Appropriate Laboratory Results 04/01/18 11:17: POC Glucose 117 H 04/01/18 16:38: POC Glucose 93 04/01/18 21:20: POC Glucose 99 04/02/18 06:18: POC Glucose 91 04/02/18 06:20: Sodium 145, Potassium 4.2, Chloride 114 H, Carbon Dioxide 24.0, Anion Gap 7, BUN 5 L, Creatinine 0.83, Estim Creat Clear Calc 93.53, Est GFR (MDRD) Af Amer 117, Est GFR (MDRD) Non-Af 97, BUN/Creatinine Ratio 6.0 L, Glucose 97, Calcium 8.0 L, Magnesium 1.9 Current Medications Acetaminophen (Tylenol) 650 mg PO Q6H PRN PRN PRN Reason: PAIN Albuterol Sulfate (Ventolin Aerosols) 2.5 mg INHALATION Q2H PRN PRN PRN Reason: sob/wheezing Last Admin: 04/01/18 04:14 Dose: 2.5 mg Albuterol/Ipratropium (Duoneb) 3 ml INHALATION Q4HWA.RT [facility] Last Admin: 04/02/18 07:10 Dose: 3 ml Amiodarone HCl (Cordarone) 200 mg PO DAILY [facility] Last Admin: 04/01/18 09:11 Dose: 200 mg Amoxicillin/Clavulanate Potassium (Augmentin Tablet) 875 mg PO BIDCM [facility] Last Admin: 04/01/18 16:48 Dose: 875 mg Atorvastatin Calcium (Lipitor) 40 mg PO QHS [facility] Last Admin: 04/01/18 21:02 Dose: 40 mg Bisacodyl (Dulcolax) 10 mg RECTAL DAILY [facility] Last Admin: 04/01/18 09:15 Dose: Not Given Calamine/Phenol (Calmoseptine Ointment) 1 applic TOPICAL BID [facility]; Protocol Last Admin: 04/01/18 21:02 Dose: 1 applicatio Carvedilol (Coreg) 12.5 mg PO BID [facility] Last Admin: 04/01/18 21:02 Dose: 12.5 mg Dextrose (D50w Syringe) 0 gm IV X1 PRN; Protocol PRN Reason: Hypoglycemia Last Admin: 03/29/18 11:27 Dose: 12.5 gm Docusate Sodium (Colace Syrup) 100 mg PO BID [facility] Last Admin: 04/01/18 21:02 Dose: 100 mg Enoxaparin Sodium (Lovenox) 40 mg SC DAILY@0600 [facility] Last Admin: 04/02/18 06:16 Dose: 40 mg Glucagon () 1 mg IM .X1 PRN PRN Reason: Hypoglycemia Potassium Chloride/Sodium Chloride (Kcl 20meq In 0.45% Ns 1000ml) 1,000 mls @ 100 mls/hr IV .Q10H [facility] Last Admin: 04/02/18 06:22 Dose: 100 mls/hr Insulin Human Lispro (Humalog Kwikpen (Bkc)) 0 unit SC ACHS [facility]; Protocol Last Admin: 04/02/18 06:24 Dose: Not Given Levothyroxine Sodium (Synthroid) 88 mcg PO DAILY@0600 [facility] Last Admin: 04/02/18 06:16 Dose: 88 mcg Magnesium Hydroxide (Milk Of Magnesia) 30 ml PO DAILY PRN PRN Reason: Constipation Last Admin: 03/20/18 21:08 Dose: 30 ml Polyethylene Glycol (Miralax) 17 gm PO DAILY [facility] Last Admin: 04/01/18 09:13 Dose: 17 gm Potassium Chloride (K-Dur) 40 meq PO BIDCM [facility] Last Admin: 04/01/18 16:49 Dose: 40 meq Sertraline HCl (Zoloft) 50 mg PO DAILY [facility] Last Admin: 04/01/18 09:13 Dose: 50 mg Sodium Chloride () 5 - 15 ml IV UD PRN PRN Reason: SALINE FLUSH Last Admin: 04/01/18 04:30 Dose: 10 ml Tamsulosin HCl (Flomax) 0.4 mg PO QHS [facility] Last Admin: 04/01/18 21:02 Dose: 0.4 mg Warfarin Sodium (Coumadin (Pbkc)) 2.5 mg PO DAILY@1700 [facility] Last Admin: 04/01/18 16:48 Dose: 2.5 mg Medical Necessity - Tobacco Use Smoking Status: Unknown if ever smoked Tobacco Use: Cigarettes Assessment/Plan All Active Problems Pseudoobstruction of colon (Acute) Aspiration pneumonitis (Resolved) Abdominal distension (gaseous) (Acute) Bilateral leg ulcer (Resolved) GI bleeding (Resolved) 1. Colonic pseudo-obstruction improved after decompression, however, seems to be worsened after rectal tube removed, though stable from 04/03. avoid agents that may aggravate the condition (e.g., narcotics) Previously, I discussed with patient's , if this recurs, I advised against surgery (e.g., cecostomy tube, resection). I do not feel that it would provide him any quality of life if he were to have it. Abdominal xray shows gaseous distention. 2. Aspiration pneumonia dc augmentin, completed course. 3. Dysphagia modified diet continue speech therapy. 4. Prognosis Guarded to discuss with her children. As of 04/01, was to let us know on disposition: to tertiary facility for a second opinion or hospice. The patient's decline transfer to another facility 04/01, demanding he remain here until she could talk with her children. 5. Chronic afib Continue warfarin, amio, carvedilol 6. DVT proph: as INR is subtherapeutic, will add lovenox. Code Visit Inpatient E&M: 80952 Subs Hosp L2
--- NOTE | 2018-04-02 08:25 | PN_ITS ---
Patient Problems: Active and Suspected Problems Pseudoobstruction of colon (Acute) Abdominal distension (gaseous) (Acute) Subjective: Denies any abdominal pain. States that he wants to go home. Vitals/I&O's: Vital Signs Temp Pulse Resp BP Pulse Ox 36.6 C 74 16 138/93 H 98 04/02/18 03:02 04/02/18 07:14 04/02/18 07:14 04/02/18 03:02 04/02/18 07:14 Oxygen Flow Rate (L/min) 1 Oxygen Delivery Method Nasal Cannula Weight: 85.4 kg Body Mass Index (BMI) 24.1 Finger Stick Blood Glucose 105 Intake and Output for Last 24 Hours 03/31/18 04/01/18 04/02/18 23:59 23:59 23:59 Intake Total 3567 / 3567 1612 / 1612 2057 / 2057 Output Total 2004 1400 / 1400 650 / 650 Balance 1562 / 1562 212 / 212 1408 / 1408 General: Alert, No apparent distress HEENT: Atraumatic, Normocephalic Oral: Moist Mucosa, No Gingival or Mucosal Lesions/ Ulcerations Neck: No Nodes, Thyroid Normal Size and Texture Lungs: Clear to auscultation, Normal air movement, No rhonchi, No wheeze Cardiovascular: Regular rate, Regular Rhythm, Normal S1, Normal S2, No murmurs Abdomen: Bowel Sounds Present, Soft, Non Tender, Non-Distended, No Hepato- splenomegaly Extremities: No edema, No Calf Tenderness Skin: No rashes, No breakdown Psych/Mental Status: Normal Affect, Appropriate Laboratory Results 04/01/18 11:17: POC Glucose 117 H 04/01/18 16:38: POC Glucose 93 04/01/18 21:20: POC Glucose 99 04/02/18 06:18: POC Glucose 91 04/02/18 06:20: Sodium 145, Potassium 4.2, Chloride 114 H, Carbon Dioxide 24.0, Anion Gap 7, BUN 5 L, Creatinine 0.83, Estim Creat Clear Calc 93.53, Est GFR (MDRD) Af Amer 117, Est GFR (MDRD) Non-Af 97, BUN/Creatinine Ratio 6.0 L, Glucose 97, Calcium 8.0 L, Magnesium 1.9 Current Medications Acetaminophen (Tylenol) 650 mg PO Q6H PRN PRN PRN Reason: PAIN Albuterol Sulfate (Ventolin Aerosols) 2.5 mg INHALATION Q2H PRN PRN PRN Reason: sob/wheezing Last Admin: 04/01/18 04:14 Dose: 2.5 mg Albuterol/Ipratropium (Duoneb) 3 ml INHALATION Q4HWA.RT [facility] Last Admin: 04/02/18 07:10 Dose: 3 ml Amiodarone HCl (Cordarone) 200 mg PO DAILY [facility] Last Admin: 04/01/18 09:11 Dose: 200 mg Amoxicillin/Clavulanate Potassium (Augmentin Tablet) 875 mg PO BIDCM [facility] Last Admin: 04/01/18 16:48 Dose: 875 mg Atorvastatin Calcium (Lipitor) 40 mg PO QHS [facility] Last Admin: 04/01/18 21:02 Dose: 40 mg Bisacodyl (Dulcolax) 10 mg RECTAL DAILY [facility] Last Admin: 04/01/18 09:15 Dose: Not Given Calamine/Phenol (Calmoseptine Ointment) 1 applic TOPICAL BID [facility]; Protocol Last Admin: 04/01/18 21:02 Dose: 1 applicatio Carvedilol (Coreg) 12.5 mg PO BID [facility] Last Admin: 04/01/18 21:02 Dose: 12.5 mg Dextrose (D50w Syringe) 0 gm IV X1 PRN; Protocol PRN Reason: Hypoglycemia Last Admin: 03/29/18 11:27 Dose: 12.5 gm Docusate Sodium (Colace Syrup) 100 mg PO BID [facility] Last Admin: 04/01/18 21:02 Dose: 100 mg Enoxaparin Sodium (Lovenox) 40 mg SC DAILY@0600 [facility] Last Admin: 04/02/18 06:16 Dose: 40 mg Glucagon () 1 mg IM .X1 PRN PRN Reason: Hypoglycemia Potassium Chloride/Sodium Chloride (Kcl 20meq In 0.45% Ns 1000ml) 1,000 mls @ 100 mls/hr IV .Q10H [facility] Last Admin: 04/02/18 06:22 Dose: 100 mls/hr Insulin Human Lispro (Humalog Kwikpen (Bkc)) 0 unit SC ACHS [facility]; Protocol Last Admin: 04/02/18 06:24 Dose: Not Given Levothyroxine Sodium (Synthroid) 88 mcg PO DAILY@0600 [facility] Last Admin: 04/02/18 06:16 Dose: 88 mcg Magnesium Hydroxide (Milk Of Magnesia) 30 ml PO DAILY PRN PRN Reason: Constipation Last Admin: 03/20/18 21:08 Dose: 30 ml Polyethylene Glycol (Miralax) 17 gm PO DAILY [facility] Last Admin: 04/01/18 09:13 Dose: 17 gm Potassium Chloride (K-Dur) 40 meq PO BIDCM [facility] Last Admin: 04/01/18 16:49 Dose: 40 meq Sertraline HCl (Zoloft) 50 mg PO DAILY [facility] Last Admin: 04/01/18 09:13 Dose: 50 mg Sodium Chloride () 5 - 15 ml IV UD PRN PRN Reason: SALINE FLUSH Last Admin: 04/01/18 04:30 Dose: 10 ml Tamsulosin HCl (Flomax) 0.4 mg PO QHS [facility] Last Admin: 04/01/18 21:02 Dose: 0.4 mg Warfarin Sodium (Coumadin (Pbkc)) 2.5 mg PO DAILY@1700 [facility] Last Admin: 04/01/18 16:48 Dose: 2.5 mg Medical Necessity - Tobacco Use Smoking Status: Unknown if ever smoked Tobacco Use: Cigarettes Assessment/Plan All Active Problems Pseudoobstruction of colon (Acute) Aspiration pneumonitis (Resolved) Abdominal distension (gaseous) (Acute) Bilateral leg ulcer (Resolved) GI bleeding (Resolved) 1. Colonic pseudo-obstruction improved after decompression, however, seems to be worsened after rectal tube removed, though stable from 04/03. avoid agents that may aggravate the condition (e.g., narcotics) Previously, I discussed with patient's , if this recurs, I advised against surgery (e.g., cecostomy tube, resection). I do not feel that it would provide him any quality of life if he were to have it. Abdominal xray shows gaseous distention. 2. Aspiration pneumonia dc augmentin, completed course. 3. Dysphagia modified diet continue speech therapy. 4. Prognosis Guarded to discuss with her children. As of 04/01, was to let us know on disposition: to tertiary facility for a second opinion or hospice. The patient's decline transfer to another facility 04/01, demanding he remain here until she could talk with her children. 5. Chronic afib Continue warfarin, amio, carvedilol 6. DVT proph: as INR is subtherapeutic, will add lovenox. Code Visit Inpatient E&M: 43679 Subs Hosp L2
--- NOTE | 2018-04-02 09:05 | PCM.PN.SRG ---
Patient Problems: Active and Suspected Problems Pseudoobstruction of colon (Acute) Abdominal distension (gaseous) (Acute) Subjective: Patient was evaluated resting in bed this morning. Patient denies abdominal pain/discomfort. - Physical Exam General: Alert, Cooperative Abdomen: Hypoactive Bowel Sounds, Distended - moderately Vital Signs Temp Pulse Resp BP Pulse Ox 98.4 F 74 24 H 141/88 H 96 04/02/18 08:25 04/02/18 08:25 04/02/18 08:25 04/02/18 08:25 04/02/18 08:25 Oxygen Flow Rate (L/min) 2 Oxygen Delivery Method Nasal Cannula Weight: 188 lb 4.396 oz Body Mass Index (BMI) 24.1 Finger Stick Blood Glucose 105 Intake and Output for Last 24 Hours 03/31/18 04/01/18 04/02/18 23:59 23:59 23:59 Intake Total 3567 / 3567 1612 / 1612 2057 / 2057 Output Total 2004 1400 / 1400 650 / 650 Balance 1562 / 1562 212 / 212 1408 / 1408 Laboratory Tests Past 24 Hrs 04/02/18 04/02/18 06:20 08:34 PT Pending INR Pending Sodium 145 Potassium 4.2 Chloride 114 H Carbon Dioxide 24.0 Anion Gap 7 BUN 5 L Creatinine 0.83 Estim Creat Clear Calc 93.53 Est GFR (MDRD) Af Amer 117 Est GFR (MDRD) Non-Af 97 BUN/Creatinine Ratio 6.0 L Glucose 97 Calcium 8.0 L Magnesium 1.9 POC Glucose 04/02/18 04/01/18 04/01/18 06:18 21:20 16:38 POC Glucose 91 99 93 04/01/18 11:17 POC Glucose 117 H Medical Necessity - Tobacco Use Smoking Status: Unknown if ever smoked Tobacco Use: Cigarettes Assessment/Plan All Active Problems Pseudoobstruction of colon (Acute) Aspiration pneumonitis (Resolved) Abdominal distension (gaseous) (Acute) Bilateral leg ulcer (Resolved) GI bleeding (Resolved) I am following this patient in conjunction with Dr. Saleem Impression: [place]'s syndrome.Abdomen distended again. KUB reviewed. Continue bowel regimen Discussed patient with Dr. Saleem No further rectal tube being placed Patient's family deciding upon palliative care Refused to be transferred to tertiary facility Patient is high risk for surgical procedure and would not recover well. We will continue to closely monitor this patient. Code Visit Inpatient E&M: 55006 Subs Hosp L1
[2018-04-02 09:18] LABS: International Normalized Ratio 2.1; Prothrombin Time (Protime)PT. 23.4 SECONDS (11.7-14.9)
--- NOTE | 2018-04-02 09:30 | CASEMGMT ---
Addendum entered by Armando Logan 04/02/18 12:52: Pt's states pt has been to [facility] in past under this insurance. If transfer to [facility] is requested, recommend RN MANDY call to insurance to prior authorize transfer to this hospital. Christina PARNELL Original Note: ANGELITA GALVAN NOTE: Insurance look up via Health Plan website for InNetwork Facilities for Tertiary Care. [facility], [facility], [facility], [place] (note: [facility] and [facility] are NOT InNetwork per website). Christina PARNELL
[2018-04-02 11:26] LABS: Bedside Glucose 92 mg/dL (70-110)
--- NOTE | 2018-04-02 12:55 | CASEMGMT ---
SW spoke w/ and daughter in room in regard to plan. They did sign up for palliative, and talked about taking pt home with palliative and home care vs home on hospice, vs being transferred to another hospital. expressed frustration w/not understanding what is going on w/pt. She states she is okay w/hospice but would ant an autopsy done. She wants to understand medically what is going on and she states nobody here has been able to tell them. She states this has been going on for 9 months. Pt has not been in any other hospitals. SW asked if she would want pt transferred to another hospital so she can possibly get a different understanding of the situation. She states her son is a CCU nurse and works for [employer], and he says no. Daughter also says no. SW did give list of facilities in network w/insurance if needed. She states pt has been to [facility], though they are not in network. SW explained if they decided they wanted transferred to [facility] then we can call to ask. seems to be thinking she wants to take pt home and home on hospice. SW explained is going to a meeting, but she can let nurse know and if this is what they want the nurse can call hospice to come see them again. They did not go over much about hospice yesterday. states understanding. SW also offered to call the pt advocate for the pt and family, declined at this time. SW let RN know that family may ask for hospice to be called. SW remains available. KARLA Magallon, FOOD MIXER ASSEMBLER
--- NOTE | 2018-04-02 14:36 | CASEMGMT ---
ANGELITA GALVAN Note. requesting to return pt home tomorrow with Palliative Care. she states she has hospital bed, walker and daughter and two grandsons are available to assist. ANGELITA GALVAN discussed Home Health, but would like to see how pt does @ home first. Explained that if his condition changes at home, or she needs Home Health, she can contact PCP or Palliative Care nurse to assist. states she feels they will be able to care for pt at home with family support. ANGELITA GALVAN discussed how pt will return home, recommending ambulance as pt has not been active in hospital. states she is bringing her grandsons, and they will transport pt home in car. marc nurse and JARRED Youngblood updated on plan for tomorrow. Christina RUIZ RN [facility]
[2018-04-02 16:45] LABS: Bedside Glucose 93 mg/dL (70-110)
[2018-04-02] MEDS: Tamsulosin HCl 0.4 MG Capsule PO (21:51)
[2018-04-02] MEDS: Atorvastatin Calcium 40 MG Tablet PO (21:51)
[2018-04-02] MEDS: Acetaminophen 325 MG Tablet 650 MG PO (21:59)
[2018-04-02 22:20] LABS: Bedside Glucose 96 mg/dL (70-110)
[2018-04-03 03:04] VITALS: BP 131/86; PULSE 69; RESP 18; TEMP 36; O2SAT 95
[2018-04-03] MEDS: Acetaminophen 325 MG Tablet 650 MG PO (05:40)
[2018-04-03] MEDS: Enoxaparin 40 MG/0.4 ML Syringe SC (05:40)
[2018-04-03] MEDS: Levothyroxine 88 MCG Tablet PO (05:40)
[2018-04-03] MEDS: 0.9% NaCl Peripheral Flush Adult/Peds IV (05:41)
[2018-04-03 07:00] LABS: Bedside Glucose 89 mg/dL (70-110)
[2018-04-03] MEDS: Ipratropium/Albuterol Sulfate 3 ML AMPUL.NEB INHALATION ×2 (07:04→10:40)
[2018-04-03 07:05] VITALS: PULSE 70; RESP 16; O2SAT 95
[2018-04-03 08:17] LABS: Anion Gap 7 (5-15); BUN 8 mg/dL (7-18); BUN/Creat Ratio 9.3 RATIO (10-20); Calcium,Total 7.9 mg/dL (8.5-10.1); Chloride 113 mmol/L (98-107); Creatinine, Serum 0.86 mg/dL (0.70-1.30); EST Glomerular Filtration Rate 92 mL/min (>60); Est Glom Filt Rate - Afr Amer 112 mL/min (>60); Estimated Creatinine Clearance 90.27 ml/min; Glucose 94 mg/dL (74-106); Sodium Level 145 mmol/L (136-145)
[2018-04-03 08:45] LABS: International Normalized Ratio 2.9; Prothrombin Time (Protime)PT. 30.7 SECONDS (11.7-14.9)
--- NOTE | 2018-04-03 09:04 | DCINST_ITS ---
- Discharge Diagnoses Current Active Problems: Current Active and Chronic Problems Abdominal distension (gaseous) (Acute) You will use the following diet at home:: Regular Your food should be the consistency of: Regular Your liquids should be the consistency of: Regular/Thin Discharge Activity: - - up with assist. Call your doctor if you observe: - - worsening abdominal pain. intractable nausea/vomiting. Additional Instructions: Palliative Care. Allergies/Adverse Reactions: Allergies latex Allergy (Verified 03/20/18 14:39) Rash LEEANN Inhibitors Adverse Reaction (Verified 03/20/18 14:39) Other Medications to take at Discharge Carvedilol [Coreg (Beta Kaycee)] 12.5 mg PO BID 10/28/16 Levothyroxine [Synthroid] 88 mcg PO DAILY 10/28/16 Tamsulosin HCl [Flomax] 0.4 mg PO QHS 10/28/16 Sertraline HCl [Zoloft] 50 mg PO DAILY 07/21/17 Amiodarone HCl 200 mg PO DAILY 03/20/18 Aspirin E.C. [Ecotrin] 81 mg PO DAILY@0800 03/20/18 Atorvastatin Calcium 40 mg PO QHS 03/20/18 Losartan Potassium 25 mg PO DAILY 03/20/18 Metformin(XR) [Glucophage Xr] 500 mg PO DAILY 03/20/18 Quetiapine Fumarate [Seroquel] 25 mg PO QHS 03/20/18 Ondansetron HCl [Zofran] 8 mg SL TID PRN #30 tablet 04/03/18 Warfarin [Coumadin] 2 mg PO DAILY #30 tablet 04/03/18 morphine solution (IR) [Roxanol (IR oral solution)] 5 mg PO Q4H PRN 3 Days #30 po.syringe 04/03/18 The following prescriptions were given: morphine solution (IR) [Roxanol (IR oral solution)] 5 mg PO Q4H PRN 3 Days #30 po.syringe PRN Reason: pain. shortness of breath Warfarin [Coumadin] 2 mg PO DAILY #30 tablet Ondansetron HCl [Zofran] 8 mg SL TID PRN #30 tablet PRN Reason: Nausea Orders to be completed after discharge: Prothrombin Time w/INR Time Frame: 1 Week, Location: Laboratory Primary Care Physician: Donnie Marrero DO [Primary Care Provider] - Within 1 Week Test Results: Test results from this visit will be discussed in further detail at your follow- up appointment, if applicable. Proposed Discharge Date: 04/03/18
--- NOTE | 2018-04-03 09:04 | PCM.DC.SUM ---
Discharge Date and Diagnosis - Problem List Patient Problems: Active and Suspected Problems Abdominal distension (gaseous) (Acute) Date of Admission: 03/20/18 Date of Discharge: 04/03/18 - Primary Discharge Diagnosis Active and Suspected Problems Abdominal distension (gaseous) (Acute) - Secondary Discharge Diagnosis Chronic Problems Hearing deficit (Chronic) Hypertension (Chronic) Systolic congestive heart failure (Chronic) Aortic stenosis (Chronic) Pulmonary hypertension (Chronic) Ischemic cardiomyopathy (Chronic) Iron deficiency anemia (Chronic) BPH (benign prostatic hyperplasia) (Chronic) Splenomegaly (Chronic) Gallbladder sludge (Chronic) Fatty infiltration of liver (Chronic) Venous stasis ulcers of both lower extremities (Chronic) PAD (peripheral artery disease) (Chronic) Stage III chronic kidney disease (Chronic) Chronic atrial fibrillation (Chronic) Status post coronary artery bypass graft (Chronic) Decubitus ulcer of sacral area (Chronic) Hypothyroidism (Chronic) CVA (cerebral vascular accident) (Chronic) CAD (coronary artery disease) (Chronic) Hospital Course and Treatment Imaging Results: Clinical Impression(s) from Imaging Studies Chest X-Ray 03/20/18 14:50 IMPRESSION: Underexpanded lungs, chronic interstitial changes, no superimposed acute process Multiple dilated air-filled bowel loops suggestive of obstructive process with little significant change since the previous study Electronically Signed: Yassine Hobson MD at 15:51 EST , Service support , KUB X-Ray 03/20/18 16:37 IMPRESSION: Severely distended gas-filled loops of bowel for which a distal obstruction cannot be excluded. Consider Jackeline's. Given the amount of distention of the bowel and gas free air is not excluded or excluded. Comment consideration for follow-up CT scan of the abdomen and pelvis when appropriate. Electronically Signed: Breana Anderson MD at 17:55 EST Tel , Service support , Abdomen/Pelvis CT 03/23/18 09:02 IMPRESSION: Marked degree of colonic distention down to the rectum. Moderate amount of fecal material is seen in the rectum. Jackeline's syndrome should be ruled out. There is evidence of pneumatosis in the bowel wall in the region of the posterior cecum as well as the descending colon. The transverse dimension of the cecum is 18.1 cm. Electronically Signed: Edgard Alejo MD at 10:10 EST Tel [phone], Service support , Abdomen X-Ray 03/26/18 20:15 IMPRESSION: Marked gaseous distention of the colon to the level of the sigmoid, increased in severity from the prior study. The cecum measures up to 21.7 cm in diameter. Electronically Signed: Kiko Zhou MD at 20:41 EST , Service support , KUB X-Ray 04/01/18 12:10 IMPRESSION: Stable gaseous distention of the colon to the level of the sigmoid, unchanged from the prior study. The cecum measures up to 21.7 cm in diameter. Electronically Signed: Yassine Hobson MD at 17:12 EST , Service support , Delmar Saleem MD: General Surgery. Operations: None Procedures: Colonoscopy - for decompression and decompressive tube placement. Summary of Care Provided: The patient is a 72 year old M presents with hypoxia. Patient aspirated at home and was noted to be hypoxic. Patient was 88% on room air in the patient was started on Unasyn and eventually changed over to Augmentin to complete a course of treatment for antibiotics. Patient's vomiting that led to his aspiration was due to pseudoobstruction of his colon. Patient had a CAT scan that showed marked degree of colonic distention down to the rectum. The patient underwent a decompressive colonoscopy by Dr. Saleem on the . He had tube for decompression placed with that. Patient did have improvement of his abdominal distention with that procedure. Rectal tube removed on the . Patient did have increased abdominal distention thereafter. Initially felt to be too high risk by surgery and discussed loop ileostomy to help with decompression with a rectal tube. Family did meet with palliative care and numerous physicians, including myself, recommended hospice and recommended against surgical procedures as it may ultimately not change his quality of life. Plan as of today, is for the patient to go home with palliative care services.. Patient already does have a hospital bed at home. Concern is that the patient's abdominal distention is going to get worse as the conservative measures will infective long-term. Prognosis is guarded and patient has a high likelihood of readmission. Later today, the patient's agreed to send the patient home with hospice. Therefore, the patient will be discharged home with hospice services. [] Patient Problems: Active and Suspected Problems Abdominal distension (gaseous) (Acute) - Physical Exam General: Confused, - - afebrile HEENT: Atraumatic, Normocephalic Neck: No Nodes, Thyroid Normal Size and Texture Lungs: Diminished, - - coarse breath sounds bilaterally. Cardiovascular: Regular rate, Regular Rhythm, Normal S1, Normal S2, No murmurs Abdomen: Bowel Sounds Present, Soft, Non Tender, Non-Distended, No Hepato-splenomegaly Extremities: No edema, No Calf Tenderness Vital Signs Temp Pulse Resp BP Pulse Ox 36.0 C L 70 16 131/86 H 95 04/03/18 03:04 04/03/18 07:05 04/03/18 07:05 04/03/18 03:04 04/03/18 07:05 Oxygen Flow Rate (L/min) 2 Oxygen Delivery Method Nasal Cannula Weight: 85.4 kg Body Mass Index (BMI) 24.1 Finger Stick Blood Glucose 105 Intake and Output for Last 24 Hours 04/01/18 04/02/18 04/03/18 23:59 23:59 23:59 Intake Total 1612 / 1612 3191 / 3191 100 / 100 Output Total 1400 / 1400 1225 / 1225 175 / 175 Balance 212 / 212 1965 / 1965 -75 / -75 Laboratory Tests Past 24 Hrs 04/02/18 04/03/18 04/03/18 08:34 07:50 07:50 PT 23.4 H 30.7 H INR 2.1 2.9 Sodium 145 Potassium 4.0 Chloride 113 H Carbon Dioxide 25.0 Anion Gap 7 BUN 8 Creatinine 0.86 Estim Creat Clear Calc 90.27 Est GFR (MDRD) Af Amer 112 Est GFR (MDRD) Non-Af 92 BUN/Creatinine Ratio 9.3 L Glucose 94 Calcium 7.9 L POC Glucose 04/03/18 04/02/18 04/02/18 06:58 22:01 16:14 POC Glucose 89 96 93 04/02/18 11:14 POC Glucose 92 Discharge Activity: - - up with assist. Call your doctor if you observe: - - worsening abdominal pain. intractable nausea/vomiting. Home Medications: Medications to take at Discharge Carvedilol [Coreg (Beta Kaycee)] 12.5 mg PO BID 10/28/16 Levothyroxine [Synthroid] 88 mcg PO DAILY 10/28/16 Tamsulosin HCl [Flomax] 0.4 mg PO QHS 10/28/16 Sertraline HCl [Zoloft] 50 mg PO DAILY 07/21/17 Amiodarone HCl 200 mg PO DAILY 03/20/18 Aspirin E.C. [Ecotrin] 81 mg PO DAILY@0800 03/20/18 Atorvastatin Calcium 40 mg PO QHS 03/20/18 Losartan Potassium 25 mg PO DAILY 03/20/18 Metformin(XR) [Glucophage Xr] 500 mg PO DAILY 03/20/18 Quetiapine Fumarate [Seroquel] 25 mg PO QHS 03/20/18 Ondansetron HCl [Zofran] 8 mg SL TID PRN #30 tablet 04/03/18 Warfarin [Coumadin] 2 mg PO DAILY #30 tablet 04/03/18 morphine solution (IR) [Roxanol (IR oral solution)] 5 mg PO Q4H PRN 3 Days #30 po.syringe 04/03/18 Following Prescrptions Were Given to Patient: morphine solution (IR) [Roxanol (IR oral solution)] 5 mg PO Q4H PRN 3 Days #30 po.syringe PRN Reason: pain. shortness of breath Warfarin [Coumadin] 2 mg PO DAILY #30 tablet Ondansetron HCl [Zofran] 8 mg SL TID PRN #30 tablet PRN Reason: Nausea Other Amb Orders: Prothrombin Time w/INR Time Frame: 1 Week, Location: Laboratory Primary Care Physician: Donnie Marrero DO [Primary Care Provider] - Within 1 Week Disposition: Home with Home Health Minutes spent on discharge:: 35 Patient Condition:: Poor Medical Necessity - Tobacco Use Smoking Status: Unknown if ever smoked Tobacco Use: Cigarettes Meaningful Use Info Meaningful Use Diagnoses (Choose all that apply): None applicable Code Visit Inpatient E&M: 07769 Disch Hosp
[2018-04-03 09:10] VITALS: BP 130/85; PULSE 74; RESP 18; TEMP 36.7; O2SAT 97
--- NOTE | 2018-04-03 09:13 | DS.PCM_ITS ---
Discharge Date and Diagnosis - Problem List Patient Problems: Active and Suspected Problems Abdominal distension (gaseous) (Acute) Date of Admission: 03/20/18 Date of Discharge: 04/03/18 - Primary Discharge Diagnosis Active and Suspected Problems Abdominal distension (gaseous) (Acute) - Secondary Discharge Diagnosis Chronic Problems Hearing deficit (Chronic) Hypertension (Chronic) Systolic congestive heart failure (Chronic) Aortic stenosis (Chronic) Pulmonary hypertension (Chronic) Ischemic cardiomyopathy (Chronic) Iron deficiency anemia (Chronic) BPH (benign prostatic hyperplasia) (Chronic) Splenomegaly (Chronic) Gallbladder sludge (Chronic) Fatty infiltration of liver (Chronic) Venous stasis ulcers of both lower extremities (Chronic) PAD (peripheral artery disease) (Chronic) Stage III chronic kidney disease (Chronic) Chronic atrial fibrillation (Chronic) Status post coronary artery bypass graft (Chronic) Decubitus ulcer of sacral area (Chronic) Hypothyroidism (Chronic) CVA (cerebral vascular accident) (Chronic) CAD (coronary artery disease) (Chronic) Hospital Course and Treatment Imaging Results: Clinical Impression(s) from Imaging Studies Chest X-Ray 03/20/18 14:50 IMPRESSION: Underexpanded lungs, chronic interstitial changes, no superimposed acute process Multiple dilated air-filled bowel loops suggestive of obstructive process with little significant change since the previous study Electronically Signed: Yassine Hobson MD at 15:51 EST , Service support , KUB X-Ray 03/20/18 16:37 IMPRESSION: Severely distended gas-filled loops of bowel for which a distal obstruction cannot be excluded. Consider Jackeline's. Given the amount of distention of the bowel and gas free air is not excluded or excluded. Comment consideration for follow-up CT scan of the abdomen and pelvis when appropriate. Electronically Signed: Breana Anderson MD at 17:55 EST Tel , Service support , Abdomen/Pelvis CT 03/23/18 09:02 IMPRESSION: Marked degree of colonic distention down to the rectum. Moderate amount of fecal material is seen in the rectum. Jackeline's syndrome should be ruled out. There is evidence of pneumatosis in the bowel wall in the region of the posterior cecum as well as the descending colon. The transverse dimension of the cecum is 18.1 cm. Electronically Signed: Edgard Alejo MD at 10:10 EST Tel [phone], Service support , Abdomen X-Ray 03/26/18 20:15 IMPRESSION: Marked gaseous distention of the colon to the level of the sigmoid, increased in severity from the prior study. The cecum measures up to 21.7 cm in diameter. Electronically Signed: Kiko Zhou MD at 20:41 EST , Service support , KUB X-Ray 04/01/18 12:10 IMPRESSION: Stable gaseous distention of the colon to the level of the sigmoid, unchanged from the prior study. The cecum measures up to 21.7 cm in diameter. Electronically Signed: Yassine Hobson MD at 17:12 EST , Service support , Delmar Saleem MD: General Surgery. Operations: None Procedures: Colonoscopy - for decompression and decompressive tube placement. Summary of Care Provided: The patient is a 72 year old M presents with hypoxia. Patient aspirated at home and was noted to be hypoxic. Patient was 88% on room air in the patient was started on Unasyn and eventually changed over to Augmentin to complete a course of treatment for antibiotics. Patient's vomiting that led to his aspiration was due to pseudoobstruction of his colon. Patient had a CAT scan that showed marked degree of colonic distention down to the rectum. The patient underwent a decompressive colonoscopy by Dr. Saleem on the . He had tube for decompression placed with that. Patient did have improvement of his abdominal distention with that procedure. Rectal tube removed on the . Patient did have increased abdominal distention thereafter. Initially felt to be too high risk by surgery and discussed loop ileostomy to help with decompression with a rectal tube. Family did meet with palliative care and numerous physicians, including myself, recommended hospice and recommended against surgical procedures as it may ultimately not change his quality of life. Plan as of today, is for the patient to go home with palliative care services.. Patient already does have a hospital bed at home. Concern is that the patient's abdominal distention is going to get worse as the conservative measures will infective long-term. Prognosis is guarded and patient has a high likelihood of readmission. Later today, the patient's agreed to send the patient home with hospice. Therefore, the patient will be discharged home with hospice services. [] Patient Problems: Active and Suspected Problems Abdominal distension (gaseous) (Acute) - Physical Exam General: Confused, - - afebrile HEENT: Atraumatic, Normocephalic Neck: No Nodes, Thyroid Normal Size and Texture Lungs: Diminished, - - coarse breath sounds bilaterally. Cardiovascular: Regular rate, Regular Rhythm, Normal S1, Normal S2, No murmurs Abdomen: Bowel Sounds Present, Soft, Non Tender, Non-Distended, No Hepato- splenomegaly Extremities: No edema, No Calf Tenderness Vital Signs Temp Pulse Resp BP Pulse Ox 36.0 C L 70 16 131/86 H 95 04/03/18 03:04 04/03/18 07:05 04/03/18 07:05 04/03/18 03:04 04/03/18 07:05 Oxygen Flow Rate (L/min) 2 Oxygen Delivery Method Nasal Cannula Weight: 85.4 kg Body Mass Index (BMI) 24.1 Finger Stick Blood Glucose 105 Intake and Output for Last 24 Hours 04/01/18 04/02/18 04/03/18 23:59 23:59 23:59 Intake Total 1612 / 1612 3191 / 3191 100 / 100 Output Total 1400 / 1400 1225 / 1225 175 / 175 Balance 212 / 212 1965 / 1965 -75 / -75 Laboratory Tests Past 24 Hrs 04/02/18 04/03/18 04/03/18 08:34 07:50 07:50 PT 23.4 H 30.7 H INR 2.1 2.9 Sodium 145 Potassium 4.0 Chloride 113 H Carbon Dioxide 25.0 Anion Gap 7 BUN 8 Creatinine 0.86 Estim Creat Clear Calc 90.27 Est GFR (MDRD) Af Amer 112 Est GFR (MDRD) Non-Af 92 BUN/Creatinine Ratio 9.3 L Glucose 94 Calcium 7.9 L POC Glucose 04/03/18 04/02/18 04/02/18 06:58 22:01 16:14 POC Glucose 89 96 93 04/02/18 11:14 POC Glucose 92 Discharge Activity: - - up with assist. Call your doctor if you observe: - - worsening abdominal pain. intractable nausea/vomiting. Home Medications: Medications to take at Discharge Carvedilol [Coreg (Beta Kaycee)] 12.5 mg PO BID 10/28/16 Levothyroxine [Synthroid] 88 mcg PO DAILY 10/28/16 Tamsulosin HCl [Flomax] 0.4 mg PO QHS 10/28/16 Sertraline HCl [Zoloft] 50 mg PO DAILY 07/21/17 Amiodarone HCl 200 mg PO DAILY 03/20/18 Aspirin E.C. [Ecotrin] 81 mg PO DAILY@0800 03/20/18 Atorvastatin Calcium 40 mg PO QHS 03/20/18 Losartan Potassium 25 mg PO DAILY 03/20/18 Metformin(XR) [Glucophage Xr] 500 mg PO DAILY 03/20/18 Quetiapine Fumarate [Seroquel] 25 mg PO QHS 03/20/18 Ondansetron HCl [Zofran] 8 mg SL TID PRN #30 tablet 04/03/18 Warfarin [Coumadin] 2 mg PO DAILY #30 tablet 04/03/18 morphine solution (IR) [Roxanol (IR oral solution)] 5 mg PO Q4H PRN 3 Days #30 po.syringe 04/03/18 Following Prescrptions Were Given to Patient: morphine solution (IR) [Roxanol (IR oral solution)] 5 mg PO Q4H PRN 3 Days #30 po.syringe PRN Reason: pain. shortness of breath Warfarin [Coumadin] 2 mg PO DAILY #30 tablet Ondansetron HCl [Zofran] 8 mg SL TID PRN #30 tablet PRN Reason: Nausea Other Amb Orders: Prothrombin Time w/INR Time Frame: 1 Week, Location: Laboratory Primary Care Physician: Donnie Marrero DO [Primary Care Provider] - Within 1 Week Disposition: Home with Home Health Minutes spent on discharge:: 35 Patient Condition:: Poor Medical Necessity - Tobacco Use Smoking Status: Unknown if ever smoked Tobacco Use: Cigarettes Meaningful Use Info Meaningful Use Diagnoses (Choose all that apply): None applicable Code Visit Inpatient E&M: 29874 Disch Hosp
[2018-04-03] MEDS: Docusate Sodium 100 MG/10 ML UDC PO (10:09)
[2018-04-03] MEDS: Menthol/Lanolin/Calamine/Znox 113 GM Tube 1 APPLIC TOPICAL (10:09)
[2018-04-03] MEDS: Carvedilol 12.5 MG Tablet PO (10:09)
[2018-04-03] MEDS: Amiodarone 200 MG Tablet PO (10:09)
[2018-04-03] MEDS: Sertraline 50 MG Tablet PO (10:10)
[2018-04-03] MEDS: Polyethylene Glycol 3350 17 GM PACKET PO (10:10)
[2018-04-03] MEDS: Bisacodyl 10 MG Suppository RECTAL (10:10)
[2018-04-03 10:41] VITALS: PULSE 74; RESP 16; O2SAT 96
[2018-04-03 11:31] LABS: Bedside Glucose 80 mg/dL (70-110)
--- NOTE | 2018-04-03 11:39 | CASEMGMT ---
RN MANDY Note: call to 's phone, message left that pt is dc'd. Call back information given for RN MANDY. Will speak again with when she comes to hospital re: transportation home and [facility] resumption. ANGELITA GALVAN spoke with Anna Marie from [facility]. they can resume care and see pt this weekend if decides to resume services. Christina RUIZ RN ACM
--- NOTE | 2018-04-03 13:51 | CASEMGMT ---
Addendum entered by Armando Logan 04/03/18 14:12: DC Summary/Instructions faxed to [facility]. Original Note: ANGELITA GALVAN Note. and daughter arrived to patient's room. ANGELITA GALVAN and JARRED Lopez discussed dc plan. and daughter requested pt be signed up to Hospice. JARRED Lopez called to [facility] to notify. Will see pt and @ Hospital today. Emotional support given, tearful. -[facility] HHS will not be resumed, call to Anna Marie to notify. Christina ALEJANDREN RN ACM
[2018-04-03 14:35] VITALS: PULSE 74; RESP 16
[2018-04-03 14:54] VITALS: BP 144/85; PULSE 67; RESP 20; TEMP 36.6; O2SAT 95
[2018-04-03 16:50] LABS: Bedside Glucose 101 mg/dL (70-110)
--- NOTE | 2018-04-06 13:08 | CASEMGMT ---
ANGELITA CM DC PHONE CALL DC DATE: 04/03/18 DC DISPOSITION: Home with [facility] LACE/STRATA: 24/06 Phone call deferred. Pt returned home with [facility]. Christina ALEJANDREN RN ACM
== END 2018-04-03 17:00 | disposition hospice, home (50) | DRG 344 ==
LOC: ED 17:42 → MS3 18:03 → PCU 18:19 → MS2 03-31 13:18 → MS3 04-03 14:55
PROVIDERS: Family Medicine; Internal Medicine; Nurse Practitioner Family; Physician Assistant; Surgery; Emergency Provider Emergency Medicine; Family Provider Student in an Organized Health Care Education/Training Program; PCP Student in an Organized Health Care Education/Training Program
PROC: 0DJD8ZZ Inspection of Lower Intestinal Tract, Via Natural or Artificial Opening Endoscopic (ICD-10-PCS; CPT 45378; principal; 2018-03-23 14:55)
DX: K59.8 Other specified functional intestinal disorders (principal); J69.0 Pneumonitis due to inhalation of food and vomit; N39.0 Urinary tract infection, site not specified; I13.0 Hypertensive heart and chronic kidney disease with heart failure and stage 1 through stage 4 chronic kidney disease, or unspecified chronic kidney disease; I50.22 Chronic systolic (congestive) heart failure; E44.0 Moderate protein-calorie malnutrition; I48.2 Chronic atrial fibrillation; E78.5 Hyperlipidemia, unspecified; E03.9 Hypothyroidism, unspecified; N40.0 Benign prostatic hyperplasia without lower urinary tract symptoms; R09.02 Hypoxemia; I25.10 Atherosclerotic heart disease of native coronary artery without angina pectoris; Z95.1 Presence of aortocoronary bypass graft; Z79.01 Long term (current) use of anticoagulants; Z79.84 Long term (current) use of oral hypoglycemic drugs; I25.5 Ischemic cardiomyopathy; N18.3 Chronic kidney disease, stage 3 (moderate); E11.22 Type 2 diabetes mellitus with diabetic chronic kidney disease; Z68.24 Body mass index [BMI] 24.0-24.9, adult; I73.9 Peripheral vascular disease, unspecified; I69.30 Unspecified sequelae of cerebral infarction; L89.329 Pressure ulcer of left buttock, unspecified stage; L89.319 Pressure ulcer of right buttock, unspecified stage; I87.2 Venous insufficiency (chronic) (peripheral); I27.20 Pulmonary hypertension, unspecified; D50.9 Iron deficiency anemia, unspecified
CPT/HCPCS: 36415; 51702; 71045; 74018; 74019; 74176; 80048; 80053; 81001; 82962; 83605; 83735; 84100; 84132; 85025; 85610; 85730; 87040; 87077; 87086; 87088; 87186; 92526; 93005; 94640; 94667; 94668; 97162; 97166; 97530; 97535; 97802; 99285; J7030; J7040; A4216; J0295; J1940